=== PATIENT | female | born 1980 | race Caucasian/White ===

== ENCOUNTER 2016-09-01 15:49 | Emergency (ER) | payer OTHER ==
[~2016-09-01 15:49] MED LIST: MOTR200T44 PO; PERCOCET PO
[2016-09-01] MEDS ORDERED: diphenhydrAMINE INJ 50MG/ML VIAL (J1200) As Ordered ONE (16:50)
[2016-09-01] MEDS ORDERED: KETOROLAC 30 MG/ML VIAL (J1885) As Ordered ONE (16:50)
[2016-09-01] MEDS ORDERED: METOCLOPRAMIDE INJ 10MG/2ML VIAL (J2765) As Ordered ONE (16:50)
--- NOTE | 2016-09-01 18:58 | EDDOCDS ---
Nurse's Notes [facility] Name: Lexi Metcalf Age: 36 yrs Sex: Female : 1980 Arrival Date: 09/01/2016 Time: 15:49 Bed I1 / M1 Private MD: Luc Walker Diagnosis: Migraine Presentation: 09/01 15:55 Presenting complaint: Patient states: migraine since last night. Nausea. Photophobia. ttb Decreased appetite. Right sided head pain. Brought in via ambulance. This patient has no additional risk factors. Adult Sepsis Screening: The patient does not have new or worsening altered mentation. Patient's respiratory rate is less than 22. Systolic blood pressure is greater than 100. Patient has a qSOFA score of 0- Negative Sepsis Screen. Suicide/Homicide risk assessment- the patient denies having any suicidal and/or homicidal ideations and does not present with any other emotional, behavioral or mental health complaints. Status: Patient is not a biomedical service engineer or dependent. Transition of care: patient was not received from another setting of care. 15:55 Acuity: ALFRED Level 3 ttb 15:55 Method Of Arrival: Ambulance ttb Triage Assessment: 15:57 Headache History: This headache is like all previous headaches. General: Appears ttb uncomfortable, well nourished, Behavior is cooperative, pleasant. Pain: Pain currently is 10 out of 10 on a pain scale. Pain began gradually 1 day ago Also complains of nausea, photophobia. HIV screening NA for this visit Offered previously. Neurological: Level of Consciousness is awake, alert, Oriented to person, place, time, Gait is steady, Speech is normal, Denies weakness numbness Reports dizziness, headache photophobia. Cardiovascular: Chest pain is denied. Respiratory: No deficits noted. Airway is patent Denies cough, shortness of breath. GI: Reports nausea. Derm: Skin is normal. Injury Description: No known injury. ORTHOPEDIC ASSISTANT: 15:57 LMP 08/25/2016 ttb Historical: - Allergies: no known allergies; - Home Meds: 1. Fioricet Oral 1 cap as needed (Last dose: 09/01/2016 14:00) 2. hydroxyzine HCl 50 mg Oral tab 1 tab 4 times per day (Last dose: 09/01/2016 09:00) 3. trazodone 50 mg Oral tab 1 tab as needed for sleep (Last dose: Unknown) 4. Zoloft 75 mg Oral 1 tab once daily (Last dose: 09/01/2016 08:00) - PMHx: Migraine Headaches; Depression; Anxiety Disorder; - PSHx: ; abscess from right arm removed; - Social history: Smoking status: Patient states was never smoker of tobacco. Patient/guardian denies using alcohol, street drugs, No barriers to communication noted, The patient speaks fluent Faroese, Speaks appropriately for age. - Family history: Not pertinent. - : The pt / caregiver states he / she is not on anticoagulants. Home medication list is obtained from the patient. - Exposure Risk Screening:: None identified. Screenin:59 Screening information is obtained from the patient. Fall risk: No risks identified. kc3 Assistance ADL's: requires no assistance with activities of daily living. Abuse/DV Screen: The patient / caregiver reports he/she is: not in a situation that causes fear, pain or injury. Nutritional screening: No deficits noted. Advance Directives: Currently, there is no health care proxy. home support is adequate. Assessment: 16:58 General: Appears uncomfortable, Behavior is appropriate for age, cooperative. Pain: kc3 Location: headache Pain currently is 10 out of 10 on a pain scale. Pain: Pain began 1 day ago. Pain: Also complains of nausea, photophobia. Neurological: Level of Consciousness is awake, alert, obeys commands, Oriented to person, place, time. Respiratory: Respiratory effort is even, unlabored. Derm: Skin is pink, warm & dry. 18:00 General: Appears in no apparent distress, comfortable, to be sleeping. Neurological: No kc3 deficits noted. Respiratory: Respiratory effort is even, unlabored. Derm: Skin is pink, warm & dry. 18:51 General: Appears in no apparent distress, comfortable, Behavior is appropriate for age, kc3 cooperative. Pain: Denies pain. Neurological: Level of Consciousness is awake, alert, obeys commands, Oriented to person, place, time. Respiratory: Respiratory effort is even, unlabored. Derm: Skin is pink, warm & dry. Vital Signs: 15:51 BP 107 / 62; Pulse 96; Resp 18; Temp 98.3(O); Pulse Ox 96% ; Weight 122.47 kg; Height 5 cmb ft. 4 in. (162.56 cm); Pain 10/10; 18:50 BP 100 / 65; Pulse 77; Resp 18; Temp 97.1; Pulse Ox 100% on R/A; Pain 0/10; kc3 18:50 Pain 0/10; kc3 18:50 Pain 0/10; kc3 18:50 Pain 0/10; kc3 15:51 Body Mass Index 46.34 (122.47 kg, 162.56 cm) cmb Vitals: 15:51 Log In Time N/A - ambulance arrival. cmb ED Course: 15:49 Patient visited by Zeina Cortez. cmb 15:49 Patient moved to Waiting cmb 15:50 Luc Walker is Private Physician. cmb 15:52 Patient moved to Pre RCE cmb 15:56 Triage Initiated ttb 15:59 Patient visited by Shelly Savage, RN. ttb 16:29 Patient moved to Triage 3 jf3 16:43 [facility] ke 16:44 Patient visited by Pj Schmidt FNP. ke 16:44 Patient visited by Pj Schmidt FNP. ke 16:49 Patient moved to I1 / M1 jf3 16:57 Inserted saline lock: 20 gauge in right antecubital area The patient tolerated the kc3 procedure well. 16:59 Patient visited by Gladys Julio,KOMAL. ck1 16:59 Patient visited by Joanna Parrish,KOMAL. kc3 16:59 The patient / caregiver is instructed regarding the plan of care and ED course. kc3 17:18 [facility] [place] Agreement was scanned into [employer] and attached to record. gjb 17:21 Patient visited by Pj Schmidt FNP. ke 17:44 Patient visited by Pj Schmidt FNP. ke 18:11 Patient visited by Pj Schmidt FNP. ke 18:40 Patient visited by Pj Schmidt FNP. ke 18:40 Luc Walker is Referral Physician. ke 18:52 Discontinued IV lock intact, bleeding controlled, pressure dressing applied, No kc3 redness/swelling at site. No procedures done that require assistance. Administered Medications: 16:59 Drug: diphenhydrAMINE 50 mg [diphenhydramine 50 mg/mL injection solution (1 mL)] Route: ck1 IVP; Site: right antecubital; 18:50 Follow up: Pain 0/10 Adult kc3 16:59 Drug: ketorolac 30 mg [ketorolac 30 mg/mL (1 mL) injection solution (1 mL)] Route: IVP; ck1 Site: right antecubital; 18:50 Follow up: Pain 0/10 Adult kc3 17:00 Drug: NS 0.9% 1000 ml [sodium chloride 0.9 % intravenous solution] Route: IV; Rate: ck1 bolus; Site: right antecubital; 17:00 Drug: Metoclopramide 10 mg [metoclopramide 5 mg/mL injection solution] Route: IV; Rate: ck1 40 mg/hr; Infused Over: 15 mins; Site: right antecubital; 18:50 Follow up: Pain 0/10 Adult kc3 Order Results: There are currently no results for this order. Outcome: 18:41 Discharge ordered by Provider. ke 18:54 Discharge Assessment: Patient awake, alert and oriented x 3. No cognitive and/or kc3 functional deficits noted. Patient verbalized understanding of disposition instructions. patient administered narcotics - yes. Pt provided with safe discharge. The following High Risk Discharge criteria are identified: None. Condition: stable. Discharge instructions given to patient, Instructed on discharge instructions, follow up and referral plans. medication usage, Demonstrated understanding of instructions, medications, Pt was receptive of discharge instructions/ teaching. Prescriptions given X 1. No special radiology studies were completed. Property :Personal belongings accompany Pt. 18:57 Patient left the ED. kc3 Signatures: Pj Schmidt, AIRPORT OPERATIONS MANAGER AIRPORT OPERATIONS MANAGER Gladys GlasgowRN RN ck1 Zeina Cortez Teresa, RN RN nolbertob Joanna Parrish RN RN kc3 Cong Amanda RN RN Alicia Mancilla MTDD
--- NOTE | 2016-09-01 18:58 | EDDOCDS ---
Physician Documentation [facility] Name: Lexi Metcalf Age: 36 yrs Sex: Female : 1980 Arrival Date: 09/01/2016 Time: 15:49 Bed I1 / M1 Private MD: Luc Walker Disposition: 09/01/16 18:41 Discharged to Home/Self Care. Impression: Migraine. - Condition is Stable. - Discharge Instructions: Migraine Headache. - Prescriptions for Reglan 10 mg Oral Tablet - take 1 tablet by ORAL route every 6 hours take 30 minutes before meals and at bedtime; 20 tablet. - Medication Reconciliation, Local Pharmacy Hours form. - Follow up: Luc Walker; When: As needed; Reason: Continuance of care. - Problem is an acute exacerbation. - Symptoms are resolved. Historical: - Allergies: no known allergies; - Home Meds: 1. Fioricet Oral 1 cap as needed (Last dose: 09/01/2016 14:00) 2. hydroxyzine HCl 50 mg Oral tab 1 tab 4 times per day (Last dose: 09/01/2016 09:00) 3. trazodone 50 mg Oral tab 1 tab as needed for sleep (Last dose: Unknown) 4. Zoloft 75 mg Oral 1 tab once daily (Last dose: 09/01/2016 08:00) - PMHx: Migraine Headaches; Depression; Anxiety Disorder; - PSHx: ; abscess from right arm removed; - Social history: Smoking status: Patient states was never smoker of tobacco. Patient/guardian denies using alcohol, street drugs, No barriers to communication noted, The patient speaks fluent Greek, Speaks appropriately for age. - Family history: Not pertinent. - : The pt / caregiver states he / she is not on anticoagulants. Home medication list is obtained from the patient. - Exposure Risk Screening:: None identified. SHIP OFFICER: 09/01 15:57 LMP 08/25/2016 ttb Vital Signs: 15:51 BP 107 / 62; Pulse 96; Resp 18; Temp 98.3(O); Pulse Ox 96% ; Weight 122.47 kg / 270 cmb lbs; Height 5 ft. 4 in. (162.56 cm); Pain 10/10; 18:50 BP 100 / 65; Pulse 77; Resp 18; Temp 97.1; Pulse Ox 100% on R/A; Pain 0/10; kc3 18:50 Pain 0/10; kc3 18:50 Pain 0/10; kc3 18:50 Pain 0/10; kc3 15:51 Body Mass Index 46.34 (122.47 kg, 162.56 cm) cmb MDM: 16:49 IV Saline Lock ordered. ke 16:49 NS 0.9% 1000 ml IV at bolus once ordered. ke 16:49 Metoclopramide 10 mg IV at 40 mg/hr once over 15 mins ordered. ke 16:49 diphenhydrAMINE 50 mg IVP once ordered. ke 16:49 ketorolac 30 mg IVP once ordered. ke 17:11 Financial registration complete. gjb 17:18 [facility] Payment Agreement was scanned into [employer] and attached to record. gjb Administered Medications: 16:59 Drug: diphenhydrAMINE 50 mg [diphenhydramine 50 mg/mL injection solution (1 mL)] Route: ck1 IVP; Site: right antecubital; 18:50 Follow up: Pain 0/10 Adult kc3 16:59 Drug: ketorolac 30 mg [ketorolac 30 mg/mL (1 mL) injection solution (1 mL)] Route: IVP; ck1 Site: right antecubital; 18:50 Follow up: Pain 0/10 Adult kc3 17:00 Drug: NS 0.9% 1000 ml [sodium chloride 0.9 % intravenous solution] Route: IV; Rate: ck1 bolus; Site: right antecubital; 17:00 Drug: Metoclopramide 10 mg [metoclopramide 5 mg/mL injection solution] Route: IV; Rate: ck1 40 mg/hr; Infused Over: 15 mins; Site: right antecubital; 18:50 Follow up: Pain 0/10 Adult kc3 Signatures: Pj Schmidt, Shelly Martínez RN RN Joanna Stiles RN RN kc3 Alicia Ching Connie RN ck1 The chart was reviewed and I authenticate all verbal orders and agree with the evaluation and treatment provided.Attachments: 17:18 [facility] Payment Agreement gjb MTDD
--- NOTE | 2016-09-03 19:58 | EDDOCDS ---
Physician Documentation [facility] Name: Lexi Metcalf Age: 36 yrs Sex: Female : 1980 Arrival Date: 09/01/2016 Time: 15:49 Bed I1 / M1 Private MD: Luc Walker Disposition: 09/01/16 18:41 Discharged to Home/Self Care. Impression: Migraine. - Condition is Stable. - Discharge Instructions: Migraine Headache. - Prescriptions for Reglan 10 mg Oral Tablet - take 1 tablet by ORAL route every 6 hours take 30 minutes before meals and at bedtime; 20 tablet. - Medication Reconciliation, Local Pharmacy Hours form. - Follow up: Luc Walker; When: As needed; Reason: Continuance of care. - Problem is an acute exacerbation. - Symptoms are resolved. Historical: - Allergies: no known allergies; - Home Meds: 1. Fioricet Oral 1 cap as needed (Last dose: 09/01/2016 14:00) 2. hydroxyzine HCl 50 mg Oral tab 1 tab 4 times per day (Last dose: 09/01/2016 09:00) 3. trazodone 50 mg Oral tab 1 tab as needed for sleep (Last dose: Unknown) 4. Zoloft 75 mg Oral 1 tab once daily (Last dose: 09/01/2016 08:00) - PMHx: Migraine Headaches; Depression; Anxiety Disorder; - PSHx: ; abscess from right arm removed; - Social history: Smoking status: Patient states was never smoker of tobacco. Patient/guardian denies using alcohol, street drugs, No barriers to communication noted, The patient speaks fluent Persian, Speaks appropriately for age. - Family history: Not pertinent. - : The pt / caregiver states he / she is not on anticoagulants. Home medication list is obtained from the patient. - Exposure Risk Screening:: None identified. POULTRY FARM MANAGER: 09/01 15:57 LMP 08/25/2016 ttb Vital Signs: 15:51 BP 107 / 62; Pulse 96; Resp 18; Temp 98.3(O); Pulse Ox 96% ; Weight 122.47 kg / 270 cmb lbs; Height 5 ft. 4 in. (162.56 cm); Pain 10/10; 18:50 BP 100 / 65; Pulse 77; Resp 18; Temp 97.1; Pulse Ox 100% on R/A; Pain 0/10; kc3 18:50 Pain 0/10; kc3 18:50 Pain 0/10; kc3 18:50 Pain 0/10; kc3 15:51 Body Mass Index 46.34 (122.47 kg, 162.56 cm) cmb MDM: 16:49 IV Saline Lock ordered. ke 16:49 NS 0.9% 1000 ml IV at bolus once ordered. ke 16:49 Metoclopramide 10 mg IV at 40 mg/hr once over 15 mins ordered. ke 16:49 diphenhydrAMINE 50 mg IVP once ordered. ke 16:49 ketorolac 30 mg IVP once ordered. ke 17:11 Financial registration complete. [facility] 17:18 [facility] Payment Agreement was scanned into [employer] and attached to record. [facility] 09/02 09:57 T-Sheet-- Draft Copy was scanned into [employer] and attached to record. gb Administered Medications: 09/01 16:59 Drug: diphenhydrAMINE 50 mg [diphenhydramine 50 mg/mL injection solution (1 mL)] Route: ck1 IVP; Site: right antecubital; 18:50 Follow up: Pain 0/10 Adult kc3 16:59 Drug: ketorolac 30 mg [ketorolac 30 mg/mL (1 mL) injection solution (1 mL)] Route: IVP; ck1 Site: right antecubital; 18:50 Follow up: Pain 0/10 Adult kc3 17:00 Drug: NS 0.9% 1000 ml [sodium chloride 0.9 % intravenous solution] Route: IV; Rate: ck1 bolus; Site: right antecubital; 17:00 Drug: Metoclopramide 10 mg [metoclopramide 5 mg/mL injection solution] Route: IV; Rate: ck1 40 mg/hr; Infused Over: 15 mins; Site: right antecubital; 18:50 Follow up: Pain 0/10 Adult kc3 Signatures: Khushbu Fernandez, Manpreet Reg Pj Landeros, DRUM CLEANER DRUM CLEANER Shelly Marrero RN RN ttb Joanna Parrish RN RN kc3 Alicia Ching gjGladys Anne RN ck1 The chart was reviewed and I authenticate all verbal orders and agree with the evaluation and treatment provided.Attachments: 17:18 [facility] Payment Agreement gjb 09/02 09:57 T-Sheet-- Draft Copy gb Chart Complete MTDD
--- NOTE | 2016-09-03 19:58 | EDDOCDS ---
Physician Documentation [facility] Name: Lexi Metcalf Age: 36 yrs Sex: Female : 1980 Arrival Date: 09/01/2016 Time: 15:49 Bed I1 / M1 Private MD: Luc Walker Disposition: 09/01/16 18:41 Discharged to Home/Self Care. Impression: Migraine. - Condition is Stable. - Discharge Instructions: Migraine Headache. - Prescriptions for Reglan 10 mg Oral Tablet - take 1 tablet by ORAL route every 6 hours take 30 minutes before meals and at bedtime; 20 tablet. - Medication Reconciliation, Local Pharmacy Hours form. - Follow up: Luc Walker; When: As needed; Reason: Continuance of care. - Problem is an acute exacerbation. - Symptoms are resolved. Historical: - Allergies: no known allergies; - Home Meds: 1. Fioricet Oral 1 cap as needed (Last dose: 09/01/2016 14:00) 2. hydroxyzine HCl 50 mg Oral tab 1 tab 4 times per day (Last dose: 09/01/2016 09:00) 3. trazodone 50 mg Oral tab 1 tab as needed for sleep (Last dose: Unknown) 4. Zoloft 75 mg Oral 1 tab once daily (Last dose: 09/01/2016 08:00) - PMHx: Migraine Headaches; Depression; Anxiety Disorder; - PSHx: ; abscess from right arm removed; - Social history: Smoking status: Patient states was never smoker of tobacco. Patient/guardian denies using alcohol, street drugs, No barriers to communication noted, The patient speaks fluent Pashto, Speaks appropriately for age. - Family history: Not pertinent. - : The pt / caregiver states he / she is not on anticoagulants. Home medication list is obtained from the patient. - Exposure Risk Screening:: None identified. CLINICAL REVIEW SPECIALIST: 09/01 15:57 LMP 08/25/2016 ttb Vital Signs: 15:51 BP 107 / 62; Pulse 96; Resp 18; Temp 98.3(O); Pulse Ox 96% ; Weight 122.47 kg / 270 cmb lbs; Height 5 ft. 4 in. (162.56 cm); Pain 10/10; 18:50 BP 100 / 65; Pulse 77; Resp 18; Temp 97.1; Pulse Ox 100% on R/A; Pain 0/10; kc3 18:50 Pain 0/10; kc3 18:50 Pain 0/10; kc3 18:50 Pain 0/10; kc3 15:51 Body Mass Index 46.34 (122.47 kg, 162.56 cm) cmb MDM: 16:49 IV Saline Lock ordered. ke 16:49 NS 0.9% 1000 ml IV at bolus once ordered. ke 16:49 Metoclopramide 10 mg IV at 40 mg/hr once over 15 mins ordered. ke 16:49 diphenhydrAMINE 50 mg IVP once ordered. ke 16:49 ketorolac 30 mg IVP once ordered. ke 17:11 Financial registration complete. [facility] 17:18 [facility] Payment Agreement was scanned into [employer] and attached to record. [facility] 09/02 09:57 T-Sheet-- Draft Copy was scanned into [employer] and attached to record. gb Administered Medications: 09/01 16:59 Drug: diphenhydrAMINE 50 mg [diphenhydramine 50 mg/mL injection solution (1 mL)] Route: ck1 IVP; Site: right antecubital; 18:50 Follow up: Pain 0/10 Adult kc3 16:59 Drug: ketorolac 30 mg [ketorolac 30 mg/mL (1 mL) injection solution (1 mL)] Route: IVP; ck1 Site: right antecubital; 18:50 Follow up: Pain 0/10 Adult kc3 17:00 Drug: NS 0.9% 1000 ml [sodium chloride 0.9 % intravenous solution] Route: IV; Rate: ck1 bolus; Site: right antecubital; 17:00 Drug: Metoclopramide 10 mg [metoclopramide 5 mg/mL injection solution] Route: IV; Rate: ck1 40 mg/hr; Infused Over: 15 mins; Site: right antecubital; 18:50 Follow up: Pain 0/10 Adult kc3 Signatures: Khushbu Fernandez, Manpreet Reg Pj Landeros, THREAD REELER THREAD REELER Shelly Marrero RN RN ttb Joanna Parrish RN RN kc3 Alicia Ching gjGladys Anne RN ck1 The chart was reviewed and I authenticate all verbal orders and agree with the evaluation and treatment provided.Attachments: 17:18 [facility] Payment Agreement gjb 09/02 09:57 T-Sheet-- Draft Copy gb Chart Complete MTDD
--- NOTE | 2016-09-03 19:58 | EDDOCDS ---
Nurse's Notes [facility] Name: Lexi Metcalf Age: 36 yrs Sex: Female : 1980 Arrival Date: 09/01/2016 Time: 15:49 Bed I1 / M1 Private MD: Luc Walker Diagnosis: Migraine Presentation: 09/01 15:55 Presenting complaint: Patient states: migraine since last night. Nausea. Photophobia. ttb Decreased appetite. Right sided head pain. Brought in via ambulance. This patient has no additional risk factors. Adult Sepsis Screening: The patient does not have new or worsening altered mentation. Patient's respiratory rate is less than 22. Systolic blood pressure is greater than 100. Patient has a qSOFA score of 0- Negative Sepsis Screen. Suicide/Homicide risk assessment- the patient denies having any suicidal and/or homicidal ideations and does not present with any other emotional, behavioral or mental health complaints. 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 Transition of care: patient was not received from another setting of care. 15:55 Acuity: ALFRED Level 3 ttb 15:55 Method Of Arrival: Ambulance ttb Triage Assessment: 15:57 Headache History: This headache is like all previous headaches. General: Appears ttb uncomfortable, well nourished, Behavior is cooperative, pleasant. Pain: Pain currently is 10 out of 10 on a pain scale. Pain began gradually 1 day ago Also complains of nausea, photophobia. HIV screening NA for this visit Offered previously. Neurological: Level of Consciousness is awake, alert, Oriented to person, place, time, Gait is steady, Speech is normal, Denies weakness numbness Reports dizziness, headache photophobia. Cardiovascular: Chest pain is denied. Respiratory: No deficits noted. Airway is patent Denies cough, shortness of breath. GI: Reports nausea. Derm: Skin is normal. Injury Description: No known injury. 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 Fioricet Oral 1 cap as needed (Last dose: 09/01/2016 14:00) 2. hydroxyzine HCl 50 mg Oral tab 1 tab 4 times per day (Last dose: 09/01/2016 09:00) 3. trazodone 50 mg Oral tab 1 tab as needed for sleep (Last dose: Unknown) 4. Zoloft 75 mg Oral 1 tab once daily (Last dose: 09/01/2016 08:00) - PMHx: Migraine Headaches; Depression; Anxiety Disorder; - PSHx: ; abscess from right arm removed; - Social history: Smoking status: Patient states was never smoker of tobacco. Patient/guardian denies using alcohol, street drugs, No barriers to communication noted, The patient speaks fluent Divehi, Speaks appropriately for age. - Family history: Not pertinent. - : The pt / caregiver states he / she is not on anticoagulants. Home medication list is obtained from the patient. - Exposure Risk Screening:: None identified. Screenin:59 Screening information is obtained from the patient. Fall risk: No risks identified. kc3 Assistance ADL's: requires no assistance with activities of daily living. Abuse/DV Screen: The patient / caregiver reports he/she is: not in a situation that causes fear, pain or injury. Nutritional screening: No deficits noted. Advance Directives: Currently, there is no health care proxy. home support is adequate. Assessment: 16:58 General: Appears uncomfortable, Behavior is appropriate for age, cooperative. Pain: kc3 Location: headache Pain currently is 10 out of 10 on a pain scale. Pain: Pain began 1 day ago. Pain: Also complains of nausea, photophobia. Neurological: Level of Consciousness is awake, alert, obeys commands, Oriented to person, place, time. Respiratory: Respiratory effort is even, unlabored. Derm: Skin is pink, warm & dry. 18:00 General: Appears in no apparent distress, comfortable, to be sleeping. Neurological: No kc3 deficits noted. Respiratory: Respiratory effort is even, unlabored. Derm: Skin is pink, warm & dry. 18:51 General: Appears in no apparent distress, comfortable, Behavior is appropriate for age, kc3 cooperative. Pain: Denies pain. Neurological: Level of Consciousness is awake, alert, obeys commands, Oriented to person, place, time. Respiratory: Respiratory effort is even, unlabored. Derm: Skin is pink, warm & dry. Vital Signs: 15:51 BP 107 / 62; Pulse 96; Resp 18; Temp 98.3(O); Pulse Ox 96% ; Weight 122.47 kg; Height 5 cmb ft. 4 in. (162.56 cm); Pain 10/10; 18:50 BP 100 / 65; Pulse 77; Resp 18; Temp 97.1; Pulse Ox 100% on R/A; Pain 0/10; kc3 18:50 Pain 0/10; kc3 18:50 Pain 0/10; kc3 18:50 Pain 0/10; kc3 15:51 Body Mass Index 46.34 (122.47 kg, 162.56 cm) cmb Vitals: 15:51 Log In Time N/A - ambulance arrival. cmb ED Course: 15:49 Patient visited by Zeina Cortez. cmb 15:49 Patient moved to Waiting cmb 15:50 Luc Walker is Private Physician. cmb 15:52 Patient moved to Pre RCE cmb 15:56 Triage Initiated ttb 15:59 Patient visited by Shelly Savage, RN. ttb 16:29 Patient moved to Triage 3 jf3 16:43 [facility] ke 16:44 Patient visited by Pj Schmidt FNP. ke 16:44 Patient visited by Pj Schmidt FNP. ke 16:49 Patient moved to I1 / M1 jf3 16:57 Inserted saline lock: 20 gauge in right antecubital area The patient tolerated the kc3 procedure well. 16:59 Patient visited by Gladys Julio,RN. ck1 16:59 Patient visited by Joanna Parrish,KOMAL. kc3 16:59 The patient / caregiver is instructed regarding the plan of care and ED course. kc3 17:18 [facility] Payment Agreement was scanned into [employer] and attached to record. gjb 17:21 Patient visited by Pj Schmidt FNP. ke 17:44 Patient visited by Pj Schmidt FNP. ke 18:11 Patient visited by Pj Schmidt FNP. ke 18:40 Patient visited by Pj Schmidt FNP. ke 18:40 Luc Walker is Referral Physician. ke 18:52 Discontinued IV lock intact, bleeding controlled, pressure dressing applied, No kc3 redness/swelling at site. No procedures done that require assistance. 09/02 09:57 T-Sheet-- Draft Copy was scanned into [employer] and attached to record. gb Administered Medications: 09/01 16:59 Drug: diphenhydrAMINE 50 mg [diphenhydramine 50 mg/mL injection solution (1 mL)] Route: ck1 IVP; Site: right antecubital; 18:50 Follow up: Pain 0/10 Adult kc3 16:59 Drug: ketorolac 30 mg [ketorolac 30 mg/mL (1 mL) injection solution (1 mL)] Route: IVP; ck1 Site: right antecubital; 18:50 Follow up: Pain 0/10 Adult kc3 17:00 Drug: NS 0.9% 1000 ml [sodium chloride 0.9 % intravenous solution] Route: IV; Rate: ck1 bolus; Site: right antecubital; 17:00 Drug: Metoclopramide 10 mg [metoclopramide 5 mg/mL injection solution] Route: IV; Rate: ck1 40 mg/hr; Infused Over: 15 mins; Site: right antecubital; 18:50 Follow up: Pain 0/10 Adult kc3 Order Results: There are currently no results for this order. Outcome: 18:41 Discharge ordered by Provider. ke 18:54 Discharge Assessment: Patient awake, alert and oriented x 3. No cognitive and/or kc3 functional deficits noted. Patient verbalized understanding of disposition instructions. patient administered narcotics - yes. Pt provided with safe discharge. The following High Risk Discharge criteria are identified: None. Condition: stable. Discharge instructions given to patient, Instructed on discharge instructions, follow up and referral plans. medication usage, Demonstrated understanding of instructions, medications, Pt was receptive of discharge instructions/ teaching. Prescriptions given X 1. No special radiology studies were completed. Property :Personal belongings accompany Pt. 18:57 Patient left the ED. kc3 Signatures: Khushbu Fernandez, Reg Reg gb Pj Schmidt, [employer]ER [employer] TE[employer] ke Gladys JulioRN RN ck1 Zeina Cortez Teresa, RN RN Joanna Stiles RN RN kc3 Cong Amanda RN RN jf3 Alicia Ching Chart Complete MTDD
== END 2016-09-01 18:57 | disposition home or self-care (01) ==
LOC: M ED 15:49
DX: G43.909 Migraine, unspecified, not intractable, without status migrainosus (principal); G44.019 Episodic cluster headache, not intractable; F32.9 Major depressive disorder, single episode, unspecified; F41.9 Anxiety disorder, unspecified; Z79.899 Other long term (current) drug therapy
CPT/HCPCS: 96374; 96375; 99283; J1200; J1885; J2765

== ENCOUNTER 2017-01-30 05:01 | Emergency (ER) | payer OTHER ==
[~2017-01-30] VITALS: Ht 162.6 cm; Wt 117.9 kg
[2017-01-30] MEDS ORDERED: DIVA500T3 (05:20)
[2017-01-30] MEDS ORDERED: SERT-138 (05:20)
[2017-01-30] MEDS ORDERED: SUMA100T2 (05:20)
[2017-01-30] MEDS ORDERED: HYDR-4274 (05:20)
[2017-01-30] MEDS ORDERED: MELO7.5T6 (05:20)
[2017-01-30 05:51] LABS: YEAST LIKE CELL URINE AUTO SMALL
[2017-01-30 07:10] LABS: CONTROL LINE UCG INT CTR LINE PRESENT
[2017-01-30] MEDS ORDERED: PYRI200T5 PO (07:13)
[2017-01-30] MEDS ORDERED: BACT800T5 PO (07:13)
[2017-01-30] MEDS ORDERED: DIFL200T PO (07:13)
[2017-01-30] MEDS ORDERED: PHENAZOPYRIDINE 100 MG TAB PO ONE (07:15)
[2017-01-30] MEDS ORDERED: BACTRIM 160MG/800MG DS TAB PO ONE (07:15)
[2017-01-30] MEDS ORDERED: FLUCONAZOLE 100 MG TAB PO ONE (07:15)
[2017-01-30 07:22] VITALS: BP 122/5
== END 2017-01-30 07:28 | disposition home or self-care (01) ==
LOC: M ED 05:36
DX: N30.01 Acute cystitis with hematuria (principal); B37.3 Candidiasis of vulva and vagina; R10.2 Pelvic and perineal pain; R51 Headache; F32.9 Major depressive disorder, single episode, unspecified; Z87.440 Personal history of urinary (tract) infections; Z79.899 Other long term (current) drug therapy

== ENCOUNTER 2017-03-05 14:20 | Emergency (ER) | payer OTHER ==
[~2017-03-05] VITALS: Ht 162.6 cm; Wt 121.5 kg
[~2017-03-05 14:20] MED LIST changes: +BACT800T5 PO; +DIFL200T PO; +DIVA500T3; +HYDR50TA70; +MELO7.5T7; +PYRI1TAB5 PO; +SERT-138; +SUMA100T2
[2017-03-05 14:21] VITALS: BP 129/69
[2017-03-05] MEDS ORDERED: BACTRIM 160MG/800MG DS TAB PO ONE (15:00)
[2017-03-05] MEDS ORDERED: ACETAMINOPHEN 325 MG TAB PO ONE (15:00)
[2017-03-05] MEDS ORDERED: PHENAZOPYRIDINE 100 MG TAB PO ONE (15:00)
[2017-03-05] MEDS ORDERED: BACT800T5 PO (15:03)
== END 2017-03-05 15:09 | disposition home or self-care (01) ==
LOC: M ED 14:20
DX: N30.01 Acute cystitis with hematuria (principal); F32.9 Major depressive disorder, single episode, unspecified; R51 Headache; Z87.440 Personal history of urinary (tract) infections; Z87.891 Personal history of nicotine dependence; Z79.899 Other long term (current) drug therapy

== ENCOUNTER 2017-07-16 16:56 | Emergency (ER) | payer OTHER ==
[~2017-07-16] VITALS: Ht 162.6 cm; Wt 122.2 kg
[2017-07-16] MEDS ORDERED: NORCOTAB PO (19:05)
[2017-07-16] MEDS ORDERED: CLEO300C2 PO (19:05)
[2017-07-16 19:13] VITALS: BP 124/75
[2017-07-16] MEDS ORDERED: CLINDAMYCIN 150 MG CAP PO ONE (19:15)
[2017-07-16] MEDS ORDERED: NORCO 5/325MG TABLET (BULK FOR ED) PO ONE (19:15)
== END 2017-07-16 19:20 | disposition home or self-care (01) ==
LOC: M ED 16:56
DX: L02.412 Cutaneous abscess of left axilla (principal); F41.9 Anxiety disorder, unspecified; F33.9 Major depressive disorder, recurrent, unspecified; E66.9 Obesity, unspecified; Z79.899 Other long term (current) drug therapy; Z98.890 Other specified postprocedural states; Z87.2 Personal history of diseases of the skin and subcutaneous tissue

== ENCOUNTER 2017-08-15 15:44 | Emergency (ER) | payer OTHER ==
[2017-08-15] MEDS: NS 1,000 ML IV (17:37)
[2017-08-15] MEDS: KETOROLAC 30 MG/ML VIAL (J1885) IV (17:37)
[2017-08-15] MEDS: diphenhydrAMINE INJ 50MG/ML VIAL (J1200) IV (17:38)
[2017-08-15] MEDS: METOCLOPRAMIDE INJ 10MG/2ML VIAL (J2765) IV (17:41)
== END 2017-08-15 19:22 | disposition home or self-care (01) ==
LOC: M ED 15:44
DX: G43.009 Migraine without aura, not intractable, without status migrainosus (principal); G89.29 Other chronic pain; Z79.899 Other long term (current) drug therapy; Z87.891 Personal history of nicotine dependence
CPT/HCPCS: J1200

== ENCOUNTER 2017-09-10 18:13 | Emergency (ER) | payer OTHER ==
[2017-09-10] MEDS: METOCLOPRAMIDE INJ 10MG/2ML VIAL (J2765) IV (18:30)
[2017-09-10] MEDS: KETOROLAC 30 MG/ML VIAL (J1885) IV (18:54)
[2017-09-10] MEDS: diphenhydrAMINE INJ 50MG/ML VIAL (J1200) IV (18:54)
[2017-09-10] MEDS: NS 1,000 ML IV (18:55)
== END 2017-09-10 20:22 | disposition home or self-care (01) ==
LOC: M ED 18:13
DX: G43.009 Migraine without aura, not intractable, without status migrainosus (principal); G89.29 Other chronic pain; Z79.899 Other long term (current) drug therapy; Z87.891 Personal history of nicotine dependence
CPT/HCPCS: J1200

== ENCOUNTER 2017-09-15 16:41 | Emergency (ER) | payer OTHER ==
[2017-09-15] MEDS: NS 1,000 ML IV (20:40)
[2017-09-15] MEDS: METOCLOPRAMIDE INJ 10MG/2ML VIAL (J2765) IV (20:40)
[2017-09-15] MEDS: KETOROLAC 30 MG/ML VIAL (J1885) IV (20:40)
[2017-09-15] MEDS: ACETAMINOPHEN 325 MG TAB PO (20:40)
[2017-09-15 20:46] LABS: BASO % 0.3 % (0.0-1.0); HEMATOCRIT 37.8 % (36.0-47.0); HEMOGLOBIN 12.1 g/dl (12.0-16.0); LYMPH # 0.5 10^3/uL (1.5-4.5); MEAN CORPUSCULAR HEMOGLOBIN 25.6 pg (27.0-33.0); MEAN CORPUSCULAR VOLUME 79.9 fl (80.0-96.0); MONO # 0.5 10^3/uL (0.0-0.8); MONO % 15.7 % (0.0-5.0); PLATELET COUNT, AUTOMATED 172 10^3/uL (150-450); RED BLOOD COUNT 4.73 10^6/uL (4.00-5.40); RED CELL DISTRIBUTION WIDTH 13.9 % (11.5-14.5)
[2017-09-15 21:06] LABS: ANION GAP 5 MEQ/L (8-16); BLOOD UREA NITROGEN 10 MG/DL (7-18); CALCIUM LEVEL 8.2 MG/DL (8.5-10.1); CARBON DIOXIDE LEVEL 28 MEQ/L (21-32); CHLORIDE LEVEL 104 MEQ/L (98-107); CREATININE FOR GFR 0.67 MG/DL (0.55-1.02); GLOMERULAR FILTRATION RATE > 60.0 (>60); GLUCOSE, FASTING 97 MG/DL (70-100); SODIUM LEVEL 137 MEQ/L (136-145)
[2017-09-15 21:10] LABS: ERYTHROCYTE SEDIMENTATION RATE 21 mm/hr (0-20)
== END 2017-09-15 22:27 | disposition home or self-care (01) ==
LOC: M ED 16:41
DX: G43.909 Migraine, unspecified, not intractable, without status migrainosus (principal); B34.9 Viral infection, unspecified; Z87.891 Personal history of nicotine dependence
CPT/HCPCS: J1885

== ENCOUNTER → 2017-09-27 | Outpatient (CLI) | payer OTHER | LOC: M RAD 14:22 | DX: L73.2 Hidradenitis suppurativa (principal) | CPT/HCPCS: 76882 ==

== ENCOUNTER 2017-12-06 05:01 | Emergency (ER) | payer OTHER ==
[2017-12-06 06:10] LABS: BASO % 0.3 % (0.0-1.0); EOS # 0.1 10^3/uL (0.0-0.50); EOS % 2.2 % (0.0-3.0); HEMATOCRIT 39.2 % (36.0-47.0); HEMOGLOBIN 12.5 g/dl (12.0-15.5); IMMATURE GRANULOCYTE % 0.2 % (0-3.0); LYMPH # 1.6 10^3/uL (1.5-4.5); LYMPH % 25.2 % (24.0-44.0); MEAN CORPUSCULAR HEMOGLOBIN 25.1 pg (27.0-33.0); MEAN CORPUSCULAR HGB CONC 31.9 g/dl (32.0-36.5); MEAN CORPUSCULAR VOLUME 78.6 fl (80.0-96.0); MONO # 0.6 10^3/uL (0.0-0.8); MONO % 9.1 % (0.0-5.0); PLATELET COUNT, AUTOMATED 246 10^3/uL (150-450); RED BLOOD COUNT 4.99 10^6/uL (4.00-5.40); WHITE BLOOD COUNT 6.4 10^3/uL (4.0-10.0)
[2017-12-06 06:16] LABS: APPEARANCE, URINE HAZY (CLEAR); BACTERIA, URINE AUTO NEGATIVE (NEGATIVE); BILIRUBIN, URINE AUTO NEGATIVE (NEGATIVE); BLOOD, URINE BLOOD 3+ (NEGATIVE); COLOR, URINE YELLOW (YELLOW); GLUCOSE, URINE (UA) AUTO NEGATIVE (NEGATIVE); KETONE, URINE AUTO NEGATIVE (NEGATIVE); LEUKOCYTE ESTERASE, URINE AUTO NEGATIVE (NEGATIVE); NITRITE, URINE AUTO NEGATIVE (NEGATIVE); PROTEIN, URINE AUTO NEGATIVE (NEGATIVE); RBC, URINE AUTO TNTC /HPF (0-3); SQUAMOUS EPITHELIAL CELL UR AU 1 /HPF (0-6); UROBILINOGEN, URINE AUTO 0.2 mg/dL (0.0-2.0); WBC, URINE AUTO 8 /HPF (0-3); YEAST LIKE CELL URINE AUTO SMALL
[2017-12-06 06:24] LABS: CONTROL LINE HCG INT CTR LINE PRESENT; HCG, SERUM QUALITATIVE NEGATIVE (NEGATIVE)
[2017-12-06] MEDS: MORPHINE 4 MG/ML 1ML VIAL/SYRINGE (J2270) IV (06:30)
[2017-12-06] MEDS: METOCLOPRAMIDE INJ 10MG/2ML VIAL (J2765) IV (06:31)
[2017-12-06] MEDS: NS 1,000 ML IV (06:31)
[2017-12-06 06:34] LABS: ALBUMIN 3.5 GM/DL (3.2-5.2); ALBUMIN/GLOBULIN RATIO 0.85 (1.00-1.93); ALKALINE PHOSPHATASE 88 U/L (45-117); ALT/SGPT 25 U/L (12-78); ANION GAP 3 MEQ/L (8-16); AST/SGOT 18 U/L (7-37); BILIRUBIN,DIRECT < 0.1 MG/DL (0.0-0.2); BILIRUBIN,TOTAL 0.2 MG/DL (0.2-1.0); BLOOD UREA NITROGEN 16 MG/DL (7-18); CALCIUM LEVEL 8.6 MG/DL (8.5-10.1); CARBON DIOXIDE LEVEL 30 MEQ/L (21-32); CHLORIDE LEVEL 106 MEQ/L (98-107); CREATININE FOR GFR 0.65 MG/DL (0.55-1.30); GLOMERULAR FILTRATION RATE > 60.0 (>60); GLUCOSE, FASTING 115 MG/DL (70-100); LIPASE 162 U/L (73-393); POTASSIUM SERUM 4.4 MEQ/L (3.5-5.1); SODIUM LEVEL 139 MEQ/L (136-145); TOTAL PROTEIN 7.6 GM/DL (6.4-8.2)
== END 2017-12-06 08:55 | disposition home or self-care (01) ==
LOC: M ED 05:01
DX: K83.8 Other specified diseases of biliary tract (principal); R11.2 Nausea with vomiting, unspecified; F33.9 Major depressive disorder, recurrent, unspecified; G43.909 Migraine, unspecified, not intractable, without status migrainosus; Z87.891 Personal history of nicotine dependence
CPT/HCPCS: J2270

== ENCOUNTER 2017-12-16 10:28 | Day surgery (SDC) | payer OTHER ==
[2017-12-16] MEDS: LR 1,000 ML IV ×2 (11:54)
[2017-12-16] MEDS ORDERED: ROCURONIUM BROMIDE 50 MG/5 ML VIAL As Ordered ×2 (12:22)
[2017-12-16] MEDS ORDERED: PROPOFOL 200 MG/20 ML VIAL As Ordered ×2 (12:22)
[2017-12-16] MEDS ORDERED: fentaNYL 100 MCG/2 ML INJECTION (J3010) As Ordered ×4 (12:23→14:20)
[2017-12-16] MEDS ORDERED: MIDAZOLAM INJ 2 MG/2 ML VIAL (J2250) As Ordered ×2 (12:24)
[2017-12-16] MEDS ORDERED: LIDOCAINE 2% INJ 100 MG/5 ML SDV (FOR ANES.) As Ordered ×2 (12:33)
[2017-12-16] MEDS ORDERED: LIDOCAINE W/EPINEPHRINE 1% 20ML VIAL As Ordered ×2 (12:43)
[2017-12-16] MEDS ORDERED: fentaNYL 100 MCG/2 ML INJECTION (J3010) IV ×2 (14:45)
[2017-12-16] MEDS ORDERED: LR 1,000 ML IV ×2 (14:45)
[2017-12-16] MEDS ORDERED: NORCO, ANEXSIA 5/325MG TABLET (HYDROcodone/ACETAMINOPHEN) PO ×2 (14:45)
[2017-12-16] MEDS ORDERED: METOCLOPRAMIDE INJ 10MG/2ML VIAL (J2765) IV ×2 (14:45)
[2017-12-16] MEDS: ONDANSETRON 4MG/2ML VIAL (J2405) IV ×2 (15:15)
[2017-12-16] MEDS: PERCOCET 5MG/325MG TAB PO ×4 (15:15→15:41)
== END 2017-12-16 18:20 | disposition home or self-care (01) ==
LOC: M SDC 10:28
DX: K80.20 Calculus of gallbladder without cholecystitis without obstruction (principal); K21.9 Gastro-esophageal reflux disease without esophagitis; F41.9 Anxiety disorder, unspecified; F32.9 Major depressive disorder, single episode, unspecified; Z87.891 Personal history of nicotine dependence; Z79.899 Other long term (current) drug therapy
CPT/HCPCS: 47562

== ENCOUNTER → 2018-01-06 | Outpatient (REF) | payer OTHER ==
[2018-01-06 18:23] LABS: ESTIMATED AVERAGE GLUCOSE 120 MG/DL (60-110); HEMOGLOBIN A1c 5.8 %
[2018-01-06 18:39] LABS: TOTAL 25(OH) VITAMIN D 20.7 NG/ML (30.0-100.0)
[2018-01-06 18:41] LABS: CHOLESTEROL LEVEL 156 MG/DL (<200); CHOLESTEROL RISK RATIO 4.216 (<5); HDL CHOLESTEROL 37 MG/DL (>40); LDL CHOLESTEROL 84.6 MG/DL (<100); NON-HDL-C 119 MG/DL; TRIGLYCERIDES LEVEL 172 MG/DL (<150)
[2018-01-06 19:19] LABS: HIV 1&2 SCREEN CENTAUR NEGATIVE (NEGATIVE)
[2018-01-06 20:09] LABS: CHLAMYDIA DNA AMPLIFICATION NEGATIVE (NEGATIVE); GC DNA AMPLIFICATION NEGATIVE (NEGATIVE)
[2018-01-09 09:20] LABS: HEPATITIS B SURFACE ANTIBODY POSITIVE (POSITIVE)
== END ==
LOC: M LAB REF 16:42
DX: Z00.00 Encounter for general adult medical examination without abnormal findings (principal)
CPT/HCPCS: 84443

== ENCOUNTER 2018-03-02 12:30 | Emergency (ER) | payer OTHER, MEDICAID | END 2018-03-02 15:16 | disposition home or self-care (01) | LOC: M ED 12:30 | DX: J02.0 Streptococcal pharyngitis (principal); R51 Headache; Z87.440 Personal history of urinary (tract) infections; F41.9 Anxiety disorder, unspecified; F32.9 Major depressive disorder, single episode, unspecified; Z79.899 Other long term (current) drug therapy | CPT/HCPCS: 87880 ==

== ENCOUNTER 2018-03-28 10:26 | Outpatient (RCR) | payer OTHER | END 2018-04-21 | LOC: M PT 10:26 | DX: Z51.89 Encounter for other specified aftercare (principal); M54.2 Cervicalgia; M54.5 Low back pain | CPT/HCPCS: 97010 ==

== ENCOUNTER → 2018-04-11 | Outpatient (REF) | LOC: M SMT 12:23 | DX: Z02.9 Encounter for administrative examinations, unspecified (principal) ==

== ENCOUNTER 2018-05-29 10:04 | Emergency (ER) | payer OTHER, MEDICAID | END 2018-05-29 11:31 | disposition home or self-care (01) | LOC: M ED 10:04 | DX: M54.5 Low back pain (principal); G89.29 Other chronic pain; M51.9 Unspecified thoracic, thoracolumbar and lumbosacral intervertebral disc disorder; R51 Headache; Z87.891 Personal history of nicotine dependence; Z79.899 Other long term (current) drug therapy | CPT/HCPCS: 99283 ==

== ENCOUNTER 2018-09-20 12:30 | Outpatient (RCR) | payer OTHER ==
[~2018-09-20 12:30] MED LIST changes: +CETI10TA PO; +CLEO300C2 PO; -DIVA500T3; +DIVA500T94 PO; +HYDR-643; -HYDR50TA70; +HYDR50TA70 PO; +IBUP80TA PO; +IMIT100T PO; +KEFL500C17 PO; +NAPR-885; +NORCOTAB PO; +PERC5TAB12 PO; +SERT-155 PO; +SUMA100T2 PO; +Tizanidine
== END 2018-09-21 ==
LOC: M PT 12:30
PROVIDERS: ATTEND Family Medicine Addiction Medicine
DX: M54.5 Low back pain (principal)

== ENCOUNTER 2018-10-18 09:45 | Outpatient (RCR) | payer OTHER | END 2018-10-19 | LOC: M PT 09:45 | PROVIDERS: ATTEND Family Medicine Addiction Medicine | DX: M54.5 Low back pain (principal) ==

== ENCOUNTER 2018-11-07 09:18 | Outpatient (RCR) | payer OTHER, MEDICAID | END 2018-11-19 | LOC: M PT 09:18 | PROVIDERS: ATTEND Family Medicine Addiction Medicine | DX: M54.5 Low back pain (principal) ==

== ENCOUNTER 2019-02-15 09:26 | Outpatient (RCR) | payer OTHER ==
[~2019-02-15 09:26] MED LIST changes: +HYDR-3715 PO; -NORCOTAB PO
== END 2019-02-18 ==
LOC: M PT 09:26
PROVIDERS: ATTEND Family Medicine Addiction Medicine
DX: M54.5 Low back pain (principal)

== ENCOUNTER 2019-03-07 11:15 | Outpatient (RCR) | payer OTHER | END 2019-03-21 | LOC: M PT 11:15 | PROVIDERS: ATTEND Family Medicine Addiction Medicine | DX: Z51.89 Encounter for other specified aftercare (principal); M54.5 Low back pain ==

== ENCOUNTER 2019-07-05 16:38 | Emergency (ER) | payer MEDICAID, OTHER ==
[~2019-07-05 16:38] MED LIST changes: -SERT-155 PO; +SERT50TA29 PO
[2019-07-05] MEDS ORDERED: TIZA4TAB4 PO (16:49)
[2019-07-05] MEDS ORDERED: KETOROLAC 30 MG/ML VIAL (J1885) IV ONE (17:15)
[2019-07-05] MEDS ORDERED: ONDANSETRON 4MG/2ML VIAL (J2405) IV ONE (17:15)
[2019-07-05] MEDS ORDERED: diphenhydrAMINE INJ 50MG/ML VIAL (J1200) IV ONE (17:15)
[2019-07-05 20:10] VITALS: BP 121/68
== END 2019-07-05 20:13 | disposition home or self-care (01) ==
LOC: EDBD 16:38 → M ED 16:38
DX: G43.019 Migraine without aura, intractable, without status migrainosus (principal); F90.9 Attention-deficit hyperactivity disorder, unspecified type; M54.9 Dorsalgia, unspecified; F32.9 Major depressive disorder, single episode, unspecified; Z87.891 Personal history of nicotine dependence; Z79.899 Other long term (current) drug therapy
CPT/HCPCS: 96374; 96375; 99284; J1200; J1885; J2405

== ENCOUNTER 2019-07-29 01:16 | Emergency (ER) | payer MEDICAID, OTHER ==
[~2019-07-29] VITALS: Ht 162.6 cm; Wt 136.4 kg
[~2019-07-29 01:16] MED LIST changes: +TIZA4TAB4 PO
[2019-07-29] MEDS ORDERED: IPRA6SP (01:45)
[2019-07-29] MEDS ORDERED: NS 1,000 ML IV ONE (01:45)
[2019-07-29] MEDS ORDERED: GI COCKTAIL 50ML BTL(HYOSCYAMINE/MAALOX/LIDOCAINE VISCOUS)(1:3:1) PO ONE (01:45)
[2019-07-29] MEDS ORDERED: BENZ-18 (01:45)
[2019-07-29] MEDS ORDERED: ALBUTEROL SULFATE 2.5 MG/0.5 ML INH NEB SOLN NEB ONE (01:45)
[2019-07-29 03:25] LABS: INFLUENZA A AMPLIFICATION NEGATIVE (NEGATIVE); INFLUENZA B AMPLIFICATION NEGATIVE (NEGATIVE)
[2019-07-29 03:47] LABS: BASO % 0.2 % (0.0-1.0); EOS # 0.1 10^3/uL (0.0-0.5); EOS % 0.7 % (0.0-3.0); HEMATOCRIT 42.3 % (36.0-47.0); HEMOGLOBIN 13.3 g/dl (12.0-15.5); LYMPH # 2.3 10^3/uL (1.5-5.0); LYMPH % 22.1 % (24.0-44.0); MEAN CORPUSCULAR HEMOGLOBIN 25.8 pg (27.0-33.0); MEAN CORPUSCULAR HGB CONC 31.4 g/dl (32.0-36.5); MEAN CORPUSCULAR VOLUME 82.1 fl (80.0-96.0); MONO # 1.2 10^3/uL (0.0-0.8); MONO % 11.5 % (0.0-5.0); NEUTROPHILS # 6.9 10^3/uL (1.5-8.5); NEUTROPHILS % 64.7 % (36.0-66.0); PLATELET COUNT, AUTOMATED 215 10^3/uL (150-450); RED BLOOD COUNT 5.15 10^6/uL (4.00-5.40); WHITE BLOOD COUNT 10.6 10^3/uL (4.0-10.0)
[2019-07-29 04:35] VITALS: BP 95/57
--- NOTE | 2019-07-29 12:10 | REP ---
CHEST PA AND LATERAL: 07/29/2019. COMPARISON: 07/13/2016. CLINICAL HISTORY: Cough for weeks, worsening symptoms. FINDINGS: Two views show the lungs adequately inflated. There are patchy infiltrates or atelectasis in both bases without dense consolidation or pleural effusion. The heart, mediastinal and hilar contours are normal. The aorta and airway are intact. Bony thorax shows no focal lesion. There are surgical clips in the right upper quadrant from prior cholecystectomy. IMPRESSION: 1. Bibasilar patchy atelectasis or early infiltrates without effusion. No other significant finding. Electronically Signed by Hunter Naqvi MD 07/29/2019 05:08 P
--- NOTE | 2019-07-30 17:01 | ED PDOC ---
Post-Departure Follow-Up chargemaster analyst given order to contact pt to review cxr results and rx doxycyline Imani Chavis MD Jul 30, 2019 17:01
== END 2019-07-29 04:37 | disposition home or self-care (01) ==
LOC: M ED 01:16
DX: J06.9 Acute upper respiratory infection, unspecified (principal); B34.9 Viral infection, unspecified; R91.8 Other nonspecific abnormal finding of lung field; Z79.1 Long term (current) use of non-steroidal anti-inflammatories (NSAID); Z79.811 Long term (current) use of aromatase inhibitors; Z79.891 Long term (current) use of opiate analgesic; Z79.899 Other long term (current) drug therapy

== ENCOUNTER → 2019-10-04 | Outpatient (REF) | payer OTHER, MEDICAID ==
[~2019-10-04] MED LIST changes: +BENZ-18; +IPRA6SP
== END ==
LOC: M LAB REF 12:07
PROVIDERS: ATTEND Physician Assistant
DX: E55.9 Vitamin D deficiency, unspecified (principal)

== ENCOUNTER → 2019-10-10 | Outpatient (REF) | payer OTHER, MEDICAID | LOC: M LAB REF 13:07 | PROVIDERS: ATTEND Physician Assistant | DX: J02.9 Acute pharyngitis, unspecified (principal) ==

== ENCOUNTER 2020-01-15 00:18 | Emergency (ER) | payer MEDICAID, OTHER ==
[~2020-01-15] VITALS: Ht 162.6 cm; Wt 140.8 kg
[2020-01-15] MEDS ORDERED: hydrOXYzine 50 MG TAB PO ONE (00:45)
[2020-01-15 00:47] LABS: HEMATOCRIT 41.7 % (36.0-47.0); HEMOGLOBIN 13.4 g/dl (12.0-15.5); MEAN CORPUSCULAR HEMOGLOBIN 26.4 pg (27.0-33.0); MEAN CORPUSCULAR HGB CONC 32.1 g/dl (32.0-36.5); MEAN CORPUSCULAR VOLUME 82.1 fl (80.0-96.0); PLATELET COUNT, AUTOMATED 260 10^3/uL (150-450); RED BLOOD COUNT 5.08 10^6/uL (4.00-5.40)
[2020-01-15 01:18] LABS: AMPHETAMINES LEVEL URINE NEGATIVE (NEGATIVE); BARBITURATES URINE NEGATIVE (NEGATIVE); BENZODIAZEPINES URINE NEGATIVE (NEGATIVE); CANNABINOIDS URINE NEGATIVE (NEGATIVE); COCAINE METABOLITE URINE NEGATIVE (NEGATIVE); METHADONE URINE NEGATIVE (NEGATIVE); OPIATES URINE NEGATIVE (NEGATIVE); PHENCYCLIDINE URINE NEGATIVE (NEGATIVE)
[2020-01-15 01:52] LABS: ACETAMINOPHEN LEVEL < 2.0 UG/ML (10.0-30.0); ALBUMIN 3.7 GM/DL (3.2-5.2); ALT/SGPT 29 U/L (12-78); BILIRUBIN,DIRECT 0.1 MG/DL (0.0-0.2); BILIRUBIN,TOTAL 0.3 MG/DL (0.2-1.0); BLOOD UREA NITROGEN 19 MG/DL (7-18); CALCIUM LEVEL 8.7 MG/DL (8.5-10.1); CARBON DIOXIDE LEVEL 27 MEQ/L (21-32); CHLORIDE LEVEL 105 MEQ/L (98-107); ETHYL ALCOHOL (ETHANOL) < 0.003 % (0.000-0.010); GLOMERULAR FILTRATION RATE > 60.0 (>60); GLUCOSE, FASTING 142 MG/DL (70-100); POTASSIUM SERUM 4.5 MEQ/L (3.5-5.1); SALICYLATE LEVEL < 1.7 MG/DL (5.0-30.0); SODIUM LEVEL 137 MEQ/L (136-145); TOTAL PROTEIN 8.1 GM/DL (6.4-8.2); VALPROIC ACID (DEPAKOTE) < 3.0 UG/ML (50.0-100.0)
[2020-01-15 05:01] VITALS: BP 148/70
== END 2020-01-15 05:20 | disposition home or self-care (01) ==
LOC: M ED 00:18
DX: F33.9 Major depressive disorder, recurrent, unspecified (principal); F41.9 Anxiety disorder, unspecified; Z79.899 Other long term (current) drug therapy
CPT/HCPCS: 36415; 80048; 80076; 80164; 80307; 84443; 85027; 99284; G0480

== ENCOUNTER → 2020-01-17 | Outpatient (REF) | payer OTHER, MEDICAID ==
[2020-01-17 20:01] LABS: BASO # 0.1 10^3/uL (0.0-0.2); BASO % 0.5 % (0.0-1.0); EOS # 0.1 10^3/uL (0.0-0.5); EOS % 1.3 % (0.0-3.0); HEMATOCRIT 42.9 % (36.0-47.0); HEMOGLOBIN 13.9 g/dl (12.0-15.5); LYMPH # 2.1 10^3/uL (1.5-5.0); LYMPH % 22.8 % (24.0-44.0); MEAN CORPUSCULAR HEMOGLOBIN 27.4 pg (27.0-33.0); MEAN CORPUSCULAR HGB CONC 32.4 g/dl (32.0-36.5); MEAN CORPUSCULAR VOLUME 84.4 fl (80.0-96.0); MONO # 0.7 10^3/uL (0.0-0.8); MONO % 7.8 % (0.0-5.0); NEUTROPHILS # 6.2 10^3/uL (1.5-8.5); NEUTROPHILS % 67.2 % (36.0-66.0); PLATELET COUNT, AUTOMATED 257 10^3/uL (150-450); RED BLOOD COUNT 5.08 10^6/uL (4.00-5.40); WHITE BLOOD COUNT 9.2 10^3/uL (4.0-10.0)
[2020-01-17 20:13] LABS: ALBUMIN 3.4 GM/DL (3.2-5.2); ALT/SGPT 43 U/L (12-78); BILIRUBIN,TOTAL 0.5 MG/DL (0.2-1.0); BLOOD UREA NITROGEN 15 MG/DL (7-18); CALCIUM LEVEL 8.7 MG/DL (8.5-10.1); CARBON DIOXIDE LEVEL 28 MEQ/L (21-32); CHLORIDE LEVEL 103 MEQ/L (98-107); CHOLESTEROL LEVEL 185 MG/DL (<200); CHOLESTEROL RISK RATIO 4.204 (<5); CREATININE FOR GFR 0.59 MG/DL (0.55-1.30); FREE T4 0.98 NG/DL (0.76-1.46); GLOMERULAR FILTRATION RATE > 60.0 (>60); GLUCOSE, FASTING 122 MG/DL (70-100); HDL CHOLESTEROL 44 MG/DL (>40); LDL CHOLESTEROL 111 MG/DL (<100); NON-HDL-C 141 MG/DL; POTASSIUM SERUM 4.3 MEQ/L (3.5-5.1); SODIUM LEVEL 139 MEQ/L (136-145); TOTAL 25(OH) VITAMIN D 31.8 NG/ML (30.0-100.0); TOTAL PROTEIN 7.7 GM/DL (6.4-8.2); TRIGLYCERIDES LEVEL 149 MG/DL (<150)
[2020-01-17 21:27] LABS: HEMOGLOBIN A1c 6.2 %
== END ==
LOC: M LAB REF 17:24
PROVIDERS: ATTEND Nurse Practitioner Family
DX: Z00.01 Encounter for general adult medical examination with abnormal findings (principal); M62.838 Other muscle spasm; Z13.9 Encounter for screening, unspecified; M54.5 Low back pain; R73.01 Impaired fasting glucose; G43.709 Chronic migraine without aura, not intractable, without status migrainosus; M54.2 Cervicalgia; G43.909 Migraine, unspecified, not intractable, without status migrainosus; E55.9 Vitamin D deficiency, unspecified; E66.9 Obesity, unspecified

== ENCOUNTER → 2020-02-07 | Outpatient (CLI) | payer OTHER ==
[~2020-02-07] MED LIST changes: +METHACHOLINE KIT (J7674) INH ONE
--- NOTE | 2020-02-07 14:06 | PFTRPT ---
Height: 64.00 Inches Weight: 312.00 Lbs BSA: 2.36 Diagnosis: R05 DATE OF STUDY: 02/07/2020 ORDERED BY: Zeina Beltran INTERPRETATION: Study of excellent technical quality. Under protocol, methacholine was administered. At a dose of 2.5 mg (13.875 CDUs), a 20% decline in the FEV1 was noted. PC of 2.08 is significant. Flow rates did return to baseline post bronchodilator administration. IMPRESSION: Positive methacholine challenge study. MTDD
--- NOTE | 2020-02-07 15:40 | REP ---
REASON: Dyspnea. FINDINGS: The superior mediastinal structures are midline. The cardiac silhouette is unremarkable in size, shape, and position. The diaphragmatic surfaces of the lungs are regular, and the costophrenic angles are clear. The pulmonary ardon are clear. The imaged osseous structures are intact. IMPRESSION: There is no acute cardiopulmonary disease. Electronically Signed by See Mes[place] DO 02/07/2020 05:05 P
== END ==
LOC: M CARPUL 12:36
PROVIDERS: ATTEND Nurse Practitioner Family
DX: R05 Cough (principal); R06.00 Dyspnea, unspecified
CPT/HCPCS: 71046; 94070; 95070; J7674

== ENCOUNTER → 2020-05-06 | Outpatient (REF) | payer OTHER, MEDICAID ==
[~2020-05-06] MED LIST changes: +ALBU8.5H INH; +ARNU1INH INH; +GUAN1TAB17 PO; -METHACHOLINE KIT (J7674) INH ONE; +MONT10TA4 PO; +ONDA4TAB6 PO
[2020-05-06 12:52] LABS: BASO % 0.3 % (0.0-1.0); EOS # 0.2 10^3/uL (0.0-0.5); EOS % 2.2 % (0.0-3.0); HEMATOCRIT 42.9 % (36.0-47.0); HEMOGLOBIN 13.6 g/dl (12.0-15.5); LYMPH # 1.7 10^3/uL (1.5-5.0); LYMPH % 23.8 % (24.0-44.0); MEAN CORPUSCULAR HEMOGLOBIN 26.1 pg (27.0-33.0); MEAN CORPUSCULAR HGB CONC 31.7 g/dl (32.0-36.5); MEAN CORPUSCULAR VOLUME 82.2 fl (80.0-96.0); MONO # 0.5 10^3/uL (0.0-0.8); MONO % 6.8 % (0.0-5.0); NEUTROPHILS # 4.8 10^3/uL (1.5-8.5); NEUTROPHILS % 66.5 % (36.0-66.0); PLATELET COUNT, AUTOMATED 270 10^3/uL (150-450); RED BLOOD COUNT 5.22 10^6/uL (4.00-5.40); WHITE BLOOD COUNT 7.2 10^3/uL (4.0-10.0)
[2020-05-06 13:01] LABS: ALBUMIN 3.4 GM/DL (3.2-5.2); ALT/SGPT 33 U/L (12-78); BILIRUBIN,TOTAL 0.3 MG/DL (0.2-1.0); BLOOD UREA NITROGEN 11 MG/DL (7-18); CARBON DIOXIDE LEVEL 29 MEQ/L (21-32); CHLORIDE LEVEL 102 MEQ/L (98-107); CHOLESTEROL LEVEL 166 MG/DL (<200); CHOLESTEROL RISK RATIO 4.611 (<5); CREATININE FOR GFR 0.67 MG/DL (0.55-1.30); GLOMERULAR FILTRATION RATE > 60.0 (>60); GLUCOSE, FASTING 154 MG/DL (70-100); HDL CHOLESTEROL 36 MG/DL (>40); LDL CHOLESTEROL 87 MG/DL (<100); NON-HDL-C 130 MG/DL; POTASSIUM SERUM 4.5 MEQ/L (3.5-5.1); SODIUM LEVEL 137 MEQ/L (136-145); TOTAL PROTEIN 7.3 GM/DL (6.4-8.2); TRIGLYCERIDES LEVEL 214 MG/DL (<150)
[2020-05-06 13:07] LABS: HEMOGLOBIN A1c 6.8 %
== END ==
LOC: M LAB REF 12:26
PROVIDERS: ATTEND Nurse Practitioner Family
DX: E78.5 Hyperlipidemia, unspecified (principal); R73.03 Prediabetes; Z13.9 Encounter for screening, unspecified; M54.5 Low back pain; E66.9 Obesity, unspecified

== ENCOUNTER 2020-06-29 12:40 | Emergency (ER) | payer MEDICAID, OTHER ==
[~2020-06-29] VITALS: Ht 162.6 cm; Wt 146.5 kg
[~2020-06-29 12:40] MED LIST changes: -ALBU8.5H INH; -ARNU1INH INH; -GUAN1TAB17 PO; -MONT10TA4 PO; -ONDA4TAB6 PO
[2020-06-29] MEDS ORDERED: METOCLOPRAMIDE INJ 10MG/2ML VIAL (J2765 PER 1) IV ONE (13:15)
[2020-06-29] MEDS ORDERED: NS 1,000 ML IV ONE (13:15)
[2020-06-29] MEDS ORDERED: KETOROLAC 30 MG/ML 1ML VIAL IV ONE (13:15)
[2020-06-29] MEDS ORDERED: ARNU1INH INH (13:20)
[2020-06-29] MEDS ORDERED: ALBU8.5H INH (13:20)
[2020-06-29] MEDS ORDERED: GUAN1TAB17 PO (13:20)
[2020-06-29] MEDS ORDERED: TIZA4TAB4 PO (13:20)
[2020-06-29] MEDS ORDERED: MONT10TA4 PO (13:20)
[2020-06-29] MEDS ORDERED: ONDA4TAB6 PO (13:20)
[2020-06-29 14:15] VITALS: BP 160/82
== END 2020-06-29 14:25 | disposition home or self-care (01) ==
LOC: M ED 12:40
DX: G43.009 Migraine without aura, not intractable, without status migrainosus (principal); E11.9 Type 2 diabetes mellitus without complications; M54.9 Dorsalgia, unspecified; F90.9 Attention-deficit hyperactivity disorder, unspecified type; F41.9 Anxiety disorder, unspecified; F32.9 Major depressive disorder, single episode, unspecified; Z79.899 Other long term (current) drug therapy; Z79.51 Long term (current) use of inhaled steroids
CPT/HCPCS: 96374; 96375; 99284; J1885; J2765

== ENCOUNTER → 2020-08-12 | Outpatient (REF) | payer OTHER, MEDICAID ==
[~2020-08-12] MED LIST changes: +ALBU8.5H INH; +ARNU1INH INH; +GUAN1TAB17 PO; +MONT5TAB2 PO; +ONDA4TAB6 PO
== END ==
LOC: M LAB REF 16:20
PROVIDERS: ATTEND Nurse Practitioner Family
DX: E78.5 Hyperlipidemia, unspecified (principal); F41.8 Other specified anxiety disorders; R73.03 Prediabetes; Z13.9 Encounter for screening, unspecified; G43.909 Migraine, unspecified, not intractable, without status migrainosus; E66.9 Obesity, unspecified

== ENCOUNTER → 2020-09-25 | Outpatient (REF) | payer OTHER, MEDICAID ==
[2020-09-25 13:24] LABS: APPEARANCE, URINE HAZY (CLEAR); BACTERIA, URINE AUTO NEGATIVE (NEGATIVE); BILIRUBIN, URINE AUTO NEGATIVE (NEGATIVE); BLOOD, URINE BLOOD NEGATIVE (NEGATIVE); COLOR, URINE YELLOW (YELLOW); GLUCOSE, URINE (UA) AUTO NEGATIVE (NEGATIVE); KETONE, URINE AUTO 1+ mg/dL (NEGATIVE); LEUKOCYTE ESTERASE, URINE AUTO NEGATIVE (NEGATIVE); MUCUS, URINE SMALL (NEGATIVE); NITRITE, URINE AUTO NEGATIVE (NEGATIVE); PROTEIN, URINE AUTO NEGATIVE (NEGATIVE); RBC, URINE AUTO 2 /HPF (0-3); SPECIFIC GRAVITY URINE AUTO 1.021 (1.002-1.035); SQUAMOUS EPITHELIAL CELL UR AU 10 /HPF (0-6); UROBILINOGEN, URINE AUTO 0.2 mg/dL (0.0-2.0); WBC, URINE AUTO 6 /HPF (0-3)
[2020-09-25 13:27] LABS: BASO % 0.4 % (0.0-1.0); EOS # 0.3 10^3/uL (0.0-0.5); EOS % 3.6 % (0.0-3.0); HEMATOCRIT 41.6 % (36.0-47.0); HEMOGLOBIN 12.7 g/dl (12.0-15.5); LYMPH # 2.7 10^3/uL (1.5-5.0); LYMPH % 39.3 % (24.0-44.0); MEAN CORPUSCULAR HEMOGLOBIN 25.2 pg (27.0-33.0); MEAN CORPUSCULAR HGB CONC 30.5 g/dl (32.0-36.5); MEAN CORPUSCULAR VOLUME 82.5 fl (80.0-96.0); MONO # 0.6 10^3/uL (0.0-0.8); MONO % 8.5 % (0.0-5.0); NEUTROPHILS # 3.3 10^3/uL (1.5-8.5); NEUTROPHILS % 47.5 % (36.0-66.0); PLATELET COUNT, AUTOMATED 234 10^3/uL (150-450); RED BLOOD COUNT 5.04 10^6/uL (4.00-5.40)
[2020-09-25 14:04] LABS: ALBUMIN 3.6 GM/DL (3.2-5.2); ALT/SGPT 30 U/L (12-78); BILIRUBIN,TOTAL 0.3 MG/DL (0.2-1.0); BLOOD UREA NITROGEN 15 MG/DL (7-18); CALCIUM LEVEL 9.3 MG/DL (8.5-10.1); CARBON DIOXIDE LEVEL 28 MEQ/L (21-32); CHLORIDE LEVEL 100 MEQ/L (98-107); CHOLESTEROL LEVEL 206 MG/DL (<200); CHOLESTEROL RISK RATIO 5.885 (<5); CREATININE FOR GFR 0.68 MG/DL (0.55-1.30); FREE T4 0.99 NG/DL (0.76-1.46); GLOMERULAR FILTRATION RATE > 60.0 (>60); GLUCOSE, FASTING 175 MG/DL (70-100); HDL CHOLESTEROL 35 MG/DL (>40); LDL CHOLESTEROL 106 MG/DL (<100); NON-HDL-C 171 MG/DL; POTASSIUM SERUM 4.6 MEQ/L (3.5-5.1); SODIUM LEVEL 136 MEQ/L (136-145); TOTAL 25(OH) VITAMIN D 23.2 NG/ML (30.0-100.0); TOTAL PROTEIN 7.2 GM/DL (6.4-8.2); TRIGLYCERIDES LEVEL 325 MG/DL (<150)
[2020-09-25 14:26] LABS: HEMOGLOBIN A1c 7.7 %
== END ==
LOC: M LAB REF 12:20
PROVIDERS: ATTEND Nurse Practitioner Family
DX: E78.5 Hyperlipidemia, unspecified (principal); F41.8 Other specified anxiety disorders; R73.03 Prediabetes; Z13.9 Encounter for screening, unspecified; G43.909 Migraine, unspecified, not intractable, without status migrainosus; E66.9 Obesity, unspecified

== ENCOUNTER → 2021-01-01 | Outpatient (REF) ==
[~2021-01-01] MED LIST changes: +MONT10TA10 PO; -MONT5TAB2 PO
--- NOTE | 2021-01-01 14:20 | REPPI ---
INDICATION: DISABILITY DIAGNOSIS DETERMINATION COMPARISON: None. TECHNIQUE: AP, lateral, coned-down views of the lumbar spine. FINDINGS: Three views of the lumbosacral spine demonstrate satisfactory alignment and lordosis without acute fracture / compression injury or subluxation. No significant degenerative changes are appreciated. IMPRESSION: 1. No acute fracture / compression injury or subluxation. 2. Age-appropriate examination. <Electronically signed by Odin Flaherty > 01/01/21 2132
== END ==
LOC: M PLAIMG 09:43
PROVIDERS: ATTEND Internal Medicine
DX: Z00.00 Encounter for general adult medical examination without abnormal findings (principal)

== ENCOUNTER 2021-06-07 06:09 | Emergency (ER) | payer MEDICAID, OTHER ==
[~2021-06-07] VITALS: Ht 162.6 cm; Wt 145.4 kg
--- OUTSIDE RECORDS SUMMARY | 2021-06-07 06:14 | CCD ---
Author Organization Unknown Address [address] [place] [address] Phone [phone] Care Team Providers Care It Security Specialist Name Role Phone [facility] 2 [phone] [facility] 2 [phone] Allergies Code Code System Name Reaction Severity Status Onset NKDA Notes: SEASONAL Medications Name Status Start Date Stop Date albuterol sulfate 2.5 mg/3 mL (0.083 %) solution for nebulization INHALE contents of ONE vial via NEBULIZER EVERY 4 TO 6 HOURS NEEDED Active Not available albuterol sulfate HFA 90 mcg/actuation a erosol inhaler INHALE TWO PUFFS BY MOUTH EVERY FOUR HOURS NEEDED FOR WHEEZING OR SHORTNESS OF BREATH Active Not available Arnuity Ellipta 100 mcg/actuation powder for inhalation Active Not available atorvastatin 20 mg tablet Active Not av ailable azithromycin 250 mg tablet Active Not a vailable benzonatate 100 mg capsule Active Not a vailable Daily Multiple For Women Active Not osbaldo ilable divalproex 500 mg tablet,delayed release Active Not available doxycycline monohydrate 100 mg capsule TAKE ONE CAPSULE BY MOUTH TWICE DAILY FOR 10 DAYS Completed 10/08/2020 ergocalciferol (vitamin D2) 1,250 mcg (50,000 unit) capsule Acti ve Not available fluticasone 113 mcg-salmeterol 14 mcg/actuation breath activated powdr Active Not available fluticasone propionate 50 mcg/actuation nasal spray,suspension A ctive Not available guanfacine ER 2 mg tablet,extended release 24 hr Active Not available hydroxyzine HCl 10 mg tablet Active Not available ipratropium bromide 42 mcg (0.06 %) nasa l spray USE TWO SPRAYS IN EACH NOSTRIL ONCE DAILY Active 01/13/2021 Not available metformin ER 1,000 mg tablet,extended re lease 24hr Take 1 tablet every day by oral route. Active Not available metformin ER 500 mg tablet,extended release 24 hr Active Not available montelukast 10 mg tablet Active Not osbaldo ilable naproxen 500 mg tablet Active Not avail able ondansetron 4 mg disintegrating tablet DISSOLVE ONE TABLET UNDER THE TONGUE TWICE DAILY FOR NAUSEA AND vomiting, MAX DAILY DOSE TWO TABLETS Active Not available prednisone 10 mg tablet TAKE THREE TABLETS BY MOUTH ONCE DAILY WITH FOOD Completed 10/08/2020 sertraline 100 mg tablet Active Not osbaldo ilable sumatriptan 100 mg tablet TAKE ONE-HALF TO ONE TABLET BY MOUTH AT ONSET of HEADACHE, MAY REPEAT ONCE AFTER TWO HOURS DIRECTED Active Not availabl e tizanidine 4 mg tablet TAKE ONE-HALF OR ONE TABLET BY MOUTH THREE TIMES DAILY NEEDED FOR neck AND back pain, MAX DAILY DOSE THREE TABLETS Active Not available Vitamin D3 50 mcg (2,000 unit) capsule TAKE ONE CAPSULE BY MOUTH ONCE DAILY Active No t available Problems Name Status Onset Date Source General Finding of Observation of Patient Active 2012 History Vitamin D Deficiency Active 03/21/2013 History Mental Disorder Active 05/16/2013 History Migraine Active 11/23/2013 History Generalized Anxiety Disorder Active 01/14/2016 His tory Depressive Disorder Active 01/14/[address] Concept Active 01/14/2016 History Finding of Neck Region Active 06/04/2016 History Furuncle of Left Upper Limb Active 10/19/2016 Hist ory Hidradenitis Suppurativa Active 09/15/2017 History Plantar Fascial Fibromatosis Active 09/21/2017 His tory Tingling of Skin Active 10/11/2017 History Body Mass Index 30+ - Obesity Active 10/26/2017 Hi story Finding of Mantoux Test Active 10/26/2017 History Chronic Migraine without Aura Active 01/31/2018 Hi story Low Back Pain Active 07/12/2018 History Exercise Induced Bronchospasm Active 08/03/2019 Hi story Clinical Finding Active 10/04/2019 History Disability Evaluation Procedure Active 10/10/2019 History Spasm Active 12/14/2019 History Muscle Finding Active 01/03/2020 History Procedure by Method Active 01/03/2020 History Hyperlipidemia Active 01/23/2020 History Prediabetes Active 01/23/2020 History Patient Asked to Attend Active 01/23/2020 History Emotional State Finding Active 01/23/2020 History Asthma Active 02/29/2020 History Procedures Date Name Performed by 12/11/2014 Bilateral Tubal Ligation Information not available 12/11/2014 Section Information not avai lable 07/31/2011 Section Information not avai lable Dilation and Curettage Notes: X 2 Information not available Cholecystectomy Information not avai lable Notes: Abscess removed from right arm Results Lab Results Date Name Specimen Result Interpretation Description Value Range Status Address 02/10/2021 SARS CoV 2 RdRp Gene, QL Probe, Respiratory Spec imen Nasopharyngeal Normal Sars-cov-2 negative negative Final [facility]: [address] [facility] 01/06/2021 Lipid Panel, Blood Blood venous Cholesterol , Total 169 mg/dL <200 mg/dL Final [facility]: [address] [facility] Blood venous Low HDL Cholesterol 39 mg/dL > or = 50 mg/dL Final [facility]: [address] [facility] Blood venous High Triglycerides 193 mg/dL <150 mg/dL Final [facility]: [address] [facility] Blood venous LDL-cholesterol 99 mg/dL (santos c) <100 mg/dL (calc) Final [facility]: [address] [facility] Blood venous Chol/hdlc Ratio 4.3 calc <5.0 calc Final [facility]: [address] [facility] Blood venous High Non HDL Cholesterol 130 mg/dL (calc) <130 mg/dL (calc) Final [facility]: [address] [facility] 01/06/2021 TSH + Free T4, Serum Blood venous Normal Tsh 2.59 m IU/L Final [facility]: [address] [facility] Blood venous Normal T4, Free 1.3 NG/dL 0.8-1.8 NG /dL Final [facility]: [address] [facility] 01/06/2021 CMP, Serum or Plasma Blood venous High Glucose 174 mg/dL 65-99 mg/dL Final [facility]: [address] [facility] Blood venous Normal Urea Nitrogen (BUN) 14 mg/dL 7-25 mg/dL Final [facility]: [address] [facility] Blood venous Normal Creatinine 0.70 mg/dL 0.50-1. 10 mg/dL Final [facility]: [address] [facility] Blood venous Normal eGFR Non-afr. Urugu[place] 1 09 mL/min/1.73m2 > or = 60 mL/min/1.73m2 Final [facility]: [address] [facility] Blood venous Normal eGFR 12 6 mL/min/1.73m2 > or = 60 mL/min/1.73m2 [facility]: [address] [facility] Blood venous BUN/creatinine Ratio not applicable (calc) 6-22 (calc) [facility]: [address] [facility] Blood venous Low Sodium 134 mmol/L 135-146 mmo l/L [facility]: [address] [facility] Blood venous Normal Potassium 4.4 mmol/L 3.5-5.3 mmol/L [facility]: [address] [facility] Blood venous Normal Chloride 99 mmol/L 98-110 mmo l/L [facility]: [address] [facility] Blood venous Normal Carbon Dioxide 23 mmol/L 20-3 2 mmol/L [facility]: [address] [facility] Blood venous Normal Calcium 8.6 mg/dL 8.6-10.2 mg /dL [facility]: [address] [facility] Blood venous Normal Protein, Total 7.2 g/dL 6.1-8 .1 g/dL [facility]: [address] [facility] Blood venous Normal Albumin 4.1 g/dL 3.6-5.1 g/dL [facility]: [address] [facility] Blood venous Normal Globulin 3.1 g/dL (calc) 1.9- 3.7 g/dL (calc) [facility]: [address] [facility] Blood venous Normal Albumin/globulin Ratio 1 .3 (calc) 1.0-2.5 (calc) [facility]: [address] [facility] Blood venous Normal Bilirubin, Total 0.5 mg/dL 0. 2-1.2 mg/dL [facility]: [address] [facility] Blood venous Normal Alkaline Phosphatase 93 U/L 3 1-125 U/L [facility]: [address] [facility] Blood venous Normal Ast 29 U/L 10-30 U/L [facility] [address] [facility] Blood venous High Alt 35 U/L 6-29 U/L Final [facility] [address] [facility] 01/06/2021 Microalbumin, Urine Urine Normal Albumin, Urine 2.2 mg/dL see note: mg/dL Final [facility] [address] [facility] Urine Lito Final [facility]: [address] [facility] 01/06/2021 Urinalysis Complete, Reflex Culture Urine Normal Color yellow yellow Final [facility]: [address] [facility] Urine ABNORMAL Appearance cloudy clear Final Qu est [facility] [address] [facility] Urine Normal Specific [place] 1.025 1.001-1.[address] [facility] [address] [facility] Urine Normal Ph 6.0 5.0-8.[address] [facility] [address]: [address] [facility] Urine ABNORMAL Glucose trace negative Final [facility]: [address] [facility] Urine Normal Bilirubin negative negative Final [facility] [address] [place] [facility] Urine ABNORMAL Ketones 1+ negative Final [facility]: [address] [facility] Urine Normal Occult Blood negative negative Final [facility]: [address] [facility] Urine Normal Protein negative negative Final [facility]: [address] [facility] Urine Normal Nitrite negative negative Final [facility]: [address] [facility] Urine Normal Leukocyte Esterase negative negative Final [facility]: [address] [facility] Urine Normal Wbc 0-5 /hpf < or = 5 /hpf Final [facility]: [address] [place] [facility] Urine Normal Rbc 0-2 /hpf < or = 2 /hpf Final [facility]: [address] [facility] Urine ABNORMAL Squamous Epithelial Cells 6-10 /hp f < or = 5 /hpf Final [facility]: [address] [facility] Urine Normal Bacteria none seen /hpf none seen /h pf Final [facility]: [address] [facility] Urine ABNORMAL Calcium Oxalate Crystals many /hpf none or few /hpf Final [facility]: [address] [facility] Urine ABNORMAL Hyaline Cast 0-1 /lpf none seen /l pf Final [facility]: [address] [facility] Urine ABNORMAL Granular Cast 0-1 /lpf none seen / lpf Final [facility]: [address] [facility] 01/06/2021 Culture, Urine Reflexive Urine Culture [facility]: [address] [facility] 01/06/2021 CBC W/ Auto Diff Blood venous Normal White B lood Cell Count 5.7 thousand/uL 3.8-10.8 thousand/uL Final [facility]: [address] [facility] Blood venous High Red Blood Cell Count 5.2 0 million/uL 3.80-5.10 million/uL [facility]: [address] [facility] Blood venous Normal Hemoglobin 13.4 g/dL 11.7-15. 5 g/dL [facility]: [address] [facility] Blood venous Normal Hematocrit 42.5 % 35.0-45.0 % Final [facility]: [address] [facility] Blood venous Normal Mcv 81.7 fL 80.0-100.0 fL Fi nal [facility]: [address] [facility] Blood venous Low Mch 25.8 pg 27.0-33.0 pg Fin al [facility]: [address] [facility] Blood venous Low Mchc 31.5 g/dL 32.0-36.0 g/dL [facility]: [address] [facility] Blood venous Normal Rdw 14.0 % 11.0-15.0 % [facility]: [address] [facility] Blood venous Normal Platelet Count 261 thous and/uL 140-400 thousand/uL Final [facility]: [address] [facility] Blood venous Normal Mpv 10.7 fL 7.5-12.5 fL Jigna l [facility]: [address] [facility] Blood venous Normal Absolute Neutrophils 302 1 cells/uL 1758-6936 cells/uL [facility] gh: [address] [facility] Blood venous Normal Absolute Lymphocytes 201 2 cells/uL 850-3900 cells/uL Final [facility] gh: [address] [facility] Blood venous Normal Absolute Monocytes 479 c ells/uL 200-950 cells/uL [facility] [address] [facility] Blood venous Normal Absolute Eosinophils 160 cells/uL 15-500 cells/uL [facility]: [address] [facility] Blood venous Normal Absolute Basophils 29 ce lls/uL 0-200 cells/uL [facility]: [address] [facility] Blood venous Normal Neutrophils 53 % 38-80 % Fi [facility]: [address] [place] [facility] Blood venous Normal Lymphocytes 35.3 % 15-49 % Fi [facility]: [address] [facility] Blood venous Normal Monocytes 8.4 % 0-13 % [facility]: [address] [facility] Blood venous Normal Eosinophils 2.8 % 0-8 % Fin [facility]: [address] [facility] Blood venous Normal Basophils 0.5 % 0-2 % [facility]: [address] [facility] 01/06/2021 Vitamin D, 25-Hydroxy, Total, Serum Blood venous Low Vitamin D,25-Oh,total,ia 20 NG/mL 30-100 NG/mL [facility]: [address] [facility] 01/06/2021 HbA1C (Hemoglobin a1C), Blood Blood venous High Hemoglobin a1C 7.7 % of total HGB <5.7 % of total HGB [facility]: [address] [facility] 09/25/2020 Urinalysis, Dipstick Normal Appearance, Urine hazy clear [facility]: [address] [facility] Normal Color, Urine yellow yellow [facility]: [address] [facility] Normal pH,urine 5.0 units 5.0-9.0 units [facility]: [address] [facility] Normal Specific [place] Urine Auto 1.021 1 .002-1.035 [facility]: [address] [facility] Normal Protein, Urine Auto negative mg/dL n egative mg/dL [facility]: [address] [facility] Normal Glucose, Urine (UA) Auto negative mg /dL negative mg/dL [facility]: [address] [facility] High Ketone, Urine Auto 1+ mg/dL negative mg/dL [facility]: [address] [facility] Normal Urobilinogen, Urine Auto 0.2 mg/dL 0 .0-2.0 mg/dL [facility]: [address] [facility] Normal Bilirubin, Urine Auto negative negat alex [facility]: [address] [facility] Normal Nitrite, Urine Auto negative negativ e [facility]: [address] [facility] Normal Leukocyte Esterase, Urine Auto negat alex negative [facility]: [address] [facility] Normal Blood, Urine Blood negative negative [facility]: [address] [facility] High WBC, Urine Auto 6 /hpf 0-3 /hpf [facility]: [address] [facility] Normal RBC, Urine Auto 2 /hpf 0-3 /hpf [facility]: [address] [facility] Normal Bacteria, Urine Auto negative negati ve [facility]: [address] [facility] Normal Squamous Epithelial Cell Ur AU 10 /h pf 0-6 /hpf [facility]: [address] [facility] Normal Mucus, Urine small negative [facility]: [address] [facility] Normal Hyaline Cast, Urine Auto 0 /lpf 0-1 /lpf [facility]: [address] [facility] 09/25/2020 CBC W/ Auto Diff Blood venous Normal White Blood C ount 7.0 10 4.0-10.0 10 [facility]: 83 0 [facility] Blood venous Normal Red Blood Count 5.04 10 4.00- 5.40 10 [facility]: [address] [facility] Blood venous Normal Hemoglobin 12.7 g/dL 12.0-15. 5 g/dL [facility]: [address] [facility] Blood venous Normal Hematocrit 41.6 % 36.0-47.0 % [facility]: [address] [facility] Blood venous Normal Mean Corpuscular Volume 82.5 fL 80.0-96.0 fL [facility]: [address] [place] [address] Blood venous Low Mean Corpuscular Hemoglob in 25.2 pg 27.0-33.0 pg [facility]: [address] [place] [address] Blood venous Low Mean Corpuscular HGB Conc 30.5 g/dL 32.0-36.5 g/dL [facility]: [address] [place] [address] Blood venous High Red Cell Distribution Width 1 4.7 % 11.5-14.5 % [facility]: [address] [place] [address] Blood venous Normal Platelet Count, Automated 234 10 150-450 10 [facility]: [address] [place] [address] Blood venous Normal Neutrophils % 47.5 % 36.0-66. 0 % [facility]: [address] [place] [address] Blood venous Normal Lymph % 39.3 % 24.0-44.0 % [facility]: [address] [place] [address] Blood venous High [place] % 8.5 % 0.0-5.0 % [facility]: [address] [place] [address] Blood venous High Eos % 3.6 % 0.0-3.0 % [facility]: [address] [place] [address] Blood venous Normal Baso % 0.4 % 0.0-1.0 % [facility]: [address] [place] [address] Blood venous Normal Immature Granulocyte % 0.7 % 0-3.0 % [facility]: [address] [place] [address] Blood venous Normal Nucleated Red Blood Cell % 0. 0 % 0-0 % [facility]: [address] [place] [address] Blood venous Normal Neutrophils # 3.3 10 1.5-8.5 10 [facility]: [address] [place] [address] Blood venous Normal Lymph # 2.7 10 1.5-5.0 10 [facility]: [address] [place] [address] Blood venous Normal [place] # 0.6 10 0.0-0.8 10 [facility]: [address] [place] [address] Blood venous Normal Eos # 0.3 10 0.0-0.5 10 [facility]: [address] [place] [address] Blood venous Normal Baso # 0.0 10 0.0-0.2 10 [facility]: [address] [place] [address] 09/25/2020 CMP, Serum or Plasma Blood venous High Glu cose, Fasting 175 mg/dL 70-100 mg/dL [facility] nter: [address] [place] [address] Blood venous Normal Blood Urea Nitrogen 15 mg/dL 7-18 mg/dL [facility]: [address] [place] [address] Blood venous Normal Creatinine for GFR 0.68 mg/dL 0.55-1.30 mg/dL [facility]: [address] [place] [address] Blood venous Normal Glomerular Filtration Rate > 60.0 >60 [facility]: [address] [place] [address] Blood venous Normal Sodium Level 136 mEq/L 136-14 5 mEq/L [facility]: [address] [place] [address] Blood venous Normal Potassium Serum 4.6 mEq/L 3.5 -5.1 mEq/L [facility]: [address] [place] [address] Blood venous Normal Chloride Level 100 mEq/L 98-1 07 mEq/L [facility]: [address] [place] [address] Blood venous Normal Carbon Dioxide Level 28 mEq/L 21-32 mEq/L [facility]: [address] [place] [address] Blood venous Normal Anion Gap 8 mEq/L 8-16 mEq/L [facility]: [address] [place] [address] Blood venous Normal Calcium Level 9.3 mg/dL 8.5-1 0.1 mg/dL [facility]: 0 [facility] Blood venous Normal AST/SGOT 26 U/L 7-37 U/L [facility]: [address] [place] [address] Blood venous Normal ALT/SGPT 30 U/L 12-78 U/L [facility]: [address] [place] [address] Blood venous Normal Alkaline Phosphatase 100 U/L 45-117 U/L [facility]: [address] [place] [address] Blood venous Normal Bilirubin,total 0.3 mg/dL 0.2 -1.0 mg/dL [facility]: [address] [place] [address] Blood venous Normal Total Protein 7.2 gm/dL 6.4-8 .2 gm/dL [facility]: [address] [place] [address] Blood venous Normal Albumin 3.6 gm/dL 3.2-5.2 gm/ dL [facility]: [address] [place] [address] Blood venous Low Albumin/globulin Ratio 1.0 1.2-2.2 [facility]: [address] [place] [address] 09/25/2020 Lipid Panel, Blood Blood venous High Trigl ycerides Level 325 mg/dL <150 mg/dL [facility] nter: [address] [place] [address] Blood venous High Cholesterol Level 206 mg/dL < 200 mg/dL [facility]: [address] [place] [address] Blood venous Low HDL Cholesterol 35 mg/dL >40 mg/dL [facility]: [address] [place] [address] Blood venous High LDL Cholesterol 106 mg/dL <10 0 mg/dL [facility]: [address] [place] [address] Blood venous Normal Non-hdl-c 171 mg/dL [facility]: [address] [place] [address] Blood venous High Cholesterol Risk Ratio 5.885 <5 [facility]: [address] [place] [address] 09/25/2020 TSH + Free T4, Serum Blood venous High Thyroid Stimulating Hormone 5.730 uIU/mL 0.358-3.740 uIU/mL [facility]: [address] [place] [address] Blood venous Normal Free T4 0.99 NG/dL 0.76-1.46 NG/dL [facility]: [address] [place] [address] 09/25/2020 Vitamin D, 25-Hydroxy, Total, Serum Blood venous Low Total 25(Oh) Vitamin D 23.2 NG/mL 30.0-100.0 NG/mL Final [facility]: [address] [place] [address] 09/25/2020 HbA1C (Hemoglobin a1C), Blood Blood venous Normal Hemoglobin a1C 7.7 % Final [facility]: 0 [facility] Blood venous High Estimated Average Glucose 174 mg/dL 60-110 mg/dL Final [facility]: [address] [place] [address] 09/25/2020 Culture, Urine URINE,CLEAN CATCH No observation recorded. [facility]: 0 [facility] Past Encounters 03/24/2021 Generalized Anxiety Disorder; Posttraumatic Stress Disorder Christen Whitten, [facility]: [address] [facility] [address] [address], Ph. 03/02/2021 Generalized Anxiety Disorder; Posttraumatic Stress Disorder Christen Whitten [facility]-R: [address] [facility] [address], [place] [address], Ph. 02/10/2021 Fatigue; [facility] Res[facility] Infection [facility] [address] [place] [address], Ph. 02/09/2021 Generalized Anxiety Disorder; Posttraumatic Stress Disorder Christen Whitten [facility]-R: [address] [facility], [facility] [address], [place] [address], Ph. 02/02/2021 Generalized Anxiety Disorder; Posttraumatic Stress Disorder Christen Whitten [facility]-R: [address] [facility] [address], [place] [address], Ph. 01/20/2021 SARS-CoV-2 Vaccination Luc Walker MD: [address] [place] [address], Ph. 01/13/2021 Patient Asked to Attend; Type II Diabetes Mellitus Uncontrolled; Chronic Low Back Pain; Mixed Hyperlipidemia; Vitamin D Deficiency; Body Mass Index 40+ - Severely Obese [facility]: [address] [place] [address], Ph. 01/06/2021 Generalized Anxiety Disorder; Posttraumatic Stress Disorder COLIN IrvingW-R: [address], [address], [place] [address], Ph. 01/06/2021 Type II Diabetes Mellitus Uncontrolled; Subclinical Hypothyroidism [facility]: [address] [place] [address], Ph. 12/22/2020 Generalized Anxiety Disorder; Posttraumatic Stress Disorder COLIN IrvingW[facility]: [address] , [facility] [address], [place] [address], Ph. 12/11/2020 Generalized Anxiety Disorder; Posttraumatic Stress Disorder COLIN [facility]: [address] [place] [address], Ph. 12/03/2020 Generalized Anxiety Disorder; Posttraumatic Stress Disorder Christen Whitten, [facility]: [address] [place] [address], Ph. 11/12/2020 Generalized Anxiety Disorder; Posttraumatic Stress Disorder Christen Whitten, [facility]: [address] [place] [address], Ph. 11/04/2020 Generalized Anxiety Disorder; Posttraumatic Stress Disorder; Severe Recurrent Major Depression Christen Whitten, [facility]: [address], [address], [place] [address], Ph. 10/20/2020 Generalized Anxiety Disorder; Posttraumatic Stress Disorder; Severe Recurrent Major Depression Christen Whitten, [facility]: [address], [address], [place] [address], Ph. 10/08/2020 Type II Diabetes Mellitus Uncontrolled; Patient Asked to Attend; Subclinical Hypothyroidism [facility]: [address] [place] [address], Ph. 10/08/2020 Generalized Anxiety Disorder; Posttraumatic Stress Disorder; Severe Recurrent Major Depression COLIN [facility]: [address] [place] [address], Ph. 09/25/2020 Prediabetes Luc Walker MD: [address] [place] [address], Ph. 09/23/2020 Generalized Anxiety Disorder; Posttraumatic Stress Disorder; Severe Recurrent Major Depression Christen Whitten [facility]: [address], [facility] [address] [address], Ph. 09/15/2020 Generalized Anxiety Disorder; Posttraumatic Stress Disorder; Moderate Recurrent Major Depression Christen Whitten [facility]: [address], [facility] [address] [address], Ph. 09/09/2020 Posttraumatic Stress Disorder; Moderate Recurrent Major Depression; Generalized Anxiety Disorder Christen Whitten [facility]: [address], [facility] [address], [place] [address], Ph. 09/02/2020 Generalized Anxiety Disorder; Severe Recurrent Major Depression; Posttraumatic Stress Disorder Christen Whitten [facility]: [address], [facility] [address], [place] [address], Ph. 08/12/2020 Generalized Anxiety Disorder; Posttraumatic Stress Disorder; Severe Recurrent Major Depression Christen Whitten [facility]: [address], [facility] [address], [place] [address], Ph. 08/12/2020 [facility]: [address] [place] [address], Ph. 08/04/2020 Generalized Anxiety Disorder; Posttraumatic Stress Disorder; Severe Recurrent Major Depression Christen Whitten, [facility]: [address] [facility], [facility] [address], [place] [address], Ph. 07/30/2020 Generalized Anxiety Disorder; Posttraumatic Stress Disorder; Severe Recurrent Major Depression Christen Whitten, [facility]: [address] , [place] [address], Ph. 07/07/2020 Generalized Anxiety Disorder; Posttraumatic Stress Disorder; Severe Recurrent Major Depression Christen Whitten, [facility]: [address], [place] [address], Ph. Social History Tobacco Smoking Status Former Smoker Vaccine List Vaccine Type COVID-19 vaccine, vector-nr, [id number], PF , 0.5 mL .5 mL Plan of Care Patient Instructions We have sent a prescription to your phar juan today. Please take medications as prescribed. Please report any major side effects. Please return to clinic or ER for worsening symptoms. Lab results reviewed and discussed with you today. Please continue medications as prescribed. Please try to maintain good nutrition, adequate rest, adequate physical activities and adequate intake of water daily. LDL trending up. will start Atorvastatin 20 mg daily at nights. Please continue healthy diet and physical activities. Please try to avoid processed foods. Reminders Provider Appointments None recorded. Lab None recorded. Referral None recorded. Procedures None recorded. Surgeries None recorded. Imaging None recorded. Vitals 02/10/2021 10:20AM SAME DAY 20 Height Weight BMI Blood Pressure 64 in 317 lbs 8 oz 54.5 kg/m2 112/78 mm[Hg] 01/13/2021 11:00AM ESTABLISHED [id number] Height Weight BMI Blood Pressure 64 in 322 lbs 4 oz 55.3 kg/m2 (1) 129/93 mm[ Hg] (2) 107/78 mm[Hg] 01/06/2021 09:40AM NURSE LAB COLLECTION Height 64 in 10/08/2020 01:00PM TELEHEALTH 20 Height 64 in 05/12/2020 Height Weight BMI Blood Pressure 64 in 321 lbs 12.8 oz 55.44 kg/m2 128/89 mm[H g] 02/29/2020 Height Weight BMI Blood Pressure 64 in 319 lbs 6.08 oz 55.02 kg/m2 110/78 mm[H g] 01/31/2020 Height Weight BMI Blood Pressure 64 in 312 lbs 2.08 oz 53.77 kg/m2 105/78 mm[H g] 01/23/2020 Height Weight BMI Blood Pressure 64 in 317 lbs 54.61 kg/m2 93/65 mm[Hg] 01/03/2020 Height Weight BMI Blood Pressure 64 in 310 lbs 4 oz 53.45 kg/m2 126/79 mm[Hg] 12/14/2019 Height Weight BMI Blood Pressure 64 in 302 lbs 2.08 oz 52.05 kg/m2 102/66 mm[H g] 10/10/2019 Height Weight BMI Blood Pressure 64 in 295 lbs 50.82 kg/m2 124/82 mm[Hg] 09/12/2019 Height Weight BMI Blood Pressure 64 in 292 lbs 50.30 kg/m2 104/73 mm[Hg] 08/03/2019 Height Weight BMI Blood Pressure 64 in 299 lbs 8 oz 51.59 kg/m2 128/88 mm[Hg] 07/23/2019 Height Weight BMI Blood Pressure 64 in 300 lbs 51.68 kg/m2 131/82 mm[Hg] 01/09/2019 Height Weight BMI Blood Pressure 64 in 306 lbs 2.08 oz 52.74 kg/m2 122/81 mm[H g]
--- OUTSIDE RECORDS SUMMARY | 2021-06-07 06:14 | CCD ---
Author Organization Unknown Address [address] [place] [address] Phone [phone] Care Team Providers Care Business Ethics Professor Name Role Phone [facility] 2 [phone] [facility] 2 [phone] Allergies Code Code System Name Reaction Severity [...] imen Nasopharyngeal Normal Sars-cov-2 negative negative Final [facility] Medical: 238 [facility] 01/06/2021 Lipid Panel, Blood Blood venous Cholesterol , Total 169 mg/dL <200 mg/dL Final [facility]: [address] [facility] Blood venous Low HDL Cholesterol 39 mg/dL > or = 50 mg/dL Final [facility]: [address] [facility] Blood venous High Triglycerides 193 mg/dL <150 mg/dL Final [facility]: [address] [facility] Blood venous LDL-cholesterol 99 mg/dL (santos c) <100 mg/dL (calc) Final [facility]: [address] [facility] Blood venous Chol/hdlc Ratio 4.3 calc <5.0 calc Final [facility]: [address] [facility] Blood venous High Non HDL Cholesterol 130 mg/dL (calc) <130 mg/dL (calc) Final [facility]: [address] [facility] 01/06/2021 TSH + Free T4, Serum Blood venous Normal Tsh 2.59 m IU/L Final [facility]: [address] [facility] Blood venous Normal T4, Free 1.3 NG/dL 0.8-1.8 NG /dL Final [facility]: [address] [facility] 01/06/2021 CMP, Serum or Plasma Blood venous High Glucose 174 mg/dL 65-99 mg/dL Final [facility]: [address] [facility] Blood venous Normal Urea Nitrogen (BUN) 14 mg/dL 7-25 mg/dL Final [facility]: [address] [facility] Blood venous Normal Creatinine 0.70 mg/dL 0.50-1. 10 mg/dL Final [facility]: [address] [facility] Blood venous Normal eGFR Non-afr. Bahamian 1 09 mL/min/1.73m2 > or = 60 mL/min/1.73m2 Final [facility]: [address] [facility] Blood venous Normal eGFR 12 6 mL/min/1.73m2 > or = 60 mL/min/1.73m2 [facility]: [address] [facility] Blood venous BUN/creatinine Ratio not applicable (calc) 6-22 (calc) [facility]: [address] [facility] Blood venous Low Sodium 134 mmol/L 135-146 mmo l/L [facility]: [address] [facility] Blood venous Normal Potassium 4.4 mmol/L 3.5-5.3 mmol/L [facility]: [address] [facility] Blood venous Normal Chloride 99 mmol/L 98-110 mmo l/L [facility]: [address] [facility] Blood venous Normal Carbon Dioxide 23 mmol/L 20-3 2 mmol/L [facility]: [address] [facility] Blood venous Normal Calcium 8.6 mg/dL 8.6-10.2 mg /dL [facility]: [address] [facility] Blood venous Normal Protein, Total 7.2 g/dL 6.1-8 .1 g/dL [facility]: [address] [facility] Blood venous Normal Albumin 4.1 g/dL 3.6-5.1 g/dL [facility]: [address] [facility] Blood venous Normal Globulin 3.1 g/dL (calc) 1.9- 3.7 g/dL (calc) [facility]: [address] [facility] Blood venous Normal Albumin/globulin Ratio 1 .3 (calc) 1.0-2.5 (calc) [facility]: [address] [facility] Blood venous Normal Bilirubin, Total 0.5 mg/dL 0. 2-1.2 mg/dL [facility]: [address] [facility] Blood venous Normal Alkaline Phosphatase 93 U/L 3 1-125 U/L [facility]: [address] [facility] Blood venous Normal Ast 29 U/L 10-30 U/L [facility]: [address] [facility] Blood venous High Alt 35 U/L 6-29 U/L Final [facility] [place]: [facility] 01/06/2021 Microalbumin, Urine Urine Normal Albumin, Urine 2.2 mg/dL see note: mg/dL Final [facility]: [facility] U[facility] Lito Final [facility] [place]: [address] [facility] 01/06/2021 Urinalysis Complete, Reflex Culture Urine Normal Color yellow yellow Final [facility]: [address] [facility] Urine ABNORMAL Appearance cloudy clear Final [facility] [place]: [facility] Urine Normal Specific [place] 1.025 1.001-1.035 Final [facility] [place]: [facility] Urine Normal Ph 6.0 5.0-8.0 Final [facility] [place]: [address] [facility] Urine ABNORMAL Glucose trace negative Final [facility]: [address] [facility] Urine Normal Bilirubin negative negative Final [facility] [place]: [address] [place] [facility] Urine ABNORMAL Ketones 1+ negative Final [facility]: [address] [facility] Urine Normal Occult Blood negative negative Final [facility] [place]: [address] [place] [facility] Urine Normal Protein negative negative Final [facility]: 8[address] [facility] Urine Normal Nitrite negative negative Final [facility]: [address] [facility] Urine Normal Leukocyte Esterase negative negative Final [facility] [place]: [address] [facility] Urine Normal Wbc 0-5 /hpf < or = 5 /hpf Final [facility] [place]: [address] [place] [facility] Urine Normal Rbc 0-2 /hpf < or = 2 /hpf Final [facility] [place]: [address] [facility] Urine ABNORMAL Squamous Epithelial Cells 6-10 /hp f < or = 5 /hpf Final [facility] [place]: [address] [facility] Urine Normal Bacteria none seen /hpf none seen /h pf Final [facility] [place]: [address] [facility] Urine ABNORMAL Calcium Oxalate Crystals many /hpf none or few /hpf Final [facility] [place]: [address] [facility] Urine ABNORMAL Hyaline Cast 0-1 /lpf none seen /l pf Final [facility]: [address] [facility] Urine ABNORMAL Granular Cast 0-1 /lpf none seen / lpf Final [facility]: [address] [facility] 01/06/2021 Culture, Urine Reflexive Urine Culture [facility]: [address] [facility] 01/06/2021 CBC W/ Auto Diff Blood venous Normal White B lood Cell Count 5.7 thousand/uL 3.8-10.8 thousand/uL Final [facility]: [address] [facility] Blood venous High Red Blood Cell Count 5.2 0 million/uL 3.80-5.10 million/uL [facility]: [address] [facility] Blood venous Normal Hemoglobin 13.4 g/dL 11.7-15. 5 g/dL [facility]: [address] [facility] Blood venous Normal Hematocrit 42.5 % 35.0-45.0 % Final [facility]: [address] [facility] Blood venous Normal Mcv 81.7 fL 80.0-100.0 fL Fi nal [facility]: 8[address] [facility] Blood venous Low Mch 25.8 pg 27.0-33.0 pg Fin al [facility]: [address] [facility] Blood venous Low Mchc 31.5 g/dL 32.0-36.0 g/dL [facility]: [address] [facility] Blood venous Normal Rdw 14.0 % 11.0-15.0 % [facility]: [address] [facility] Blood venous Normal Platelet Count 261 thous and/uL 140-400 thousand/uL Final [facility]: [address] [facility] Blood venous Normal Mpv 10.7 fL 7.5-12.5 fL Jigna l [facility]: [address] [facility] Blood venous Normal Absolute Neutrophils 302 1 cells/uL 0036-5855 cells/uL [facility] gh: 8[address] [facility] Blood venous Normal Absolute Lymphocytes 201 2 cells/uL 850-3900 cells/uL Final [facility] gh: 8[address] [facility] Blood venous Normal Absolute Monocytes 479 c ells/uL 200-950 cells/uL [facility]: [facility] Blood venous Normal Absolute Eosinophils 160 cells/uL 15-500 cells/uL [facility]: [address] [facility] Blood venous Normal Absolute Basophils 29 ce lls/uL 0-200 cells/uL [facility]: 875 [facility] Blood venous Normal Neutrophils 53 % 38-80 % [facility]: [address] [place] [facility] Blood venous Normal Lymphocytes 35.3 % 15-49 % [facility]: [address] [facility] Blood venous Normal Monocytes 8.4 % 0-13 % [facility]: [address] [facility] Blood venous Normal Eosinophils 2.8 % 0-8 % Fin [facility]: 8[address] [facility] Blood venous Normal Basophils 0.5 % 0-2 % [facility]: [address] [facility] 01/06/2021 Vitamin D, 25-Hydroxy, Total, Serum Blood venous Low Vitamin D,25-Oh,total,ia 20 NG/mL 30-100 NG/mL [facility]: 8[address] [facility] 01/06/2021 HbA1C (Hemoglobin a1C), Blood Blood venous High Hemoglobin a1C 7.7 % of total HGB <5.7 % of total HGB [facility]: [facility] 09/25/2020 Urinalysis, Dipstick Normal Appearance, Urine hazy clear [facility]: 8[address] [facility] Normal Color, Urine yellow yellow [facility]: [address] [facility] Normal pH,urine 5.0 units 5.0-9.0 units [facility]: 8[address] [facility] Normal Specific [place] Urine Auto 1.021 1 .002-1.035 [facility]: 8[address] [facility] Normal Protein, Urine Auto negative mg/dL n egative mg/dL [facility]: 8[address] [facility] Normal Glucose, Urine (UA) Auto negative mg /dL negative mg/dL [facility]: [address] [facility] High Ketone, Urine Auto 1+ mg/dL negative mg/dL [facility]: [address] [facility] Normal Urobilinogen, Urine Auto 0.2 mg/dL 0 .0-2.0 mg/dL [facility]: [address] [facility] Normal Bilirubin, Urine Auto negative negat alex [facility]: [address] [facility] Normal Nitrite, Urine Auto negative negativ e [facility]: [address] [facility] Normal Leukocyte Esterase, Urine Auto negat alex negative [facility]: [address] [facility] Normal Blood, Urine Blood negative negative [facility]: [address] [facility] High WBC, Urine Auto 6 /hpf 0-3 /hpf [facility]: [address] [facility] Normal RBC, Urine Auto 2 /hpf 0-3 /hpf [facility]: [address] [facility] Normal Bacteria, Urine Auto negative negati ve [facility]: [address] [facility] Normal Squamous Epithelial Cell Ur AU 10 /h pf 0-6 /hpf [facility]: [address] [facility] Normal Mucus, Urine small negative [facility]: [address] [facility] Normal Hyaline Cast, Urine Auto 0 /lpf 0-1 /lpf [facility]: [address] [facility] 09/25/2020 CBC W/ Auto Diff Blood venous Normal White Blood C ount 7.0 10 4.0-10.0 10 [facility]: 83 0 [facility] Blood venous Normal Red Blood Count 5.04 10 4.00- 5.40 10 [facility]: [address] [facility] Blood venous Normal Hemoglobin 12.7 g/dL 12.0-15. 5 g/dL [facility]: [address] [facility] Blood venous Normal Hematocrit 41.6 % 36.0-47.0 % [facility]: [address] [facility] Blood venous Normal Mean Corpuscular Volume 82.5 fL 80.0-96.0 fL [facility]: [address] [place] [address] Blood venous Low Mean Corpuscular Hemoglob in 25.2 pg 27.0-33.0 pg [facility]: [address] [place] [address] Blood venous Low Mean Corpuscular HGB Conc 30.5 g/dL 32.0-36.5 g/dL [facility]: [address] [place] [address] Blood venous High Red Cell Distribution Width 1 4.7 % 11.5-14.5 % [facility]: [address] [place] [address] Blood venous Normal Platelet Count, Automated 234 10 150-450 10 [facility]: [address] [place] [address] Blood venous Normal Neutrophils % 47.5 % 36.0-66. 0 % [facility]: [address] [place] [address] Blood venous Normal Lymph % 39.3 % 24.0-44.0 % [facility]: [address] [place] [address] Blood venous High Butler % 8.5 % 0.0-5.0 % [facility]: [address] [place] [address] Blood venous High Eos % 3.6 % 0.0-3.0 % [facility]: [address] [place] [address] Blood venous Normal Baso % 0.4 % 0.0-1.0 % [facility]: [address] [place] [address] Blood venous Normal Immature Granulocyte % 0.7 % 0-3.0 % [facility]: [address] [place] [address] Blood venous Normal Nucleated Red Blood Cell % 0. 0 % 0-0 % [facility]: [address] [place] [address] Blood venous Normal Neutrophils # 3.3 10 1.5-8.5 10 [facility]: [address] [place] [address] Blood venous Normal Lymph # 2.7 10 1.5-5.0 10 [facility]: [address] [place] [address] Blood venous Normal Butler # 0.6 10 0.0-0.8 10 [facility]: [address] [place] [address] Blood venous Normal Eos # 0.3 10 0.0-0.5 10 [facility]: [address] [place] [address] Blood venous Normal Baso # 0.0 10 0.0-0.2 10 [facility]: [address] [place] [address] 09/25/2020 CMP, Serum or Plasma Blood venous High Glu cose, Fasting 175 mg/dL 70-100 mg/dL [facility]: [address] [place] [address] Blood venous Normal Blood Urea Nitrogen 15 mg/dL 7-18 mg/dL [facility]: [address] [place] [address] Blood venous Normal Creatinine for GFR 0.68 mg/dL 0.55-1.30 mg/dL [facility]: [address] [place] [address] Blood venous Normal Glomerular Filtration Rate > 60.0 >60 [facility]: [address] [place] [address] Blood venous Normal Sodium Level 136 mEq/L 136-14 5 mEq/L [facility]: [address] [place] [address] Blood venous Normal Potassium Serum 4.6 mEq/L 3.5 -5.1 mEq/L [facility]: [address] [place] [address] Blood venous Normal Chloride Level 100 mEq/L 98-1 07 mEq/L [facility]: [address] [place] [address] Blood venous Normal Carbon Dioxide Level 28 mEq/L 21-32 mEq/L [facility]: [address] [place] [address] Blood venous Normal Anion Gap 8 mEq/L 8-16 mEq/L [facility]: [address] [place] [address] Blood venous Normal Calcium Level 9.3 mg/dL 8.5-1 0.1 mg/dL [facility]: 0 [facility] Blood venous Normal AST/SGOT 26 U/L 7-37 U/L [facility]: [address] [place] [address] Blood venous Normal ALT/SGPT 30 U/L 12-78 U/L [facility]: [address] [place] [address] Blood venous Normal Alkaline Phosphatase 100 U/L 45-117 U/L [facility]: [address] [place] [address] Blood venous Normal Bilirubin,total 0.3 mg/dL 0.2 -1.0 mg/dL [facility]: [address] [place] [address] Blood venous Normal Total Protein 7.2 gm/dL 6.4-8 .2 gm/dL [facility]: [address] [place] [address] Blood venous Normal Albumin 3.6 gm/dL 3.2-5.2 gm/ dL [facility]: [address] [place] [address] Blood venous Low Albumin/globulin Ratio 1.0 1.2-2.2 [facility]: [address] [place] [address] 09/25/2020 Lipid Panel, Blood Blood venous High Trigl ycerides Level 325 mg/dL <150 mg/dL [facility]: [address] [place] [address] Blood venous High Cholesterol Level 206 mg/dL < 200 mg/dL [facility]: [address] [place] [address] Blood venous Low HDL Cholesterol 35 mg/dL >40 mg/dL [facility]: [address] [place] [address] Blood venous High LDL Cholesterol 106 mg/dL <10 0 mg/dL [facility]: [address] [place] [address] Blood venous Normal Non-hdl-c 171 mg/dL [facility]: [address] [place] [address] Blood venous High Cholesterol Risk Ratio 5.885 <5 [facility]: [address] [place] [address] 09/25/2020 TSH + Free T4, Serum Blood venous High Thyroid Stimulating Hormone 5.730 uIU/mL 0.358-3.740 uIU/mL [facility]: [address] [place] [address] Blood venous Normal Free T4 0.99 NG/dL 0.76-1.46 NG/dL [facility]: [address] [place] [address] 09/25/2020 Vitamin D, 25-Hydroxy, Total, Serum Blood venous Low Total 25(Oh) Vitamin D 23.2 NG/mL 30.0-100.0 NG/mL Final [facility]: [address] [place] [address] 09/25/2020 HbA1C (Hemoglobin a1C), Blood Blood venous Normal Hemoglobin a1C 7.7 % Final [facility]: 0 [facility] Blood venous High Estimated Average Glucose 174 mg/dL 60-110 mg/dL Final [facility]: [address] [place] [address] 09/25/2020 Culture, Urine URINE,CLEAN CATCH No observation recorded. [facility]: 0 [facility] Past Encounters 05/22/2021 Generalized Anxiety Disorder Simin Chamberlain [facility]: [address] [place] [address], Ph. 03/24/2021 Generalized Anxiety Disorder; Posttraumatic Stress Disorder Christen Whitten, [employer]: [address] [facility] [address], [place] [address], Ph. 03/02/2021 Generalized Anxiety Disorder; Posttraumatic Stress Disorder Christen Whitten [employer]: [address] [facility], [facility] [address], [place] [address], Ph. 02/10/2021 Fatigue; Acute Upper Respiratory Infection Robyn Medina [facility]: [address] [place] [address], Ph. 02/09/2021 Generalized Anxiety Disorder; Posttraumatic Stress Disorder Christen Whitten [employer]: [address] [facility], [facility] [address], [place] [address], Ph. 02/02/2021 Generalized Anxiety Disorder; Posttraumatic Stress Disorder Christen Whitten [employer]: [address] [facility], [facility] [address], [place] [address], Ph. 01/20/2021 Administration of SARS-CoV-2 Antigen Vaccine Luc Walker MD: [address] [place] [address], Ph. 01/13/2021 Patient Asked to Attend; Type II Diabetes Mellitus Uncontrolled; Chronic Low Back Pain; Mixed Hyperlipidemia; Vitamin D Deficiency; Body Mass Index 40+ - Severely Obese [facility] [address] [place] [address], Ph. 01/06/2021 Generalized Anxiety Disorder; Posttraumatic Stress Disorder Christen Whitten, [employer]: [address], [place] [address], Ph. 01/06/2021 Type II Diabetes Mellitus Uncontrolled; Subclinical Hypothyroidism [facility] [address] [place] [address], Ph. 12/22/2020 Generalized Anxiety Disorder; Posttraumatic Stress Disorder Christen Whitten, [employer]: [address], [place] [address], Ph. 12/11/2020 Generalized Anxiety Disorder; Posttraumatic Stress Disorder Christen Whitten, [employer]: [address] [place] [address], Ph. 12/03/2020 Generalized Anxiety Disorder; Posttraumatic Stress Disorder Christen Whitten, [employer]: [address] [place] [address], Ph. 11/12/2020 Generalized Anxiety Disorder; Posttraumatic Stress Disorder Christen Whitten, [employer]: [address] [place] [address], Ph. 11/04/2020 Generalized Anxiety Disorder; Posttraumatic Stress Disorder; Severe Recurrent Major Depression Christen Whitten, [employer]: [address], [place] [address], Ph. 10/20/2020 Generalized Anxiety Disorder; Posttraumatic Stress Disorder; Severe Recurrent Major Depression Christen Whitten, [employer]: [address], [place] [address], Ph. 10/08/2020 Type II Diabetes Mellitus Uncontrolled; Patient Asked to Attend; Subclinical Hypothyroidism [facility]: [address] [place] [address], Ph. 10/08/2020 Generalized Anxiety Disorder; Posttraumatic Stress Disorder; Severe Recurrent Major Depression Christen Whitten [employer]: [address] [place] [address], Ph. 09/25/2020 Prediabetes Luc Walker MD: [address] [place] [address], Ph. 09/23/2020 Generalized Anxiety Disorder; Posttraumatic Stress Disorder; Severe Recurrent Major Depression Christen Whitten [employer]: [address] [facility], [facility] [address], [place] [address], Ph. 09/15/2020 Generalized Anxiety Disorder; Posttraumatic Stress Disorder; Moderate Recurrent Major Depression Christen Whitten [employer]: [address], [facility] [address], [place] [address], Ph. 09/09/2020 Posttraumatic Stress Disorder; Moderate Recurrent Major Depression; Generalized Anxiety Disorder Christen Whitten [employer]: [address], [facility] [address], [place] [address], Ph. 09/02/2020 Generalized Anxiety Disorder; Severe Recurrent Major Depression; Posttraumatic Stress Disorder Chritsen Whitten [employer]: [address], [facility] [address], [place] [address], Ph. 08/12/2020 Generalized Anxiety Disorder; Posttraumatic Stress Disorder; Severe Recurrent Major Depression Christen Whitten, [employer]: [address] [facility], [facility] [address], [place] [address], Ph. 08/12/2020 Robyn Medina, [facility]: [address] [place] [address], Ph. 08/04/2020 Generalized Anxiety Disorder; Posttraumatic Stress Disorder; Severe Recurrent Major Depression Christen Whitten [employer]: [address] [facility] [address], [place] [address], Ph. 07/30/2020 Generalized Anxiety Disorder; Posttraumatic Stress Disorder; Severe Recurrent Major Depression Christen Whitten, [employer]: [address] [place] [address], Ph. 07/07/2020 Generalized Anxiety Disorder; Posttraumatic Stress Disorder; Severe Recurrent Major Depression Christen Whitten [employer]: [address] [facility] [address] [address], Ph. Social History Tobacco Smoking Status Former Smoker Vaccine List Vaccine Type COVID-19 vaccine, vector-nr, [id number], PF , 0.5 mL 10.5 mL Plan of Care Patient Instructions We [...] 54.5 kg/m2 112/78 mm[Hg] 01/13/2021 11:00AM ESTABLISHED [id number] Height Weight BMI Blood Pressure 64 in 322 lbs 4 oz 55.3 kg/m2 (1) 129/93 mm[ Hg] (2) 107/78 mm[Hg] 01/06/2021 09:40AM NURSE LAB COLLECTION Height 64 in 10/08/2020 01:00PM [facility] 20 Height 64 in 05/12/2020 Height Weight [...]
--- OUTSIDE RECORDS SUMMARY | 2021-06-07 06:19 | CCD ---
Author Author [facility] Organization [facility] Address Unknown Phone Unavailable Care Team Providers Care It Technical Support Specialist Name Role Phone Fariha Walker MD Unavailable Unavailable Fariha Walker MD Unavailable Unavailable Fariha Walker MD Unavailable Unavailable Fariha Walker MD Unavailable Unavailable Fariha Walker MD Unavailable Unavailable Fariha Walker MD Unavailable Unavailable Fariha Walker MD Unavailable Unavailable Fariha Walker MD Unavailable Unavailable Fariha Walker MD Unavailable Unavailable Fariha Walker MD Unavailable Unavailable Fariha Walker MD Unavailable Unavailable Fraiha Walker MD Unavailable Unavailable Fariha Walker MD Unavailable Unavailable Fariha Walker MD Unavailable Unavailable Fariha Walker MD Unavailable Unavailable Fariha Walker MD Unavailable Unavailable Fariha Walker MD Unavailable Unavailable Fariha Walker MD Unavailable Unavailable Fariha Walker MD Unavailable Unavailable Fariha Walker MD Unavailable Unavailable Fariha Walker MD Unavailable Unavailable Fariha Walker MD Unavailable Unavailable Fariha Walker MD Unavailable Unavailable Fariha Walker MD Unavailable Unavailable Fariha Walker MD Unavailable Unavailable Fariha Walker MD Unavailable Unavailable Fariha Walker MD Unavailable Unavailable Fariha Walker MD Unavailable Unavailable Fariha Walker MD Unavailable Unavailable Fariha Walker MD Unavailable Unavailable Fariha Walker MD Unavailable Unavailable Fariha Walker MD Unavailable Unavailable Fariha Walker MD Unavailable Unavailable Fariha Walker MD Unavailable Unavailable Fariha Walker MD Unavailable Unavailable Fariha Walker MD Unavailable Unavailable Fariha Walker MD Unavailable Unavailable Fariha Walker MD Unavailable Unavailable Fariha Walker MD Unavailable Unavailable Fariha Walker MD Unavailable Unavailable Fariha Walker MD Unavailable Unavailable Fariha Walker MD Unavailable Unavailable Fariha Walker MD Unavailable Unavailable Fariha Walker MD Unavailable Unavailable Fariha Walker MD Unavailable Unavailable Fariha Walker MD Unavailable Unavailable Fariha Walker MD Unavailable Unavailable Fariha Walker MD Unavailable Unavailable Fariha Walker MD Unavailable Unavailable Fariha Walker MD Unavailable Unavailable Fariha Walker MD Unavailable Unavailable Fariha Walker MD Unavailable Unavailable Fariha Walker MD Unavailable Unavailable Fariha Walker MD Unavailable Unavailable Fariha Walker MD Unavailable Unavailable Fariha Walker MD Unavailable Unavailable Fariha Walker MD Unavailable Unavailable Walker, Fariha Calle MD Unavailable Unavailable Walker, Fariha Calle MD Unavailable Unavailable Walker, Fariha Calle MD Unavailable Unavailable Walker, Fariha Calle MD Unavailable Unavailable Walker, Fariha Calle MD Unavailable Unavailable Walker, Fariha Calle MD Unavailable Unavailable Walker, Fariha Calle MD Unavailable Unavailable Denise, Fariha Calle MD Unavailable Unavailable Denise, Fariha Calle MD Unavailable Unavailable Walker, Fariha Calle MD Unavailable Unavailable Walker, Fariha Calle MD Unavailable Unavailable Walker, Fariha Calle MD Unavailable Unavailable Walker, Fariha Calle MD Unavailable Unavailable Walker, Fariha Calle MD Unavailable Unavailable Walker, Fariha Calle MD Unavailable Unavailable Walker, Fariha Calle MD Unavailable Unavailable Walker, Fariha Calle MD Unavailable Unavailable Walker, Fariha Calle MD Unavailable Unavailable Walker, Fariha Calle MD Unavailable Unavailable Walker, Fariha Calle MD Unavailable Unavailable Walker, Fariha Calle MD Unavailable Unavailable Walker, Fariha Calle MD Unavailable Unavailable Denise, Fariha Calle MD Unavailable Unavailable Walker, Fariha Calle MD Unavailable Unavailable Denise, Fariha Calle MD Unavailable Unavailable Denise, Fariha Calle MD Unavailable Unavailable Walker, Fariha Calle MD Unavailable Unavailable Walker, Fariha Calle MD Unavailable Unavailable Denise, Fariha Calle MD Unavailable Unavailable Walker, Fariha Calle MD Unavailable Unavailable Walker, Fariha Calle MD Unavailable Unavailable Walker, Fariha Calle MD Unavailable Unavailable Walker, Fariha Calle MD Unavailable Unavailable Fariha Walker MD Unavailable Unavailable Fariha Walker MD Unavailable Unavailable Fariha Walker MD Unavailable Unavailable Juannikkoalmazhiginio Christen Unavailable [phone] Adam, Robyn CANT HOOKER CANT HOOKER Unavailable Unavailable Adam, A Robyn CANT HOOKER Unavailable Unavailable Adam, A Robyn CANT HOOKER Unavailable Unavailable Adam, A Robyn CANT HOOKER Unavailable Unavailable Adam, A Robyn CANT HOOKER Unavailable Unavailable Adam, A Robyn CANT HOOKER Unavailable Unavailable Adam, A Robyn CANT HOOKER Unavailable Unavailable Adam, A Robyn CANT HOOKER Unavailable Unavailable Adam, A Robyn CANT HOOKER Unavailable Unavailable Adam, A Robyn CANT HOOKER Unavailable Unavailable Adam, A Robyn CANT HOOKER Unavailable Unavailable Adam, A Robyn CANT HOOKER Unavailable Unavailable Adam, A Robyn CANT HOOKER Unavailable Unavailable Adam, A Robyn CANT HOOKER Unavailable Unavailable Adam, A Robyn CANT HOOKER Unavailable Unavailable Adam, A Robyn CANT HOOKER Unavailable Unavailable Adam, A Robyn CANT HOOKER Unavailable Unavailable Adam, A Robyn CANT HOOKER Unavailable Unavailable Adam, A Robyn CANT HOOKER Unavailable Unavailable Adam, A Robyn CANT HOOKER Unavailable Unavailable Adam, A Robyn CANT HOOKER Unavailable Unavailable Adam, A Robyn CANT HOOKER Unavailable Unavailable Adam, A Robyn CANT HOOKER Unavailable Unavailable Adam, A Robyn CANT HOOKER Unavailable Unavailable Adam, A Robyn CANT HOOKER Unavailable Unavailable Adam, A Robyn CANT HOOKER Unavailable Unavailable Adam, A Robyn CANT HOOKER Unavailable Unavailable Adam, A Robyn CANT HOOKER Unavailable Unavailable Adam, A Robyn CANT HOOKER Unavailable Unavailable Adam, A Robyn CANT HOOKER Unavailable Unavailable Adam, A Robyn CANT HOOKER Unavailable Unavailable Adam, A Robyn CANT HOOKER Unavailable Unavailable Billy Valenzuela MD Unavailable Unavailable AliBilly MD Unavailable Unavailable AliBilly MD Unavailable Unavailable Ali, Billy BECERRA Unavailable Unavailable AliBilly MD Unavailable Unavailable AliBilly MD Unavailable Unavailable AliBilly MD Unavailable Unavailable AliBilly MD Unavailable Unavailable AliBilly MD Unavailable Unavailable AliBilly MD Unavailable Unavailable Ali, Billy BECERRA Unavailable Unavailable Ali, Billy BECERRA Unavailable Unavailable Ali, Billy BECERRA Unavailable Unavailable AliBilly MD Unavailable Unavailable Ali, Billy BECERRA Unavailable Unavailable AliBilly MD Unavailable Unavailable AliBilly MD Unavailable Unavailable AliBilly MD Unavailable Unavailable AliBilly MD Unavailable Unavailable AliBilly MD Unavailable Unavailable Ali, Billy BECERRA Unavailable Unavailable AliBilly MD Unavailable Unavailable Ali, Billy BECERRA Unavailable Unavailable AliBilly MD Unavailable Unavailable AliBilly MD Unavailable Unavailable AliBilly MD Unavailable Unavailable AliBilly MD Unavailable Unavailable AliBilly MD Unavailable Unavailable Ali, Billy BECERRA Unavailable Unavailable Ali, Billy BECERRA Unavailable Unavailable AliBilly MD Unavailable Unavailable AliBilly MD Unavailable Unavailable AliBilly MD Unavailable Unavailable AliBilly MD Unavailable Unavailable AliBilly MD Unavailable Unavailable AliBilly MD Unavailable Unavailable AliBilly MD Unavailable Unavailable AliBilly MD Unavailable Unavailable AliBilly MD Unavailable Unavailable AliBilly MD Unavailable Unavailable AliBilly MD Unavailable Unavailable AliBilly MD Unavailable Unavailable AliBilly MD Unavailable Unavailable AliBilly MD Unavailable Unavailable AliBilly MD Unavailable Unavailable AliBilly MD Unavailable Unavailable AliBilly MD Unavailable Unavailable AliBilly MD Unavailable Unavailable Ali, Billy Unavailable Unavailable Ali, Billy MD Unavailable Unavailable Bulmaro, Simin Unavailable Bulmaro, Simin Unavailable Adam, A Robyn CANT HOOKER Unavailable Unavailable Adam, A Robyn CANT HOOKER Unavailable Unavailable Adam, A Robyn CANT HOOKER Unavailable Unavailable Adam, A Robyn CANT HOOKER Unavailable Unavailable Adam, A Robyn CANT HOOKER Unavailable Unavailable Adam, A Robyn CANT HOOKER Unavailable Unavailable Adam, A Robyn CANT HOOKER Unavailable Unavailable Adam, A Robyn CANT HOOKER Unavailable Unavailable Adam, A Robyn CANT HOOKER Unavailable Unavailable Adam, A Robyn CANT HOOKER Unavailable Unavailable Adam, A Robyn CANT HOOKER Unavailable Unavailable Adam, A Robyn CANT HOOKER Unavailable Unavailable Adam, A Robyn CANT HOOKER Unavailable Unavailable Adam, A Robyn CANT HOOKER Unavailable Unavailable Adam, A Robyn CANT HOOKER Unavailable Unavailable Adam, A Robyn CANT HOOKER Unavailable Unavailable Adam, A Robyn CANT HOOKER Unavailable Unavailable Adam, A Robyn CANT HOOKER Unavailable Unavailable Adam, A Robyn CANT HOOKER Unavailable Unavailable Adam, A Robyn CANT HOOKER Unavailable Unavailable Adam, A Robyn CANT HOOKER Unavailable Unavailable Adam, A Robyn CANT HOOKER Unavailable Unavailable Adam, A Robyn CANT HOOKER Unavailable Unavailable Adam, A Robyn CANT HOOKER Unavailable Unavailable Adam, A Robyn CANT HOOKER Unavailable Unavailable Adam, A Robyn CANT HOOKER Unavailable Unavailable Adam, A Robyn CANT HOOKER Unavailable Unavailable Adam, A Robyn CANT HOOKER Unavailable Unavailable Adam, A Robyn CANT HOOKER Unavailable Unavailable Adam, A Robyn CANT HOOKER Unavailable Unavailable Adam, A Robyn CANT HOOKER Unavailable Unavailable Re-disclosure Warning The records that you are about to access may contain information from federally-assisted alcohol or drug abuse programs. If such information is present, then the following federally mandated warning applies: This information has been disclosed to you from records protected by federal confidentiality rules (42 CFR part 2). The federal rules prohibit you from making any further disclosure of this information unless further disclosure is expressly permitted by the written consent of the person to whom it pertains or as otherwise permitted by 42 CFR part 2. A general authorization for the release of medical or other information is NOT sufficient for this purpose. The Federal rules restrict any use of the information to criminally investigate or prosecute any alcohol or drug abuse patient.The records that you are about to access may contain highly sensitive health information, the redisclosure of which is protected by Article 27-F of the [place] State Public Health law. If you continue you may have access to information: Regarding HIV / AIDS; Provided by facilities licensed or operated by the [facility] Office of Mental Health; or Provided by the [facility] Office for People With Developmental Disabilities. If such information is present, then the following [facility] mandated warning applies: This information has been disclosed to you from confidential records which are protected by state law. State law prohibits you from making any further disclosure of this information without the specific written consent of the person to whom it pertains, or as otherwise permitted by law. Any unauthorized further disclosure in violation of state law may result in a fine or [place] [facility] sentence or both. A general authorization for the release of medical or other information is NOT sufficient authorization for further disc losure. Allergies and Adverse Reactions Type Description Substance Reaction Status Data Source(s ) Allergy to substance Allergy to substance Allergy to substance [facility] ([facility]) Allergy to substance Allergy to substance Allergy to substance [facility] ([facility]) Allergy to substance Allergy to substance Allergy to substance [facility] ([facility]) Allergy to substance Allergy to substance Allergy to substance [facility] ([facility]) Allergy to substance Allergy to substance Allergy to substance [facility] ([facility]) Allergy to substance Allergy to substance Allergy to substance [facility] ([facility]) Allergy to substance Allergy to substance Allergy to substance [facility] ([facility]) Allergy to substance Allergy to substance Allergy to substance [facility] ([facility]) Allergy to substance Allergy to substance Allergy to substance [facility] ([facility]) Allergy to substance Allergy to substance Allergy to substance [facility] ([facility]) Family History Family Member Name Family Member Gender Family Member Status Date o f Status Description Data Source(s) Unknown Male Problem MEDENT ([facility]) () - CIRRHOSIS Encounters Encounter Providers Location Date Indications Data Source(s ) Simin Chamberlain [facility]: [address] [place] [phone], Ph. Attender: Simin RIVERA - [facility] Medical 05/22/2021 12:00:00 AM EDT [place] ([facility]) Christen Whitten, [employer] [employer] [facility]: [address], [place] [address], Ph. Attender: Christen Whitten [facility] Medical 03/24/2021 12:00:00 AM EDT [place] ([facility]) Christen Whitten, [facility] [employer] [facility]: [address], [place] [address], Ph. Attender: Christen Whitten [facility] Medical 03/24/2021 12:00:00 AM EDT [place] ([facility]) Christen Whitten, [employer] [employer] [facility]: [address], [place] [address], Ph. Attender: Christen Whitten [facility] Medical 03/02/2021 12:00:00 AM EDT [place] ([facility]) Christen Whitten, [employer] [facility]: [address], [place] [address], Ph. Attender: Christen Whitten [facility] Medical 03/02/2021 12:00:00 AM EDT [place] ([facility]) Christen Whitten, [employer] [facility]: [address], [place] [address], Ph. Attender: Christen Whitten [facility] Medical 03/02/2021 12:00:00 AM EDT [place] ([facility]) IAM [facility]: [address], [place] [address], Ph. Attender: Robyn [facility] Medical 02/10/2021 12:00:00 AM EDT [place] ([facility]) Robyn Medina [facility]: [address], [place] [address], Ph. Attender: Robyn Medina [facility] Medical 02/10/2021 12:00:00 AM EDT [place] ([facility]) Robyn Medina [facility]: [address], [place] [address], Ph. Attender: Robyn Medina [facility] Medical 02/10/2021 12:00:00 AM EDT [place] ([facility]) Robyn Medina [facility]: [address], [place] [address], Ph. Attender: Robyn Medina [facility] Medical 02/10/2021 12:00:00 AM EDT [place] ([facility]) Christen Whitten, [employer] [facility]: [address], [place] [address], Ph. Attender: Christen Whitten [facility] Medical 02/09/2021 12:00:00 AM EDT [place] ([facility]) Christen Whitten, [employer] [facility]: [address], [place] [address], Ph. Attender: Christen Whitten [facility] Medical 02/09/2021 12:00:00 AM EDT [place] ([facility]) Christen Whitten, [employer]: [address], [place] [address], Ph. Attender: Christen Whitten [facility] Medical 02/09/2021 12:00:00 AM EDT [place] ([facility]) Christen Whitten, [employer]: [address], [place] [address], Ph. Attender: Christen Whitten [facility] Medical 02/09/2021 12:00:00 AM EDT [place] ([facility]) Christen Whitten, [employer] [facility]: [address], [place] [address], Ph. Attender: Christen Whitten [facility] Medical 02/02/2021 12:00:00 AM EDT [place] ([facility]) Christen Whitten, [employer]: [address], [place] [address], Ph. Attender: Christen Whitten [facility] Medical 02/02/2021 12:00:00 AM EDT [place] ([facility]) Christen Whitten, [employer]: [address], [place] [address], Ph. Attender: Christen Whitten [facility] Medical 02/02/2021 12:00:00 AM EDT [place] ([facility]) Christen Whitten, [employer]: [address], [place] [address], Ph. Attender: Christen Whitten [facility] Medical 02/02/2021 12:00:00 AM EDT [place] ([facility]) Christen Whitten, [employer]: [address], [place] [address], Ph. Attender: Christen Whitten [facility] Medical 02/02/2021 12:00:00 AM EDT [place] ([facility]) Luc Walker MD: [address] [place] [address], Ph. Attender: Luc Walker MD [facility] Medical 01/20/2021 12:00:00 AM EDT [place] ([facility]) Luc Walker MD: [address] [place] [address], Ph. Attender: Luc Walker MD [facility] Medical 01/20/2021 12:00:00 AM EDT [place] ([facility]) Luc Walker MD: [address] [place] [address], Ph. Attender: Luc Walker MD [facility] Medical 01/20/2021 12:00:00 AM EDT [place] ([facility]) Luc Walker MD: [address] [place] [address], Ph. Attender: Luc Walker MD [facility] Medical 01/20/2021 12:00:00 AM EDT [place] ([facility]) Luc Walker MD: [address] [place] [address], Ph. Attender: Luc Walker MD [facility] Medical 01/20/2021 12:00:00 AM EDT [place] ([facility]) Luc Walker MD: [address], [place] [address], Ph. Attender: Luc Walker MD [facility] Medical 01/20/2021 12:00:00 AM EDT [place] ([facility]) Robyn Medina [facility]: [address], [place] [address], Ph. Attender: Robyn Medina [facility] Medical 01/13/2021 12:00:00 AM EDT [place] ([facility]) Robyn Medina [facility]: [address], [place] [address], Ph. Attender: Robyn Medina [facility] Medical 01/13/2021 12:00:00 AM EDT [facility]) Robyn Medina [facility]: [address], [place] [address], Ph. Attender: Robyn Medina [facility] Medical 01/13/2021 12:00:00 AM EDT [place] ([facility]) Robyn Medina [facility]: [address], [place] [address], Ph. Attender: Robyn Medina [facility] Medical 01/13/2021 12:00:00 AM EDT [place] ([facility]) Robyn Medina [facility]: [address], [place] [address], Ph. Attender: Robyn Medina [facility] Medical 01/13/2021 12:00:00 AM EDT [place] ([facility]) Robyn Medina [facility]: [address], [place] [address], Ph. Attender: Robyn Medina [facility] Medical 01/13/2021 12:00:00 AM EDT [place] ([facility]) Robyn Medina [facility]: [address], [place] [address], Ph. Attender: Robyn Medina [facility] Medical 01/13/2021 12:00:00 AM EDT [place] ([facility]) Robyn Medina [facility]: [address], [place] [address], Ph. Attender: Robyn Medina [facility] Medical 01/06/2021 12:00:00 AM EDT [place] ([facility]) COLIN [facility]: [address], [place] [address], Ph. Attender: Christen Whitten [facility] Medical 01/06/2021 12:00:00 AM EDT [place] ([facility]) Robyn Medina [facility]: [address], [place] [address], Ph. Attender: Robyn Medina [facility] Medical 01/06/2021 12:00:00 AM EDT [place] ([facility]) COLIN [facility]: [address], [place] [address], Ph. Attender: Christen Whitten [facility] Medical 01/06/2021 12:00:00 AM EDT [place] ([facility]) Robyn Medina [facility]: [address], [place] [address], Ph. Attender: Robyn Medina [facility] Medical 01/06/2021 12:00:00 AM EDT [place] ([facility]) Christen Maria Dolores, [employer]: [address], [place] [address], Ph. Attender: Christen Maria Dolores [facility] Medical 01/06/2021 12:00:00 AM EDT [place] ([facility]) Robyn Medina [facility]: [address], [place] [address], Ph. Attender: Robyn Meidna [facility] Medical 01/06/2021 12:00:00 AM EDT [place] ([facility]) Christen Maria Dolores, [employer]: [address], [address], [place] [address], Ph. Attender: Christen Maria Dolores [facility] Medical 01/06/2021 12:00:00 AM EDT [place] ([facility]) Robyn Medina [facility]: [address], [place] [address], Ph. Attender: Robyn Medina [facility] Medical 01/06/2021 12:00:00 AM EDT [place] ([facility]) Christen Maria Dolores, [employer]: [address], [place] [address], Ph. Attender: Christen Whitten [facility] Medical 01/06/2021 12:00:00 AM EDT [place] ([facility]) Robyn Medina [facility]: [address], [place] [address], Ph. Attender: Robyn Medina [facility] Medical 01/06/2021 12:00:00 AM EDT [place] ([facility]) Christen Whitten, [employer]: [address], [place] [address], Ph. Attender: Christen Whitten [facility] Medical 01/06/2021 12:00:00 AM EDT [place] ([facility]) [facility]: [address], [place] [address], Ph. Attender: Robyn Medina [facility] Medical 01/06/2021 12:00:00 AM EDT [place] ([facility]) Christen Whitten, [employer]: [address], [place] [address], Ph. Attender: Christen Whitten [facility] Medical 01/06/2021 12:00:00 AM EDT [place] ([facility]) oRbyn Medina [facility]: [address], [place] [address], Ph. Attender: Robyn Medina [facility] Medical 01/06/2021 12:00:00 AM EDT [place] ([facility]) Christen Maria Dolores, [facility]: [address], [address], [place] [address], Ph. Attender: Christen Whitten [facility] Medical 01/06/2021 12:00:00 AM EDT [place] ([facility]) Robyn Adam, [facility]: [address], [place] [address], Ph. Attender: Robyn Medina [facility] Medical 01/06/2021 12:00:00 AM EDT [place] ([facility]) Christen Whitten, [facility]: [address], [address], [place] [address], Ph. Attender: Christen Whitten [facility] Medical 01/06/2021 12:00:00 AM EDT [place] ([facility]) Christen Whitten, [facility]: [address], [address], [place] [address], Ph. Attender: Christen Whitten [facility] Medical 12/22/2020 12:00:00 AM EDT [place] ([facility]) Christen Whitten, [facility]: [address], [address], [place] [address], Ph. Attender: Christen Whitten [facility] Medical 12/22/2020 12:00:00 AM EDT [place] ([facility]) Christen Whitten, [facility]: [address], [address], [place] [address], Ph. Attender: Christen Whitten [facility] Medical 12/22/2020 12:00:00 AM EDT [place] ([facility]) Christen Whitten, [facility]: [address], [address], [place] [address], Ph. Attender: Christen Whitten [facility] Medical 12/22/2020 12:00:00 AM EDT [place] ([facility]) Christen Whitten, [facility]: [address], [address], [place] [address], Ph. Attender: Christen Whitten [facility] Medical 12/22/2020 12:00:00 AM EDT [place] ([facility]) Christen Whitten, [facility]: [address], [address], [place] [address], Ph. Attender: Christen Whitten [facility] Medical 12/22/2020 12:00:00 AM EDT [place] ([facility]) Christen Whitten, [facility]: [address], [address], [place] [address], Ph. Attender: Christen Whitten [facility] Medical 12/22/2020 12:00:00 AM EDT [place] ([facility]) Christen Whitten, [facility]: [address], [address], [place] [address], Ph. Attender: Christen Whitten [facility] Medical 12/22/2020 12:00:00 AM EDT [place] ([facility]) Christen Whitten, [facility]: [address], [address], [place] [address], Ph. Attender: Christen Whitten [facility] Medical 12/22/2020 12:00:00 AM EDT [place] ([facility]) Christen Whitten, [facility]: [address], [address], [place] [address], Ph. Attender: Christen Whitten [facility] Medical 12/22/2020 12:00:00 AM EDT [place] ([facility]) Christen Whitten, [facility]: [address] [place] [address], Ph. Attender: Christen Whitten [facility] Medical 12/11/2020 12:00:00 AM EDT [place] ([facility]) Christen Whitten, [facility]: [address] [place] [address], Ph. Attender: Christen Whitten [facility] Medical 12/11/2020 12:00:00 AM EDT [place] ([facility]) Christen Whitten, [facility]: [address] [place] [address], Ph. Attender: Christen Whitten [facility] Medical 12/11/2020 12:00:00 AM EDT [place] ([facility]) Christen Whitten, [facility]: [address] [place] [address], Ph. Attender: Christen Whitten [facility] Medical 12/11/2020 12:00:00 AM EDT [place] ([facility]) Christen Whitten, [facility]: [address] , [place] [address], Ph. Attender: Christen Whitten [facility] Medical 12/11/2020 12:00:00 AM EDT [place] ([facility]) Christen Whitten, [facility]: [address] , [place] [address], Ph. Attender: Christen Whitten [facility] Medical 12/11/2020 12:00:00 AM EDT [place] ([facility]) Christen Martineznikkocarmel, [facility]: [address] , [place] [address], Ph. Attender: Christen Whitten [facility] Medical 12/11/2020 12:00:00 AM EDT [place] ([facility]) Christen Whitten, [facility]: [address] [place] [address], Ph. Attender: Christen Whitten [facility] Medical 12/11/2020 12:00:00 AM EDT [place] ([facility]) Christen Ronnyalmazhiginio, [facility]: [address] , [place] [address], Ph. Attender: Christen Whitten [facility] Medical 12/11/2020 12:00:00 AM EDT [place] ([facility]) Christen Maria Dolores, [facility]: [address] [place] [address], Ph. Attender: Christen Whitten [facility] Medical 12/11/2020 12:00:00 AM EDT [place] ([facility]) Christen Whitten, [facility]: [address] , [place] [address], Ph. Attender: Christen Whitten [facility] Medical 12/11/2020 12:00:00 AM EDT [place] ([facility]) Christen Whitten, [facility]: [address] [place] [address], Ph. Attender: Christen Whitten [facility] Medical 12/03/2020 12:00:00 AM EDT [place] ([facility]) Christen Whitten, [facility]: [address] [place] [address], Ph. Attender: Christen Whitten [facility] Medical 12/03/2020 12:00:00 AM EDT [place] ([facility]) Christen Whitten, [facility]: [address] [place] [address], Ph. Attender: Christen Whitten [facility] Medical 12/03/2020 12:00:00 AM EDT [place] ([facility]) Christen Whitten, [facility]: [address] [place] [address], Ph. Attender: Christen Whitten [facility] Medical 12/03/2020 12:00:00 AM EDT [place] ([facility]) Christen Whitten, [facility]: [address] , [place] [address], Ph. Attender: Christen Whitten [facility] Medical 12/03/2020 12:00:00 AM EDT [place] ([facility]) Christen Whitten, [facility]: [address] , [place] [address], Ph. Attender: Christen Whitten [facility] Medical 12/03/2020 12:00:00 AM EDT [place] ([facility]) Christen Whitten, [facility]: [address] , [place] [address], Ph. Attender: Christen Whitten [facility] Medical 12/03/2020 12:00:00 AM EDT [facility]) Christen Whitten, [facility]: [address] [place] [address], Ph. Attender: Christen Whitten [facility] Medical 12/03/2020 12:00:00 AM EDT [facility]) Christen Whitten, [facility]: [address] , [place] [address], Ph. Attender: Christen Whitten [facility] Medical 12/03/2020 12:00:00 AM EDT [place] ([facility]) Christen Whitten, [facility]: [address] , [place] [address], Ph. Attender: Christen Ronnyalmazhiginio [facility] Medical 12/03/2020 12:00:00 AM EDT [place] ([facility]) Christen Whitten, [facility]: [address] , [place] [address], Ph. Attender: Christen Whitten [facility] Medical 12/03/2020 12:00:00 AM EDT [place] ([facility]) Christen Whitten, [facility]: [address] , [place] [address], Ph. Attender: Christen Whitten [facility] Medical 12/03/2020 12:00:00 AM EDT [place] ([facility]) Christen Ronnyalmazhiginio, [facility]: [address] [place] [address], Ph. Attender: Crhisten Martineznikkoalmazhiginio [facility] Medical 11/12/2020 12:00:00 AM EDT [place] ([facility]) Christen Martineznikkocarmle, [facility]: [address] [place] [address], Ph. Attender: Christen Ronnyalmazhiginio [facility] Medical 11/12/2020 12:00:00 AM EDT [place] ([facility]) Christen Martineznikkoalmazhiginio, [facility]: [address] , [place] [address], Ph. Attender: Christen Ronnyalmazhiginio [facility] Medical 11/12/2020 12:00:00 AM EDT [place] ([facility]) Christen Maria Dolores, [facility]: [address] , [place] [address], Ph. Attender: Christen Whitten [facility] Medical 11/12/2020 12:00:00 AM EDT [place] ([facility]) Christen Whitten, [facility]: [address] , [place] [address], Ph. Attender: Christen Whitten [facility] Medical 11/12/2020 12:00:00 AM EDT [place] ([facility]) Christen Whitten, [facility]: [address] , [place] [address], Ph. Attender: Christen Whitten [facility] Medical 11/12/2020 12:00:00 AM EDT [facility]) Christen Martineznikkocarmel, [facility]: [address] [place] [address], Ph. Attender: Christen Whitten [facility] Medical 11/12/2020 12:00:00 AM EDT [place] ([facility]) Christen Whitten, [facility]: [address] [place] [address], Ph. Attender: Christen Whitten [facility] Medical 11/12/2020 12:00:00 AM EDT [place] ([facility]) Christen Ronnycarmel, [facility]: [address] [place] [address], Ph. Attender: Christen Whitten [facility] Medical 11/12/2020 12:00:00 AM EDT [place] ([facility]) Christen Maria Dolores, [employer] [employer] [facility]: [address] , [place] [address], Ph. Attender: Christen Whitten [facility] Medical 11/12/2020 12:00:00 AM EDT [place] ([facility]) Christen Whitten, [facility]: [address] [place] [address], Ph. Attender: Christen Whitten [facility] Medical 11/12/2020 12:00:00 AM EDT [place] ([facility]) Christen Whitten, [facility]: [address] [place] [address], Ph. Attender: Christen Whitten [facility] Medical 11/12/2020 12:00:00 AM EDT [place] ([facility]) Christen Whitten, [facility]: [address] [place] [address], Ph. Attender: Christen Whitten [facility] Medical 11/12/2020 12:00:00 AM EDT [place] ([facility]) Christen Whitten, [facility]: [address], [address], [place] [address], Ph. Attender: Christen Whitten [facility] Medical 11/04/2020 12:00:00 AM EDT [place] ([facility]) Christen Whitten, [facility]: [address], [address], [place] [address], Ph. Attender: Christen Whitten [facility] Medical 11/04/2020 12:00:00 AM EDT [place] ([facility]) Christen Whitten, [facility]: [address], [address], [place] [address], Ph. Attender: Christen Whitten [facility] Medical 11/04/2020 12:00:00 AM EDT [place] ([facility]) Christen Whitten, [facility]: [address], [address], [place] [address], Ph. Attender: Christen Whitten [facility] Medical 11/04/2020 12:00:00 AM EDT [place] ([facility]) Christen Whitten, [facility]: [address], [address], [place] [address], Ph. Attender: Christen Whitten [facility] Medical 11/04/2020 12:00:00 AM EDT [place] ([facility]) Christen Whitten, [employer] [employer]: [address], [address], [place] [address], Ph. Attender: Christen Whitten [facility] Medical 11/04/2020 12:00:00 AM EDT [place] ([facility]) Christen Whitten, [employer]: [address], [address], [place] [address], Ph. Attender: Christen Whitten [facility] Medical 11/04/2020 12:00:00 AM EDT [place] ([facility]) Christen Whitten, [facility]: [address], [address], [place] [address], Ph. Attender: Christen Whitten [facility] Medical 11/04/2020 12:00:00 AM EDT [place] ([facility]) Christen Whtiten, [facility]: [address], [address], [place] [address], Ph. Attender: Christen Whitten [facility] Medical 11/04/2020 12:00:00 AM EDT [place] ([facility]) Christen Whitten, [employer] [employer]: [address], [address], [place] [address], Ph. Attender: Christen Whitten [facility] Medical 11/04/2020 12:00:00 AM EDT [place] ([facility]) Christen Whitten, [employer] [employer] [facility]: [address], [address], [place] [address], Ph. Attender: Christen Whitten [facility] Medical 11/04/2020 12:00:00 AM EDT [place] ([facility]) Christen Whitten, [employer] [employer]: [address], [address], [place] [address], Ph. Attender: Christen Whitten [facility] Medical 11/04/2020 12:00:00 AM EDT [place] ([facility]) Christen Whitten, [employer] [employer]: [address], [address], [place] [address], Ph. Attender: Christen Whitten [facility] Medical 11/04/2020 12:00:00 AM EDT [place] ([facility]) Christen Whitten, [employer] [facility]: [address], [address], [place] [address], Ph. Attender: Christen Whitten [facility] Medical 11/04/2020 12:00:00 AM EDT [place] ([facility]) Christen Whitten, [employer] [facility]: [address], [address], [place] [address], Ph. Attender: Christen Whitten [facility] Medical 10/20/2020 12:00:00 AM EST [place] ([facility]) Christen Whitten, [employer] [facility]: [address], [address], [place] [address], Ph. Attender: Christen Whitten [facility] Medical 10/20/2020 12:00:00 AM EST [place] ([facility]) Christen Whitten, [employer] [facility]: [address], [address], [place] [address], Ph. Attender: Christen Whitten [facility] Medical 10/20/2020 12:00:00 AM EST [place] ([facility]) Christen Whitten, [employer] [facility]: [address], [address], [place] [address], Ph. Attender: Christen Whitten [facility] Medical 10/20/2020 12:00:00 AM EST [place] ([facility]) Christen Whitten, [employer] [facility]: [address], [address], [place] [address], Ph. Attender: Christen Whitten [facility] Medical 10/20/2020 12:00:00 AM EST [place] ([facility]) Christen Whitten, [employer] [facility]: [address], [address], [place] [address], Ph. Attender: Christen Whitten [facility] Medical 10/20/2020 12:00:00 AM EST [place] ([facility]) Christen Whitten, [employer] [employer] [facility]: [address], [address], [place] [address], Ph. Attender: Christen Whitten [facility] Medical 10/20/2020 12:00:00 AM EST [place] ([facility]) Christen Whitten, [employer]: [address], [address], [place] [address], Ph. Attender: Christen Whitten [facility] Medical 10/20/2020 12:00:00 AM EST [place] ([facility]) Christen Whitten, [employer] [facility]: [address], [address], [place] [address], Ph. Attender: Christen Whitten [facility] Medical 10/20/2020 12:00:00 AM EST [place] ([facility]) Christen Whitten, [employer] [facility]: [address], [address], [place] [address], Ph. Attender: Christen Whitten [facility] Medical 10/20/2020 12:00:00 AM EST [place] ([facility]) Christen Whitten, [employer] [facility]: [address], [address], [place] [address], Ph. Attender: Christen Whitten [facility] Medical 10/20/2020 12:00:00 AM EST [place] ([facility]) Christen Whitten, [employer] [facility]: [address], [address], [place] [address], Ph. Attender: Christen Whitten [facility] Medical 10/20/2020 12:00:00 AM EST [place] ([facility]) Christen Whitten, [employer] [employer] [facility]: [address], [address], [place] [address], Ph. Attender: Christen Whitten [facility] Medical 10/20/2020 12:00:00 AM EST [place] ([facility]) Christen Whitten, [employer] [facility]: [address], [address], [place] [address], Ph. Attender: Christen Whitten [facility] Medical 10/20/2020 12:00:00 AM EST [place] ([facility]) Christen Whitten, [employer] [facility]: [address], [address], [place] [address], Ph. Attender: Christen Whitten [facility] Medical 10/20/2020 12:00:00 AM EST [place] ([facility]) Christen Whitten, [employer] [facility]: [address], [address], [place] [address], Ph. Attender: Christen Whitten [facility] Medical 10/20/2020 12:00:00 AM EST [place] ([facility]) Christen Whitten, [facility]: [address], [address], [place] [address], Ph. Attender: Christen Whitten [facility] Medical 10/20/2020 12:00:00 AM EST [place] ([facility]) Christen Whitten, [employer] [employer] [facility]: [address] [place] [address], Ph. Attender: Christen Whitten [facility] Medical 10/08/2020 12:00:00 AM EST [place] ([facility]) [facility]: [address] [place] [address], Ph. Attender: Robyn VITALE [facility] Medical 10/08/2020 12:00:00 AM EST [place] ([facility]) Christen Whitten, [employer] [employer]: [address] [place] [address], Ph. Attender: Christen Whitten [facility] Medical 10/08/2020 12:00:00 AM EST [place] ([facility]) Robyn Medina [facility]: [address], [place] [address], Ph. Attender: Robyn Medina [facility] Medical 10/08/2020 12:00:00 AM EST [place] ([facility]) Christen Maria Dolores, [employer] [facility]: [address] , [place] [address], Ph. Attender: Christen Whitten [facility] 10/08/2020 12:00:00 AM EST [place] ([facility]) [facility]: [address], [place] [address], Ph. Attender: Robyn Medina [facility] Medical 10/08/2020 12:00:00 AM EST [place] ([facility]) Christen Maria Dolores, [employer] [facility]: [address] [place] [address], Ph. Attender: Christen Whitten [facility] Medical 10/08/2020 12:00:00 AM EST [place] ([facility]) Robyn Medina [facility]: [address], [place] [address], Ph. Attender: Robyn Medina [facility] Medical 10/08/2020 12:00:00 AM EST [place] ([facility]) Christen Maria Dolores, [employer] [facility]: [address] [place] [address], Ph. Attender: Christen Whitten [facility] Medical 10/08/2020 12:00:00 AM EST [place] ([facility]) Robyn Medina [facility]: [address] [place] [address], Ph. Attender: Robyn Medina [facility] Medical 10/08/2020 12:00:00 AM EST [place] ([facility]) Christen Whitten, [employer] [facility]: [address] , [place] [address], Ph. Attender: Christen Whitten [facility] 10/08/2020 12:00:00 AM EST [place] ([facility]) Robyn Medina [facility]: [address], [place] [address], Ph. Attender: Robyn Medina [facility] Medical 10/08/2020 12:00:00 AM EST [place] ([facility]) Christen Whitten, [employer] [facility]: [address] [place] [address], Ph. Attender: Christen Whitten [facility] Medical 10/08/2020 12:00:00 AM EST [place] ([facility]) [facility] [address] [place] [address], Ph. Attender: Robyn Medina [facility] Medical 10/08/2020 12:00:00 AM EST [place] ([facility]) Christen Whitten, [employer] [facility]: [address] [place] [address], Ph. Attender: Christen Whitten [facility] Medical 10/08/2020 12:00:00 AM EST [place] ([facility]) Robyn Medina [facility]: [address], [place] [address], Ph. Attender: Robyn Medina [facility] Medical 10/08/2020 12:00:00 AM EST [place] ([facility]) Christen Whitten, [employer] [facility]: [address] [place] [address], Ph. Attender: Christen Whitten [facility] Medical 10/08/2020 12:00:00 AM EST [place] ([facility]) Robyn Medina [facility]: [address] [place] [address], Ph. Attender: Robyn Medina [facility] Medical 10/08/2020 12:00:00 AM EST [place] ([facility]) Christen Whitten, [employer] [facility]: [address] [place] [address], Ph. Attender: Christen Whitten [facility] Medical 10/08/2020 12:00:00 AM EST [place] ([facility]) Robyn Medina [facility]: [address] [place] [address], Ph. Attender: Robyn Medina [facility] Medical 10/08/2020 12:00:00 AM EST [place] ([facility]) Christen Whitten, [employer] [facility]: [address] [place] [address], Ph. Attender: Christen Whitten [facility] Medical 10/08/2020 12:00:00 AM EST [place] ([facility]) Robyn Medina [facility]: [address], [place] [address], Ph. Attender: Robyn Medina [facility] Medical 10/08/2020 12:00:00 AM EST JONATAN ([facility]) Christen Whitten, [employer]: [address] [place] [address], Ph. Attender: Christen Whitten [facility] Medical 10/08/2020 12:00:00 AM EST JONATAN ([facility]) Robyn Medina [facility]: [address], [place] [address], Ph. Attender: Robyn Medina [facility] Medical 10/08/2020 12:00:00 AM EST JONATAN ([facility]) Christen Whtiten, [employer]: [address] [place] [address], Ph. Attender: Christen Whitten [facility] Medical 10/08/2020 12:00:00 AM EST JONATAN ([facility]) Robyn Medina [facility]: [address], [place] [address], Ph. Attender: Robyn Medina [facility] Medical 10/08/2020 12:00:00 AM EST JONATAN ([facility]) Christen Whitten, [employer]: [address] , [place] [address], Ph. Attender: Christen Whitten [facility] Medical 10/08/2020 12:00:00 AM EST JONATAN ([facility]) Christen Whitten, [employer]: [address] , [place] [address], Ph. Attender: Christen Whitten [facility] Medical 10/08/2020 12:00:00 AM EST JONATAN ([facility]) Robyn Medina [facility]: [address], [place] [address], Ph. Attender: Robyn Medina [facility] Medical 10/08/2020 12:00:00 AM EST JONATAN ([facility]) Christen Whitten, [employer]: [address] [place] [address], Ph. Attender: Christen Whitten [facility] Medical 10/08/2020 12:00:00 AM EST JONATAN ([facility]) DARRYN Woo: [address], [place] [address], Ph. Attender: Robyn Medina [facility] Medical 10/08/2020 12:00:00 AM EST JONATAN ([facility]) Christen Whitten, [employer]: [address] , [place] [address], Ph. Attender: Christen Whitten [facility] Medical 10/08/2020 12:00:00 AM EST JONATAN ([facility]) DARRYN Woo: [address], [place] [address], Ph. Attender: Robyn Medina [facility] Medical 10/08/2020 12:00:00 AM EST JONATAN ([facility]) Christen Whitten, [employer]: [address] [place] [address], Ph. Attender: Christen Whitten [facility] Medical 10/08/2020 12:00:00 AM EST JONATAN ([facility]) [facility]: [address] [place] [address], Ph. Attender: Robyn Medina [facility] Medical 10/08/2020 12:00:00 AM EST JONATAN ([facility]) Christen Burchhiginio [employer]: [address] [place] [address], Ph. Attender: Christen Burchhiginio [facility] Medical 10/08/2020 12:00:00 AM EST JONATAN ([facility]) Robyn Medina [facility]: [address] [place] [address], Ph. Attender: Robyn Medina [facility] Medical 10/08/2020 12:00:00 AM EST JONATAN ([facility]) Luc Walker MD: [address] [place] [address], Ph. Attender: Luc Walker MD [facility] Medical 09/25/2020 12:00:00 AM EST JONATAN ([facility]) Luc Walker MD: [address] [place] [address], Ph. Attender: Luc Walker MD [facility] Medical 09/25/2020 12:00:00 AM EST JONATAN ([facility]) Luc Walker MD: [address] [place] [address], Ph. Attender: Luc Walker MD [facility] Medical 09/25/2020 12:00:00 AM EST JONATAN ([facility]) Luc Walker MD: [address] [place] [address], Ph. Attender: Luc Walker MD [facility] Medical 09/25/2020 12:00:00 AM EST JONATAN ([facility]) Luc Walker MD: [address] [place] [address], Ph. Attender: Luc Walker MD [facility] Medical 09/25/2020 12:00:00 AM EST JONATAN ([facility]) Luc Walker MD: [address] [place] [address], Ph. Attender: Luc Walker MD [facility] Medical 09/25/2020 12:00:00 AM EST JONATAN ([facility]) Luc Walker MD: [address] [place] [address], Ph. Attender: Luc Walker MD [facility] Medical 09/25/2020 12:00:00 AM EST JONATAN ([facility]) Luc Walker MD: [address] [place] [address], Ph. Attender: Luc Walker MD [facility] Medical 09/25/2020 12:00:00 AM EST JONATAN ([facility]) Luc Walker MD: [address] [place] [address], Ph. Attender: Luc Walker MD [facility] Medical 09/25/2020 12:00:00 AM EST JONATAN ([facility]) Luc Walker MD: [address] [place] [address], Ph. Attender: Luc Walker MD [facility] Medical 09/25/2020 12:00:00 AM EST JONATAN ([facility]) Luc Walker MD: [address] [place] [address], Ph. Attender: Luc Walker MD [facility] Medical 09/25/2020 12:00:00 AM EST JONATAN ([facility]) Luc Walker MD: [address] [place] [address], Ph. Attender: Luc Walker MD [facility] Medical 09/25/2020 12:00:00 AM EST JONATAN ([facility]) Luc Walker MD: [address] [place] [address], Ph. Attender: Luc Walker MD [facility] Medical 09/25/2020 12:00:00 AM EST JONATAN ([facility]) Luc Walker MD: [address] [place] [address], Ph. Attender: Luc Walker MD [facility] Medical 09/25/2020 12:00:00 AM EST JONATAN ([facility]) Luc Walker MD: [address] [place] [address], Ph. Attender: Luc Walker MD [facility] Medical 09/25/2020 12:00:00 AM EST JONATAN ([facility]) Luc Walker MD: [address] [place] [address], Ph. Attender: Luc Walker MD [facility] Medical 09/25/2020 12:00:00 AM EST JONATAN ([facility]) Luc Walker MD: [address] [place] [address], Ph. Attender: Luc Walker MD [facility] Medical 09/25/2020 12:00:00 AM EST JONATAN ([facility]) Luc Walker MD: [address] [place] [address], Ph. Attender: Luc Walker MD [facility] Medical 09/25/2020 12:00:00 AM EST JONATAN ([facility]) Luc Walker MD: [address] [place] [address], Ph. Attender: Luc Walker MD [facility] Medical 09/25/2020 12:00:00 AM EST JONATAN ([facility]) Christen Whitten, [employer]: [address], [place] [address], Ph. Attender: Christen Whitten [facility] Medical 09/23/2020 12:00:00 AM EST JONATAN ([facility]) Christen Whitten, [employer]: [address], [address], [place] [address], Ph. Attender: Christen Whitten [facility] Medical 09/23/2020 12:00:00 AM EST JONATAN ([facility]) Christen Whitten, [employer]: [address], [address], [place] [address], Ph. Attender: Christen Whitten [facility] Medical 09/23/2020 12:00:00 AM EST JONATAN ([facility]) Christen Whitten, [employer]: [address], [address], [place] [address], Ph. Attender: Christen Whitten [facility] Medical 09/23/2020 12:00:00 AM EST JONATAN ([facility]) Christen Whitten, [employer]: [address], [address], [place] [address], Ph. Attender: Christen Whitten [facility] Medical 09/23/2020 12:00:00 AM EST JONATAN ([facility]) Christen Whittne, [employer]: [address], [address], [place] [address], Ph. Attender: Christen Whitten [facility] Medical 09/23/2020 12:00:00 AM EST JONATAN ([facility]) Christen Whitten, [employer]: [address], [address], [place] [address], Ph. Attender: Christen Whitten [facility] Medical 09/23/2020 12:00:00 AM EST JONATAN ([facility]) Christen Whitten, [employer]: [address], [address], [place] [address], Ph. Attender: Christen Whitten [facility] Medical 09/23/2020 12:00:00 AM EST JONATAN ([facility]) Christen Whitten, [employer]: [address], [address], [place] [address], Ph. Attender: Christen Whitten [facility] Medical 09/23/2020 12:00:00 AM EST JONATAN ([facility]) Christen Whitten, [employer]: [address], [address], [place] [address], Ph. Attender: Christen Whitten [facility] Medical 09/23/2020 12:00:00 AM EST JONATAN ([facility]) Christen Whitten, [employer]: [address], [address], [place] [address], Ph. Attender: Christen Whitten [facility] Medical 09/23/2020 12:00:00 AM EST JONATAN ([facility]) Christen Whitten, [employer]: [address], [address], [place] [address], Ph. Attender: Christen Whitten [facility] Medical 09/23/2020 12:00:00 AM EST JONATAN ([facility]) Christen Whitten, [employer]: [address], [address], [place] [address], Ph. Attender: Christen Whitten [facility] Medical 09/23/2020 12:00:00 AM EST JONATAN ([facility]) Christen Whitten, [employer]: [address], [address], [place] [address], Ph. Attender: Christen Whitten [facility] Medical 09/23/2020 12:00:00 AM EST JONATAN ([facility]) Christen Whitten, [employer]: [address], [address], [place] [address], Ph. Attender: Christen Whitten [facility] Medical 09/23/2020 12:00:00 AM EST JONATAN ([facility]) Christen Whitten, [employer]: [address], [address], [place] [address], Ph. Attender: Christen Whitten [facility] Medical 09/23/2020 12:00:00 AM EST JONATAN ([facility]) Christen Whitten, [employer]: [address], [address], [place] [address], Ph. Attender: Christen Whitten [facility] Medical 09/23/2020 12:00:00 AM EST JONATAN ([facility]) Christen Whitten, [employer]: [address], [address], [place] [address], Ph. Attender: Christen Whitten [facility] Medical 09/23/2020 12:00:00 AM EST JONATAN ([facility]) Christen Whitten, [employer]: [address], [address], [place] [address], Ph. Attender: Christen Whitten [facility] Medical 09/23/2020 12:00:00 AM EST JONATAN ([facility]) Christen Whitten, [employer]: [address], [address], [place] [address], Ph. Attender: Christen Whitten [facility] Medical 09/23/2020 12:00:00 AM EST JONATAN ([facility]) Christen Whitten, [employer]: [address], [address], [place] [address], Ph. Attender: Christen Whitten [facility] Medical 09/15/2020 12:00:00 AM EST JONATAN ([facility]) Christen Whitten, [employer]: [address], [address], [place] [address], Ph. Attender: Christen Whitten [facility] Medical 09/15/2020 12:00:00 AM EST JONATAN ([facility]) Christen Whitten, [employer]: [address], [address], [place] [address], Ph. Attender: Christen Whitten [facility] Medical 09/15/2020 12:00:00 AM EST JONATAN ([facility]) Christen Whitten, [employer]: [address], [address], [place] [address], Ph. Attender: Christen Whitten [facility] Medical 09/15/2020 12:00:00 AM EST JONATAN ([facility]) Christen Whitten, [employer]: [address], [address], [place] [address], Ph. Attender: Christen Whitten [facility] Medical 09/15/2020 12:00:00 AM EST JONATAN ([facility]) Christen Whitten, [employer]: [address], [address], [place] [address], Ph. Attender: Christen Whitten [facility] Medical 09/15/2020 12:00:00 AM EST JONATAN ([facility]) Christen Whitten, [employer]: [address], [address], [place] [address], Ph. Attender: Christen Whitten [facility] Medical 09/15/2020 12:00:00 AM EST JONATAN ([facility]) Christen Whitten, [employer]: [address], [address], [place] [address], Ph. Attender: Christen Whitten [facility] Medical 09/15/2020 12:00:00 AM EST JONATAN ([facility]) Christen Whitten, [employer]: [address], [address], [place] [address], Ph. Attender: Christen Whitten [facility] Medical 09/15/2020 12:00:00 AM EST JONATAN ([facility]) Christen Whitten, [employer]: [address], [address], [place] [address], Ph. Attender: Christen Whitten [facility] Medical 09/15/2020 12:00:00 AM EST JONATAN ([facility]) Christen Whitten, [employer]: [address], [address], [place] [address], Ph. Attender: Christen Whitten [facility] Medical 09/15/2020 12:00:00 AM EST JONATAN ([facility]) Christen Whitten, [employer]: [address], [address], [place] [address], Ph. Attender: Christen Whitten [facility] Medical 09/15/2020 12:00:00 AM EST JONATAN ([facility]) Christen Whitten, [employer]: [address], [address], [place] [address], Ph. Attender: Christen Whitten [facility] Medical 09/15/2020 12:00:00 AM EST JONATAN ([facility]) Christen Whitten, [employer]: [address], [address], [place] [address], Ph. Attender: Christen Whitten [facility] Medical 09/15/2020 12:00:00 AM EST JONATAN ([facility]) Christen Whitten, [employer]: [address], [address], [place] [address], Ph. Attender: Christen Whitten [facility] Medical 09/15/2020 12:00:00 AM EST JONATAN ([facility]) Christen Whitten, [employer]: [address], [address], [place] [address], Ph. Attender: Christen Whitten [facility] Medical 09/15/2020 12:00:00 AM EST JONATAN ([facility]) Christen Whitten, [employer]: [address], [address], [place] [address], Ph. Attender: Christen Whitten [facility] Medical 09/15/2020 12:00:00 AM EST JONATAN ([facility]) Christen Whitten, [employer]: [address], [address], [place] [address], Ph. Attender: Christen Whitten [facility] Medical 09/15/2020 12:00:00 AM EST JONATAN ([facility]) Christen Whitten, [employer]: [address], [address], [place] [address], Ph. Attender: Christen Whitten [facility] Medical 09/15/2020 12:00:00 AM EST JONATAN ([facility]) Christen Whitten, [employer]: [address], [address], [place] [address], Ph. Attender: Christen Whitten [facility] Medical 09/15/2020 12:00:00 AM EST JONATAN ([facility]) Christen Whitten, [employer]: [address], [address], [place] [address], Ph. Attender: Christen Whitten [facility] Medical 09/15/2020 12:00:00 AM EST JONATAN ([facility]) Christen Whitten, [employer]: [address], [address], [place] [address], Ph. Attender: Christen Whitten [facility] Medical 09/09/2020 12:00:00 AM EST JONATAN ([facility]) Christen Whitten, [employer]: [address], [address], [place] [address], Ph. Attender: Christen Whitten [facility] Medical 09/09/2020 12:00:00 AM EST JONATAN ([facility]) Christen Whitten, [employer]: [address], [address], [place] [address], Ph. Attender: Christen Whitten [facility] Medical 09/09/2020 12:00:00 AM EST JONATAN ([facility]) Christen Whitten, [employer]: [address], [address], [place] [address], Ph. Attender: Christen Whitten [facility] Medical 09/09/2020 12:00:00 AM EST JONATAN ([facility]) Christen Whitten, [employer]: [address], [address], [place] [address], Ph. Attender: Christen Whitten [facility] Medical 09/09/2020 12:00:00 AM EST JONATAN ([facility]) Christen Whitten, [employer]: [address], [address], [place] [address], Ph. Attender: Christen Whitten [facility] Medical 09/09/2020 12:00:00 AM EST JONATAN ([facility]) Christen Whitten, [employer]: [address], [address], [place] [address], Ph. Attender: Christen Whitten [facility] Medical 09/09/2020 12:00:00 AM EST JONATAN ([facility]) Christen Whitten, [employer]: [address], [address], [place] [address], Ph. Attender: Christen Whitten [facility] Medical 09/09/2020 12:00:00 AM EST JONATAN ([facility]) Christen Whitten, [employer]: [address], [address], [place] [address], Ph. Attender: Christen Whitten [facility] Medical 09/09/2020 12:00:00 AM EST JONATAN ([facility]) Christen Whitten, [employer]: [address], [place] [address], Ph. Attender: Christen Whitten [facility] Medical 09/09/2020 12:00:00 AM EST JONATAN ([facility]) Christen Whitten, [employer]: [address], [address], [place] [address], Ph. Attender: Christen Whitten [facility] Medical 09/09/2020 12:00:00 AM EST JONATAN ([facility]) Christen Whitten, [employer]: [address], [address], [place] [address], Ph. Attender: Christen Whitten [facility] Medical 09/09/2020 12:00:00 AM EST JONATAN ([facility]) Christen Whitten, [employer]: [address], [address], [place] [address], Ph. Attender: Christen Whitten [facility] Medical 09/09/2020 12:00:00 AM EST JONATAN ([facility]) Christen Whitten, [employer]: [address], [place] [address], Ph. Attender: Christen Whtiten [facility] Medical 09/09/2020 12:00:00 AM EST JONATAN ([facility]) Christen Whitten, [employer]: [address], [address], [place] [address], Ph. Attender: Christen Whitten [facility] Medical 09/09/2020 12:00:00 AM EST JONATAN ([facility]) Christen Whitten, [employer]: [address], [place] [address], Ph. Attender: Christen Whitten [facility] Medical 09/09/2020 12:00:00 AM EST JONATAN ([facility]) Christen Whitten, [employer]: [address], [place] [address], Ph. Attender: Christen Whitten [facility] Medical 09/09/2020 12:00:00 AM EST JONATAN ([facility]) Christen Whitten, [employer]: [address], [place] [address], Ph. Attender: Christen Whitten [facility] Medical 09/09/2020 12:00:00 AM EST JONATAN ([facility]) Christen Whitten, [employer]: [address], [place] [address], Ph. Attender: Christen Whitten [facility] Medical 09/09/2020 12:00:00 AM EST JONATAN ([facility]) Christen Whitten, [employer]: [address], [place] [address], Ph. Attender: Christen Whitten [facility] Medical 09/09/2020 12:00:00 AM EST JONATAN ([facility]) Christen Whitten, [employer]: [address], [place] [address], Ph. Attender: Christen Whitten [facility] Medical 09/09/2020 12:00:00 AM EST JONATAN ([facility]) Christen Whitten, [employer]: [address], [place] [address], Ph. Attender: Christen Whitten [facility] Medical 09/09/2020 12:00:00 AM EST JONATAN ([facility]) Christen Whitten, [employer]: [address], [place] [address], Ph. Attender: Christen Whitten [facility] Medical 09/02/2020 12:00:00 AM EST JONATAN ([facility]) Christen Whitten, [employer]: [address], [place] [address], Ph. Attender: Christen Whitten [facility] Medical 09/02/2020 12:00:00 AM EST JONATAN ([facility]) Christen Whitten, [employer]: [address], [place] [address], Ph. Attender: Christen Whitten [facility] Medical 09/02/2020 12:00:00 AM EST JONATAN ([facility]) Christen Whitten, [employer]: [address], [place] [address], Ph. Attender: Christen Whitten [facility] Medical 09/02/2020 12:00:00 AM EST JONATAN ([facility]) Christen Whitten, [employer]: [address], [place] [address], Ph. Attender: Christen Whitten [facility] Medical 09/02/2020 12:00:00 AM EST JONATAN ([facility]) Christen Whitten, [employer]: [address], [place] [address], Ph. Attender: Christen Whitten [facility] Medical 09/02/2020 12:00:00 AM EST JONATAN ([facility]) Christen Whitten, [employer]: [address], [place] [address], Ph. Attender: Christen Whitten [facility] Medical 09/02/2020 12:00:00 AM EST JONATAN ([facility]) Christen Whitten, [facility]: [address], [place] [address], Ph. Attender: Christen Whitten [facility] Medical 09/02/2020 12:00:00 AM EST JONATAN ([facility]) Christen Whitten, [facility]: [address], [place] [address], Ph. Attender: Christen Whitten [facility] Medical 09/02/2020 12:00:00 AM EST JONATAN ([facility]) Christen Whitten, [facility]: [address], [place] [address], Ph. Attender: Christen Whitten [facility] Medical 09/02/2020 12:00:00 AM EST JONATAN ([facility]) Christen Whitten, [facility]: [address], [place] [address], Ph. Attender: Christen Whitten [facility] Medical 09/02/2020 12:00:00 AM EST JONATAN ([facility]) Christen Whitten, [facility]: [address], [address], [place] [address], Ph. Attender: Christen Whitten [facility] Medical 09/02/2020 12:00:00 AM EST JONATAN ([facility]) Christen Whitten, [facility]: [address], [address], [place] [address], Ph. Attender: Christen Whitten [facility] Medical 09/02/2020 12:00:00 AM EST JONATAN ([facility]) Christen Whitten, [facility]: [address], [address], [place] [address], Ph. Attender: Christen Whitten [facility] Medical 09/02/2020 12:00:00 AM EST JONATAN ([facility]) Christen Whitten, [facility]: [address], [address], [place] [address], Ph. Attender: Christen Whitten [facility] Medical 09/02/2020 12:00:00 AM EST JONATAN ([facility]) Christen Whitten, [facility]: [address], [address], [place] [address], Ph. Attender: Christen Whitten [facility] Medical 09/02/2020 12:00:00 AM EST JONATAN ([facility]) Christen Whitten, [facility]: [address], [address], [place] [address], Ph. Attender: Christen Whitten [facility] Medical 09/02/2020 12:00:00 AM EST JONATAN ([facility]) Christen Whitten, [facility]: [address], [address], [place] [address], Ph. Attender: Christen Whitten [facility] Medical 09/02/2020 12:00:00 AM EST JONATAN ([facility]) Christen Whitten, [facility]: [address], [address], [place] [address], Ph. Attender: Christen Whitten [facility] Medical 09/02/2020 12:00:00 AM EST JONATAN ([facility]) Christen Whitten, [facility]: [address], [address], [place] [address], Ph. Attender: Christen Whitten [facility] Medical 09/02/2020 12:00:00 AM EST JONATAN ([facility]) Christen Whitten, [facility]: [address], [address], [place] [address], Ph. Attender: Christen Whitten [facility] Medical 09/02/2020 12:00:00 AM EST JONATAN ([facility]) Christen Whitten, [facility]: [address], [address], [place] [address], Ph. Attender: Christen Whitten [facility] Medical 09/02/2020 12:00:00 AM EST JONATAN ([facility]) Christen Whitten, [facility]: [address], [address], [place] [address], Ph. Attender: Christen Whitten [facility] Medical 09/02/2020 12:00:00 AM EST JONATAN ([facility]) Christen Whitten, [facility]: [address], [address], [place] [address], Ph. Attender: Christen Whitten [facility] Medical 09/02/2020 12:00:00 AM EST JONATAN ([facility]) IAM [facility]: [address], [place] [address], Ph. Attender: Robyn VITALE [facility] Medical 08/12/2020 12:00:00 AM EST JONATAN ([facility]) Christen Whitten, [facility] [facility]: [address], [address], [place] [address], Ph. Attender: Christen Whitten [facility] Medical 08/12/2020 12:00:00 AM EST JONATAN ([facility]) [facility] [address], [place] [address], Ph. Attender: Robyn Medina [facility] Medical 08/12/2020 12:00:00 AM EST JONATAN ([facility]) Christen Whitten, [facility]: [address], [address], [place] [address], Ph. Attender: Christen Whitten [facility] Medical 08/12/2020 12:00:00 AM EST JONATAN ([facility]) DARRYN Woo: [address], [place] [address], Ph. Attender: Robyn Medina [facility] Medical 08/12/2020 12:00:00 AM EST JONATAN ([facility]) Christen Whitten, [facility] [employer]: [address], [address], [place] [address], Ph. Attender: Christen Whitten [facility] Medical 08/12/2020 12:00:00 AM EST JONATAN ([facility]) DARRYN Woo: [address], [place] [address], Ph. Attender: Robyn Medina [facility] Medical 08/12/2020 12:00:00 AM EST JONATAN ([facility]) Christen Whitten, [facility] [employer] [facility]: [address], [address], [place] [address], Ph. Attender: Christen Whitten [facility] Medical 08/12/2020 12:00:00 AM EST JONATAN ([facility]) [facility]: [address], [place] [address], Ph. Attender: Robyn Medina [facility] Medical 08/12/2020 12:00:00 AM EST JONATAN ([facility]) Christen Whitten, [facility] [facility]: [address], [address], [place] [address], Ph. Attender: Christen Whitten [facility] Medical 08/12/2020 12:00:00 AM EST JONATAN ([facility]) DARRYN Woo: [address], [place] [address], Ph. Attender: Robyn Medina [facility] Medical 08/12/2020 12:00:00 AM EST JONATAN ([facility]) Christen Whitten, [facility] [employer] [facility]: [address], [address], [place] [address], Ph. Attender: Christen Whitten [facility] Medical 08/12/2020 12:00:00 AM EST JONATAN ([facility]) DARRYN Woo: [address], [place] [address], Ph. Attender: Robyn Medina [facility] Medical 08/12/2020 12:00:00 AM EST JONATAN ([facility]) Christen Whitten, [facility] [employer]: [address], [address], [place] [address], Ph. Attender: Christen Whitten [facility] Medical 08/12/2020 12:00:00 AM EST JONATAN ([facility]) Robyn Medina [facility]: [address], [place] [address], Ph. Attender: Robyn Medina [facility] Medical 08/12/2020 12:00:00 AM EST JONATAN ([facility]) Christen Whitten, [facility] [employer] [facility]: [address], [address], [place] [address], Ph. Attender: Christen Whitten [facility] Medical 08/12/2020 12:00:00 AM EST JONATAN ([facility]) DARRYN Woo: [address], [place] [address], Ph. Attender: Robyn Medina [facility] Medical 08/12/2020 12:00:00 AM EST JONATAN ([facility]) Christen Whitten, [employer] [facility]: [address], [address], [place] [address], Ph. Attender: Christen Whitten [facility] Medical 08/12/2020 12:00:00 AM EST JONATAN ([facility]) DARRYN WooBC: [address], [place] [address], Ph. Attender: Robyn Medina [facility] Medical 08/12/2020 12:00:00 AM EST JONATAN ([facility]) Christen Whitten, [employer] [facility]: [address], [address], [place] [address], Ph. Attender: Christen Whitten [facility] Medical 08/12/2020 12:00:00 AM EST JONATAN ([facility]) Robyn Medina [facility]: [address], [place] [address], Ph. Attender: Robyn Medina [facility] Medical 08/12/2020 12:00:00 AM EST JONATAN ([facility]) Christen Whitten, [employer] [facility]: [address], [address], [place] [address], Ph. Attender: Christen Whitten [facility] Medical 08/12/2020 12:00:00 AM EST JONATAN ([facility]) [facility]: [address], [place] [address], Ph. Attender: Robyn Medina [facility] Medical 08/12/2020 12:00:00 AM EST JONATAN ([facility]) Christen Whitten, [employer] [facility]: [address], [address], [place] [address], Ph. Attender: Christen Whitten [facility] Medical 08/12/2020 12:00:00 AM EST JONATAN ([facility]) Robyn Medina [facility]: [address], [place] [address], Ph. Attender: Robyn Medina [facility] Medical 08/12/2020 12:00:00 AM EST JONATAN ([facility]) Christen Whitten, [employer] [facility]: [address], [address], [place] [address], Ph. Attender: Christen Ronnyalmazhiginio [facility] Medical 08/12/2020 12:00:00 AM EST JONATAN ([facility]) Robyn Medina [facility]: [address], [place] [address], Ph. Attender: Robyn Medina [facility] Medical 08/12/2020 12:00:00 AM EST JONATAN ([facility]) Chirsten Whitten, [employer] [facility]: [address], [address], [place] [address], Ph. Attender: Christen Ronnyalmazhiginio [facility] Medical 08/12/2020 12:00:00 AM EST JONATAN ([facility]) Robyn Medina [facility]: [address], [place] [address], Ph. Attender: Robyn Medina [facility] Medical 08/12/2020 12:00:00 AM EST JONATAN ([facility]) Christen Whitten, [employer] [facility]: [address], [address], [place] [address], Ph. Attender: Christen Ronnyalmazhiginio [place] [facility] Medical 08/12/2020 12:00:00 AM EST JONATAN ([facility]) Robyn Medina [facility]: [address], [place] [address], Ph. Attender: Robyn Medina [facility] Medical 08/12/2020 12:00:00 AM EST JONATAN ([facility]) Christen Martinezantonio, [employer] [facility]: [address], [address], [place] [address], Ph. Attender: Christen Maria Dolores [facility] Medical 08/12/2020 12:00:00 AM EST JONATAN ([facility]) Robyn Medina [facility]: [address], [place] [address], Ph. Attender: Robyn Medina [facility] Medical 08/12/2020 12:00:00 AM EST JONATAN ([facility]) Christen Ronnyalmazhiginio, [employer]: [address], [address], [place] [address], Ph. Attender: Christen Whitten [facility] Medical 08/12/2020 12:00:00 AM EST JONATAN ([facility]) Robyn Medina [facility]: [address], [place] [address], Ph. Attender: Robyn Medina [facility] Medical 08/12/2020 12:00:00 AM EST JONATAN ([facility]) Christen Maria Dolores, [employer] [facility]: [address], [address], [place] [address], Ph. Attender: Christen Whitten [facility] Medical 08/12/2020 12:00:00 AM EST JONATAN ([facility]) [facility]: [address], [place] [address], Ph. Attender: Robyn Medina [facility] Medical 08/12/2020 12:00:00 AM EST JONATAN ([facility]) Christen Whitten, [employer]: [address], [address], [place] [address], Ph. Attender: Christen Whitten [facility] Medical 08/12/2020 12:00:00 AM EST JONATAN ([facility]) [facility]: [address], [place] [address], Ph. Attender: Robyn Medina [facility] Medical 08/12/2020 12:00:00 AM EST JONATAN ([facility]) Christen Whitten, [employer] [facility]: [address], [address], [place] [address], Ph. Attender: Christen Whitten [facility] Medical 08/12/2020 12:00:00 AM EST JONATAN ([facility]) [facility]: [address], [place] [address], Ph. Attender: Robyn Medina [facility] Medical 08/12/2020 12:00:00 AM EST JONATAN ([facility]) Christen Burchhiginio, [employer] [facility]: [address], [address], [place] [address], Ph. Attender: Christen Whitten [facility] Medical 08/12/2020 12:00:00 AM EST JONATAN ([facility]) Robyn Medina [facility]: [address], [place] [address], Ph. Attender: Robyn Medina [facility] Medical 08/12/2020 12:00:00 AM EST JONATAN ([facility]) Christen COLIN Wh[facility]: [address], [address], [place] [address], Ph. Attender: Christen Ronnyalmazhiginio [facility] Medical 08/12/2020 12:00:00 AM EST JONATAN ([facility]) [facility]: [address], [place] [address], Ph. Attender: Robyn Medina [facility] Medical 08/12/2020 12:00:00 AM EST JONATAN ([facility]) Christen COLIN WhittenW[facility]: [address], [address], [place] [address], Ph. Attender: Christen Maria Dolores [facility] Medical 08/12/2020 12:00:00 AM EST JONATAN ([facility]) Robyn Medina [facility]: [address], [place] [address], Ph. Attender: Robyn Medina [facility] Medical 08/12/2020 12:00:00 AM EST JONATAN ([facility]) Christen Whitten, [employer] [facility]: [address], [place] [address], Ph. Attender: Christen Whitten [facility] Medical 08/12/2020 12:00:00 AM EST JONATAN ([facility]) Robyn Medina, [facility]: [address], [place] [address], Ph. Attender: Robyn Medina [facility] Medical 08/12/2020 12:00:00 AM EST JONATAN ([facility]) Christen Whitten, [employer] [facility]: [address], [place] [address], Ph. Attender: Christen Whitten [facility] Medical 08/12/2020 12:00:00 AM EST JONATAN ([facility]) Christen Whitten, [employer] [facility]: [address], [address], [place] [address], Ph. Attender: Christen Whitten [facility] Medical 08/04/2020 12:00:00 AM EST JONATAN ([facility]) Christen Whitten, [employer] [facility]: [address], [place] [address], Ph. Attender: Christen Whitten [facility] Medical 08/04/2020 12:00:00 AM EST JONATAN ([facility]) Christen Whitten, [employer] [facility]: [address], [place] [address], Ph. Attender: Christen Whitten [facility] Medical 08/04/2020 12:00:00 AM EST JONATAN ([facility]) Christen Whitten, [employer] [facility]: [address], [address], [place] [address], Ph. Attender: Christen Whitten [facility] Medical 08/04/2020 12:00:00 AM EST JONATAN ([facility]) Christen Whitten, [employer] [facility]: [address], [place] [address], Ph. Attender: Christen Whitten [facility] Medical 08/04/2020 12:00:00 AM EST JONATAN ([facility]) Christen Whitten, [employer] [facility]: [address], [address], [place] [address], Ph. Attender: Christen Whitten [facility] Medical 08/04/2020 12:00:00 AM EST JONATAN ([facility]) Christen Whitten, [employer] [facility]: [address], [place] [address], Ph. Attender: Christen Whitten [facility] Medical 08/04/2020 12:00:00 AM EST JONATAN ([facility]) Christen Whitten, [facility]: [address], [address], [place] [address], Ph. Attender: Christen Whitten [facility] Medical 08/04/2020 12:00:00 AM EST JONATAN ([facility]) Christen Whitten, [facility] [employer]: [address], [place] [address], Ph. Attender: Christen Whitten [facility] Medical 08/04/2020 12:00:00 AM EST JONATAN ([facility]) Christen Whitten, [facility]: [address], [place] [address], Ph. Attender: Christen Whitten [facility] Medical 08/04/2020 12:00:00 AM EST JONATAN ([facility]) Christen Whitten, [facility] [employer] [facility]: [address], [place] [address], Ph. Attender: Christen Whitten [facility] Medical 08/04/2020 12:00:00 AM EST JONATAN ([facility]) Christen Whitten, [facility] [employer] [facility]: [address], [place] [address], Ph. Attender: Christen Whitten [facility] Medical 08/04/2020 12:00:00 AM EST JONATAN ([facility]) Christen Whitten, [facility]: [address], [address], [place] [address], Ph. Attender: Christen Whitten [facility] Medical 08/04/2020 12:00:00 AM EST JONATAN ([facility]) Christen Whitten, [facility]: [address], [address], [place] [address], Ph. Attender: Christen Whitten [facility] Medical 08/04/2020 12:00:00 AM EST JONATAN ([facility]) Christen Whitten, [facility]: [address], [address], [place] [address], Ph. Attender: Christen Whitten [facility] Medical 08/04/2020 12:00:00 AM EST JONATAN ([facility]) Christen Whitten, [facility]: [address], [address], [place] [address], Ph. Attender: Christen Whitten [facility] Medical 08/04/2020 12:00:00 AM EST JONATAN ([facility]) Christen Whitten, [facility]: [address], [address], [place] [address], Ph. Attender: Christen Whitten [facility] Medical 08/04/2020 12:00:00 AM EST JONATAN ([facility]) Christen Whitten, [facility]: [address], [address], [place] [address], Ph. Attender: Christen Whitten [facility] Medical 08/04/2020 12:00:00 AM EST JONATAN ([facility]) Christen Whitten, [facility]: [address], [address], [place] [address], Ph. Attender: Christen Whitten [facility] Medical 08/04/2020 12:00:00 AM EST JONATAN ([facility]) Christen Whitten, [facility]: [address], [address], [place] [address], Ph. Attender: Christen Whitten [facility] Medical 08/04/2020 12:00:00 AM EST JONATAN ([facility]) Christen Whitten, [facility]: [address], [address], [place] [address], Ph. Attender: Christen Whitten [facility] Medical 08/04/2020 12:00:00 AM EST JONATAN ([facility]) Christen Whitten, [facility]: [address], [address], [place] [address], Ph. Attender: Christen Whitten [facility] Medical 08/04/2020 12:00:00 AM EST JONATAN ([facility]) Christen Whitten, [facility]: [address], [address], [place] [address], Ph. Attender: Christen Whitten [facility] Medical 08/04/2020 12:00:00 AM EST JONATAN ([facility]) Christen Whitten, [facility]: [address], [address], [place] [address], Ph. Attender: Christen Whitten [facility] Medical 08/04/2020 12:00:00 AM EST JONATAN ([facility]) Christen Whitten, [facility]: [address], [place] [address], Ph. Attender: Christen Whitten [facility] Medical 08/04/2020 12:00:00 AM EST JONATAN ([facility]) Christen Whitten, [facility]: [address], [place] [address], Ph. Attender: Christen Whitten [facility] Medical 08/04/2020 12:00:00 AM EST JONATAN ([facility]) Christen Whitten, [facility]: [address] [place] [address], Ph. Attender: Christen Whitten [facility] Medical 07/30/2020 12:00:00 AM EST JONATAN ([facility]) Christen Whitten, [facility]: [address] [place] [address], Ph. Attender: Christen Whitten [facility] Medical 07/30/2020 12:00:00 AM EST JONATAN ([facility]) Christen hWitten, [employer] [employer]: [address] [place] [address], Ph. Attender: Christen Whitten [facility] Medical 07/30/2020 12:00:00 AM EST JONATAN ([facility]) Christen Whitten, [facility]: [address] [place] [address], Ph. Attender: Christen Whitten [place] [facility] Medical 07/30/2020 12:00:00 AM EST JONATAN ([facility]) Christen Ronnyalmazhiginio, [facility] [employer]: [address] [place] [address], Ph. Attender: Christen Maria Dolores [facility] Medical 07/30/2020 12:00:00 AM EST JONATAN ([facility]) Christen Maria Dolores, [facility]: [address] [place] [address], Ph. Attender: Christen Maria Dolores [facility] Medical 07/30/2020 12:00:00 AM EST JONATAN ([facility]) Christen Maria Dolores, [employer] [facility]: [address] [place] [address], Ph. Attender: Christen Maria Dolores [facility] Medical 07/30/2020 12:00:00 AM EST JONATAN ([facility]) Christen Ronnyalmazhiginio, [employer] [employer] [facility]: [address] [place] [address], Ph. Attender: Christen Whitten [facility] [facility] 07/30/2020 12:00:00 AM EST JONATAN ([facility]) Christen Maria Dolores, [employer]: [address] [place] [address], Ph. Attender: Christen Whitten [facility] Medical 07/30/2020 12:00:00 AM EST JONATAN ([facility]) Christen Maria Dolores, [employer]: [address] , [place] [address], Ph. Attender: Christen Whitten [facility] Medical 07/30/2020 12:00:00 AM EST JONATAN ([facility]) Christen Whitten, [employer]: [address] [place] [address], Ph. Attender: Christen Whitten [facility] Medical 07/30/2020 12:00:00 AM EST JONATAN ([facility]) Christen Whitten, [employer]: [address] [place] [address], Ph. Attender: Christen Whitten [facility] Medical 07/30/2020 12:00:00 AM EST JONATAN ([facility]) Christen Burchhiginio, [employer]: [address] [place] [address], Ph. Attender: Christen Burchhiginio [facility] Medical 07/30/2020 12:00:00 AM EST JONATAN ([facility]) Christen Whitten, [employer]: [address] [place] [address], Ph. Attender: Christen Ronnyalmazhiginio [facility] Medical 07/30/2020 12:00:00 AM EST JONATAN ([facility]) Christen Burchhiginio, [employer]: [address] [place] [address], Ph. Attender: Christen Juanelisabethhiginio [facility] Medical 07/30/2020 12:00:00 AM EST JONATAN ([facility]) Christen Maria Dolores, [employer]: [address] [place] [address], Ph. Attender: Christen Whitten [facility] Medical 07/30/2020 12:00:00 AM EST JONATAN ([facility]) Christen Whitten, [employer]: [address] , [place] [address], Ph. Attender: Christen Whitten [facility] Medical 07/30/2020 12:00:00 AM EST JONATAN ([facility]) Christen Whitten, [employer]: [address] , [place] [address], Ph. Attender: Christen Whitten [facility] Medical 07/30/2020 12:00:00 AM EST JONATAN ([facility]) Christen Ronnyalmazhiginio, [employer]: [address] , [place] [address], Ph. Attender: Christen Martineznikkoalmazhiginio [facility] Medical 07/30/2020 12:00:00 AM EST JONATAN ([facility]) Christen Whitten, [employer]: [address] [place] [address], Ph. Attender: Christen Ronnyalmazhiginio [facility] Medical 07/30/2020 12:00:00 AM EST JONATAN ([facility]) Christen Burchhiginio, [employer]: [address] , [place] [address], Ph. Attender: Christen Ronnyalmazo [facility] Medical 07/30/2020 12:00:00 AM EST JONATAN ([facility]) Christen Maria Dolores, [employer]: [address] , [place] [address], Ph. Attender: Christen Whitten [facility] Medical 07/30/2020 12:00:00 AM EST JONATAN ([facility]) Christen Whitten, [employer]: [address] [place] [address], Ph. Attender: Christen Whitten [facility] Medical 07/30/2020 12:00:00 AM EST JONATAN ([facility]) Christen Whitten, [employer]: [address] [place] [address], Ph. Attender: Christen Whitten [facility] Medical 07/30/2020 12:00:00 AM EST JONATAN ([facility]) Christen Whitten, [employer]: [address] [place] [address], Ph. Attender: Christen Whitten [facility] Medical 07/30/2020 12:00:00 AM EST JONATAN ([facility]) Christen Whitten, [employer]: [address] [place] [address], Ph. Attender: Christen Burcho [facility] Medical 07/30/2020 12:00:00 AM EST JONATAN ([facility]) Christen Whitten, [employer]: [address] [place] [address], Ph. Attender: Christen Whitten [facility] Medical 07/30/2020 12:00:00 AM EST JONATAN ([facility]) Christen Ronnyalmazhiginio, [employer]: [address], [place] [address], Ph. Attender: Christen Whitten [facility] Medical 07/07/2020 12:00:00 AM EST JONATAN ([facility]) Christen Whitten, [employer]: [address], [place] [address], Ph. Attender: Christen Whitten [facility] Medical 07/07/2020 12:00:00 AM EST JONATAN ([facility]) Christen Whitten, [employer]: [address], [place] [address], Ph. Attender: Christen Whitten [facility] Medical 07/07/2020 12:00:00 AM EST JONATAN ([facility]) Christen Whitten, [employer]: [address], [place] [address], Ph. Attender: Christen Whitten [facility] Medical 07/07/2020 12:00:00 AM EST JONATNA ([facility]) Christen Whitten, [employer]: [address], [place] [address], Ph. Attender: Christen Whitten [facility] Medical 07/07/2020 12:00:00 AM EST JONATAN ([facility]) Christen Whitten, [employer]: [address], [place] [address], Ph. Attender: Christen Whitten [facility] Medical 07/07/2020 12:00:00 AM EST JONATAN ([facility]) Christen Whitten, [employer]: [address], [place] [address], Ph. Attender: Christen Whitten [facility] Medical 07/07/2020 12:00:00 AM EST JONATAN ([facility]) Christen Whitten, [employer]: [address], [place] [address], Ph. Attender: Christen Whitten [facility] Medical 07/07/2020 12:00:00 AM EST JONATAN ([facility]) Christen Whitten, [employer]: [address], [place] [address], Ph. Attender: Christen Whitten [facility] Medical 07/07/2020 12:00:00 AM EST JONATAN ([facility]) Christen Whitten, [employer]: [address], [place] [address], Ph. Attender: Christen Whitten [facility] Medical 07/07/2020 12:00:00 AM EST JONATAN ([facility]) Christen Whitten, [employer]: [address], [place] [address], Ph. Attender: Christen Whitten [facility] Medical 07/07/2020 12:00:00 AM EST JONATAN ([facility]) Christen Whitten, [employer]: [address], [place] [address], Ph. Attender: Christen Whitten [facility] Medical 07/07/2020 12:00:00 AM EST JONATAN ([facility]) Christen Whitten, [employer]: [address], [place] [address], Ph. Attender: Christen Whitten [facility] Medical 07/07/2020 12:00:00 AM EST JONATAN ([facility]) Christen Whitten, [employer]: [address], [place] [address], Ph. Attender: Christen Whitten [facility] Medical 07/07/2020 12:00:00 AM EST JONATAN ([facility]) Christen Whitten, [employer]: [address], [place] [address], Ph. Attender: Christen Whitten [facility] Medical 07/07/2020 12:00:00 AM EST JONATAN ([facility]) Christen Whitten, [employer]: [address], [place] [address], Ph. Attender: Christen Whitten [facility] Medical 07/07/2020 12:00:00 AM EST JONATAN ([facility]) Christen Whitten, [employer]: [address], [place] [address], Ph. Attender: Christen Whitten [facility] Medical 07/07/2020 12:00:00 AM EST JONATAN ([facility]) Christen Whitten, [employer]: [address], [place] [address], Ph. Attender: Christen Whitten [facility] Medical 07/07/2020 12:00:00 AM EST JONATAN ([facility]) Christen Whitten, [employer]: [address], [place] [address], Ph. Attender: Christen Whitten [facility] Medical 07/07/2020 12:00:00 AM EST JONATAN ([facility]) Christen Whitten, [employer]: [address], [place] [address], Ph. Attender: Christen Whitten [facility] Medical 07/07/2020 12:00:00 AM EST JONATAN ([facility]) Christen Whitten, [employer]: [address], [place] [address], Ph. Attender: Christen Whitten [facility] Medical 07/07/2020 12:00:00 AM EST JONATAN ([facility]) Christen Whitten, [employer]: [address], [place] [address], Ph. Attender: Christen Whitten [facility] Medical 07/07/2020 12:00:00 AM EST JONATAN ([facility]) Christen Whitten, [employer]: [address], [place] [address], Ph. Attender: Christen Whitten [facility] Medical 07/07/2020 12:00:00 AM EST JONATAN ([facility]) Christen Whitten, [employer]: [address], [place] [address], Ph. Attender: Christen Whitten [facility] Medical 07/07/2020 12:00:00 AM EST JONATAN ([facility]) Christen Whitten, [employer]: [address], [place] [address], Ph. Attender: Christen Whitten [facility] Medical 07/07/2020 12:00:00 AM EST JONATAN ([facility]) Christen Whitten, [employer]: [address], [place] [address], Ph. Attender: Christen Whitten [facility] Medical 07/07/2020 12:00:00 AM EST JONATAN ([facility]) Christen Whitten, [employer]: [address], [place] [address], Ph. Attender: Christen Ronnycarmel [facility] Medical 07/07/2020 12:00:00 AM EST JONATAN ([facility]) Christen Whitten, [employer]: [address], [place] [address], Ph. Attender: Christen Whitten [place] [facility] Medical 07/07/2020 12:00:00 AM EST JONATAN ([facility]) Outpatient Attender: IAM VITALE FP 06/18/2020 12:04:00 P M EDT [facility] Outpatient Attender: Rboyn VITALE 06/05/2020 11:0 1:01 AM EDT [facility] Outpatient Attender: IAM VITALE FP 06/02/2020 11:18:00 A M EDT [facility] Outpatient Attender: Robyn VITALE FP 05/23/2020 11:3 9:00 AM EDT [facility] Attender: Robyn VITALE FP 05/20/2020 10:1 8:01 AM EDT [facility] Attender: Robyn VITALE FP 05/16/2020 07:2 0:01 AM EDT [facility] Attender: Robyn VITALE FP 05/11/2020 04:3 7:00 PM EDT [facility] Outpatient Attender: IAM VITALE FP 05/11/2020 04:36:59 P M EDT [facility] Outpatient Attender: IAM VITALE FP 05/11/2020 04:36:01 P M EDT [facility] Outpatient Attender: Robyn VITALE FP 05/11/2020 04:3 6:01 PM EDT [facility] Outpatient Attender: IAM VITALE FP 05/09/2020 07:37:01 A M EDT [facility] Outpatient Attender: IAM VITALE FP 05/06/2020 09:47:00 A M EDT [facility] Outpatient Attender: Billy Valenzuela MD Main office - [place] 05/01/2020 11:00:00 AM EDT [facility] ([facility] [place]) Outpatient Attender: Robyn VITALE FP 04/14/2020 11:1 4:02 AM EDT [facility] Outpatient Attender: IAM JIMENES 04/08/2020 02:09:01 P M EDT [facility] Immunizations Vaccine Date Status Description Data Source(s) COVID-19 vaccine, vector-nr, rS-Ad26, PF, 0.5 mL 01/20/2021 02:36:13 PM EDT completed .5 mL [place] ([facility]) COVID-19 vaccine, vector-nr, rS-Ad26, PF, 0.5 mL 01/20/2021 02:36:13 PM EDT completed .5 mL [facility] ([facility]) COVID-19 vaccine, vector-nr, rS-Ad26, PF, 0.5 mL 01/20/2021 02:36:13 PM EDT completed .5 mL [place] ([facility]) COVID-19 vaccine, vector-nr, rS-Ad26, PF, 0.5 mL 01/20/2021 02:36:13 PM EDT completed .5 mL [place] ([facility]) COVID-19 vaccine, vector-nr, rS-Ad26, PF, 0.5 mL 01/20/2021 02:36:13 PM EDT completed .5 mL [place] ([facility]) COVID-19 vaccine, vector-nr, rS-Ad26, PF, 0.5 mL 01/20/2021 02:36:13 PM EDT completed .5 mL [place] ([facility]) COVID-19 VACCINE [place] 01/20/2021 12:00:00 AM EDT completed [facility] Vaccine Series Complete: YESThis Data wa s Submitted to [facility] Via [employer]. Medications Medication Brand Name Start Date Product Form Dose Route Admi nistrative Instructions Pharmacy Instructions Status Indications Reaction Description Data Source(s) ipratropium bromide 42 mcg (0.06 %) nasa l spray USE TWO SPRAYS IN EACH NOSTRIL ONCE DAILY 867993 01/13/2021 12:00:00 AM EDT compl eted ipratropium bromide 0.042 MG/ACTUAT Metered Dose Nasal [place] ([facility]) ipratropium bromide 42 mcg (0.06 %) nasa l spray USE TWO SPRAYS IN EACH NOSTRIL ONCE DAILY 2800022601/13/2021 12:00:00 AM EDT compl eted ipratropium bromide 0.042 MG/ACTUAT Metered Dose Nasal [place] [facility] ([facility]) ipratropium bromide 42 mcg (0.06 %) nasa l spray USE TWO SPRAYS IN EACH NOSTRIL ONCE DAILY 2800022601/13/2021 12:00:00 AM EDT compl eted ipratropium bromide 0.042 MG/ACTUAT Metered Dose Nasal [place] J[facility]ATAN ([facility]) ipratropium bromide 42 mcg (0.06 %) nasa l spray USE TWO SPRAYS IN EACH NOSTRIL ONCE DAILY 2800022601/13/2021 12:00:00 AM EDT compl eted ipratropium bromide 0.042 MG/ACTUAT Metered Dose Nasal [place] [facility]AN ([facility]) ipratropium bromide 42 mcg (0.06 %) nasa l spray USE TWO SPRAYS IN EACH NOSTRIL ONCE DAILY 2800022601/13/2021 12:00:00 AM EDT compl eted ipratropium bromide 0.042 MG/ACTUAT Metered Dose Nas[place] [facility]ATAN ([facility]) ipratropium bromide 42 mcg (0.06 %) nasa l spray USE TWO SPRAYS IN EACH NOSTRIL ONCE DAILY 2800022601/13/2021 12:00:00 AM EDT compl eted ipratropium bromide 0.042 MG/ACTUAT Metered Dose Nas[place] J[facility]ATAN ([facility]) ipratropium bromide 42 mcg (0.06 %) nasa l spray USE TWO SPRAYS IN EACH NOSTRIL ONCE DAILY 2800022601/13/2021 12:00:00 AM EDT compl eted ipratropium bromide 0.042 MG/ACTUAT Metered Dose [place] ([facility]) Ondansetron 4 MG Disintegrating Oral Tablet Ondansetron 05/01/2020 12:00:00 AM EDT ORAL active MED[facility] ([facility]) benzonatate 100 MG Oral Capsule benzonat ate 100 mg capsule TAKE ONE CAPSULE BY MOUTH THREE TIMES DAILY NEEDED FOR COUGH benzonatate 100 mg capsule TAKE ONE CAPSULE BY MOUTH THREE TIMES DAILY NEEDED FOR COUGH completed benzonatate 100 MG Oral Capsule JONATAN ([facility]) Doxycycline Monohydrate 100 MG Oral Caps ule doxycycline monohydrate 100 mg capsule TAKE ONE CAPSULE BY MOUTH TWICE DAILY FOR 10 DAYS doxycycline monohydrate 100 mg capsule TAKE ONE CAPSULE BY MOUTH TWICE DAILY FOR 10 DAYS completed doxycycline mo nohydrate 100 MG Oral Capsule JONATAN ([facility]) Doxycycline Monohydrate 100 MG Oral Caps ule doxycycline monohydrate 100 mg capsule TAKE ONE CAPSULE BY MOUTH TWICE DAILY FOR 10 DAYS doxycycline monohydrate 100 mg capsule TAKE ONE CAPSULE BY MOUTH TWICE DAILY FOR 10 DAYS completed doxycycline mo nohydrate 100 MG Oral Capsule J[facility]AN ([facility]) Doxycycline Monohydrate 100 MG Oral Caps ule doxycycline monohydrate 100 mg capsule TAKE ONE CAPSULE BY MOUTH TWICE DAILY FOR 10 DAYS doxycycline monohydrate 100 mg capsule TAKE ONE CAPSULE BY MOUTH TWICE DAILY FOR 10 DAYS completed doxycycline mo nohydrate 100 MG Oral Capsule [facility]) Doxycycline Monohydrate 100 MG Oral Caps ule doxycycline monohydrate 100 mg capsule TAKE ONE CAPSULE BY MOUTH TWICE DAILY FOR 10 DAYS doxycycline monohydrate 100 mg capsule TAKE ONE CAPSULE BY MOUTH TWICE DAILY FOR 10 DAYS completed doxycycline mo nohydrate 100 MG Oral Capsule [place] ([facility]) Prednisone 10 MG Oral Tablet prednisone 10 mg tablet TAKE THREE TABLETS BY MOUTH ONCE DAILY WITH FOOD prednisone 10 mg tablet TAKE THREE TABLE TS BY MOUTH ONCE DAILY WITH FOOD completed predni sone 10 MG Oral Tablet [facility]) Doxycycline Monohydrate 100 MG Oral Caps ule doxycycline monohydrate 100 mg capsule TAKE ONE CAPSULE BY MOUTH TWICE DAILY FOR 10 DAYS doxycycline monohydrate 100 mg capsule TAKE ONE CAPSULE BY MOUTH TWICE DAILY FOR 10 DAYS completed doxycycline mo nohydrate 100 [facility] ben[facility] MG Oral Capsule benzonat ate 100 mg capsule TAKE ONE CAPSULE BY MOUTH THREE TIMES DAILY NEEDED FOR COUGH benzonatate 100 mg capsule TAKE ONE CAPSULE BY MOUTH THREE TIMES DAILY NEEDED FOR COUGH completed benzonatate 100 MG Oral Capsule [facility]) Prednisone 10 MG Oral Tablet prednisone 10 mg tablet TAKE THREE TABLETS BY MOUTH ONCE DAILY WITH FOOD prednisone 10 mg tablet TAKE THREE TABLE TS BY MOUTH ONCE DAILY WITH FOOD completed predni sone 10 MG Oral Tablet [facility] ([facility]) Prednisone 10 MG Oral Tablet prednisone 10 mg tablet TAKE THREE TABLETS BY MOUTH ONCE DAILY WITH FOOD prednisone 10 mg tablet TAKE THREE TABLE TS BY MOUTH ONCE DAILY WITH FOOD completed predni sone 10 MG Oral Tablet [facility] ([facility]) Prednisone 10 MG Oral Tablet prednisone 10 mg tablet TAKE THREE TABLETS BY MOUTH ONCE DAILY WITH FOOD prednisone 10 mg tablet TAKE THREE TABLE TS BY MOUTH ONCE DAILY WITH FOOD completed predni sone 10 MG Oral Tablet [facility] ([facility]) Doxycycline Monohydrate 100 MG Oral Caps ule doxycycline monohydrate 100 mg capsule TAKE ONE CAPSULE BY MOUTH TWICE DAILY FOR 10 DAYS doxycycline monohydrate 100 mg capsule TAKE ONE CAPSULE BY MOUTH TWICE DAILY FOR 10 DAYS completed doxycycline mo nohydrate 100 MG Oral Capsule JONATAN ([facility]) Doxycycline Monohydrate 100 MG Oral Caps ule doxycycline monohydrate 100 mg capsule TAKE ONE CAPSULE BY MOUTH TWICE DAILY FOR 10 DAYS doxycycline monohydrate 100 mg capsule TAKE ONE CAPSULE BY MOUTH TWICE DAILY FOR 10 DAYS completed doxycycline mo nohydrate 100 MG Oral Capsule [facility] ([facility]) Prednisone 10 MG Oral Tablet prednisone 10 mg tablet TAKE THREE TABLETS BY MOUTH ONCE DAILY WITH FOOD prednisone 10 mg tablet TAKE THREE TABLE TS BY MOUTH ONCE DAILY WITH FOOD completed predni sone 10 MG Oral Tablet [facility] ([facility]) Prednisone 10 MG Oral Tablet prednisone 10 mg tablet TAKE THREE TABLETS BY MOUTH ONCE DAILY WITH FOOD prednisone 10 mg tablet TAKE THREE TABLE TS BY MOUTH ONCE DAILY WITH FOOD completed predni sone 10 MG Oral Tablet [facility] ([facility]) benzonatate 100 MG Oral Capsule benzonat ate 100 mg capsule TAKE ONE CAPSULE BY MOUTH THREE TIMES DAILY NEEDED FOR COUGH benzonatate 100 mg capsule TAKE ONE CAPSULE BY MOUTH THREE TIMES DAILY NEEDED FOR COUGH completed benzonatate 100 MG Oral Capsule [facility] ([facility]) Prednisone 10 MG Oral Tablet prednisone 10 mg tablet TAKE THREE TABLETS BY MOUTH ONCE DAILY WITH FOOD prednisone 10 mg tablet TAKE THREE TABLE TS BY MOUTH ONCE DAILY WITH FOOD completed predni sone 10 MG Oral Tablet [facility] ([facility]) Prednisone 10 MG Oral Tablet prednisone 10 mg tablet TAKE THREE TABLETS BY MOUTH ONCE DAILY WITH FOOD prednisone 10 mg tablet TAKE THREE TABLE TS BY MOUTH ONCE DAILY WITH FOOD completed predni sone 10 MG Oral Tablet [facility] ([facility]) benzonatate 100 MG Oral Capsule benzonat ate 100 mg capsule TAKE ONE CAPSULE BY MOUTH THREE TIMES DAILY NEEDED FOR COUGH benzonatate 100 mg capsule TAKE ONE CAPSULE BY MOUTH THREE TIMES DAILY NEEDED FOR COUGH completed benzonatate 100 MG Oral Capsule [facility] ([facility]) benzonatate 100 MG Oral Capsule benzonat ate 100 mg capsule TAKE ONE CAPSULE BY MOUTH THREE TIMES DAILY NEEDED FOR COUGH benzonatate 100 mg capsule TAKE ONE CAPSULE BY MOUTH THREE TIMES DAILY NEEDED FOR COUGH completed benzonatate 100 MG Oral Capsule [facility] ([facility]) benzonatate 100 MG Oral Capsule benzonat ate 100 mg capsule TAKE ONE CAPSULE BY MOUTH THREE TIMES DAILY NEEDED FOR COUGH benzonatate 100 mg capsule TAKE ONE CAPSULE BY MOUTH THREE TIMES DAILY NEEDED FOR COUGH completed benzonatate 100 MG Oral Capsule [place] ([facility]) Doxycycline Monohydrate 100 MG Oral Caps ule doxycycline monohydrate 100 mg capsule TAKE ONE CAPSULE BY MOUTH TWICE DAILY FOR 10 DAYS doxycycline monohydrate 100 mg capsule TAKE ONE CAPSULE BY MOUTH TWICE DAILY FOR 10 DAYS completed doxycycline mo nohydrate 100 MG Oral Capsule [place] ([facility]) Ergocalciferol 70034 UNT Oral Capsule er gocalciferol (vitamin D2) 1,250 mcg (50,000 unit) capsule ergocalciferol (vitamin D2) 1,250 mcg (5 0,000 unit) capsule completed ergocalciferol 1.25 MG Oral Capsule [place] ([facility]) benzonatate 100 MG Oral Capsule benzonat ate 100 mg capsule TAKE ONE CAPSULE BY MOUTH THREE TIMES DAILY NEEDED FOR COUGH benzonatate 100 mg capsule TAKE ONE CAPSULE BY MOUTH THREE TIMES DAILY NEEDED FOR COUGH completed benzonatate 100 MG Oral Capsule [place] ([facility]) Prednisone 10 MG Oral Tablet prednisone 10 mg tablet TAKE THREE TABLETS BY MOUTH ONCE DAILY WITH FOOD prednisone 10 mg tablet TAKE THREE TABLE TS BY MOUTH ONCE DAILY WITH FOOD completed [facility]ni sone 10 [facility] Prednis[facility] 10 MG Oral Tablet prednisone 10 mg tablet TAKE THREE TABLETS BY MOUTH ONCE DAILY WITH FOOD prednisone 10 mg tablet TAKE THREE TABLE TS BY MOUTH ONCE DAILY WITH FOOD completed predni sone 10 MG Oral Tablet [facility]) Doxycycline Monohydrate 100 MG Oral Caps ule doxycycline monohydrate 100 mg capsule TAKE ONE CAPSULE BY MOUTH TWICE DAILY FOR 10 DAYS doxycycline monohydrate 100 mg capsule TAKE ONE CAPSULE BY MOUTH TWICE DAILY FOR 10 DAYS completed doxycycline mo nohydrate 100 MG Oral Capsule [facility] ([facility]) Doxycycline Monohydrate 100 MG Oral Caps ule doxycycline monohydrate 100 mg capsule TAKE ONE CAPSULE BY MOUTH TWICE DAILY FOR 10 DAYS doxycycline monohydrate 100 mg capsule TAKE ONE CAPSULE BY MOUTH TWICE DAILY FOR 10 DAYS completed doxycycline mo nohydrate 100 MG Oral Capsule [facility] ([facility]) benzonatate 100 MG Oral Capsule benzonat ate 100 mg capsule TAKE ONE CAPSULE BY MOUTH THREE TIMES DAILY NEEDED FOR COUGH benzonatate 100 mg capsule TAKE ONE CAPSULE BY MOUTH THREE TIMES DAILY NEEDED FOR COUGH completed benzonatate 100 MG Oral Capsule JONATAN ([facility]) Doxycycline Monohydrate 100 MG Oral Caps ule doxycycline monohydrate 100 mg capsule TAKE ONE CAPSULE BY MOUTH TWICE DAILY FOR 10 DAYS doxycycline monohydrate 100 mg capsule TAKE ONE CAPSULE BY MOUTH TWICE DAILY FOR 10 DAYS completed doxycycline mo nohydrate 100 MG Oral Capsule JONATAN ([facility]) Prednisone 10 MG Oral Tablet prednisone 10 mg tablet TAKE THREE TABLETS BY MOUTH ONCE DAILY WITH FOOD prednisone 10 mg tablet TAKE THREE TABLE TS BY MOUTH ONCE DAILY WITH FOOD completed [facility] MG Oral Capsule benzonat ate 100 mg capsule TAKE ONE CAPSULE BY MOUTH THREE TIMES DAILY NEEDED FOR COUGH benzonatate 100 mg capsule TAKE ONE CAPSULE BY MOUTH THREE TIMES DAILY NEEDED FOR COUGH completed benzonatate 100 MG Oral Capsule JONATAN ([facility]) Prednisone 10 MG Oral Tablet prednisone 10 mg tablet TAKE THREE TABLETS BY MOUTH ONCE DAILY WITH FOOD prednisone 10 mg tablet TAKE THREE TABLE TS BY MOUTH ONCE DAILY WITH FOOD completed predni sone 10 MG Oral Tablet JONATAN ([facility]) benzonatate 100 MG Oral Capsule benzonat ate 100 mg capsule TAKE ONE CAPSULE BY MOUTH THREE TIMES DAILY NEEDED FOR COUGH benzonatate 100 mg capsule TAKE ONE CAPSULE BY MOUTH THREE TIMES DAILY NEEDED FOR COUGH completed benzonatate 100 MG Oral Capsule JONATAN ([facility]) Doxycycline Monohydrate 100 MG Oral Caps ule doxycycline monohydrate 100 mg capsule TAKE ONE CAPSULE BY MOUTH TWICE DAILY FOR 10 DAYS doxycycline monohydrate 100 mg capsule TAKE ONE CAPSULE BY MOUTH TWICE DAILY FOR 10 DAYS completed doxycycline mo nohydrate 100 MG Oral Capsule JONATAN ([facility]) Doxycycline Monohydrate 100 MG Oral Caps ule doxycycline monohydrate 100 mg capsule TAKE ONE CAPSULE BY MOUTH TWICE DAILY FOR 10 DAYS doxycycline monohydrate 100 mg capsule TAKE ONE CAPSULE BY MOUTH TWICE DAILY FOR 10 DAYS completed doxycycline mo nohydrate 100 MG Oral Capsule JONATAN ([facility]) Doxycycline Monohydrate 100 MG Oral Caps ule doxycycline monohydrate 100 mg capsule TAKE ONE CAPSULE BY MOUTH TWICE DAILY FOR 10 DAYS doxycycline monohydrate 100 mg capsule TAKE ONE CAPSULE BY MOUTH TWICE DAILY FOR 10 DAYS completed doxycycline mo nohydrate 100 MG Oral Capsule [facility] ([facility]) benzonatate 100 MG Oral Capsule benzonat ate 100 mg capsule TAKE ONE CAPSULE BY MOUTH THREE TIMES DAILY NEEDED FOR COUGH benzonatate 100 mg capsule TAKE ONE CAPSULE BY MOUTH THREE TIMES DAILY NEEDED FOR COUGH completed benzonatate 100 MG Oral Capsule JONATAN ([facility]) Prednisone 10 MG Oral Tablet prednisone 10 mg tablet TAKE THREE TABLETS BY MOUTH ONCE DAILY WITH FOOD prednisone 10 mg tablet TAKE THREE TABLE TS BY MOUTH ONCE DAILY WITH FOOD completed predni sone 10 MG Oral Tablet J[facility]AN ([facility]) Prednisone 10 MG Oral Tablet prednisone 10 mg tablet TAKE THREE TABLETS BY MOUTH ONCE DAILY WITH FOOD prednisone 10 mg tablet TAKE THREE TABLE TS BY MOUTH ONCE DAILY WITH FOOD completed predni sone 10 MG Oral Tablet JONATAN ([facility]) Prednisone 10 MG Oral Tablet prednisone 10 mg tablet TAKE THREE TABLETS BY MOUTH ONCE DAILY WITH FOOD prednisone 10 mg tablet TAKE THREE TABLE TS BY MOUTH ONCE DAILY WITH FOOD completed predni sone 10 MG Oral Tablet JON[facility]AN ([facility]) Doxycycline Monohydrate 100 MG Oral Caps ule doxycycline monohydrate 100 mg capsule TAKE ONE CAPSULE BY MOUTH TWICE DAILY FOR 10 DAYS doxycycline monohydrate 100 mg capsule TAKE ONE CAPSULE BY MOUTH TWICE DAILY FOR 10 DAYS completed doxycycline mo nohydrate 100 MG Oral Capsule JONATAN ([facility]) Prednisone 10 MG Oral Tablet prednisone 10 mg tablet TAKE THREE TABLETS BY MOUTH ONCE DAILY WITH FOOD prednisone 10 mg tablet TAKE THREE TABLE TS BY MOUTH ONCE DAILY WITH FOOD completed predni sone 10 MG Oral Tablet JON[facility]AN ([facility]) benzonatate 100 MG Oral Capsule benzonat ate 100 mg capsule TAKE ONE CAPSULE BY MOUTH THREE TIMES DAILY NEEDED FOR COUGH benzonatate 100 mg capsule TAKE ONE CAPSULE BY MOUTH THREE TIMES DAILY NEEDED FOR COUGH completed benzonatate 100 MG Oral Capsule JONATAN ([facility]) benzonatate 100 MG Oral Capsule benzonat ate 100 mg capsule TAKE ONE CAPSULE BY MOUTH THREE TIMES DAILY NEEDED FOR COUGH benzonatate 100 mg capsule TAKE ONE CAPSULE BY MOUTH THREE TIMES DAILY NEEDED FOR COUGH completed benzonatate 100 MG Oral Capsule JONATAN ([facility]) Doxycycline Monohydrate 100 MG Oral Caps ule doxycycline monohydrate 100 mg capsule TAKE ONE CAPSULE BY MOUTH TWICE DAILY FOR 10 DAYS doxycycline monohydrate 100 mg capsule TAKE ONE CAPSULE BY MOUTH TWICE DAILY FOR 10 DAYS completed doxycycline mo nohydrate 100 MG Oral Capsule JONATAN ([facility]) Prednisone 10 MG Oral Tablet prednisone 10 mg tablet TAKE THREE TABLETS BY MOUTH ONCE DAILY WITH FOOD prednisone 10 mg tablet TAKE THREE TABLE TS BY MOUTH ONCE DAILY WITH FOOD completed predni sone 10 MG Oral Tablet J[facility] ([facility]) Doxycycline Monohydrate 100 MG Oral Caps ule doxycycline monohydrate 100 mg capsule TAKE ONE CAPSULE BY MOUTH TWICE DAILY FOR 10 DAYS doxycycline monohydrate 100 mg capsule TAKE ONE CAPSULE BY MOUTH TWICE DAILY FOR 10 DAYS completed doxycycline mo nohydrate 100 MG Oral Capsule JONATAN ([facility]) benzonatate 100 MG Oral Capsule benzonat ate 100 mg capsule TAKE ONE CAPSULE BY MOUTH THREE TIMES DAILY NEEDED FOR COUGH benzonatate 100 mg capsule TAKE ONE CAPSULE BY MOUTH THREE TIMES DAILY NEEDED FOR COUGH completed benzonatate 100 MG Oral Capsule JONATAN ([facility]) Prednisone 10 MG Oral Tablet prednisone 10 mg tablet TAKE THREE TABLETS BY MOUTH ONCE DAILY WITH FOOD prednisone 10 mg tablet TAKE THREE TABLE TS BY MOUTH ONCE DAILY WITH FOOD completed predni sone 10 MG Oral Tablet JONATAN ([facility]) Doxycycline Monohydrate 100 MG Oral Caps ule doxycycline monohydrate 100 mg capsule TAKE ONE CAPSULE BY MOUTH TWICE DAILY FOR 10 DAYS doxycycline monohydrate 100 mg capsule TAKE ONE CAPSULE BY MOUTH TWICE DAILY FOR 10 DAYS completed doxycycline mo nohydrate 100 MG Oral Capsule JONATAN ([facility]) Insurance Providers Payer name Policy type / Coverage type Policy ID Covered democrat ID Covered democrat's relationship to garcia Policy Garcia Plan Information EXCELL C [id number] Self [id number] Medicaid S [id number] S [id number] D [facility] Care Healthplex O [id number] S [id number] Managed Care - Community Plan [facility] P [id number] S [id number] Managed Care BCBS O [id number] S [id number] Medicaid S [id number] S [id number] [employer] COMMUNITY PLAN MCDHMO [id number] SP [id number] [facility] Commercial [id number] Self [id number] Medicaid S [id number] S [id number] Managed Care - Community Plan [facility] P [id number] S [id number] Medicaid S [id number] S [id number] Managed Care - Community Plan [facility] P [id number] S [id number] [employer]HC COMMUNITY PLAN MCDHMO [id number] SP [id number] Medicaid S [id number] S [id number] Managed Care - [facility] Community Plan P [id number] S [id number] Managed Care - Community Plan [facility] P [id number] S [id number] UNHC COMMUNITY PLAN MCDHMO [id number] SP [id number] Medicaid S [id number] S [id number] Managed Care - UHC Community Plan P [id number] S [id number] Medicaid S [id number] S [id number] [facility] JARON [id number] SP [id number] [facility]) O [id number] S [id number] MEDICAID [id number] SP [id number] UNHC CP DUAL COMP - RECURRING [id number] 18 [id number] MEDICAID -RECURRING [id number] [facility] JARON [id number] SP [id number] [facility] Jaron/MCR Health Maintenance Organization (HMO) [id number] Self [id number] [facility] [id number] SP [id number] [facility] [id number] SP [id number] SELF PAY [employer] Medicare Commercial [id number] Self [id number] [facility] [employer] HLTH PLUS [id number] SP [id number] [facility] Health Maintenance Organization (HMO) [id number] Self [id number] Medicaid Dental O [id number] Managed Care [facility] O [id number] S [id number] BLUE CROSS MEAD PLAN [id number] SP [id number] [facility] [place]UE [id number] SP [id number] Problems, Conditions, and Diagnoses No Information Surgeries/Procedures No Information Results ID Date Data Source [id number] 02/10/2021 11:10:00 AM EDT [place] ([facility]) Name Value Range Interpretation Code Description Data Angela rce(s) Supporting Document(s) sars-cov-2 negative negative Sars-cov-2 [place] ([facility]) ID Date Data Source [id number] 02/10/2021 11:10:00 AM EDT [place] ([facility]) Name Value Range Interpretation Code Description Data Angela rce(s) Supporting Document(s) sars-cov-2 negative negative Sars-cov-2 [place] ([facility]) ID Date Data Source [id number] 02/10/2021 11:10:00 AM EDT [place] ([facility]) Name Value Range Interpretation Code Description Data Angela rce(s) Supporting Document(s) sars-cov-2 negative negative Sars-cov-2 [facility]) ID Date Data Source [id number] 02/10/2021 11:06:00 AM EDT [facility] Name Value Range Interpretation Code Description Data Angela rce(s) Supporting Document(s) SARS coronavirus 2 RdRp gene [Presence] in Respiratory specimen by TARI with probe detection Not detected [facility] This lab was ordered by [facility] and reported by [facility]. ID Date Data Source [id number] 01/06/2021 10:42:00 AM EDT [place] ([facility]) Name Value Range Interpretation Code Description Data Angela rce(s) Supporting Document(s) Hemoglobin A1c/Hemoglobin.total in Blood 7.7 %_of_total_HGB <5.7 Above high normal Hemoglobin a1C [place] ([facility]) ID Date Data Source [id number] 01/06/2021 10:42:00 AM EDT [place] ([facility]) Name Value Range Interpretation Code Description Data Angela rce(s) Supporting Document(s) Calcidiol [Mass/volume] in Serum or Plasma 20 NG/mL 30-100 Below low normal Vitamin D,25-Oh,total,ia [facility]) ID Date Data Source [id number] 01/06/2021 10:42:00 AM EDT [place] ([facility]) Name Value Range Interpretation Code Description Data Angela rce(s) Supporting Document(s) Leukocytes [#/volume] in Blood by Automated count 5.7 thousand/uL 3 .8-10.8 White Blood Cell Count [facility]AN ([facility]) Erythrocytes [#/volume] in Blood by Automated count 5.20 million /uL 3.80-5.10 Above high normal Red Blood Cell Count J[place]AN ([facility]) Erythrocyte mean corpuscular volume [Entitic volume] by Auto mated count 81.7 fL 80.0-100.0 Mcv [facility] ([facility]) Hematocrit [Volume Fraction] of Blood by Automated count 42.5 % 35.0-45.0 Hematocrit [place] ([facility]) Hemoglobin [Mass/volume] in Blood 13.4 g/dL 11.7-15.5 He moglobin [facility]AN ([facility]) Erythrocyte mean corpuscular hemoglobin concentration [Mass/volume] by Automated count 31.5 g/dL 32.0-36.0 Below low normal Mchc J[facility]AN ([facility]) Erythrocyte mean corpuscular hemoglobin [Entitic mass] by Automated count 25.8 pg 27.0-33.0 Below low normal Mch [facility] ([facility]) Erythrocyte distribution width [Ratio] by Automated count 14.0 % 11.0-15.0 Rdw J[facility]AN ([facility]) Platelets [#/volume] in Blood by Automated count 261 thousand/uL 14 0-400 Platelet Count [place] ([facility]) Neutrophils [#/volume] in Blood by Automated count 3021 cells/uL 15 00-7800 Absolute Neutrophils JON[facility]AN ([facility]) Platelet mean volume [Entitic volume] in Blood by Cj-Cecilio 10.7 f L 7.5-12.5 Mpv [place] ([facility]) Lymphocytes [#/volume] in Blood by Automated count 2012 cells/uL 85 0-3900 Absolute Lymphocytes [facility]AN ([facility]) Eosinophils [#/volume] in Blood by Automated count 160 cells/uL 15- 500 Absolute Eosinophils JON[facility]AN ([facility]) Monocytes [#/volume] in Blood by Automated count 479 cells/uL 200-9 50 Absolute Monocytes J[facility]AN ([facility]) Basophils [#/volume] in Blood by Automated count 29 cells/uL 0-200 Absolute Basophils [place] ([facility]) Neutrophils/100 leukocytes in Blood by Automated count 53 % 38- 80 Neutrophils J[place]AN ([facility]) Lymphocytes/100 leukocytes in Blood by Automated count 35.3 % 15-49 Lymphocytes JON[facility]AN ([facility]) Monocytes/100 leukocytes in Blood by Automated count 8.4 % 0-13 Monocytes J[facility]AN ([facility]) Eosinophils/100 leukocytes in Blood by Automated count 2.8 % 0-8 Eosinophils [place] ([facility]) Basophils/100 leukocytes in Blood by Automated count 0.5 % 0-2 Basophils [facility]) ID Date Data Source [id number] 01/06/2021 10:42:00 AM EDT [facility]) Name Value Range Interpretation Code Description Data Angela rce(s) Supporting Document(s) Bacteria identified in Urine by Culture Reflexive Urine Culture J[facility] ([facility]) ID Date Data Source [id number] 01/06/2021 10:42:00 AM EDT [place] ([facility]) Name Value Range Interpretation Code Description Data Angela rce(s) Supporting Document(s) Color of Urine yellow yellow Color J[facility] ([facility]) Appearance of Urine cloudy clear Abnormal (applies to non-numeric results) Appearance [facility] ([facility]) Specific gravity of Urine by Test strip 1.001-1.035 Specific Beccaria [facility]AN ([facility]) pH of Urine by Test strip 5.0-8.0 Ph [facility] ([facility]) Glucose [Presence] in Urine by Test strip trace negati ve Abnormal (applies to non-numeric results) Glucose J[facility] ([facility]) Ketones [Presence] in Urine by Test strip 1+ negati ve Abnormal (applies to non- numeric results) Ketones [facility] ([facility]) Hemoglobin [Presence] in Urine by Test strip negative negative Occult Blood J[facility] ([facility]) Bilirubin.total [Presence] in Urine by Test strip negative negative Bilirubin [facility] ([facility]) Protein [Presence] in Urine by Test strip negative negative Protein [facility] ([facility]) Nitrite [Presence] in Urine by Test strip negative negative Nitrite J[facility] ([facility]) Leukocyte esterase [Presence] in Urine by Test strip negative n egative Leukocyte Esterase [facility] ([facility]) Leukocytes [#/area] in Urine sediment by Microscopy high pow er field 0-5 < or = 5 Wbc [facility] ([facility]) Erythrocytes [#/area] in Urine sediment by Microscopy high p ower field 0-2 < or = 2 Rbc J[facility] ([facility]) Epithelial cells.squamous [#/area] in Ur ine sediment by Microscopy high power field 6-10 < or = 5 Abnormal (applies to non-numeric results) Squamous Epithelial Cells JONATAN ([facility]) Calcium oxalate crystals [#/area] in Uri ne sediment by Microscopy high power field many none or few Abnormal (applies to non-numeric results) Calcium Oxalate Crystals JONATAN ([facility]) Bacteria [#/area] in Urine sediment by Microscopy high power field none seen none seen Bacteria [place] ([facility]) Hyaline casts [#/area] in Urine sediment by Microscopy low p ower field 0-1 none seen Abnormal (applies to non-numeric results) Hyaline Cast JONATAN ([facility]) Granular casts [#/area] in Urine sediment by Microscopy low power field 0-1 none seen Abnormal (applies to non-numeric results) Granular Cast [place] ([facility]) ID Date Data Source [id number] 01/06/2021 10:42:00 AM EDT [facility]) Name Value Range Interpretation Code Description Data Angela rce(s) Supporting Document(s) Microalbumin [Mass/volume] in Urine 2.2 mg/dL see note: Albumin, Urine [place] ([facility]) Service comment Lito [place] ([facility]) ID Date Data Source [id number] 01/06/2021 10:42:00 AM EDT [place] ([facility]) Name Value Range Interpretation Code Description Data Angela rce(s) Supporting Document(s) Glucose [Mass/volume] in Serum or Plasma 174 mg/dL 65-99 Above high normal Glucose [place] ([facility]) Urea nitrogen [Mass/volume] in Serum or Plasma 14 mg/dL 7-25 Urea Nitrogen (BUN) [facility]) Creatinine [Mass/volume] in Serum or Plasma 0.70 mg/dL 0.50-1.10 Creatinine [place] ([facility]) Glomerular filtration rate/1.73 sq M.pre dicted among non-blacks [Volume Rate/Area] in Serum, Plasma or Blood by Creatinine-based formula (CKD-EPI) 109 mL/min/1.73m2 > or = 60 eGFR Non-afr. Serbian JONATAN ([facility]) Glomerular filtration rate/1.73 sq M.pre dicted among blacks [Volume Rate/Area] in Serum, Plasma or Blood by Creatinine-based formula (CKD-EPI) 126 mL/min/1.73m2 > or = 60 eGFR JONATAN ([facility]) Urea nitrogen/Creatinine [Mass Ratio] in Serum or Plasma not applic able 6-22 BUN/creatinine Ratio [facility] ([facility]) Potassium [Moles/volume] in Serum or Plasma 4.4 mmol/L 3.5-5.3 Potassium [place] ([facility]) Sodium [Moles/volume] in Serum or Plasma 134 mmol/L 135-146 Below low normal Sodium [place] ([facility]) Carbon dioxide, total [Moles/volume] in Serum or Plasma 23 mmol/L 20-32 Carbon Dioxide J[place] ([facility]) Chloride [Moles/volume] in Serum or Plasma 99 mmol/L 98-110 Chloride [place] ([facility]) Protein [Mass/volume] in Serum or Plasma 7.2 g/dL 6.1-8.1 [facility], [facility] Calcium [Mass/volume] in Serum or Plasma 8.6 mg/dL 8.6-10.2 Calcium [place] ([facility]) Albumin [Mass/volume] in Serum or Plasma 4.1 g/dL 3.6-5.1 Albumin [place] ([facility]) Globulin [Mass/volume] in Serum by calculation 3.1 g/dL_(calc) 1.9- 3.7 Globulin [place] ([facility]) Bilirubin.total [Mass/volume] in Serum or Plasma 0.5 mg/dL 0.2-1 .2 Bilirubin, Total [place] ([facility]) Albumin/Globulin [Mass Ratio] in Serum or Plasma 1.3 (calc) 1.0-2 .5 Albumin/globulin Ratio [facility] ([facility]) Alkaline phosphatase [Enzymatic activity/volume] in Serum or Plasma 93 U/L 31-125 Alkaline Phosphatase J[facility] ([facility]) Aspartate aminotransferase [Enzymatic activity/volume] in Serum or Plasma 29 U/L 10-30 Ast [place] ([facility]) Alanine aminotransferase [Enzymatic activity/volume] in Seru m or Plasma 35 U/L 6-29 Above high normal Alt J[facility]AN ([facility]) ID Date Data Source [id number] 01/06/2021 10:42:00 AM EDT [place] ([facility]) Name Value Range Interpretation Code Description Data Angela rce(s) Supporting Document(s) Thyrotropin [Units/volume] in Serum or Plasma 2.59 mIU/L Tsh [place] ([facility]) Thyroxine (T4) free [Mass/volume] in Serum or Plasma 1.3 NG/dL 0 .8-1.8 T4, Free [place] ([facility]) ID Date Data Source [id number] 01/06/2021 10:42:00 AM EDT [place] ([facility]) Name Value Range Interpretation Code Description Data Angela rce(s) Supporting Document(s) Cholesterol [Mass/volume] in Serum or Plasma 169 mg/dL <200 Cholesterol, Total [place] ([facility]) Triglyceride [Mass/volume] in Serum or Plasma 193 mg/dL <150 Above high normal Triglycerides [place] ([facility]) Cholesterol in HDL [Mass/volume] in Serum or Plasma 39 mg/dL > or = 50 Below low normal HDL Cholesterol [place] ([facility]) Cholesterol.total/Cholesterol in HDL [Mass Ratio] in Serum o r Plasma 4.3 calc <5.0 Chol/hdlc Ratio [place] ([facility]) Cholesterol in LDL [Mass/volume] in Serum or Plasma by calculation 99 mg/dL_(calc) <100 LDL-cholesterol [facility] ([facility]) Cholesterol non HDL [Mass/volume] in Serum or Plasma 130 mg/dL_( calc) <130 Above high normal Non HDL Cholesterol [place] ([facility]) ID Date Data Source [id number] 01/06/2021 10:42:00 AM EDT [place] ([facility]) Name Value Range Interpretation Code Description Data Angela rce(s) Supporting Document(s) Cholesterol [Mass/volume] in Serum or Plasma 169 mg/dL <200 Cholesterol, Total [place] ([facility]) Triglyceride [Mass/volume] in Serum or Plasma 193 mg/dL <150 Above high normal Triglycerides [place] ([facility]) Cholesterol in HDL [Mass/volume] in Serum or Plasma 39 mg/dL > or = 50 Below low normal HDL Cholesterol [place] ([facility]) Cholesterol in LDL [Mass/volume] in Serum or Plasma by calculation 99 mg/dL_(calc) <100 LDL-cholesterol [place] ([facility]) Cholesterol.total/Cholesterol in HDL [Mass Ratio] in Serum o r Plasma 4.3 calc <5.0 Chol/hdlc Ratio [place] ([facility]) Cholesterol non HDL [Mass/volume] in Serum or Plasma 130 mg/dL_( calc) <130 Above high normal Non HDL Cholesterol [place] ([facility]) ID Date Data Source [id number] 01/06/2021 10:42:00 AM EDT [place] ([facility]) Name Value Range Interpretation Code Description Data Angela rce(s) Supporting Document(s) Hemoglobin A1c/Hemoglobin.total in Blood 7.7 %_of_total_HGB <5.7 Above high normal Hemoglobin a1C [place] ([facility]) ID Date Data Source [id number] 01/06/2021 10:42:00 AM EDT [place] ([facility]) Name Value Range Interpretation Code Description Data Angela rce(s) Supporting Document(s) Calcidiol [Mass/volume] in Serum or Plasma 20 NG/mL 30-100 Below low normal Vitamin D,25-Oh,total,ia [place] ([facility]) ID Date Data Source [id number] 01/06/2021 10:42:00 AM EDT [place] ([facility]) Name Value Range Interpretation Code Description Data Angela rce(s) Supporting Document(s) Leukocytes [#/volume] in Blood by Automated count 5.7 thousand/uL 3 .8-10.8 White Blood Cell Count JONATAN ([facility]) Hemoglobin [Mass/volume] in Blood 13.4 g/dL 11.7-15.5 He moglobin JONATAN ([facility]) Erythrocytes [#/volume] in Blood by Automated count 5.20 million /uL 3.80-5.10 Above high normal Red Blood Cell Count JONATAN ([facility]) Hematocrit [Volume Fraction] of Blood by Automated count 42.5 % 35.0-45.0 Hematocrit JONATAN ([facility]) Erythrocyte mean corpuscular hemoglobin [Entitic mass] by Automated count 25.8 pg 27.0-33.0 Below low normal Mch JONATAN ([facility]) Erythrocyte mean corpuscular volume [Entitic volume] by Auto mated count 81.7 fL 80.0-100.0 Mcv JONATAN ([facility]) Platelets [#/volume] in Blood by Automated count 261 thousand/uL 14 0-400 Platelet Count [place] ([facility]) Erythrocyte distribution width [Ratio] by Automated count 14.0 % 11.0-15.0 Rdw JONATAN ([facility]) Erythrocyte mean corpuscular hemoglobin concentration [Mass/volume] by Automated count 31.5 g/dL 32.0-36.0 Below low normal Mchc JONATAN ([facility]) Lymphocytes [#/volume] in Blood by Automated count 2012 cells/uL 85 0-3900 Absolute Lymphocytes JONATAN ([facility]) Neutrophils [#/volume] in Blood by Automated count 3021 cells/uL 15 00-7800 Absolute Neutrophils JONATAN ([facility]) Platelet mean volume [Entitic volume] in Blood by Josi 10.7 f L 7.5-12.5 Mpv JONATAN ([facility]) Eosinophils [#/volume] in Blood by Automated count 160 cells/uL 15- 500 Absolute Eosinophils JONATAN ([facility]) Monocytes [#/volume] in Blood by Automated count 479 cells/uL 200-9 50 Absolute Monocytes JONATAN ([facility]) Neutrophils/100 leukocytes in Blood by Automated count 53 % 38- 80 Neutrophils JONATAN ([facility]) Basophils [#/volume] in Blood by Automated count 29 cells/uL 0-200 Absolute Basophils JONATAN ([facility]) Monocytes/100 leukocytes in Blood by Automated count 8.4 % 0-13 Monocytes JONATAN ([facility]) Eosinophils/100 leukocytes in Blood by Automated count 2.8 % 0-8 Eosinophils JON[place]AN ([facility]) Lymphocytes/100 leukocytes in Blood by Automated count 35.3 % 15-49 Lymphocytes JONATAN ([facility]) Basophils/100 leukocytes in Blood by Automated count 0.5 % 0-2 Basophils JONATAN ([facility]) ID Date Data Source [id number] 01/06/2021 10:42:00 AM EDT [place] ([facility]) Name Value Range Interpretation Code Description Data Angela rce(s) Supporting Document(s) Bacteria identified in Urine by Culture Reflexive Urine Culture [facility]) ID Date Data Source [id number] 01/06/2021 10:42:00 AM EDT [place] ([facility]) Name Value Range Interpretation Code Description Data Angela rce(s) Supporting Document(s) Color of Urine yellow yellow Color JONATAN ([facility]) Appearance of Urine cloudy clear Abnormal (applies to non-numeric results) Appearance JONATAN ([facility]) Specific gravity of Urine by Test strip 1.001-1.035 Specific Beccaria [place] ([facility]) pH of Urine by Test strip 5.0-8.0 Ph [place] ([facility]) Bilirubin.total [Presence] in Urine by Test strip negative negative Bilirubin JONATAN ([facility]) Glucose [Presence] in Urine by Test strip trace negati ve Abnormal (applies to non-numeric results) Glucose J[place]AN ([facility]) Ketones [Presence] in Urine by Test strip 1+ negati ve Abnormal (applies to non- numeric results) Ketones [facility]AN ([facility]) Protein [Presence] in Urine by Test strip negative negative Protein JONATAN ([facility]) Hemoglobin [Presence] in Urine by Test strip negative negative Occult Blood JONATAN ([facility]) Leukocyte esterase [Presence] in Urine by Test strip negative n egative Leukocyte Esterase J[place]AN ([facility]) Nitrite [Presence] in Urine by Test strip negative negative Nitrite [place] ([facility]) Leukocytes [#/area] in Urine sediment by Microscopy high pow er field 0-5 < or = 5 Wbc J[facility]AN ([facility]) Erythrocytes [#/area] in Urine sediment by Microscopy high p ower field 0-2 < or = 2 Rbc J[facility]AN ([facility]) Epithelial cells.squamous [#/area] in Ur ine sediment by Microscopy high power field 6-10 < or = 5 Abnormal (applies to non-numeric results) Squamous Epithelial Cells JONATAN ([facility]) Bacteria [#/area] in Urine sediment by Microscopy high power field none seen none seen Bacteria JONATAN ([facility]) Calcium oxalate crystals [#/area] in Uri ne sediment by Microscopy high power field many none or few Abnormal (applies to non-numeric results) Calcium Oxalate Crystals JONATAN ([facility]) Hyaline casts [#/area] in Urine sediment by Microscopy low p ower field 0-1 none seen Abnormal (applies to non-numeric results) Hyaline Cast [place] ([facility]) Granular casts [#/area] in Urine sediment by Microscopy low power field 0-1 none seen Abnormal (applies to non-numeric results) Granular Cast J[place]AN ([facility]) ID Date Data Source [id number] 01/06/2021 10:42:00 AM EDT [place] ([facility]) Name Value Range Interpretation Code Description Data Angela rce(s) Supporting Document(s) Microalbumin [Mass/volume] in Urine 2.2 mg/dL see note: Albumin, Urine J[place]AN ([facility]) Service comment Lito JONATAN ([facility]) ID Date Data Source [id number] 01/06/2021 10:42:00 AM EDT [facility]) Name Value Range Interpretation Code Description Data Angela rce(s) Supporting Document(s) Glucose [Mass/volume] in Serum or Plasma 174 mg/dL 65-99 Above high normal Glucose [place]AN ([facility]) Urea nitrogen [Mass/volume] in Serum or Plasma 14 mg/dL 7-25 Urea Nitrogen (BUN) [place]AN ([facility]) Glomerular filtration rate/1.73 sq M.pre dicted among non-blacks [Volume Rate/Area] in Serum, Plasma or Blood by Creatinine-based formula (CKD-EPI) 109 mL/min/1.73m2 > or = 60 eGFR Non-afr. Serbian JONATAN ([facility]) Creatinine [Mass/volume] in Serum or Plasma 0.70 mg/dL 0.50-1.10 Creatinine J[place]AN ([facility]) Urea nitrogen/Creatinine [Mass Ratio] in Serum or Plasma not applic able 6-22 BUN/creatinine Ratio [place] ([facility]) Glomerular filtration rate/1.73 sq M.pre dicted among blacks [Volume Rate/Area] in Serum, Plasma or Blood by Creatinine-based formula (CKD-EPI) 126 mL/min/1.73m2 > or = 60 eGFR JONATAN ([facility]) Sodium [Moles/volume] in Serum or Plasma 134 mmol/L 135-146 Below low normal Sodium J[place]AN ([facility]) Potassium [Moles/volume] in Serum or Plasma 4.4 mmol/L 3.5-5.3 Potassium [place] ([facility]) Carbon dioxide, total [Moles/volume] in Serum or Plasma 23 mmol/L 20-32 Carbon Dioxide J[place] ([facility]) Chloride [Moles/volume] in Serum or Plasma 99 mmol/L 98-110 Chloride [place] ([facility]) Calcium [Mass/volume] in Serum or Plasma 8.6 mg/dL 8.6-10.2 Calcium [place] ([facility]) Protein [Mass/volume] in Serum or Plasma 7.2 g/dL 6.1-8.1 Protein, Total [place] ([facility]) Albumin [Mass/volume] in Serum or Plasma 4.1 g/dL 3.6-5.1 Albumin [facility]) Globulin [Mass/volume] in Serum by calculation 3.1 g/dL_(calc) 1.9- 3.7 Globulin [place] ([facility]) Bilirubin.total [Mass/volume] in Serum or Plasma 0.5 mg/dL 0.2-1 .2 Bilirubin, Total [place] ([facility]) Albumin/Globulin [Mass Ratio] in Serum or Plasma 1.3 (calc) 1.0-2 .5 Albumin/globulin Ratio [place] ([facility]) Aspartate aminotransferase [Enzymatic activity/volume] in Serum or Plasma 29 U/L 10-30 Ast [place] ([facility]) Alkaline phosphatase [Enzymatic activity/volume] in Serum or Plasma 93 U/L 31-125 Alkaline Phosphatase [facility] ([facility]) Alanine aminotransferase [Enzymatic activity/volume] in Seru m or Plasma 35 U/L 6-29 Above high normal Alt JON[facility]AN ([facility]) ID Date Data Source [id number] 01/06/2021 10:42:00 AM EDT [place] ([facility]) Name Value Range Interpretation Code Description Data Angela rce(s) Supporting Document(s) Thyrotropin [Units/volume] in Serum or Plasma 2.59 mIU/L Tsh JON[place]AN ([facility]) Thyroxine (T4) free [Mass/volume] in Serum or Plasma 1.3 NG/dL 0 .8-1.8 T4, [facility] ID Date Data Source [id number] 01/06/2021 10:42:00 AM EDT [place] ([facility]) Name Value Range Interpretation Code Description Data Angela rce(s) Supporting Document(s) Cholesterol [Mass/volume] in Serum or Plasma 169 mg/dL <200 Cholesterol, Total [place] ([facility]) Cholesterol in HDL [Mass/volume] in Serum or Plasma 39 mg/dL > or = 50 Below low normal HDL Cholesterol J[facility]ATAN ([facility]) Cholesterol in LDL [Mass/volume] in Serum or Plasma by calculation 99 mg/dL_(calc) <100 LDL-cholesterol J[facility]AN ([facility]) Triglyceride [Mass/volume] in Serum or Plasma 193 mg/dL <150 Above high normal Triglycerides JON[place]AN ([facility]) Cholesterol.total/Cholesterol in HDL [Mass Ratio] in Serum o r Plasma 4.3 calc <5.0 Chol/hdlc Ratio [facility] ([facility]) Cholesterol non HDL [Mass/volume] in Serum or Plasma 130 mg/dL_( calc) <130 Above high normal Non HDL Cholesterol J[facility] ([facility]) ID Date Data Source [id number] 01/06/2021 10:42:00 AM EDT [facility]) Name Value Range Interpretation Code Description Data Angela rce(s) Supporting Document(s) Hemoglobin A1c/Hemoglobin.total in Blood 7.7 %_of_total_HGB <5.7 Above high normal Hemoglobin a1C [place] ([facility]) ID Date Data Source [id number] 01/06/2021 10:42:00 AM EDT [place] ([facility]) Name Value Range Interpretation Code Description Data Angela rce(s) Supporting Document(s) Calcidiol [Mass/volume] in Serum or Plasma 20 NG/mL 30-100 Below low normal Vitamin D,25-Oh,total,ia [facility]) ID Date Data Source [id number] 01/06/2021 10:42:00 AM EDT [facility]) Name Value Range Interpretation Code Description Data Angela rce(s) Supporting Document(s) Leukocytes [#/volume] in Blood by Automated count 5.7 thousand/uL 3 .8-10.8 White Blood Cell Count [place] ([facility]) Hematocrit [Volume Fraction] of Blood by Automated count 42.5 % 35.0-45.0 Hematocrit [place]AN ([facility]) Erythrocytes [#/volume] in Blood by Automated count 5.20 million /uL 3.80-5.10 Above high normal Red Blood Cell Count [place] ([facility]) Hemoglobin [Mass/volume] in Blood 13.4 g/dL 11.7-15.5 He moglobin [place]AN ([facility]) Erythrocyte mean corpuscular volume [Entitic volume] by Auto mated count 81.7 fL 80.0-100.0 Mcv [facility]AN ([facility]) Erythrocyte mean corpuscular hemoglobin concentration [Mass/volume] by Automated count 31.5 g/dL 32.0-36.0 Below low normal Mchc JONATAN ([facility]) Erythrocyte mean corpuscular hemoglobin [Entitic mass] by Automated count 25.8 pg 27.0-33.0 Below low normal Mch J[facility]AN ([facility]) Platelets [#/volume] in Blood by Automated count 261 thousand/uL 14 0-400 Platelet Count [place] ([facility]) Platelet mean volume [Entitic volume] in Blood by Josi 10.7 f L 7.5-12.5 Mpv [place]AN ([facility]) Erythrocyte distribution width [Ratio] by Automated count 14.0 % 11.0-15.0 Rdw [place] ([facility]) Neutrophils [#/volume] in Blood by Automated count 3021 cells/uL 15 00-7800 Absolute Neutrophils [place] ([facility]) Monocytes [#/volume] in Blood by Automated count 479 cells/uL 200-9 50 Absolute Monocytes [place] ([facility]) Lymphocytes [#/volume] in Blood by Automated count 2012 cells/uL 85 0-3900 Absolute Lymphocytes [place] ([facility]) Lymphocytes/100 leukocytes in Blood by Automated count 35.3 % 15-49 Lymphocytes [place] ([facility]) Eosinophils [#/volume] in Blood by Automated count 160 cells/uL 15- 500 Absolute Eosinophils [place] ([facility]) Basophils [#/volume] in Blood by Automated count 29 cells/uL 0-200 Absolute Basophils [place] ([facility]) Neutrophils/100 leukocytes in Blood by Automated count 53 % 38- 80 Neutrophils [place] ([facility]) Basophils/100 leukocytes in Blood by Automated count 0.5 % 0-2 Basophils [place] ([facility]) Monocytes/100 leukocytes in Blood by Automated count 8.4 % 0-13 Monocytes [place] ([facility]) Eosinophils/100 leukocytes in Blood by Automated count 2.8 % 0-8 Eosinophils [place] ([facility]) ID Date Data Source [id number] 01/06/2021 10:42:00 AM EDT [place] ([facility]) Name Value Range Interpretation Code Description Data Angela rce(s) Supporting Document(s) Bacteria identified in Urine by Culture Reflexive Urine Culture [place] ([facility]) ID Date Data Source [id number] 01/06/2021 10:42:00 AM EDT [place] ([facility]) Name Value Range Interpretation Code Description Data Angela rce(s) Supporting Document(s) Color of Urine yellow yellow Color [facility]AN ([facility]) Appearance of Urine cloudy clear Abnormal (applies to non-numeric results) Appearance [place] ([facility]) pH of Urine by Test strip 5.0-8.0 Ph [place] ([facility]) Specific gravity of Urine by Test strip 1.001-1.035 Specific Beccaria [place] ([facility]) Bilirubin.total [Presence] in Urine by Test strip negative negative Bilirubin [place] ([facility]) Glucose [Presence] in Urine by Test strip trace negati ve Abnormal (applies to non-numeric results) Glucose JONATNA ([facility]) Ketones [Presence] in Urine by Test strip 1+ negati ve Abnormal (applies to non- numeric results) Ketones [facility] ([facility]) Protein [Presence] in Urine by Test strip negative negative Protein J[place]AN ([facility]) Hemoglobin [Presence] in Urine by Test strip negative negative Occult Blood J[place]AN ([facility]) Nitrite [Presence] in Urine by Test strip negative negative Nitrite [place] ([facility]) Leukocytes [#/area] in Urine sediment by Microscopy high pow er field 0-5 < or = 5 Wbc [facility] ([facility]) Leukocyte esterase [Presence] in Urine by Test strip negative n egative Leukocyte Esterase J[place]AN ([facility]) Epithelial cells.squamous [#/area] in Ur ine sediment by Microscopy high power field 6-10 < or = 5 Abnormal (applies to non-numeric results) Squamous Epithelial Cells [place]AN ([facility]) Bacteria [#/area] in Urine sediment by Microscopy high power field none seen none seen Bacteria [facility] ([facility]) Erythrocytes [#/area] in Urine sediment by Microscopy high p ower field 0-2 < or = 2 Rbc [place] ([facility]) Granular casts [#/area] in Urine sediment by Microscopy low power field 0-1 none seen Abnormal (applies to non-numeric results) Granular Cast J[place] ([facility]) Hyaline casts [#/area] in Urine sediment by Microscopy low p ower field 0-1 none seen Abnormal (applies to non-numeric results) Hyaline Cast J[place]AN ([facility]) Calcium oxalate crystals [#/area] in Uri ne sediment by Microscopy high power field many none or few Abnormal (applies to non-numeric results) Calcium Oxalate Crystals [place] ([facility]) ID Date Data Source [id number] 01/06/2021 10:42:00 AM EDT [place] ([facility]) Name Value Range Interpretation Code Description Data Angela rce(s) Supporting Document(s) Service comment Lito [place] ([facility]) Microalbumin [Mass/volume] in Urine 2.2 mg/dL see note: Albumin, Urine [place] ([facility]) ID Date Data Source [id number] 01/06/2021 10:42:00 AM EDT [place] ([facility]) Name Value Range Interpretation Code Description Data Angela rce(s) Supporting Document(s) Urea nitrogen [Mass/volume] in Serum or Plasma 14 mg/dL 7-25 Urea Nitrogen (BUN) [place] ([facility]) Glucose [Mass/volume] in Serum or Plasma 174 mg/dL 65-99 Above high normal Glucose J[place]AN ([facility]) Creatinine [Mass/volume] in Serum or Plasma 0.70 mg/dL 0.50-1.10 Creatinine J[place]AN ([facility]) Glomerular filtration rate/1.73 sq M.pre dicted among blacks [Volume Rate/Area] in Serum, Plasma or Blood by Creatinine-based formula (CKD-EPI) 126 mL/min/1.73m2 > or = 60 eGFR JONATAN ([facility]) Glomerular filtration rate/1.73 sq M.pre dicted among non-blacks [Volume Rate/Area] in Serum, Plasma or Blood by Creatinine-based formula (CKD-EPI) 109 mL/min/1.73m2 > or = 60 eGFR Non-afr. Serbian JONATAN ([facility]) Sodium [Moles/volume] in Serum or Plasma 134 mmol/L 135-146 Below low normal Sodium JON[place]AN ([facility]) Urea nitrogen/Creatinine [Mass Ratio] in Serum or Plasma not applic able 6-22 BUN/creatinine Ratio [place] ([facility]) Potassium [Moles/volume] in Serum or Plasma 4.4 mmol/L 3.5-5.3 Potassium [place] ([facility]) Chloride [Moles/volume] in Serum or Plasma 99 mmol/L 98-110 Chloride JON[place]AN ([facility]) Carbon dioxide, total [Moles/volume] in Serum or Plasma 23 mmol/L 20-32 Carbon Dioxide [place] ([facility]) Albumin [Mass/volume] in Serum or Plasma 4.1 g/dL 3.6-5.1 Albumin [place] ([facility]) Calcium [Mass/volume] in Serum or Plasma 8.6 mg/dL 8.6-10.2 Calcium [facility]) Protein [Mass/volume] in Serum or Plasma 7.2 g/dL 6.1-8.1 Protein, Total [place] ([facility]) Albumin/Globulin [Mass Ratio] in Serum or Plasma 1.3 (calc) 1.0-2 .5 Albumin/globulin Ratio [place] ([facility]) Bilirubin.total [Mass/volume] in Serum or Plasma 0.5 mg/dL 0.2-1 .2 Bilirubin, Total [facility]) Globulin [Mass/volume] in Serum by calculation 3.1 g/dL_(calc) 1.9- 3.7 Globulin [place] ([facility]) Aspartate aminotransferase [Enzymatic activity/volume] in Serum or Plasma 29 U/L 10-30 Ast [place] ([facility]) Alkaline phosphatase [Enzymatic activity/volume] in Serum or Plasma 93 U/L 31-125 Alkaline Phosphatase [facility] ([facility]) Alanine aminotransferase [Enzymatic activity/volume] in Seru m or Plasma 35 U/L 6-29 Above high normal Alt [facility] ([facility]) ID Date Data Source [id number] 01/06/2021 10:42:00 AM EDT [place] ([facility]) Name Value Range Interpretation Code Description Data Angela rce(s) Supporting Document(s) Thyrotropin [Units/volume] in Serum or Plasma 2.59 mIU/L Tsh [place] ([facility]) Thyroxine (T4) free [Mass/volume] in Serum or Plasma 1.3 NG/dL 0 .8-1.8 T4, Free [place] ([facility]) ID Date Data Source [id number] 01/06/2021 10:42:00 AM EDT [place] ([facility]) Name Value Range Interpretation Code Description Data Angela rce(s) Supporting Document(s) Cholesterol [Mass/volume] in Serum or Plasma 169 mg/dL <200 Cholesterol, Total [place] ([facility]) Triglyceride [Mass/volume] in Serum or Plasma 193 mg/dL <150 Above high normal Triglycerides [place]AN ([facility]) Cholesterol in LDL [Mass/volume] in Serum or Plasma by calculation 99 mg/dL_(calc) <100 LDL-cholesterol [facility] ([facility]) Cholesterol in HDL [Mass/volume] in Serum or Plasma 39 mg/dL > or = 50 Below low normal HDL Cholesterol [facility] ([facility]) Cholesterol non HDL [Mass/volume] in Serum or Plasma 130 mg/dL_( calc) <130 Above high normal Non HDL Cholesterol [place] ([facility]) Cholesterol.total/Cholesterol in HDL [Mass Ratio] in Serum o r Plasma 4.3 calc <5.0 Chol/hdlc Ratio [facility] ([facility]) ID Date Data Source [id number] 01/06/2021 10:42:00 AM EDT [facility]) Name Value Range Interpretation Code Description Data Angela rce(s) Supporting Document(s) Hemoglobin A1c/Hemoglobin.total in Blood 7.7 %_of_total_HGB <5.7 Above high normal Hemoglobin a1C [place] ([facility]) ID Date Data Source [id number] 01/06/2021 10:42:00 AM EDT [facility]) Name Value Range Interpretation Code Description Data Angela rce(s) Supporting Document(s) Calcidiol [Mass/volume] in Serum or Plasma 20 NG/mL 30-100 Below low normal Vitamin D,25-Oh,total,ia [facility]) ID Date Data Source [id number] 01/06/2021 10:42:00 AM EDT [facility]) Name Value Range Interpretation Code Description Data Angela rce(s) Supporting Document(s) Leukocytes [#/volume] in Blood by Automated count 5.7 thousand/uL 3 .8-10.8 White Blood Cell Count [place] ([facility]) Erythrocytes [#/volume] in Blood by Automated count 5.20 million /uL 3.80-5.10 Above high normal Red Blood Cell Count [place] ([facility]) Erythrocyte mean corpuscular volume [Entitic volume] by Auto mated count 81.7 fL 80.0-100.0 Mcv [place] ([facility]) Hematocrit [Volume Fraction] of Blood by Automated count 42.5 % 35.0-45.0 Hematocrit [place] ([facility]) Hemoglobin [Mass/volume] in Blood 13.4 g/dL 11.7-15.5 He moglobin [place]AN ([facility]) Erythrocyte mean corpuscular hemoglobin concentration [Mass/volume] by Automated count 31.5 g/dL 32.0-36.0 Below low normal Mchc JONATAN ([facility]) Erythrocyte mean corpuscular hemoglobin [Entitic mass] by Automated count 25.8 pg 27.0-33.0 Below low normal Mch JON[place]AN ([facility]) Erythrocyte distribution width [Ratio] by Automated count 14.0 % 11.0-15.0 Rdw JONATAN ([facility]) Platelets [#/volume] in Blood by Automated count 261 thousand/uL 14 0-400 Platelet Count JONATAN ([facility]) Neutrophils [#/volume] in Blood by Automated count 3021 cells/uL 15 00-7800 Absolute Neutrophils JONATAN ([facility]) Platelet mean volume [Entitic volume] in Blood by Cj-Cecilio 10.7 f L 7.5-12.5 Mpv JONATAN ([facility]) Lymphocytes [#/volume] in Blood by Automated count 2012 cells/uL 85 0-3900 Absolute Lymphocytes JONATAN ([facility]) Monocytes [#/volume] in Blood by Automated count 479 cells/uL 200-9 50 Absolute Monocytes JONATAN ([facility]) Basophils [#/volume] in Blood by Automated count 29 cells/uL 0-200 Absolute Basophils JONATAN ([facility]) Eosinophils [#/volume] in Blood by Automated count 160 cells/uL 15- 500 Absolute Eosinophils JONATAN ([facility]) Neutrophils/100 leukocytes in Blood by Automated count 53 % 38- 80 Neutrophils JON[facility]AN ([facility]) Lymphocytes/100 leukocytes in Blood by Automated count 35.3 % 15-49 Lymphocytes JONATAN ([facility]) Basophils/100 leukocytes in Blood by Automated count 0.5 % 0-2 Basophils JONATAN ([facility]) Eosinophils/100 leukocytes in Blood by Automated count 2.8 % 0-8 Eosinophils JONATAN ([facility]) Monocytes/100 leukocytes in Blood by Automated count 8.4 % 0-13 Monocytes JONATAN ([facility]) ID Date Data Source [id number] 01/06/2021 10:42:00 AM EDT [place] ([facility]) Name Value Range Interpretation Code Description Data Angela rce(s) Supporting Document(s) Bacteria identified in Urine by Culture Reflexive Urine Culture JONATAN ([facility]) ID Date Data Source [id number] 01/06/2021 10:42:00 AM EDT JONATAN ([facility]) Name Value Range Interpretation Code Description Data Angela rce(s) Supporting Document(s) Appearance of Urine cloudy clear Abnormal (applies to non-numeric results) Appearance JONATAN ([facility]) Color of Urine yellow yellow Color JONATAN ([facility]) Specific gravity of Urine by Test strip 1.001-1.035 Specific Beccaria JONATAN ([facility]) pH of Urine by Test strip 5.0-8.0 Ph JON[facility]AN ([facility]) Bilirubin.total [Presence] in Urine by Test strip negative negative Bilirubin JONATAN ([facility]) Glucose [Presence] in Urine by Test strip trace negati ve Abnormal (applies to non-numeric results) Glucose JON[facility]AN ([facility]) Ketones [Presence] in Urine by Test strip 1+ negati ve Abnormal (applies to non- numeric results) Ketones [facility] ([facility]) Hemoglobin [Presence] in Urine by Test strip negative negative Occult Blood JONATAN ([facility]) Nitrite [Presence] in Urine by Test strip negative negative Nitrite [facility] ([facility]) Protein [Presence] in Urine by Test strip negative negative Protein [facility]ON[place] ([facility]) Leukocyte esterase [Presence] in Urine by Test strip negative n egative Leukocyte Esterase JONATAN ([facility]) Leukocytes [#/area] in Urine sediment by Microscopy high pow er field 0-5 < or = 5 Wbc [facility] ([facility]) Erythrocytes [#/area] in Urine sediment by Microscopy high p ower field 0-2 < or = 2 Rbc [facility] ([facility]) Bacteria [#/area] in Urine sediment by Microscopy high power field none seen none seen Bacteria JONATAN ([facility]) Epithelial cells.squamous [#/area] in Ur ine sediment by Microscopy high power field 6-10 < or = 5 Abnormal (applies to non-numeric results) Squamous Epithelial Cells JONATAN ([facility]) Calcium oxalate crystals [#/area] in Uri ne sediment by Microscopy high power field many none or few Abnormal (applies to non-numeric results) Calcium Oxalate Crystals JONATAN ([facility]) Hyaline casts [#/area] in Urine sediment by Microscopy low p ower field 0-1 none seen Abnormal (applies to non-numeric results) Hyaline Cast JONATAN ([facility]) Granular casts [#/area] in Urine sediment by Microscopy low power field 0-1 none seen Abnormal (applies to non-numeric results) Granular Cast [place] ([facility]) ID Date Data Source [id number] 01/06/2021 10:42:00 AM EDT [facility]) Name Value Range Interpretation Code Description Data Angela rce(s) Supporting Document(s) Microalbumin [Mass/volume] in Urine 2.2 mg/dL see note: Albumin, Urine [facility]) Service comment Lito [place] ([facility]) ID Date Data Source [id number] 01/06/2021 10:42:00 AM EDT [facility]) Name Value Range Interpretation Code Description Data Angela rce(s) Supporting Document(s) Glucose [Mass/volume] in Serum or Plasma 174 mg/dL 65-99 Above high normal Glucose JON[place]AN ([facility]) Urea nitrogen [Mass/volume] in Serum or Plasma 14 mg/dL 7-25 Urea Nitrogen (BUN) [facility]) Creatinine [Mass/volume] in Serum or Plasma 0.70 mg/dL 0.50-1.10 Creatinine JON[place]AN ([facility]) Glomerular filtration rate/1.73 sq M.pre dicted among non-blacks [Volume Rate/Area] in Serum, Plasma or Blood by Creatinine-based formula (CKD-EPI) 109 mL/min/1.73m2 > or = 60 eGFR Non-afr. Serbian JONATAN ([facility]) Urea nitrogen/Creatinine [Mass Ratio] in Serum or Plasma not applic able 6-22 BUN/creatinine Ratio [facility]) Glomerular filtration rate/1.73 sq M.pre dicted among blacks [Volume Rate/Area] in Serum, Plasma or Blood by Creatinine-based formula (CKD-EPI) 126 mL/min/1.73m2 > or = 60 eGFR [facility]AN ([facility]) Potassium [Moles/volume] in Serum or Plasma 4.4 mmol/L 3.5-5.3 Potassium [place] ([facility]) Sodium [Moles/volume] in Serum or Plasma 134 mmol/L 135-146 Below low normal Sodium [facility] ([facility]) Chloride [Moles/volume] in Serum or Plasma 99 mmol/L 98-110 Chloride [place] ([facility]) Carbon dioxide, total [Moles/volume] in Serum or Plasma 23 mmol/L 20-32 Carbon Dioxide JON[place]AN ([facility]) Calcium [Mass/volume] in Serum or Plasma 8.6 mg/dL 8.6-10.2 Calcium [facility]) Protein [Mass/volume] in Serum or Plasma 7.2 g/dL 6.1-8.1 Protein, Total [place] ([facility]) Globulin [Mass/volume] in Serum by calculation 3.1 g/dL_(calc) 1.9- 3.7 Globulin [place] ([facility]) Albumin [Mass/volume] in Serum or Plasma 4.1 g/dL 3.6-5.1 Albumin [place] ([facility]) Albumin/Globulin [Mass Ratio] in Serum or Plasma 1.3 (calc) 1.0-2 .5 Albumin/globulin Ratio [place] ([facility]) Bilirubin.total [Mass/volume] in Serum or Plasma 0.5 mg/dL 0.2-1 .2 Bilirubin, Total [place] ([facility]) Aspartate aminotransferase [Enzymatic activity/volume] in Serum or Plasma 29 U/L 10-30 Ast [place] ([facility]) Alkaline phosphatase [Enzymatic activity/volume] in Serum or Plasma 93 U/L 31-125 Alkaline Phosphatase [place] ([facility]) Alanine aminotransferase [Enzymatic activity/volume] in Seru m or Plasma 35 U/L 6-29 Above high normal Alt [place] ([facility]) ID Date Data Source [id number] 01/06/2021 10:42:00 AM EDT [place] ([facility]) Name Value Range Interpretation Code Description Data Angela rce(s) Supporting Document(s) Thyrotropin [Units/volume] in Serum or Plasma 2.59 mIU/L Tsh [place] ([facility]) Thyroxine (T4) free [Mass/volume] in Serum or Plasma 1.3 NG/dL 0 .8-1.8 T4, Free [place] ([facility]) ID Date Data Source [id number] 01/06/2021 10:42:00 AM EDT [place] ([facility]) Name Value Range Interpretation Code Description Data Angela rce(s) Supporting Document(s) Cholesterol [Mass/volume] in Serum or Plasma 169 mg/dL <200 Cholesterol, Total [place] ([facility]) Cholesterol in HDL [Mass/volume] in Serum or Plasma 39 mg/dL > or = 50 Below low normal HDL Cholesterol [facility] ([facility]) Triglyceride [Mass/volume] in Serum or Plasma 193 mg/dL <150 Above high normal Triglycerides J[place]AN ([facility]) Cholesterol.total/Cholesterol in HDL [Mass Ratio] in Serum o r Plasma 4.3 calc <5.0 Chol/hdlc Ratio [facility] ([facility]) Cholesterol in LDL [Mass/volume] in Serum or Plasma by calculation 99 mg/dL_(calc) <100 LDL-cholesterol [facility] ([facility]) Cholesterol non HDL [Mass/volume] in Serum or Plasma 130 mg/dL_( calc) <130 Above high normal Non HDL Cholesterol [facility] ([facility]) ID Date Data Source [id number] 01/06/2021 10:42:00 AM EDT [place] ([facility]) Name Value Range Interpretation Code Description Data Angela rce(s) Supporting Document(s) Hemoglobin A1c/Hemoglobin.total in Blood 7.7 %_of_total_HGB <5.7 Above high normal Hemoglobin a1C [facility] ([facility]) ID Date Data Source [id number] 01/06/2021 10:42:00 AM EDT [place] ([facility]) Name Value Range Interpretation Code Description Data Angela rce(s) Supporting Document(s) Calcidiol [Mass/volume] in Serum or Plasma 20 NG/mL 30-100 Below low normal Vitamin D,25-Oh,total,ia [place] ([facility]) ID Date Data Source [id number] 01/06/2021 10:42:00 AM EDT [place] ([facility]) Name Value Range Interpretation Code Description Data Angela rce(s) Supporting Document(s) Erythrocytes [#/volume] in Blood by Automated count 5.20 million /uL 3.80-5.10 Above high normal Red Blood Cell Count [place] ([facility]) Leukocytes [#/volume] in Blood by Automated count 5.7 thousand/uL 3 .8-10.8 White Blood Cell Count [place] ([facility]) Hemoglobin [Mass/volume] in Blood 13.4 g/dL 11.7-15.5 He moglobin [place] ([facility]) Hematocrit [Volume Fraction] of Blood by Automated count 42.5 % 35.0-45.0 Hematocrit [place] ([facility]) Erythrocyte mean corpuscular volume [Entitic volume] by Auto mated count 81.7 fL 80.0-100.0 Mcv [facility] ([facility]) Erythrocyte mean corpuscular hemoglobin [Entitic mass] by Automated count 25.8 pg 27.0-33.0 Below low normal Mch J[facility]AN ([facility]) Erythrocyte distribution width [Ratio] by Automated count 14.0 % 11.0-15.0 Rdw [place] ([facility]) Erythrocyte mean corpuscular hemoglobin concentration [Mass/volume] by Automated count 31.5 g/dL 32.0-36.0 Below low normal Mchc J[facility]AN ([facility]) Platelet mean volume [Entitic volume] in Blood by Josi 10.7 f L 7.5-12.5 Mpv JON[place]AN ([facility]) Platelets [#/volume] in Blood by Automated count 261 thousand/uL 14 0-400 Platelet Count [place] ([facility]) Neutrophils [#/volume] in Blood by Automated count 3021 cells/uL 15 00-7800 Absolute Neutrophils JON[place]AN ([facility]) Lymphocytes [#/volume] in Blood by Automated count 2012 cells/uL 85 0-3900 Absolute Lymphocytes [facility]AN ([facility]) Monocytes [#/volume] in Blood by Automated count 479 cells/uL 200-9 50 Absolute Monocytes [facility] ([facility]) Basophils [#/volume] in Blood by Automated count 29 cells/uL 0-200 Absolute Basophils [facility] ([facility]) Eosinophils [#/volume] in Blood by Automated count 160 cells/uL 15- 500 Absolute Eosinophils [facility] ([facility]) Lymphocytes/100 leukocytes in Blood by Automated count 35.3 % 15-49 Lymphocytes [place]AN ([facility]) Neutrophils/100 leukocytes in Blood by Automated count 53 % 38- 80 Neutrophils [place] ([facility]) Monocytes/100 leukocytes in Blood by Automated count 8.4 % 0-13 Monocytes [place]AN ([facility]) Eosinophils/100 leukocytes in Blood by Automated count 2.8 % 0-8 Eosinophils [place] ([facility]) Basophils/100 leukocytes in Blood by Automated count 0.5 % 0-2 Basophils [place] ([facility]) ID Date Data Source [id number] 01/06/2021 10:42:00 AM EDT [facility]) Name Value Range Interpretation Code Description Data Angela rce(s) Supporting Document(s) Bacteria identified in Urine by Culture Reflexive Urine Culture [facility]) ID Date Data Source [id number] 01/06/2021 10:42:00 AM EDT [facility]) Name Value Range Interpretation Code Description Data Angela rce(s) Supporting Document(s) Color of Urine yellow yellow Color [place]AN ([facility]) Appearance of Urine cloudy clear Abnormal (applies to non-numeric results) Appearance JONATAN ([facility]) pH of Urine by Test strip 5.0-8.0 Ph [place] ([facility]) Specific gravity of Urine by Test strip 1.001-1.035 Specific Beccaria [place]AN ([facility]) Bilirubin.total [Presence] in Urine by Test strip negative negative Bilirubin [place] ([facility]) Glucose [Presence] in Urine by Test strip trace negati ve Abnormal (applies to non-numeric results) Glucose [facility] ([facility]) Ketones [Presence] in Urine by Test strip 1+ negati ve Abnormal (applies to non- numeric results) Ketones [facility] ([facility]) Protein [Presence] in Urine by Test strip negative negative Protein [place] ([facility]) Hemoglobin [Presence] in Urine by Test strip negative negative Occult Blood [place] ([facility]) Nitrite [Presence] in Urine by Test strip negative negative Nitrite [place] ([facility]) Leukocyte esterase [Presence] in Urine by Test strip negative n egative Leukocyte Esterase [facility] ([facility]) Leukocytes [#/area] in Urine sediment by Microscopy high pow [place] field 0-5 < or = 5 Wbc [facility] ([facility]) Erythrocytes [#/area] in Urine sediment by Microscopy high p ower field 0-2 < or = 2 Rbc [facility] ([facility]) Epithelial cells.squamous [#/area] in Ur ine sediment by Microscopy high power field 6-10 < or = 5 Abnormal (applies to non-numeric results) Squamous Epithelial Cells [place] ([facility]) Calcium oxalate crystals [#/area] in Uri ne sediment by Microscopy high power field many none or few Abnormal (applies to non-numeric results) Calcium Oxalate Crystals [place] ([facility]) Bacteria [#/area] in Urine sediment by Microscopy high power field none seen none seen Bacteria [facility] ([facility]) Granular casts [#/area] in Urine sediment by Microscopy low power field 0-1 none seen Abnormal (applies to non-numeric results) Granular Cast [place] ([facility]) Hyaline casts [#/area] in Urine sediment by Microscopy low p ower field 0-1 none seen Abnormal (applies to non-numeric results) Hyaline Cast [place] ([facility]) ID Date Data Source [id number] 01/06/2021 10:42:00 AM EDT [facility]) Name Value Range Interpretation Code Description Data Angela rce(s) Supporting Document(s) Microalbumin [Mass/volume] in Urine 2.2 mg/dL see note: Albumin, Urine [facility]) Service comment Lito [place] ([facility]) ID Date Data Source [id number] 01/06/2021 10:42:00 AM EDT [facility]) Name Value Range Interpretation Code Description Data Angela rce(s) Supporting Document(s) Glucose [Mass/volume] in Serum or Plasma 174 mg/dL 65-99 Above high normal Glucose [facility]) Creatinine [Mass/volume] in Serum or Plasma 0.70 mg/dL 0.50-1.10 Creatinine [facility]) Urea nitrogen [Mass/volume] in Serum or Plasma 14 mg/dL 7-25 [facility] Glomerular filtration rate/1.73 sq M.pre dicted among blacks [Volume Rate/Area] in Serum, Plasma or Blood by Creatinine-based formula (CKD-EPI) 126 mL/min/1.73m2 > or = 60 eGFR J[place]AN ([facility]) Glomerular filtration rate/1.73 sq M.pre dicted among non-blacks [Volume Rate/Area] in Serum, Plasma or Blood by Creatinine-based formula (CKD-EPI) 109 mL/min/1.73m2 > or = 60 eGFR Non-afr. Serbian JONATAN ([facility]) Urea nitrogen/Creatinine [Mass Ratio] in Serum or Plasma not applic able 6-22 BUN/creatinine Ratio [facility]) Sodium [Moles/volume] in Serum or Plasma 134 mmol/L 135-146 Below low normal Sodium [facility]) Chloride [Moles/volume] in Serum or Plasma 99 mmol/L 98-110 Chloride [place] ([facility]) Potassium [Moles/volume] in Serum or Plasma 4.4 mmol/L 3.5-5.3 Potassium J[place]AN ([facility]) Carbon dioxide, total [Moles/volume] in Serum or Plasma 23 mmol/L 20-32 Carbon Dioxide JON[place]AN ([facility]) Calcium [Mass/volume] in Serum or Plasma 8.6 mg/dL 8.6-10.2 Calcium [place] ([facility]) Protein [Mass/volume] in Serum or Plasma 7.2 g/dL 6.1-8.1 Protein, Total [place] ([facility]) Albumin [Mass/volume] in Serum or Plasma 4.1 g/dL 3.6-5.1 Albumin [place] ([facility]) Globulin [Mass/volume] in Serum by calculation 3.1 g/dL_(calc) 1.9- 3.7 Globulin [place] ([facility]) Albumin/Globulin [Mass Ratio] in Serum or Plasma 1.3 (calc) 1.0-2 .5 Albumin/globulin Ratio [place] ([facility]) Bilirubin.total [Mass/volume] in Serum or Plasma 0.5 mg/dL 0.2-1 .2 Bilirubin, Total [place] ([facility]) Alkaline phosphatase [Enzymatic activity/volume] in Serum or Plasma 93 U/L 31-125 Alkaline Phosphatase [facility] ([facility]) Aspartate aminotransferase [Enzymatic activity/volume] in Serum or Plasma 29 U/L 10-30 Ast [place] ([facility]) Alanine aminotransferase [Enzymatic activity/volume] in Seru m or Plasma 35 U/L 6-29 Above high normal Alt [facility] ([facility]) ID Date Data Source [id number] 01/06/2021 10:42:00 AM EDT [place] ([facility]) Name Value Range Interpretation Code Description Data Angela rce(s) Supporting Document(s) Thyrotropin [Units/volume] in Serum or Plasma 2.59 mIU/L Tsh [facility]) Thyroxine (T4) free [Mass/volume] in Serum or Plasma 1.3 NG/dL 0 .8-1.8 T4, Free [place] ([facility]) ID Date Data Source [id number] 01/06/2021 10:42:00 AM EDT [place] ([facility]) Name Value Range Interpretation Code Description Data Angela rce(s) Supporting Document(s) Cholesterol [Mass/volume] in Serum or Plasma 169 mg/dL <200 Cholesterol, Total [place] ([facility]) Cholesterol in HDL [Mass/volume] in Serum or Plasma 39 mg/dL > or = 50 Below low normal HDL Cholesterol [facility] ([facility]) Triglyceride [Mass/volume] in Serum or Plasma 193 mg/dL <150 Above high normal Triglycerides [place] ([facility]) Cholesterol in LDL [Mass/volume] in Serum or Plasma by calculation 99 mg/dL_(calc) <100 LDL-cholesterol [place] ([facility]) Cholesterol.total/Cholesterol in HDL [Mass Ratio] in Serum o r Plasma 4.3 calc <5.0 Chol/hdlc Ratio [facility] ([facility]) Cholesterol non HDL [Mass/volume] in Serum or Plasma 130 mg/dL_( calc) <130 Above high normal Non HDL Cholesterol [place] ([facility]) ID Date Data Source [id number] 01/06/2021 10:42:00 AM EDT [facility]) Name Value Range Interpretation Code Description Data Angela rce(s) Supporting Document(s) Hemoglobin A1c/Hemoglobin.total in Blood 7.7 %_of_total_HGB <5.7 Above high normal Hemoglobin a1C [facility] ([facility]) ID Date Data Source [id number] 01/06/2021 10:42:00 AM EDT [place] ([facility]) Name Value Range Interpretation Code Description Data Angela rce(s) Supporting Document(s) Calcidiol [Mass/volume] in Serum or Plasma 20 NG/mL 30-100 Below low normal Vitamin D,25-Oh,total,ia [place] ([facility]) ID Date Data Source [id number] 01/06/2021 10:42:00 AM EDT [place] ([facility]) Name Value Range Interpretation Code Description Data Angela rce(s) Supporting Document(s) Leukocytes [#/volume] in Blood by Automated count 5.7 thousand/uL 3 .8-10.8 White Blood Cell Count [place] ([facility]) Erythrocytes [#/volume] in Blood by Automated count 5.20 million /uL 3.80-5.10 Above high normal Red Blood Cell Count [place] ([facility]) Hemoglobin [Mass/volume] in Blood 13.4 g/dL 11.7-15.5 He moglobin [place] ([facility]) Hematocrit [Volume Fraction] of Blood by Automated count 42.5 % 35.0-45.0 Hematocrit [place] ([facility]) Erythrocyte mean corpuscular volume [Entitic volume] by Auto mated count 81.7 fL 80.0-100.0 Mcv [facility] ([facility]) Erythrocyte mean corpuscular hemoglobin concentration [Mass/volume] by Automated count 31.5 g/dL 32.0-36.0 Below low normal Mchc [facility] ([facility]) Erythrocyte mean corpuscular hemoglobin [Entitic mass] by Automated count 25.8 pg 27.0-33.0 Below low normal Mch [facility] ([facility]) Erythrocyte distribution width [Ratio] by Automated count 14.0 % 11.0-15.0 Rdw [place] ([facility]) Platelet mean volume [Entitic volume] in Blood by Josi 10.7 f L 7.5-12.5 Mpv [place] ([facility]) Platelets [#/volume] in Blood by Automated count 261 thousand/uL 14 0-400 Platelet Count [place] ([facility]) Monocytes [#/volume] in Blood by Automated count 479 cells/uL 200-9 50 Absolute Monocytes [facility] ([facility]) Neutrophils [#/volume] in Blood by Automated count 3021 cells/uL 15 00-7800 Absolute Neutrophils [facility] ([facility]) Lymphocytes [#/volume] in Blood by Automated count 2012 cells/uL 85 0-3900 Absolute Lymphocytes [facility] ([facility]) Eosinophils [#/volume] in Blood by Automated count 160 cells/uL 15- 500 Absolute Eosinophils [facility] ([facility]) Basophils [#/volume] in Blood by Automated count 29 cells/uL 0-200 Absolute Basophils [facility] ([facility]) Neutrophils/100 leukocytes in Blood by Automated count 53 % 38- 80 Neutrophils JONATAN ([facility]) Lymphocytes/100 leukocytes in Blood by Automated count 35.3 % 15-49 Lymphocytes JONATAN ([facility]) Eosinophils/100 leukocytes in Blood by Automated count 2.8 % 0-8 Eosinophils JONATAN ([facility]) Monocytes/100 leukocytes in Blood by Automated count 8.4 % 0-13 Monocytes JONATAN ([facility]) Basophils/100 leukocytes in Blood by Automated count 0.5 % 0-2 Basophils JONATAN ([facility]) ID Date Data Source [id number] 01/06/2021 10:42:00 AM EDT [facility]) Name Value Range Interpretation Code Description Data Angela rce(s) Supporting Document(s) Bacteria identified in Urine by Culture Reflexive Urine Culture [facility]) ID Date Data Source [id number] 01/06/2021 10:42:00 AM EDT [facility]) Name Value Range Interpretation Code Description Data Angela rce(s) Supporting Document(s) Appearance of Urine cloudy clear Abnormal (applies to non-numeric results) Appearance JONATAN ([facility]) Color of Urine yellow yellow Color JONATAN ([facility]) pH of Urine by Test strip 5.0-8.0 Ph JONATAN ([facility]) Specific gravity of Urine by Test strip 1.001-1.035 Specific Beccaria JONATAN ([facility]) Ketones [Presence] in Urine by Test strip 1+ negati ve Abnormal (applies to non- numeric results) Ketones [facility] ([facility]) Bilirubin.total [Presence] in Urine by Test strip negative negative Bilirubin JONATAN ([facility]) Glucose [Presence] in Urine by Test strip trace negati ve Abnormal (applies to non-numeric results) Glucose JONATAN ([facility]) Protein [Presence] in Urine by Test strip negative negative Protein JONATAN ([facility]) Hemoglobin [Presence] in Urine by Test strip negative negative Occult Blood JONATAN ([facility]) Nitrite [Presence] in Urine by Test strip negative negative Nitrite JONATAN ([facility]) Leukocytes [#/area] in Urine sediment by Microscopy high pow er field 0-5 < or = 5 Wbc JONATAN ([facility]) Leukocyte esterase [Presence] in Urine by Test strip negative n egative Leukocyte Esterase JONATAN ([facility]) Bacteria [#/area] in Urine sediment by Microscopy high power field none seen none seen Bacteria JONATAN ([facility]) Erythrocytes [#/area] in Urine sediment by Microscopy high p ower field 0-2 < or = 2 Rbc JONATAN ([facility]) Epithelial cells.squamous [#/area] in Ur ine sediment by Microscopy high power field 6-10 < or = 5 Abnormal (applies to non-numeric results) Squamous Epithelial Cells JONATAN ([facility]) Calcium oxalate crystals [#/area] in Uri ne sediment by Microscopy high power field many none or few Abnormal (applies to non-numeric results) Calcium Oxalate Crystals JONATAN ([facility]) Hyaline casts [#/area] in Urine sediment by Microscopy low p ower field 0-1 none seen Abnormal (applies to non-numeric results) Hyaline Cast JONATAN ([facility]) Granular casts [#/area] in Urine sediment by Microscopy low power field 0-1 none seen Abnormal (applies to non-numeric results) Granular Cast JONATAN ([facility]) ID Date Data Source [id number] 01/06/2021 10:42:00 AM EDT [place] ([facility]) Name Value Range Interpretation Code Description Data Angela rce(s) Supporting Document(s) Microalbumin [Mass/volume] in Urine 2.2 mg/dL see note: Albumin, Urine [place] ([facility]) Service comment Lito [place] ([facility]) ID Date Data Source [id number] 01/06/2021 10:42:00 AM EDT [place] ([facility]) Name Value Range Interpretation Code Description Data Angela rce(s) Supporting Document(s) Glucose [Mass/volume] in Serum or Plasma 174 mg/dL 65-99 Above high normal Glucose JONATAN ([facility]) Glomerular filtration rate/1.73 sq M.pre dicted among non-blacks [Volume Rate/Area] in Serum, Plasma or Blood by Creatinine-based formula (CKD-EPI) 109 mL/min/1.73m2 > or = 60 eGFR Non-afr. Serbian JONATAN ([facility]) Urea nitrogen [Mass/volume] in Serum or Plasma 14 mg/dL 7-25 Urea Nitrogen (BUN) [place] ([facility]) Creatinine [Mass/volume] in Serum or Plasma 0.70 mg/dL 0.50-1.10 Creatinine [place] ([facility]) Glomerular filtration rate/1.73 sq M.pre dicted among blacks [Volume Rate/Area] in Serum, Plasma or Blood by Creatinine-based formula (CKD-EPI) 126 mL/min/1.73m2 > or = 60 eGFR JONATAN ([facility]) Urea nitrogen/Creatinine [Mass Ratio] in Serum or Plasma not applic able 6-22 BUN/creatinine Ratio [place] ([facility]) Potassium [Moles/volume] in Serum or Plasma 4.4 mmol/L 3.5-5.3 Potassium JONATAN ([facility]) Sodium [Moles/volume] in Serum or Plasma 134 mmol/L 135-146 Below low normal Sodium JON[place]AN ([facility]) Chloride [Moles/volume] in Serum or Plasma 99 mmol/L 98-110 Chloride JONATAN ([facility]) Calcium [Mass/volume] in Serum or Plasma 8.6 mg/dL 8.6-10.2 Calcium JON[place]AN ([facility]) Carbon dioxide, total [Moles/volume] in Serum or Plasma 23 mmol/L 20-32 Carbon Dioxide JONATAN ([facility]) Globulin [Mass/volume] in Serum by calculation 3.1 g/dL_(calc) 1.9- 3.7 Globulin [place] ([facility]) Protein [Mass/volume] in Serum or Plasma 7.2 g/dL 6.1-8.1 Protein, Total J[place]AN ([facility]) Albumin [Mass/volume] in Serum or Plasma 4.1 g/dL 3.6-5.1 Albumin [place] ([facility]) Bilirubin.total [Mass/volume] in Serum or Plasma 0.5 mg/dL 0.2-1 .2 Bilirubin, Total J[place]AN ([facility]) Albumin/Globulin [Mass Ratio] in Serum or Plasma 1.3 (calc) 1.0-2 .5 Albumin/globulin Ratio [place] ([facility]) Alanine aminotransferase [Enzymatic activity/volume] in Seru m or Plasma 35 U/L 6-29 Above high normal Alt J[facility]AN ([facility]) Alkaline phosphatase [Enzymatic activity/volume] in Serum or Plasma 93 U/L 31-125 Alkaline Phosphatase J[facility]ATAN ([facility]) Aspartate aminotransferase [Enzymatic activity/volume] in Serum or Plasma 29 U/L 10-30 Ast J[place]AN ([facility]) ID Date Data Source [id number] 01/06/2021 10:42:00 AM EDT [facility]) Name Value Range Interpretation Code Description Data Angela rce(s) Supporting Document(s) Thyrotropin [Units/volume] in Serum or Plasma 2.59 mIU/L Tsh [place] ([facility]) Thyroxine (T4) free [Mass/volume] in Serum or Plasma 1.3 NG/dL 0 .8-1.8 T4, Free [facility]) ID Date Data Source [id number] 01/06/2021 10:42:00 AM EDT [facility]) Name Value Range Interpretation Code Description Data Angela rce(s) Supporting Document(s) Cholesterol [Mass/volume] in Serum or Plasma 169 mg/dL <200 Cholesterol, Total [place]AN ([facility]) Cholesterol in HDL [Mass/volume] in Serum or Plasma 39 mg/dL > or = 50 Below low normal HDL Cholesterol JONAT[facility] ([facility]) Triglyceride [Mass/volume] in Serum or Plasma 193 mg/dL <150 Above high normal Triglycerides JONATAN ([facility]) Cholesterol.total/Cholesterol in HDL [Mass Ratio] in Serum o r Plasma 4.3 calc <5.0 Chol/hdlc Ratio [facility] ([facility]) Cholesterol in LDL [Mass/volume] in Serum or Plasma by calculation 99 mg/dL_(calc) <100 LDL-cholesterol J[facility]AN ([facility]) Cholesterol non HDL [Mass/volume] in Serum or Plasma 130 mg/dL_( calc) <130 Above high normal Non HDL Cholesterol J[facility] ([facility]) ID Date Data Source [id number] 01/06/2021 10:42:00 AM EDT [place]AN ([facility]) Name Value Range Interpretation Code Description Data Angela rce(s) Supporting Document(s) Hemoglobin A1c/Hemoglobin.total in Blood 7.7 %_of_total_HGB <5.7 Above high normal Hemoglobin a1C [facility] ([facility]) ID Date Data Source [id number] 01/06/2021 10:42:00 AM EDT [place] ([facility]) Name Value Range Interpretation Code Description Data Angela rce(s) Supporting Document(s) Calcidiol [Mass/volume] in Serum or Plasma 20 NG/mL 30-100 Below low normal Vitamin D,25-Oh,total,ia JONATAN ([facility]) ID Date Data Source [id number] 01/06/2021 10:42:00 AM EDT [place] ([facility]) Name Value Range Interpretation Code Description Data Angela rce(s) Supporting Document(s) Erythrocytes [#/volume] in Blood by Automated count 5.20 million /uL 3.80-5.10 Above high normal Red Blood Cell Count JONATAN ([facility]) Leukocytes [#/volume] in Blood by Automated count 5.7 thousand/uL 3 .8-10.8 White Blood Cell Count J[place]AN ([facility]) Hemoglobin [Mass/volume] in Blood 13.4 g/dL 11.7-15.5 He moglobin JON[place]AN ([facility]) Erythrocyte mean corpuscular hemoglobin [Entitic mass] by Automated count 25.8 pg 27.0-33.0 Below low normal Mch JONATAN ([facility]) Erythrocyte mean corpuscular volume [Entitic volume] by Auto mated count 81.7 fL 80.0-100.0 Mcv JON[facility]AN ([facility]) Hematocrit [Volume Fraction] of Blood by Automated count 42.5 % 35.0-45.0 Hematocrit JON[place]AN ([facility]) Erythrocyte mean corpuscular hemoglobin concentration [Mass/volume] by Automated count 31.5 g/dL 32.0-36.0 Below low normal Mchc JONATAN ([facility]) Erythrocyte distribution width [Ratio] by Automated count 14.0 % 11.0-15.0 Rdw JON[place]AN ([facility]) Platelet mean volume [Entitic volume] in Blood by Josi 10.7 f L 7.5-12.5 Mpv JONATAN ([facility]) Platelets [#/volume] in Blood by Automated count 261 thousand/uL 14 0-400 Platelet Count JON[place]AN ([facility]) Neutrophils [#/volume] in Blood by Automated count 3021 cells/uL 15 00-7800 Absolute Neutrophils JON[place]AN ([facility]) Monocytes [#/volume] in Blood by Automated count 479 cells/uL 200-9 50 Absolute Monocytes JON[place]AN ([facility]) Lymphocytes [#/volume] in Blood by Automated count 2012 cells/uL 85 0-3900 [facility] Eosinophils [#/volume] in Blood by Automated count 160 cells/uL 15- 500 Absolute Eosinophils JONATAN ([facility]) Basophils [#/volume] in Blood by Automated count 29 cells/uL 0-200 Absolute Basophils JON[place]AN ([facility]) Neutrophils/100 leukocytes in Blood by Automated count 53 % 38- 80 Neutrophils [place] ([facility]) Lymphocytes/100 leukocytes in Blood by Automated count 35.3 % 15-49 Lymphocytes J[place]AN ([facility]) Basophils/100 leukocytes in Blood by Automated count 0.5 % 0-2 Basophils J[place] ([facility]) Eosinophils/100 leukocytes in Blood by Automated count 2.8 % 0-8 Eosinophils J[place]AN ([facility]) Monocytes/100 leukocytes in Blood by Automated count 8.4 % 0-13 Monocytes JONATAN ([facility]) ID Date Data Source [id number] 01/06/2021 10:42:00 AM EDT [facility]) Name Value Range Interpretation Code Description Data Angela rce(s) Supporting Document(s) Bacteria identified in Urine by Culture Reflexive Urine Culture [facility]) ID Date Data Source [id number] 01/06/2021 10:42:00 AM EDT [place] ([facility]) Name Value Range Interpretation Code Description Data Angela rce(s) Supporting Document(s) Color of Urine yellow yellow Color JONATAN ([facility]) Specific gravity of Urine by Test strip 1.001-1.035 Specific Beccaria JONATAN ([facility]) Appearance of Urine cloudy clear Abnormal (applies to non-numeric results) Appearance JONATAN ([facility]) Glucose [Presence] in Urine by Test strip trace negati ve Abnormal (applies to non-numeric results) Glucose [facility]ATAN ([facility]) Bilirubin.total [Presence] in Urine by Test strip negative negative Bilirubin JONATAN ([facility]) pH of Urine by Test strip 5.0-8.0 Ph [facility] ([facility]) Protein [Presence] in Urine by Test strip negative negative Protein [facility]AN ([facility]) Hemoglobin [Presence] in Urine by Test strip negative negative Occult Blood JONATAN ([facility]) Ketones [Presence] in Urine by Test strip 1+ negati ve Abnormal (applies to non- numeric results) Ketones [facility] ([facility]) Leukocyte esterase [Presence] in Urine by Test strip negative n egative Leukocyte Esterase JON[facility]AN ([facility]) Nitrite [Presence] in Urine by Test strip negative negative Nitrite JON[place]AN ([facility]) Leukocytes [#/area] in Urine sediment by Microscopy high pow er field 0-5 < or = 5 Wbc JON[facility] ([facility]) Erythrocytes [#/area] in Urine sediment by Microscopy high p ower field 0-2 < or = 2 Rbc J[facility] ([facility]) Epithelial cells.squamous [#/area] in Ur ine sediment by Microscopy high power field 6-10 < or = 5 Abnormal (applies to non-numeric results) Squamous Epithelial Cells JONATAN ([facility]) Hyaline casts [#/area] in Urine sediment by Microscopy low p ower field 0-1 none seen Abnormal (applies to non-numeric results) Hyaline Cast JON[facility]AN ([facility]) Bacteria [#/area] in Urine sediment by Microscopy high power field none seen none seen Bacteria JONATAN ([facility]) Calcium oxalate crystals [#/area] in Uri ne sediment by Microscopy high power field many none or few Abnormal (applies to non-numeric results) Calcium Oxalate Crystals JONATAN ([facility]) Granular casts [#/area] in Urine sediment by Microscopy low power field 0-1 none seen Abnormal (applies to non-numeric results) Granular Cast [place] ([facility]) ID Date Data Source [id number] 01/06/2021 10:42:00 AM EDT [facility]) Name Value Range Interpretation Code Description Data Angela rce(s) Supporting Document(s) Microalbumin [Mass/volume] in Urine 2.2 mg/dL see note: Albumin, Urine [place] ([facility]) Service comment Lito [place] ([facility]) ID Date Data Source [id number] 01/06/2021 10:42:00 AM EDT [facility]) Name Value Range Interpretation Code Description Data Angela rce(s) Supporting Document(s) Glucose [Mass/volume] in Serum or Plasma 174 mg/dL 65-99 Above high normal Glucose [place] ([facility]) Creatinine [Mass/volume] in Serum or Plasma 0.70 mg/dL 0.50-1.10 Creatinine [place] ([facility]) Urea nitrogen [Mass/volume] in Serum or Plasma 14 mg/dL 7-25 Urea Nitrogen (BUN) [place] ([facility]) Urea nitrogen/Creatinine [Mass Ratio] in Serum or Plasma not applic able 6-22 BUN/creatinine Ratio [place] ([facility]) Glomerular filtration rate/1.73 sq M.pre dicted among non-blacks [Volume Rate/Area] in Serum, Plasma or Blood by Creatinine-based formula (CKD-EPI) 109 mL/min/1.73m2 > or = 60 eGFR Non-afr. Serbian JONATAN ([facility]) Glomerular filtration rate/1.73 sq M.pre dicted among blacks [Volume Rate/Area] in Serum, Plasma or Blood by Creatinine-based formula (CKD-EPI) 126 mL/min/1.73m2 > or = 60 eGFR JONATAN ([facility]) Potassium [Moles/volume] in Serum or Plasma 4.4 mmol/L 3.5-5.3 Potassium J[place] ([facility]) Sodium [Moles/volume] in Serum or Plasma 134 mmol/L 135-146 Below low normal Sodium [place] ([facility]) Carbon dioxide, total [Moles/volume] in Serum or Plasma 23 mmol/L 20-32 Carbon Dioxide J[place] ([facility]) Chloride [Moles/volume] in Serum or Plasma 99 mmol/L 98-110 Chloride [place] ([facility]) Protein [Mass/volume] in Serum or Plasma 7.2 g/dL 6.1-8.1 Protein, Total [place] ([facility]) Albumin [Mass/volume] in Serum or Plasma 4.1 g/dL 3.6-5.1 Albumin [place] ([facility]) Calcium [Mass/volume] in Serum or Plasma 8.6 mg/dL 8.6-10.2 Calcium [place] ([facility]) Globulin [Mass/volume] in Serum by calculation 3.1 g/dL_(calc) 1.9- 3.7 Globulin [place] ([facility]) Albumin/Globulin [Mass Ratio] in Serum or Plasma 1.3 (calc) 1.0-2 .5 Albumin/globulin Ratio [place] ([facility]) Alkaline phosphatase [Enzymatic activity/volume] in Serum or Plasma 93 U/L 31-125 Alkaline Phosphatase J[facility] ([facility]) Aspartate aminotransferase [Enzymatic activity/volume] in Serum or Plasma 29 U/L 10-30 Ast [place] ([facility]) Bilirubin.total [Mass/volume] in Serum or Plasma 0.5 mg/dL 0.2-1 .2 Bilirubin, Total [place] ([facility]) Alanine aminotransferase [Enzymatic activity/volume] in Seru m or Plasma 35 U/L 6-29 Above high normal Alt [facility] ([facility]) ID Date Data Source [id number] 01/06/2021 10:42:00 AM EDT [place] ([facility]) Name Value Range Interpretation Code Description Data Angela rce(s) Supporting Document(s) Thyroxine (T4) free [Mass/volume] in Serum or Plasma 1.3 NG/dL 0 .8-1.8 T4, Free [place] ([facility]) Thyrotropin [Units/volume] in Serum or Plasma 2.59 mIU/L Tsh [place] ([facility]) ID Date Data Source [id number] 09/25/2020 08:10:00 AM EST [place] ([facility]) Name Value Range Interpretation Code Description Data Angela rce(s) Supporting Document(s) ID Date Data Source [id number] 09/25/2020 08:10:00 AM EST [place] ([facility]) Name Value Range Interpretation Code Description Data Angela rce(s) Supporting Document(s) appearance, urine hazy clear Appearance, Urine [place] ([facility]) pH,urine 5.0 units 5.0-9.0 pH,urine JON[place]AN ([facility]) color, urine yellow yellow Color, Urine J[place]AN ([facility]) specific gravity urine auto 1.002-1.035 Specifi c Beccaria Urine Auto JONATAN ([facility]) glucose, urine (UA) auto negative negative Glucose, Ur ine (UA) Auto [facility] ([facility]) protein, urine auto negative negative Protein, Urine A uto [facility] ([facility]) ketone, urine auto 1+ negative Above high normal Ketone, Ur ine Auto [facility]ON[place]AN ([facility]) bilirubin, urine auto negative negative Bilirubin, Uri ne Auto [facility] ([facility]) urobilinogen, urine auto 0.2 mg/dL 0.0-2.0 Urobilinoge n, Urine Auto [place] ([facility]) leukocyte esterase, urine auto negative negative Leukocyte Esterase, Urine Auto [place] ([facility]) nitrite, urine auto negative negative Nitrite, Urine A uto [place] ([facility]) blood, urine blood negative negative Blood, Urine Bloo d [facility] ([facility]) WBC, urine auto 6 /hpf 0-3 Above high normal WBC, Urine Au to [place]AN ([facility]) RBC, urine auto 2 /hpf 0-3 RBC, Urine Auto ATHE NA ([facility]) squamous epithelial cell ur AU 10 /hpf 0-6 Squam ous Epithelial Cell Ur AU [place] ([facility]) bacteria, urine auto negative negative Bacteria, Urine Auto [place] ([facility]) mucus, urine small negative Mucus, Urine [place]AN ([facility]) hyaline cast, urine auto 0 /lpf 0-1 Hyaline Victor Hugo t, Urine Auto J[place]AN ([facility]) ID Date Data Source [id number] 09/25/2020 08:10:00 AM EST [place] ([facility]) Name Value Range Interpretation Code Description Data Angela rce(s) Supporting Document(s) ID Date Data Source [id number] 09/25/2020 08:10:00 AM EST [place] ([facility]) Name Value Range Interpretation Code Description Data Angela rce(s) Supporting Document(s) appearance, urine hazy clear Appearance, Urine [place] ([facility]) pH,urine 5.0 units 5.0-9.0 pH,urine J[place]AN ([facility]) color, urine yellow yellow Color, Urine [facility]AN ([facility]) specific gravity urine auto 1.002-1.035 Specifi c Beccaria Urine Auto J[facility]AN ([facility]) protein, urine auto negative negative Protein, Urine A uto [facility] ([facility]) glucose, urine (UA) auto negative negative Glucose, Ur ine (UA) Auto [place] ([facility]) urobilinogen, urine auto 0.2 mg/dL 0.0-2.0 Urobilinoge n, Urine Auto [place] ([facility]) bilirubin, urine auto negative negative Bilirubin, Uri ne Auto [place] ([facility]) ketone, urine auto 1+ negative Above high normal Ketone, Ur ine Auto [place] ([facility]) nitrite, urine auto negative negative Nitrite, Urine A uto JONAATN ([facility]) leukocyte esterase, urine auto negative negative Leukocyte Esterase, Urine Auto [place] ([facility]) blood, urine blood negative negative Blood, Urine Bloo d [place] ([facility]) RBC, urine auto 2 /hpf 0-3 RBC, Urine Auto ATHE NA ([facility]) bacteria, urine auto negative negative Bacteria, Urine Auto [place] ([facility]) WBC, urine auto 6 /hpf 0-3 Above high normal WBC, Urine Au to [facility]AN ([facility]) squamous epithelial cell ur AU 10 /hpf 0-6 Squam ous Epithelial Cell Ur AU [place] ([facility]) mucus, urine small negative Mucus, Urine [facility] ([facility]) hyaline cast, urine auto 0 /lpf 0-1 Hyaline Victor Hugo t, Urine Auto [facility] ([facility]) ID Date Data Source [id number] 09/25/2020 08:10:00 AM EST [place] ([facility]) Name Value Range Interpretation Code Description Data Angela rce(s) Supporting Document(s) ID Date Data Source [id number] 09/25/2020 08:10:00 AM EST [place] ([facility]) Name Value Range Interpretation Code Description Data Angela rce(s) Supporting Document(s) color, urine yellow yellow Color, Urine J[place]AN ([facility]) appearance, urine hazy clear Appearance, Urine JONATAN ([facility]) pH,urine 5.0 units 5.0-9.0 pH,urine JONATAN ([facility]) specific gravity urine auto 1.002-1.035 Specifi c Beccaria Urine Auto JONATAN ([facility]) protein, urine auto negative negative Protein, Urine A uto JONATAN ([facility]) ketone, urine auto 1+ negative Above high normal Ketone, Ur ine Auto [place] ([facility]) urobilinogen, urine auto 0.2 mg/dL 0.0-2.0 Urobilinoge n, Urine Auto JONATAN ([facility]) glucose, urine (UA) auto negative negative Glucose, Ur ine (UA) Auto JONATAN ([facility]) bilirubin, urine auto negative negative Bilirubin, Uri ne Auto JONATAN ([facility]) nitrite, urine auto negative negative Nitrite, Urine A uto JONATAN ([facility]) blood, urine blood negative negative Blood, Urine Bloo d JONATAN ([facility]) leukocyte esterase, urine auto negative negative Leukocyte Esterase, Urine Auto JONATAN ([facility]) squamous epithelial cell ur AU 10 /hpf 0-6 Squam ous Epithelial Cell Ur AU JONATAN ([facility]) RBC, urine auto 2 /hpf 0-3 RBC, Urine Auto [place] ([facility]) bacteria, urine auto negative negative Bacteria, Urine Auto JONATAN ([facility]) WBC, urine auto 6 /hpf 0-3 Above high normal WBC, Urine Au to JONATAN ([facility]) mucus, urine small negative Mucus, Urine JONATAN (No [facility]) hyaline cast, urine auto 0 /lpf 0-1 Hyaline Victor Hugo t, Urine Auto JONATAN ([facility]) ID Date Data Source [id number] 09/25/2020 08:10:00 AM EST JONATAN ([facility]) Name Value Range Interpretation Code Description Data Angela rce(s) Supporting Document(s) ID Date Data Source [id number] 09/25/2020 08:10:00 AM EST JONATAN ([facility]) Name Value Range Interpretation Code Description Data Angela rce(s) Supporting Document(s) appearance, urine hazy clear Appearance, Urine JONATAN ([facility]) color, urine yellow yellow Color, Urine JONATAN (No [facility]) pH,urine 5.0 units 5.0-9.0 pH,urine JONATAN ([facility]) specific gravity urine auto 1.002-1.035 Specifi c Beccaria Urine Auto JONATAN ([facility]) glucose, urine (UA) auto negative negative Glucose, Ur ine (UA) Auto JONATAN ([facility]) protein, urine auto negative negative Protein, Urine A uto JONATAN ([facility]) urobilinogen, urine auto 0.2 mg/dL 0.0-2.0 Urobilinoge n, Urine Auto JONATAN ([facility]) bilirubin, urine auto negative negative Bilirubin, Uri ne Auto JONATAN ([facility]) ketone, urine auto 1+ negative Above high normal Ketone, Ur ine Auto [place]ON[place]AN ([facility]) nitrite, urine auto negative negative Nitrite, Urine A uto JONATAN ([facility]) leukocyte esterase, urine auto negative negative Leukocyte Esterase, Urine Auto JONATAN ([facility]) blood, urine blood negative negative Blood, Urine Bloo d JONATAN ([facility]) WBC, urine auto 6 /hpf 0-3 Above high normal WBC, Urine Au to JONATAN ([facility]) RBC, urine auto 2 /hpf 0-3 RBC, Urine Auto [place] NA ([facility]) bacteria, urine auto negative negative Bacteria, Urine Auto JONATAN ([facility]) squamous epithelial cell ur AU 10 /hpf 0-6 Squam ous Epithelial Cell Ur AU JONATAN ([facility]) mucus, urine small negative Mucus, Urine JONATAN (No [facility]) hyaline cast, urine auto 0 /lpf 0-1 Hyaline Victor Hugo t, Urine Auto JONATAN ([facility]) ID Date Data Source [id number] 09/25/2020 08:10:00 AM EST JONATAN ([facility]) Name Value Range Interpretation Code Description Data Angela rce(s) Supporting Document(s) ID Date Data Source [id number] 09/25/2020 08:10:00 AM EST JONATAN ([facility]) Name Value Range Interpretation Code Description Data Angela rce(s) Supporting Document(s) appearance, urine hazy clear Appearance, Urine JONATAN ([facility]) color, urine yellow yellow Color, Urine JONATAN (No [facility]) pH,urine 5.0 units 5.0-9.0 pH,urine JONATAN ([facility]) specific gravity urine auto 1.002-1.035 Specifi c Beccaria Urine Auto [place] ([facility]) glucose, urine (UA) auto negative negative Glucose, Ur ine (UA) Auto [place] ([facility]) protein, urine auto negative negative Protein, Urine A uto [place] ([facility]) urobilinogen, urine auto 0.2 mg/dL 0.0-2.0 Urobilinoge n, Urine Auto JONATAN ([facility]) bilirubin, urine auto negative negative Bilirubin, Uri ne Auto JONATAN ([facility]) ketone, urine auto 1+ negative Above high normal Ketone, Ur ine Auto [place]ON[place]AN ([facility]) blood, urine blood negative negative Blood, Urine Bloo d JONATAN ([facility]) leukocyte esterase, urine auto negative negative Leukocyte Esterase, Urine Auto JONATAN ([facility]) nitrite, urine auto negative negative Nitrite, Urine A uto JONATAN ([facility]) WBC, urine auto 6 /hpf 0-3 Above high normal WBC, Urine Au to JONATAN ([facility]) bacteria, urine auto negative negative Bacteria, Urine Auto JONATAN ([facility]) RBC, urine auto 2 /hpf 0-3 RBC, Urine Auto [place]HE NA ([facility]) squamous epithelial cell ur AU 10 /hpf 0-6 Squam ous Epithelial Cell Ur AU JONATAN ([facility]) mucus, urine small negative Mucus, Urine JNOATAN (No [facility]) hyaline cast, urine auto 0 /lpf 0-1 Hyaline Victor Hugo t, Urine Auto JONATAN ([facility]) ID Date Data Source [id number] 09/25/2020 08:10:00 AM EST JONATAN ([facility]) Name Value Range Interpretation Code Description Data Angela rce(s) Supporting Document(s) ID Date Data Source [id number] 09/25/2020 08:10:00 AM EST JONATAN ([facility]) Name Value Range Interpretation Code Description Data Angela rce(s) Supporting Document(s) color, urine yellow yellow Color, Urine JONATAN ([facility]) appearance, urine hazy clear Appearance, Urine JONATAN ([facility]) protein, urine auto negative negative Protein, Urine A mno JON[place]AN ([facility]) specific gravity urine auto 1.002-1.035 Specifi c Beccaria Urine Auto JONATAN ([facility]) pH,urine 5.0 units 5.0-9.0 pH,urine JONATAN ([facility]) urobilinogen, urine auto 0.2 mg/dL 0.0-2.0 Urobilinoge n, Urine Auto JONATAN ([facility]) ketone, urine auto 1+ negative Above high normal Ketone, Ur ine Auto [place] ([facility]) glucose, urine (UA) auto negative negative Glucose, Ur ine (UA) Auto [place] ([facility]) nitrite, urine auto negative negative Nitrite, Urine A uto JONATAN ([facility]) bilirubin, urine auto negative negative Bilirubin, Uri ne Auto JONATAN ([facility]) leukocyte esterase, urine auto negative negative Leukocyte Esterase, Urine Auto JONATAN ([facility]) RBC, urine auto 2 /hpf 0-3 RBC, Urine Auto [place] ([facility]) blood, urine blood negative negative Blood, Urine Bloo d JONATAN ([facility]) WBC, urine auto 6 /hpf 0-3 Above high normal WBC, Urine Au to JONATAN ([facility]) bacteria, urine auto negative negative Bacteria, Urine Auto JONATAN ([facility]) squamous epithelial cell ur AU 10 /hpf 0-6 Squam ous Epithelial Cell Ur AU JONATAN ([facility]) mucus, urine small negative Mucus, Urine JONATAN (No [facility]) hyaline cast, urine auto 0 /lpf 0-1 Hyaline Victor Hugo t, Urine Auto JONATAN ([facility]) ID Date Data Source [id number] 09/25/2020 08:10:00 AM EST JONATAN ([facility]) Name Value Range Interpretation Code Description Data Angela rce(s) Supporting Document(s) ID Date Data Source [id number] 09/25/2020 08:10:00 AM EST JONATAN ([facility]) Name Value Range Interpretation Code Description Data Angela rce(s) Supporting Document(s) appearance, urine hazy clear Appearance, Urine JONATAN ([facility]) color, urine yellow yellow Color, Urine JONATAN (No [facility]) specific gravity urine auto 1.002-1.035 Specifi c Beccaria Urine Auto JONATAN ([facility]) pH,urine 5.0 units 5.0-9.0 pH,urine JONATAN ([facility]) protein, urine auto negative negative Protein, Urine A uto JONATAN ([facility]) ketone, urine auto 1+ negative Above high normal Ketone, Ur ine Auto [place] ([facility]) urobilinogen, urine auto 0.2 mg/dL 0.0-2.0 Urobilinoge n, Urine Auto JONATAN ([facility]) glucose, urine (UA) auto negative negative Glucose, Ur ine (UA) Auto J[place]AN ([facility]) leukocyte esterase, urine auto negative negative Leukocyte Esterase, Urine Auto JONATAN ([facility]) nitrite, urine auto negative negative Nitrite, Urine A uto JONATAN ([facility]) bilirubin, urine auto negative negative Bilirubin, Uri ne Auto JONATAN ([facility]) RBC, urine auto 2 /hpf 0-3 RBC, Urine Auto [place] ([facility]) blood, urine blood negative negative Blood, Urine Bloo d JONATAN ([facility]) WBC, urine auto 6 /hpf 0-3 Above high normal WBC, Urine Au to JONATAN ([facility]) bacteria, urine auto negative negative Bacteria, Urine Auto JONATAN ([facility]) mucus, urine small negative Mucus, Urine JONATAN ([facility]) squamous epithelial cell ur AU 10 /hpf 0-6 Squam ous Epithelial Cell Ur AU JONATAN ([facility]) hyaline cast, urine auto 0 /lpf 0-1 Hyaline Victor Hugo t, Urine Auto JONATAN ([facility]) ID Date Data Source [id number] 09/25/2020 08:10:00 AM EST JONATAN ([facility]) Name Value Range Interpretation Code Description Data Angela rce(s) Supporting Document(s) ID Date Data Source [id number] 09/25/2020 08:10:00 AM EST JONATAN ([facility]) Name Value Range Interpretation Code Description Data Angela rce(s) Supporting Document(s) appearance, urine hazy clear Appearance, Urine JONATAN ([facility]) pH,urine 5.0 units 5.0-9.0 pH,urine JONATAN ([facility]) color, urine yellow yellow Color, Urine JONATAN ([facility]) specific gravity urine auto 1.002-1.035 Specifi c Beccaria Urine Auto JONATAN ([facility]) glucose, urine (UA) auto negative negative Glucose, Ur ine (UA) Auto JONATAN ([facility]) protein, urine auto negative negative Protein, Urine A uto JONATAN ([facility]) ketone, urine auto 1+ negative Above high normal Ketone, Ur ine Auto JONATAN ([facility]) urobilinogen, urine auto 0.2 mg/dL 0.0-2.0 Urobilinoge n, Urine Auto JONATAN ([facility]) bilirubin, urine auto negative negative Bilirubin, Uri ne Auto JONATAN ([facility]) nitrite, urine auto negative negative Nitrite, Urine A uto JONATAN ([facility]) leukocyte esterase, urine auto negative negative Leukocyte Esterase, Urine Auto JONATAN ([facility]) blood, urine blood negative negative Blood, Urine Bloo d JONATAN ([facility]) RBC, urine auto 2 /hpf 0-3 RBC, Urine Auto [place] ([facility]) bacteria, urine auto negative negative Bacteria, Urine Auto JONATAN ([facility]) WBC, urine auto 6 /hpf 0-3 Above high normal WBC, Urine Au to JONATAN ([facility]) squamous epithelial cell ur AU 10 /hpf 0-6 Squam ous Epithelial Cell Ur AU JONATAN ([facility]) mucus, urine small negative Mucus, Urine JONATAN (No [facility]) hyaline cast, urine auto 0 /lpf 0-1 Hyaline Victor Hugo t, Urine Auto JONATAN ([facility]) ID Date Data Source [id number] 09/25/2020 08:10:00 AM EST JONATAN ([facility]) Name Value Range Interpretation Code Description Data Angela rce(s) Supporting Document(s) ID Date Data Source [id number] 09/25/2020 08:10:00 AM EST JONATAN ([facility]) Name Value Range Interpretation Code Description Data Angela rce(s) Supporting Document(s) appearance, urine hazy clear Appearance, Urine JONATAN ([facility]) pH,urine 5.0 units 5.0-9.0 pH,urine JONATAN ([facility]) color, urine yellow yellow Color, Urine JONATAN (No [facility]) specific gravity urine auto 1.002-1.035 Specifi c Beccaria Urine Auto JONATAN ([facility]) ketone, urine auto 1+ negative Above high normal Ketone, Ur ine Auto [place]AN ([facility]) protein, urine auto negative negative Protein, Urine A uto JON[place]AN ([facility]) glucose, urine (UA) auto negative negative Glucose, Ur ine (UA) Auto [place]AN ([facility]) urobilinogen, urine auto 0.2 mg/dL 0.0-2.0 Urobilinoge n, Urine Auto JONATAN ([facility]) bilirubin, urine auto negative negative Bilirubin, Uri ne Auto JONATAN ([facility]) nitrite, urine auto negative negative Nitrite, Urine A uto J[place]AN ([facility]) leukocyte esterase, urine auto negative negative Leukocyte Esterase, Urine Auto J[place]AN ([facility]) blood, urine blood negative negative Blood, Urine Bloo d JONATAN ([facility]) bacteria, urine auto negative negative Bacteria, Urine Auto JON[place]AN ([facility]) WBC, urine auto 6 /hpf 0-3 Above high normal WBC, Urine Au to JONATAN ([facility]) RBC, urine auto 2 /hpf 0-3 RBC, Urine Auto [place] ([facility]) mucus, urine small negative Mucus, Urine JONATAN (No [facility]) hyaline cast, urine auto 0 /lpf 0-1 Hyaline Victor Hugo t, Urine Auto JONATAN ([facility]) squamous epithelial cell ur AU 10 /hpf 0-6 Squam ous Epithelial Cell Ur AU JONATAN ([facility]) ID Date Data Source [id number] 09/25/2020 08:10:00 AM EST JONATAN ([facility]) Name Value Range Interpretation Code Description Data Angela rce(s) Supporting Document(s) ID Date Data Source [id number] 09/25/2020 08:10:00 AM EST JONATAN ([facility]) Name Value Range Interpretation Code Description Data Angela rce(s) Supporting Document(s) appearance, urine hazy clear Appearance, Urine JONATAN ([facility]) pH,urine 5.0 units 5.0-9.0 pH,urine JONATAN ([facility]) specific gravity urine auto 1.002-1.035 Specifi c Beccaria Urine Auto JONATAN ([facility]) color, urine yellow yellow Color, Urine JONATAN (No [facility]) protein, urine auto negative negative Protein, Urine A uto JONATAN ([facility]) ketone, urine auto 1+ negative Above high normal Ketone, Ur ine Auto [place]AN ([facility]) glucose, urine (UA) auto negative negative Glucose, Ur ine (UA) Auto [place]AN ([facility]) urobilinogen, urine auto 0.2 mg/dL 0.0-2.0 Urobilinoge n, Urine Auto JONATAN ([facility]) bilirubin, urine auto negative negative Bilirubin, Uri ne Auto JONATAN ([facility]) nitrite, urine auto negative negative Nitrite, Urine A uto JONATAN ([facility]) leukocyte esterase, urine auto negative negative Leukocyte Esterase, Urine Auto JONATAN ([facility]) blood, urine blood negative negative Blood, Urine Bloo d JONATAN ([facility]) squamous epithelial cell ur AU 10 /hpf 0-6 Squam ous Epithelial Cell Ur AU JONATAN ([facility]) RBC, urine auto 2 /hpf 0-3 RBC, Urine Auto [place] ([facility]) WBC, urine auto 6 /hpf 0-3 Above high normal WBC, Urine Au to JONATAN ([facility]) bacteria, urine auto negative negative Bacteria, Urine Auto JON[place]AN ([facility]) mucus, urine small negative Mucus, Urine JONATAN (No [facility]) hyaline cast, urine auto 0 /lpf 0-1 Hyaline Victor Hugo t, Urine Auto JONATAN ([facility]) ID Date Data Source [id number] 09/25/2020 08:10:00 AM EST JONATAN ([facility]) Name Value Range Interpretation Code Description Data Angela rce(s) Supporting Document(s) ID Date Data Source [id number] 09/25/2020 08:10:00 AM EST JONATAN ([facility]) Name Value Range Interpretation Code Description Data Angela rce(s) Supporting Document(s) appearance, urine hazy clear Appearance, Urine JONATAN ([facility]) color, urine yellow yellow Color, Urine JONATAN (No [facility]) pH,urine 5.0 units 5.0-9.0 pH,urine JONATAN ([facility]) protein, urine auto negative negative Protein, Urine A uto J[place]AN ([facility]) specific gravity urine auto 1.002-1.035 Specifi c Beccaria Urine Auto JONATAN ([facility]) ketone, urine auto 1+ negative Above high normal Ketone, Ur ine Auto J[place]AN ([facility]) glucose, urine (UA) auto negative negative Glucose, Ur ine (UA) Auto J[place]AN ([facility]) urobilinogen, urine auto 0.2 mg/dL 0.0-2.0 Urobilinoge n, Urine Auto JON[place]AN ([facility]) bilirubin, urine auto negative negative Bilirubin, Uri ne Auto JON[place]AN ([facility]) leukocyte esterase, urine auto negative negative Leukocyte Esterase, Urine Auto JONATAN ([facility]) nitrite, urine auto negative negative Nitrite, Urine A uto JONATAN ([facility]) bacteria, urine auto negative negative Bacteria, Urine Auto JONATAN ([facility]) RBC, urine auto 2 /hpf 0-3 RBC, Urine Auto AT[place] NA ([facility]) blood, urine blood negative negative Blood, Urine Bloo d JONATAN ([facility]) WBC, urine auto 6 /hpf 0-3 Above high normal WBC, Urine Au to JONATAN ([facility]) mucus, urine small negative Mucus, Urine JONATAN (No [facility]) squamous epithelial cell ur AU 10 /hpf 0-6 Squam ous Epithelial Cell Ur AU JONATAN ([facility]) hyaline cast, urine auto 0 /lpf 0-1 Hyaline Victor Hugo t, Urine Auto JONATAN ([facility]) ID Date Data Source [id number] 09/25/2020 08:10:00 AM EST JONATAN ([facility]) Name Value Range Interpretation Code Description Data Angela rce(s) Supporting Document(s) ID Date Data Source [id number] 09/25/2020 08:10:00 AM EST J[place]ATAN ([facility]) Name Value Range Interpretation Code Description Data Angela rce(s) Supporting Document(s) appearance, urine hazy clear Appearance, Urine JONATAN ([facility]) pH,urine 5.0 units 5.0-9.0 pH,urine JONATAN ([facility]) specific gravity urine auto 1.002-1.035 Specifi c Beccaria Urine Auto JONATAN ([facility]) color, urine yellow yellow Color, Urine JONATAN (No [facility]) protein, urine auto negative negative Protein, Urine A uto JONATAN ([facility]) glucose, urine (UA) auto negative negative Glucose, Ur ine (UA) Auto JON[place]AN ([facility]) ketone, urine auto 1+ negative Above high normal Ketone, Ur ine Auto J[place]AN ([facility]) nitrite, urine auto negative negative Nitrite, Urine A uto JONATAN ([facility]) bilirubin, urine auto negative negative Bilirubin, Uri ne Auto [place] ([facility]) urobilinogen, urine auto 0.2 mg/dL 0.0-2.0 Urobilinoge n, Urine Auto JONATAN ([facility]) blood, urine blood negative negative Blood, Urine Bloo d JONATAN ([facility]) WBC, urine auto 6 /hpf 0-3 Above high normal WBC, Urine Au to JONATAN ([facility]) leukocyte esterase, urine auto negative negative Leukocyte Esterase, Urine Auto JONATAN ([facility]) mucus, urine small negative Mucus, Urine JONATAN ([facility]) RBC, urine auto 2 /hpf 0-3 RBC, Urine Auto ATHE NA ([facility]) squamous epithelial cell ur AU 10 /hpf 0-6 Squam ous Epithelial Cell Ur AU JONATAN ([facility]) bacteria, urine auto negative negative Bacteria, Urine Auto JONATAN ([facility]) hyaline cast, urine auto 0 /lpf 0-1 Hyaline Victor Hugo t, Urine Auto JONATAN ([facility]) ID Date Data Source [id number] 09/25/2020 08:10:00 AM EST JONATAN ([facility]) Name Value Range Interpretation Code Description Data Angela rce(s) Supporting Document(s) ID Date Data Source [id number] 09/25/2020 08:10:00 AM EST JONATAN ([facility]) Name Value Range Interpretation Code Description Data Angela rce(s) Supporting Document(s) appearance, urine hazy clear Appearance, Urine JONATAN ([facility]) color, urine yellow yellow Color, Urine JONATAN (No [facility]) pH,urine 5.0 units 5.0-9.0 pH,urine JONATAN ([facility]) ketone, urine auto 1+ negative Above high normal Ketone, Ur ine Auto JONATAN ([facility]) specific gravity urine auto 1.002-1.035 Specifi c Beccaria Urine Auto JONATAN ([facility]) glucose, urine (UA) auto negative negative Glucose, Ur ine (UA) Auto JON[place]AN ([facility]) protein, urine auto negative negative Protein, Urine A uto JONATAN ([facility]) nitrite, urine auto negative negative Nitrite, Urine A mno JON[place]AN ([facility]) urobilinogen, urine auto 0.2 mg/dL 0.0-2.0 Urobilinoge n, Urine Auto JONATAN ([facility]) bilirubin, urine auto negative negative Bilirubin, Uri ne Auto JONATAN ([facility]) blood, urine blood negative negative Blood, Urine Bloo d JONATAN ([facility]) WBC, urine auto 6 /hpf 0-3 Above high normal WBC, Urine Au to JONATAN ([facility]) leukocyte esterase, urine auto negative negative Leukocyte Esterase, Urine Auto JONATAN ([facility]) squamous epithelial cell ur AU 10 /hpf 0-6 Squam ous Epithelial Cell Ur AU JONATAN ([facility]) bacteria, urine auto negative negative Bacteria, Urine Auto JONATAN ([facility]) RBC, urine auto 2 /hpf 0-3 RBC, Urine Auto ATHE NA ([facility]) hyaline cast, urine auto 0 /lpf 0-1 Hyaline Victor Hugo t, Urine Auto JONATAN ([facility]) mucus, urine small negative Mucus, Urine JONATAN (No [facility]) ID Date Data Source [id number] 09/25/2020 08:10:00 AM EST JONATAN ([facility]) Name Value Range Interpretation Code Description Data Angela rce(s) Supporting Document(s) ID Date Data Source [id number] 09/25/2020 08:10:00 AM EST JONATAN ([facility]) Name Value Range Interpretation Code Description Data Angela rce(s) Supporting Document(s) appearance, urine hazy clear Appearance, Urine JONATAN ([facility]) color, urine yellow yellow Color, Urine JONATAN (No [facility]) pH,urine 5.0 units 5.0-9.0 pH,urine JONATAN ([facility]) specific gravity urine auto 1.002-1.035 Specifi c Beccaria Urine Auto JONATAN ([facility]) protein, urine auto negative negative Protein, Urine A uto JONATAN ([facility]) glucose, urine (UA) auto negative negative Glucose, Ur ine (UA) Auto JONATAN ([facility]) ketone, urine auto 1+ negative Above high normal Ketone, Ur ine Auto JONATAN ([facility]) bilirubin, urine auto negative negative Bilirubin, Uri ne Auto JONATAN ([facility]) urobilinogen, urine auto 0.2 mg/dL 0.0-2.0 Urobilinoge n, Urine Auto JONATAN ([facility]) leukocyte esterase, urine auto negative negative Leukocyte Esterase, Urine Auto JONATAN ([facility]) nitrite, urine auto negative negative Nitrite, Urine A uto JONATAN ([facility]) WBC, urine auto 6 /hpf 0-3 Above high normal WBC, Urine Au to JONATAN ([facility]) blood, urine blood negative negative Blood, Urine Bloo d JONATAN ([facility]) RBC, urine auto 2 /hpf 0-3 RBC, Urine Auto ATHE NA ([facility]) bacteria, urine auto negative negative Bacteria, Urine Auto JONATAN ([facility]) squamous epithelial cell ur AU 10 /hpf 0-6 Squam ous Epithelial Cell Ur AU JONATAN ([facility]) hyaline cast, urine auto 0 /lpf 0-1 Hyaline Victor Hugo t, Urine Auto JONATAN ([facility]) mucus, urine small negative Mucus, Urine JONATAN (No [facility]) ID Date Data Source [id number] 09/25/2020 08:10:00 AM EST JONATAN ([facility]) Name Value Range Interpretation Code Description Data Angela rce(s) Supporting Document(s) ID Date Data Source [id number] 09/25/2020 08:10:00 AM EST JONATAN ([facility]) Name Value Range Interpretation Code Description Data Angela rce(s) Supporting Document(s) appearance, urine hazy clear Appearance, Urine JONATAN ([facility]) color, urine yellow yellow Color, Urine JONATAN (No [facility]) pH,urine 5.0 units 5.0-9.0 pH,urine JONATAN ([facility]) glucose, urine (UA) auto negative negative Glucose, Ur ine (UA) Auto JONATAN ([facility]) specific gravity urine auto 1.002-1.035 Specifi c Beccaria Urine Auto JONATAN ([facility]) protein, urine auto negative negative Protein, Urine A uto JONATAN ([facility]) bilirubin, urine auto negative negative Bilirubin, Uri ne Auto JONATAN ([facility]) ketone, urine auto 1+ negative Above high normal Ketone, Ur ine Auto JONATAN ([facility]) urobilinogen, urine auto 0.2 mg/dL 0.0-2.0 Urobilinoge n, Urine Auto JONATAN ([facility]) blood, urine blood negative negative Blood, Urine Bloo d JONATAN ([facility]) WBC, urine auto 6 /hpf 0-3 Above high normal WBC, Urine Au to JONATAN ([facility]) leukocyte esterase, urine auto negative negative Leukocyte Esterase, Urine Auto JONATAN ([facility]) nitrite, urine auto negative negative Nitrite, Urine A uto JONATAN ([facility]) bacteria, urine auto negative negative Bacteria, Urine Auto JONATAN ([facility]) RBC, urine auto 2 /hpf 0-3 RBC, Urine Auto ATHE NA ([facility]) squamous epithelial cell ur AU 10 /hpf 0-6 Squam ous Epithelial Cell Ur AU JONATAN ([facility]) hyaline cast, urine auto 0 /lpf 0-1 Hyaline Victor Hugo t, Urine Auto JONATAN ([facility]) mucus, urine small negative Mucus, Urine JONATAN (No [facility]) ID Date Data Source [id number] 09/25/2020 08:10:00 AM EST JONATAN ([facility]) Name Value Range Interpretation Code Description Data Angela rce(s) Supporting Document(s) ID Date Data Source [id number] 09/25/2020 08:10:00 AM EST JONATAN ([facility]) Name Value Range Interpretation Code Description Data Angela rce(s) Supporting Document(s) appearance, urine hazy clear Appearance, Urine JONATAN ([facility]) color, urine yellow yellow Color, Urine JONATAN (No [facility]) pH,urine 5.0 units 5.0-9.0 pH,urine JONATAN ([facility]) protein, urine auto negative negative Protein, Urine A uto JONATAN ([facility]) specific gravity urine auto 1.002-1.035 Specifi c Beccaria Urine Auto JONATAN ([facility]) ketone, urine auto 1+ negative Above high normal Ketone, Ur ine Auto JONATAN ([facility]) glucose, urine (UA) auto negative negative Glucose, Ur ine (UA) Auto JONATAN ([facility]) urobilinogen, urine auto 0.2 mg/dL 0.0-2.0 Urobilinoge n, Urine Auto JONATAN ([facility]) bilirubin, urine auto negative negative Bilirubin, Uri ne Auto JONATAN ([facility]) nitrite, urine auto negative negative Nitrite, Urine A uto JONATAN ([facility]) blood, urine blood negative negative Blood, Urine Bloo d JONATAN ([facility]) leukocyte esterase, urine auto negative negative Leukocyte Esterase, Urine Auto JONATAN ([facility]) RBC, urine auto 2 /hpf 0-3 RBC, Urine Auto ATHE NA ([facility]) WBC, urine auto 6 /hpf 0-3 Above high normal WBC, Urine Au to JONATAN ([facility]) bacteria, urine auto negative negative Bacteria, Urine Auto JONATAN ([facility]) squamous epithelial cell ur AU 10 /hpf 0-6 Squam ous Epithelial Cell Ur AU JONATAN ([facility]) hyaline cast, urine auto 0 /lpf 0-1 Hyaline Victor Hugo t, Urine Auto JONATAN ([facility]) mucus, urine small negative Mucus, Urine JONATAN (No [facility]) ID Date Data Source [id number] 09/25/2020 08:10:00 AM EST JONATAN ([facility]) Name Value Range Interpretation Code Description Data Angela rce(s) Supporting Document(s) ID Date Data Source [id number] 09/25/2020 08:10:00 AM EST JONATAN ([facility]) Name Value Range Interpretation Code Description Data Angela rce(s) Supporting Document(s) appearance, urine hazy clear Appearance, Urine JONATAN ([facility]) color, urine yellow yellow Color, Urine JONATAN (No [facility]) pH,urine 5.0 units 5.0-9.0 pH,urine JONATAN ([facility]) specific gravity urine auto 1.002-1.035 Specifi c Beccaria Urine Auto JONATAN ([facility]) protein, urine auto negative negative Protein, Urine A uto JONATAN ([facility]) glucose, urine (UA) auto negative negative Glucose, Ur ine (UA) Auto JONATAN ([facility]) urobilinogen, urine auto 0.2 mg/dL 0.0-2.0 Urobilinoge n, Urine Auto JONATAN ([facility]) ketone, urine auto 1+ negative Above high normal Ketone, Ur ine Auto JONATAN ([facility]) bilirubin, urine auto negative negative Bilirubin, Uri ne Auto JONATAN ([facility]) blood, urine blood negative negative Blood, Urine Bloo d JONATAN ([facility]) nitrite, urine auto negative negative Nitrite, Urine A uto JONATAN ([facility]) leukocyte esterase, urine auto negative negative Leukocyte Esterase, Urine Auto JONATAN ([facility]) bacteria, urine auto negative negative Bacteria, Urine Auto JONATAN ([facility]) WBC, urine auto 6 /hpf 0-3 Above high normal WBC, Urine Au to JONATAN ([facility]) RBC, urine auto 2 /hpf 0-3 RBC, Urine Auto ATHE NA ([facility]) squamous epithelial cell ur AU 10 /hpf 0-6 Squam ous Epithelial Cell Ur AU JONATAN ([facility]) mucus, urine small negative Mucus, Urine JONATAN (No [facility]) hyaline cast, urine auto 0 /lpf 0-1 Hyaline Victor Hugo t, Urine Auto JONATAN ([facility]) ID Date Data Source [id number] 09/25/2020 08:10:00 AM EST JONATAN ([facility]) Name Value Range Interpretation Code Description Data Angela rce(s) Supporting Document(s) ID Date Data Source [id number] 09/25/2020 08:10:00 AM EST JONATAN ([facility]) Name Value Range Interpretation Code Description Data Angela rce(s) Supporting Document(s) appearance, urine hazy clear Appearance, Urine JONATAN ([facility]) specific gravity urine auto 1.002-1.035 Specifi c Beccaria Urine Auto JONATAN ([facility]) pH,urine 5.0 units 5.0-9.0 pH,urine JONATAN ([facility]) color, urine yellow yellow Color, Urine JONATAN (No [facility]) ketone, urine auto 1+ negative Above high normal Ketone, Ur ine Auto JONATAN ([facility]) glucose, urine (UA) auto negative negative Glucose, Ur ine (UA) Auto JONATAN ([facility]) protein, urine auto negative negative Protein, Urine A uto JONATAN ([facility]) urobilinogen, urine auto 0.2 mg/dL 0.0-2.0 Urobilinoge n, Urine Auto JONATAN ([facility]) nitrite, urine auto negative negative Nitrite, Urine A uto JONATAN ([facility]) bilirubin, urine auto negative negative Bilirubin, Uri ne Auto JONATAN ([facility]) leukocyte esterase, urine auto negative negative Leukocyte Esterase, Urine Auto JONATAN ([facility]) WBC, urine auto 6 /hpf 0-3 Above high normal WBC, Urine Au to JONATAN ([facility]) blood, urine blood negative negative Blood, Urine Bloo d JONATAN ([facility]) squamous epithelial cell ur AU 10 /hpf 0-6 Squam ous Epithelial Cell Ur AU JONATAN ([facility]) bacteria, urine auto negative negative Bacteria, Urine Auto JONATAN ([facility]) RBC, urine auto 2 /hpf 0-3 RBC, Urine Auto ATHE NA ([facility]) mucus, urine small negative Mucus, Urine JONATAN (No [facility]) hyaline cast, urine auto 0 /lpf 0-1 Hyaline Victor Hugo t, Urine Auto JONATAN ([facility]) ID Date Data Source [id number] 09/25/2020 08:10:00 AM EST JONATAN ([facility]) Name Value Range Interpretation Code Description Data Angela rce(s) Supporting Document(s) ID Date Data Source [id number] 09/25/2020 08:10:00 AM EST JONATAN ([facility]) Name Value Range Interpretation Code Description Data Angela rce(s) Supporting Document(s) appearance, urine hazy clear Appearance, Urine JONATAN ([facility]) pH,urine 5.0 units 5.0-9.0 pH,urine JONATAN ([facility]) color, urine yellow yellow Color, Urine JONATAN (No [facility]) glucose, urine (UA) auto negative negative Glucose, Ur ine (UA) Auto JONATAN ([facility]) protein, urine auto negative negative Protein, Urine A uto JONATAN ([facility]) specific gravity urine auto 1.002-1.035 Specifi c Beccaria Urine Auto JONATAN ([facility]) ketone, urine auto 1+ negative Above high normal Ketone, Ur ine Auto JONATAN ([facility]) bilirubin, urine auto negative negative Bilirubin, Uri ne Auto JONATAN ([facility]) urobilinogen, urine auto 0.2 mg/dL 0.0-2.0 Urobilinoge n, Urine Auto JONATAN ([facility]) nitrite, urine auto negative negative Nitrite, Urine A uto JONATAN ([facility]) WBC, urine auto 6 /hpf 0-3 Above high normal WBC, Urine Au to JONATAN ([facility]) blood, urine blood negative negative Blood, Urine Bloo d JONATAN ([facility]) leukocyte esterase, urine auto negative negative Leukocyte Esterase, Urine Auto JONATAN ([facility]) bacteria, urine auto negative negative Bacteria, Urine Auto JONATAN ([facility]) squamous epithelial cell ur AU 10 /hpf 0-6 Squam ous Epithelial Cell Ur AU JONATAN ([facility]) RBC, urine auto 2 /hpf 0-3 RBC, Urine Auto ATHE NA ([facility]) mucus, urine small negative Mucus, Urine JONATAN (No [facility]) hyaline cast, urine auto 0 /lpf 0-1 Hyaline Victor Hugo t, Urine Auto JONATAN ([facility]) ID Date Data Source [id number] 09/25/2020 08:05:00 AM EST JONATAN ([facility]) Name Value Range Interpretation Code Description Data Angela rce(s) Supporting Document(s) Hemoglobin A1c/Hemoglobin.total in Blood 7.7 % Hemoglobin a1C JONATAN ([facility]) estimated average glucose 174 mg/dL 60-110 Above high norm al Estimated Average Glucose JONATAN ([facility]) ID Date Data Source [id number] 09/25/2020 08:05:00 AM EST JONATAN ([facility]) Name Value Range Interpretation Code Description Data Angela rce(s) Supporting Document(s) total 25(oh) vitamin D 23.2 NG/mL 30.0-100.0 Below low normal T otal 25(Oh) Vitamin D JONATAN ([facility]) ID Date Data Source [id number] 09/25/2020 08:05:00 AM EST JONATAN ([facility]) Name Value Range Interpretation Code Description Data Angela rce(s) Supporting Document(s) thyroid stimulating hormone 5.730 uIU/mL 0.358-3.740 Above high no rmal Thyroid Stimulating Hormone JONATAN ([facility]) free T4 0.99 NG/dL 0.76-1.46 Free T4 JONATAN ([facility]) ID Date Data Source [id number] 09/25/2020 08:05:00 AM EST JONATAN ([facility]) Name Value Range Interpretation Code Description Data Angela rce(s) Supporting Document(s) triglycerides level 325 mg/dL <150 Above high normal Triglycer ides Level JONATAN ([facility]) HDL cholesterol 35 mg/dL >40 Below low normal HDL Cholestero l JONATAN ([facility]) cholesterol level 206 mg/dL <200 Above high normal Cholesterol Level JONATAN ([facility]) Cholesterol in LDL [Mass/volume] in Serum or Plasma 106 mg/dL <100 Above high normal LDL Cholesterol JONATAN ([facility]) non-HDL-C 171 mg/dL Non-hdl-c JONATAN ([facility]) cholesterol risk ratio <5 Above high normal Choles terol Risk Ratio JONATAN ([facility]) ID Date Data Source [id number] 09/25/2020 08:05:00 AM EST JONATAN ([facility]) Name Value Range Interpretation Code Description Data Angela rce(s) Supporting Document(s) glucose, fasting 175 mg/dL 70-100 Above high normal Glucose, Fas ting JONATAN ([facility]) creatinine for GFR 0.68 mg/dL 0.55-1.30 Creatinine for GF R JONATAN ([facility]) blood urea nitrogen 15 mg/dL 7-18 Blood Urea Nitro gen JONATAN ([facility]) potassium serum 4.6 mEq/L 3.5-5.1 Potassium Serum ATHE NA ([facility]) sodium level 136 mEq/L 136-145 Sodium Level JONATAN (No [facility]) chloride level 100 mEq/L 98-107 Chloride Level JONATAN ([facility]) glomerular filtration rate > 60.0 >60 Glomerula r Filtration Rate JONATAN ([facility]) calcium level 9.3 mg/dL 8.5-10.1 Calcium Level JONATAN ( [facility]) anion gap 8 mEq/L 8-16 Anion Gap JONATAN ([facility]) carbon dioxide level 28 mEq/L 21-32 Carbon Dioxide Level JONATAN ([facility]) ALT/SGPT 30 U/L 12-78 ALT/SGPT JONATAN ([facility]) total protein 7.2 gm/dL 6.4-8.2 Total Protein JONATAN ( [facility]) AST/SGOT 26 U/L 7-37 AST/SGOT JONATAN ([facility]) alkaline phosphatase 100 U/L 45-117 Alkaline Phosph atase JONATAN ([facility]) bilirubin,total 0.3 mg/dL 0.2-1.0 Bilirubin,total ATHE NA ([facility]) albumin 3.6 gm/dL 3.2-5.2 Albumin JONATAN ([facility]) albumin/globulin ratio 1.2-2.2 Below low normal Albumin /globulin Ratio JONATAN ([facility]) ID Date Data Source [id number] 09/25/2020 08:05:00 AM EST JONATAN ([facility]) Name Value Range Interpretation Code Description Data Angela rce(s) Supporting Document(s) white blood count 7.0 10 4.0-10.0 White Blood Count JONATAN ([facility]) red blood count 5.04 10 4.00-5.40 Red Blood Count ATHE NA ([facility]) hemoglobin 12.7 g/dL 12.0-15.5 Hemoglobin JONATAN ([facility]) hematocrit 41.6 % 36.0-47.0 Hematocrit JONATAN ([facility]) mean corpuscular hemoglobin 25.2 pg 27.0-33.0 Below low nor mal Mean Corpuscular Hemoglobin JONATAN ([facility]) mean corpuscular volume 82.5 fL 80.0-96.0 Mean Corpusc ular Volume JONATAN ([facility]) mean corpuscular HGB conc 30.5 g/dL 32.0-36.5 Below low rosalio l Mean Corpuscular HGB Conc JONATAN ([facility]) red cell distribution width 14.7 % 11.5-14.5 Above high no rmal Red Cell Distribution Width JONATAN ([facility]) platelet count, automated 234 10 150-450 Platelet C ount, Automated JONATAN ([facility]) neutrophils % 47.5 % 36.0-66.0 Neutrophils % [place] ( [facility]) mono % 8.5 % 0.0-5.0 Above high normal [place] % JONATAN ([facility]) baso % 0.4 % 0.0-1.0 Baso % JONATAN ([facility]) lymph % 39.3 % 24.0-44.0 Lymph % JONATAN ([facility]) eos % 3.6 % 0.0-3.0 Above high normal Eos % JONATAN ([facility]) neutrophils # 3.3 10 1.5-8.5 Neutrophils # JONATAN ( [facility]) nucleated red blood cell % 0.0 % 0-0 Nucleated Red Blood Cell % JONATAN ([facility]) immature granulocyte % 0.7 % 0-3.0 Immature Gran ulocyte % JONATAN ([facility]) eos # 0.3 10 0.0-0.5 Eos # JONATAN ([facility]) mono # 0.6 10 0.0-0.8 [place] # JONATAN ([facility]) lymph # 2.7 10 1.5-5.0 Lymph # JONATAN ([facility]) baso # 0.0 10 0.0-0.2 Baso # JONATAN ([facility]) ID Date Data Source [id number] 09/25/2020 08:05:00 AM EST JONATAN ([facility]) Name Value Range Interpretation Code Description Data Angela rce(s) Supporting Document(s) estimated average glucose 174 mg/dL 60-110 Above high norm al Estimated Average Glucose [place] ([facility]) Hemoglobin A1c/Hemoglobin.total in Blood 7.7 % Hemoglobin a1C [place] ([facility]) ID Date Data Source [id number] 09/25/2020 08:05:00 AM EST JONATAN ([facility]) Name Value Range Interpretation Code Description Data Angela rce(s) Supporting Document(s) total 25(oh) vitamin D 23.2 NG/mL 30.0-100.0 Below low normal T otal 25(Oh) Vitamin D [facility]) ID Date Data Source [id number] 09/25/2020 08:05:00 AM EST JONATAN ([facility]) Name Value Range Interpretation Code Description Data Angela rce(s) Supporting Document(s) Hemoglobin A1c/Hemoglobin.total in Blood 7.7 % Hemoglobin a1C JONATAN ([facility]) estimated average glucose 174 mg/dL 60-110 Above high norm al Estimated Average Glucose [place] ([facility]) ID Date Data Source [id number] 09/25/2020 08:05:00 [facility] Name Value Range Interpretation Code Description Data Angela rce(s) Supporting Document(s) total 25(oh) vitamin D 23.2 NG/mL 30.0-100.0 Below low normal T otal 25(Oh) Vitamin D JONATAN ([facility]) ID Date Data Source [id number] 09/25/2020 08:05:00 AM EST JONATAN ([facility]) Name Value Range Interpretation Code Description Data Angela rce(s) Supporting Document(s) thyroid stimulating hormone 5.730 uIU/mL 0.358-3.740 Above high no rmal Thyroid Stimulating Hormone JONATAN ([facility]) free T4 0.99 NG/dL 0.76-1.46 Free T4 [place] ([facility]) ID Date Data Source [id number] 09/25/2020 08:05:00 AM EST [place] ([facility]) Name Value Range Interpretation Code Description Data Angela rce(s) Supporting Document(s) triglycerides level 325 mg/dL <150 Above high normal Triglycer ides Level JONATAN ([facility]) HDL cholesterol 35 mg/dL >40 Below low normal HDL Cholestero l JONATAN ([facility]) cholesterol level 206 mg/dL <200 Above high normal Cholesterol Level JONATAN ([facility]) Cholesterol in LDL [Mass/volume] in Serum or Plasma 106 mg/dL <100 Above high normal LDL Cholesterol JONATAN ([facility]) cholesterol risk ratio <5 Above high normal Choles terol Risk Ratio JONATAN ([facility]) non-HDL-C 171 mg/dL Non-hdl-c [place] ([facility]) ID Date Data Source [id number] 09/25/2020 08:05:00 AM EST [place] ([facility]) Name Value Range Interpretation Code Description Data Angela rce(s) Supporting Document(s) blood urea nitrogen 15 mg/dL 7-18 Blood Urea Nitro gen [place] ([facility]) glucose, fasting 175 mg/dL 70-100 Above high normal Glucose, Fas ting [place] ([facility]) creatinine for GFR 0.68 mg/dL 0.55-1.30 Creatinine for GF R [place] ([facility]) potassium serum 4.6 mEq/L 3.5-5.1 Potassium Serum [place] NA ([facility]) chloride level 100 mEq/L 98-107 Chloride Level [place] ([facility]) sodium level 136 mEq/L 136-145 Sodium Level [facility] ([facility]) glomerular filtration rate > 60.0 >60 Glomerula r Filtration Rate [place] ([facility]) carbon dioxide level 28 mEq/L 21-32 Carbon Dioxide Level [place] ([facility]) calcium level 9.3 mg/dL 8.5-10.1 Calcium Level [place] ( [facility]) anion gap 8 mEq/L 8-16 Anion Gap [place] ([facility]) ALT/SGPT 30 U/L 12-78 ALT/SGPT [place] ([facility]) alkaline phosphatase 100 U/L 45-117 Alkaline Phosph atase [place] ([facility]) AST/SGOT 26 U/L 7-37 AST/SGOT [place] ([facility]) total protein 7.2 gm/dL 6.4-8.2 Total Protein [place] ( [facility]) albumin 3.6 gm/dL 3.2-5.2 Albumin [place] ([facility]) albumin/globulin ratio 1.2-2.2 Below low normal Albumin /globulin Ratio [place] ([facility]) bilirubin,total 0.3 mg/dL 0.2-1.0 Bilirubin,total [place] ([facility]) ID Date Data Source [id number] 09/25/2020 08:05:00 AM EST [place] ([facility]) Name Value Range Interpretation Code Description Data Angela rce(s) Supporting Document(s) red blood count 5.04 10 4.00-5.40 Red Blood Count [place] NA ([facility]) white blood count 7.0 10 4.0-10.0 White Blood Count [place] ([facility]) hemoglobin 12.7 g/dL 12.0-15.5 Hemoglobin [place] ([facility]) hematocrit 41.6 % 36.0-47.0 Hematocrit [place] ([facility]) mean corpuscular volume 82.5 fL 80.0-96.0 Mean Corpusc ular Volume [place] ([facility]) mean corpuscular hemoglobin 25.2 pg 27.0-33.0 Below low nor mal Mean Corpuscular Hemoglobin [place] ([facility]) mean corpuscular HGB conc 30.5 g/dL 32.0-36.5 Below low rosalio l Mean Corpuscular HGB Conc [place] ([facility]) red cell distribution width 14.7 % 11.5-14.5 Above high no rmal Red Cell Distribution Width [place] ([facility]) lymph % 39.3 % 24.0-44.0 Lymph % [place] ([facility]) platelet count, automated 234 10 150-450 Platelet C ount, Automated [place] ([facility]) neutrophils % 47.5 % 36.0-66.0 Neutrophils % [place] ( [facility]) mono % 8.5 % 0.0-5.0 Above high normal [place] % [place] ([facility]) baso % 0.4 % 0.0-1.0 Baso % [place] ([facility]) eos % 3.6 % 0.0-3.0 Above high normal Eos % [place] ([facility]) immature granulocyte % 0.7 % 0-3.0 Immature Gran ulocyte % [place] ([facility]) lymph # 2.7 10 1.5-5.0 Lymph # [place] ([facility]) neutrophils # 3.3 10 1.5-8.5 Neutrophils # [place] ( [facility]) nucleated red blood cell % 0.0 % 0-0 Nucleated Red Blood Cell % [place] ([facility]) eos # 0.3 10 0.0-0.5 Eos # [place] ([facility]) mono # 0.6 10 0.0-0.8 [place] # [place] ([facility]) baso # 0.0 10 0.0-0.2 Baso # [place] ([facility]) ID Date Data Source [id number] 09/25/2020 08:05:00 AM EST [place] ([facility]) Name Value Range Interpretation Code Description Data Angela rce(s) Supporting Document(s) Hemoglobin A1c/Hemoglobin.total in Blood 7.7 % Hemoglobin a1C [place] ([facility]) estimated average glucose 174 mg/dL 60-110 Above high norm al Estimated Average Glucose [place] ([facility]) ID Date Data Source [id number] 09/25/2020 08:05:00 AM EST [place] ([facility]) Name Value Range Interpretation Code Description Data Angela rce(s) Supporting Document(s) total 25(oh) vitamin D 23.2 NG/mL 30.0-100.0 Below low normal T otal 25(Oh) Vitamin D [facility]) ID Date Data Source [id number] 09/25/2020 08:05:00 AM EST [place] ([facility]) Name Value Range Interpretation Code Description Data Angela rce(s) Supporting Document(s) free T4 0.99 NG/dL 0.76-1.46 Free T4 [place] ([facility]) thyroid stimulating hormone 5.730 uIU/mL 0.358-3.740 Above high no rmal Thyroid Stimulating Hormone [place] ([facility]) ID Date Data Source [id number] 09/25/2020 08:05:00 AM EST [place] ([facility]) Name Value Range Interpretation Code Description Data Angela rce(s) Supporting Document(s) cholesterol level 206 mg/dL <200 Above high normal Cholesterol Level [place] ([facility]) triglycerides level 325 mg/dL <150 Above high normal Triglycer ides Level [place] ([facility]) cholesterol risk ratio <5 Above high normal Choles terol Risk Ratio [place] ([facility]) non-HDL-C 171 mg/dL Non-hdl-c [place] ([facility]) HDL cholesterol 35 mg/dL >40 Below low normal HDL Cholestero l [place] ([facility]) Cholesterol in LDL [Mass/volume] in Serum or Plasma 106 mg/dL <100 Above high normal LDL Cholesterol [facility] ([facility]) ID Date Data Source [id number] 09/25/2020 08:05:00 AM EST [place] ([facility]) Name Value Range Interpretation Code Description Data Angela rce(s) Supporting Document(s) glucose, fasting 175 mg/dL 70-100 Above high normal Glucose, Fas ting [place] ([facility]) blood urea nitrogen 15 mg/dL 7-18 Blood Urea Nitro gen [place] ([facility]) creatinine for GFR 0.68 mg/dL 0.55-1.30 Creatinine for GF R [place] ([facility]) glomerular filtration rate > 60.0 >60 Glomerula r Filtration Rate [place] ([facility]) sodium level 136 mEq/L 136-145 Sodium Level [place] ([facility]) carbon dioxide level 28 mEq/L 21-32 Carbon Dioxide Level [place] ([facility]) potassium serum 4.6 mEq/L 3.5-5.1 Potassium Serum [place] NA ([facility]) chloride level 100 mEq/L 98-107 Chloride Level [place] ([facility]) anion gap 8 mEq/L 8-16 Anion Gap [place] ([facility]) alkaline phosphatase 100 U/L 45-117 Alkaline Phosph atase [place] ([facility]) bilirubin,total 0.3 mg/dL 0.2-1.0 Bilirubin,total [place] NA ([facility]) calcium level 9.3 mg/dL 8.5-10.1 Calcium Level [place] ( [facility]) ALT/SGPT 30 U/L 12-78 ALT/SGPT [place] ([facility]) AST/SGOT 26 U/L 7-37 AST/SGOT [place] ([facility]) albumin 3.6 gm/dL 3.2-5.2 Albumin [place] ([facility]) total protein 7.2 gm/dL 6.4-8.2 Total Protein [place] ( [facility]) albumin/globulin ratio 1.2-2.2 Below low normal Albumin /globulin Ratio [place] ([facility]) ID Date Data Source [id number] 09/25/2020 08:05:00 AM EST [place] ([facility]) Name Value Range Interpretation Code Description Data Angela rce(s) Supporting Document(s) hemoglobin 12.7 g/dL 12.0-15.5 Hemoglobin [place] ([facility]) white blood count 7.0 10 4.0-10.0 White Blood Count [place] ([facility]) red blood count 5.04 10 4.00-5.40 Red Blood Count [place] NA ([facility]) mean corpuscular hemoglobin 25.2 pg 27.0-33.0 Below low nor mal Mean Corpuscular Hemoglobin [place] ([facility]) hematocrit 41.6 % 36.0-47.0 Hematocrit [place] ([facility]) mean corpuscular volume 82.5 fL 80.0-96.0 Mean Corpusc ular Volume [place] ([facility]) neutrophils % 47.5 % 36.0-66.0 Neutrophils % [place] ( [facility]) mean corpuscular HGB conc 30.5 g/dL 32.0-36.5 Below low rosalio l Mean Corpuscular HGB Conc [place] ([facility]) platelet count, automated 234 10 150-450 Platelet C ount, Automated [place] ([facility]) red cell distribution width 14.7 % 11.5-14.5 Above high no rmal Red Cell Distribution Width [place] ([facility]) lymph % 39.3 % 24.0-44.0 Lymph % [place] ([facility]) eos % 3.6 % 0.0-3.0 Above high normal Eos % [place] ([facility]) baso % 0.4 % 0.0-1.0 Baso % [place] ([facility]) mono % 8.5 % 0.0-5.0 Above high normal [place] % [place] ([facility]) immature granulocyte % 0.7 % 0-3.0 Immature Gran ulocyte % [place] ([facility]) lymph # 2.7 10 1.5-5.0 Lymph # [place] ([facility]) neutrophils # 3.3 10 1.5-8.5 Neutrophils # [place] ( [facility]) nucleated red blood cell % 0.0 % 0-0 Nucleated Red Blood Cell % [place] ([facility]) mono # 0.6 10 0.0-0.8 [place] # [place] ([facility]) eos # 0.3 10 0.0-0.5 Eos # [place] ([facility]) baso # 0.0 10 0.0-0.2 Baso # [place] ([facility]) ID Date Data Source [id number] 09/25/2020 08:05:00 AM EST [place] ([facility]) Name Value Range Interpretation Code Description Data Angela rce(s) Supporting Document(s) Hemoglobin A1c/Hemoglobin.total in Blood 7.7 % Hemoglobin a1C [place] ([facility]) estimated average glucose 174 mg/dL 60-110 Above high norm al Estimated Average Glucose [place] ([facility]) ID Date Data Source [id number] 09/25/2020 08:05:00 AM EST [place] ([facility]) Name Value Range Interpretation Code Description Data Angela rce(s) Supporting Document(s) total 25(oh) vitamin D 23.2 NG/mL 30.0-100.0 Below low normal T otal 25(Oh) Vitamin D [place] ([facility]) ID Date Data Source [id number] 09/25/2020 08:05:00 AM EST [place] ([facility]) Name Value Range Interpretation Code Description Data Angela rce(s) Supporting Document(s) free T4 0.99 NG/dL 0.76-1.46 Free T4 [place] ([facility]) thyroid stimulating hormone 5.730 uIU/mL 0.358-3.740 Above high no rmal Thyroid Stimulating Hormone [place] ([facility]) ID Date Data Source [id number] 09/25/2020 08:05:00 AM EST [place] ([facility]) Name Value Range Interpretation Code Description Data Angela rce(s) Supporting Document(s) triglycerides level 325 mg/dL <150 Above high normal Triglycer ides Level [place] ([facility]) cholesterol level 206 mg/dL <200 Above high normal Cholesterol Level [place] ([facility]) HDL cholesterol 35 mg/dL >40 Below low normal HDL Cholestero l [place] ([facility]) non-HDL-C 171 mg/dL Non-hdl-c [place] ([facility]) Cholesterol in LDL [Mass/volume] in Serum or Plasma 106 mg/dL <100 Above high normal LDL Cholesterol [facility] ([facility]) cholesterol risk ratio <5 Above high normal Choles terol Risk Ratio [place] ([facility]) ID Date Data Source [id number] 09/25/2020 08:05:00 AM EST [place] ([facility]) Name Value Range Interpretation Code Description Data Angela rce(s) Supporting Document(s) glucose, fasting 175 mg/dL 70-100 Above high normal Glucose, Fas ting [place] ([facility]) creatinine for GFR 0.68 mg/dL 0.55-1.30 Creatinine for GF R [place] ([facility]) blood urea nitrogen 15 mg/dL 7-18 Blood Urea Nitro gen [place] ([facility]) sodium level 136 mEq/L 136-145 Sodium Level [place] ([facility]) potassium serum 4.6 mEq/L 3.5-5.1 Potassium Serum [place] ([facility]) chloride level 100 mEq/L 98-107 Chloride Level [place] ([facility]) glomerular filtration rate > 60.0 >60 Glomerula r Filtration Rate [place] ([facility]) carbon dioxide level 28 mEq/L 21-32 Carbon Dioxide Level [place] ([facility]) anion gap 8 mEq/L 8-16 Anion Gap [place] ([facility]) calcium level 9.3 mg/dL 8.5-10.1 Calcium Level [place] ( [facility]) bilirubin,total 0.3 mg/dL 0.2-1.0 Bilirubin,total [place] ([facility]) ALT/SGPT 30 U/L 12-78 ALT/SGPT [place] ([facility]) AST/SGOT 26 U/L 7-37 AST/SGOT [place] ([facility]) alkaline phosphatase 100 U/L 45-117 Alkaline Phosph atase [place] ([facility]) albumin 3.6 gm/dL 3.2-5.2 Albumin [place] ([facility]) albumin/globulin ratio 1.2-2.2 Below low normal Albumin /globulin Ratio [place] ([facility]) total protein 7.2 gm/dL 6.4-8.2 Total Protein [place] ( [facility]) ID Date Data Source [id number] 09/25/2020 08:05:00 AM EST [place] ([facility]) Name Value Range Interpretation Code Description Data Angela rce(s) Supporting Document(s) hemoglobin 12.7 g/dL 12.0-15.5 Hemoglobin [place] ([facility]) white blood count 7.0 10 4.0-10.0 White Blood Count [place] ([facility]) red blood count 5.04 10 4.00-5.40 Red Blood Count [place] ([facility]) hematocrit 41.6 % 36.0-47.0 Hematocrit [place] ([facility]) mean corpuscular hemoglobin 25.2 pg 27.0-33.0 Below low nor mal Mean Corpuscular Hemoglobin [place] ([facility]) mean corpuscular volume 82.5 fL 80.0-96.0 Mean Corpusc ular Volume [place] ([facility]) red cell distribution width 14.7 % 11.5-14.5 Above high no rmal Red Cell Distribution Width [place] ([facility]) platelet count, automated 234 10 150-450 Platelet C ount, Automated [place] ([facility]) mean corpuscular HGB conc 30.5 g/dL 32.0-36.5 Below low rosalio l Mean Corpuscular HGB Conc [place] ([facility]) mono % 8.5 % 0.0-5.0 Above high normal [place] % [place] ([facility]) neutrophils % 47.5 % 36.0-66.0 Neutrophils % [place] ( [facility]) lymph % 39.3 % 24.0-44.0 Lymph % [place] ([facility]) immature granulocyte % 0.7 % 0-3.0 Immature Gran ulocyte % [place] ([facility]) eos % 3.6 % 0.0-3.0 Above high normal Eos % [place] ([facility]) baso % 0.4 % 0.0-1.0 Baso % [place] ([facility]) lymph # 2.7 10 1.5-5.0 Lymph # [place] ([facility]) neutrophils # 3.3 10 1.5-8.5 Neutrophils # [place] ( [facility]) nucleated red blood cell % 0.0 % 0-0 Nucleated Red Blood Cell % [place] ([facility]) baso # 0.0 10 0.0-0.2 Baso # [place] ([facility]) mono # 0.6 10 0.0-0.8 [place] # [place] ([facility]) eos # 0.3 10 0.0-0.5 Eos # [place] ([facility]) ID Date Data Source [id number] 09/25/2020 08:05:00 AM EST [place] ([facility]) Name Value Range Interpretation Code Description Data Angela rce(s) Supporting Document(s) estimated average glucose 174 mg/dL 60-110 Above high norm al Estimated Average Glucose [place] ([facility]) Hemoglobin A1c/Hemoglobin.total in Blood 7.7 % Hemoglobin a1C [place] ([facility]) ID Date Data Source [id number] 09/25/2020 08:05:00 AM EST [place] ([facility]) Name Value Range Interpretation Code Description Data Angela rce(s) Supporting Document(s) total 25(oh) vitamin D 23.2 NG/mL 30.0-100.0 Below low normal T otal 25(Oh) Vitamin D [place] ([facility]) ID Date Data Source [id number] 09/25/2020 08:05:00 AM EST [place] ([facility]) Name Value Range Interpretation Code Description Data Angela rce(s) Supporting Document(s) thyroid stimulating hormone 5.730 uIU/mL 0.358-3.740 Above high no rmal Thyroid Stimulating Hormone [place] ([facility]) free T4 0.99 NG/dL 0.76-1.46 Free T4 [place] ([facility]) ID Date Data Source [id number] 09/25/2020 08:05:00 AM EST [place] ([facility]) Name Value Range Interpretation Code Description Data Angela rce(s) Supporting Document(s) HDL cholesterol 35 mg/dL >40 Below low normal HDL Cholestero l [place] ([facility]) triglycerides level 325 mg/dL <150 Above high normal Triglycer ides Level [place] ([facility]) cholesterol level 206 mg/dL <200 Above high normal Cholesterol Level [place] ([facility]) Cholesterol in LDL [Mass/volume] in Serum or Plasma 106 mg/dL <100 Above high normal LDL Cholesterol [facility] ([facility]) cholesterol risk ratio <5 Above high normal Choles terol Risk Ratio [place] ([facility]) non-HDL-C 171 mg/dL Non-hdl-c [place] ([facility]) ID Date Data Source [id number] 09/25/2020 08:05:00 AM EST [place] ([facility]) Name Value Range Interpretation Code Description Data Angela rce(s) Supporting Document(s) glucose, fasting 175 mg/dL 70-100 Above high normal Glucose, Fas ting [place] ([facility]) blood urea nitrogen 15 mg/dL 7-18 Blood Urea Nitro gen [place] ([facility]) creatinine for GFR 0.68 mg/dL 0.55-1.30 Creatinine for GF R [place] ([facility]) glomerular filtration rate > 60.0 >60 Glomerula r Filtration Rate [place] ([facility]) sodium level 136 mEq/L 136-145 Sodium Level [place] ([facility]) potassium serum 4.6 mEq/L 3.5-5.1 Potassium Serum [place] ([facility]) carbon dioxide level 28 mEq/L 21-32 Carbon Dioxide Level [place] ([facility]) chloride level 100 mEq/L 98-107 Chloride Level [place] ([facility]) calcium level 9.3 mg/dL 8.5-10.1 Calcium Level [place] ( [facility]) anion gap 8 mEq/L 8-16 Anion Gap [place] ([facility]) AST/SGOT 26 U/L 7-37 AST/SGOT [place] ([facility]) ALT/SGPT 30 U/L 12-78 ALT/SGPT [place] ([facility]) alkaline phosphatase 100 U/L 45-117 Alkaline Phosph atase [place] ([facility]) total protein 7.2 gm/dL 6.4-8.2 Total Protein [place] ( [facility]) bilirubin,total 0.3 mg/dL 0.2-1.0 Bilirubin,total [place] ([facility]) albumin 3.6 gm/dL 3.2-5.2 Albumin [place] ([facility]) albumin/globulin ratio 1.2-2.2 Below low normal Albumin /globulin Ratio [place] ([facility]) ID Date Data Source [id number] 09/25/2020 08:05:00 AM EST [place] ([facility]) Name Value Range Interpretation Code Description Data Angela rce(s) Supporting Document(s) white blood count 7.0 10 4.0-10.0 White Blood Count [place] ([facility]) red blood count 5.04 10 4.00-5.40 Red Blood Count [place] ([facility]) hemoglobin 12.7 g/dL 12.0-15.5 Hemoglobin [place] ([facility]) hematocrit 41.6 % 36.0-47.0 Hematocrit [place] ([facility]) mean corpuscular volume 82.5 fL 80.0-96.0 Mean Corpusc ular Volume [place] ([facility]) mean corpuscular HGB conc 30.5 g/dL 32.0-36.5 Below low rosalio l Mean Corpuscular HGB Conc [place] ([facility]) mean corpuscular hemoglobin 25.2 pg 27.0-33.0 Below low nor mal Mean Corpuscular Hemoglobin [place] ([facility]) red cell distribution width 14.7 % 11.5-14.5 Above high no rmal Red Cell Distribution Width [place] ([facility]) platelet count, automated 234 10 150-450 Platelet C ount, Automated [place] ([facility]) neutrophils % 47.5 % 36.0-66.0 Neutrophils % [place] ( [facility]) mono % 8.5 % 0.0-5.0 Above high normal [place] % [place] ([facility]) lymph % 39.3 % 24.0-44.0 Lymph % [place] ([facility]) eos % 3.6 % 0.0-3.0 Above high normal Eos % [place] ([facility]) baso % 0.4 % 0.0-1.0 Baso % [place] ([facility]) nucleated red blood cell % 0.0 % 0-0 Nucleated Red Blood Cell % [place] ([facility]) immature granulocyte % 0.7 % 0-3.0 Immature Gran ulocyte % [place] ([facility]) neutrophils # 3.3 10 1.5-8.5 Neutrophils # [place] ( [facility]) lymph # 2.7 10 1.5-5.0 Lymph # [place] ([facility]) mono # 0.6 10 0.0-0.8 [place] # [place] ([facility]) eos # 0.3 10 0.0-0.5 Eos # [place] ([facility]) baso # 0.0 10 0.0-0.2 Baso # [place] ([facility]) ID Date Data Source [id number] 09/25/2020 08:05:00 AM EST [place] ([facility]) Name Value Range Interpretation Code Description Data Angela rce(s) Supporting Document(s) Hemoglobin A1c/Hemoglobin.total in Blood 7.7 % Hemoglobin a1C [place] ([facility]) estimated average glucose 174 mg/dL 60-110 Above high norm al Estimated Average Glucose [place] ([facility]) ID Date Data Source [id number] 09/25/2020 08:05:00 AM EST [place] ([facility]) Name Value Range Interpretation Code Description Data Angela rce(s) Supporting Document(s) total 25(oh) vitamin D 23.2 NG/mL 30.0-100.0 Below low normal T otal 25(Oh) Vitamin D [place] ([facility]) ID Date Data Source [id number] 09/25/2020 08:05:00 AM EST [place] ([facility]) Name Value Range Interpretation Code Description Data Angela rce(s) Supporting Document(s) thyroid stimulating hormone 5.730 uIU/mL 0.358-3.740 Above high no rmal Thyroid Stimulating Hormone [place] ([facility]) free T4 0.99 NG/dL 0.76-1.46 Free T4 [place] ([facility]) ID Date Data Source [id number] 09/25/2020 08:05:00 AM EST [place] ([facility]) Name Value Range Interpretation Code Description Data Angela rce(s) Supporting Document(s) triglycerides level 325 mg/dL <150 Above high normal Triglycer ides Level [place] ([facility]) HDL cholesterol 35 mg/dL >40 Below low normal HDL Cholestero l [place] ([facility]) Cholesterol in LDL [Mass/volume] in Serum or Plasma 106 mg/dL <100 Above high normal LDL Cholesterol [place] ([facility]) cholesterol level 206 mg/dL <200 Above high normal Cholesterol Level [place] ([facility]) cholesterol risk ratio <5 Above high normal Choles terol Risk Ratio [place] ([facility]) non-HDL-C 171 mg/dL Non-hdl-c [place] ([facility]) ID Date Data Source [id number] 09/25/2020 08:05:00 AM EST [place] ([facility]) Name Value Range Interpretation Code Description Data Angela rce(s) Supporting Document(s) glucose, fasting 175 mg/dL 70-100 Above high normal Glucose, Fas ting [place] ([facility]) creatinine for GFR 0.68 mg/dL 0.55-1.30 Creatinine for GF R [place] ([facility]) blood urea nitrogen 15 mg/dL 7-18 Blood Urea Nitro gen [place] ([facility]) sodium level 136 mEq/L 136-145 Sodium Level [place] ([facility]) potassium serum 4.6 mEq/L 3.5-5.1 Potassium Serum [place] ([facility]) glomerular filtration rate > 60.0 >60 Glomerula r Filtration Rate [place] ([facility]) chloride level 100 mEq/L 98-107 Chloride Level [place] ([facility]) carbon dioxide level 28 mEq/L 21-32 Carbon Dioxide Level [place] ([facility]) anion gap 8 mEq/L 8-16 Anion Gap [place] ([facility]) ALT/SGPT 30 U/L 12-78 ALT/SGPT [place] ([facility]) calcium level 9.3 mg/dL 8.5-10.1 Calcium Level [place] ( [facility]) AST/SGOT 26 U/L 7-37 AST/SGOT [place] ([facility]) alkaline phosphatase 100 U/L 45-117 Alkaline Phosph atase [place] ([facility]) bilirubin,total 0.3 mg/dL 0.2-1.0 Bilirubin,total [place] NA ([facility]) albumin 3.6 gm/dL 3.2-5.2 Albumin [place] ([facility]) total protein 7.2 gm/dL 6.4-8.2 Total Protein [place] ( [facility]) albumin/globulin ratio 1.2-2.2 Below low normal Albumin /globulin Ratio [place] ([facility]) ID Date Data Source [id number] 09/25/2020 08:05:00 AM EST [place] ([facility]) Name Value Range Interpretation Code Description Data Angela rce(s) Supporting Document(s) white blood count 7.0 10 4.0-10.0 White Blood Count [place] ([facility]) hemoglobin 12.7 g/dL 12.0-15.5 Hemoglobin [place] ([facility]) red blood count 5.04 10 4.00-5.40 Red Blood Count [place] ([facility]) hematocrit 41.6 % 36.0-47.0 Hematocrit [place] ([facility]) mean corpuscular volume 82.5 fL 80.0-96.0 Mean Corpusc ular Volume [place] ([facility]) mean corpuscular hemoglobin 25.2 pg 27.0-33.0 Below low nor mal Mean Corpuscular Hemoglobin [place] ([facility]) red cell distribution width 14.7 % 11.5-14.5 Above high no rmal Red Cell Distribution Width [place] ([facility]) mean corpuscular HGB conc 30.5 g/dL 32.0-36.5 Below low rosalio l Mean Corpuscular HGB Conc [place] ([facility]) platelet count, automated 234 10 150-450 Platelet C ount, Automated [place] ([facility]) lymph % 39.3 % 24.0-44.0 Lymph % [place] ([facility]) neutrophils % 47.5 % 36.0-66.0 Neutrophils % [place] ( [facility]) baso % 0.4 % 0.0-1.0 Baso % [place] ([facility]) mono % 8.5 % 0.0-5.0 Above high normal [place] % [place] ([facility]) eos % 3.6 % 0.0-3.0 Above high normal Eos % [place] ([facility]) nucleated red blood cell % 0.0 % 0-0 Nucleated Red Blood Cell % [place] ([facility]) neutrophils # 3.3 10 1.5-8.5 Neutrophils # [place] ( [facility]) immature granulocyte % 0.7 % 0-3.0 Immature Gran ulocyte % [place] ([facility]) eos # 0.3 10 0.0-0.5 Eos # [place] ([facility]) mono # 0.6 10 0.0-0.8 [place] # [place] ([facility]) lymph # 2.7 10 1.5-5.0 Lymph # [place] ([facility]) baso # 0.0 10 0.0-0.2 Baso # [place] ([facility]) ID Date Data Source [id number] 09/25/2020 08:05:00 AM EST [place] ([facility]) Name Value Range Interpretation Code Description Data Angela rce(s) Supporting Document(s) estimated average glucose 174 mg/dL 60-110 Above high norm al Estimated Average Glucose [place] ([facility]) Hemoglobin A1c/Hemoglobin.total in Blood 7.7 % Hemoglobin a1C [place] ([facility]) ID Date Data Source [id number] 09/25/2020 08:05:00 AM EST [place] ([facility]) Name Value Range Interpretation Code Description Data Angela rce(s) Supporting Document(s) total 25(oh) vitamin D 23.2 NG/mL 30.0-100.0 Below low normal T otal 25(Oh) Vitamin D [place] ([facility]) ID Date Data Source [id number] 09/25/2020 08:05:00 AM EST [place] ([facility]) Name Value Range Interpretation Code Description Data Angela rce(s) Supporting Document(s) thyroid stimulating hormone 5.730 uIU/mL 0.358-3.740 Above high no rmal Thyroid Stimulating Hormone [place] ([facility]) free T4 0.99 NG/dL 0.76-1.46 Free T4 [place] ([facility]) ID Date Data Source [id number] 09/25/2020 08:05:00 AM EST [place] ([facility]) Name Value Range Interpretation Code Description Data Angela rce(s) Supporting Document(s) triglycerides level 325 mg/dL <150 Above high normal Triglycer ides Level [place] ([facility]) cholesterol level 206 mg/dL <200 Above high normal Cholesterol Level [place] ([facility]) HDL cholesterol 35 mg/dL >40 Below low normal HDL Cholestero l [place] ([facility]) non-HDL-C 171 mg/dL Non-hdl-c [place] ([facility]) Cholesterol in LDL [Mass/volume] in Serum or Plasma 106 mg/dL <100 Above high normal LDL Cholesterol [facility] ([facility]) cholesterol risk ratio <5 Above high normal Choles terol Risk Ratio [place] ([facility]) ID Date Data Source [id number] 09/25/2020 08:05:00 AM EST [place] ([facility]) Name Value Range Interpretation Code Description Data Angela rce(s) Supporting Document(s) blood urea nitrogen 15 mg/dL 7-18 Blood Urea Nitro gen [place] ([facility]) glucose, fasting 175 mg/dL 70-100 Above high normal Glucose, Fas ting [place] ([facility]) sodium level 136 mEq/L 136-145 Sodium Level [place] ([facility]) creatinine for GFR 0.68 mg/dL 0.55-1.30 Creatinine for GF R [place] ([facility]) glomerular filtration rate > 60.0 >60 Glomerula r Filtration Rate [place] ([facility]) potassium serum 4.6 mEq/L 3.5-5.1 Potassium Serum [place] ([facility]) chloride level 100 mEq/L 98-107 Chloride Level [place] ([facility]) carbon dioxide level 28 mEq/L 21-32 Carbon Dioxide Level [place] ([facility]) anion gap 8 mEq/L 8-16 Anion Gap [place] ([facility]) alkaline phosphatase 100 U/L 45-117 Alkaline Phosph atase [place] ([facility]) AST/SGOT 26 U/L 7-37 AST/SGOT [place] ([facility]) ALT/SGPT 30 U/L 12-78 ALT/SGPT [place] ([facility]) calcium level 9.3 mg/dL 8.5-10.1 Calcium Level [place] ( [facility]) albumin 3.6 gm/dL 3.2-5.2 Albumin [place] ([facility]) bilirubin,total 0.3 mg/dL 0.2-1.0 Bilirubin,total [place] ([facility]) total protein 7.2 gm/dL 6.4-8.2 Total Protein [place] ( [facility]) albumin/globulin ratio 1.2-2.2 Below low normal Albumin /globulin Ratio [place] ([facility]) ID Date Data Source [id number] 09/25/2020 08:05:00 AM EST [place] ([facility]) Name Value Range Interpretation Code Description Data Angela rce(s) Supporting Document(s) red blood count 5.04 10 4.00-5.40 Red Blood Count [place] ([facility]) hemoglobin 12.7 g/dL 12.0-15.5 Hemoglobin [place] ([facility]) white blood count 7.0 10 4.0-10.0 White Blood Count [place] ([facility]) mean corpuscular hemoglobin 25.2 pg 27.0-33.0 Below low nor mal Mean Corpuscular Hemoglobin [place] ([facility]) hematocrit 41.6 % 36.0-47.0 Hematocrit [place] ([facility]) mean corpuscular volume 82.5 fL 80.0-96.0 Mean Corpusc ular Volume [place] ([facility]) red cell distribution width 14.7 % 11.5-14.5 Above high no rmal Red Cell Distribution Width [place] ([facility]) platelet count, automated 234 10 150-450 Platelet C ount, Automated [place] ([facility]) mean corpuscular HGB conc 30.5 g/dL 32.0-36.5 Below low rosalio l Mean Corpuscular HGB Conc [place] ([facility]) eos % 3.6 % 0.0-3.0 Above high normal Eos % [place] ([facility]) neutrophils % 47.5 % 36.0-66.0 Neutrophils % [place] ( [facility]) lymph % 39.3 % 24.0-44.0 Lymph % [place] ([facility]) mono % 8.5 % 0.0-5.0 Above high normal [place] % [place] ([facility]) nucleated red blood cell % 0.0 % 0-0 Nucleated Red Blood Cell % [place] ([facility]) baso % 0.4 % 0.0-1.0 Baso % [place] ([facility]) immature granulocyte % 0.7 % 0-3.0 Immature Gran ulocyte % [place] ([facility]) mono # 0.6 10 0.0-0.8 [place] # [place] ([facility]) neutrophils # 3.3 10 1.5-8.5 Neutrophils # [place] ( [facility]) eos # 0.3 10 0.0-0.5 Eos # [place] ([facility]) lymph # 2.7 10 1.5-5.0 Lymph # [place] ([facility]) baso # 0.0 10 0.0-0.2 Baso # [place] ([facility]) ID Date Data Source [id number] 09/25/2020 08:05:00 AM EST [place] ([facility]) Name Value Range Interpretation Code Description Data Angela rce(s) Supporting Document(s) estimated average glucose 174 mg/dL 60-110 Above high norm al Estimated Average Glucose [place] ([facility]) Hemoglobin A1c/Hemoglobin.total in Blood 7.7 % Hemoglobin a1C [place] ([facility]) ID Date Data Source [id number] 09/25/2020 08:05:00 AM EST [place] ([facility]) Name Value Range Interpretation Code Description Data Angela rce(s) Supporting Document(s) total 25(oh) vitamin D 23.2 NG/mL 30.0-100.0 Below low normal T otal 25(Oh) Vitamin D [place] ([facility]) ID Date Data Source [id number] 09/25/2020 08:05:00 AM EST [place] ([facility]) Name Value Range Interpretation Code Description Data Angela rce(s) Supporting Document(s) free T4 0.99 NG/dL 0.76-1.46 Free T4 [place] ([facility]) thyroid stimulating hormone 5.730 uIU/mL 0.358-3.740 Above high no rmal Thyroid Stimulating Hormone [place] ([facility]) ID Date Data Source [id number] 09/25/2020 08:05:00 AM EST [place] ([facility]) Name Value Range Interpretation Code Description Data Angela rce(s) Supporting Document(s) HDL cholesterol 35 mg/dL >40 Below low normal HDL Cholestero l [place] ([facility]) Cholesterol in LDL [Mass/volume] in Serum or Plasma 106 mg/dL <100 Above high normal LDL Cholesterol [place] ([facility]) cholesterol level 206 mg/dL <200 Above high normal Cholesterol Level [place] ([facility]) triglycerides level 325 mg/dL <150 Above high normal Triglycer ides Level [place] ([facility]) non-HDL-C 171 mg/dL Non-hdl-c [place] ([facility]) cholesterol risk ratio <5 Above high normal Choles terol Risk Ratio [place] ([facility]) ID Date Data Source [id number] 09/25/2020 08:05:00 AM EST [place] ([facility]) Name Value Range Interpretation Code Description Data Angela rce(s) Supporting Document(s) creatinine for GFR 0.68 mg/dL 0.55-1.30 Creatinine for GF R [place] ([facility]) blood urea nitrogen 15 mg/dL 7-18 Blood Urea Nitro gen [place] ([facility]) glucose, fasting 175 mg/dL 70-100 Above high normal Glucose, Fas ting [place] ([facility]) chloride level 100 mEq/L 98-107 Chloride Level [place] ([facility]) potassium serum 4.6 mEq/L 3.5-5.1 Potassium Serum [place] ([facility]) glomerular filtration rate > 60.0 >60 Glomerula r Filtration Rate [place] ([facility]) sodium level 136 mEq/L 136-145 Sodium Level [place] (No [facility]) carbon dioxide level 28 mEq/L 21-32 Carbon Dioxide Level [place] ([facility]) calcium level 9.3 mg/dL 8.5-10.1 Calcium Level [place] ( [facility]) AST/SGOT 26 U/L 7-37 AST/SGOT [place] ([facility]) anion gap 8 mEq/L 8-16 Anion Gap [place] ([facility]) ALT/SGPT 30 U/L 12-78 ALT/SGPT [place] ([facility]) bilirubin,total 0.3 mg/dL 0.2-1.0 Bilirubin,total [place] ([facility]) alkaline phosphatase 100 U/L 45-117 Alkaline Phosph atase [place] ([facility]) total protein 7.2 gm/dL 6.4-8.2 Total Protein [place] ( [facility]) albumin/globulin ratio 1.2-2.2 Below low normal Albumin /globulin Ratio [place] ([facility]) albumin 3.6 gm/dL 3.2-5.2 Albumin [place] ([facility]) ID Date Data Source [id number] 09/25/2020 08:05:00 AM EST [place] ([facility]) Name Value Range Interpretation Code Description Data Angela rce(s) Supporting Document(s) white blood count 7.0 10 4.0-10.0 White Blood Count [place] ([facility]) red blood count 5.04 10 4.00-5.40 Red Blood Count [place] NA ([facility]) hematocrit 41.6 % 36.0-47.0 Hematocrit [place] ([facility]) hemoglobin 12.7 g/dL 12.0-15.5 Hemoglobin [place] ([facility]) mean corpuscular HGB conc 30.5 g/dL 32.0-36.5 Below low rosalio l Mean Corpuscular HGB Conc [place] ([facility]) red cell distribution width 14.7 % 11.5-14.5 Above high no rmal Red Cell Distribution Width [place] ([facility]) mean corpuscular volume 82.5 fL 80.0-96.0 Mean Corpusc ular Volume [place] ([facility]) mean corpuscular hemoglobin 25.2 pg 27.0-33.0 Below low nor mal Mean Corpuscular Hemoglobin [place] ([facility]) lymph % 39.3 % 24.0-44.0 Lymph % [place] ([facility]) platelet count, automated 234 10 150-450 Platelet C ount, Automated [place] ([facility]) neutrophils % 47.5 % 36.0-66.0 Neutrophils % [place] ( [facility]) baso % 0.4 % 0.0-1.0 Baso % [place] ([facility]) mono % 8.5 % 0.0-5.0 Above high normal [place] % [place] ([facility]) eos % 3.6 % 0.0-3.0 Above high normal Eos % [place] ([facility]) neutrophils # 3.3 10 1.5-8.5 Neutrophils # [place] ( [facility]) nucleated red blood cell % 0.0 % 0-0 Nucleated Red Blood Cell % [place] ([facility]) immature granulocyte % 0.7 % 0-3.0 Immature Gran ulocyte % [place] ([facility]) lymph # 2.7 10 1.5-5.0 Lymph # [place] ([facility]) mono # 0.6 10 0.0-0.8 [place] # [place] ([facility]) baso # 0.0 10 0.0-0.2 Baso # [place] ([facility]) eos # 0.3 10 0.0-0.5 Eos # [place] ([facility]) ID Date Data Source [id number] 09/25/2020 08:05:00 AM EST [place] ([facility]) Name Value Range Interpretation Code Description Data Angela rce(s) Supporting Document(s) estimated average glucose 174 mg/dL 60-110 Above high norm al Estimated Average Glucose [place] ([facility]) Hemoglobin A1c/Hemoglobin.total in Blood 7.7 % Hemoglobin a1C [place] ([facility]) ID Date Data Source [id number] 09/25/2020 08:05:00 AM EST [place] ([facility]) Name Value Range Interpretation Code Description Data Angela rce(s) Supporting Document(s) total 25(oh) vitamin D 23.2 NG/mL 30.0-100.0 Below low normal T otal 25(Oh) Vitamin D [place] ([facility]) ID Date Data Source [id number] 09/25/2020 08:05:00 AM EST [place] ([facility]) Name Value Range Interpretation Code Description Data Angela rce(s) Supporting Document(s) free T4 0.99 NG/dL 0.76-1.46 Free T4 [place] ([facility]) thyroid stimulating hormone 5.730 uIU/mL 0.358-3.740 Above high no rmal Thyroid Stimulating Hormone [place] ([facility]) ID Date Data Source [id number] 09/25/2020 08:05:00 AM EST [place] ([facility]) Name Value Range Interpretation Code Description Data Angela rce(s) Supporting Document(s) triglycerides level 325 mg/dL <150 Above high normal Triglycer ides Level [place] ([facility]) cholesterol level 206 mg/dL <200 Above high normal Cholesterol Level [place] ([facility]) Cholesterol in LDL [Mass/volume] in Serum or Plasma 106 mg/dL <100 Above high normal LDL Cholesterol [facility] ([facility]) cholesterol risk ratio <5 Above high normal Choles terol Risk Ratio [place] ([facility]) non-HDL-C 171 mg/dL Non-hdl-c [place] ([facility]) HDL cholesterol 35 mg/dL >40 Below low normal HDL Cholestero l [place] ([facility]) ID Date Data Source [id number] 09/25/2020 08:05:00 AM EST [place] ([facility]) Name Value Range Interpretation Code Description Data Angela rce(s) Supporting Document(s) glucose, fasting 175 mg/dL 70-100 Above high normal Glucose, Fas ting [place] ([facility]) creatinine for GFR 0.68 mg/dL 0.55-1.30 Creatinine for GF R [place] ([facility]) glomerular filtration rate > 60.0 >60 Glomerula r Filtration Rate [place] ([facility]) sodium level 136 mEq/L 136-145 Sodium Level [place] (No [facility]) blood urea nitrogen 15 mg/dL 7-18 Blood Urea Nitro gen [place] ([facility]) potassium serum 4.6 mEq/L 3.5-5.1 Potassium Serum [place] NA ([facility]) chloride level 100 mEq/L 98-107 Chloride Level [place] ([facility]) carbon dioxide level 28 mEq/L 21-32 Carbon Dioxide Level [place] ([facility]) ALT/SGPT 30 U/L 12-78 ALT/SGPT [place] ([facility]) anion gap 8 mEq/L 8-16 Anion Gap [place] ([facility]) calcium level 9.3 mg/dL 8.5-10.1 Calcium Level [place] ( [facility]) AST/SGOT 26 U/L 7-37 AST/SGOT [place] ([facility]) albumin 3.6 gm/dL 3.2-5.2 Albumin [place] ([facility]) albumin/globulin ratio 1.2-2.2 Below low normal Albumin /globulin Ratio [place] ([facility]) alkaline phosphatase 100 U/L 45-117 Alkaline Phosph atase [place] ([facility]) bilirubin,total 0.3 mg/dL 0.2-1.0 Bilirubin,total [place] NA ([facility]) total protein 7.2 gm/dL 6.4-8.2 Total Protein [place] ( [facility]) ID Date Data Source [id number] 09/25/2020 08:05:00 AM EST [place] ([facility]) Name Value Range Interpretation Code Description Data Angela rce(s) Supporting Document(s) white blood count 7.0 10 4.0-10.0 White Blood Count [place] ([facility]) red blood count 5.04 10 4.00-5.40 Red Blood Count [place] ([facility]) hematocrit 41.6 % 36.0-47.0 Hematocrit [facility] ([facility]) hemoglobin 12.7 g/dL 12.0-15.5 Hemoglobin [facility] ([facility]) mean corpuscular HGB conc 30.5 g/dL 32.0-36.5 Below low rosalio l Mean Corpuscular HGB Conc [facility] ([facility]) mean corpuscular volume 82.5 fL 80.0-96.0 Mean Corpusc ular Volume [facility] ([facility]) mean corpuscular hemoglobin 25.2 pg 27.0-33.0 Below low nor mal Mean Corpuscular Hemoglobin [facility] ([facility]) red cell distribution width 14.7 % 11.5-14.5 Above high no rmal Red Cell Distribution Width [facility] ([facility]) lymph % 39.3 % 24.0-44.0 Lymph % [facility] ([facility]) neutrophils % 47.5 % 36.0-66.0 Neutrophils % [place] ( [facility]) platelet count, automated 234 10 150-450 Platelet C ount, Automated [place] ([facility]) mono % 8.5 % 0.0-5.0 Above high normal [place] % [place] ([facility]) immature granulocyte % 0.7 % 0-3.0 Immature Gran ulocyte % [facility] ([facility]) baso % 0.4 % 0.0-1.0 Baso % [place] ([facility]) eos % 3.6 % 0.0-3.0 Above high normal Eos % [facility] ([facility]) mono # 0.6 10 0.0-0.8 [place] # [place] ([facility]) neutrophils # 3.3 10 1.5-8.5 Neutrophils # [place] ( [facility]) lymph # 2.7 10 1.5-5.0 Lymph # [place] ([facility]) nucleated red blood cell % 0.0 % 0-0 Nucleated Red Blood Cell % [facility] ([facility]) baso # 0.0 10 0.0-0.2 Baso # [place] ([facility]) eos # 0.3 10 0.0-0.5 Eos # [place] ([facility]) ID Date Data Source [id number] 09/25/2020 08:05:00 AM EST [place] ([facility]) Name Value Range Interpretation Code Description Data Angela rce(s) Supporting Document(s) Hemoglobin A1c/Hemoglobin.total in Blood 7.7 % Hemoglobin a1C [place] ([facility]) estimated average glucose 174 mg/dL 60-110 Above high norm al Estimated Average Glucose JONATAN ([facility]) ID Date Data Source [id number] 09/25/2020 08:05:00 AM EST [facility]ON[facility]AN ([facility]) Name Value Range Interpretation Code Description Data Angela rce(s) Supporting Document(s) total 25(oh) vitamin D 23.2 NG/mL 30.0-100.0 Below low normal T otal 25(Oh) Vitamin D JONATAN ([facility]) ID Date Data Source [id number] 09/25/2020 08:05:00 AM EST JONATAN ([facility]) Name Value Range Interpretation Code Description Data Angela rce(s) Supporting Document(s) free T4 0.99 NG/dL 0.76-1.46 Free T4 JONATAN ([facility]) thyroid stimulating hormone 5.730 uIU/mL 0.358-3.740 Above high no rmal Thyroid Stimulating Hormone JONATAN ([facility]) ID Date Data Source [id number] 09/25/2020 08:05:00 AM EST JONATAN ([facility]) Name Value Range Interpretation Code Description Data Angela rce(s) Supporting Document(s) cholesterol level 206 mg/dL <200 Above high normal Cholesterol Level JONATAN ([facility]) triglycerides level 325 mg/dL <150 Above high normal Triglycer ides Level JONATAN ([facility]) HDL cholesterol 35 mg/dL >40 Below low normal HDL Cholestero l JONATAN ([facility]) Cholesterol in LDL [Mass/volume] in Serum or Plasma 106 mg/dL <100 Above high normal LDL Cholesterol JONATAN ([facility]) non-HDL-C 171 mg/dL Non-hdl-c JONATAN ([facility]) cholesterol risk ratio <5 Above high normal Choles terol Risk Ratio JONATAN ([facility]) ID Date Data Source [id number] 09/25/2020 08:05:00 AM EST JONATAN ([facility]) Name Value Range Interpretation Code Description Data Angela rce(s) Supporting Document(s) glucose, fasting 175 mg/dL 70-100 Above high normal Glucose, Fas ting JONATAN ([facility]) blood urea nitrogen 15 mg/dL 7-18 Blood Urea Nitro gen JONATAN ([facility]) creatinine for GFR 0.68 mg/dL 0.55-1.30 Creatinine for GF R JONATAN ([facility]) glomerular filtration rate > 60.0 >60 Glomerula r Filtration Rate JONATAN ([facility]) sodium level 136 mEq/L 136-145 Sodium Level JONATAN ([facility]) chloride level 100 mEq/L 98-107 Chloride Level JONATAN ([facility]) potassium serum 4.6 mEq/L 3.5-5.1 Potassium Serum [place] ([facility]) carbon dioxide level 28 mEq/L 21-32 Carbon Dioxide Level [place] ([facility]) calcium level 9.3 mg/dL 8.5-10.1 Calcium Level JONATAN ( [facility]) anion gap 8 mEq/L 8-16 Anion Gap JONATAN ([facility]) AST/SGOT 26 U/L 7-37 AST/SGOT [facility] ([facility]) ALT/SGPT 30 U/L 12-78 ALT/SGPT [facility]AN ([facility]) albumin 3.6 gm/dL 3.2-5.2 Albumin JONATAN ([facility]) bilirubin,total 0.3 mg/dL 0.2-1.0 Bilirubin,total ATHE ([facility]) alkaline phosphatase 100 U/L 45-117 Alkaline Phosph atase JONATAN ([facility]) total protein 7.2 gm/dL 6.4-8.2 Total Protein JONAATN ( [facility]) albumin/globulin ratio 1.2-2.2 Below low normal Albumin /globulin Ratio JONATAN ([facility]) ID Date Data Source [id number] 09/25/2020 08:05:00 AM EST JONATAN ([facility]) Name Value Range Interpretation Code Description Data Angela rce(s) Supporting Document(s) white blood count 7.0 10 4.0-10.0 White Blood Count JONATAN ([facility]) hemoglobin 12.7 g/dL 12.0-15.5 Hemoglobin JONATAN ([facility]) hematocrit 41.6 % 36.0-47.0 Hematocrit JONATAN ([facility]) red blood count 5.04 10 4.00-5.40 Red Blood Count ATHE NA ([facility]) mean corpuscular hemoglobin 25.2 pg 27.0-33.0 Below low nor mal Mean Corpuscular Hemoglobin JONATAN ([facility]) mean corpuscular HGB conc 30.5 g/dL 32.0-36.5 Below low rosalio l Mean Corpuscular HGB Conc JONATAN ([facility]) mean corpuscular volume 82.5 fL 80.0-96.0 Mean Corpusc ular Volume JONATAN ([facility]) neutrophils % 47.5 % 36.0-66.0 Neutrophils % JONATAN ( [facility]) red cell distribution width 14.7 % 11.5-14.5 Above high no rmal Red Cell Distribution Width JONATAN ([facility]) platelet count, automated 234 10 150-450 Platelet C ount, Automated JONATAN ([facility]) lymph % 39.3 % 24.0-44.0 Lymph % [facility]AN ([facility]) baso % 0.4 % 0.0-1.0 Baso % [facility] ([facility]) eos % 3.6 % 0.0-3.0 Above high normal Eos % JON[facility]AN ([facility]) mono % 8.5 % 0.0-5.0 Above high normal [place] % JONATAN ([facility]) neutrophils # 3.3 10 1.5-8.5 Neutrophils # JON[place]AN ( [facility]) nucleated red blood cell % 0.0 % 0-0 Nucleated Red Blood Cell % JONATAN ([facility]) immature granulocyte % 0.7 % 0-3.0 Immature Gran ulocyte % JONATAN ([facility]) mono # 0.6 10 0.0-0.8 [place] # [facility]ON[facility]AN ([facility]) lymph # 2.7 10 1.5-5.0 Lymph # [facility]ON[facility]AN ([facility]) eos # 0.3 10 0.0-0.5 Eos # [facility]AN ([facility]) baso # 0.0 10 0.0-0.2 Baso # [facility]ON[facility]AN ([facility]) ID Date Data Source [id number] 09/25/2020 08:05:00 AM EST JONATAN ([facility]) Name Value Range Interpretation Code Description Data Angela rce(s) Supporting Document(s) estimated average glucose 174 mg/dL 60-110 Above high norm al Estimated Average Glucose JON[facility]AN ([facility]) Hemoglobin A1c/Hemoglobin.total in Blood 7.7 % Hemoglobin a1C [place] ([facility]) ID Date Data Source [id number] 09/25/2020 08:05:00 AM EST JONATAN ([facility]) Name Value Range Interpretation Code Description Data Angela rce(s) Supporting Document(s) total 25(oh) vitamin D 23.2 NG/mL 30.0-100.0 Below low normal T otal 25(Oh) Vitamin D [place] ([facility]) ID Date Data Source [id number] 09/25/2020 08:05:00 AM EST JONATAN ([facility]) Name Value Range Interpretation Code Description Data Angela rce(s) Supporting Document(s) free T4 0.99 NG/dL 0.76-1.46 Free T4 JON[facility]AN ([facility]) thyroid stimulating hormone 5.730 uIU/mL 0.358-3.740 Above high no rmal Thyroid Stimulating Hormone JONATAN ([facility]) ID Date Data Source [id number] 09/25/2020 08:05:00 AM EST JONATAN ([facility]) Name Value Range Interpretation Code Description Data Angela rce(s) Supporting Document(s) triglycerides level 325 mg/dL <150 Above high normal Triglycer ides Level JONATAN ([facility]) cholesterol level 206 mg/dL <200 Above high normal Cholesterol Level JONATAN ([facility]) Cholesterol in LDL [Mass/volume] in Serum or Plasma 106 mg/dL <100 Above high normal LDL Cholesterol J[facility]ATAN ([facility]) cholesterol risk ratio <5 Above high normal Choles terol Risk Ratio JONATAN ([facility]) non-HDL-C 171 mg/dL Non-hdl-c J[facility]AN ([facility]) HDL cholesterol 35 mg/dL >40 Below low normal HDL Cholestero l JONATAN ([facility]) ID Date Data Source [id number] 09/25/2020 08:05:00 AM EST JONATAN ([facility]) Name Value Range Interpretation Code Description Data Angela rce(s) Supporting Document(s) blood urea nitrogen 15 mg/dL 7-18 Blood Urea Nitro gen JONATAN ([facility]) glucose, fasting 175 mg/dL 70-100 Above high normal Glucose, Fas ting JONATAN ([facility]) glomerular filtration rate > 60.0 >60 Glomerula r Filtration Rate JON[facility]AN ([facility]) creatinine for GFR 0.68 mg/dL 0.55-1.30 Creatinine for GF R JON[facility]AN ([facility]) carbon dioxide level 28 mEq/L 21-32 Carbon Dioxide Level J[facility]AN ([facility]) potassium serum 4.6 mEq/L 3.5-5.1 Potassium Serum AT[place] NA ([facility]) sodium level 136 mEq/L 136-145 Sodium Level J[facility]AN ([facility]) chloride level 100 mEq/L 98-107 Chloride Level JON[facility]AN ([facility]) AST/SGOT 26 U/L 7-37 AST/SGOT [facility] ([facility]) calcium level 9.3 mg/dL 8.5-10.1 Calcium Level JONATAN ( [facility]) ALT/SGPT 30 U/L 12-78 ALT/SGPT [facility] ([facility]) anion gap 8 mEq/L 8-16 Anion Gap J[facility]AN ([facility]) bilirubin,total 0.3 mg/dL 0.2-1.0 Bilirubin,total AT[place] NA ([facility]) albumin 3.6 gm/dL 3.2-5.2 Albumin JON[facility]AN ([facility]) alkaline phosphatase 100 U/L 45-117 Alkaline Phosph atase JONATAN ([facility]) total protein 7.2 gm/dL 6.4-8.2 Total Protein JONATAN ( [facility]) albumin/globulin ratio 1.2-2.2 Below low normal Albumin /globulin Ratio JONATAN ([facility]) ID Date Data Source [id number] 09/25/2020 08:05:00 AM EST JONATAN ([facility]) Name Value Range Interpretation Code Description Data Angela rce(s) Supporting Document(s) white blood count 7.0 10 4.0-10.0 White Blood Count JONATAN ([facility]) red blood count 5.04 10 4.00-5.40 Red Blood Count [place] ([facility]) hemoglobin 12.7 g/dL 12.0-15.5 Hemoglobin JONATAN ([facility]) mean corpuscular hemoglobin 25.2 pg 27.0-33.0 Below low nor mal Mean Corpuscular Hemoglobin JONATAN ([facility]) mean corpuscular volume 82.5 fL 80.0-96.0 Mean Corpusc ular Volume JONATAN ([facility]) hematocrit 41.6 % 36.0-47.0 Hematocrit JON[facility]AN ([facility]) red cell distribution width 14.7 % 11.5-14.5 Above high no rmal Red Cell Distribution Width J[facility]AN ([facility]) neutrophils % 47.5 % 36.0-66.0 Neutrophils % J[place]AN ( [facility]) platelet count, automated 234 10 150-450 Platelet C ount, Automated J[place]AN ([facility]) mean corpuscular HGB conc 30.5 g/dL 32.0-36.5 Below low rosalio l Mean Corpuscular HGB Conc JON[facility]AN ([facility]) mono % 8.5 % 0.0-5.0 Above high normal [place] % J[facility]AN ([facility]) lymph % 39.3 % 24.0-44.0 Lymph % [facility] ([facility]) eos % 3.6 % 0.0-3.0 Above high normal Eos % J[facility]AN ([facility]) nucleated red blood cell % 0.0 % 0-0 Nucleated Red Blood Cell % JON[facility]AN ([facility]) neutrophils # 3.3 10 1.5-8.5 Neutrophils # [place]AN ( [facility]) baso % 0.4 % 0.0-1.0 Baso % JON[facility]AN ([facility]) immature granulocyte % 0.7 % 0-3.0 Immature Gran ulocyte % JONATAN ([facility]) baso # 0.0 10 0.0-0.2 Baso # [facility]AN ([facility]) lymph # 2.7 10 1.5-5.0 Lymph # [facility]AN ([facility]) eos # 0.3 10 0.0-0.5 Eos # [facility] ([facility]) mono # 0.6 10 0.0-0.8 [place] # [facility]AN ([facility]) ID Date Data Source [id number] 09/25/2020 08:05:00 AM EST JON[place]AN ([facility]) Name Value Range Interpretation Code Description Data Angela rce(s) Supporting Document(s) estimated average glucose 174 mg/dL 60-110 Above high norm al Estimated Average Glucose [place] ([facility]) Hemoglobin A1c/Hemoglobin.total in Blood 7.7 % Hemoglobin a1C [place] ([facility]) ID Date Data Source [id number] 09/25/2020 08:05:00 AM EST JONATAN ([facility]) Name Value Range Interpretation Code Description Data Angela rce(s) Supporting Document(s) total 25(oh) vitamin D 23.2 NG/mL 30.0-100.0 Below low normal T otal 25(Oh) Vitamin D [place] ([facility]) ID Date Data Source [id number] 09/25/2020 08:05:00 AM EST JONATAN ([facility]) Name Value Range Interpretation Code Description Data Angela rce(s) Supporting Document(s) free T4 0.99 NG/dL 0.76-1.46 Free T4 JON[facility]AN ([facility]) thyroid stimulating hormone 5.730 uIU/mL 0.358-3.740 Above high no rmal Thyroid Stimulating Hormone JONATAN ([facility]) ID Date Data Source [id number] 09/25/2020 08:05:00 AM EST JONATAN ([facility]) Name Value Range Interpretation Code Description Data Angela rce(s) Supporting Document(s) cholesterol level 206 mg/dL <200 Above high normal Cholesterol Level JONATAN ([facility]) HDL cholesterol 35 mg/dL >40 Below low normal HDL Cholestero l JONATAN ([facility]) triglycerides level 325 mg/dL <150 Above high normal Triglycer ides Level JON[facility]AN ([facility]) Cholesterol in LDL [Mass/volume] in Serum or Plasma 106 mg/dL <100 Above high normal LDL Cholesterol JONATAN ([facility]) cholesterol risk ratio <5 Above high normal Choles terol Risk Ratio JONATAN ([facility]) non-HDL-C 171 mg/dL Non-hdl-c [facility] ([facility]) ID Date Data Source [id number] 09/25/2020 08:05:00 AM EST J[place]AN ([facility]) Name Value Range Interpretation Code Description Data Angela rce(s) Supporting Document(s) glucose, fasting 175 mg/dL 70-100 Above high normal Glucose, Fas ting JONATAN ([facility]) glomerular filtration rate > 60.0 >60 Glomerula r Filtration Rate J[facility]AN ([facility]) sodium level 136 mEq/L 136-145 Sodium Level J[facility]AN ([facility]) blood urea nitrogen 15 mg/dL 7-18 Blood Urea Nitro gen JON[facility]AN ([facility]) creatinine for GFR 0.68 mg/dL 0.55-1.30 Creatinine for GF R [facility]AN ([facility]) potassium serum 4.6 mEq/L 3.5-5.1 Potassium Serum [place] NA ([facility]) carbon dioxide level 28 mEq/L 21-32 Carbon Dioxide Level [place] ([facility]) chloride level 100 mEq/L 98-107 Chloride Level [facility] ([facility]) anion gap 8 mEq/L 8-16 Anion Gap [facility] ([facility]) calcium level 9.3 mg/dL 8.5-10.1 Calcium Level [place] ( [facility]) ALT/SGPT 30 U/L 12-78 ALT/SGPT [place] ([facility]) alkaline phosphatase 100 U/L 45-117 Alkaline Phosph atase [facility]AN ([facility]) AST/SGOT 26 U/L 7-37 AST/SGOT [place] ([facility]) bilirubin,total 0.3 mg/dL 0.2-1.0 Bilirubin,total [place] NA ([facility]) albumin 3.6 gm/dL 3.2-5.2 Albumin [place] ([facility]) total protein 7.2 gm/dL 6.4-8.2 Total Protein [facility] ( [facility]) albumin/globulin ratio 1.2-2.2 Below low normal Albumin /globulin Ratio [facility]AN ([facility]) ID Date Data Source [id number] 09/25/2020 08:05:00 AM EST [place] ([facility]) Name Value Range Interpretation Code Description Data Angela rce(s) Supporting Document(s) white blood count 7.0 10 4.0-10.0 White Blood Count [place] ([facility]) hematocrit 41.6 % 36.0-47.0 Hematocrit [facility]AN ([facility]) red blood count 5.04 10 4.00-5.40 Red Blood Count [place] ([facility]) hemoglobin 12.7 g/dL 12.0-15.5 Hemoglobin [facility]AN ([facility]) mean corpuscular volume 82.5 fL 80.0-96.0 Mean Corpusc ular Volume JON[facility]AN ([facility]) mean corpuscular HGB conc 30.5 g/dL 32.0-36.5 Below low rosalio l Mean Corpuscular HGB Conc JONATAN ([facility]) mean corpuscular hemoglobin 25.2 pg 27.0-33.0 Below low nor mal Mean Corpuscular Hemoglobin J[facility]AN ([facility]) platelet count, automated 234 10 150-450 Platelet C ount, Automated [place] ([facility]) neutrophils % 47.5 % 36.0-66.0 Neutrophils % [place]AN ( [facility]) lymph % 39.3 % 24.0-44.0 Lymph % [facility] ([facility]) red cell distribution width 14.7 % 11.5-14.5 Above high no rmal Red Cell Distribution Width [facility]AN ([facility]) mono % 8.5 % 0.0-5.0 Above high normal [place] % [facility]AN ([facility]) baso % 0.4 % 0.0-1.0 Baso % [facility] ([facility]) eos % 3.6 % 0.0-3.0 Above high normal Eos % J[facility]AN ([facility]) immature granulocyte % 0.7 % 0-3.0 Immature Gran ulocyte % J[facility]AN ([facility]) neutrophils # 3.3 10 1.5-8.5 Neutrophils # [place] ( [facility]) lymph # 2.7 10 1.5-5.0 Lymph # [place] ([facility]) nucleated red blood cell % 0.0 % 0-0 Nucleated Red Blood Cell % [facility]AN ([facility]) mono # 0.6 10 0.0-0.8 [place] # [facility]AN ([facility]) baso # 0.0 10 0.0-0.2 Baso # [place] ([facility]) eos # 0.3 10 0.0-0.5 Eos # [facility] ([facility]) ID Date Data Source [id number] 09/25/2020 08:05:00 AM EST [place] ([facility]) Name Value Range Interpretation Code Description Data Angela rce(s) Supporting Document(s) Hemoglobin A1c/Hemoglobin.total in Blood 7.7 % Hemoglobin a1C [place] ([facility]) estimated average glucose 174 mg/dL 60-110 Above high norm al Estimated Average Glucose [place] ([facility]) ID Date Data Source [id number] 09/25/2020 08:05:00 AM EST [place] ([facility]) Name Value Range Interpretation Code Description Data Angela rce(s) Supporting Document(s) total 25(oh) vitamin D 23.2 NG/mL 30.0-100.0 Below low normal T otal 25(Oh) Vitamin D [place] ([facility]) ID Date Data Source [id number] 09/25/2020 08:05:00 AM EST [place] ([facility]) Name Value Range Interpretation Code Description Data Angela rce(s) Supporting Document(s) thyroid stimulating hormone 5.730 uIU/mL 0.358-3.740 Above high no rmal Thyroid Stimulating Hormone JONATAN ([facility]) free T4 0.99 NG/dL 0.76-1.46 Free T4 [place] ([facility]) ID Date Data Source [id number] 09/25/2020 08:05:00 AM EST [place] ([facility]) Name Value Range Interpretation Code Description Data Angela rce(s) Supporting Document(s) triglycerides level 325 mg/dL <150 Above high normal Triglycer ides Level [place] ([facility]) Cholesterol in LDL [Mass/volume] in Serum or Plasma 106 mg/dL <100 Above high normal LDL Cholesterol [facility]AN ([facility]) non-HDL-C 171 mg/dL Non-hdl-c [facility] ([facility]) cholesterol level 206 mg/dL <200 Above high normal Cholesterol Level [place]AN ([facility]) HDL cholesterol 35 mg/dL >40 Below low normal HDL Cholestero l [place] ([facility]) cholesterol risk ratio <5 Above high normal Choles terol Risk Ratio [place] ([facility]) ID Date Data Source [id number] 09/25/2020 08:05:00 AM EST [place] ([facility]) Name Value Range Interpretation Code Description Data Angela rce(s) Supporting Document(s) glucose, fasting 175 mg/dL 70-100 Above high normal Glucose, Fas ting [place] ([facility]) glomerular filtration rate > 60.0 >60 Glomerula r Filtration Rate [place] ([facility]) blood urea nitrogen 15 mg/dL 7-18 Blood Urea Nitro gen [facility] ([facility]) creatinine for GFR 0.68 mg/dL 0.55-1.30 Creatinine for GF R [place] ([facility]) sodium level 136 mEq/L 136-145 Sodium Level J[place]AN ([facility]) chloride level 100 mEq/L 98-107 Chloride Level [place] ([facility]) potassium serum 4.6 mEq/L 3.5-5.1 Potassium Serum [place] ([facility]) carbon dioxide level 28 mEq/L 21-32 Carbon Dioxide Level [place] ([facility]) anion gap 8 mEq/L 8-16 Anion Gap [place] ([facility]) calcium level 9.3 mg/dL 8.5-10.1 Calcium Level [place] ( [facility]) AST/SGOT 26 U/L 7-37 AST/SGOT [place] ([facility]) alkaline phosphatase 100 U/L 45-117 Alkaline Phosph atase [place] ([facility]) bilirubin,total 0.3 mg/dL 0.2-1.0 Bilirubin,total [place] NA ([facility]) ALT/SGPT 30 U/L 12-78 ALT/SGPT [place] ([facility]) total protein 7.2 gm/dL 6.4-8.2 Total Protein [place] ( [facility]) albumin 3.6 gm/dL 3.2-5.2 Albumin [place] ([facility]) albumin/globulin ratio 1.2-2.2 Below low normal Albumin /globulin Ratio [place] ([facility]) ID Date Data Source [id number] 09/25/2020 08:05:00 AM EST [place] ([facility]) Name Value Range Interpretation Code Description Data Angela rce(s) Supporting Document(s) white blood count 7.0 10 4.0-10.0 White Blood Count [place] ([facility]) hemoglobin 12.7 g/dL 12.0-15.5 Hemoglobin [place] ([facility]) red blood count 5.04 10 4.00-5.40 Red Blood Count [place] NA ([facility]) mean corpuscular hemoglobin 25.2 pg 27.0-33.0 Below low nor mal Mean Corpuscular Hemoglobin [facility] ([facility]) hematocrit 41.6 % 36.0-47.0 Hematocrit [place] ([facility]) mean corpuscular volume 82.5 fL 80.0-96.0 Mean Corpusc ular Volume [place] ([facility]) platelet count, automated 234 10 150-450 Platelet C ount, Automated [place] ([facility]) red cell distribution width 14.7 % 11.5-14.5 Above high no rmal Red Cell Distribution Width [place] ([facility]) mean corpuscular HGB conc 30.5 g/dL 32.0-36.5 Below low rosalio l Mean Corpuscular HGB Conc [place] ([facility]) lymph % 39.3 % 24.0-44.0 Lymph % [place] ([facility]) eos % 3.6 % 0.0-3.0 Above high normal Eos % [place] ([facility]) mono % 8.5 % 0.0-5.0 Above high normal [place] % [place] ([facility]) neutrophils % 47.5 % 36.0-66.0 Neutrophils % [place] ( [facility]) baso % 0.4 % 0.0-1.0 Baso % [place] ([facility]) immature granulocyte % 0.7 % 0-3.0 Immature Gran ulocyte % JONATAN ([facility]) nucleated red blood cell % 0.0 % 0-0 Nucleated Red Blood Cell % JON[facility]AN ([facility]) neutrophils # 3.3 10 1.5-8.5 Neutrophils # [place]AN ( [facility]) lymph # 2.7 10 1.5-5.0 Lymph # [place] ([facility]) mono # 0.6 10 0.0-0.8 [place] # [place] ([facility]) eos # 0.3 10 0.0-0.5 Eos # [place] ([facility]) baso # 0.0 10 0.0-0.2 Baso # [facility] ([facility]) ID Date Data Source [id number] 09/25/2020 08:05:00 AM EST [facility] ([facility]) Name Value Range Interpretation Code Description Data Angela rce(s) Supporting Document(s) Hemoglobin A1c/Hemoglobin.total in Blood 7.7 % Hemoglobin a1C [facility] ([facility]) estimated average glucose 174 mg/dL 60-110 Above high norm al Estimated Average Glucose [place] ([facility]) ID Date Data Source [id number] 09/25/2020 08:05:00 AM EST [facility] ([facility]) Name Value Range Interpretation Code Description Data Angela rce(s) Supporting Document(s) total 25(oh) vitamin D 23.2 NG/mL 30.0-100.0 Below low normal T otal 25(Oh) Vitamin D [place] ([facility]) ID Date Data Source [id number] 09/25/2020 08:05:00 AM EST [place] ([facility]) Name Value Range Interpretation Code Description Data Angela rce(s) Supporting Document(s) thyroid stimulating hormone 5.730 uIU/mL 0.358-3.740 Above high no rmal Thyroid Stimulating Hormone JON[facility]AN ([facility]) free T4 0.99 NG/dL 0.76-1.46 Free T4 [place] ([facility]) ID Date Data Source [id number] 09/25/2020 08:05:00 AM EST [place] ([facility]) Name Value Range Interpretation Code Description Data Angela rce(s) Supporting Document(s) cholesterol level 206 mg/dL <200 Above high normal Cholesterol Level JON[facility]AN ([facility]) triglycerides level 325 mg/dL <150 Above high normal Triglycer ides Level [facility]AN ([facility]) HDL cholesterol 35 mg/dL >40 Below low normal HDL Cholestero l [facility] ([facility]) Cholesterol in LDL [Mass/volume] in Serum or Plasma 106 mg/dL <100 Above high normal LDL Cholesterol [facility] ([facility]) cholesterol risk ratio <5 Above high normal Choles terol Risk Ratio J[facility]AN ([facility]) non-HDL-C 171 mg/dL Non-hdl-c [facility] ([facility]) ID Date Data Source [id number] 09/25/2020 08:05:00 AM EST [place] ([facility]) Name Value Range Interpretation Code Description Data Angela rce(s) Supporting Document(s) glucose, fasting 175 mg/dL 70-100 Above high normal Glucose, Fas ting [facility] ([facility]) creatinine for GFR 0.68 mg/dL 0.55-1.30 Creatinine for GF R [place] ([facility]) blood urea nitrogen 15 mg/dL 7-18 Blood Urea Nitro gen [facility] ([facility]) sodium level 136 mEq/L 136-145 Sodium Level JONATAN ([facility]) glomerular filtration rate > 60.0 >60 Glomerula r Filtration Rate [facility] ([facility]) chloride level 100 mEq/L 98-107 Chloride Level [place] ([facility]) carbon dioxide level 28 mEq/L 21-32 Carbon Dioxide Level [place] ([facility]) potassium serum 4.6 mEq/L 3.5-5.1 Potassium Serum [place] ([facility]) anion gap 8 mEq/L 8-16 Anion Gap [place] ([facility]) calcium level 9.3 mg/dL 8.5-10.1 Calcium Level [place] ( [facility]) AST/SGOT 26 U/L 7-37 AST/SGOT [place] ([facility]) ALT/SGPT 30 U/L 12-78 ALT/SGPT [place] ([facility]) alkaline phosphatase 100 U/L 45-117 Alkaline Phosph atase [place] ([facility]) bilirubin,total 0.3 mg/dL 0.2-1.0 Bilirubin,total [place] NA ([facility]) albumin/globulin ratio 1.2-2.2 Below low normal Albumin /globulin Ratio [facility] ([facility]) albumin 3.6 gm/dL 3.2-5.2 Albumin [place] ([facility]) total protein 7.2 gm/dL 6.4-8.2 Total Protein [place] ( [facility]) ID Date Data Source [id number] 09/25/2020 08:05:00 AM EST [place] ([facility]) Name Value Range Interpretation Code Description Data Angela rce(s) Supporting Document(s) red blood count 5.04 10 4.00-5.40 Red Blood Count [place] ([facility]) white blood count 7.0 10 4.0-10.0 White Blood Count [place] ([facility]) hemoglobin 12.7 g/dL 12.0-15.5 Hemoglobin [place] ([facility]) hematocrit 41.6 % 36.0-47.0 Hematocrit [place] ([facility]) mean corpuscular volume 82.5 fL 80.0-96.0 Mean Corpusc ular Volume [place] ([facility]) mean corpuscular hemoglobin 25.2 pg 27.0-33.0 Below low nor mal Mean Corpuscular Hemoglobin [place] ([facility]) mean corpuscular HGB conc 30.5 g/dL 32.0-36.5 Below low rosalio l Mean Corpuscular HGB Conc [facility] ([facility]) red cell distribution width 14.7 % 11.5-14.5 Above high no rmal Red Cell Distribution Width [place] ([facility]) platelet count, automated 234 10 150-450 Platelet C ount, Automated [place] ([facility]) neutrophils % 47.5 % 36.0-66.0 Neutrophils % [place] ( [facility]) lymph % 39.3 % 24.0-44.0 Lymph % [facility] ([facility]) mono % 8.5 % 0.0-5.0 Above high normal [place] % [place] ([facility]) eos % 3.6 % 0.0-3.0 Above high normal Eos % [place] ([facility]) baso % 0.4 % 0.0-1.0 Baso % [place] ([facility]) immature granulocyte % 0.7 % 0-3.0 Immature Gran ulocyte % [place] ([facility]) nucleated red blood cell % 0.0 % 0-0 Nucleated Red Blood Cell % [place] ([facility]) lymph # 2.7 10 1.5-5.0 Lymph # [place] ([facility]) neutrophils # 3.3 10 1.5-8.5 Neutrophils # [place] ( [facility]) mono # 0.6 10 0.0-0.8 [place] # [place] ([facility]) baso # 0.0 10 0.0-0.2 Baso # [place] ([facility]) eos # 0.3 10 0.0-0.5 Eos # [place] ([facility]) ID Date Data Source [id number] 09/25/2020 08:05:00 AM EST [place] ([facility]) Name Value Range Interpretation Code Description Data Angela rce(s) Supporting Document(s) Hemoglobin A1c/Hemoglobin.total in Blood 7.7 % Hemoglobin a1C [place] ([facility]) estimated average glucose 174 mg/dL 60-110 Above high norm al Estimated Average Glucose [place] ([facility]) ID Date Data Source [id number] 09/25/2020 08:05:00 AM EST [place] ([facility]) Name Value Range Interpretation Code Description Data Angela rce(s) Supporting Document(s) total 25(oh) vitamin D 23.2 NG/mL 30.0-100.0 Below low normal T otal 25(Oh) Vitamin D [place] ([facility]) ID Date Data Source [id number] 09/25/2020 08:05:00 AM EST [place] ([facility]) Name Value Range Interpretation Code Description Data Angela rce(s) Supporting Document(s) thyroid stimulating hormone 5.730 uIU/mL 0.358-3.740 Above high no rmal Thyroid Stimulating Hormone [place] ([facility]) free T4 0.99 NG/dL 0.76-1.46 Free T4 [place] ([facility]) ID Date Data Source [id number] 09/25/2020 08:05:00 AM EST [place] ([facility]) Name Value Range Interpretation Code Description Data Angela rce(s) Supporting Document(s) cholesterol level 206 mg/dL <200 Above high normal Cholesterol Level [place] ([facility]) triglycerides level 325 mg/dL <150 Above high normal Triglycer ides Level [place] ([facility]) cholesterol risk ratio <5 Above high normal Choles terol Risk Ratio [place] ([facility]) HDL cholesterol 35 mg/dL >40 Below low normal HDL Cholestero l [place] ([facility]) Cholesterol in LDL [Mass/volume] in Serum or Plasma 106 mg/dL <100 Above high normal LDL Cholesterol [facility] ([facility]) non-HDL-C 171 mg/dL Non-hdl-c [facility] ([facility]) ID Date Data Source [id number] 09/25/2020 08:05:00 AM EST [place] ([facility]) Name Value Range Interpretation Code Description Data Angela rce(s) Supporting Document(s) glucose, fasting 175 mg/dL 70-100 Above high normal Glucose, Fas ting [place] ([facility]) blood urea nitrogen 15 mg/dL 7-18 Blood Urea Nitro gen [place] ([facility]) sodium level 136 mEq/L 136-145 Sodium Level [facility] (No [facility]) potassium serum 4.6 mEq/L 3.5-5.1 Potassium Serum [place] ([facility]) glomerular filtration rate > 60.0 >60 Glomerula r Filtration Rate [place] ([facility]) creatinine for GFR 0.68 mg/dL 0.55-1.30 Creatinine for GF R [place] ([facility]) anion gap 8 mEq/L 8-16 Anion Gap [place] ([facility]) carbon dioxide level 28 mEq/L 21-32 Carbon Dioxide Level [place] ([facility]) chloride level 100 mEq/L 98-107 Chloride Level [place] ([facility]) AST/SGOT 26 U/L 7-37 AST/SGOT [place] ([facility]) alkaline phosphatase 100 U/L 45-117 Alkaline Phosph atase [place] ([facility]) calcium level 9.3 mg/dL 8.5-10.1 Calcium Level [place] ( [facility]) ALT/SGPT 30 U/L 12-78 ALT/SGPT [place] ([facility]) albumin/globulin ratio 1.2-2.2 Below low normal Albumin /globulin Ratio [place] ([facility]) albumin 3.6 gm/dL 3.2-5.2 Albumin [place] ([facility]) total protein 7.2 gm/dL 6.4-8.2 Total Protein [place] ( [facility]) bilirubin,total 0.3 mg/dL 0.2-1.0 Bilirubin,total [place] ([facility]) ID Date Data Source [id number] 09/25/2020 08:05:00 AM EST [place] ([facility]) Name Value Range Interpretation Code Description Data Angela rce(s) Supporting Document(s) red blood count 5.04 10 4.00-5.40 Red Blood Count [place] ([facility]) hemoglobin 12.7 g/dL 12.0-15.5 Hemoglobin [place] ([facility]) hematocrit 41.6 % 36.0-47.0 Hematocrit [place] ([facility]) white blood count 7.0 10 4.0-10.0 White Blood Count [place] ([facility]) mean corpuscular volume 82.5 fL 80.0-96.0 Mean Corpusc ular Volume [facility] ([facility]) mean corpuscular hemoglobin 25.2 pg 27.0-33.0 Below low nor mal Mean Corpuscular Hemoglobin [place] ([facility]) mean corpuscular HGB conc 30.5 g/dL 32.0-36.5 Below low rosalio l Mean Corpuscular HGB Conc [facility] ([facility]) red cell distribution width 14.7 % 11.5-14.5 Above high no rmal Red Cell Distribution Width [facility] ([facility]) neutrophils % 47.5 % 36.0-66.0 Neutrophils % [place] ( [facility]) lymph % 39.3 % 24.0-44.0 Lymph % [place] ([facility]) platelet count, automated 234 10 150-450 Platelet C ount, Automated [place] ([facility]) mono % 8.5 % 0.0-5.0 Above high normal [place] % [place] ([facility]) eos % 3.6 % 0.0-3.0 Above high normal Eos % [place] ([facility]) baso % 0.4 % 0.0-1.0 Baso % [place] ([facility]) immature granulocyte % 0.7 % 0-3.0 Immature Gran ulocyte % [place] ([facility]) lymph # 2.7 10 1.5-5.0 Lymph # [place] ([facility]) neutrophils # 3.3 10 1.5-8.5 Neutrophils # [place] ( [facility]) nucleated red blood cell % 0.0 % 0-0 Nucleated Red Blood Cell % [place] ([facility]) mono # 0.6 10 0.0-0.8 [place] # [place] ([facility]) baso # 0.0 10 0.0-0.2 Baso # [place] ([facility]) eos # 0.3 10 0.0-0.5 Eos # [place] ([facility]) ID Date Data Source [id number] 09/25/2020 08:05:00 AM EST [place] ([facility]) Name Value Range Interpretation Code Description Data Angela rce(s) Supporting Document(s) thyroid stimulating hormone 5.730 uIU/mL 0.358-3.740 Above high no rmal Thyroid Stimulating Hormone [place] ([facility]) free T4 0.99 NG/dL 0.76-1.46 Free T4 [place] ([facility]) ID Date Data Source [id number] 09/25/2020 08:05:00 AM EST [place] ([facility]) Name Value Range Interpretation Code Description Data Angela rce(s) Supporting Document(s) triglycerides level 325 mg/dL <150 Above high normal Triglycer ides Level [place] ([facility]) cholesterol level 206 mg/dL <200 Above high normal Cholesterol Level [place] ([facility]) Cholesterol in LDL [Mass/volume] in Serum or Plasma 106 mg/dL <100 Above high normal LDL Cholesterol [facility] ([facility]) non-HDL-C 171 mg/dL Non-hdl-c [place] ([facility]) HDL cholesterol 35 mg/dL >40 Below low normal HDL Cholestero l [place] ([facility]) cholesterol risk ratio <5 Above high normal Choles terol Risk Ratio [place] ([facility]) ID Date Data Source [id number] 09/25/2020 08:05:00 AM EST [place] ([facility]) Name Value Range Interpretation Code Description Data Angela rce(s) Supporting Document(s) glucose, fasting 175 mg/dL 70-100 Above high normal Glucose, Fas ting [place] ([facility]) blood urea nitrogen 15 mg/dL 7-18 Blood Urea Nitro gen [place] ([facility]) creatinine for GFR 0.68 mg/dL 0.55-1.30 Creatinine for GF R [place] ([facility]) glomerular filtration rate > 60.0 >60 Glomerula r Filtration Rate [place] ([facility]) chloride level 100 mEq/L 98-107 Chloride Level [place] ([facility]) potassium serum 4.6 mEq/L 3.5-5.1 Potassium Serum [place] ([facility]) carbon dioxide level 28 mEq/L 21-32 Carbon Dioxide Level [place] ([facility]) sodium level 136 mEq/L 136-145 Sodium Level [place] (No [facility]) AST/SGOT 26 U/L 7-37 AST/SGOT [place] ([facility]) calcium level 9.3 mg/dL 8.5-10.1 Calcium Level [place] ( [facility]) anion gap 8 mEq/L 8-16 Anion Gap [place] ([facility]) ALT/SGPT 30 U/L 12-78 ALT/SGPT [place] ([facility]) alkaline phosphatase 100 U/L 45-117 Alkaline Phosph atase [place] ([facility]) albumin 3.6 gm/dL 3.2-5.2 Albumin [place] ([facility]) total protein 7.2 gm/dL 6.4-8.2 Total Protein [place] ( [facility]) bilirubin,total 0.3 mg/dL 0.2-1.0 Bilirubin,total [place] ([facility]) albumin/globulin ratio 1.2-2.2 Below low normal Albumin /globulin Ratio [place] ([facility]) ID Date Data Source [id number] 09/25/2020 08:05:00 AM EST [place] ([facility]) Name Value Range Interpretation Code Description Data Angela rce(s) Supporting Document(s) red blood count 5.04 10 4.00-5.40 Red Blood Count [place] ([facility]) white blood count 7.0 10 4.0-10.0 White Blood Count [place] ([facility]) mean corpuscular volume 82.5 fL 80.0-96.0 Mean Corpusc ular Volume [place] ([facility]) hematocrit 41.6 % 36.0-47.0 Hematocrit [facility] ([facility]) hemoglobin 12.7 g/dL 12.0-15.5 Hemoglobin [place] ([facility]) red cell distribution width 14.7 % 11.5-14.5 Above high no rmal Red Cell Distribution Width [place] ([facility]) mean corpuscular hemoglobin 25.2 pg 27.0-33.0 Below low nor mal Mean Corpuscular Hemoglobin [place] ([facility]) mean corpuscular HGB conc 30.5 g/dL 32.0-36.5 Below low rosalio l Mean Corpuscular HGB Conc [place] ([facility]) platelet count, automated 234 10 150-450 Platelet C ount, Automated [place] ([facility]) lymph % 39.3 % 24.0-44.0 Lymph % [place] ([facility]) neutrophils % 47.5 % 36.0-66.0 Neutrophils % [place] ( [facility]) mono % 8.5 % 0.0-5.0 Above high normal [place] % [place] ([facility]) immature granulocyte % 0.7 % 0-3.0 Immature Gran ulocyte % [place] ([facility]) eos % 3.6 % 0.0-3.0 Above high normal Eos % [place] ([facility]) baso % 0.4 % 0.0-1.0 Baso % [place] ([facility]) lymph # 2.7 10 1.5-5.0 Lymph # [place] ([facility]) neutrophils # 3.3 10 1.5-8.5 Neutrophils # [place] ( [facility]) mono # 0.6 10 0.0-0.8 [place] # [place] ([facility]) nucleated red blood cell % 0.0 % 0-0 Nucleated Red Blood Cell % [place] ([facility]) eos # 0.3 10 0.0-0.5 Eos # [place] ([facility]) baso # 0.0 10 0.0-0.2 Baso # [place] ([facility]) ID Date Data Source [id number] 09/25/2020 08:05:00 AM EST [place] ([facility]) Name Value Range Interpretation Code Description Data Angela rce(s) Supporting Document(s) estimated average glucose 174 mg/dL 60-110 Above high norm al Estimated Average Glucose [place] ([facility]) Hemoglobin A1c/Hemoglobin.total in Blood 7.7 % Hemoglobin a1C [place] ([facility]) ID Date Data Source [id number] 09/25/2020 08:05:00 AM EST [place] ([facility]) Name Value Range Interpretation Code Description Data Angela rce(s) Supporting Document(s) total 25(oh) vitamin D 23.2 NG/mL 30.0-100.0 Below low normal T otal 25(Oh) Vitamin D [place] ([facility]) ID Date Data Source [id number] 09/25/2020 08:05:00 AM EST [place] ([facility]) Name Value Range Interpretation Code Description Data Angela rce(s) Supporting Document(s) thyroid stimulating hormone 5.730 uIU/mL 0.358-3.740 Above high no rmal Thyroid Stimulating Hormone [place] ([facility]) free T4 0.99 NG/dL 0.76-1.46 Free T4 [place] ([facility]) ID Date Data Source [id number] 09/25/2020 08:05:00 AM EST [place] ([facility]) Name Value Range Interpretation Code Description Data Angela rce(s) Supporting Document(s) cholesterol level 206 mg/dL <200 Above high normal Cholesterol Level [place] ([facility]) triglycerides level 325 mg/dL <150 Above high normal Triglycer ides Level [place] ([facility]) HDL cholesterol 35 mg/dL >40 Below low normal HDL Cholestero l [place] ([facility]) Cholesterol in LDL [Mass/volume] in Serum or Plasma 106 mg/dL <100 Above high normal LDL Cholesterol [facility] ([facility]) non-HDL-C 171 mg/dL Non-hdl-c [place] ([facility]) cholesterol risk ratio <5 Above high normal Choles terol Risk Ratio [place] ([facility]) ID Date Data Source [id number] 09/25/2020 08:05:00 AM EST [place] ([facility]) Name Value Range Interpretation Code Description Data Angela rce(s) Supporting Document(s) glucose, fasting 175 mg/dL 70-100 Above high normal Glucose, Fas ting [place] ([facility]) blood urea nitrogen 15 mg/dL 7-18 Blood Urea Nitro gen [place] ([facility]) creatinine for GFR 0.68 mg/dL 0.55-1.30 Creatinine for GF R [place] ([facility]) sodium level 136 mEq/L 136-145 Sodium Level [place] (No [facility]) glomerular filtration rate > 60.0 >60 Glomerula r Filtration Rate [place] ([facility]) potassium serum 4.6 mEq/L 3.5-5.1 Potassium Serum [place] NA ([facility]) chloride level 100 mEq/L 98-107 Chloride Level [place] ([facility]) anion gap 8 mEq/L 8-16 Anion Gap [place] ([facility]) carbon dioxide level 28 mEq/L 21-32 Carbon Dioxide Level [place] ([facility]) ALT/SGPT 30 U/L 12-78 ALT/SGPT [place] ([facility]) calcium level 9.3 mg/dL 8.5-10.1 Calcium Level [place] ( [facility]) AST/SGOT 26 U/L 7-37 AST/SGOT [place] ([facility]) total protein 7.2 gm/dL 6.4-8.2 Total Protein [place] ( [facility]) alkaline phosphatase 100 U/L 45-117 Alkaline Phosph atase [facility] ([facility]) bilirubin,total 0.3 mg/dL 0.2-1.0 Bilirubin,total [place] NA ([facility]) albumin/globulin ratio 1.2-2.2 Below low normal Albumin /globulin Ratio [facility] ([facility]) albumin 3.6 gm/dL 3.2-5.2 Albumin [facility] ([facility]) ID Date Data Source [id number] 09/25/2020 08:05:00 AM EST [place] ([facility]) Name Value Range Interpretation Code Description Data Angela rce(s) Supporting Document(s) white blood count 7.0 10 4.0-10.0 White Blood Count [place] ([facility]) red blood count 5.04 10 4.00-5.40 Red Blood Count [facility] ([facility]) mean corpuscular volume 82.5 fL 80.0-96.0 Mean Corpusc ular Volume [facility] ([facility]) hematocrit 41.6 % 36.0-47.0 Hematocrit [facility] ([facility]) hemoglobin 12.7 g/dL 12.0-15.5 Hemoglobin [facility] ([facility]) mean corpuscular hemoglobin 25.2 pg 27.0-33.0 Below low nor mal Mean Corpuscular Hemoglobin [facility] ([facility]) red cell distribution width 14.7 % 11.5-14.5 Above high no rmal Red Cell Distribution Width [facility] ([facility]) mean corpuscular HGB conc 30.5 g/dL 32.0-36.5 Below low rosalio l Mean Corpuscular HGB Conc [facility] ([facility]) lymph % 39.3 % 24.0-44.0 Lymph % [place] ([facility]) platelet count, automated 234 10 150-450 Platelet C ount, Automated [place] ([facility]) neutrophils % 47.5 % 36.0-66.0 Neutrophils % [place] ( [facility]) baso % 0.4 % 0.0-1.0 Baso % [facility] ([facility]) mono % 8.5 % 0.0-5.0 Above high normal [place] % [facility] ([facility]) eos % 3.6 % 0.0-3.0 Above high normal Eos % [facility] ([facility] [facility]) immature granulocyte % 0.7 % 0-3.0 Immature Gran ulocyte % JONATAN ([facility]) nucleated red blood cell % 0.0 % 0-0 Nucleated Red Blood Cell % JONATAN ([facility]) neutrophils # 3.3 10 1.5-8.5 Neutrophils # JONATAN ( [facility]) lymph # 2.7 10 1.5-5.0 Lymph # JONATAN ([facility]) mono # 0.6 10 0.0-0.8 [place] # JONATAN ([facility]) eos # 0.3 10 0.0-0.5 Eos # JONATAN ([facility]) baso # 0.0 10 0.0-0.2 Baso # JONATAN ([facility]) ID Date Data Source [id number] 09/25/2020 08:05:00 AM EST JONAATN ([facility]) Name Value Range Interpretation Code Description Data Angela rce(s) Supporting Document(s) Hemoglobin A1c/Hemoglobin.total in Blood 7.7 % Hemoglobin a1C [place] ([facility]) estimated average glucose 174 mg/dL 60-110 Above high norm al Estimated Average Glucose [place] ([facility]) ID Date Data Source [id number] 09/25/2020 08:05:00 AM EST JONATAN ([facility]) Name Value Range Interpretation Code Description Data Angela rce(s) Supporting Document(s) total 25(oh) vitamin D 23.2 NG/mL 30.0-100.0 Below low normal T otal 25(Oh) Vitamin D [place] ([facility]) ID Date Data Source [id number] 09/25/2020 08:05:00 AM EST JONATAN ([facility]) Name Value Range Interpretation Code Description Data Angela rce(s) Supporting Document(s) thyroid stimulating hormone 5.730 uIU/mL 0.358-3.740 Above high no rmal Thyroid Stimulating Hormone [place] ([facility]) free T4 0.99 NG/dL 0.76-1.46 Free T4 JONATAN ([facility]) ID Date Data Source [id number] 09/25/2020 08:05:00 AM EST JONATAN ([facility]) Name Value Range Interpretation Code Description Data Angela rce(s) Supporting Document(s) triglycerides level 325 mg/dL <150 Above high normal Triglycer ides Level JONATAN ([facility]) cholesterol level 206 mg/dL <200 Above high normal Cholesterol Level JONATAN ([facility]) Cholesterol in LDL [Mass/volume] in Serum or Plasma 106 mg/dL <100 Above high normal LDL Cholesterol JONATAN ([facility]) cholesterol risk ratio <5 Above high normal Choles terol Risk Ratio J[place]AN ([facility]) non-HDL-C 171 mg/dL Non-hdl-c [place]AN ([facility]) HDL cholesterol 35 mg/dL >40 Below low normal HDL Cholestero l JONATAN ([facility]) ID Date Data Source [id number] 09/25/2020 08:05:00 AM EST [place] ([facility]) Name Value Range Interpretation Code Description Data Angela rce(s) Supporting Document(s) glucose, fasting 175 mg/dL 70-100 Above high normal Glucose, Fas ting JONATAN ([facility]) blood urea nitrogen 15 mg/dL 7-18 Blood Urea Nitro gen [place] ([facility]) glomerular filtration rate > 60.0 >60 Glomerula r Filtration Rate [place] ([facility]) potassium serum 4.6 mEq/L 3.5-5.1 Potassium Serum [place] NA ([facility]) sodium level 136 mEq/L 136-145 Sodium Level JONATAN ([facility]) creatinine for GFR 0.68 mg/dL 0.55-1.30 Creatinine for GF R [place] ([facility]) calcium level 9.3 mg/dL 8.5-10.1 Calcium Level [place] ( [facility]) chloride level 100 mEq/L 98-107 Chloride Level [place] ([facility]) anion gap 8 mEq/L 8-16 Anion Gap [place] ([facility]) carbon dioxide level 28 mEq/L 21-32 Carbon Dioxide Level [place] ([facility]) alkaline phosphatase 100 U/L 45-117 Alkaline Phosph atase [place] ([facility]) AST/SGOT 26 U/L 7-37 AST/SGOT [place] ([facility]) bilirubin,total 0.3 mg/dL 0.2-1.0 Bilirubin,total [place] ([facility]) ALT/SGPT 30 U/L 12-78 ALT/SGPT [place] ([facility]) albumin/globulin ratio 1.2-2.2 Below low normal Albumin /globulin Ratio J[place] ([facility]) total protein 7.2 gm/dL 6.4-8.2 Total Protein [place] ( [facility]) albumin 3.6 gm/dL 3.2-5.2 Albumin [place] ([facility]) ID Date Data Source [id number] 09/25/2020 08:05:00 AM EST [place] ([facility]) Name Value Range Interpretation Code Description Data Angela rce(s) Supporting Document(s) red blood count 5.04 10 4.00-5.40 Red Blood Count [place] ([facility]) white blood count 7.0 10 4.0-10.0 White Blood Count [place] ([facility]) hemoglobin 12.7 g/dL 12.0-15.5 Hemoglobin [place] ([facility]) mean corpuscular volume 82.5 fL 80.0-96.0 Mean Corpusc ular Volume [place] ([facility]) hematocrit 41.6 % 36.0-47.0 Hematocrit [place] ([facility]) mean corpuscular hemoglobin 25.2 pg 27.0-33.0 Below low nor mal Mean Corpuscular Hemoglobin [place] ([facility]) red cell distribution width 14.7 % 11.5-14.5 Above high no rmal Red Cell Distribution Width [place] ([facility]) platelet count, automated 234 10 150-450 Platelet C ount, Automated [place] ([facility]) mean corpuscular HGB conc 30.5 g/dL 32.0-36.5 Below low rosalio l Mean Corpuscular HGB Conc [place] ([facility]) eos % 3.6 % 0.0-3.0 Above high normal Eos % [place] ([facility]) neutrophils % 47.5 % 36.0-66.0 Neutrophils % [place] ( [facility]) lymph % 39.3 % 24.0-44.0 Lymph % [place] ([facility]) mono % 8.5 % 0.0-5.0 Above high normal [place] % [place] ([facility]) nucleated red blood cell % 0.0 % 0-0 Nucleated Red Blood Cell % [place] ([facility]) immature granulocyte % 0.7 % 0-3.0 Immature Gran ulocyte % [place] ([facility]) baso % 0.4 % 0.0-1.0 Baso % [place] ([facility]) eos # 0.3 10 0.0-0.5 Eos # [place] ([facility]) neutrophils # 3.3 10 1.5-8.5 Neutrophils # [place] ( [facility]) lymph # 2.7 10 1.5-5.0 Lymph # [place] ([facility]) mono # 0.6 10 0.0-0.8 [place] # [place] ([facility]) baso # 0.0 10 0.0-0.2 Baso # [place] ([facility]) ID Date Data Source [id number] 09/25/2020 08:05:00 AM EST [place] ([facility]) Name Value Range Interpretation Code Description Data Angela rce(s) Supporting Document(s) estimated average glucose 174 mg/dL 60-110 Above high norm al Estimated Average Glucose [place] ([facility]) Hemoglobin A1c/Hemoglobin.total in Blood 7.7 % Hemoglobin a1C [place] ([facility]) ID Date Data Source [id number] 09/25/2020 08:05:00 AM EST [place] ([facility]) Name Value Range Interpretation Code Description Data Angela rce(s) Supporting Document(s) total 25(oh) vitamin D 23.2 NG/mL 30.0-100.0 Below low normal T otal 25(Oh) Vitamin D [place] ([facility]) ID Date Data Source [id number] 09/25/2020 08:05:00 AM EST [place] ([facility]) Name Value Range Interpretation Code Description Data Angela rce(s) Supporting Document(s) free T4 0.99 NG/dL 0.76-1.46 Free T4 [place] ([facility]) thyroid stimulating hormone 5.730 uIU/mL 0.358-3.740 Above high no rmal Thyroid Stimulating Hormone [place] ([facility]) ID Date Data Source [id number] 09/25/2020 08:05:00 AM EST [place] ([facility]) Name Value Range Interpretation Code Description Data Angela rce(s) Supporting Document(s) cholesterol level 206 mg/dL <200 Above high normal Cholesterol Level [place] ([facility]) HDL cholesterol 35 mg/dL >40 Below low normal HDL Cholestero l J[place] ([facility]) triglycerides level 325 mg/dL <150 Above high normal Triglycer ides Level [place] ([facility]) cholesterol risk ratio <5 Above high normal Choles terol Risk Ratio J[place] ([facility]) Cholesterol in LDL [Mass/volume] in Serum or Plasma 106 mg/dL <100 Above high normal LDL Cholesterol J[facility]AN ([facility]) non-HDL-C 171 mg/dL Non-hdl-c [place] ([facility]) ID Date Data Source [id number] 09/25/2020 08:05:00 AM EST [place] ([facility]) Name Value Range Interpretation Code Description Data Angela rce(s) Supporting Document(s) glucose, fasting 175 mg/dL 70-100 Above high normal Glucose, Fas ting [place] ([facility]) blood urea nitrogen 15 mg/dL 7-18 Blood Urea Nitro gen [place] ([facility]) sodium level 136 mEq/L 136-145 Sodium Level J[place]AN ([facility]) potassium serum 4.6 mEq/L 3.5-5.1 Potassium Serum [place] ([facility]) creatinine for GFR 0.68 mg/dL 0.55-1.30 Creatinine for GF R [place] ([facility]) glomerular filtration rate > 60.0 >60 Glomerula r Filtration Rate [place] ([facility]) calcium level 9.3 mg/dL 8.5-10.1 Calcium Level [place] ( [facility]) chloride level 100 mEq/L 98-107 Chloride Level [place] ([facility]) carbon dioxide level 28 mEq/L 21-32 Carbon Dioxide Level [place] ([facility]) anion gap 8 mEq/L 8-16 Anion Gap [place] ([facility]) ALT/SGPT 30 U/L 12-78 ALT/SGPT [place] ([facility]) alkaline phosphatase 100 U/L 45-117 Alkaline Phosph atase [place] ([facility]) bilirubin,total 0.3 mg/dL 0.2-1.0 Bilirubin,total [place] ([facility]) total protein 7.2 gm/dL 6.4-8.2 Total Protein [place] ( [facility]) AST/SGOT 26 U/L 7-37 AST/SGOT [place] ([facility]) albumin 3.6 gm/dL 3.2-5.2 Albumin [place] ([facility]) albumin/globulin ratio 1.2-2.2 Below low normal Albumin /globulin Ratio [place] ([facility]) ID Date Data Source [id number] 09/25/2020 08:05:00 AM EST [place] ([facility]) Name Value Range Interpretation Code Description Data Angela rce(s) Supporting Document(s) white blood count 7.0 10 4.0-10.0 White Blood Count [place] ([facility]) red blood count 5.04 10 4.00-5.40 Red Blood Count [place] ([facility]) mean corpuscular hemoglobin 25.2 pg 27.0-33.0 Below low nor mal Mean Corpuscular Hemoglobin J[place]AN ([facility]) mean corpuscular volume 82.5 fL 80.0-96.0 Mean Corpusc ular Volume J[place]AN ([facility]) hematocrit 41.6 % 36.0-47.0 Hematocrit J[place]AN ([facility]) hemoglobin 12.7 g/dL 12.0-15.5 Hemoglobin J[place]AN ([facility]) platelet count, automated 234 10 150-450 Platelet C ount, Automated [place] ([facility]) mean corpuscular HGB conc 30.5 g/dL 32.0-36.5 Below low rosalio l Mean Corpuscular HGB Conc JON[place]AN ([facility]) red cell distribution width 14.7 % 11.5-14.5 Above high no rmal Red Cell Distribution Width [place] ([facility]) lymph % 39.3 % 24.0-44.0 Lymph % [place] ([facility]) mono % 8.5 % 0.0-5.0 Above high normal [place] % [place]AN ([facility]) neutrophils % 47.5 % 36.0-66.0 Neutrophils % [place] ( [facility]) eos % 3.6 % 0.0-3.0 Above high normal Eos % [place] ([facility]) immature granulocyte % 0.7 % 0-3.0 Immature Gran ulocyte % [place] ([facility]) nucleated red blood cell % 0.0 % 0-0 Nucleated Red Blood Cell % [place] ([facility]) baso % 0.4 % 0.0-1.0 Baso % [place] ([facility]) eos # 0.3 10 0.0-0.5 Eos # [place] ([facility]) mono # 0.6 10 0.0-0.8 [place] # [place] ([facility]) lymph # 2.7 10 1.5-5.0 Lymph # [place] ([facility]) neutrophils # 3.3 10 1.5-8.5 Neutrophils # [place]AN ( [facility]) baso # 0.0 10 0.0-0.2 Baso # [place]AN ([facility]) ID Date Data Source [id number] 05/12/2020 09:24:31 AM EDT [facility] Measurements & CalculationsHeight: 64 inches (5 ft. 4 in.) 162.56 cm Weight: 321.8 pounds 146.27 kg Body Mass Index (BMI): 55.44BMI Interpretation: Morbidly ObeseBody Surface Area (BSA): 2.40Weight Management Education Done (Nutrition/Physical Activity)Vital SignsTemperature: 97.2F 36.22C tympanic Pulse Rate: 92 beats/minuteRespiratory Rate: 16 respirations/minuteBlood Pressure: 128/89 left arm sitting automaticO2 Saturation: 97% room air sittingInitial Intake Information From: patientRoom #: 11Infectious Disease / Travel ScreeningRecent travel for you or any close contacts? NoHave you had any close contact with anyone diagnosed with or under investigation for COVID-19 (coronavirus)? NoFever? NoRespiratory symptoms: cough, cold, congestion, shortness of breath, difficulty breathing? NoLoss of smell? NoLoss of taste? NoSmoking, Tobacco, Vaping or Smoke Exposure StatusSmoke Status: former smokerTobacco Use: NoDo you vape? NoMenstrual HistoryLast Menstrual Period (LMP): 05/06/2020LMP History: DefiniteAny possibility of ? NoComments: tubalHealthcare HistorySince your last office visit...Have you been admitted to the hospital? NoHave you been to an emergency room (ER) or urgent care clinic? No - [facility] Emergency room (ER) or urgent care date reported today: 01/15/2020Have you seen another healthcare provider? Yes - pulmonary, pt, neurologistHave you seen a dentist? Yes - ncfhcIntake performed by: Coco Andrade MA, May 12, 2020 9:29 AMRate Your HealthIn general, would you say your health is? FairPain AssessmentAre you currently having any pain which... You would like your provider to address? No Affects your activity level? NoDepression Screening - PHQ-2Over the last two weeks, have you... Had little interest or pleasure in doing things? More than half the days Been feeling down, depressed, or hopeless? More than half the days PHQ-2 Score: 4Anxiety Screening - MIRELA-2Over the last two weeks, have you been... Feeling nervous, anxious, or on edge? Nearly every day Unable to stop or control worrying? Nearly every day MIRELA-2 Score: 6Food InsecurityWithin the past year...Did you worry whether your food would run out before you got money to buy more? Never trueWas there a time when the food you bought didn't last and you didn't have money to get more? Never trueGeneralized Anxiety Disorder 7-Item Screening (MIRELA-7)Answer Guide:0 = Not at all1 = Several days2 = Over half the days3 = Nearly every dayOver the last 2 weeks, how often have you been bothered by the following problems?Feeling nervous, anxious, or on edge: 3Not being able to stop or control worryinWorrying too much about different things: 3Trouble relaxinBeing so restless that it's hard to sit still: 0Becoming easily annoyed or irritable: 1Feeling afraid as if something awful might happen: 3Answer Guide:0 = Not difficult at all1 = Somewhat difficult 2 = Very difficult3 = Extremely difficultHow difficult have these made it for you to do your work, take care of things at home, or get along with other people? 3GAD-7 Screening Results MIRELA-2 Score: 6GAD-7 Score: 15Functional Impairment: Extremely difficultRecommendation: Severe anxietyPHQ-9 1. Over the last 2 weeks, patient reports the following frequency of symptoms: a. Little interest or pleasure in doing things -More than half the days b. Feeling down, depressed, or hopeless -More than half the days c. Trouble falling asleep, staying asleep, or sleeping too much -More than half the days d. Feeling tired or having little energy -Nearly every day e. Poor appetite or overeating -Not at all f. Feeling bad about yourself, feeling that you are a failure, or feeling that you have let yourself or your family down -Nearly every day g. Trouble concentrating on things such as reading the newspaper or watching television -Not at all h. Moving or speaking so slowly that other people could have noticed. Or being so fidgety or restless that you have been moving around a lot more than usual -Not at all i. Thinking that you would be better off or that you want to hurt yourself in some way -Not at all2. If you checked off any problems, how difficult have these problems made it for you to do your work, take care of things at home, or get along with other people? -Extremely DifficultToday's PHQ-9 Results Score: 12 Severity: Moderate Diagnosis Recommendation: Major Depression Functional Impairment: Extremely DifficultToday's Follow-Up Action Depression follow-up done. Follow-Up Action: Referred to Behavioral Health Manager Of Planning for initial evaluationScreening, Brief Intervention, & Referral to Treatment (SBIRT)Pre- Screening Questions How many times have you have 4 or more drinks in a day? 0How many times have you used an illegal drug or used a prescription medication for a non-medical reason? 0Performed by: Coco Andrade MA, May 12, 2020 9:34 AMPatient History Medical History:AsthmaAnxietyDepressionMigrainesabscess on armsADHDSurgical History:D+CC-section q1Xezjv tiedAbscess removed from right armCholecystectomyFamily History:Family History of AlcoholismFamily History of ArthritisFH DepressionFH MigrainesFH SeizuresFH HeadachesFH Lung CancerFH DiabetesSocial/Personal History: Chief Complaintfollow-up visit labs room 11History of Present Illness (HPI)40 YO female here for lab follow up. Patient refuses flu shot. Patient would also like to be refered to mental health. Pt states going thru some legal situations with family court and CPS involved. Pt states increased Anxiety and Depression. Pt would like a referral to for therapy. Pt would like a copy of her lab results to be faxed to her Neurologist. HPI performed by: Robyn VITALE, May 12, 2020 10:03 AMTransitions of Care InboundProblem ReviewProblem List was reviewed and/or updated during this visit.Medication Reconciliation & ReviewMedication List was reviewed and/or updated during this visit, including review of any [id number] medications, herbal therapies, and/or supplements.Allergy ReviewAllergy List was reviewed and/or updated during this visit.Adult Preventive CareProvider Calculated and Reviewed all Clinical Protocols for patient today. Labs/Meds/Other Counseling-Nutrition and Physical Activity:BMI Interpretation: Morbidly Obese (05/12/2020) Counseling: Done (05/12/2020) Physical Activity: Done (05/12/2020)Review of Systems General: Denies loss of appetite, chills, dizziness, fatigue, fever, continued fever, headache, feeling ill, sweats, night sweats, sleep disturbances, weight loss. Eyes: Denies blurring of vision, double vision, irritation, discharge, vision loss, eye pain, eye swelling, droopy eyelid, sensitivity to light, redness, itching. Ears/Nose /Throat: Denies earache, ear discharge, ringing in ears, decreased hearing, nasal congestion, nosebleeds, runny nose, sore throat, hoarseness, difficulty swallowing, dry mouth, tooth pain, bleeding gums, swollen glands. Cardiovascular: Denies chest pain, palpitations, feeling faint, trouble breathing w/exertion, SOB upon lying down, SOB at night, peripheral edema, elevated blood pressure, decreased heart rate. Respiratory: Denies cough, difficulty breathing, shortness of breath, excessive sputum, coughing up blood, wheezing, chest pain. Breast: Denies discoloration, tenderness, breast changes, breast lump, nipple discharge. Gastrointestinal: Denies nausea, vomiting, bleeding, burning, itching, irritation, cramps, diarrhea, constipation. Genitourinary: Denies urinary incontinence, pain with urination, burning with urination, urinary frequency, urinary hesitancy, urinary urgency, urinary urgency at night, incomplete emptying, blood in urine, absence of menstrual period, heavy menstrual period, prolonged menstrual period, pelvic pain. Musculoskeletal: Denies back pain, joint pain, leg pain, other pain-see comments, joint swelling, body aches, muscle aches, muscle cramps, muscle weakness, stiffness, recent injury. Skin: Denies rash, hives, redness, itching, dryness, nail changes, suspicious lesions, athlete's foot, rash on palms, rash on bottom of feet. Neurologic: Denies muscle impairment, weakness, numbness/tingling, seizures, slurred speech, feeling faint, tremors, vertigo, paralysis on one side, paralysis on both sides. Psychiatric: Complains of depression, anxiety, feeling stressed. Denies memory loss, mental disturbance, suicidal ideation, homicidal ideation, hallucinations, paranoia, hearing voices. Endocrine: Denies cold intolerance, heat intolerance, excessive thirst, exc essive hunger, excessive urination, weight loss, weight gain. Heme/Lymphatic: Denies abnormal bruising, bleeding, enlarged lymph nodes. Physical ExamGeneral Appearance: well nourished, well hydrated, no acute distressEyes, External: conjunctivae and lids normal, EOMIRespiratory, Auscultation: clear to auscultation bilaterally; no rales, rhonchi, or wheezesRespiratory, Effort: no intercostal retractions or use of accessory musclesCardiovascular, Auscultation: S1, S2 audible; no murmur, rub, or gallop; RRRPeripheral Circulation: no clubbing, cyanosis, edema, or varicositiesAbdomen: soft, non-tender, no masses, bowel sounds normalGait & Station: normalSkin, Inspection: no rashes, lesions, or ulcerationsOrientation: oriented to time, place, and personMood & Affect: no depression, anxiety, or agitationJudgment & Insight: intactCare Management Plan Transitions of CareInboundRate Your HealthIn general, would you say your health is? FairAssessment & Plan Problems:Assessed:Prediabetes (YUI59-H00.03) Assessment: Instructions: HGA1c trending up. Please continue lifestyle changes to include healthy diet and physical activities. Please try to limit sugars, carbohydrates and sodium in your diet. Please try to avoid processed foods.Person consulting for explanation of examination or test findings (ICD- V65.8) (HBB30-F02.2) Assessment: Instructions: We have reviewed your lab re sults with you today. Please continue medications as prescribed. Please try to maintain healthy diet and physical activities.Please try to avoid processed foods. Please try to maintain adequate intake of water daily.Anxiety depression (ICD-300.09) (PSZ56-Z86.8) Assessment: Instructions: Please continue medications as prescribed. We have made a referral for you today. We will contact you to set this up.Hyperlipidemia, unspecified (OUL51-F93.5) Assessment: Instructions: LDL within normal limits, HDL decreased at 36 goal is 40. Please continue healthy diet and physical activities. Please try to avoid processed foods. please try to include food good in healthy cholesterol. Please try to maintain adequate intake of water daily. May take a daily over the counter fish oil tablet.Assessment not Saved Person consulting for explanation of examination or test findings (WKS74-K86.2): Patient Instructions/Care Plan: Prediabetes: HGA1c trending up. Please continue lifestyle changes to include healthy diet and physical activities. Please try to limit sugars, carbohydrates and sodium in your diet. Please try to avoid processed foods.Person consulting for explanation of examination or test findin gs: We have reviewed your lab results with you today. Please continue medications as prescribed. Please try to maintain healthy diet and physical activities.Please try to avoid processed foods. Please try to maintain adequate intake of water daily.Anxiety depression: Please continue medications as prescribed. We have made a referral for you today. We will contact you to set this up.Hyperlipidemia- unspecified: LDL within normal limits, HDL decreased at 36 goal is 40. Please continue healthy diet and physical activities. Please try to avoid processed foods. please try to include food good in healthy ch olesterol. Please try to maintain adequate intake of water daily. May take a daily over the counter fish oil tablet. Plan developed in collaboration with patient and/or familyMedications:ZOFRAN 4 MG ORAL TABLETLIDOCAINE 5 % EXTERNAL PATCHARNUITY ELLIPTA 100 MCG/ACT INHALATION AEROSOL POWDER BREATH ACTIVATEDVITAMIN D3 CAPSULEGUAIFENESIN TABLETTIZANIDINE HCL 4 MG ORAL TABLETNAPROXEN 500 MG ORAL TABLETALBUTEROL SULFATE HFA 108 (90 BASE) MCG/ACT INHALATION AEROSOL SOLUTIONALBUTEROL SULFATE (2.5 MG/3ML) 0.083% INHALATION NEBULIZATION SOLUTIONFULL KIT NEBULIZER SETIPRATROPIUM BROMIDE 0.06 % NASAL SOLUTIONZOLOFT 100 MG ORAL TABLETFLONASE 50 MCG/ACT NASAL SUSPENSIONMONTELUKAST SODIUM 10 MG ORAL TABLETIMITREX 100 MG ORAL TABLETDEPAKOTE 500 MG ORAL TABLET DELAYED RELEASEHYDROXYZINE HCL 50 MG ORAL TABLETMedication Changes:Added: ZOFRAN 4 MG ORAL TABLET-as neededAllergies:* SEASONAL (Critical)Orders:Mental Health Consult [CPT-27823] COMP METABOLIC PANEL [CPT-99253] CBC W/DIFF [CPT-24299] HgBA1c [CPT-92513] LIPID PANEL [CPT-02019] TSH [CPT-49482] T-4 free [CPT-66545] Vitamin D 250H Unspecified [CPT-79678] URINALYSIS [CPT-74169] Urine Culture [CPT-73292] Adult - Ofc Vst, EST, Level IV [CPT-56568] Follow-Up Return to clinic: 3 months for follow up Clinical Visit Summary Completed Name Value Range Interpretation Code Description Data Angela rce(s) Supporting Document(s) ID Date Data Source [id number] 05/06/2020 10:30:00 AM EDT [facility] Value Range Interpretation Code Description Data Angela rce(s) Supporting Document(s) BG FASTING 154 mg/dL 70-100 H [facility] ID Date Data Source [id number] 05/06/2020 10:30:00 AM EDT [facility] Name Value Range Interpretation Code Description Data Angela rce(s) Supporting Document(s) HGBA1C 6.8 % N [facility] ID Date Data Source [id number] 05/06/2020 10:30:00 AM EDT [facility] Name Value Range Interpretation Code Description Data Angela rce(s) Supporting Document(s) HCT 42.9 % 36.0-47.0 N [facility] HGB 13.6 g/dL 12.0-15.5 N [facility] MCH 31.7 G/DL pg 32.0-36.5 L [facility] MCHC 26.1 PG % 27.0-33.0 L [facility] PLATELETS 270 10 10*3/mm3 150-450 N [facility] RBC 5.22 10 10*6/mm3 4.00-5.40 N [facility] RDW 13.9 % 11.5-14.5 N [facility] WBC TOTAL 7.2 4.0-10.0 N [facility] ID Date Data Source [id number] 05/06/2020 10:27:16 AM EDT [facility] In-House Blood TestsDate/Time Colle cted: May 06, 2020 10:27 AMTest Result Reference Range Normal ValueComments: blood drawn in right AC. Pt tolerated well. Salvador Corbinga MEDICAL INSTRUCTOR, May 06, 2020 10:28 AMAssessment & Plan Orders:[id number] Vst-Est Level I [CPT-62406] 26897 - Venipuncture [CPT-05809] P M Name Value Range Interpretation Code Description Data Angela rce(s) Supporting Document(s) Procedure Social History Code Duration Value Status Description Data Source(s ) Smoking 06/18/2020 12:00:00 AM EDT Patient is a former smoker completed Patient is a former smoker TIN ([facility], ) Vital Signs ID Date Data Source UNK Name Value Range Interpretation Code Description Data Source(s) Diastolic blood pressure 78 mm[Hg] 78 mm[Hg] JONATAN ([facility]) Body height 64 [in_i] 64 [in_i] JONATAN ([facility]) Body mass index (BMI) [Ratio] 54.5 kg/m2 54.5 k g/m2 JONATAN ([facility]) Systolic blood pressure 112 mm[Hg] 112 mm[Hg] A THENA ([facility]) Body weight 5080 [oz_av] 5080 [oz_av] JONATAN ([facility]) Diastolic blood pressure 78 mm[Hg] 78 mm[Hg] JONATAN ([facility]) Body height 64 [in_i] 64 [in_i] JONATAN ([facility]) Body mass index (BMI) [Ratio] 54.5 kg/m2 54.5 k g/m2 JONATAN ([facility]) Systolic blood pressure 112 mm[Hg] 112 mm[Hg] A [facility] ([facility]) Body weight 5080 [oz_av] 5080 [oz_av] JONATAN ([facility]) Diastolic blood pressure 78 mm[Hg] 78 mm[Hg] JONATAN ([facility]) Body height 64 [in_i] 64 [in_i] JONATAN ([facility]) Body mass index (BMI) [Ratio] 54.5 kg/m2 54.5 k g/m2 JONATAN ([facility]) Systolic blood pressure 112 mm[Hg] 112 mm[Hg] A THENA ([facility]) Body weight 5080 [oz_av] 5080 [oz_av] JONATAN ([facility]) Diastolic blood pressure 78 mm[Hg] 78 mm[Hg] JONATAN ([facility]) Body height 64 [in_i] 64 [in_i] JONATAN ([facility]) Body mass index (BMI) [Ratio] 54.5 kg/m2 54.5 k g/m2 JONATAN ([facility]) Systolic blood pressure 112 mm[Hg] 112 mm[Hg] A [facility] ([facility]) Body weight 5080 [oz_av] 5080 [oz_av] JONATAN ([facility]) Diastolic blood pressure 78 mm[Hg] 78 mm[Hg] JONATAN ([facility]) Diastolic blood pressure 93 mm[Hg] 93 mm[Hg] JONATAN ([facility]) Body height 64 [in_i] 64 [in_i] JONATAN ([facility]) Body mass index (BMI) [Ratio] 55.3 kg/m2 55.3 k g/m2 JONATAN ([facility]) Systolic blood pressure 107 mm[Hg] 107 mm[Hg] A THENA ([facility]) Systolic blood pressure 129 mm[Hg] 129 mm[Hg] A THENA ([facility]) Body weight 5156 [oz_av] 5156 [oz_av] JONATAN ([facility]) Systolic blood pressure 107 mm[Hg] 107 mm[Hg] A THENA ([facility]) Diastolic blood pressure 78 mm[Hg] 78 mm[Hg] JONATAN ([facility]) Diastolic blood pressure 93 mm[Hg] 93 mm[Hg] JONATAN ([facility]) Body height 64 [in_i] 64 [in_i] JONATAN ([facility]) Systolic blood pressure 129 mm[Hg] 129 mm[Hg] A THENA ([facility]) Body mass index (BMI) [Ratio] 55.3 kg/m2 55.3 k g/m2 JONATAN ([facility]) Body weight 5156 [oz_av] 5156 [oz_av] JONATAN ([facility]) Diastolic blood pressure 78 mm[Hg] 78 mm[Hg] JONATAN ([facility]) Diastolic blood pressure 93 mm[Hg] 93 mm[Hg] JONATAN ([facility]) Body height 64 [in_i] 64 [in_i] JONATAN ([facility]) Body mass index (BMI) [Ratio] 55.3 kg/m2 55.3 k g/m2 JONATAN ([facility]) Systolic blood pressure 107 mm[Hg] 107 mm[Hg] A THENA ([facility]) Systolic blood pressure 129 mm[Hg] 129 mm[Hg] A THENA ([facility]) Body weight 5156 [oz_av] 5156 [oz_av] JONATAN ([facility]) Diastolic blood pressure 78 mm[Hg] 78 mm[Hg] JONATAN ([facility]) Diastolic blood pressure 93 mm[Hg] 93 mm[Hg] JONATAN ([facility]) Body height 64 [in_i] 64 [in_i] JONATAN ([facility]) Body mass index (BMI) [Ratio] 55.3 kg/m2 55.3 k g/m2 JONATAN ([facility]) Systolic blood pressure 107 mm[Hg] 107 mm[Hg] A THENA ([facility]) Systolic blood pressure 129 mm[Hg] 129 mm[Hg] A THENA ([facility]) Body weight 5156 [oz_av] 5156 [oz_av] JONATAN ([facility]) Body height 64 [in_i] 64 [in_i] JONATAN ([facility]) Systolic blood pressure 129 mm[Hg] 129 mm[Hg] A THENA ([facility]) Body weight 5156 [oz_av] 5156 [oz_av] JONATAN ([facility]) Body mass index (BMI) [Ratio] 55.3 kg/m2 55.3 k g/m2 JONATAN ([facility]) Diastolic blood pressure 78 mm[Hg] 78 mm[Hg] JONATAN ([facility]) Diastolic blood pressure 93 mm[Hg] 93 mm[Hg] JONATAN ([facility]) Systolic blood pressure 107 mm[Hg] 107 mm[Hg] A THENA ([facility]) Systolic blood pressure 107 mm[Hg] 107 mm[Hg] A [facility] ([facility]) Body mass index (BMI) [Ratio] 55.3 kg/m2 55.3 k g/m2 JONATAN ([facility]) Diastolic blood pressure 78 mm[Hg] 78 mm[Hg] JONATAN ([facility]) Diastolic blood pressure 93 mm[Hg] 93 mm[Hg] JONATAN ([facility]) Body height 64 [in_i] 64 [in_i] JONATAN ([facility]) Systolic blood pressure 129 mm[Hg] 129 mm[Hg] A THENA ([facility]) Body weight 5156 [oz_av] 5156 [oz_av] JONATAN ([facility]) Diastolic blood pressure 78 mm[Hg] 78 mm[Hg] JNOATAN ([facility]) Diastolic blood pressure 93 mm[Hg] 93 mm[Hg] JONATAN ([facility]) Body height 64 [in_i] 64 [in_i] JONATAN ([facility]) Body mass index (BMI) [Ratio] 55.3 kg/m2 55.3 k g/m2 JONATAN ([facility]) Systolic blood pressure 107 mm[Hg] 107 mm[Hg] A THENA ([facility]) Systolic blood pressure 129 mm[Hg] 129 mm[Hg] A THENA ([facility]) Body weight 5156 [oz_av] 5156 [oz_av] JONATAN ([facility]) Body height 64 [in_i] 64 [in_i] JONATAN ([facility]) Body height 64 [in_i] 64 [in_i] JONATAN ([facility]) Body height 64 [in_i] 64 [in_i] JONATAN ([facility]) Body height 64 [in_i] 64 [in_i] JONATAN ([facility]) Body height 64 [in_i] 64 [in_i] JONATAN ([facility]) Body height 64 [in_i] 64 [in_i] JONATAN ([facility]) Body height 64 [in_i] 64 [in_i] JONATAN ([facility]) Body height 64 [in_i] 64 [in_i] JONATAN ([facility]) Body height 64 [in_i] 64 [in_i] JONATAN ([facility]) Body height 64 [in_i] 64 [in_i] JONATAN ([facility]) Body height 64 [in_i] 64 [in_i] JONATAN ([facility]) Body height 64 [in_i] 64 [in_i] JONATAN ([facility]) Body height 64 [in_i] 64 [in_i] JONATAN ([facility]) Body height 64 [in_i] 64 [in_i] JONATAN ([facility]) Body height 64 [in_i] 64 [in_i] JONATAN ([facility]) Body height 64 [in_i] 64 [in_i] JONATAN ([facility]) Body height 64 [in_i] 64 [in_i] JONATAN ([facility]) Body height 64 [in_i] 64 [in_i] JONATAN ([facility]) Body height 64 [in_i] 64 [in_i] JONATAN ([facility]) Body height 64 [in_i] 64 [in_i] JONATAN ([facility]) Body height 64 [in_i] 64 [in_i] JONATAN ([facility]) Body height 64 [in_i] 64 [in_i] JONATAN ([facility]) Body height 64 [in_i] 64 [in_i] JONATAN ([facility]) Body height 64 [in_i] 64 [in_i] JONATAN ([facility]) Body height 64 [in_i] 64 [in_i] JONATAN ([facility]) Body height 64 [in_i] 64 [in_i] JONATAN ([facility]) Body height 64 [in_i] 64 [in_i] JONATAN ([facility]) Systolic blood pressure 110 mm[Hg] 110 mm[Hg] M EDELOINA ([facility], ) Diastolic blood pressure 80 mm[Hg] 80 mm[Hg] TIN ([facility], ) Heart rate 103 /min 103 /min [facility] ([facility], ) Oxygen saturation in Arterial blood by Pulse oximetry 97 % 97 % [facility], ) Body height 64 [in_i] 64 [in_i] TIN ([facility], ) 5'4" Body weight 323.00 [lb_av] 323.00 [lb_av] MEDEN T ([facility], ) Body mass index (BMI) [Ratio] 55.4 kg/m2 55.4 k g/m2 MEDELOINA ([facility], ) [place] body weight 120 [lb_av] 120 [lb_av] MEDEN T ([facility], ) Body weight 146.513 kg 146.513 kg TIN ([facility], ) Diastolic blood pressure 89 mm[Hg] 89 mm[Hg] JONATAN ([facility]) Body mass index (BMI) [Ratio] 55.44 kg/m2 55.44 kg/m2 JONATAN ([facility]) Body height 64 [in_i] 64 [in_i] JONATAN ([facility]) Body weight 5148.8 [oz_av] 5148.8 [oz_av] ATHEN A ([facility]) Systolic blood pressure 128 mm[Hg] 128 mm[Hg] A [facility] ([facility]) Body height 64 [in_i] 64 [in_i] JONATAN ([facility]) Body mass index (BMI) [Ratio] 55.44 kg/m2 55.44 kg/m2 JONATAN ([facility]) Systolic blood pressure 128 mm[Hg] 128 mm[Hg] A [facility] ([facility]) Diastolic blood pressure 89 mm[Hg] 89 mm[Hg] JONATAN ([facility]) Diastolic blood pressure 89 mm[Hg] 89 mm[Hg] JONATAN ([facility]) Body weight 5148.8 [oz_av] 5148.8 [oz_av] ATHEN A ([facility]) Body mass index (BMI) [Ratio] 55.44 kg/m2 55.44 kg/m2 JONATAN ([facility]) Systolic blood pressure 128 mm[Hg] 128 mm[Hg] A THENA ([facility]) Body weight 5148.8 [oz_av] 5148.8 [oz_av] ATHEN A ([facility]) Body height 64 [in_i] 64 [in_i] JONATAN ([facility]) Diastolic blood pressure 89 mm[Hg] 89 mm[Hg] JONATAN ([facility]) Body height 64 [in_i] 64 [in_i] JONATAN ([facility]) Body weight 5148.8 [oz_av] 5148.8 [oz_av] ATHEN A ([facility]) Body mass index (BMI) [Ratio] 55.44 kg/m2 55.44 kg/m2 JONATAN ([facility]) Systolic blood pressure 128 mm[Hg] 128 mm[Hg] A [facility] ([facility]) Diastolic blood pressure 89 mm[Hg] 89 mm[Hg] JONATAN ([facility]) Body height 64 [in_i] 64 [in_i] JONATAN ([facility]) Body mass index (BMI) [Ratio] 55.44 kg/m2 55.44 kg/m2 JONATAN ([facility]) Systolic blood pressure 128 mm[Hg] 128 mm[Hg] A THENA ([facility]) Body weight 5148.8 [oz_av] 5148.8 [oz_av] ATHEN A ([facility]) Diastolic blood pressure 89 mm[Hg] 89 mm[Hg] JONATAN ([facility]) Body height 64 [in_i] 64 [in_i] JONATAN ([facility]) Body mass index (BMI) [Ratio] 55.44 kg/m2 55.44 kg/m2 JONATAN ([facility]) Systolic blood pressure 128 mm[Hg] 128 mm[Hg] A THENA ([facility]) Body weight 5148.8 [oz_av] 5148.8 [oz_av] ATHEN A ([facility]) Diastolic blood pressure 89 mm[Hg] 89 mm[Hg] JONATAN ([facility]) Body height 64 [in_i] 64 [in_i] JONATAN ([facility]) Body mass index (BMI) [Ratio] 55.44 kg/m2 55.44 kg/m2 JONATAN ([facility]) Systolic blood pressure 128 mm[Hg] 128 mm[Hg] A THENA ([facility]) Body weight 5148.8 [oz_av] 5148.8 [oz_av] ATHEN A ([facility]) Diastolic blood pressure 89 mm[Hg] 89 mm[Hg] JONATAN ([facility]) Body height 64 [in_i] 64 [in_i] JONATAN ([facility]) Body mass index (BMI) [Ratio] 55.44 kg/m2 55.44 kg/m2 JONATAN ([facility]) Systolic blood pressure 128 mm[Hg] 128 mm[Hg] A THENA ([facility]) Body weight 5148.8 [oz_av] 5148.8 [oz_av] ATHEN A ([facility]) Diastolic blood pressure 89 mm[Hg] 89 mm[Hg] JONATAN ([facility]) Body height 64 [in_i] 64 [in_i] JONATAN ([facility]) Body mass index (BMI) [Ratio] 55.44 kg/m2 55.44 kg/m2 JONATAN ([facility]) Systolic blood pressure 128 mm[Hg] 128 mm[Hg] A THENA ([facility]) Body weight 5148.8 [oz_av] 5148.8 [oz_av] ATHEN A ([facility]) Diastolic blood pressure 89 mm[Hg] 89 mm[Hg] JONATAN ([facility]) Body height 64 [in_i] 64 [in_i] JONATAN ([facility]) Body mass index (BMI) [Ratio] 55.44 kg/m2 55.44 kg/m2 JONATAN ([facility]) Systolic blood pressure 128 mm[Hg] 128 mm[Hg] A THENA ([facility]) Body weight 5148.8 [oz_av] 5148.8 [oz_av] ATHEN A ([facility]) Body height 64 [in_i] 64 [in_i] JONATAN ([facility]) Diastolic blood pressure 89 mm[Hg] 89 mm[Hg] JONATAN ([facility]) Body mass index (BMI) [Ratio] 55.44 kg/m2 55.44 kg/m2 JONATAN ([facility]) Systolic blood pressure 128 mm[Hg] 128 mm[Hg] A THENA ([facility]) Body weight 5148.8 [oz_av] 5148.8 [oz_av] ATHEN A ([facility]) Diastolic blood pressure 89 mm[Hg] 89 mm[Hg] JONATAN ([facility]) Body height 64 [in_i] 64 [in_i] JONATAN ([facility]) Body mass index (BMI) [Ratio] 55.44 kg/m2 55.44 kg/m2 JONATAN ([facility]) Systolic blood pressure 128 mm[Hg] 128 mm[Hg] A THENA ([facility]) Body weight 5148.8 [oz_av] 5148.8 [oz_av] ATHEN A ([facility]) Diastolic blood pressure 89 mm[Hg] 89 mm[Hg] JONATAN ([facility]) Body height 64 [in_i] 64 [in_i] JONATAN ([facility]) Body mass index (BMI) [Ratio] 55.44 kg/m2 55.44 kg/m2 JONATAN ([facility]) Systolic blood pressure 128 mm[Hg] 128 mm[Hg] A THENA ([facility]) Body weight 5148.8 [oz_av] 5148.8 [oz_av] ATHEN A ([facility]) Diastolic blood pressure 89 mm[Hg] 89 mm[Hg] JONATAN ([facility]) Body height 64 [in_i] 64 [in_i] JONATAN ([facility]) Body mass index (BMI) [Ratio] 55.44 kg/m2 55.44 kg/m2 JONATAN ([facility]) Systolic blood pressure 128 mm[Hg] 128 mm[Hg] A THENA ([facility]) Body weight 5148.8 [oz_av] 5148.8 [oz_av] ATHEN A ([facility]) Diastolic blood pressure 89 mm[Hg] 89 mm[Hg] JONATAN ([facility]) Body height 64 [in_i] 64 [in_i] JONATAN ([facility]) Body mass index (BMI) [Ratio] 55.44 kg/m2 55.44 kg/m2 JONATAN ([facility]) Systolic blood pressure 128 mm[Hg] 128 mm[Hg] A THENA ([facility]) Body weight 5148.8 [oz_av] 5148.8 [oz_av] ATHEN A ([facility]) Diastolic blood pressure 89 mm[Hg] 89 mm[Hg] JONATAN ([facility]) Body height 64 [in_i] 64 [in_i] JONATAN ([facility]) Body mass index (BMI) [Ratio] 55.44 kg/m2 55.44 kg/m2 JONATAN ([facility]) Systolic blood pressure 128 mm[Hg] 128 mm[Hg] A THENA ([facility]) Body weight 5148.8 [oz_av] 5148.8 [oz_av] ATHEN A ([facility]) Diastolic blood pressure 89 mm[Hg] 89 mm[Hg] JONATAN ([facility]) Body height 64 [in_i] 64 [in_i] JONATAN ([facility]) Body mass index (BMI) [Ratio] 55.44 kg/m2 55.44 kg/m2 JONATAN ([facility]) Systolic blood pressure 128 mm[Hg] 128 mm[Hg] A THENA ([facility]) Body weight 5148.8 [oz_av] 5148.8 [oz_av] ATHEN A ([facility]) Systolic blood pressure 128 mm[Hg] 128 mm[Hg] A [facility] ([facility]) Diastolic blood pressure 89 mm[Hg] 89 mm[Hg] JONATAN ([facility]) Body height 64 [in_i] 64 [in_i] JONATAN ([facility]) Body mass index (BMI) [Ratio] 55.44 kg/m2 55.44 kg/m2 JONATAN ([facility]) Body weight 5148.8 [oz_av] 5148.8 [oz_av] ATHEN A ([facility]) Diastolic blood pressure 89 mm[Hg] 89 mm[Hg] JONATAN ([facility]) Body height 64 [in_i] 64 [in_i] JONATAN ([facility]) Body mass index (BMI) [Ratio] 55.44 kg/m2 55.44 kg/m2 JONATAN ([facility]) Systolic blood pressure 128 mm[Hg] 128 mm[Hg] A THENA ([facility]) Body weight 5148.8 [oz_av] 5148.8 [oz_av] ATHEN A ([facility]) Diastolic blood pressure 89 mm[Hg] 89 mm[Hg] JONATAN ([facility]) Body height 64 [in_i] 64 [in_i] JONATAN ([facility]) Body mass index (BMI) [Ratio] 55.44 kg/m2 55.44 kg/m2 JONATAN ([facility]) Systolic blood pressure 128 mm[Hg] 128 mm[Hg] Lizzeth TOLBERT ([facility]) Body weight 5148.8 [oz_av] 5148.8 [oz_av] ATHEN A ([facility]) Patient Treatment Plan of Care Planned Activity Planned Date Details Description Data Source (s) ipratropium bromide 42 mcg (0.06 %) nasa l spray USE TWO SPRAYS IN EACH NOSTRIL ONCE DAILY 01/13/2021 12:00:00 AM EDT ATHEN A ([facility]) ipratropium bromide 42 mcg (0.06 %) nasa l spray USE TWO SPRAYS IN EACH NOSTRIL ONCE DAILY 01/13/2021 12:00:00 AM EDT ATHEN A ([facility]) ipratropium bromide 42 mcg (0.06 %) nasa l spray USE TWO SPRAYS IN EACH NOSTRIL ONCE DAILY 01/13/2021 12:00:00 AM EDT ATHEN A ([facility]) ipratropium bromide 42 mcg (0.06 %) nasa l spray USE TWO SPRAYS IN EACH NOSTRIL ONCE DAILY 01/13/2021 12:00:00 AM EDT ATHEN A ([facility]) ipratropium bromide 42 mcg (0.06 %) nasa l spray USE TWO SPRAYS IN EACH NOSTRIL ONCE DAILY 01/13/2021 12:00:00 AM EDT ATHEN A ([facility]) ipratropium bromide 42 mcg (0.06 %) nasa l spray USE TWO SPRAYS IN EACH NOSTRIL ONCE DAILY 01/13/2021 12:00:00 AM EDT ATHEN A ([facility]) ipratropium bromide 42 mcg (0.06 %) nasa l spray USE TWO SPRAYS IN EACH NOSTRIL ONCE DAILY 01/13/2021 12:00:00 AM EDT ATHEN A ([facility]) Prednisone 10 MG Oral Tablet JONATAN ([facility]) Doxycycline Monohydrate 100 MG Oral Capsule JONATAN ([facility]) Prednisone 10 MG Oral Tablet JONATAN ([facility]) Doxycycline Monohydrate 100 MG Oral Capsule JONATAN ([facility]) Prednisone 10 MG Oral Tablet JONATAN ([facility]) Doxycycline Monohydrate 100 MG Oral Capsule JONATAN ([facility]) benzonatate 100 MG Oral Capsule JONATAN ([facility]) Prednisone 10 MG Oral Tablet JONATAN ([facility]) Ergocalciferol [id number] UNT Oral Capsule JONATAN ([facility]) Doxycycline Monohydrate 100 MG Oral Capsule JONATAN ([facility]) Prednisone 10 MG Oral Tablet JONATAN ([facility]) Doxycycline Monohydrate 100 MG Oral Capsule JONATAN ([facility]) benzonatate 100 MG Oral Capsule JONATAN ([facility]) Prednisone 10 MG Oral Tablet JONATAN ([facility]) Doxycycline Monohydrate 100 MG Oral Capsule JONATAN ([facility]) benzonatate 100 MG Oral Capsule JONATAN ([facility]) Prednisone 10 MG Oral Tablet JONATAN ([facility]) Doxycycline Monohydrate 100 MG Oral Capsule JONATAN ([facility]) benzonatate 100 MG Oral Capsule JONATAN ([facility]) Prednisone 10 MG Oral Tablet JONATAN ([facility]) Doxycycline Monohydrate 100 MG Oral Capsule JONATAN ([facility]) benzonatate 100 MG Oral Capsule JONATAN ([facility]) Doxycycline Monohydrate 100 MG Oral Capsule JONATAN ([facility]) benzonatate 100 MG Oral Capsule JONATAN ([facility]) Prednisone 10 MG Oral Tablet JONATAN ([facility]) Doxycycline Monohydrate 100 MG Oral Capsule JONATAN ([facility]) benzonatate 100 MG Oral Capsule JONATAN ([facility]) Prednisone 10 MG Oral Tablet JONATAN ([facility]) Doxycycline Monohydrate 100 MG Oral Capsule JONATAN ([facility]) Prednisone 10 MG Oral Tablet JONATAN ([facility]) Doxycycline Monohydrate 100 MG Oral Capsule JONATAN ([facility]) benzonatate 100 MG Oral Capsule JONATAN ([facility]) Prednisone 10 MG Oral Tablet JONATAN ([facility]) Doxycycline Monohydrate 100 MG Oral Capsule JONATAN ([facility]) benzonatate 100 MG Oral Capsule JONATAN ([facility]) Prednisone 10 MG Oral Tablet JONATAN ([facility]) Doxycycline Monohydrate 100 MG Oral Capsule JONATAN ([facility]) benzonatate 100 MG Oral Capsule JONATAN ([facility]) Prednisone 10 MG Oral Tablet JONATAN ([facility]) Doxycycline Monohydrate 100 MG Oral Capsule JONATAN ([facility]) benzonatate 100 MG Oral Capsule JONATAN ([facility]) Prednisone 10 MG Oral Tablet JONATAN ([facility]) Doxycycline Monohydrate 100 MG Oral Capsule JONATAN ([facility]) benzonatate 100 MG Oral Capsule JONATAN ([facility]) Prednisone 10 MG Oral Tablet JONATAN ([facility]) Doxycycline Monohydrate 100 MG Oral Capsule JONATAN ([facility]) benzonatate 100 MG Oral Capsule JONATAN ([facility]) Doxycycline Monohydrate 100 MG Oral Capsule JONATAN ([facility]) benzonatate 100 MG Oral Capsule JONATAN ([facility]) Prednisone 10 MG Oral Tablet JONATAN ([facility]) Prednisone 10 MG Oral Tablet JONATAN ([facility])
[2021-06-07 06:22] VITALS: BP 144/79
--- OUTSIDE RECORDS SUMMARY | 2021-06-07 07:16 | CCD ---
Author Author [facility] Organization [facility] Address Unknown Phone Unavailable Care Team Providers Care [employer] Name Role Phone Fariha Walker MD Unavailable [...] Walker, Fariha Calle MD Unavailable Unavailable Walker, Fairha Calle MD Unavailable Unavailable Walker, Fariha Calle [...] Walker MD Unavailable Unavailable Juannikkoalmazhiginio Christen Unavailable [phone] Adam, Robyn CVICU NURSE CVICU NURSE Unavailable Unavailable Adam, A Robyn CVICU NURSE Unavailable Unavailable Adam, A Robyn CVICU NURSE Unavailable Unavailable Adam, A Robyn CVICU NURSE Unavailable Unavailable Adam, A Robyn CVICU NURSE Unavailable Unavailable Adam, A Robyn CVICU NURSE Unavailable Unavailable Adam, A Robyn CVICU NURSE Unavailable Unavailable Adam, A Robyn CVICU NURSE Unavailable Unavailable Adam, A Robyn CVICU NURSE Unavailable Unavailable Adam, A Robyn CVICU NURSE Unavailable Unavailable Adam, A Robyn CVICU NURSE Unavailable Unavailable Adam, A Robyn CVICU NURSE Unavailable Unavailable Adam, A Robyn CVICU NURSE Unavailable Unavailable Adam, A Robyn CVICU NURSE Unavailable Unavailable Adam, A Robyn CVICU NURSE Unavailable Unavailable Adam, A Robyn CVICU NURSE Unavailable Unavailable Adam, A Robyn CVICU NURSE Unavailable Unavailable Adam, A Robyn CVICU NURSE Unavailable Unavailable Adam, A Robyn CVICU NURSE Unavailable Unavailable Adam, A Robyn CVICU NURSE Unavailable Unavailable Adam, A Robyn CVICU NURSE Unavailable Unavailable Adam, A Robyn CVICU NURSE Unavailable Unavailable Adam, A Robyn CVICU NURSE Unavailable Unavailable Adam, A Robyn CVICU NURSE Unavailable Unavailable Adam, A Robyn CVICU NURSE Unavailable Unavailable Adam, A Robyn CVICU NURSE Unavailable Unavailable Adam, A Robyn CVICU NURSE Unavailable Unavailable Adam, A Robyn CVICU NURSE Unavailable Unavailable Adam, A Robyn CVICU NURSE Unavailable Unavailable Adam, A Robyn CVICU NURSE Unavailable Unavailable Adam, A Robyn CVICU NURSE Unavailable Unavailable Adam, A Robyn CVICU NURSE Unavailable Unavailable Billy Valenzuela MD Unavailable Unavailable [...] Unavailable Bulmaro, Simin Unavailable Adam, A Robyn CVICU NURSE Unavailable Unavailable Adam, A Robyn CVICU NURSE Unavailable Unavailable Adam, A Robyn CVICU NURSE Unavailable Unavailable Adam, A Robyn CVICU NURSE Unavailable Unavailable Adam, A Robyn CVICU NURSE Unavailable Unavailable Adam, A Robyn CVICU NURSE Unavailable Unavailable Adam, A Robyn CVICU NURSE Unavailable Unavailable Adam, A Robyn CVICU NURSE Unavailable Unavailable Adam, A Robyn CVICU NURSE Unavailable Unavailable Adam, A Robyn CVICU NURSE Unavailable Unavailable Adam, A Robyn CVICU NURSE Unavailable Unavailable Adam, A Robyn CVICU NURSE Unavailable Unavailable Adam, A Robyn CVICU NURSE Unavailable Unavailable Adam, A Robyn CVICU NURSE Unavailable Unavailable Adam, A Robyn CVICU NURSE Unavailable Unavailable Adam, A Robyn CVICU NURSE Unavailable Unavailable Adam, A Robyn CVICU NURSE Unavailable Unavailable Adam, A Robyn CVICU NURSE Unavailable Unavailable Aadm, A Robyn CVICU NURSE Unavailable Unavailable Adam, A Robyn CVICU NURSE Unavailable Unavailable Adam, A Robyn CVICU NURSE Unavailable Unavailable Adam, A Robyn CVICU NURSE Unavailable Unavailable Adam, A Robyn CVICU NURSE Unavailable Unavailable Adam, A Robyn CVICU NURSE Unavailable Unavailable Adam, A Robyn CVICU NURSE Unavailable Unavailable Adam, A Robyn CVICU NURSE Unavailable Unavailable Adam, A Robyn CVICU NURSE Unavailable Unavailable Adam, A Robyn CVICU NURSE Unavailable Unavailable Adam, A Robyn CVICU NURSE Unavailable Unavailable Adam, A Robyn CVICU NURSE Unavailable Unavailable Adam, A Robyn CVICU NURSE Unavailable Unavailable Re-disclosure Warning The records that [...] is protected by Article 27-F of the [place] Public Health law. If you continue you may have access to information: Regarding HIV / AIDS; Provided by facilities licensed or operated by the [facility] Office of Mental Health; or Provided by the [facility] Office for People With Developmental Disabilities. If such information is present, then the following [facility] mandated warning applies: This information has [...] law may result in a fine or usp sentence or both. A general authorization for the release of medical or other information is NOT sufficient authorization for further disc losure. Allergies and Adverse Reactions Type Description Substance Reaction Status Data Source(s ) Allergy to substance Allergy to substance Allergy to substance [facility] ([facility]) Allergy to substance Allergy to substance Allergy to substance [facility] ([facility]) Allergy to substance Allergy to substance Allergy to substance [facility] ([facility]) Allergy to substance Allergy to substance Allergy to substance [facility] ([facility]) Allergy to substance Allergy to substance Allergy to substance [facility] ([facility]) Allergy to substance Allergy to substance Allergy to substance [facility] ([facility]) Allergy to substance Allergy to substance Allergy to substance [facility] ([facility]) Allergy to substance Allergy to substance Allergy to substance [facility] ([facility]) Allergy to substance Allergy to substance Allergy to substance [facility] ([facility]) Allergy to substance Allergy to substance Allergy to substance [facility] ([facility]) Family History Family Member Name Family Member Gender Family Member Status Date o f Status Description Data Source(s) Unknown Male Problem MEDENT ([facility]) () - CIRRHOSIS Encounters Encounter Providers Location Date Indications Data Source(s ) Simin Chamberlain [facility]: [address] [place] [phone], Ph. Attender: Simin [facility] - [facility] Medical 05/22/2021 12:00:00 AM EDT [facility] ([facility]) Christen Whitten, NET MAKING SUPERVISOR-R: [address], [place] [address], Ph. Attender: Christen Whitten [facility] Medical 03/24/2021 12:00:00 AM EDT [facility] ([facility]) Christen Whitten, NET MAKING SUPERVISOR-R: [address], [place] [address], Ph. Attender: Christen Whitten [facility] Medical 03/24/2021 12:00:00 AM EDT [facility] ([facility]) Christen Whitten, NET MAKING SUPERVISOR-R: [address], [place] [address], Ph. Attender: Christen Whitten [facility] Medical 03/02/2021 12:00:00 AM EDT [facility] ([facility]) Christen Whitten, NET MAKING SUPERVISOR-R: [address], [place] [address], Ph. Attender: Christen Whitten [facility] Medical 03/02/2021 12:00:00 AM EDT [facility] ([facility]) Christen Whitten, NET MAKING SUPERVISOR-R: [address], [place] [address], Ph. Attender: Christen Whitten [facility] Medical 03/02/2021 12:00:00 AM EDT [facility] ([facility]) IAM Woo-BC: [address], [place] [address], Ph. Attender: Robyn VITALE [facility] Medical 02/10/2021 12:00:00 AM EDT [facility] ([facility]) Robyn Medina [facility]: [address], [place] [address], Ph. Attender: Robyn Medina [facility] Medical 02/10/2021 12:00:00 AM EDT [facility] ([facility]) Robyn Medina [facility]: [address], [place] [address], Ph. Attender: Robyn Medina [facility] Medical 02/10/2021 12:00:00 AM EDT [facility] ([facility]) Robyn Medina [facility]: [address], [place] [address], Ph. Attender: Robyn Medina [facility] Medical 02/10/2021 12:00:00 AM EDT [facility] ([facility]) Christen Whitten, NET MAKING SUPERVISOR-R: [address], [place] [address], Ph. Attender: Christen Whitten [facility] Medical 02/09/2021 12:00:00 AM EDT [facility] ([facility]) Christen Whitten, NET MAKING SUPERVISOR-R: [address], [place] [address], Ph. Attender: Christen Whitten [facility] Medical 02/09/2021 12:00:00 AM EDT [facility] ([facility]) Christen Whitten, NET MAKING SUPERVISOR-R: [address], [place] [address], Ph. Attender: Christen Whitten [facility] Medical 02/09/2021 12:00:00 AM EDT [facility] ([facility]) Christen Whitten, NET MAKING SUPERVISOR-R: [address], [place] [address], Ph. Attender: Christen Whitten [facility] Medical 02/09/2021 12:00:00 AM EDT [facility] ([facility]) Christen Whitten, NET MAKING SUPERVISOR-R: [address], [place] [address], Ph. Attender: Christen Whitten [facility] Medical 02/02/2021 12:00:00 AM EDT [facility] ([facility]) Christen Whitten, NET MAKING SUPERVISOR-R: [address], [place] [address], Ph. Attender: Christen Whitten [facility] Medical 02/02/2021 12:00:00 AM EDT [facility] ([facility]) Christen Whitten, NET MAKING SUPERVISOR-R: [address], [place] [address], Ph. Attender: Christen Whitten [facility] Medical 02/02/2021 12:00:00 AM EDT [facility] ([facility]) Christen Whitten, NET MAKING SUPERVISOR-R: [address], [place] [address], Ph. Attender: Christen Whitten [facility] Medical 02/02/2021 12:00:00 AM EDT [facility] ([facility]) Christen Whitten, NET MAKING SUPERVISOR-R: [address], [place] [address], Ph. Attender: Christen Whitten [facility] Medical 02/02/2021 12:00:00 AM EDT [facility] ([facility]) Luc Walker MD: [address] [place] [address], Ph. Attender: Luc Walker MD [facility] Medical 01/20/2021 12:00:00 AM EDT [facility] ([facility]) Luc Walker MD: [address] [place] [address], Ph. Attender: Luc Walker MD [facility] Medical 01/20/2021 12:00:00 AM EDT [facility] ([facility]) Luc Walker MD: [address] [place] [address], Ph. Attender: Luc Walker MD [facility] Medical 01/20/2021 12:00:00 AM EDT [facility] ([facility]) Luc Walker MD: [address] [place] [address], Ph. Attender: Luc Walker MD [facility] Medical 01/20/2021 12:00:00 AM EDT [facility] ([facility]) Luc Walker MD: [address] [place] [address], Ph. Attender: Luc Walker MD [facility] Medical 01/20/2021 12:00:00 AM EDT [facility] ([facility]) Luc Walker MD: [address], [place] [address], Ph. Attender: Luc Walker MD [facility] Medical 01/20/2021 12:00:00 AM EDT [place] ([facility]) Robyn Medina [facility]: [address], [place] [address], Ph. Attender: Robyn Medina [facility] Medical 01/13/2021 12:00:00 AM EDT [facility] ([facility]) Robyn Medina [facility]: [address], [place] [address], Ph. Attender: Robyn Medina [facility] Medical 01/13/2021 12:00:00 AM EDT [facility]) Robyn Medina [facility]: [address], [place] [address], Ph. Attender: Robyn Medina [facility] Medical 01/13/2021 12:00:00 AM EDT [facility] ([facility]) Robyn Medina [facility]: [address], [place] [address], Ph. Attender: Robyn Medina [facility] Medical 01/13/2021 12:00:00 AM EDT [facility] ([facility]) Robyn Medina [facility]: [address], [place] [address], Ph. Attender: Robyn Medina [facility] Medical 01/13/2021 12:00:00 AM EDT [facility] ([facility]) Robyn Medina [facility]: [address], [place] [address], Ph. Attender: Robyn Medina [facility] Medical 01/13/2021 12:00:00 AM EDT [facility] ([facility]) Robyn Medina [facility]: [address], [place] [address], Ph. Attender: Robyn Medina [facility] Medical 01/13/2021 12:00:00 AM EDT [facility] ([facility]) Robyn Medina [facility]: [address], [place] [address], Ph. Attender: Robyn Medina [facility] Medical 01/06/2021 12:00:00 AM EDT [facility] ([facility]) COLIN rIvingW-R: [address], [place] [address], Ph. Attender: Christen Whitten [facility] Medical 01/06/2021 12:00:00 AM EDT [facility] ([facility]) Robyn Medina [facility]: [address], [place] [address], Ph. Attender: Robyn Medina [facility] Medical 01/06/2021 12:00:00 AM EDT [facility] ([facility]) COLIN IrvingW-R: [address], [place] [address], Ph. Attender: Christen Whitten [facility] Medical 01/06/2021 12:00:00 AM EDT [facility] ([facility]) Robyn Medina [facility]: [address], [place] [address], Ph. Attender: Robyn Medina [facility] Medical 01/06/2021 12:00:00 AM EDT [facility] ([facility]) Christen Maria Dolores, NET MAKING SUPERVISOR-R: [address], [place] [address], Ph. Attender: Christen Maria Dolores [facility] Medical 01/06/2021 12:00:00 AM EDT [facility] ([facility]) Robyn Medina [facility]: [address], [place] [address], Ph. Attender: Robyn Medina [facility] Medical 01/06/2021 12:00:00 AM EDT [facility] ([facility]) Christen Maria Dolores, NET MAKING SUPERVISOR-R: [address], [place] [address], Ph. Attender: Christen Maria Dolores [facility] Medical 01/06/2021 12:00:00 AM EDT [facility] ([facility]) Robyn Medina [facility]: [address], [place] [address], Ph. Attender: Robyn Medina [facility] Medical 01/06/2021 12:00:00 AM EDT [facility] ([facility]) Christen Maria Dolores, NET MAKING SUPERVISOR-R: [address], [place] [address], Ph. Attender: Christen Whitten [facility] Medical 01/06/2021 12:00:00 AM EDT [facility] ([facility]) Robyn Medina [facility]: [address], [place] [address], Ph. Attender: Robyn Medina [facility] Medical 01/06/2021 12:00:00 AM EDT [facility] ([facility]) Christen Whitten, NET MAKING SUPERVISOR-R: [address], [place] [address], Ph. Attender: Christen Whitten [facility] Medical 01/06/2021 12:00:00 AM EDT [facility] ([facility]) [facility] [address], [place] [address], Ph. Attender: Robyn Medina [facility] Medical 01/06/2021 12:00:00 AM EDT [facility] ([facility]) Christen Whitten, NET MAKING SUPERVISOR-R: [address], [place] [address], Ph. Attender: Christen Whitten [facility] Medical 01/06/2021 12:00:00 AM EDT [facility] ([facility]) [facility]: [address], [place] [address], Ph. Attender: Robyn Medina [facility] Medical 01/06/2021 12:00:00 AM EDT [facility] ([facility]) Christen Maria Dolores, NET MAKING SUPERVISOR-R: [address], [place] [address], Ph. Attender: Christen Whitten [facility] Medical 01/06/2021 12:00:00 AM EDT [facility] ([facility]) Robyn Adam, [facility]: [address], [place] [address], Ph. Attender: Robyn Medina [facility] Medical 01/06/2021 12:00:00 AM EDT [facility] ([facility]) Christen Whitten, NET MAKING SUPERVISOR-R: [address], [place] [address], Ph. Attender: Christen Whitten [facility] Medical 01/06/2021 12:00:00 AM EDT [facility] ([facility]) Christen Whitten, NET MAKING SUPERVISOR-R: [address], [place] [address], Ph. Attender: Christen Whitten [facility] Medical 12/22/2020 12:00:00 AM EDT [facility] ([facility]) Christen Whitten, NET MAKING SUPERVISOR-R: [address], [place] [address], Ph. Attender: Christen Whitten [facility] Medical 12/22/2020 12:00:00 AM EDT [facility] ([facility]) Christen Whitten, NET MAKING SUPERVISOR-R: [address], [place] [address], Ph. Attender: Christen Whitten [facility] Medical 12/22/2020 12:00:00 AM EDT [facility] ([facility]) Christen Whitten, NET MAKING SUPERVISOR-R: [address], [place] [address], Ph. Attender: Christen Whitten [facility] Medical 12/22/2020 12:00:00 AM EDT [facility] ([facility]) Christen Whitten, NET MAKING SUPERVISOR-R: [address], [place] [address], Ph. Attender: Christen Whitten [facility] Medical 12/22/2020 12:00:00 AM EDT [facility] ([facility]) Christen Whitten, NET MAKING SUPERVISOR-R: [address], [place] [address], Ph. Attender: Christen Whitten [facility] Medical 12/22/2020 12:00:00 AM EDT [facility] ([facility]) Christen Whitten, NET MAKING SUPERVISOR-R: [address], [place] [address], Ph. Attender: Christen Whitten [facility] Medical 12/22/2020 12:00:00 AM EDT [facility] ([facility]) Christen Whitten, NET MAKING SUPERVISOR-R: [address], [place] [address], Ph. Attender: Christen Whitten [facility] Medical 12/22/2020 12:00:00 AM EDT [facility] ([facility]) Christen Whitten, NET MAKING SUPERVISOR-R: [address], [place] [address], Ph. Attender: Christen Whitten [facility] Medical 12/22/2020 12:00:00 AM EDT [facility] ([facility]) Christen Whitten, NET MAKING SUPERVISOR-R: [address], [place] [address], Ph. Attender: Christen Whitten [facility] Medical 12/22/2020 12:00:00 AM EDT [place] ([facility]) Christen Whitten, NET MAKING SUPERVISOR-R: [address] [place] [address], Ph. Attender: Christen Whitten [facility] Medical 12/11/2020 12:00:00 AM EDT [facility] ([facility]) Christen Whitten, NET MAKING SUPERVISOR-R: [address] [place] [address], Ph. Attender: Christen Whitten [facility] Medical 12/11/2020 12:00:00 AM EDT [place] ([facility]) Christen Whitten, NET MAKING SUPERVISOR-R: [address] [place] [address], Ph. Attender: Christen Whitten [facility] Medical 12/11/2020 12:00:00 AM EDT [place] ([facility]) Christen Whitten, NET MAKING SUPERVISOR-R: [address] [place] [address], Ph. Attender: Christen Whitten [facility] Medical 12/11/2020 12:00:00 AM EDT [facility] ([facility]) Christen Whitten, NET MAKING SUPERVISOR-R: [address] , [place] [address], Ph. Attender: Christen Whitten [facility] Medical 12/11/2020 12:00:00 AM EDT [facility] ([facility]) Christen Whitten, NET MAKING SUPERVISOR-R: [address] , [place] [address], Ph. Attender: Christen Whitten [facility] Medical 12/11/2020 12:00:00 AM EDT [facility] ([facility]) Christen Martineznikkocarmel, NET MAKING SUPERVISOR-R: [address] , [place] [address], Ph. Attender: Christen Whitten [facility] Medical 12/11/2020 12:00:00 AM EDT [facility] ([facility]) Christen Whitten, NET MAKING SUPERVISOR-R: [address] [place] [address], Ph. Attender: Christen Whitten [facility] Medical 12/11/2020 12:00:00 AM EDT [facility] ([facility]) Christen Ronnyalmazhiginio, NET MAKING SUPERVISOR-R: [address] , [place] [address], Ph. Attender: Christen Whitten [facility] Medical 12/11/2020 12:00:00 AM EDT [place] ([facility]) Christen Maria Dolores, NET MAKING SUPERVISOR-R: [address] [place] [address], Ph. Attender: Christen Whitten [facility] Medical 12/11/2020 12:00:00 AM EDT [place] ([facility]) Christen Whitten, NET MAKING SUPERVISOR-R: [address] , [place] [address], Ph. Attender: Christen Whitten [facility] Medical 12/11/2020 12:00:00 AM EDT [place] ([facility]) Christen Whitten, NET MAKING SUPERVISOR-R: [address] [place] [address], Ph. Attender: Christen Whitten [facility] Medical 12/03/2020 12:00:00 AM EDT [place] ([facility]) Christen Whitten, NET MAKING SUPERVISOR-R: [address] [place] [address], Ph. Attender: Christen Whitten [facility] Medical 12/03/2020 12:00:00 AM EDT [place] ([facility]) Christen Whitten, NET MAKING SUPERVISOR-R: [address] [place] [address], Ph. Attender: Christen Whitten [facility] Medical 12/03/2020 12:00:00 AM EDT [place] ([facility]) Christen Whitten, NET MAKING SUPERVISOR-R: [address] [place] [address], Ph. Attender: Christen Whitten [facility] Medical 12/03/2020 12:00:00 AM EDT [place] ([facility]) Christen Whitten, NET MAKING SUPERVISOR-R: [address] , [place] [address], Ph. Attender: Christen Whitten [facility] Medical 12/03/2020 12:00:00 AM EDT [place] ([facility]) Christen Whitten, NET MAKING SUPERVISOR-R: [address] , [place] [address], Ph. Attender: Crhisten Whitten [facility] Medical 12/03/2020 12:00:00 AM EDT [place] ([facility]) Christen Whitten, NET MAKING SUPERVISOR-R: [address] , [place] [address], Ph. Attender: Christen Whitten [facility] Medical 12/03/2020 12:00:00 AM EDT [facility]) Christen Whitten, NET MAKING SUPERVISOR-R: [address] [place] [address], Ph. Attender: Christen Whitten [facility] Medical 12/03/2020 12:00:00 AM EDT [facility]) Christen Whitten, NET MAKING SUPERVISOR-R: [address] , [place] [address], Ph. Attender: Christen Whitten [facility] Medical 12/03/2020 12:00:00 AM EDT [place] ([facility]) Christen Whitten, NET MAKING SUPERVISOR-R: [address] , [place] [address], Ph. Attender: Christen Ronnyalmazhiginio [facility] Medical 12/03/2020 12:00:00 AM EDT [place] ([facility]) Christen Whitten, NET MAKING SUPERVISOR-R: [address] , [place] [address], Ph. Attender: Christen Whitten [facility] Medical 12/03/2020 12:00:00 AM EDT [place] ([facility]) Christen Whitten, NET MAKING SUPERVISOR-R: [address] , [place] [address], Ph. Attender: Christen Whitten [facility] Medical 12/03/2020 12:00:00 AM EDT [place] ([facility]) Christen Ronnyalmazhiginio, NET MAKING SUPERVISOR-R: [address] [place] [address], Ph. Attender: Christen Martineznikkoalmazhiginio [facility] Medical 11/12/2020 12:00:00 AM EDT [place] ([facility]) Christen Martineznikkocarmel, NET MAKING SUPERVISOR-R: [address] [place] [address], Ph. Attender: Christen Ronnyalmazhiginio [facility] Medical 11/12/2020 12:00:00 AM EDT [place] ([facility]) Christen Martineznikkoalmazhiginio, NET MAKING SUPERVISOR-R: [address] , [place] [address], Ph. Attender: Christen Ronnyalmazhiginio [facility] Medical 11/12/2020 12:00:00 AM EDT [place] ([facility]) Christen Maria Dolores, NET MAKING SUPERVISOR-R: [address] , [place] [address], Ph. Attender: Christen Whitten [facility] Medical 11/12/2020 12:00:00 AM EDT [place] ([facility]) Christen Whitten, NET MAKING SUPERVISOR-R: [address] , [place] [address], Ph. Attender: Christen Whitten [facility] Medical 11/12/2020 12:00:00 AM EDT [place] ([facility]) Christen Whitten, NET MAKING SUPERVISOR-R: [address] , [place] [address], Ph. Attender: Christen Whitten [facility] Medical 11/12/2020 12:00:00 AM EDT [facility]) Christen Martineznikkocarmel, NET MAKING SUPERVISOR-R: [address] [place] [address], Ph. Attender: Chrsiten Whitten [facility] Medical 11/12/2020 12:00:00 AM EDT [place] ([facility]) Christen Whitten, NET MAKING SUPERVISOR-R: [address] [place] [address], Ph. Attender: Christen Whitten [facility] Medical 11/12/2020 12:00:00 AM EDT [place] ([facility]) Christen Ronnycarmel, NET MAKING SUPERVISOR-R: [address] [place] [address], Ph. Attender: Christen Whitten [facility] Medical 11/12/2020 12:00:00 AM EDT [place] ([facility]) Christen Maria Dolores, NET MAKING SUPERVISOR-R: [address] , [place] [address], Ph. Attender: Christen Whitten [facility] Medical 11/12/2020 12:00:00 AM EDT [place] ([facility]) Christen Whitten, NET MAKING SUPERVISOR-R: [address] [place] [address], Ph. Attender: Christen Whitten [facility] Medical 11/12/2020 12:00:00 AM EDT [place] ([facility]) Christen Whitten, NET MAKING SUPERVISOR-R: [address] [place] [address], Ph. Attender: Christen Whitten [facility] Medical 11/12/2020 12:00:00 AM EDT [place] ([facility]) Christen Whitten, NET MAKING SUPERVISOR-R: [address] [place] [address], Ph. Attender: Christen Whitten [facility] Medical 11/12/2020 12:00:00 AM EDT [place] ([facility]) Christen Whitten, NET MAKING SUPERVISOR-R: [address], [place] [address], Ph. Attender: Christen Whitten [facility] Medical 11/04/2020 12:00:00 AM EDT [place] ([facility]) Christen Whitten, NET MAKING SUPERVISOR-R: [address], [address], [place] [address], Ph. Attender: Christen Whitten [facility] Medical 11/04/2020 12:00:00 AM EDT [place] ([facility]) Christen Whitten, NET MAKING SUPERVISOR-R: [address], [address], [place] [address], Ph. Attender: Christen Whitten [facility] Medical 11/04/2020 12:00:00 AM EDT [place] ([facility]) Christen Whitten, NET MAKING SUPERVISOR-R: [address], [address], [place] [address], Ph. Attender: Christen Whitten [facility] Medical 11/04/2020 12:00:00 AM EDT [place] ([facility]) Christen Whitten, NET MAKING SUPERVISOR-R: [address], [place] [address], Ph. Attender: Christen Whitten [facility] Medical 11/04/2020 12:00:00 AM EDT [place] ([facility]) Christen Whitten, NET MAKING SUPERVISOR-R: [address], [place] [address], Ph. Attender: Christen Whitten [facility] Medical 11/04/2020 12:00:00 AM EDT [place] ([facility]) Christen Whitten, NET MAKING SUPERVISOR-R: [address], [place] [address], Ph. Attender: Christen Whitten [facility] Medical 11/04/2020 12:00:00 AM EDT [place] ([facility]) Christen Whitten, NET MAKING SUPERVISOR-R: [address], [place] [address], Ph. Attender: Christen Whitten [facility] Medical 11/04/2020 12:00:00 AM EDT [place] ([facility]) Christen Whitten, NET MAKING SUPERVISOR-R: [address], [place] [address], Ph. Attender: Christen Whitten [facility] Medical 11/04/2020 12:00:00 AM EDT [place] ([facility]) Christen Whitten, NET MAKING SUPERVISOR-R: [address], [address], [place] [address], Ph. Attender: Christen Whitten [facility] Medical 11/04/2020 12:00:00 AM EDT [place] ([facility]) Christen Whitten, NET MAKING SUPERVISOR-R: [address], [place] [address], Ph. Attender: Christen Whitten [facility] Medical 11/04/2020 12:00:00 AM EDT [place] ([facility]) Christen Whitten, NET MAKING SUPERVISOR-R: [address], [address], [place] [address], Ph. Attender: Christen Whitten [facility] Medical 11/04/2020 12:00:00 AM EDT [place] ([facility]) Christen Whitten, NET MAKING SUPERVISOR-R: [address], [address], [place] [address], Ph. Attender: Christen Whitten [facility] Medical 11/04/2020 12:00:00 AM EDT [place] ([facility]) Christen Whitten, NET MAKING SUPERVISOR-R: [address], [place] [address], Ph. Attender: Christen Whitten [facility] Medical 11/04/2020 12:00:00 AM EDT [place] ([facility]) Christen Whitten, NET MAKING SUPERVISOR-R: [address], [address], [place] [address], Ph. Attender: Christen Whitten [facility] Medical 10/20/2020 12:00:00 AM EST [place] ([facility]) Christen Whitten, NET MAKING SUPERVISOR-R: [address], [address], [place] [address], Ph. Attender: Christen Whitten [facility] Medical 10/20/2020 12:00:00 AM EST [place] ([facility]) Christen Whitten, NET MAKING SUPERVISOR-R: [address], [address], [place] [address], Ph. Attender: Christen Whitten [facility] Medical 10/20/2020 12:00:00 AM EST [place] ([facility]) Christen Whitten, NET MAKING SUPERVISOR-R: [address], [address], [place] [address], Ph. Attender: Christen Whitten [facility] Medical 10/20/2020 12:00:00 AM EST [place] ([facility]) Christen Whitten, NET MAKING SUPERVISOR-R: [address], [address], [place] [address], Ph. Attender: Christen Whitten [facility] Medical 10/20/2020 12:00:00 AM EST [place] ([facility]) Christen Whitten, NET MAKING SUPERVISOR-R: [address], [address], [place] [address], Ph. Attender: Christen Whitten [facility] Medical 10/20/2020 12:00:00 AM EST [place] ([facility]) Christen Whitten, NET MAKING SUPERVISOR-R: [address], [address], [place] [address], Ph. Attender: Christen Whitten [facility] Medical 10/20/2020 12:00:00 AM EST [place] ([facility]) Christen Whitten, NET MAKING SUPERVISOR-R: [address], [address], [place] [address], Ph. Attender: Christen Whitten [facility] Medical 10/20/2020 12:00:00 AM EST [place] ([facility]) Christen Whitten, NET MAKING SUPERVISOR-R: [address], [address], [place] [address], Ph. Attender: Christen Whitten [facility] Medical 10/20/2020 12:00:00 AM EST [place] ([facility]) Christen Whitten, NET MAKING SUPERVISOR-R: [address], [place] [address], Ph. Attender: Christen Whitten [facility] Medical 10/20/2020 12:00:00 AM EST [place] ([facility]) Christen Whitten, NET MAKING SUPERVISOR-R: [address], [place] [address], Ph. Attender: Christen Whitten [facility] Medical 10/20/2020 12:00:00 AM EST [place] ([facility]) Christen Whitten, NET MAKING SUPERVISOR-R: [address], [place] [address], Ph. Attender: Christen Whitten [facility] Medical 10/20/2020 12:00:00 AM EST [place] ([facility]) Christen Whitten, NET MAKING SUPERVISOR-R: [address], [place] [address], Ph. Attender: Christen Whitten [facility] Medical 10/20/2020 12:00:00 AM EST [place] ([facility]) Christen Whitten, NET MAKING SUPERVISOR-R: [address], [place] [address], Ph. Attender: Christen Whitten [facility] Medical 10/20/2020 12:00:00 AM EST [place] ([facility]) Christen Whitten, NET MAKING SUPERVISOR-R: [address], [place] [address], Ph. Attender: Christen Whitten [facility] Medical 10/20/2020 12:00:00 AM EST [place] ([facility]) Christen Whitten, NET MAKING SUPERVISOR-R: [address], [place] [address], Ph. Attender: Christen Whitten [facility] Medical 10/20/2020 12:00:00 AM EST [place] ([facility]) Christen Whitten, NET MAKING SUPERVISOR-R: [address], [place] [address], Ph. Attender: Christen Whitten [facility] Medical 10/20/2020 12:00:00 AM EST [place] ([facility]) Christen Whitten, NET MAKING SUPERVISOR-R: [address] [place] [address], Ph. Attender: Christen Whitten [facility] Medical 10/08/2020 12:00:00 AM EST [place] ([facility]) IAM Woo-BC: [address] [place] [address], Ph. Attender: Robyn [facility] Medical 10/08/2020 12:00:00 AM EST [place] ([facility]) Christen Whitten, NET MAKING SUPERVISOR-R: [address] [place] [address], Ph. Attender: Christen Whitten [facility] Medical 10/08/2020 12:00:00 AM EST [place] ([facility]) Robyn Medina [facility]: [address], [place] [address], Ph. Attender: Robyn Medina [facility] Medical 10/08/2020 12:00:00 AM EST [place] ([facility]) Christen Maria Dolores, NET MAKING SUPERVISOR-R: [address] , [place] [address], Ph. Attender: Christen Whitten [facility] 10/08/2020 12:00:00 AM EST [place] ([facility]) [facility] [address], [place] [address], Ph. Attender: Robyn Medina [facility] Medical 10/08/2020 12:00:00 AM EST [place] ([facility]) Christen Maria Dolores, NET MAKING SUPERVISOR-R: [address] [place] [address], Ph. Attender: Christen Whitten [facility] Medical 10/08/2020 12:00:00 AM EST [place] ([facility]) Robyn Medina [facility]: [address], [place] [address], Ph. Attender: Robyn Medina [facility] Medical 10/08/2020 12:00:00 AM EST [place] ([facility]) Christen Maria Dolores, NET MAKING SUPERVISOR-R: [address] [place] [address], Ph. Attender: Christen Whitten [facility] Medical 10/08/2020 12:00:00 AM EST [place] ([facility]) Robyn Medina [facility]: [address] [place] [address], Ph. Attender: Robyn Medina [facility] Medical 10/08/2020 12:00:00 AM EST [place] ([facility]) Christen Whitten, NET MAKING SUPERVISOR-R: [address] , [place] [address], Ph. Attender: Christen Whitten [facility] 10/08/2020 12:00:00 AM EST [place] ([facility]) Robyn Medina [facility]: [address], [place] [address], Ph. Attender: Robyn Median [facility] Medical 10/08/2020 12:00:00 AM EST [place] ([facility]) Christen Whitten, NET MAKING SUPERVISOR-R: [address] [place] [address], Ph. Attender: Christen Whitten [facility] Medical 10/08/2020 12:00:00 AM EST [place] ([facility]) [facility] [address] [place] [address], Ph. Attender: Robyn Medina [facility] Medical 10/08/2020 12:00:00 AM EST [place] ([facility]) Christen Whitten, NET MAKING SUPERVISOR-R: [address] [place] [address], Ph. Attender: Christen Whitten [facility] Medical 10/08/2020 12:00:00 AM EST [place] ([facility]) Robyn Medina [facility]: [address], [place] [address], Ph. Attender: Robyn Medina [facility] Medical 10/08/2020 12:00:00 AM EST [place] ([facility]) Christen Whitten, NET MAKING SUPERVISOR-R: [address] [place] [address], Ph. Attender: Christen Whitten [facility] Medical 10/08/2020 12:00:00 AM EST [place] ([facility]) Robyn Medina [facility]: [address] [place] [address], Ph. Attender: Robyn Medina [facility] Medical 10/08/2020 12:00:00 AM EST [place] ([facility]) Christen Whitten, NET MAKING SUPERVISOR-R: [address] [place] [address], Ph. Attender: Christen Whitten [facility] Medical 10/08/2020 12:00:00 AM EST [place] ([facility]) Robyn Medina [facility]: [address] [place] [address], Ph. Attender: Robyn Medina [facility] Medical 10/08/2020 12:00:00 AM EST [place] ([facility]) Christen Whitten, NET MAKING SUPERVISOR-R: [address] [place] [address], Ph. Attender: Christen Whitten [facility] Medical 10/08/2020 12:00:00 AM EST [place] ([facility]) Robyn Medina [facility]: [address], [place] [address], Ph. Attender: Robyn Medina [facility] Medical 10/08/2020 12:00:00 AM EST [place] ([facility]) Christen Whitten, NET MAKING SUPERVISOR-R: [address] [place] [address], Ph. Attender: Christen Whitten [facility] Medical 10/08/2020 12:00:00 AM EST [place] ([facility]) Robyn Medina [facility]: [address], [place] [address], Ph. Attender: Robyn Medina [facility] Medical 10/08/2020 12:00:00 AM EST [place] ([facility]) Christen Whitten, NET MAKING SUPERVISOR-R: [address] [place] [address], Ph. Attender: Christen Whitten [facility] Medical 10/08/2020 12:00:00 AM EST [place] ([facility]) Robyn Medina [facility]: [address], [place] [address], Ph. Attender: Robyn Medina [facility] Medical 10/08/2020 12:00:00 AM EST [place] ([facility]) Christen Whitten, NET MAKING SUPERVISOR-R: [address] , [place] [address], Ph. Attender: Christen Whitten [facility] Medical 10/08/2020 12:00:00 AM EST [place] ([facility]) Christen Whitten, NET MAKING SUPERVISOR-R: [address] , [place] [address], Ph. Attender: Christen Whitten [facility] Medical 10/08/2020 12:00:00 AM EST [place] ([facility]) Robyn Medina [facility]: [address], [place] [address], Ph. Attender: Robyn Medina [facility] Medical 10/08/2020 12:00:00 AM EST [place] ([facility]) Christen Whitten, NET MAKING SUPERVISOR-R: [address] [place] [address], Ph. Attender: Christen Whitten [facility] Medical 10/08/2020 12:00:00 AM EST [place] ([facility]) DARRYN Woo: [address], [place] [address], Ph. Attender: Robyn Medina [facility] Medical 10/08/2020 12:00:00 AM EST [place] ([facility]) Christen Whitten, NET MAKING SUPERVISOR-R: [address] , [place] [address], Ph. Attender: Christen Whitten [facility] Medical 10/08/2020 12:00:00 AM EST [place] ([facility]) DARRYN Woo: [address], [place] [address], Ph. Attender: Robyn Medina [facility] Medical 10/08/2020 12:00:00 AM EST [place] ([facility]) Christen Whitten, NET MAKING SUPERVISOR-R: [address] [place] [address], Ph. Attender: Christen Whitten [facility] Medical 10/08/2020 12:00:00 AM EST [place] ([facility]) [facility] [address] [place] [address], Ph. Attender: Robyn Medina [facility] Medical 10/08/2020 12:00:00 AM EST [place] ([facility]) Christen Burchhiginio NET MAKING SUPERVISOR-R: [address] [place] [address], Ph. Attender: Christen Burchhiginio [facility] Medical 10/08/2020 12:00:00 AM EST [place] ([facility]) Robyn Medina [facility]: [address] [place] [address], Ph. Attender: Robyn Medina [facility] Medical 10/08/2020 12:00:00 AM EST [place] ([facility]) Luc Walker MD: [address] [place] [address], Ph. Attender: Luc Walker MD [facility] Medical 09/25/2020 12:00:00 AM EST [place] ([facility]) Luc Walker MD: [address] [place] [address], Ph. Attender: Luc Walker MD [facility] Medical 09/25/2020 12:00:00 AM EST [place] ([facility]) Luc Walker MD: [address] [place] [address], Ph. Attender: Luc Walker MD [facility] Medical 09/25/2020 12:00:00 AM EST [place] ([facility]) Luc Walker MD: [address] [place] [address], Ph. Attender: Luc Walker MD [facility] Medical 09/25/2020 12:00:00 AM EST [place] ([facility]) Luc Walker MD: [address] [place] [address], Ph. Attender: Luc Walker MD [facility] Medical 09/25/2020 12:00:00 AM EST [place] ([facility]) uLc Walker MD: [address] [place] [address], Ph. Attender: Luc Walker MD [facility] Medical 09/25/2020 12:00:00 AM EST [place] ([facility]) Luc Walker MD: [address] [place] [address], Ph. Attender: Luc Walker MD [facility] Medical 09/25/2020 12:00:00 AM EST [place] ([facility]) Luc Walker MD: [address] [place] [address], Ph. Attender: Luc Walker MD [facility] Medical 09/25/2020 12:00:00 AM EST [place] ([facility]) Luc Walker MD: [address] [place] [address], Ph. Attender: Luc Walker MD [facility] Medical 09/25/2020 12:00:00 AM EST [place] ([facility]) Luc Walker MD: [address] [place] [address], Ph. Attender: Luc Walker MD [facility] Medical 09/25/2020 12:00:00 AM EST [place] ([facility]) Luc Walker MD: [address] [place] [address], Ph. Attender: Luc Walker [facility] [facility] 09/25/2020 12:00:00 AM EST JONATAN ([facility]) Luc Walker MD: [address] [place] [address], Ph. Attender: Luc Walker MD [facility] Medical 09/25/2020 12:00:00 AM EST JONATAN ([facility]) Luc Walker MD: [address] [place] [address], Ph. Attender: Luc Walker MD [facility] Medical 09/25/2020 12:00:00 AM EST JONATAN ([facility]) Luc Walkre MD: [address] [place] [address], Ph. Attender: Luc Walker MD [facility] Medical 09/25/2020 12:00:00 AM EST JONATAN ([facility]) Luc Walker MD: [address] [place] [address], Ph. Attender: Luc Walker MD [facility] Medical 09/25/2020 12:00:00 AM EST JONATAN ([facility]) Luc Walker MD: [address] [place] [address], Ph. Attender: Luc Walker MD [facility] Medical 09/25/2020 12:00:00 AM EST JONATAN ([facility]) Luc Walker MD: [address] [place] [address], Ph. Attender: Luc Walker MD [facility] Medical 09/25/2020 12:00:00 AM EST JONATAN ([facility]) Luc Walker MD: [address] [place] [address], Ph. Attender: Luc Walker MD [facility] Medical 09/25/2020 12:00:00 AM EST JONATAN ([facility]) Luc Walker MD: [address] [place] [address], Ph. Attender: Luc Walker MD [facility] Medical 09/25/2020 12:00:00 AM EST JONATAN ([facility]) Christen Whitten, NET MAKING SUPERVISOR-R: [address], [place] [address], Ph. Attender: Christen Whitten [facility] Medical 09/23/2020 12:00:00 AM EST JONATAN ([facility]) Christen Whitten, NET MAKING SUPERVISOR-R: [address], [place] [address], Ph. Attender: Christen Whitten [facility] Medical 09/23/2020 12:00:00 AM EST JONATAN ([facility]) Christen Whitten, NET MAKING SUPERVISOR-R: [address], [place] [address], Ph. Attender: Christen Whitten [facility] Medical 09/23/2020 12:00:00 AM EST JONATAN ([facility]) Christen Whitten, NET MAKING SUPERVISOR-R: [address], [place] [address], Ph. Attender: Chirsten Whitten [facility] Medical 09/23/2020 12:00:00 AM EST JONATAN ([facility]) Christen Whitten, NET MAKING SUPERVISOR-R: [address], [place] [address], Ph. Attender: Christen Whitten [facility] Medical 09/23/2020 12:00:00 AM EST JONATAN ([facility]) Christen Whitten, NET MAKING SUPERVISOR-R: [address], [place] [address], Ph. Attender: Christen Whitten [facility] Medical 09/23/2020 12:00:00 AM EST JONATAN ([facility]) Christen Whitten, NET MAKING SUPERVISOR-R: [address], [place] [address], Ph. Attender: Christen Whitten [facility] Medical 09/23/2020 12:00:00 AM EST JONATAN ([facility]) Christen Whitten, NET MAKING SUPERVISOR-R: [address], [place] [address], Ph. Attender: Christen Whitten [facility] Medical 09/23/2020 12:00:00 AM EST JONATAN ([facility]) Christen Whitten, NET MAKING SUPERVISOR-R: [address], [place] [address], Ph. Attender: Christen Whitten [facility] Medical 09/23/2020 12:00:00 AM EST JONATAN ([facility]) Christen Whitten, NET MAKING SUPERVISOR-R: [address], [place] [address], Ph. Attender: Christen Whitten [facility] Medical 09/23/2020 12:00:00 AM EST JONATAN ([facility]) Christen Whitten, NET MAKING SUPERVISOR-R: [address], [place] [address], Ph. Attender: Christen Whitten [facility] Medical 09/23/2020 12:00:00 AM EST JONATAN ([facility]) Christen Whitten, NET MAKING SUPERVISOR-R: [address], [place] [address], Ph. Attender: Christen Whitten [facility] Medical 09/23/2020 12:00:00 AM EST JONATAN ([facility]) Christen Whitten, NET MAKING SUPERVISOR-R: [address], [place] [address], Ph. Attender: Christen Whitten [facility] Medical 09/23/2020 12:00:00 AM EST JONATAN ([facility]) Christen Whitten, NET MAKING SUPERVISOR-R: [address], [place] [address], Ph. Attender: Christen Whitten [facility] Medical 09/23/2020 12:00:00 AM EST JONATAN ([facility]) Christen Whitten, NET MAKING SUPERVISOR-R: [address], [place] [address], Ph. Attender: Christen Whitten [facility] Medical 09/23/2020 12:00:00 AM EST JONATAN ([facility]) Christen Whitten, NET MAKING SUPERVISOR-R: [address], [place] [address], Ph. Attender: Christen Whitten [facility] Medical 09/23/2020 12:00:00 AM EST JONATAN ([facility]) Christen Whitten, NET MAKING SUPERVISOR-R: [address], [place] [address], Ph. Attender: Christen Whitten [facility] Medical 09/23/2020 12:00:00 AM EST JONATAN ([facility]) Christen Whitten, NET MAKING SUPERVISOR-R: [address], [place] [address], Ph. Attender: Christen Whitten [facility] Medical 09/23/2020 12:00:00 AM EST JONATAN ([facility]) Christen Whitten, NET MAKING SUPERVISOR-R: [address], [place] [address], Ph. Attender: Christen Whitten [facility] Medical 09/23/2020 12:00:00 AM EST JONATAN ([facility]) Christen Whitten, NET MAKING SUPERVISOR-R: [address], [place] [address], Ph. Attender: Christen Whitten [facility] Medical 09/23/2020 12:00:00 AM EST JONATAN ([facility]) Christen Whitten, NET MAKING SUPERVISOR-R: [address], [place] [address], Ph. Attender: Christen Whitten [facility] Medical 09/15/2020 12:00:00 AM EST JONATAN ([facility]) Christen Whitten, NET MAKING SUPERVISOR-R: [address], [place] [address], Ph. Attender: Christen Whitten [facility] Medical 09/15/2020 12:00:00 AM EST JONATAN ([facility]) Christen Whitten, NET MAKING SUPERVISOR-R: [address], [place] [address], Ph. Attender: Christen Whitten [facility] Medical 09/15/2020 12:00:00 AM EST JONATAN ([facility]) Christen Whitten, NET MAKING SUPERVISOR-R: [address], [place] [address], Ph. Attender: Christen Whitten [facility] Medical 09/15/2020 12:00:00 AM EST JONATAN ([facility]) Christen Whitten, NET MAKING SUPERVISOR-R: [address], [place] [address], Ph. Attender: Christen Whitten [facility] Medical 09/15/2020 12:00:00 AM EST JONATAN ([facility]) Christen Whitten, NET MAKING SUPERVISOR-R: [address], [place] [address], Ph. Attender: Christen Whitten [facility] Medical 09/15/2020 12:00:00 AM EST JONATAN ([facility]) Christen Whitten, NET MAKING SUPERVISOR-R: [address], [place] [address], Ph. Attender: Christen Whitten [facility] Medical 09/15/2020 12:00:00 AM EST JONATAN ([facility]) Christen Whitten, NET MAKING SUPERVISOR-R: [address], [place] [address], Ph. Attender: Christen Whitten [facility] Medical 09/15/2020 12:00:00 AM EST JONATAN ([facility]) Christen Whitten, NET MAKING SUPERVISOR-R: [address], [place] [address], Ph. Attender: Christen Whitten [facility] Medical 09/15/2020 12:00:00 AM EST JONATAN ([facility]) Christen Whitten, NET MAKING SUPERVISOR-R: [address], [place] [address], Ph. Attender: Christen Whitten [facility] Medical 09/15/2020 12:00:00 AM EST JONATAN ([facility]) Christen Whitten, NET MAKING SUPERVISOR-R: [address], [place] [address], Ph. Attender: Christen Whitten [facility] Medical 09/15/2020 12:00:00 AM EST JONATAN ([facility]) Christen Whitten, NET MAKING SUPERVISOR-R: [address], [place] [address], Ph. Attender: Christen Whitten [facility] Medical 09/15/2020 12:00:00 AM EST JONATAN ([facility]) Christen Whitten, NET MAKING SUPERVISOR-R: [address], [place] [address], Ph. Attender: Christen Whitten [facility] Medical 09/15/2020 12:00:00 AM EST JONATAN ([facility]) Christen Whitten, NET MAKING SUPERVISOR-R: [address], [place] [address], Ph. Attender: Christen Whitten [facility] Medical 09/15/2020 12:00:00 AM EST JONATAN ([facility]) Christen Whitten, NET MAKING SUPERVISOR-R: [address], [place] [address], Ph. Attender: Christen Whitten [facility] Medical 09/15/2020 12:00:00 AM EST JONATAN ([facility]) Christen Whitten, NET MAKING SUPERVISOR-R: [address], [place] [address], Ph. Attender: Christen Whitten [facility] Medical 09/15/2020 12:00:00 AM EST JONATAN ([facility]) Christen Whitten, NET MAKING SUPERVISOR-R: [address], [place] [address], Ph. Attender: Christen Whitten [facility] Medical 09/15/2020 12:00:00 AM EST JONATAN ([facility]) Christen Whitten, NET MAKING SUPERVISOR-R: [address], [place] [address], Ph. Attender: Christen Whitten [facility] Medical 09/15/2020 12:00:00 AM EST JONATAN ([facility]) Christen Whitten, NET MAKING SUPERVISOR-R: [address], [place] [address], Ph. Attender: Christen Whitten [facility] Medical 09/15/2020 12:00:00 AM EST JONATAN ([facility]) Christen Whitten, NET MAKING SUPERVISOR-R: [address], [place] [address], Ph. Attender: Christen Whitten [facility] Medical 09/15/2020 12:00:00 AM EST JONATAN ([facility]) Christen Whitten, NET MAKING SUPERVISOR-R: [address], [place] [address], Ph. Attender: Chritsen Whitten [facility] Medical 09/15/2020 12:00:00 AM EST JONATAN ([facility]) Christen Whitten, NET MAKING SUPERVISOR-R: [address], [place] [address], Ph. Attender: Christen Whitten [facility] Medical 09/09/2020 12:00:00 AM EST JONATAN ([facility]) Christen Whitten, NET MAKING SUPERVISOR-R: [address], [place] [address], Ph. Attender: Christen Whitten [facility] Medical 09/09/2020 12:00:00 AM EST JONATAN ([facility]) Christen Whitten, NET MAKING SUPERVISOR-R: [address], [place] [address], Ph. Attender: Christen Whitten [facility] Medical 09/09/2020 12:00:00 AM EST JONATAN ([facility]) Christen Whitten, NET MAKING SUPERVISOR-R: [address], [place] [address], Ph. Attender: Christen Whitten [facility] Medical 09/09/2020 12:00:00 AM EST JONATAN ([facility]) Christen Whitten, NET MAKING SUPERVISOR-R: [address], [place] [address], Ph. Attender: Christen Whitten [facility] Medical 09/09/2020 12:00:00 AM EST JONATAN ([facility]) Christen Whitten, NET MAKING SUPERVISOR-R: [address], [place] [address], Ph. Attender: Christen Whitten [facility] Medical 09/09/2020 12:00:00 AM EST JONATAN ([facility]) Christen Whitten, NET MAKING SUPERVISOR-R: [address], [place] [address], Ph. Attender: Christen Whitten [facility] Medical 09/09/2020 12:00:00 AM EST JONATAN ([facility]) Christen Whitten, NET MAKING SUPERVISOR-R: [address], [place] [address], Ph. Attender: Christen Whitten [facility] Medical 09/09/2020 12:00:00 AM EST JONATAN ([facility]) Christen Whitten, NET MAKING SUPERVISOR-R: [address], [place] [address], Ph. Attender: Christen Whitten [facility] Medical 09/09/2020 12:00:00 AM EST JONATAN ([facility]) Christen Whitten, NET MAKING SUPERVISOR-R: [address], [place] [address], Ph. Attender: Christen Whitten [facility] Medical 09/09/2020 12:00:00 AM EST JONATAN ([facility]) Christen Whitten, NET MAKING SUPERVISOR-R: [address], [place] [address], Ph. Attender: Christen Whitten [facility] Medical 09/09/2020 12:00:00 AM EST JONATAN ([facility]) Christen Whitten, NET MAKING SUPERVISOR-R: [address], [place] [address], Ph. Attender: Christen Whitten [facility] Medical 09/09/2020 12:00:00 AM EST JONATAN ([facility]) Christen Whitten, NET MAKING SUPERVISOR-R: [address], [place] [address], Ph. Attender: Christen Whitten [facility] Medical 09/09/2020 12:00:00 AM EST JONATAN ([facility]) Christen Whitten, NET MAKING SUPERVISOR-R: [address], [place] [address], Ph. Attender: Christen Whitten [facility] Medical 09/09/2020 12:00:00 AM EST JONATAN ([facility]) Christen Whitten, NET MAKING SUPERVISOR-R: [address], [place] [address], Ph. Attender: Christen Whitten [facility] Medical 09/09/2020 12:00:00 AM EST JONATAN ([facility]) Christen Whitten, NET MAKING SUPERVISOR-R: [address], [place] [address], Ph. Attender: Christen Whitten [facility] Medical 09/09/2020 12:00:00 AM EST JONATAN ([facility]) Christen Whitten, NET MAKING SUPERVISOR-R: [address], [place] [address], Ph. Attender: Christen Whitten [facility] Medical 09/09/2020 12:00:00 AM EST JONATAN ([facility]) Christen Whitten, NET MAKING SUPERVISOR-R: [address], [place] [address], Ph. Attender: Christen Whitten [facility] Medical 09/09/2020 12:00:00 AM EST JONATAN ([facility]) Christen Whitten, NET MAKING SUPERVISOR-R: [address], [place] [address], Ph. Attender: Christen Whitten [facility] Medical 09/09/2020 12:00:00 AM EST JONATAN ([facility]) Christen Whitten, NET MAKING SUPERVISOR-R: [address], [place] [address], Ph. Attender: Christen Whitetn [facility] Medical 09/09/2020 12:00:00 AM EST JONATAN ([facility]) Christen Whitten, NET MAKING SUPERVISOR-R: [address], [place] [address], Ph. Attender: Christen Whitten [facility] Medical 09/09/2020 12:00:00 AM EST JONATAN ([facility]) Christen Whitten, NET MAKING SUPERVISOR-R: [address], [place] [address], Ph. Attender: Christen Whitten [facility] Medical 09/09/2020 12:00:00 AM EST JONATAN ([facility]) Christen Whitten, NET MAKING SUPERVISOR-R: [address], [place] [address], Ph. Attender: Christen Whitten [facility] Medical 09/02/2020 12:00:00 AM EST JONATAN ([facility]) Christen Whitten, NET MAKING SUPERVISOR-R: [address], [place] [address], Ph. Attender: Christen Whitten [facility] Medical 09/02/2020 12:00:00 AM EST JONATAN ([facility]) Christen Whitten, NET MAKING SUPERVISOR-R: [address], [place] [address], Ph. Attender: Christen Whitten [facility] Medical 09/02/2020 12:00:00 AM EST JONATAN ([facility]) Christen Whitten, NET MAKING SUPERVISOR-R: [address], [place] [address], Ph. Attender: Christen Whitten [facility] Medical 09/02/2020 12:00:00 AM EST JONATAN ([facility]) Christen Whitten, NET MAKING SUPERVISOR-R: [address], [place] [address], Ph. Attender: Christen Whitten [facility] Medical 09/02/2020 12:00:00 AM EST JONATAN ([facility]) Christen Whitten, NET MAKING SUPERVISOR-R: [address], [place] [address], Ph. Attender: Christen Whitten [facility] Medical 09/02/2020 12:00:00 AM EST JONATAN ([facility]) Christen Whitten, NET MAKING SUPERVISOR-R: [address], [place] [address], Ph. Attender: Christen Whitten [facility] Medical 09/02/2020 12:00:00 AM EST JONATAN ([facility]) Christen Whitten, NET MAKING SUPERVISOR-R: [address], [place] [address], Ph. Attender: Christen Whitten [facility] Medical 09/02/2020 12:00:00 AM EST JONATAN ([facility]) Christen Whitten, NET MAKING SUPERVISOR-R: [address], [place] [address], Ph. Attender: Christen Whitten [facility] Medical 09/02/2020 12:00:00 AM EST JONATAN ([facility]) Christen Whitten, NET MAKING SUPERVISOR-R: [address], [place] [address], Ph. Attender: Christen Whitten [facility] Medical 09/02/2020 12:00:00 AM EST JONATAN ([facility]) Christen Whitten, NET MAKING SUPERVISOR-R: [address], [place] [address], Ph. Attender: Christen Whitten [facility] Medical 09/02/2020 12:00:00 AM EST JONATAN ([facility]) Christen Whitten, NET MAKING SUPERVISOR-R: [address], [place] [address], Ph. Attender: Christen Whitten [facility] Medical 09/02/2020 12:00:00 AM EST JONATAN ([facility]) Christen Whitten, NET MAKING SUPERVISOR-R: [address], [place] [address], Ph. Attender: Christen Whitten [facility] Medical 09/02/2020 12:00:00 AM EST JONATAN ([facility]) Christen Whitten, NET MAKING SUPERVISOR-R: [address], [place] [address], Ph. Attender: Christen Whitten [facility] Medical 09/02/2020 12:00:00 AM EST JONATAN ([facility]) Christen Whitten, NET MAKING SUPERVISOR-R: [address], [place] [address], Ph. Attender: Christen Whitten [facility] Medical 09/02/2020 12:00:00 AM EST JONATAN ([facility]) Christen Whitten, NET MAKING SUPERVISOR-R: [address], [place] [address], Ph. Attender: Christen Whitten [facility] Medical 09/02/2020 12:00:00 AM EST JONATAN ([facility]) Christen Whitten, NET MAKING SUPERVISOR-R: [address], [place] [address], Ph. Attender: Christen Whitten [facility] Medical 09/02/2020 12:00:00 AM EST JONATAN ([facility]) Christen Whitten, NET MAKING SUPERVISOR-R: [address], [place] [address], Ph. Attender: Christen Whitten [facility] Medical 09/02/2020 12:00:00 AM EST JONATAN ([facility]) Christen Whitten, NET MAKING SUPERVISOR-R: [address], [place] [address], Ph. Attender: Christen Whitten [facility] Medical 09/02/2020 12:00:00 AM EST JONATAN ([facility]) Christen Whitten, NET MAKING SUPERVISOR-R: [address], [place] [address], Ph. Attender: Christen Whitten [facility] Medical 09/02/2020 12:00:00 AM EST JONATAN ([facility]) Christen Whitten, NET MAKING SUPERVISOR-R: [address], [place] [address], Ph. Attender: Christen Whitten [facility] Medical 09/02/2020 12:00:00 AM EST JONATAN ([facility]) Christen Whitten, NET MAKING SUPERVISOR-R: [address], [place] [address], Ph. Attender: Christen Whitten [facility] Medical 09/02/2020 12:00:00 AM EST JONATAN ([facility]) Christen Whitten, NET MAKING SUPERVISOR-R: [address], [place] [address], Ph. Attender: Christen Whitten [facility] Medical 09/02/2020 12:00:00 AM EST JONATAN ([facility]) Christen Whitten, NET MAKING SUPERVISOR-R: [address], [place] [address], Ph. Attender: Christen Whitten [facility] Medical 09/02/2020 12:00:00 AM EST JONATAN ([facility]) IAM Woo-BC: [address], [place] [address], Ph. Attender: Robyn [facility] Medical 08/12/2020 12:00:00 AM EST JONATAN ([facility]) Christen Whitten, NET MAKING SUPERVISOR-R: [address], [place] [address], Ph. Attender: Christen Whitten [facility] Medical 08/12/2020 12:00:00 AM EST JONATAN ([facility]) [facility]: [address], [place] [address], Ph. Attender: Robyn Medina [facility] Medical 08/12/2020 12:00:00 AM EST JONATAN ([facility]) Christen Whitten, NET MAKING SUPERVISOR-R: [address], [place] [address], Ph. Attender: Christen Whitten [facility] Medical 08/12/2020 12:00:00 AM EST JONATAN ([facility]) DARRYN Woo: [address], [place] [address], Ph. Attender: Robyn Medina [facility] Medical 08/12/2020 12:00:00 AM EST JONATAN ([facility]) Christen Whitten, NET MAKING SUPERVISOR-R: [address], [address], [place] [address], Ph. Attender: Christen Whitten [facility] Medical 08/12/2020 12:00:00 AM EST JONATAN ([facility]) DARRYN Woo: [address], [place] [address], Ph. Attender: Robyn Medina [facility] Medical 08/12/2020 12:00:00 AM EST JONATAN ([facility]) Christen Whitten, NET MAKING SUPERVISOR-R: [address], [address], [place] [address], Ph. Attender: Christen Whitten [facility] Medical 08/12/2020 12:00:00 AM EST JONATAN ([facility]) [facility] [address], [place] [address], Ph. Attender: Robyn Medina [facility] Medical 08/12/2020 12:00:00 AM EST JONATAN ([facility]) Christen Whitten, NET MAKING SUPERVISOR-R: [address], [address], [place] [address], Ph. Attender: Christen Whitten [facility] Medical 08/12/2020 12:00:00 AM EST JONATAN ([facility]) DARRYN Woo: [address], [place] [address], Ph. Attender: Robyn Medina [facility] Medical 08/12/2020 12:00:00 AM EST JONATAN ([facility]) Christen Whitten, NET MAKING SUPERVISOR-R: [address], [place] [address], Ph. Attender: Christen Whitten [facility] Medical 08/12/2020 12:00:00 AM EST JONATAN ([facility]) DARRYN Woo: [address], [place] [address], Ph. Attender: Robyn Medina [facility] Medical 08/12/2020 12:00:00 AM EST JONATAN ([facility]) Christen Whitten, NET MAKING SUPERVISOR-R: [address], [address], [place] [address], Ph. Attender: Christen Whitten [facility] Medical 08/12/2020 12:00:00 AM EST JONATAN ([facility]) Robyn Medina [facility]: [address], [place] [address], Ph. Attender: Robyn Medina [facility] Medical 08/12/2020 12:00:00 AM EST JONATAN ([facility]) Christen Whitten, NET MAKING SUPERVISOR-R: [address], [address], [place] [address], Ph. Attender: Christen Whitten [facility] Medical 08/12/2020 12:00:00 AM EST JONATAN ([facility]) DARRYN Woo: [address], [place] [address], Ph. Attender: Robyn Medina [facility] Medical 08/12/2020 12:00:00 AM EST JONATAN ([facility]) Christen Whitten, NET MAKING SUPERVISOR-R: [address], [address], [place] [address], Ph. Attender: Christen Whitten [facility] Medical 08/12/2020 12:00:00 AM EST JONATAN ([facility]) DARRYN WooBC: [address], [place] [address], Ph. Attender: Robyn Medina [facility] Medical 08/12/2020 12:00:00 AM EST JONATAN ([facility]) Christen Whitten, NET MAKING SUPERVISOR-R: [address], [address], [place] [address], Ph. Attender: Christen Whitten [facility] Medical 08/12/2020 12:00:00 AM EST JONATAN ([facility]) Robyn Medina [facility]: [address], [place] [address], Ph. Attender: Robyn Medina [facility] Medical 08/12/2020 12:00:00 AM EST JONATAN ([facility]) Christen Whitten, NET MAKING SUPERVISOR-R: [address], [address], [place] [address], Ph. Attender: Christen hWitten [facility] Medical 08/12/2020 12:00:00 AM EST JONATAN ([facility]) [facility]: [address], [place] [address], Ph. Attender: Robyn Medina [facility] Medical 08/12/2020 12:00:00 AM EST JONATAN ([facility]) Christen Whitten, NET MAKING SUPERVISOR-R: [address], [address], [place] [address], Ph. Attender: Christen Whitten [facility] Medical 08/12/2020 12:00:00 AM EST JONATAN ([facility]) Robyn Medina [facility]: [address], [place] [address], Ph. Attender: Robyn Medina [facility] Medical 08/12/2020 12:00:00 AM EST JONATAN ([facility]) Christen Whitten, NET MAKING SUPERVISOR-R: [address], [address], [place] [address], Ph. Attender: Christen Ronnyalmazhiginio [facility] Medical 08/12/2020 12:00:00 AM EST JONATAN ([facility]) Robyn Medina [facility]: [address], [place] [address], Ph. Attender: Robyn Medina [facility] Medical 08/12/2020 12:00:00 AM EST JONATAN ([facility]) Christen Whitten, NET MAKING SUPERVISOR-R: [address], [address], [place] [address], Ph. Attender: Christen Ronnyalmazhiginio [facility] Medical 08/12/2020 12:00:00 AM EST JONATAN ([facility]) Robyn Medina [facility]: [address], [place] [address], Ph. Attender: Robyn Medina [facility] Medical 08/12/2020 12:00:00 AM EST JONATAN ([facility]) Christen Whitten, NET MAKING SUPERVISOR-R: [address], [address], [place] [address], Ph. Attender: Christen Ronnyalmazhiginio [facility] Medical 08/12/2020 12:00:00 AM EST JONATAN ([facility]) Robyn Medina [facility]: [address], [place] [address], Ph. Attender: Robyn Medina [facility] Medical 08/12/2020 12:00:00 AM EST JONATAN ([facility]) Christen Martinezantonio, NET MAKING SUPERVISOR-R: [address], [address], [place] [address], Ph. Attender: Christen Maria Dolores [facility] Medical 08/12/2020 12:00:00 AM EST JONATAN ([facility]) Robyn Medina [facility]: [address], [place] [address], Ph. Attender: Robyn Medina [facility] Medical 08/12/2020 12:00:00 AM EST JONATAN ([facility]) Christen Ronnyalmazhiginio, NET MAKING SUPERVISOR-R: [address], [address], [place] [address], Ph. Attender: Christen Whitten [facility] Medical 08/12/2020 12:00:00 AM EST JONATAN ([facility]) Robyn Medina [facility]: [address], [place] [address], Ph. Attender: Robyn Medina [facility] Medical 08/12/2020 12:00:00 AM EST JONATAN ([facility]) Christen Maria Dolores, NET MAKING SUPERVISOR-R: [address], [address], [place] [address], Ph. Attender: Christen Whitten [facility] Medical 08/12/2020 12:00:00 AM EST JONATAN ([facility]) [facility]: [address], [place] [address], Ph. Attender: Robyn Medina [facility] Medical 08/12/2020 12:00:00 AM EST JONATAN ([facility]) Christen Whitten, NET MAKING SUPERVISOR-R: [address], [address], [place] [address], Ph. Attender: Christen Whitten [facility] Medical 08/12/2020 12:00:00 AM EST JONATAN ([facility]) [facility]: [address], [place] [address], Ph. Attender: Robyn Medina [facility] Medical 08/12/2020 12:00:00 AM EST JONATAN ([facility]) Christen Whitten, NET MAKING SUPERVISOR-R: [address], [address], [place] [address], Ph. Attender: Christen Whitten [facility] Medical 08/12/2020 12:00:00 AM EST JONATAN ([facility]) [facility]: [address], [place] [address], Ph. Attender: Robyn Medina [facility] Medical 08/12/2020 12:00:00 AM EST JONATAN ([facility]) Christen Burchhiginio, NET MAKING SUPERVISOR-R: [address], [address], [place] [address], Ph. Attender: Christen Whitten [facility] Medical 08/12/2020 12:00:00 AM EST JONATAN ([facility]) Robyn Medina [facility]: [address], [place] [address], Ph. Attender: Robyn Medina [facility] Medical 08/12/2020 12:00:00 AM EST JONATAN ([facility]) Christen COLIN WhittenW-R: [address], [address], [place] [address], Ph. Attender: Christen Ronnyalmazhiginio [facility] Medical 08/12/2020 12:00:00 AM EST JONATAN ([facility]) [facility]: [address], [place] [address], Ph. Attender: Robyn Medina [facility] Medical 08/12/2020 12:00:00 AM EST JONATAN ([facility]) Christen COLIN WhittenW-R: [address], [address], [place] [address], Ph. Attender: Christen Maria Dolores [facility] Medical 08/12/2020 12:00:00 AM EST JONATAN ([facility]) [facility]: [address], [place] [address], Ph. Attender: Robyn Medina [facility] Medical 08/12/2020 12:00:00 AM EST JONATAN ([facility]) Christen Whitten, NET MAKING SUPERVISOR-R: [address], [address], [place] [address], Ph. Attender: Christen Whitten [facility] Medical 08/12/2020 12:00:00 AM EST JONATAN ([facility]) Robyn Medina, [facility]: [address], [place] [address], Ph. Attender: Robyn Medina [facility] Medical 08/12/2020 12:00:00 AM EST JONATAN ([facility]) Christen Whitten, NET MAKING SUPERVISOR-R: [address], [address], [place] [address], Ph. Attender: Christen Whitten [facility] Medical 08/12/2020 12:00:00 AM EST JONATAN ([facility]) Chrsiten Whitten, NET MAKING SUPERVISOR-R: [address], [address], [place] [address], Ph. Attender: Christen Whitten [facility] Medical 08/04/2020 12:00:00 AM EST JONATAN ([facility]) Christen Whitten, NET MAKING SUPERVISOR-R: [address], [address], [place] [address], Ph. Attender: Christen Whitten [facility] Medical 08/04/2020 12:00:00 AM EST JONATAN ([facility]) Christen Whitten, NET MAKING SUPERVISOR-R: [address], [address], [place] [address], Ph. Attender: Christen Whitten [facility] Medical 08/04/2020 12:00:00 AM EST JONATAN ([facility]) Christen Whitten, NET MAKING SUPERVISOR-R: [address], [address], [place] [address], Ph. Attender: Christen Whitten [facility] Medical 08/04/2020 12:00:00 AM EST JONATAN ([facility]) Christen Whitten, NET MAKING SUPERVISOR-R: [address], [address], [place] [address], Ph. Attender: Christen Whitten [facility] Medical 08/04/2020 12:00:00 AM EST JONATAN ([facility]) Christen Whitten, NET MAKING SUPERVISOR-R: [address], [address], [place] [address], Ph. Attender: Christen Whitten [facility] Medical 08/04/2020 12:00:00 AM EST JONATAN ([facility]) Christen Whitten, NET MAKING SUPERVISOR-R: [address], [address], [place] [address], Ph. Attender: Christen Whitten [facility] Medical 08/04/2020 12:00:00 AM EST JONATAN ([facility]) Christen Whitten, NET MAKING SUPERVISOR-R: [address], [address], [place] [address], Ph. Attender: Christen Whitten [facility] Medical 08/04/2020 12:00:00 AM EST JONATAN ([facility]) Christen Whitten, NET MAKING SUPERVISOR-R: [address], [place] [address], Ph. Attender: Christen Whitten [facility] Medical 08/04/2020 12:00:00 AM EST JONATAN ([facility]) Christen Whitten, NET MAKING SUPERVISOR-R: [address], [place] [address], Ph. Attender: Christen Whitten [facility] Medical 08/04/2020 12:00:00 AM EST JONATAN ([facility]) Christen Whitten, NET MAKING SUPERVISOR-R: [address], [place] [address], Ph. Attender: Christen Whitten [facility] Medical 08/04/2020 12:00:00 AM EST JONATAN ([facility]) Christen Whitten, NET MAKING SUPERVISOR-R: [address], [place] [address], Ph. Attender: Christen Whitten [facility] Medical 08/04/2020 12:00:00 AM EST JONATAN ([facility]) Christen Whitten, NET MAKING SUPERVISOR-R: [address], [place] [address], Ph. Attender: Christen Whitten [facility] Medical 08/04/2020 12:00:00 AM EST JONATAN ([facility]) Christen Whitten, NET MAKING SUPERVISOR-R: [address], [place] [address], Ph. Attender: Christen Whitten [facility] Medical 08/04/2020 12:00:00 AM EST JONATAN ([facility]) Christen Whitten, NET MAKING SUPERVISOR-R: [address], [place] [address], Ph. Attender: Christen Whitten [facility] Medical 08/04/2020 12:00:00 AM EST JONATAN ([facility]) Christen Whitten, NET MAKING SUPERVISOR-R: [address], [place] [address], Ph. Attender: Christen Whitten [facility] Medical 08/04/2020 12:00:00 AM EST JONATAN ([facility]) Christen Whitten, NET MAKING SUPERVISOR-R: [address], [place] [address], Ph. Attender: Christen Whitten [facility] Medical 08/04/2020 12:00:00 AM EST JONATAN ([facility]) Christen Whitten, NET MAKING SUPERVISOR-R: [address], [place] [address], Ph. Attender: Christen Whitten [facility] Medical 08/04/2020 12:00:00 AM EST JONATAN ([facility]) Christen Whitten, NET MAKING SUPERVISOR-R: [address], [place] [address], Ph. Attender: Christen Whitten [facility] Medical 08/04/2020 12:00:00 AM EST JONATAN ([facility]) Christen Whitten, NET MAKING SUPERVISOR-R: [address], [place] [address], Ph. Attender: Christen Whitten [facility] Medical 08/04/2020 12:00:00 AM EST JONATAN ([facility]) Christen Whitten, NET MAKING SUPERVISOR-R: [address], [place] [address], Ph. Attender: Christen Whitten [facility] Medical 08/04/2020 12:00:00 AM EST JONATAN ([facility]) Christen Whitten, NET MAKING SUPERVISOR-R: [address], [place] [address], Ph. Attender: Christen Whitten [facility] Medical 08/04/2020 12:00:00 AM EST JONATAN ([facility]) Christen Whitten, NET MAKING SUPERVISOR-R: [address], [place] [address], Ph. Attender: Christen Whitten [facility] Medical 08/04/2020 12:00:00 AM EST JONATAN ([facility]) Christen Whitten, NET MAKING SUPERVISOR-R: [address], [place] [address], Ph. Attender: Christen Whitten [facility] Medical 08/04/2020 12:00:00 AM EST JONATAN ([facility]) Christen Whitten, NET MAKING SUPERVISOR-R: [address], [place] [address], Ph. Attender: Christen Whitten [facility] Medical 08/04/2020 12:00:00 AM EST JONATAN ([facility]) Christen Whitten, NET MAKING SUPERVISOR-R: [address], [place] [address], Ph. Attender: Christen Whitten [facility] Medical 08/04/2020 12:00:00 AM EST JONATAN ([facility]) Christen Whitten, NET MAKING SUPERVISOR-R: [address] [place] [address], Ph. Attender: Christen Whitten [facility] Medical 07/30/2020 12:00:00 AM EST JONATAN ([facility]) Christen Whitten, NET MAKING SUPERVISOR-R: [address] [place] [address], Ph. Attender: Christen Whitten [facility] Medical 07/30/2020 12:00:00 AM EST JONATAN ([facility]) Christen Whitten, NET MAKING SUPERVISOR-R: [address] [place] [address], Ph. Attender: Christen Whitten [facility] Medical 07/30/2020 12:00:00 AM EST JONATAN ([facility]) Christen Whitten, NET MAKING SUPERVISOR-R: [address] [place] [address], Ph. Attender: Christen Whitten [facility] Medical 07/30/2020 12:00:00 AM EST JONATAN ([facility]) Christen Ronnyalmazhiginio, NET MAKING SUPERVISOR-R: [address] [place] [address], Ph. Attender: Christen Maria Dolores [facility] Medical 07/30/2020 12:00:00 AM EST JONATAN ([facility]) Christen Maria Dolores, NET MAKING SUPERVISOR-R: [address] [place] [address], Ph. Attender: Christen Maria Dolores [facility] Medical 07/30/2020 12:00:00 AM EST JONATAN ([facility]) Christen Maria Dolores, NET MAKING SUPERVISOR-R: [address] [place] [address], Ph. Attender: Christen Mraia Dolores [facility] Medical 07/30/2020 12:00:00 AM EST JONATAN ([facility]) Christen Ronnyalmazhiginio, NET MAKING SUPERVISOR-R: [address] [place] [address], Ph. Attender: Christen Whitten [facility] Medical 07/30/2020 12:00:00 AM EST JONATAN ([facility]) Christen Maria Dolores, NET MAKING SUPERVISOR-R: [address] [place] [address], Ph. Attender: Christen Whitten [facility] Medical 07/30/2020 12:00:00 AM EST JONATAN ([facility]) Christen Maria Dolores, NET MAKING SUPERVISOR-R: [address] , [place] [address], Ph. Attender: Christen Whitten [facility] Medical 07/30/2020 12:00:00 AM EST JONATAN ([facility]) Christen Whitten, NET MAKING SUPERVISOR-R: [address] [place] [address], Ph. Attender: Christen Whitten [facility] Medical 07/30/2020 12:00:00 AM EST JONATAN ([facility]) Christen Whitten, NET MAKING SUPERVISOR-R: [address] [place] [address], Ph. Attender: Christen Whitten [facility] Medical 07/30/2020 12:00:00 AM EST JONATAN ([facility]) Christen Burchhiginio, NET MAKING SUPERVISOR-R: [address] [place] [address], Ph. Attender: Christen Burchhiginio [facility] Medical 07/30/2020 12:00:00 AM EST JONATAN ([facility]) Christen Whitten, NET MAKING SUPERVISOR-R: [address] [place] [address], Ph. Attender: Christen Ronnyalmazhiginio [facility] Medical 07/30/2020 12:00:00 AM EST JONATAN ([facility]) Christen Burchhiginio, NET MAKING SUPERVISOR-R: [address] [place] [address], Ph. Attender: Christen Juanelisabethhiginio [facility] Medical 07/30/2020 12:00:00 AM EST JONATAN ([facility]) Christen Maria Dolores, NET MAKING SUPERVISOR-R: [address] [place] [address], Ph. Attender: Christen Whitten [facility] Medical 07/30/2020 12:00:00 AM EST JONATAN ([facility]) Christen Whitten, NET MAKING SUPERVISOR-R: [address] , [place] [address], Ph. Attender: Christen Whitten [facility] Medical 07/30/2020 12:00:00 AM EST JONATAN ([facility]) Christen Whitten, NET MAKING SUPERVISOR-R: [address] , [place] [address], Ph. Attender: Christen Whitten [facility] Medical 07/30/2020 12:00:00 AM EST JONATAN ([facility]) Christen Ronnyalmazhiginio, NET MAKING SUPERVISOR-R: [address] , [place] [address], Ph. Attender: Christen Martineznikkoalmazhiginio [facility] Medical 07/30/2020 12:00:00 AM EST JONATAN ([facility]) Christen Whitten, NET MAKING SUPERVISOR-R: [address] [place] [address], Ph. Attender: Christen Ronnyalmazhiginio [facility] Medical 07/30/2020 12:00:00 AM EST JONATAN ([facility]) Christen Burchhiginio, NET MAKING SUPERVISOR-R: [address] , [place] [address], Ph. Attender: Christen Ronnyalmazo [facility] Medical 07/30/2020 12:00:00 AM EST JONATAN ([facility]) Christen Maria Dolores, NET MAKING SUPERVISOR-R: [address] , [place] [address], Ph. Attender: Christen Whitten [facility] Medical 07/30/2020 12:00:00 AM EST JONATAN ([facility]) Christen Whitten, NET MAKING SUPERVISOR-R: [address] [place] [address], Ph. Attender: Christen Whitten [facility] Medical 07/30/2020 12:00:00 AM EST JONATAN ([facility]) Christen Whitten, NET MAKING SUPERVISOR-R: [address] [place] [address], Ph. Attender: Christen Whitten [facility] Medical 07/30/2020 12:00:00 AM EST JONATAN ([facility]) Christen Whitten, NET MAKING SUPERVISOR-R: [address] [place] [address], Ph. Attender: Christen Whitten [facility] Medical 07/30/2020 12:00:00 AM EST JONATAN ([facility]) Christen Whitten, NET MAKING SUPERVISOR-R: [address] [place] [address], Ph. Attender: Christen Burcho [facility] Medical 07/30/2020 12:00:00 AM EST JONATAN ([facility]) Christen Whitten, NET MAKING SUPERVISOR-R: [address] [place] [address], Ph. Attender: Christen Whitten [facility] Medical 07/30/2020 12:00:00 AM EST JONATAN ([facility]) Christen Ronnyalmazhiginio, NET MAKING SUPERVISOR-R: [address], [place] [address], Ph. Attender: Christen Whitten [facility] Medical 07/07/2020 12:00:00 AM EST JONATAN ([facility]) Christen Whitten, NET MAKING SUPERVISOR-R: [address], [place] [address], Ph. Attender: Christen Whitten [facility] Medical 07/07/2020 12:00:00 AM EST JONATAN ([facility]) Christen Whitten, NET MAKING SUPERVISOR-R: [address], [place] [address], Ph. Attender: Christen Whitten [facility] Medical 07/07/2020 12:00:00 AM EST JONATAN ([facility]) Christen Whitten, NET MAKING SUPERVISOR-R: [address], [place] [address], Ph. Attender: Christen Whitten [facility] Medical 07/07/2020 12:00:00 AM EST JONATAN ([facility]) Christen Whitten, NET MAKING SUPERVISOR-R: [address], [place] [address], Ph. Attender: Christen Whitten [facility] Medical 07/07/2020 12:00:00 AM EST JONATAN ([facility]) Christen Whitten, NET MAKING SUPERVISOR-R: [address], [place] [address], Ph. Attender: Christen Whitten [facility] Medical 07/07/2020 12:00:00 AM EST JONATAN ([facility]) Christen Whitten, NET MAKING SUPERVISOR-R: [address], [place] [address], Ph. Attender: Christen Whitten [facility] Medical 07/07/2020 12:00:00 AM EST JONATAN ([facility]) Christen Whitten, NET MAKING SUPERVISOR-R: [address], [place] [address], Ph. Attender: Christen Whitten [facility] Medical 07/07/2020 12:00:00 AM EST JONATAN ([facility]) Christen Whitten, NET MAKING SUPERVISOR-R: [address], [place] [address], Ph. Attender: Christen Whitten [facility] Medical 07/07/2020 12:00:00 AM EST JONATAN ([facility]) Christen Whitten, NET MAKING SUPERVISOR-R: [address], [place] [address], Ph. Attender: Christen Whitten [facility] Medical 07/07/2020 12:00:00 AM EST JONATAN ([facility]) Christen Whitten, NET MAKING SUPERVISOR-R: [address], [place] [address], Ph. Attender: Christen Whitten [facility] Medical 07/07/2020 12:00:00 AM EST JONATAN ([facility]) Christen Whitten, NET MAKING SUPERVISOR-R: [address], [place] [address], Ph. Attender: Christen Whitten [facility] Medical 07/07/2020 12:00:00 AM EST JONATAN ([facility]) Christen Whitten, NET MAKING SUPERVISOR-R: [address], [place] [address], Ph. Attender: Christen Whitten [facility] Medical 07/07/2020 12:00:00 AM EST JONATAN ([facility]) Christen Whitten, NET MAKING SUPERVISOR-R: [address], [place] [address], Ph. Attender: Christen Whitten [facility] Medical 07/07/2020 12:00:00 AM EST JONATAN ([facility]) Christen Whitten, NET MAKING SUPERVISOR-R: [address], [place] [address], Ph. Attender: Christen Whitten [facility] Medical 07/07/2020 12:00:00 AM EST JONATAN ([facility]) Christen Whitten, NET MAKING SUPERVISOR-R: [address], [place] [address], Ph. Attender: Christen Whitten [facility] Medical 07/07/2020 12:00:00 AM EST JONATAN ([facility]) Christen Whitten, NET MAKING SUPERVISOR-R: [address], [place] [address], Ph. Attender: Christen Whitten [facility] Medical 07/07/2020 12:00:00 AM EST JONATAN ([facility]) Christen Whitten, NET MAKING SUPERVISOR-R: [address], [place] [address], Ph. Attender: Christen Whitten [facility] Medical 07/07/2020 12:00:00 AM EST JONATAN ([facility]) Christen Whitten, NET MAKING SUPERVISOR-R: [address], [place] [address], Ph. Attender: Christen Whitten [facility] Medical 07/07/2020 12:00:00 AM EST JONATAN ([facility]) Christen Whitten, NET MAKING SUPERVISOR-R: [address], [place] [address], Ph. Attender: Christen Whitten [facility] Medical 07/07/2020 12:00:00 AM EST JONATAN ([facility]) Christen Whitten, NET MAKING SUPERVISOR-R: [address], [place] [address], Ph. Attender: Christen Whitten [facility] Medical 07/07/2020 12:00:00 AM EST JONATAN ([facility]) Christen Whitten, NET MAKING SUPERVISOR-R: [address], [place] [address], Ph. Attender: Christen Whitten [facility] Medical 07/07/2020 12:00:00 AM EST JONATAN ([facility]) Christen Whitten, NET MAKING SUPERVISOR-R: [address], [place] [address], Ph. Attender: Christen Whitten [facility] Medical 07/07/2020 12:00:00 AM EST JONATAN ([facility]) Christen Whitten, NET MAKING SUPERVISOR-R: [address], [place] [address], Ph. Attender: Christen Whitten [facility] Medical 07/07/2020 12:00:00 AM EST JONATAN ([facility]) Christen Whitten, NET MAKING SUPERVISOR-R: [address], [place] [address], Ph. Attender: Christen Whitten [facility] Medical 07/07/2020 12:00:00 AM EST JONATAN ([facility]) Christen Whitten, NET MAKING SUPERVISOR-R: [address], [place] [address], Ph. Attender: Christen Whitten [facility] Medical 07/07/2020 12:00:00 AM EST JONATAN ([facility]) Christen Whitten, NET MAKING SUPERVISOR-R: [address], [place] [address], Ph. Attender: Christen Ronnycarmel [facility] Medical 07/07/2020 12:00:00 AM EST JONATAN ([facility]) Christen Whitten, NET MAKING SUPERVISOR-R: [address], [place] [address], Ph. Attender: Christen Whitten [place] - [facility] Medical 07/07/2020 12:00:00 AM EST JONATAN ([facility]) Outpatient Attender: IAM VITALE FP 06/18/2020 12:04:00 P M EDT [facility] Outpatient Attender: Robyn VITALE 06/05/2020 11:0 1:01 AM EDT [facility] Outpatient Attender: IAM VITALE FP 06/02/2020 11:18:00 A M EDT [facility] Outpatient Attender: Robyn VITALE FP 05/23/2020 11:3 9:00 AM EDT [facility] Outpatient Attender: Robyn VITALE FP 05/20/2020 10:1 8:01 AM EDT [facility] Outpatient Attender: Robyn VITALE FP 05/16/2020 07:2 0:01 AM EDT [facility] Outpatient Attender: Robyn VITALE FP 05/11/2020 04:3 7:00 PM EDT [facility] Outpatient Attender: IAM VITALE FP 05/11/2020 04:36:59 P M EDT [facility] Outpatient Attender: IAM VITALE FP 05/11/2020 04:36:01 P M EDT [facility] Outpatient Attender: Robyn VITALE FP 05/11/2020 04:3 6:01 PM EDT [facility] Outpatient Attender: IAM VITALE FP 05/09/2020 07:37:01 A M EDT [facility] Outpatient Attender: IAM VITALE FP 05/06/2020 09:47:00 A M EDT [facility] Outpatient Attender: Billy Valenzuela MD Main office - [place] 05/01/2020 11:00:00 AM EDT MEDENT ([facility] [place]) Outpatient Attender: Robyn VITALE FP 04/14/2020 11:1 4:02 AM EDT [facility] Outpatient Attender: IAM JIMENES 04/08/2020 02:09:01 P M EDT [facility] Immunizations Vaccine Date Status Description Data Source(s) COVID-19 vaccine, vector-nr, rS-Ad26, PF, 0.5 mL 01/20/2021 02:36:13 PM EDT completed .5 mL FARWELL ([facility]) COVID-19 vaccine, vector-nr, rS-Ad26, PF, 0.5 mL 01/20/2021 02:36:13 PM EDT completed .5 mL JONATAN ([facility]) COVID-19 vaccine, vector-nr, rS-Ad26, PF, 0.5 mL 01/20/2021 02:36:13 PM EDT completed .5 mL F[facility]WELL ([facility]) COVID-19 vaccine, vector-nr, rS-Ad26, PF, 0.5 mL 01/20/2021 02:36:13 PM EDT completed .5 mL [facility]LL ([facility]) COVID-19 vaccine, vector-nr, rS-Ad26, PF, 0.5 mL 01/20/2021 02:36:13 PM EDT completed .5 mL [facility]LL ([facility]) COVID-19 vaccine, vector-nr, rS-Ad26, PF, 0.5 mL 01/20/2021 02:36:13 PM EDT completed .5 mL [facility]LL ([facility]) COVID-19 VACCINE Susana 01/20/2021 12:00:00 AM EDT completed [facility] Vaccine Series Complete: YESThis Data wa s Submitted to [facility] Via [employer]. Medications Medication Brand Name Start Date Product Form Dose Route Admi nistrative Instructions Pharmacy Instructions Status Indications Reaction Description Data Source(s) ipratropium bromide 42 mcg (0.06 %) nasa l spray USE TWO SPRAYS IN EACH NOSTRIL ONCE DAILY [id number] 01/13/2021 12:00:00 AM EDT compl eted ipratropium bromide 0.042 MG/ACTUAT Metered Dose Nasal [place] FARWELL ([facility]) ipratropium bromide 42 mcg (0.06 %) nasa l spray USE TWO SPRAYS IN EACH NOSTRIL ONCE DAILY 2800022601/13/2021 12:00:00 AM EDT compl eted ipratropium bromide 0.042 MG/ACTUAT Metered Dose Nasal [place] JONATAN ([facility]) ipratropium bromide 42 mcg (0.06 %) nasa l spray USE TWO SPRAYS IN EACH NOSTRIL ONCE DAILY 2800022601/13/2021 12:00:00 AM EDT compl eted ipratropium bromide 0.042 MG/ACTUAT Metered Dose Nasal [place] JONATAN ([facility]) ipratropium bromide 42 mcg (0.06 %) nasa l spray USE TWO SPRAYS IN EACH NOSTRIL ONCE DAILY 2800022601/13/2021 12:00:00 AM EDT compl eted ipratropium bromide 0.042 MG/ACTUAT Metered Dose Nasal [place] JONATAN ([facility]) ipratropium bromide 42 mcg (0.06 %) nasa l spray USE TWO SPRAYS IN EACH NOSTRIL ONCE DAILY 2800022601/13/2021 12:00:00 AM EDT compl eted ipratropium bromide 0.042 MG/ACTUAT Metered Dose Nasal [place] JONATAN ([facility]) ipratropium bromide 42 mcg (0.06 %) nasa l spray USE TWO SPRAYS IN EACH NOSTRIL ONCE DAILY 2800022601/13/2021 12:00:00 AM EDT compl eted ipratropium bromide 0.042 MG/ACTUAT Metered Dose Nasal [place] JONATAN ([facility]) ipratropium bromide 42 mcg (0.06 %) nasa l spray USE TWO SPRAYS IN EACH NOSTRIL ONCE DAILY 2800022601/13/2021 12:00:00 AM EDT compl eted ipratropium bromide 0.042 MG/ACTUAT Metered Dose Nasal [place] FARWELL ([facility]) Ondansetron 4 MG Disintegrating Oral Tablet Ondansetron 05/01/2020 12:00:00 AM EDT ORAL active MEDENT ([facility]) benzonatate 100 MG Oral Capsule benzonat ate 100 mg capsule TAKE ONE CAPSULE BY MOUTH THREE TIMES DAILY NEEDED FOR COUGH benzonatate 100 mg capsule TAKE ONE CAPSULE BY MOUTH THREE TIMES DAILY NEEDED FOR COUGH completed benzonatate 100 MG Oral Capsule JONATAN ([facility]) Doxycycline Monohydrate 100 MG Oral Caps ule doxycycline monohydrate 100 mg capsule TAKE ONE CAPSULE BY MOUTH TWICE DAILY FOR 10 DAYS doxycycline monohydrate 100 mg capsule TAKE ONE CAPSULE BY MOUTH TWICE DAILY FOR 10 DAYS completed doxycycline mo nohydrate 100 MG Oral Capsule JONATAN ([facility]) Doxycycline Monohydrate 100 MG Oral Caps ule doxycycline monohydrate 100 mg capsule TAKE ONE CAPSULE BY MOUTH TWICE DAILY FOR 10 DAYS doxycycline monohydrate 100 mg capsule TAKE ONE CAPSULE BY MOUTH TWICE DAILY FOR 10 DAYS completed doxycycline mo nohydrate 100 MG Oral Capsule JONATAN ([facility]) Doxycycline Monohydrate 100 MG Oral Caps ule doxycycline monohydrate 100 mg capsule TAKE ONE CAPSULE BY MOUTH TWICE DAILY FOR 10 DAYS doxycycline monohydrate 100 mg capsule TAKE ONE CAPSULE BY MOUTH TWICE DAILY FOR 10 DAYS completed doxycycline mo nohydrate 100 MG Oral Capsule [facility]) Doxycycline Monohydrate 100 MG Oral Caps ule doxycycline monohydrate 100 mg capsule TAKE ONE CAPSULE BY MOUTH TWICE DAILY FOR 10 DAYS doxycycline monohydrate 100 mg capsule TAKE ONE CAPSULE BY MOUTH TWICE DAILY FOR 10 DAYS completed doxycycline mo nohydrate 100 MG Oral Capsule FARWELL ([facility]) Prednisone 10 MG Oral Tablet prednisone 10 mg tablet TAKE THREE TABLETS BY MOUTH ONCE DAILY WITH FOOD prednisone 10 mg tablet TAKE THREE TABLE TS BY MOUTH ONCE DAILY WITH FOOD completed predni sone 10 MG Oral Tablet [facility]) Doxycycline Monohydrate 100 MG Oral Caps ule doxycycline monohydrate 100 mg capsule TAKE ONE CAPSULE BY MOUTH TWICE DAILY FOR 10 DAYS doxycycline monohydrate 100 mg capsule TAKE ONE CAPSULE BY MOUTH TWICE DAILY FOR 10 DAYS completed doxycycline mo nohydrate 100 [facility] ben[facility] MG Oral Capsule benzonat ate 100 mg capsule TAKE ONE CAPSULE BY MOUTH THREE TIMES DAILY NEEDED FOR COUGH benzonatate 100 mg capsule TAKE ONE CAPSULE BY MOUTH THREE TIMES DAILY NEEDED FOR COUGH completed benzonatate 100 MG Oral Capsule [facility]) Prednisone 10 MG Oral Tablet prednisone 10 mg tablet TAKE THREE TABLETS BY MOUTH ONCE DAILY WITH FOOD prednisone 10 mg tablet TAKE THREE TABLE TS BY MOUTH ONCE DAILY WITH FOOD completed predni sone 10 MG Oral Tablet JONATAN ([facility]) Prednisone 10 MG Oral Tablet prednisone 10 mg tablet TAKE THREE TABLETS BY MOUTH ONCE DAILY WITH FOOD prednisone 10 mg tablet TAKE THREE TABLE TS BY MOUTH ONCE DAILY WITH FOOD completed predni sone 10 MG Oral Tablet JONATAN ([facility]) Prednisone 10 MG Oral Tablet prednisone 10 mg tablet TAKE THREE TABLETS BY MOUTH ONCE DAILY WITH FOOD prednisone 10 mg tablet TAKE THREE TABLE TS BY MOUTH ONCE DAILY WITH FOOD completed predni sone 10 MG Oral Tablet JONATAN ([facility]) Doxycycline Monohydrate 100 MG Oral Caps ule doxycycline monohydrate 100 mg capsule TAKE ONE CAPSULE BY MOUTH TWICE DAILY FOR 10 DAYS doxycycline monohydrate 100 mg capsule TAKE ONE CAPSULE BY MOUTH TWICE DAILY FOR 10 DAYS completed doxycycline mo nohydrate 100 MG Oral Capsule JONATAN ([facility]) Doxycycline Monohydrate 100 MG Oral Caps ule doxycycline monohydrate 100 mg capsule TAKE ONE CAPSULE BY MOUTH TWICE DAILY FOR 10 DAYS doxycycline monohydrate 100 mg capsule TAKE ONE CAPSULE BY MOUTH TWICE DAILY FOR 10 DAYS completed doxycycline mo nohydrate 100 MG Oral Capsule JONATAN ([facility]) Prednisone 10 MG Oral Tablet prednisone 10 mg tablet TAKE THREE TABLETS BY MOUTH ONCE DAILY WITH FOOD prednisone 10 mg tablet TAKE THREE TABLE TS BY MOUTH ONCE DAILY WITH FOOD completed predni sone 10 MG Oral Tablet JONATAN ([facility]) Prednisone 10 MG Oral Tablet prednisone 10 mg tablet TAKE THREE TABLETS BY MOUTH ONCE DAILY WITH FOOD prednisone 10 mg tablet TAKE THREE TABLE TS BY MOUTH ONCE DAILY WITH FOOD completed predni sone 10 MG Oral Tablet JONATAN ([facility]) benzonatate 100 MG Oral Capsule benzonat ate 100 mg capsule TAKE ONE CAPSULE BY MOUTH THREE TIMES DAILY NEEDED FOR COUGH benzonatate 100 mg capsule TAKE ONE CAPSULE BY MOUTH THREE TIMES DAILY NEEDED FOR COUGH completed benzonatate 100 MG Oral Capsule JONATAN ([facility]) Prednisone 10 MG Oral Tablet prednisone 10 mg tablet TAKE THREE TABLETS BY MOUTH ONCE DAILY WITH FOOD prednisone 10 mg tablet TAKE THREE TABLE TS BY MOUTH ONCE DAILY WITH FOOD completed predni sone 10 MG Oral Tablet JONATAN ([facility]) Prednisone 10 MG Oral Tablet prednisone 10 mg tablet TAKE THREE TABLETS BY MOUTH ONCE DAILY WITH FOOD prednisone 10 mg tablet TAKE THREE TABLE TS BY MOUTH ONCE DAILY WITH FOOD completed predni sone 10 MG Oral Tablet JONATAN ([facility]) benzonatate 100 MG Oral Capsule benzonat ate 100 mg capsule TAKE ONE CAPSULE BY MOUTH THREE TIMES DAILY NEEDED FOR COUGH benzonatate 100 mg capsule TAKE ONE CAPSULE BY MOUTH THREE TIMES DAILY NEEDED FOR COUGH completed benzonatate 100 MG Oral Capsule JONATAN ([facility]) benzonatate 100 MG Oral Capsule benzonat ate 100 mg capsule TAKE ONE CAPSULE BY MOUTH THREE TIMES DAILY NEEDED FOR COUGH benzonatate 100 mg capsule TAKE ONE CAPSULE BY MOUTH THREE TIMES DAILY NEEDED FOR COUGH completed benzonatate 100 MG Oral Capsule JONATAN ([facility]) benzonatate 100 MG Oral Capsule benzonat ate 100 mg capsule TAKE ONE CAPSULE BY MOUTH THREE TIMES DAILY NEEDED FOR COUGH benzonatate 100 mg capsule TAKE ONE CAPSULE BY MOUTH THREE TIMES DAILY NEEDED FOR COUGH completed benzonatate 100 MG Oral Capsule [facility]LL ([facility]) Doxycycline Monohydrate 100 MG Oral Caps ule doxycycline monohydrate 100 mg capsule TAKE ONE CAPSULE BY MOUTH TWICE DAILY FOR 10 DAYS doxycycline monohydrate 100 mg capsule TAKE ONE CAPSULE BY MOUTH TWICE DAILY FOR 10 DAYS completed doxycycline mo nohydrate 100 MG Oral Capsule [facility]LL ([facility]) Ergocalciferol 02082 UNT Oral Capsule er gocalciferol (vitamin D2) 1,250 mcg (50,000 unit) capsule ergocalciferol (vitamin D2) 1,250 mcg (5 0,000 unit) capsule completed ergocalciferol 1.25 MG Oral Capsule [facility]WELL ([facility]) benzonatate 100 MG Oral Capsule benzonat ate 100 mg capsule TAKE ONE CAPSULE BY MOUTH THREE TIMES DAILY NEEDED FOR COUGH benzonatate 100 mg capsule TAKE ONE CAPSULE BY MOUTH THREE TIMES DAILY NEEDED FOR COUGH completed benzonatate 100 MG Oral Capsule JONATAN ([facility]) Prednisone 10 MG Oral Tablet prednisone 10 mg tablet TAKE THREE TABLETS BY MOUTH ONCE DAILY WITH FOOD prednisone 10 mg tablet TAKE THREE TABLE TS BY MOUTH ONCE DAILY WITH FOOD completed [facility]one 10 [facility] Prednisone 10 MG Oral Tablet prednisone 10 mg tablet TAKE THREE TABLETS BY MOUTH ONCE DAILY WITH FOOD prednisone 10 mg tablet TAKE THREE TABLE TS BY MOUTH ONCE DAILY WITH FOOD completed predni sone 10 MG Oral Tablet [facility]) Doxycycline Monohydrate 100 MG Oral Caps ule doxycycline monohydrate 100 mg capsule TAKE ONE CAPSULE BY MOUTH TWICE DAILY FOR 10 DAYS doxycycline monohydrate 100 mg capsule TAKE ONE CAPSULE BY MOUTH TWICE DAILY FOR 10 DAYS completed doxycycline mo nohydrate 100 MG Oral Capsule JONATAN ([facility]) Doxycycline Monohydrate 100 MG Oral Caps ule doxycycline monohydrate 100 mg capsule TAKE ONE CAPSULE BY MOUTH TWICE DAILY FOR 10 DAYS doxycycline monohydrate 100 mg capsule TAKE ONE CAPSULE BY MOUTH TWICE DAILY FOR 10 DAYS completed doxycycline mo nohydrate 100 MG Oral Capsule JONATAN ([facility]) benzonatate 100 MG Oral Capsule benzonat ate 100 mg capsule TAKE ONE CAPSULE BY MOUTH THREE TIMES DAILY NEEDED FOR COUGH benzonatate 100 mg capsule TAKE ONE CAPSULE BY MOUTH THREE TIMES DAILY NEEDED FOR COUGH completed benzonatate 100 MG Oral Capsule JONATAN ([facility]) Doxycycline Monohydrate 100 MG Oral Caps ule doxycycline monohydrate 100 mg capsule TAKE ONE CAPSULE BY MOUTH TWICE DAILY FOR 10 DAYS doxycycline monohydrate 100 mg capsule TAKE ONE CAPSULE BY MOUTH TWICE DAILY FOR 10 DAYS completed doxycycline mo nohydrate 100 MG Oral Capsule JONATAN ([facility]) Prednisone 10 MG Oral Tablet prednisone 10 mg tablet TAKE THREE TABLETS BY MOUTH ONCE DAILY WITH FOOD prednisone 10 mg tablet TAKE THREE TABLE TS BY MOUTH ONCE DAILY WITH FOOD completed predni sone 10 [facility] benzonatate 100 MG Oral Capsule benzonat ate 100 mg capsule TAKE ONE CAPSULE BY MOUTH THREE TIMES DAILY NEEDED FOR COUGH benzonatate 100 mg capsule TAKE ONE CAPSULE BY MOUTH THREE TIMES DAILY NEEDED FOR COUGH completed benzonatate 100 MG Oral Capsule JONATAN ([facility]) Prednisone 10 MG Oral Tablet prednisone 10 mg tablet TAKE THREE TABLETS BY MOUTH ONCE DAILY WITH FOOD prednisone 10 mg tablet TAKE THREE TABLE TS BY MOUTH ONCE DAILY WITH FOOD completed predni sone 10 MG Oral Tablet JONATAN ([facility]) benzonatate 100 MG Oral Capsule benzonat ate 100 mg capsule TAKE ONE CAPSULE BY MOUTH THREE TIMES DAILY NEEDED FOR COUGH benzonatate 100 mg capsule TAKE ONE CAPSULE BY MOUTH THREE TIMES DAILY NEEDED FOR COUGH completed benzonatate 100 MG Oral Capsule JONATAN ([facility]) Doxycycline Monohydrate 100 MG Oral Caps ule doxycycline monohydrate 100 mg capsule TAKE ONE CAPSULE BY MOUTH TWICE DAILY FOR 10 DAYS doxycycline monohydrate 100 mg capsule TAKE ONE CAPSULE BY MOUTH TWICE DAILY FOR 10 DAYS completed doxycycline mo nohydrate 100 MG Oral Capsule JONATAN ([facility]) Doxycycline Monohydrate 100 MG Oral Caps ule doxycycline monohydrate 100 mg capsule TAKE ONE CAPSULE BY MOUTH TWICE DAILY FOR 10 DAYS doxycycline monohydrate 100 mg capsule TAKE ONE CAPSULE BY MOUTH TWICE DAILY FOR 10 DAYS completed doxycycline mo nohydrate 100 MG Oral Capsule JONATAN ([facility]) Doxycycline Monohydrate 100 MG Oral Caps ule doxycycline monohydrate 100 mg capsule TAKE ONE CAPSULE BY MOUTH TWICE DAILY FOR 10 DAYS doxycycline monohydrate 100 mg capsule TAKE ONE CAPSULE BY MOUTH TWICE DAILY FOR 10 DAYS completed doxycycline mo nohydrate 100 MG Oral Capsule JONATAN ([facility]) benzonatate 100 MG Oral Capsule benzonat ate 100 mg capsule TAKE ONE CAPSULE BY MOUTH THREE TIMES DAILY NEEDED FOR COUGH benzonatate 100 mg capsule TAKE ONE CAPSULE BY MOUTH THREE TIMES DAILY NEEDED FOR COUGH completed benzonatate 100 MG Oral Capsule JONATAN ([facility]) Prednisone 10 MG Oral Tablet prednisone 10 mg tablet TAKE THREE TABLETS BY MOUTH ONCE DAILY WITH FOOD prednisone 10 mg tablet TAKE THREE TABLE TS BY MOUTH ONCE DAILY WITH FOOD completed predni sone 10 MG Oral Tablet [facility]ON[facility]AN ([facility]) Prednisone 10 MG Oral Tablet prednisone 10 mg tablet TAKE THREE TABLETS BY MOUTH ONCE DAILY WITH FOOD prednisone 10 mg tablet TAKE THREE TABLE TS BY MOUTH ONCE DAILY WITH FOOD completed predni sone 10 MG Oral Tablet JONATAN ([facility]) Prednisone 10 MG Oral Tablet prednisone 10 mg tablet TAKE THREE TABLETS BY MOUTH ONCE DAILY WITH FOOD prednisone 10 mg tablet TAKE THREE TABLE TS BY MOUTH ONCE DAILY WITH FOOD completed predni sone 10 MG Oral Tablet JONATAN ([facility]) Doxycycline Monohydrate 100 MG Oral Caps ule doxycycline monohydrate 100 mg capsule TAKE ONE CAPSULE BY MOUTH TWICE DAILY FOR 10 DAYS doxycycline monohydrate 100 mg capsule TAKE ONE CAPSULE BY MOUTH TWICE DAILY FOR 10 DAYS completed doxycycline mo nohydrate 100 MG Oral Capsule JONATAN ([facility]) Prednisone 10 MG Oral Tablet prednisone 10 mg tablet TAKE THREE TABLETS BY MOUTH ONCE DAILY WITH FOOD prednisone 10 mg tablet TAKE THREE TABLE TS BY MOUTH ONCE DAILY WITH FOOD completed predni sone 10 MG Oral Tablet JONATAN ([facility]) benzonatate 100 MG Oral Capsule benzonat ate 100 mg capsule TAKE ONE CAPSULE BY MOUTH THREE TIMES DAILY NEEDED FOR COUGH benzonatate 100 mg capsule TAKE ONE CAPSULE BY MOUTH THREE TIMES DAILY NEEDED FOR COUGH completed benzonatate 100 MG Oral Capsule JONATAN ([facility]) benzonatate 100 MG Oral Capsule benzonat ate 100 mg capsule TAKE ONE CAPSULE BY MOUTH THREE TIMES DAILY NEEDED FOR COUGH benzonatate 100 mg capsule TAKE ONE CAPSULE BY MOUTH THREE TIMES DAILY NEEDED FOR COUGH completed benzonatate 100 MG Oral Capsule JONATAN ([facility]) Doxycycline Monohydrate 100 MG Oral Caps ule doxycycline monohydrate 100 mg capsule TAKE ONE CAPSULE BY MOUTH TWICE DAILY FOR 10 DAYS doxycycline monohydrate 100 mg capsule TAKE ONE CAPSULE BY MOUTH TWICE DAILY FOR 10 DAYS completed doxycycline mo nohydrate 100 MG Oral Capsule JONATAN ([facility]) Prednisone 10 MG Oral Tablet prednisone 10 mg tablet TAKE THREE TABLETS BY MOUTH ONCE DAILY WITH FOOD prednisone 10 mg tablet TAKE THREE TABLE TS BY MOUTH ONCE DAILY WITH FOOD completed predni sone 10 MG Oral Tablet JONATAN ([facility]) Doxycycline Monohydrate 100 MG Oral Caps ule doxycycline monohydrate 100 mg capsule TAKE ONE CAPSULE BY MOUTH TWICE DAILY FOR 10 DAYS doxycycline monohydrate 100 mg capsule TAKE ONE CAPSULE BY MOUTH TWICE DAILY FOR 10 DAYS completed doxycycline mo nohydrate 100 MG Oral Capsule JONATAN ([facility]) benzonatate 100 MG Oral Capsule benzonat ate 100 mg capsule TAKE ONE CAPSULE BY MOUTH THREE TIMES DAILY NEEDED FOR COUGH benzonatate 100 mg capsule TAKE ONE CAPSULE BY MOUTH THREE TIMES DAILY NEEDED FOR COUGH completed benzonatate 100 MG Oral Capsule JONATAN ([facility]) Prednisone 10 MG Oral Tablet prednisone 10 mg tablet TAKE THREE TABLETS BY MOUTH ONCE DAILY WITH FOOD prednisone 10 mg tablet TAKE THREE TABLE TS BY MOUTH ONCE DAILY WITH FOOD completed predni sone 10 MG Oral Tablet JONATAN ([facility]) Doxycycline Monohydrate 100 MG Oral Caps ule doxycycline monohydrate 100 mg capsule TAKE ONE CAPSULE BY MOUTH TWICE DAILY FOR 10 DAYS doxycycline monohydrate 100 mg capsule TAKE ONE CAPSULE BY MOUTH TWICE DAILY FOR 10 DAYS completed doxycycline mo nohydrate 100 MG Oral Capsule JONATAN ([facility]) Insurance Providers Payer name Policy type / Coverage type Policy ID Covered democrat ID Covered democrat's relationship to garcia Policy Garcia Plan Information EXCELL C [id number] Self [id number] Medicaid S [id number] S [id number] D [employer] [facility] O [id number] S [id number] Managed Care - Community Plan [facility] P [id number] S [id number] Managed Care BCBS O [id number] S [id number] Medicaid S [id number] S [id number] [employer] COMMUNITY PLAN MCDHMO [id number] SP [id number] [facility] [id number] Self [id number] Medicaid S [id number] S [id number] Managed Care - Community Plan [facility] P [id number] S [id number] Medicaid S [id number] S [id number] Managed Care - Community Plan [facility] P [id number] S [id number] [employer] COMMUNITY PLAN MCDHMO [id number] SP [id number] Medicaid S [id number] S [id number] Managed Care - [facility] Community Plan P [id number] S [id number] Managed Care - Community Plan [facility] P [id number] S [id number] [employer] COMMUNITY PLAN MCDHMO [id number] SP [id number] Medicaid S [id number] S [id number] Managed Care - UHC Community Plan P [id number] S [id number] Medicaid S [id number] S [id number] [facility] JARON [id number] SP [id number] [facility]) O [id number] S [id number] MEDICAID [id number] SP [id number] UNHC CP DUAL COMP - RECURRING [id number] 18 [id number] MEDICAID -RECURRING [id number] [facility] JARON [id number] SP [id number] [facility] Jaron/MCR Health Maintenance Organization (HMO) [id number] Self [id number] [facility] [id number] SP [id number] [facility] [id number] SP [id number] SELF PAY [employer] Medicare Commercial [id number] Self [id number] [facility] PLUS [id number] SP [id number] [facility] Health Maintenance Organization (HMO) [id number] Self [id number] Medicaid Dental O [id number] S [id number] Managed Care [facility] O [id number] S [id number] BLUE CROSS MEAD PLAN [id number] SP [id number] [facility] BLUE [id number] SP [id number] Problems, Conditions, and Diagnoses No Information Surgeries/Procedures No Information Results ID Date Data Source [id number] 02/10/2021 11:10:00 AM EDT [facility] ([facility]) Name Value Range Interpretation Code Description Data Angela rce(s) Supporting Document(s) sars-cov-2 negative negative Sars-cov-2 [facility] ([facility]) ID Date Data Source [id number] 02/10/2021 11:10:00 AM EDT [facility] ([facility]) Name Value Range Interpretation Code Description Data Angela rce(s) Supporting Document(s) sars-cov-2 negative negative Sars-cov-2 [facility] ([facility]) ID Date Data Source [id number] 02/10/2021 11:10:00 AM EDT [facility] ([facility]) Name Value Range Interpretation Code Description Data Angela rce(s) Supporting Document(s) sars-cov-2 negative negative Sars-cov-2 [facility]) ID Date Data Source [id number] 02/10/2021 11:06:00 AM EDT [facility] Name Value Range Interpretation Code Description Data Angela rce(s) Supporting Document(s) SARS coronavirus 2 RdRp gene [Presence] in Respiratory specimen by TARI with probe detection Not detected [facility] This lab was ordered by [facility] and reported by [facility]. ID Date Data Source [id number] 01/06/2021 10:42:00 AM EDT [facility] ([facility]) Name Value Range Interpretation Code Description Data Angela rce(s) Supporting Document(s) Hemoglobin A1c/Hemoglobin.total in Blood 7.7 %_of_total_HGB <5.7 Above high normal Hemoglobin a1C [facility] ([facility]) ID Date Data Source [id number] 01/06/2021 10:42:00 AM EDT [facility] ([facility]) Name Value Range Interpretation Code Description Data Angela rce(s) Supporting Document(s) Calcidiol [Mass/volume] in Serum or Plasma 20 NG/mL 30-100 Below low normal Vitamin D,25-Oh,total,ia [facility]) ID Date Data Source [id number] 01/06/2021 10:42:00 AM EDT [facility] ([facility]) Name Value Range Interpretation Code Description Data Angela rce(s) Supporting Document(s) Leukocytes [#/volume] in Blood by Automated count 5.7 thousand/uL 3 .8-10.8 White Blood Cell Count JONATAN ([facility]) Erythrocytes [#/volume] in Blood by Automated count 5.20 million /uL 3.80-5.10 Above high normal Red Blood Cell Count JONATAN ([facility]) Erythrocyte mean corpuscular volume [Entitic volume] by Auto mated count 81.7 fL 80.0-100.0 Mcv JONATAN ([facility]) Hematocrit [Volume Fraction] of Blood by Automated count 42.5 % 35.0-45.0 Hematocrit [facility] ([facility]) Hemoglobin [Mass/volume] in Blood 13.4 g/dL 11.7-15.5 He moglobin JONATAN ([facility]) Erythrocyte mean corpuscular hemoglobin concentration [Mass/volume] by Automated count 31.5 g/dL 32.0-36.0 Below low normal Mchc JONATAN ([facility]) Erythrocyte mean corpuscular hemoglobin [Entitic mass] by Automated count 25.8 pg 27.0-33.0 Below low normal Mch JONATAN ([facility]) Erythrocyte distribution width [Ratio] by Automated count 14.0 % 11.0-15.0 Rdw JONATAN ([facility]) Platelets [#/volume] in Blood by Automated count 261 thousand/uL 14 0-400 Platelet Count JONATAN ([facility]) Neutrophils [#/volume] in Blood by Automated count 3021 cells/uL 15 00-7800 Absolute Neutrophils JONATAN ([facility]) Platelet mean volume [Entitic volume] in Blood by Cj-Cecilio 10.7 f L 7.5-12.5 Mpv [facility] ([facility]) Lymphocytes [#/volume] in Blood by Automated count 2012 cells/uL 85 0-3900 Absolute Lymphocytes JONATAN ([facility]) Eosinophils [#/volume] in Blood by Automated count 160 cells/uL 15- 500 Absolute Eosinophils JONATAN ([facility]) Monocytes [#/volume] in Blood by Automated count 479 cells/uL 200-9 50 Absolute Monocytes JONATAN ([facility]) Basophils [#/volume] in Blood by Automated count 29 cells/uL 0-200 Absolute Basophils [facility] ([facility]) Neutrophils/100 leukocytes in Blood by Automated count 53 % 38- 80 Neutrophils JONATAN ([facility]) Lymphocytes/100 leukocytes in Blood by Automated count 35.3 % 15-49 Lymphocytes JONATAN ([facility]) Monocytes/100 leukocytes in Blood by Automated count 8.4 % 0-13 Monocytes JOANTAN ([facility]) Eosinophils/100 leukocytes in Blood by Automated count 2.8 % 0-8 Eosinophils [facility] ([facility]) Basophils/100 leukocytes in Blood by Automated count 0.5 % 0-2 Basophils [facility]) ID Date Data Source [id number] 01/06/2021 10:42:00 AM EDT [facility]) Name Value Range Interpretation Code Description Data Angela rce(s) Supporting Document(s) Bacteria identified in Urine by Culture Reflexive Urine Culture JONATAN ([facility]) ID Date Data Source [id number] 01/06/2021 10:42:00 AM EDT JONATAN ([facility]) Name Value Range Interpretation Code Description Data Angela rce(s) Supporting Document(s) Color of Urine yellow yellow Color JONATAN ([facility]) Appearance of Urine cloudy clear Abnormal (applies to non-numeric results) Appearance JONATAN ([facility]) Specific gravity of Urine by Test strip 1.001-1.035 Specific Barry JONATAN ([facility]) pH of Urine by Test strip 5.0-8.0 Ph JONATAN ([facility]) Glucose [Presence] in Urine by Test strip trace negati ve Abnormal (applies to non-numeric results) Glucose J[facility]AN ([facility]) Ketones [Presence] in Urine by Test strip 1+ negati ve Abnormal (applies to non- numeric results) Ketones JONATAN ([facility]) Hemoglobin [Presence] in Urine by Test strip negative negative Occult Blood JONATAN ([facility]) Bilirubin.total [Presence] in Urine by Test strip negative negative Bilirubin JONATAN ([facility]) Protein [Presence] in Urine by Test strip negative negative Protein JONATAN ([facility]) Nitrite [Presence] in Urine by Test strip negative negative Nitrite JONATAN ([facility]) Leukocyte esterase [Presence] in Urine by Test strip negative n egative Leukocyte Esterase JONATAN ([facility]) Leukocytes [#/area] in Urine sediment by Microscopy high pow [place] field 0-5 < or = 5 Wbc JONATAN ([facility]) Erythrocytes [#/area] in Urine sediment by Microscopy high p ower field 0-2 < or = 2 Rbc JONATAN ([facility]) Epithelial cells.squamous [#/area] in Ur ine sediment by Microscopy high power field 6-10 < or = 5 Abnormal (applies to non-numeric results) Squamous Epithelial Cells JONATAN ([facility]) Calcium oxalate crystals [#/area] in Uri ne sediment by Microscopy high power field many none or few Abnormal (applies to non-numeric results) Calcium Oxalate Crystals JONATAN ([facility]) Bacteria [#/area] in Urine sediment by Microscopy high power field none seen none seen Bacteria [facility] ([facility]) Hyaline casts [#/area] in Urine sediment by Microscopy low p ower field 0-1 none seen Abnormal (applies to non-numeric results) Hyaline Cast JONATAN ([facility]) Granular casts [#/area] in Urine sediment by Microscopy low power field 0-1 none seen Abnormal (applies to non-numeric results) Granular Cast [facility] ([facility]) ID Date Data Source [id number] 01/06/2021 10:42:00 AM EDT [facility]) Name Value Range Interpretation Code Description Data Angela rce(s) Supporting Document(s) Microalbumin [Mass/volume] in Urine 2.2 mg/dL see note: Albumin, Urine [facility] ([facility]) Service comment Lito [facility] ([facility]) ID Date Data Source [id number] 01/06/2021 10:42:00 AM EDT [facility] ([facility]) Name Value Range Interpretation Code Description Data Angela rce(s) Supporting Document(s) Glucose [Mass/volume] in Serum or Plasma 174 mg/dL 65-99 Above high normal Glucose [facility] ([facility]) Urea nitrogen [Mass/volume] in Serum or Plasma 14 mg/dL 7-25 Urea Nitrogen (BUN) [facility]) Creatinine [Mass/volume] in Serum or Plasma 0.70 mg/dL 0.50-1.10 Creatinine [facility] ([facility]) Glomerular filtration rate/1.73 sq M.pre dicted among non-blacks [Volume Rate/Area] in Serum, Plasma or Blood by Creatinine-based formula (CKD-EPI) 109 mL/min/1.73m2 > or = 60 eGFR Non-afr. Cypriot JONATAN ([facility]) Glomerular filtration rate/1.73 sq M.pre dicted among blacks [Volume Rate/Area] in Serum, Plasma or Blood by Creatinine-based formula (CKD-EPI) 126 mL/min/1.73m2 > or = 60 eGFR JONATAN ([facility]) Urea nitrogen/Creatinine [Mass Ratio] in Serum or Plasma not applic able 6-22 BUN/creatinine Ratio JONATAN ([facility]) Potassium [Moles/volume] in Serum or Plasma 4.4 mmol/L 3.5-5.3 Potassium JON[facility]AN ([facility]) Sodium [Moles/volume] in Serum or Plasma 134 mmol/L 135-146 Below low normal Sodium JON[facility]AN ([facility]) Carbon dioxide, total [Moles/volume] in Serum or Plasma 23 mmol/L 20-32 Carbon Dioxide JON[facility]AN ([facility]) Chloride [Moles/volume] in Serum or Plasma 99 mmol/L 98-110 Chloride JON[facility] ([facility]) Protein [Mass/volume] in Serum or Plasma 7.2 g/dL 6.1-8.1 [facility], [facility] Calcium [Mass/volume] in Serum or Plasma 8.6 mg/dL 8.6-10.2 Calcium [facility] ([facility]) Albumin [Mass/volume] in Serum or Plasma 4.1 g/dL 3.6-5.1 Albumin [facility] ([facility]) Globulin [Mass/volume] in Serum by calculation 3.1 g/dL_(calc) 1.9- 3.7 Globulin [facility] ([facility]) Bilirubin.total [Mass/volume] in Serum or Plasma 0.5 mg/dL 0.2-1 .2 Bilirubin, Total JON[facility]AN ([facility]) Albumin/Globulin [Mass Ratio] in Serum or Plasma 1.3 (calc) 1.0-2 .5 Albumin/globulin Ratio JON[facility]AN ([facility]) Alkaline phosphatase [Enzymatic activity/volume] in Serum or Plasma 93 U/L 31-125 Alkaline Phosphatase J[facility]AN ([facility]) Aspartate aminotransferase [Enzymatic activity/volume] in Serum or Plasma 29 U/L 10-30 Ast JONATAN ([facility]) Alanine aminotransferase [Enzymatic activity/volume] in Seru m or Plasma 35 U/L 6-29 Above high normal Alt [facility]ONATAN ([facility]) ID Date Data Source [id number] 01/06/2021 10:42:00 AM EDT [facility] ([facility]) Name Value Range Interpretation Code Description Data Angela rce(s) Supporting Document(s) Thyrotropin [Units/volume] in Serum or Plasma 2.59 mIU/L Tsh JON[facility]AN ([facility]) Thyroxine (T4) free [Mass/volume] in Serum or Plasma 1.3 NG/dL 0 .8-1.8 T4, Free JONATAN ([facility]) ID Date Data Source [id number] 01/06/2021 10:42:00 AM EDT [facility]AN ([facility]) Name Value Range Interpretation Code Description Data Angela rce(s) Supporting Document(s) Cholesterol [Mass/volume] in Serum or Plasma 169 mg/dL <200 Cholesterol, Total J[facility]AN ([facility]) Triglyceride [Mass/volume] in Serum or Plasma 193 mg/dL <150 Above high normal Triglycerides JONATAN ([facility]) Cholesterol in HDL [Mass/volume] in Serum or Plasma 39 mg/dL > or = 50 Below low normal HDL Cholesterol JONATAN ([facility]) Cholesterol.total/Cholesterol in HDL [Mass Ratio] in Serum o r Plasma 4.3 calc <5.0 Chol/hdlc Ratio J[facility] ([facility]) Cholesterol in LDL [Mass/volume] in Serum or Plasma by calculation 99 mg/dL_(calc) <100 LDL-cholesterol JON[facility]AN ([facility]) Cholesterol non HDL [Mass/volume] in Serum or Plasma 130 mg/dL_( calc) <130 Above high normal Non HDL Cholesterol J[facility]AN ([facility]) ID Date Data Source [id number] 01/06/2021 10:42:00 AM EDT [facility] ([facility]) Name Value Range Interpretation Code Description Data Angela rce(s) Supporting Document(s) Cholesterol [Mass/volume] in Serum or Plasma 169 mg/dL <200 Cholesterol, Total [facility]AN ([facility]) Triglyceride [Mass/volume] in Serum or Plasma 193 mg/dL <150 Above high normal Triglycerides JON[facility]AN ([facility]) Cholesterol in HDL [Mass/volume] in Serum or Plasma 39 mg/dL > or = 50 Below low normal HDL Cholesterol [facility]AN ([facility]) Cholesterol in LDL [Mass/volume] in Serum or Plasma by calculation 99 mg/dL_(calc) <100 LDL-cholesterol J[facility]AN ([facility]) Cholesterol.total/Cholesterol in HDL [Mass Ratio] in Serum o r Plasma 4.3 calc <5.0 Chol/hdlc Ratio J[facility] ([facility]) Cholesterol non HDL [Mass/volume] in Serum or Plasma 130 mg/dL_( calc) <130 Above high normal Non HDL Cholesterol [facility]AN ([facility]) ID Date Data Source [id number] 01/06/2021 10:42:00 AM EDT [facility] ([facility]) Name Value Range Interpretation Code Description Data Angela rce(s) Supporting Document(s) Hemoglobin A1c/Hemoglobin.total in Blood 7.7 %_of_total_HGB <5.7 Above high normal Hemoglobin a1C [facility] ([facility]) ID Date Data Source [id number] 01/06/2021 10:42:00 AM EDT [facility] ([facility]) Name Value Range Interpretation Code Description Data Angela rce(s) Supporting Document(s) Calcidiol [Mass/volume] in Serum or Plasma 20 NG/mL 30-100 Below low normal Vitamin D,25-Oh,total,ia J[facility]AN ([facility]) ID Date Data Source [id number] 01/06/2021 10:42:00 AM EDT [facility] ([facility]) Name Value Range Interpretation Code Description Data Angela rce(s) Supporting Document(s) Leukocytes [#/volume] in Blood by Automated count 5.7 thousand/uL 3 .8-10.8 White Blood Cell Count J[facility]AN ([facility]) Hemoglobin [Mass/volume] in Blood 13.4 g/dL 11.7-15.5 He moglobin JON[facility]AN ([facility]) Erythrocytes [#/volume] in Blood by Automated count 5.20 million /uL 3.80-5.10 Above high normal Red Blood Cell Count JON[facility]AN ([facility]) Hematocrit [Volume Fraction] of Blood by Automated count 42.5 % 35.0-45.0 Hematocrit J[facility]AN ([facility]) Erythrocyte mean corpuscular hemoglobin [Entitic mass] by Automated count 25.8 pg 27.0-33.0 Below low normal Mch J[facility]ATAN ([facility]) Erythrocyte mean corpuscular volume [Entitic volume] by Auto mated count 81.7 fL 80.0-100.0 Mcv JONATAN ([facility]) Platelets [#/volume] in Blood by Automated count 261 thousand/uL 14 0-400 Platelet Count [facility] ([facility]) Erythrocyte distribution width [Ratio] by Automated count 14.0 % 11.0-15.0 Rdw JON[facility]AN ([facility]) Erythrocyte mean corpuscular hemoglobin concentration [Mass/volume] by Automated count 31.5 g/dL 32.0-36.0 Below low normal Mchc JONATAN ([facility]) Lymphocytes [#/volume] in Blood by Automated count 2012 cells/uL 85 0-3900 Absolute Lymphocytes JONATAN ([facility]) Neutrophils [#/volume] in Blood by Automated count 3021 cells/uL 15 00-7800 Absolute Neutrophils JONATAN ([facility]) Platelet mean volume [Entitic volume] in Blood by Josi 10.7 f L 7.5-12.5 Mpv JON[facility]AN ([facility]) Eosinophils [#/volume] in Blood by Automated count 160 cells/uL 15- 500 Absolute Eosinophils JONATAN ([facility]) Monocytes [#/volume] in Blood by Automated count 479 cells/uL 200-9 50 Absolute Monocytes JON[facility]AN ([facility]) Neutrophils/100 leukocytes in Blood by Automated count 53 % 38- 80 Neutrophils JON[facility]AN ([facility]) Basophils [#/volume] in Blood by Automated count 29 cells/uL 0-200 Absolute Basophils [facility]AN ([facility]) Monocytes/100 leukocytes in Blood by Automated count 8.4 % 0-13 Monocytes J[facility]AN ([facility]) Eosinophils/100 leukocytes in Blood by Automated count 2.8 % 0-8 Eosinophils J[facility] ([facility]) Lymphocytes/100 leukocytes in Blood by Automated count 35.3 % 15-49 Lymphocytes [facility]AN ([facility]) Basophils/100 leukocytes in Blood by Automated count 0.5 % 0-2 Basophils [facility] ([facility]) ID Date Data Source [id number] 01/06/2021 10:42:00 AM EDT [facility] ([facility]) Name Value Range Interpretation Code Description Data Angela rce(s) Supporting Document(s) Bacteria identified in Urine by Culture Reflexive Urine Culture [facility]) ID Date Data Source [id number] 01/06/2021 10:42:00 AM EDT [facility] ([facility]) Name Value Range Interpretation Code Description Data Angela rce(s) Supporting Document(s) Color of Urine yellow yellow Color JONATAN ([facility]) Appearance of Urine cloudy clear Abnormal (applies to non-numeric results) Appearance [facility]ON[facility]AN ([facility]) Specific gravity of Urine by Test strip 1.001-1.035 Specific Barry [facility] [facility] pH of Urine by Test strip 5.0-8.0 Ph FARWELL ([facility]) Bilirubin.total [Presence] in Urine by Test strip negative negative Bilirubin JONATAN ([facility]) Glucose [Presence] in Urine by Test strip trace negati ve Abnormal (applies to non-numeric results) Glucose JONATAN ([facility]) Ketones [Presence] in Urine by Test strip 1+ negati ve Abnormal (applies to non- numeric results) Ketones JONATAN ([facility]) Protein [Presence] in Urine by Test strip negative negative Protein JONATAN ([facility]) Hemoglobin [Presence] in Urine by Test strip negative negative Occult Blood JONATAN ([facility]) Leukocyte esterase [Presence] in Urine by Test strip negative n egative Leukocyte Esterase JONATAN ([facility]) Nitrite [Presence] in Urine by Test strip negative negative Nitrite JONATAN ([facility]) Leukocytes [#/area] in Urine sediment by Microscopy high pow er field 0-5 < or = 5 Wbc JONATAN ([facility]) Erythrocytes [#/area] in Urine sediment by Microscopy high p ower field 0-2 < or = 2 Rbc JONATAN ([facility]) Epithelial cells.squamous [#/area] in Ur ine sediment by Microscopy high power field 6-10 < or = 5 Abnormal (applies to non-numeric results) Squamous Epithelial Cells JONATAN ([facility]) Bacteria [#/area] in Urine sediment by Microscopy high power field none seen none seen Bacteria JONATAN ([facility]) Calcium oxalate crystals [#/area] in Uri ne sediment by Microscopy high power field many none or few Abnormal (applies to non-numeric results) Calcium Oxalate Crystals JONATAN ([facility]) Hyaline casts [#/area] in Urine sediment by Microscopy low p ower field 0-1 none seen Abnormal (applies to non-numeric results) Hyaline Cast JONATAN ([facility]) Granular casts [#/area] in Urine sediment by Microscopy low power field 0-1 none seen Abnormal (applies to non-numeric results) Granular Cast JONATAN ([facility]) ID Date Data Source [id number] 01/06/2021 10:42:00 AM EDT FARWELL ([facility]) Name Value Range Interpretation Code Description Data Angela rce(s) Supporting Document(s) Microalbumin [Mass/volume] in Urine 2.2 mg/dL see note: Albumin, Urine JONATAN ([facility]) Service comment Lito JONATAN ([facility]) ID Date Data Source [id number] 01/06/2021 10:42:00 AM EDT [facility]) Name Value Range Interpretation Code Description Data Angela rce(s) Supporting Document(s) Glucose [Mass/volume] in Serum or Plasma 174 mg/dL 65-99 Above high normal Glucose JONATAN ([facility]) Urea nitrogen [Mass/volume] in Serum or Plasma 14 mg/dL 7-25 Urea Nitrogen (BUN) JONATAN ([facility]) Glomerular filtration rate/1.73 sq M.pre dicted among non-blacks [Volume Rate/Area] in Serum, Plasma or Blood by Creatinine-based formula (CKD-EPI) 109 mL/min/1.73m2 > or = 60 eGFR Non-afr. Cypriot JONATAN ([facility]) Creatinine [Mass/volume] in Serum or Plasma 0.70 mg/dL 0.50-1.10 Creatinine JONATAN ([facility]) Urea nitrogen/Creatinine [Mass Ratio] in Serum or Plasma not applic able 6-22 BUN/creatinine Ratio JONATAN ([facility]) Glomerular filtration rate/1.73 sq M.pre dicted among blacks [Volume Rate/Area] in Serum, Plasma or Blood by Creatinine-based formula (CKD-EPI) 126 mL/min/1.73m2 > or = 60 eGFR JONATAN ([facility]) Sodium [Moles/volume] in Serum or Plasma 134 mmol/L 135-146 Below low normal Sodium JONATAN ([facility]) Potassium [Moles/volume] in Serum or Plasma 4.4 mmol/L 3.5-5.3 Potassium JONATAN ([facility]) Carbon dioxide, total [Moles/volume] in Serum or Plasma 23 mmol/L 20-32 Carbon Dioxide JONATAN ([facility]) Chloride [Moles/volume] in Serum or Plasma 99 mmol/L 98-110 Chloride JONATAN ([facility]) Calcium [Mass/volume] in Serum or Plasma 8.6 mg/dL 8.6-10.2 Calcium JONATAN ([facility]) Protein [Mass/volume] in Serum or Plasma 7.2 g/dL 6.1-8.1 Protein, Total JONATAN ([facility]) Albumin [Mass/volume] in Serum or Plasma 4.1 g/dL 3.6-5.1 Albumin [facility]) Globulin [Mass/volume] in Serum by calculation 3.1 g/dL_(calc) 1.9- 3.7 Globulin JONATAN ([facility]) Bilirubin.total [Mass/volume] in Serum or Plasma 0.5 mg/dL 0.2-1 .2 Bilirubin, Total JONATAN ([facility]) Albumin/Globulin [Mass Ratio] in Serum or Plasma 1.3 (calc) 1.0-2 .5 Albumin/globulin Ratio JONATAN ([facility]) Aspartate aminotransferase [Enzymatic activity/volume] in Serum or Plasma 29 U/L 10-30 Ast JONATAN ([facility]) Alkaline phosphatase [Enzymatic activity/volume] in Serum or Plasma 93 U/L 31-125 Alkaline Phosphatase JONATAN ([facility]) Alanine aminotransferase [Enzymatic activity/volume] in Seru m or Plasma 35 U/L 6-29 Above high normal Alt JONATAN ([facility]) ID Date Data Source [id number] 01/06/2021 10:42:00 AM EDT FARWELL ([facility]) Name Value Range Interpretation Code Description Data Angela rce(s) Supporting Document(s) Thyrotropin [Units/volume] in Serum or Plasma 2.59 mIU/L Tsh JONATAN ([facility]) Thyroxine (T4) free [Mass/volume] in Serum or Plasma 1.3 NG/dL 0 .8-1.8 [facility] ID Date Data Source [id number] 01/06/2021 10:42:00 AM EDT FARWELL ([facility]) Name Value Range Interpretation Code Description Data Angela rce(s) Supporting Document(s) Cholesterol [Mass/volume] in Serum or Plasma 169 mg/dL <200 Cholesterol, Total JONATAN ([facility]) Cholesterol in HDL [Mass/volume] in Serum or Plasma 39 mg/dL > or = 50 Below low normal HDL Cholesterol JONATAN ([facility]) Cholesterol in LDL [Mass/volume] in Serum or Plasma by calculation 99 mg/dL_(calc) <100 LDL-cholesterol JONATAN ([facility]) Triglyceride [Mass/volume] in Serum or Plasma 193 mg/dL <150 Above high normal Triglycerides JONATAN ([facility]) Cholesterol.total/Cholesterol in HDL [Mass Ratio] in Serum o r Plasma 4.3 calc <5.0 Chol/hdlc Ratio JONATAN ([facility]) Cholesterol non HDL [Mass/volume] in Serum or Plasma 130 mg/dL_( calc) <130 Above high normal Non HDL Cholesterol JONATAN ([facility]) ID Date Data Source [id number] 01/06/2021 10:42:00 AM EDT [facility]) Name Value Range Interpretation Code Description Data Angela rce(s) Supporting Document(s) Hemoglobin A1c/Hemoglobin.total in Blood 7.7 %_of_total_HGB <5.7 Above high normal Hemoglobin a1C FARWELL ([facility]) ID Date Data Source [id number] 01/06/2021 10:42:00 AM EDT JONATAN ([facility]) Name Value Range Interpretation Code Description Data Angela rce(s) Supporting Document(s) Calcidiol [Mass/volume] in Serum or Plasma 20 NG/mL 30-100 Below low normal Vitamin D,25-Oh,total,ia [facility]) ID Date Data Source [id number] 01/06/2021 10:42:00 AM EDT [facility]) Name Value Range Interpretation Code Description Data Angela rce(s) Supporting Document(s) Leukocytes [#/volume] in Blood by Automated count 5.7 thousand/uL 3 .8-10.8 White Blood Cell Count JONATAN ([facility]) Hematocrit [Volume Fraction] of Blood by Automated count 42.5 % 35.0-45.0 Hematocrit JONATAN ([facility]) Erythrocytes [#/volume] in Blood by Automated count 5.20 million /uL 3.80-5.10 Above high normal Red Blood Cell Count FARWELL ([facility]) Hemoglobin [Mass/volume] in Blood 13.4 g/dL 11.7-15.5 He moglobin JONATAN ([facility]) Erythrocyte mean corpuscular volume [Entitic volume] by Auto mated count 81.7 fL 80.0-100.0 Mcv JONATAN ([facility]) Erythrocyte mean corpuscular hemoglobin concentration [Mass/volume] by Automated count 31.5 g/dL 32.0-36.0 Below low normal Mchc JONATAN ([facility]) Erythrocyte mean corpuscular hemoglobin [Entitic mass] by Automated count 25.8 pg 27.0-33.0 Below low normal Mch JONATAN ([facility]) Platelets [#/volume] in Blood by Automated count 261 thousand/uL 14 0-400 Platelet Count JONATAN ([facility]) Platelet mean volume [Entitic volume] in Blood by Josi 10.7 f L 7.5-12.5 Mpv JONATAN ([facility]) Erythrocyte distribution width [Ratio] by Automated count 14.0 % 11.0-15.0 Rdw JONATAN ([facility]) Neutrophils [#/volume] in Blood by Automated count 3021 cells/uL 15 00-7800 Absolute Neutrophils JONATAN ([facility]) Monocytes [#/volume] in Blood by Automated count 479 cells/uL 200-9 50 Absolute Monocytes JONATAN ([facility]) Lymphocytes [#/volume] in Blood by Automated count 2012 cells/uL 85 0-3900 Absolute Lymphocytes JONATAN ([facility]) Lymphocytes/100 leukocytes in Blood by Automated count 35.3 % 15-49 Lymphocytes JONATAN ([facility]) Eosinophils [#/volume] in Blood by Automated count 160 cells/uL 15- 500 Absolute Eosinophils JONATAN ([facility]) Basophils [#/volume] in Blood by Automated count 29 cells/uL 0-200 Absolute Basophils JONATAN ([facility]) Neutrophils/100 leukocytes in Blood by Automated count 53 % 38- 80 Neutrophils JONATAN ([facility]) Basophils/100 leukocytes in Blood by Automated count 0.5 % 0-2 Basophils JONATAN ([facility]) Monocytes/100 leukocytes in Blood by Automated count 8.4 % 0-13 Monocytes JONATAN ([facility]) Eosinophils/100 leukocytes in Blood by Automated count 2.8 % 0-8 Eosinophils JONATAN ([facility]) ID Date Data Source [id number] 01/06/2021 10:42:00 AM EDT FARWELL ([facility]) Name Value Range Interpretation Code Description Data Anglea rce(s) Supporting Document(s) Bacteria identified in Urine by Culture Reflexive Urine Culture F[facility]WELL ([facility]) ID Date Data Source [id number] 01/06/2021 10:42:00 AM EDT F[place]WELL ([facility]) Name Value Range Interpretation Code Description Data Angela rce(s) Supporting Document(s) Color of Urine yellow yellow Color JONATAN ([facility]) Appearance of Urine cloudy clear Abnormal (applies to non-numeric results) Appearance FARWELL ([facility]) pH of Urine by Test strip 5.0-8.0 Ph FARWELL ([facility]) Specific gravity of Urine by Test strip 1.001-1.035 Specific Barry JONATAN ([facility]) Bilirubin.total [Presence] in Urine by Test strip negative negative Bilirubin JONATAN ([facility]) Glucose [Presence] in Urine by Test strip trace negati ve Abnormal (applies to non-numeric results) Glucose JONATAN ([facility]) Ketones [Presence] in Urine by Test strip 1+ negati ve Abnormal (applies to non- numeric results) Ketones JONATAN ([facility]) Protein [Presence] in Urine by Test strip negative negative Protein JONATAN ([facility]) Hemoglobin [Presence] in Urine by Test strip negative negative Occult Blood JONATAN ([facility]) Nitrite [Presence] in Urine by Test strip negative negative Nitrite JONATAN ([facility]) Leukocytes [#/area] in Urine sediment by Microscopy high pow er field 0-5 < or = 5 Wbc JONATAN ([facility]) Leukocyte esterase [Presence] in Urine by Test strip negative n egative Leukocyte Esterase JONATAN ([facility]) Epithelial cells.squamous [#/area] in Ur ine sediment by Microscopy high power field 6-10 < or = 5 Abnormal (applies to non-numeric results) Squamous Epithelial Cells JONATAN ([facility]) Bacteria [#/area] in Urine sediment by Microscopy high power field none seen none seen Bacteria JONATAN ([facility]) Erythrocytes [#/area] in Urine sediment by Microscopy high p ower field 0-2 < or = 2 Rbc JONATAN ([facility]) Granular casts [#/area] in Urine sediment by Microscopy low power field 0-1 none seen Abnormal (applies to non-numeric results) Granular Cast JONATAN ([facility]) Hyaline casts [#/area] in Urine sediment by Microscopy low p ower field 0-1 none seen Abnormal (applies to non-numeric results) Hyaline Cast JONATAN ([facility]) Calcium oxalate crystals [#/area] in Uri ne sediment by Microscopy high power field many none or few Abnormal (applies to non-numeric results) Calcium Oxalate Crystals FARWELL ([facility]) ID Date Data Source [id number] 01/06/2021 10:42:00 AM EDT FARWELL ([facility]) Name Value Range Interpretation Code Description Data Angela rce(s) Supporting Document(s) Service comment Lito FARWELL ([facility]) Microalbumin [Mass/volume] in Urine 2.2 mg/dL see note: Albumin, Urine F[place]WELL ([facility]) ID Date Data Source [id number] 01/06/2021 10:42:00 AM EDT F[place]WELL ([facility]) Name Value Range Interpretation Code Description Data Angela rce(s) Supporting Document(s) Urea nitrogen [Mass/volume] in Serum or Plasma 14 mg/dL 7-25 Urea Nitrogen (BUN) JONATAN ([facility]) Glucose [Mass/volume] in Serum or Plasma 174 mg/dL 65-99 Above high normal Glucose JONATAN ([facility]) Creatinine [Mass/volume] in Serum or Plasma 0.70 mg/dL 0.50-1.10 Creatinine JONATAN ([facility]) Glomerular filtration rate/1.73 sq M.pre dicted among blacks [Volume Rate/Area] in Serum, Plasma or Blood by Creatinine-based formula (CKD-EPI) 126 mL/min/1.73m2 > or = 60 eGFR JONATAN ([facility]) Glomerular filtration rate/1.73 sq M.pre dicted among non-blacks [Volume Rate/Area] in Serum, Plasma or Blood by Creatinine-based formula (CKD-EPI) 109 mL/min/1.73m2 > or = 60 eGFR Non-afr. Cypriot JONATAN ([facility]) Sodium [Moles/volume] in Serum or Plasma 134 mmol/L 135-146 Below low normal Sodium JONATAN ([facility]) Urea nitrogen/Creatinine [Mass Ratio] in Serum or Plasma not applic able 6-22 BUN/creatinine Ratio JONATAN ([facility]) Potassium [Moles/volume] in Serum or Plasma 4.4 mmol/L 3.5-5.3 Potassium FARWELL ([facility]) Chloride [Moles/volume] in Serum or Plasma 99 mmol/L 98-110 Chloride JONATAN ([facility]) Carbon dioxide, total [Moles/volume] in Serum or Plasma 23 mmol/L 20-32 Carbon Dioxide FARWELL ([facility]) Albumin [Mass/volume] in Serum or Plasma 4.1 g/dL 3.6-5.1 Albumin [facility]WELL ([facility]) Calcium [Mass/volume] in Serum or Plasma 8.6 mg/dL 8.6-10.2 Calcium [facility]) Protein [Mass/volume] in Serum or Plasma 7.2 g/dL 6.1-8.1 Protein, Total F[place]WELL ([facility]) Albumin/Globulin [Mass Ratio] in Serum or Plasma 1.3 (calc) 1.0-2 .5 Albumin/globulin Ratio FARWELL ([facility]) Bilirubin.total [Mass/volume] in Serum or Plasma 0.5 mg/dL 0.2-1 .2 Bilirubin, Total [facility]) Globulin [Mass/volume] in Serum by calculation 3.1 g/dL_(calc) 1.9- 3.7 Globulin JONATAN ([facility]) Aspartate aminotransferase [Enzymatic activity/volume] in Serum or Plasma 29 U/L 10-30 Ast JONATAN ([facility]) Alkaline phosphatase [Enzymatic activity/volume] in Serum or Plasma 93 U/L 31-125 Alkaline Phosphatase JONATAN ([facility]) Alanine aminotransferase [Enzymatic activity/volume] in Seru m or Plasma 35 U/L 6-29 Above high normal Alt JONATAN ([facility]) ID Date Data Source [id number] 01/06/2021 10:42:00 AM EDT JONATAN ([facility]) Name Value Range Interpretation Code Description Data Angela rce(s) Supporting Document(s) Thyrotropin [Units/volume] in Serum or Plasma 2.59 mIU/L Tsh JONATAN ([facility]) Thyroxine (T4) free [Mass/volume] in Serum or Plasma 1.3 NG/dL 0 .8-1.8 T4, Free JONATAN ([facility]) ID Date Data Source [id number] 01/06/2021 10:42:00 AM EDT JONATAN ([facility]) Name Value Range Interpretation Code Description Data Angela rce(s) Supporting Document(s) Cholesterol [Mass/volume] in Serum or Plasma 169 mg/dL <200 Cholesterol, Total JONATAN ([facility]) Triglyceride [Mass/volume] in Serum or Plasma 193 mg/dL <150 Above high normal Triglycerides JONATAN ([facility]) Cholesterol in LDL [Mass/volume] in Serum or Plasma by calculation 99 mg/dL_(calc) <100 LDL-cholesterol JONATAN ([facility]) Cholesterol in HDL [Mass/volume] in Serum or Plasma 39 mg/dL > or = 50 Below low normal HDL Cholesterol JONATAN ([facility]) Cholesterol non HDL [Mass/volume] in Serum or Plasma 130 mg/dL_( calc) <130 Above high normal Non HDL Cholesterol JONATAN ([facility]) Cholesterol.total/Cholesterol in HDL [Mass Ratio] in Serum o r Plasma 4.3 calc <5.0 Chol/hdlc Ratio JONATAN ([facility]) ID Date Data Source [id number] 01/06/2021 10:42:00 AM EDT [facility]) Name Value Range Interpretation Code Description Data Angela rce(s) Supporting Document(s) Hemoglobin A1c/Hemoglobin.total in Blood 7.7 %_of_total_HGB <5.7 Above high normal Hemoglobin a1C [facility]LL ([facility]) ID Date Data Source [id number] 01/06/2021 10:42:00 AM EDT [facility]) Name Value Range Interpretation Code Description Data Angela rce(s) Supporting Document(s) Calcidiol [Mass/volume] in Serum or Plasma 20 NG/mL 30-100 Below low normal Vitamin D,25-Oh,total,ia [facility]) ID Date Data Source [id number] 01/06/2021 10:42:00 AM EDT [facility]) Name Value Range Interpretation Code Description Data Angela rce(s) Supporting Document(s) Leukocytes [#/volume] in Blood by Automated count 5.7 thousand/uL 3 .8-10.8 White Blood Cell Count FARWELL ([facility]) Erythrocytes [#/volume] in Blood by Automated count 5.20 million /uL 3.80-5.10 Above high normal Red Blood Cell Count JONATAN ([facility]) Erythrocyte mean corpuscular volume [Entitic volume] by Auto mated count 81.7 fL 80.0-100.0 Mcv JONATAN ([facility]) Hematocrit [Volume Fraction] of Blood by Automated count 42.5 % 35.0-45.0 Hematocrit JONATAN ([facility]) Hemoglobin [Mass/volume] in Blood 13.4 g/dL 11.7-15.5 He moglobin JONATAN ([facility]) Erythrocyte mean corpuscular hemoglobin concentration [Mass/volume] by Automated count 31.5 g/dL 32.0-36.0 Below low normal Mchc JONATAN ([facility]) Erythrocyte mean corpuscular hemoglobin [Entitic mass] by Automated count 25.8 pg 27.0-33.0 Below low normal Mch JONATAN ([facility]) Erythrocyte distribution width [Ratio] by Automated count 14.0 % 11.0-15.0 Rdw JONATAN ([facility]) Platelets [#/volume] in Blood by Automated count 261 thousand/uL 14 0-400 Platelet Count JONATAN ([facility]) Neutrophils [#/volume] in Blood by Automated count 3021 cells/uL 15 00-7800 Absolute Neutrophils JONATAN ([facility]) Platelet mean volume [Entitic volume] in Blood by Cj-Cecilio 10.7 f L 7.5-12.5 Mpv JONATAN ([facility]) Lymphocytes [#/volume] in Blood by Automated count 2012 cells/uL 85 0-3900 Absolute Lymphocytes JONATAN ([facility]) Monocytes [#/volume] in Blood by Automated count 479 cells/uL 200-9 50 Absolute Monocytes JONATAN ([facility]) Basophils [#/volume] in Blood by Automated count 29 cells/uL 0-200 Absolute Basophils JONATAN ([facility]) Eosinophils [#/volume] in Blood by Automated count 160 cells/uL 15- 500 Absolute Eosinophils JONATAN ([facility]) Neutrophils/100 leukocytes in Blood by Automated count 53 % 38- 80 Neutrophils JONATAN ([facility]) Lymphocytes/100 leukocytes in Blood by Automated count 35.3 % 15-49 Lymphocytes JONATAN ([facility]) Basophils/100 leukocytes in Blood by Automated count 0.5 % 0-2 Basophils JONATAN ([facility]) Eosinophils/100 leukocytes in Blood by Automated count 2.8 % 0-8 Eosinophils JONATAN ([facility]) Monocytes/100 leukocytes in Blood by Automated count 8.4 % 0-13 Monocytes JONATAN ([facility]) ID Date Data Source [id number] 01/06/2021 10:42:00 AM EDT F[place]WELL ([facility]) Name Value Range Interpretation Code Description Data Angela rce(s) Supporting Document(s) Bacteria identified in Urine by Culture Reflexive Urine Culture JONATAN ([facility]) ID Date Data Source [id number] 01/06/2021 10:42:00 AM EDT JONATAN ([facility]) Name Value Range Interpretation Code Description Data Angela rce(s) Supporting Document(s) Appearance of Urine cloudy clear Abnormal (applies to non-numeric results) Appearance JONATAN ([facility]) Color of Urine yellow yellow Color JONATAN ([facility]) Specific gravity of Urine by Test strip 1.001-1.035 Specific Barry JONATAN ([facility]) pH of Urine by Test strip 5.0-8.0 Ph JONATAN ([facility]) Bilirubin.total [Presence] in Urine by Test strip negative negative Bilirubin JONATAN ([facility]) Glucose [Presence] in Urine by Test strip trace negati ve Abnormal (applies to non-numeric results) Glucose JONATAN ([facility]) Ketones [Presence] in Urine by Test strip 1+ negati ve Abnormal (applies to non- numeric results) Ketones JONATAN ([facility]) Hemoglobin [Presence] in Urine by Test strip negative negative Occult Blood JONATAN ([facility]) Nitrite [Presence] in Urine by Test strip negative negative Nitrite JONATAN ([facility]) Protein [Presence] in Urine by Test strip negative negative Protein JONATAN ([facility]) Leukocyte esterase [Presence] in Urine by Test strip negative n egative Leukocyte Esterase JONATAN ([facility]) Leukocytes [#/area] in Urine sediment by Microscopy high [place] field 0-5 < or = 5 Wbc JONATAN ([facility]) Erythrocytes [#/area] in Urine sediment by Microscopy high p [place]wer field 0-2 < or = 2 Rbc JONATAN ([facility]) Bacteria [#/area] in Urine sediment by Microscopy high power field none seen none seen Bacteria JONATAN ([facility]) Epithelial cells.squamous [#/area] in Ur ine sediment by Microscopy high power field 6-10 < or = 5 Abnormal (applies to non-numeric results) Squamous Epithelial Cells JONATAN ([facility]) Calcium oxalate crystals [#/area] in Uri ne sediment by Microscopy high power field many none or few Abnormal (applies to non-numeric results) Calcium Oxalate Crystals JONATAN ([facility]) Hyaline casts [#/area] in Urine sediment by Microscopy low p ower field 0-1 none seen Abnormal (applies to non-numeric results) Hyaline Cast JONATAN ([facility]) Granular casts [#/area] in Urine sediment by Microscopy low power field 0-1 none seen Abnormal (applies to non-numeric results) Granular Cast FARWELL ([facility]) ID Date Data Source [id number] 01/06/2021 10:42:00 AM EDT [facility]) Name Value Range Interpretation Code Description Data Angela rce(s) Supporting Document(s) Microalbumin [Mass/volume] in Urine 2.2 mg/dL see note: Albumin, Urine [facility]) Service comment Lito FARWELL ([facility]) ID Date Data Source [id number] 01/06/2021 10:42:00 AM EDT [facility]) Name Value Range Interpretation Code Description Data Angela rce(s) Supporting Document(s) Glucose [Mass/volume] in Serum or Plasma 174 mg/dL 65-99 Above high normal Glucose JONATAN ([facility]) Urea nitrogen [Mass/volume] in Serum or Plasma 14 mg/dL 7-25 Urea Nitrogen (BUN) [facility]) Creatinine [Mass/volume] in Serum or Plasma 0.70 mg/dL 0.50-1.10 Creatinine JONATAN ([facility]) Glomerular filtration rate/1.73 sq M.pre dicted among non-blacks [Volume Rate/Area] in Serum, Plasma or Blood by Creatinine-based formula (CKD-EPI) 109 mL/min/1.73m2 > or = 60 eGFR Non-afr. Cypriot JONATAN ([facility]) Urea nitrogen/Creatinine [Mass Ratio] in Serum or Plasma not applic able 6-22 BUN/creatinine Ratio [facility]) Glomerular filtration rate/1.73 sq M.pre dicted among blacks [Volume Rate/Area] in Serum, Plasma or Blood by Creatinine-based formula (CKD-EPI) 126 mL/min/1.73m2 > or = 60 eGFR JONATAN ([facility]) Potassium [Moles/volume] in Serum or Plasma 4.4 mmol/L 3.5-5.3 Potassium JONATAN ([facility]) Sodium [Moles/volume] in Serum or Plasma 134 mmol/L 135-146 Below low normal Sodium JONATAN ([facility]) Chloride [Moles/volume] in Serum or Plasma 99 mmol/L 98-110 Chloride FARWELL ([facility]) Carbon dioxide, total [Moles/volume] in Serum or Plasma 23 mmol/L 20-32 Carbon Dioxide JONATAN ([facility]) Calcium [Mass/volume] in Serum or Plasma 8.6 mg/dL 8.6-10.2 Calcium [facility]) Protein [Mass/volume] in Serum or Plasma 7.2 g/dL 6.1-8.1 Protein, Total FARWELL ([facility]) Globulin [Mass/volume] in Serum by calculation 3.1 g/dL_(calc) 1.9- 3.7 Globulin FARWELL ([facility]) Albumin [Mass/volume] in Serum or Plasma 4.1 g/dL 3.6-5.1 Albumin FARWELL ([facility]) Albumin/Globulin [Mass Ratio] in Serum or Plasma 1.3 (calc) 1.0-2 .5 Albumin/globulin Ratio FARWELL ([facility]) Bilirubin.total [Mass/volume] in Serum or Plasma 0.5 mg/dL 0.2-1 .2 Bilirubin, Total JONATAN ([facility]) Aspartate aminotransferase [Enzymatic activity/volume] in Serum or Plasma 29 U/L 10-30 Ast JONATAN ([facility]) Alkaline phosphatase [Enzymatic activity/volume] in Serum or Plasma 93 U/L 31-125 Alkaline Phosphatase FARWELL ([facility]) Alanine aminotransferase [Enzymatic activity/volume] in Seru m or Plasma 35 U/L 6-29 Above high normal Alt FARWELL ([facility]) ID Date Data Source [id number] 01/06/2021 10:42:00 AM EDT JONATAN ([facility]) Name Value Range Interpretation Code Description Data Angela rce(s) Supporting Document(s) Thyrotropin [Units/volume] in Serum or Plasma 2.59 mIU/L Tsh JONATAN ([facility]) Thyroxine (T4) free [Mass/volume] in Serum or Plasma 1.3 NG/dL 0 .8-1.8 T4, Free JONATAN ([facility]) ID Date Data Source [id number] 01/06/2021 10:42:00 AM EDT FARWELL ([facility]) Name Value Range Interpretation Code Description Data Angela rce(s) Supporting Document(s) Cholesterol [Mass/volume] in Serum or Plasma 169 mg/dL <200 Cholesterol, Total JONATAN ([facility]) Cholesterol in HDL [Mass/volume] in Serum or Plasma 39 mg/dL > or = 50 Below low normal HDL Cholesterol JONATAN ([facility]) Triglyceride [Mass/volume] in Serum or Plasma 193 mg/dL <150 Above high normal Triglycerides JONATAN ([facility]) Cholesterol.total/Cholesterol in HDL [Mass Ratio] in Serum o r Plasma 4.3 calc <5.0 Chol/hdlc Ratio JONATAN ([facility]) Cholesterol in LDL [Mass/volume] in Serum or Plasma by calculation 99 mg/dL_(calc) <100 LDL-cholesterol JONATAN ([facility]) Cholesterol non HDL [Mass/volume] in Serum or Plasma 130 mg/dL_( calc) <130 Above high normal Non HDL Cholesterol JONATAN ([facility]) ID Date Data Source [id number] 01/06/2021 10:42:00 AM EDT JONATAN ([facility]) Name Value Range Interpretation Code Description Data Angela rce(s) Supporting Document(s) Hemoglobin A1c/Hemoglobin.total in Blood 7.7 %_of_total_HGB <5.7 Above high normal Hemoglobin a1C JONATAN ([facility]) ID Date Data Source [id number] 01/06/2021 10:42:00 AM EDT FARWELL ([facility]) Name Value Range Interpretation Code Description Data Angela rce(s) Supporting Document(s) Calcidiol [Mass/volume] in Serum or Plasma 20 NG/mL 30-100 Below low normal Vitamin D,25-Oh,total,ia FARWELL ([facility]) ID Date Data Source [id number] 01/06/2021 10:42:00 AM EDT FARWELL ([facility]) Name Value Range Interpretation Code Description Data Angela rce(s) Supporting Document(s) Erythrocytes [#/volume] in Blood by Automated count 5.20 million /uL 3.80-5.10 Above high normal Red Blood Cell Count JONATAN ([facility]) Leukocytes [#/volume] in Blood by Automated count 5.7 thousand/uL 3 .8-10.8 White Blood Cell Count FARWELL ([facility]) Hemoglobin [Mass/volume] in Blood 13.4 g/dL 11.7-15.5 He moglobin JONATAN ([facility]) Hematocrit [Volume Fraction] of Blood by Automated count 42.5 % 35.0-45.0 Hematocrit FARWELL ([facility]) Erythrocyte mean corpuscular volume [Entitic volume] by Auto mated count 81.7 fL 80.0-100.0 Mcv JONATAN ([facility]) Erythrocyte mean corpuscular hemoglobin [Entitic mass] by Automated count 25.8 pg 27.0-33.0 Below low normal Mch JONATAN ([facility]) Erythrocyte distribution width [Ratio] by Automated count 14.0 % 11.0-15.0 Rdw JONATAN ([facility]) Erythrocyte mean corpuscular hemoglobin concentration [Mass/volume] by Automated count 31.5 g/dL 32.0-36.0 Below low normal Mchc JONATAN ([facility]) Platelet mean volume [Entitic volume] in Blood by Josi 10.7 f L 7.5-12.5 Mpv JONATAN ([facility]) Platelets [#/volume] in Blood by Automated count 261 thousand/uL 14 0-400 Platelet Count JONATAN ([facility]) Neutrophils [#/volume] in Blood by Automated count 3021 cells/uL 15 00-7800 Absolute Neutrophils JONATAN ([facility]) Lymphocytes [#/volume] in Blood by Automated count 2012 cells/uL 85 0-3900 Absolute Lymphocytes JONATAN ([facility]) Monocytes [#/volume] in Blood by Automated count 479 cells/uL 200-9 50 Absolute Monocytes JONATAN ([facility]) Basophils [#/volume] in Blood by Automated count 29 cells/uL 0-200 Absolute Basophils JONATAN ([facility]) Eosinophils [#/volume] in Blood by Automated count 160 cells/uL 15- 500 Absolute Eosinophils JONATAN ([facility]) Lymphocytes/100 leukocytes in Blood by Automated count 35.3 % 15-49 Lymphocytes JONATAN ([facility]) Neutrophils/100 leukocytes in Blood by Automated count 53 % 38- 80 Neutrophils JONATAN ([facility]) Monocytes/100 leukocytes in Blood by Automated count 8.4 % 0-13 Monocytes JONATAN ([facility]) Eosinophils/100 leukocytes in Blood by Automated count 2.8 % 0-8 Eosinophils JONATAN ([facility]) Basophils/100 leukocytes in Blood by Automated count 0.5 % 0-2 Basophils JONATAN ([facility]) ID Date Data Source [id number] 01/06/2021 10:42:00 AM EDT [facility]) Name Value Range Interpretation Code Description Data Angela rce(s) Supporting Document(s) Bacteria identified in Urine by Culture Reflexive Urine Culture [facility]) ID Date Data Source [id number] 01/06/2021 10:42:00 AM EDT [facility]) Name Value Range Interpretation Code Description Data Angela rce(s) Supporting Document(s) Color of Urine yellow yellow Color JONATAN ([facility]) Appearance of Urine cloudy clear Abnormal (applies to non-numeric results) Appearance JONATAN ([facility]) pH of Urine by Test strip 5.0-8.0 Ph JONATAN ([facility]) Specific gravity of Urine by Test strip 1.001-1.035 Specific Barry JONATAN ([facility]) Bilirubin.total [Presence] in Urine by Test strip negative negative Bilirubin JONATAN ([facility]) Glucose [Presence] in Urine by Test strip trace negati ve Abnormal (applies to non-numeric results) Glucose JONATAN ([facility]) Ketones [Presence] in Urine by Test strip 1+ negati ve Abnormal (applies to non- numeric results) Ketones JONATAN ([facility]) Protein [Presence] in Urine by Test strip negative negative Protein JONATAN ([facility]) Hemoglobin [Presence] in Urine by Test strip negative negative Occult Blood JONATAN ([facility]) Nitrite [Presence] in Urine by Test strip negative negative Nitrite JONATAN ([facility]) Leukocyte esterase [Presence] in Urine by Test strip negative n egative Leukocyte Esterase JONATAN ([facility]) Leukocytes [#/area] in Urine sediment by Microscopy high [place] field 0-5 < or = 5 Wbc JONATAN ([facility]) Erythrocytes [#/area] in Urine sediment by Microscopy high p ower field 0-2 < or = 2 Rbc JONATAN ([facility]) Epithelial cells.squamous [#/area] in Ur ine sediment by Microscopy high power field 6-10 < or = 5 Abnormal (applies to non-numeric results) Squamous Epithelial Cells JONATAN ([facility]) Calcium oxalate crystals [#/area] in Uri ne sediment by Microscopy high power field many none or few Abnormal (applies to non-numeric results) Calcium Oxalate Crystals JONATAN ([facility]) Bacteria [#/area] in Urine sediment by Microscopy high power field none seen none seen Bacteria JONATAN ([facility]) Granular casts [#/area] in Urine sediment by Microscopy low power field 0-1 none seen Abnormal (applies to non-numeric results) Granular Cast JONATAN ([facility]) Hyaline casts [#/area] in Urine sediment by Microscopy low p ower field 0-1 none seen Abnormal (applies to non-numeric results) Hyaline Cast FARWELL ([facility]) ID Date Data Source [id number] 01/06/2021 10:42:00 AM EDT [facility]) Name Value Range Interpretation Code Description Data Angela rce(s) Supporting Document(s) Microalbumin [Mass/volume] in Urine 2.2 mg/dL see note: Albumin, Urine [facility]) Service comment Lito FARWELL ([facility]) ID Date Data Source [id number] 01/06/2021 10:42:00 AM EDT [facility]) Name Value Range Interpretation Code Description Data Angela rce(s) Supporting Document(s) Glucose [Mass/volume] in Serum or Plasma 174 mg/dL 65-99 Above high normal Glucose [facility]) Creatinine [Mass/volume] in Serum or Plasma 0.70 mg/dL 0.50-1.10 Creatinine [facility]) Urea nitrogen [Mass/volume] in Serum or Plasma 14 mg/dL 7-25 [facility] Glomerular filtration rate/1.73 sq M.pre dicted among blacks [Volume Rate/Area] in Serum, Plasma or Blood by Creatinine-based formula (CKD-EPI) 126 mL/min/1.73m2 > or = 60 eGFR JONATAN ([facility]) Glomerular filtration rate/1.73 sq M.pre dicted among non-blacks [Volume Rate/Area] in Serum, Plasma or Blood by Creatinine-based formula (CKD-EPI) 109 mL/min/1.73m2 > or = 60 eGFR Non-afr. Cypriot JONATAN ([facility]) Urea nitrogen/Creatinine [Mass Ratio] in Serum or Plasma not applic able 6-22 BUN/creatinine Ratio [facility]) Sodium [Moles/volume] in Serum or Plasma 134 mmol/L 135-146 Below low normal Sodium [facility]) Chloride [Moles/volume] in Serum or Plasma 99 mmol/L 98-110 Chloride FARWELL ([facility]) Potassium [Moles/volume] in Serum or Plasma 4.4 mmol/L 3.5-5.3 Potassium JONATAN ([facility]) Carbon dioxide, total [Moles/volume] in Serum or Plasma 23 mmol/L 20-32 Carbon Dioxide JONATAN ([facility]) Calcium [Mass/volume] in Serum or Plasma 8.6 mg/dL 8.6-10.2 Calcium FARWELL ([facility]) Protein [Mass/volume] in Serum or Plasma 7.2 g/dL 6.1-8.1 Protein, Total JONATAN ([facility]) Albumin [Mass/volume] in Serum or Plasma 4.1 g/dL 3.6-5.1 Albumin FARWELL ([facility]) Globulin [Mass/volume] in Serum by calculation 3.1 g/dL_(calc) 1.9- 3.7 Globulin FARWELL ([facility]) Albumin/Globulin [Mass Ratio] in Serum or Plasma 1.3 (calc) 1.0-2 .5 Albumin/globulin Ratio FARWELL ([facility]) Bilirubin.total [Mass/volume] in Serum or Plasma 0.5 mg/dL 0.2-1 .2 Bilirubin, Total JONATAN ([facility]) Alkaline phosphatase [Enzymatic activity/volume] in Serum or Plasma 93 U/L 31-125 Alkaline Phosphatase OJNATAN ([facility]) Aspartate aminotransferase [Enzymatic activity/volume] in Serum or Plasma 29 U/L 10-30 Ast JONATAN ([facility]) Alanine aminotransferase [Enzymatic activity/volume] in Seru m or Plasma 35 U/L 6-29 Above high normal Alt JONATAN ([facility]) ID Date Data Source [id number] 01/06/2021 10:42:00 AM EDT FARWELL ([facility]) Name Value Range Interpretation Code Description Data Angela rce(s) Supporting Document(s) Thyrotropin [Units/volume] in Serum or Plasma 2.59 mIU/L Tsh [facility]) Thyroxine (T4) free [Mass/volume] in Serum or Plasma 1.3 NG/dL 0 .8-1.8 T4, Free JONATAN ([facility]) ID Date Data Source [id number] 01/06/2021 10:42:00 AM EDT FARWELL ([facility]) Name Value Range Interpretation Code Description Data Angela rce(s) Supporting Document(s) Cholesterol [Mass/volume] in Serum or Plasma 169 mg/dL <200 Cholesterol, Total JONATAN ([facility]) Cholesterol in HDL [Mass/volume] in Serum or Plasma 39 mg/dL > or = 50 Below low normal HDL Cholesterol JONATAN ([facility]) Triglyceride [Mass/volume] in Serum or Plasma 193 mg/dL <150 Above high normal Triglycerides JONATAN ([facility]) Cholesterol in LDL [Mass/volume] in Serum or Plasma by calculation 99 mg/dL_(calc) <100 LDL-cholesterol JONATAN ([facility]) Cholesterol.total/Cholesterol in HDL [Mass Ratio] in Serum o r Plasma 4.3 calc <5.0 Chol/hdlc Ratio JONATAN ([facility]) Cholesterol non HDL [Mass/volume] in Serum or Plasma 130 mg/dL_( calc) <130 Above high normal Non HDL Cholesterol FARWELL ([facility]) ID Date Data Source [id number] 01/06/2021 10:42:00 AM EDT [facility]) Name Value Range Interpretation Code Description Data Angela rce(s) Supporting Document(s) Hemoglobin A1c/Hemoglobin.total in Blood 7.7 %_of_total_HGB <5.7 Above high normal Hemoglobin a1C JONATAN ([facility]) ID Date Data Source [id number] 01/06/2021 10:42:00 AM EDT FARWELL ([facility]) Name Value Range Interpretation Code Description Data Angela rce(s) Supporting Document(s) Calcidiol [Mass/volume] in Serum or Plasma 20 NG/mL 30-100 Below low normal Vitamin D,25-Oh,total,ia FARWELL ([facility]) ID Date Data Source [id number] 01/06/2021 10:42:00 AM EDT JONATAN ([facility]) Name Value Range Interpretation Code Description Data Angela rce(s) Supporting Document(s) Leukocytes [#/volume] in Blood by Automated count 5.7 thousand/uL 3 .8-10.8 White Blood Cell Count JONATAN ([facility]) Erythrocytes [#/volume] in Blood by Automated count 5.20 million /uL 3.80-5.10 Above high normal Red Blood Cell Count JONATAN ([facility]) Hemoglobin [Mass/volume] in Blood 13.4 g/dL 11.7-15.5 He moglobin JONATAN ([facility]) Hematocrit [Volume Fraction] of Blood by Automated count 42.5 % 35.0-45.0 Hematocrit JONATAN ([facility]) Erythrocyte mean corpuscular volume [Entitic volume] by Auto mated count 81.7 fL 80.0-100.0 Mcv JONATAN ([facility]) Erythrocyte mean corpuscular hemoglobin concentration [Mass/volume] by Automated count 31.5 g/dL 32.0-36.0 Below low normal Mchc JONATAN ([facility]) Erythrocyte mean corpuscular hemoglobin [Entitic mass] by Automated count 25.8 pg 27.0-33.0 Below low normal Mch JONATAN ([facility]) Erythrocyte distribution width [Ratio] by Automated count 14.0 % 11.0-15.0 Rdw JONATAN ([facility]) Platelet mean volume [Entitic volume] in Blood by Josi 10.7 f L 7.5-12.5 Mpv JONATAN ([facility]) Platelets [#/volume] in Blood by Automated count 261 thousand/uL 14 0-400 Platelet Count JONATAN ([facility]) Monocytes [#/volume] in Blood by Automated count 479 cells/uL 200-9 50 Absolute Monocytes JONATAN ([facility]) Neutrophils [#/volume] in Blood by Automated count 3021 cells/uL 15 00-7800 Absolute Neutrophils JONATAN ([facility]) Lymphocytes [#/volume] in Blood by Automated count 2012 cells/uL 85 0-3900 Absolute Lymphocytes JONATAN ([facility]) Eosinophils [#/volume] in Blood by Automated count 160 cells/uL 15- 500 Absolute Eosinophils JONATAN ([facility]) Basophils [#/volume] in Blood by Automated count 29 cells/uL 0-200 Absolute Basophils JONATAN ([facility]) Neutrophils/100 leukocytes in Blood by Automated count 53 % 38- 80 Neutrophils JONATAN ([facility]) Lymphocytes/100 leukocytes in Blood by Automated count 35.3 % 15-49 Lymphocytes JONATAN ([facility]) Eosinophils/100 leukocytes in Blood by Automated count 2.8 % 0-8 Eosinophils JONATAN ([facility]) Monocytes/100 leukocytes in Blood by Automated count 8.4 % 0-13 Monocytes JONATAN ([facility]) Basophils/100 leukocytes in Blood by Automated count 0.5 % 0-2 Basophils JONATAN ([facility]) ID Date Data Source [id number] 01/06/2021 10:42:00 AM EDT [facility]) Name Value Range Interpretation Code Description Data Angela rce(s) Supporting Document(s) Bacteria identified in Urine by Culture Reflexive Urine Culture [facility]) ID Date Data Source [id number] 01/06/2021 10:42:00 AM EDT [facility]) Name Value Range Interpretation Code Description Data Angela rce(s) Supporting Document(s) Appearance of Urine cloudy clear Abnormal (applies to non-numeric results) Appearance JONATAN ([facility]) Color of Urine yellow yellow Color JONATAN ([facility]) pH of Urine by Test strip 5.0-8.0 Ph JONATAN ([facility]) Specific gravity of Urine by Test strip 1.001-1.035 Specific Barry JONATAN ([facility]) Ketones [Presence] in Urine by Test strip 1+ negati ve Abnormal (applies to non- numeric results) Ketones JONATAN ([facility]) Bilirubin.total [Presence] in Urine by Test strip negative negative Bilirubin JONATAN ([facility]) Glucose [Presence] in Urine by Test strip trace negati ve Abnormal (applies to non-numeric results) Glucose JONATAN ([facility]) Protein [Presence] in Urine by Test strip negative negative Protein JONATAN ([facility]) Hemoglobin [Presence] in Urine by Test strip negative negative Occult Blood JONATAN ([facility]) Nitrite [Presence] in Urine by Test strip negative negative Nitrite JONATAN ([facility]) Leukocytes [#/area] in Urine sediment by Microscopy high pow er field 0-5 < or = 5 Wbc JONATAN ([facility]) Leukocyte esterase [Presence] in Urine by Test strip negative n egative Leukocyte Esterase JONATAN ([facility]) Bacteria [#/area] in Urine sediment by Microscopy high power field none seen none seen Bacteria JONATAN ([facility]) Erythrocytes [#/area] in Urine sediment by Microscopy high p ower field 0-2 < or = 2 Rbc JONATAN ([facility]) Epithelial cells.squamous [#/area] in Ur ine sediment by Microscopy high power field 6-10 < or = 5 Abnormal (applies to non-numeric results) Squamous Epithelial Cells JONATAN ([facility]) Calcium oxalate crystals [#/area] in Uri ne sediment by Microscopy high power field many none or few Abnormal (applies to non-numeric results) Calcium Oxalate Crystals JONATAN ([facility]) Hyaline casts [#/area] in Urine sediment by Microscopy low p ower field 0-1 none seen Abnormal (applies to non-numeric results) Hyaline Cast JONATAN ([facility]) Granular casts [#/area] in Urine sediment by Microscopy low power field 0-1 none seen Abnormal (applies to non-numeric results) Granular Cast JONATAN ([facility]) ID Date Data Source [id number] 01/06/2021 10:42:00 AM EDT FARWELL ([facility]) Name Value Range Interpretation Code Description Data Angela rce(s) Supporting Document(s) Microalbumin [Mass/volume] in Urine 2.2 mg/dL see note: Albumin, Urine F[facility]LL ([facility]) Service comment Lito F[facility]WELL ([facility]) ID Date Data Source [id number] 01/06/2021 10:42:00 AM EDT F[place]WELL ([facility]) Name Value Range Interpretation Code Description Data Angela rce(s) Supporting Document(s) Glucose [Mass/volume] in Serum or Plasma 174 mg/dL 65-99 Above high normal Glucose JONATAN ([facility]) Glomerular filtration rate/1.73 sq M.pre dicted among non-blacks [Volume Rate/Area] in Serum, Plasma or Blood by Creatinine-based formula (CKD-EPI) 109 mL/min/1.73m2 > or = 60 eGFR Non-afr. Cypriot JONATAN ([facility]) Urea nitrogen [Mass/volume] in Serum or Plasma 14 mg/dL 7-25 Urea Nitrogen (BUN) FARWELL ([facility]) Creatinine [Mass/volume] in Serum or Plasma 0.70 mg/dL 0.50-1.10 Creatinine FARWELL ([facility]) Glomerular filtration rate/1.73 sq M.pre dicted among blacks [Volume Rate/Area] in Serum, Plasma or Blood by Creatinine-based formula (CKD-EPI) 126 mL/min/1.73m2 > or = 60 eGFR JONATAN ([facility]) Urea nitrogen/Creatinine [Mass Ratio] in Serum or Plasma not applic able 6-22 BUN/creatinine Ratio FARWELL ([facility]) Potassium [Moles/volume] in Serum or Plasma 4.4 mmol/L 3.5-5.3 Potassium JONATAN ([facility]) Sodium [Moles/volume] in Serum or Plasma 134 mmol/L 135-146 Below low normal Sodium JONATAN ([facility]) Chloride [Moles/volume] in Serum or Plasma 99 mmol/L 98-110 Chloride JONATAN ([facility]) Calcium [Mass/volume] in Serum or Plasma 8.6 mg/dL 8.6-10.2 Calcium JONATAN ([facility]) Carbon dioxide, total [Moles/volume] in Serum or Plasma 23 mmol/L 20-32 Carbon Dioxide JONATAN ([facility]) Globulin [Mass/volume] in Serum by calculation 3.1 g/dL_(calc) 1.9- 3.7 Globulin FARWELL ([facility]) Protein [Mass/volume] in Serum or Plasma 7.2 g/dL 6.1-8.1 Protein, Total JONATAN ([facility]) Albumin [Mass/volume] in Serum or Plasma 4.1 g/dL 3.6-5.1 Albumin F[facility]LL ([facility]) Bilirubin.total [Mass/volume] in Serum or Plasma 0.5 mg/dL 0.2-1 .2 Bilirubin, Total JONATAN ([facility]) Albumin/Globulin [Mass Ratio] in Serum or Plasma 1.3 (calc) 1.0-2 .5 Albumin/globulin Ratio FARWELL ([facility]) Alanine aminotransferase [Enzymatic activity/volume] in Seru m or Plasma 35 U/L 6-29 Above high normal Alt JONATAN ([facility]) Alkaline phosphatase [Enzymatic activity/volume] in Serum or Plasma 93 U/L 31-125 Alkaline Phosphatase JONATAN ([facility]) Aspartate aminotransferase [Enzymatic activity/volume] in Serum or Plasma 29 U/L 10-30 Ast JONATAN ([facility]) ID Date Data Source [id number] 01/06/2021 10:42:00 AM EDT [facility]) Name Value Range Interpretation Code Description Data Angela rce(s) Supporting Document(s) Thyrotropin [Units/volume] in Serum or Plasma 2.59 mIU/L Tsh F[place]WELL ([facility]) Thyroxine (T4) free [Mass/volume] in Serum or Plasma 1.3 NG/dL 0 .8-1.8 T4, Free [facility]) ID Date Data Source [id number] 01/06/2021 10:42:00 AM EDT [facility]) Name Value Range Interpretation Code Description Data Angela rce(s) Supporting Document(s) Cholesterol [Mass/volume] in Serum or Plasma 169 mg/dL <200 Cholesterol, Total JONATAN ([facility]) Cholesterol in HDL [Mass/volume] in Serum or Plasma 39 mg/dL > or = 50 Below low normal HDL Cholesterol JONATAN ([facility]) Triglyceride [Mass/volume] in Serum or Plasma 193 mg/dL <150 Above high normal Triglycerides JONATAN ([facility]) Cholesterol.total/Cholesterol in HDL [Mass Ratio] in Serum o r Plasma 4.3 calc <5.0 Chol/hdlc Ratio JONATAN ([facility]) Cholesterol in LDL [Mass/volume] in Serum or Plasma by calculation 99 mg/dL_(calc) <100 LDL-cholesterol JONATAN ([facility]) Cholesterol non HDL [Mass/volume] in Serum or Plasma 130 mg/dL_( calc) <130 Above high normal Non HDL Cholesterol JONATAN ([facility]) ID Date Data Source [id number] 01/06/2021 10:42:00 AM EDT JONATAN ([facility]) Name Value Range Interpretation Code Description Data Angela rce(s) Supporting Document(s) Hemoglobin A1c/Hemoglobin.total in Blood 7.7 %_of_total_HGB <5.7 Above high normal Hemoglobin a1C JONATAN ([facility]) ID Date Data Source [id number] 01/06/2021 10:42:00 AM EDT [place] ([facility]) Name Value Range Interpretation Code Description Data Angela rce(s) Supporting Document(s) Calcidiol [Mass/volume] in Serum or Plasma 20 NG/mL 30-100 Below low normal Vitamin D,25-Oh,total,ia JONATAN ([facility]) ID Date Data Source [id number] 01/06/2021 10:42:00 AM EDT [place] ([facility]) Name Value Range Interpretation Code Description Data Angela rce(s) Supporting Document(s) Erythrocytes [#/volume] in Blood by Automated count 5.20 million /uL 3.80-5.10 Above high normal Red Blood Cell Count JONATAN ([facility]) Leukocytes [#/volume] in Blood by Automated count 5.7 thousand/uL 3 .8-10.8 White Blood Cell Count JONATAN ([facility]) Hemoglobin [Mass/volume] in Blood 13.4 g/dL 11.7-15.5 He moglobin JONATAN ([facility]) Erythrocyte mean corpuscular hemoglobin [Entitic mass] by Automated count 25.8 pg 27.0-33.0 Below low normal Mch JONATAN ([facility]) Erythrocyte mean corpuscular volume [Entitic volume] by Auto mated count 81.7 fL 80.0-100.0 Mcv JONATAN ([facility]) Hematocrit [Volume Fraction] of Blood by Automated count 42.5 % 35.0-45.0 Hematocrit JONATAN ([facility]) Erythrocyte mean corpuscular hemoglobin concentration [Mass/volume] by Automated count 31.5 g/dL 32.0-36.0 Below low normal Mchc JONATAN ([facility]) Erythrocyte distribution width [Ratio] by Automated count 14.0 % 11.0-15.0 Rdw JONATAN ([facility]) Platelet mean volume [Entitic volume] in Blood by Josi 10.7 f L 7.5-12.5 Mpv JONATAN ([facility]) Platelets [#/volume] in Blood by Automated count 261 thousand/uL 14 0-400 Platelet Count JONATAN ([facility]) Neutrophils [#/volume] in Blood by Automated count 3021 cells/uL 15 00-7800 Absolute Neutrophils JONATAN ([facility]) Monocytes [#/volume] in Blood by Automated count 479 cells/uL 200-9 50 Absolute Monocytes JONATAN ([facility]) Lymphocytes [#/volume] in Blood by Automated count 2012 cells/uL 85 0-3900 [facility] Eosinophils [#/volume] in Blood by Automated count 160 cells/uL 15- 500 Absolute Eosinophils JONATAN ([facility]) Basophils [#/volume] in Blood by Automated count 29 cells/uL 0-200 Absolute Basophils JONATAN ([facility]) Neutrophils/100 leukocytes in Blood by Automated count 53 % 38- 80 Neutrophils JONATAN ([facility]) Lymphocytes/100 leukocytes in Blood by Automated count 35.3 % 15-49 Lymphocytes JONATAN ([facility]) Basophils/100 leukocytes in Blood by Automated count 0.5 % 0-2 Basophils JONATAN ([facility]) Eosinophils/100 leukocytes in Blood by Automated count 2.8 % 0-8 Eosinophils JONATAN ([facility]) Monocytes/100 leukocytes in Blood by Automated count 8.4 % 0-13 Monocytes JONATAN ([facility]) ID Date Data Source [id number] 01/06/2021 10:42:00 AM EDT [facility]) Name Value Range Interpretation Code Description Data Angela rce(s) Supporting Document(s) Bacteria identified in Urine by Culture Reflexive Urine Culture [facility]) ID Date Data Source [id number] 01/06/2021 10:42:00 AM EDT [place] ([facility]) Name Value Range Interpretation Code Description Data Angela rce(s) Supporting Document(s) Color of Urine yellow yellow Color JONATAN ([facility]) Specific gravity of Urine by Test strip 1.001-1.035 Specific Barry JONATAN ([facility]) Appearance of Urine cloudy clear Abnormal (applies to non-numeric results) Appearance JONATAN ([facility]) Glucose [Presence] in Urine by Test strip trace negati ve Abnormal (applies to non-numeric results) Glucose JONATAN ([facility]) Bilirubin.total [Presence] in Urine by Test strip negative negative Bilirubin JONATAN ([facility]) pH of Urine by Test strip 5.0-8.0 Ph JONATAN ([facility]) Protein [Presence] in Urine by Test strip negative negative Protein JONATAN ([facility]) Hemoglobin [Presence] in Urine by Test strip negative negative Occult Blood JONATAN ([facility]) Ketones [Presence] in Urine by Test strip 1+ negati ve Abnormal (applies to non- numeric results) Ketones JONATAN ([facility]) Leukocyte esterase [Presence] in Urine by Test strip negative n egative Leukocyte Esterase JONATAN ([facility]) Nitrite [Presence] in Urine by Test strip negative negative Nitrite JONATAN ([facility]) Leukocytes [#/area] in Urine sediment by Microscopy high pow er field 0-5 < or = 5 Wbc JONATAN ([facility]) Erythrocytes [#/area] in Urine sediment by Microscopy high p ower field 0-2 < or = 2 Rbc JONATAN ([facility]) Epithelial cells.squamous [#/area] in Ur ine sediment by Microscopy high power field 6-10 < or = 5 Abnormal (applies to non-numeric results) Squamous Epithelial Cells JONATAN ([facility]) Hyaline casts [#/area] in Urine sediment by Microscopy low p ower field 0-1 none seen Abnormal (applies to non-numeric results) Hyaline Cast JOANTAN ([facility]) Bacteria [#/area] in Urine sediment by Microscopy high power field none seen none seen Bacteria JONATAN ([facility]) Calcium oxalate crystals [#/area] in Uri ne sediment by Microscopy high power field many none or few Abnormal (applies to non-numeric results) Calcium Oxalate Crystals JONATAN ([facility]) Granular casts [#/area] in Urine sediment by Microscopy low power field 0-1 none seen Abnormal (applies to non-numeric results) Granular Cast F[facility]WELL ([facility]) ID Date Data Source [id number] 01/06/2021 10:42:00 AM EDT [facility]) Name Value Range Interpretation Code Description Data Angela rce(s) Supporting Document(s) Microalbumin [Mass/volume] in Urine 2.2 mg/dL see note: Albumin, Urine JONATAN ([facility]) Service comment Lito [facility]WELL ([facility]) ID Date Data Source [id number] 01/06/2021 10:42:00 AM EDT [facility]) Name Value Range Interpretation Code Description Data Angela rce(s) Supporting Document(s) Glucose [Mass/volume] in Serum or Plasma 174 mg/dL 65-99 Above high normal Glucose JONATAN ([facility]) Creatinine [Mass/volume] in Serum or Plasma 0.70 mg/dL 0.50-1.10 Creatinine JONATAN ([facility]) Urea nitrogen [Mass/volume] in Serum or Plasma 14 mg/dL 7-25 Urea Nitrogen (BUN) JONATAN ([facility]) Urea nitrogen/Creatinine [Mass Ratio] in Serum or Plasma not applic able 6-22 BUN/creatinine Ratio JONATAN ([facility]) Glomerular filtration rate/1.73 sq M.pre dicted among non-blacks [Volume Rate/Area] in Serum, Plasma or Blood by Creatinine-based formula (CKD-EPI) 109 mL/min/1.73m2 > or = 60 eGFR Non-afr. Cypriot JONATAN ([facility]) Glomerular filtration rate/1.73 sq M.pre dicted among blacks [Volume Rate/Area] in Serum, Plasma or Blood by Creatinine-based formula (CKD-EPI) 126 mL/min/1.73m2 > or = 60 eGFR JONATAN ([facility]) Potassium [Moles/volume] in Serum or Plasma 4.4 mmol/L 3.5-5.3 Potassium JONATAN ([facility]) Sodium [Moles/volume] in Serum or Plasma 134 mmol/L 135-146 Below low normal Sodium JONATAN ([facility]) Carbon dioxide, total [Moles/volume] in Serum or Plasma 23 mmol/L 20-32 Carbon Dioxide JONATAN ([facility]) Chloride [Moles/volume] in Serum or Plasma 99 mmol/L 98-110 Chloride JONATAN ([facility]) Protein [Mass/volume] in Serum or Plasma 7.2 g/dL 6.1-8.1 Protein, Total JONATAN ([facility]) Albumin [Mass/volume] in Serum or Plasma 4.1 g/dL 3.6-5.1 Albumin JONATAN ([facility]) Calcium [Mass/volume] in Serum or Plasma 8.6 mg/dL 8.6-10.2 Calcium JONATAN ([facility]) Globulin [Mass/volume] in Serum by calculation 3.1 g/dL_(calc) 1.9- 3.7 Globulin JONATAN ([facility]) Albumin/Globulin [Mass Ratio] in Serum or Plasma 1.3 (calc) 1.0-2 .5 Albumin/globulin Ratio JONATAN ([facility]) Alkaline phosphatase [Enzymatic activity/volume] in Serum or Plasma 93 U/L 31-125 Alkaline Phosphatase JONATAN ([facility]) Aspartate aminotransferase [Enzymatic activity/volume] in Serum or Plasma 29 U/L 10-30 Ast JONATAN ([facility]) Bilirubin.total [Mass/volume] in Serum or Plasma 0.5 mg/dL 0.2-1 .2 Bilirubin, Total JONATAN ([facility]) Alanine aminotransferase [Enzymatic activity/volume] in Seru m or Plasma 35 U/L 6-29 Above high normal Alt JONATAN ([facility]) ID Date Data Source [id number] 01/06/2021 10:42:00 AM EDT [place] ([facility]) Name Value Range Interpretation Code Description Data Angela rce(s) Supporting Document(s) Thyroxine (T4) free [Mass/volume] in Serum or Plasma 1.3 NG/dL 0 .8-1.8 T4, Free [place]LL ([facility]) Thyrotropin [Units/volume] in Serum or Plasma 2.59 mIU/L Tsh [facility] ([facility]) ID Date Data Source [id number] 09/25/2020 08:10:00 AM EST [facility] ([facility]) Name Value Range Interpretation Code Description Data Angela rce(s) Supporting Document(s) ID Date Data Source [id number] 09/25/2020 08:10:00 AM EST [place] ([facility]) Name Value Range Interpretation Code Description Data Angela rce(s) Supporting Document(s) appearance, urine hazy clear Appearance, Urine [facility] ([facility]) pH,urine 5.0 units 5.0-9.0 pH,urine JONATAN ([facility]) color, urine yellow yellow Color, Urine JONATAN ([facility]) specific gravity urine auto 1.002-1.035 Specifi c Barry Urine Auto JONATAN ([facility]) glucose, urine (UA) auto negative negative Glucose, Ur ine (UA) Auto JONATAN ([facility]) protein, urine auto negative negative Protein, Urine A uto JONATAN ([facility]) ketone, urine auto 1+ negative Above high normal Ketone, Ur ine Auto JONATAN ([facility]) bilirubin, urine auto negative negative Bilirubin, Uri ne Auto JONATAN ([facility]) urobilinogen, urine auto 0.2 mg/dL 0.0-2.0 Urobilinoge n, Urine Auto JONATAN ([facility]) leukocyte esterase, urine auto negative negative Leukocyte Esterase, Urine Auto JONATAN ([facility]) nitrite, urine auto negative negative Nitrite, Urine A uto JONATAN ([facility]) blood, urine blood negative negative Blood, Urine Bloo d JONATAN ([facility]) WBC, urine auto 6 /hpf 0-3 Above high normal WBC, Urine Au to JONATAN ([facility]) RBC, urine auto 2 /hpf 0-3 RBC, Urine Auto ATHE NA ([facility]) squamous epithelial cell ur AU 10 /hpf 0-6 Squam ous Epithelial Cell Ur AU JONATAN ([facility]) bacteria, urine auto negative negative Bacteria, Urine Auto JONATAN ([facility]) mucus, urine small negative Mucus, Urine JONATAN ([facility]) hyaline cast, urine auto 0 /lpf 0-1 Hyaline Victor Hugo t, Urine Auto JONATAN ([facility]) ID Date Data Source [id number] 09/25/2020 08:10:00 AM EST JONATAN ([facility]) Name Value Range Interpretation Code Description Data Angela rce(s) Supporting Document(s) ID Date Data Source [id number] 09/25/2020 08:10:00 AM EST JONATAN ([facility]) Name Value Range Interpretation Code Description Data Angela rce(s) Supporting Document(s) appearance, urine hazy clear Appearance, Urine JONATAN ([facility]) pH,urine 5.0 units 5.0-9.0 pH,urine JONATAN ([facility]) color, urine yellow yellow Color, Urine JONATAN ([facility]) specific gravity urine auto 1.002-1.035 Specifi c Barry Urine Auto JONATAN ([facility]) protein, urine auto negative negative Protein, Urine A uto JONATAN ([facility]) glucose, urine (UA) auto negative negative Glucose, Ur ine (UA) Auto JONATAN ([facility]) urobilinogen, urine auto 0.2 mg/dL 0.0-2.0 Urobilinoge n, Urine Auto JONATAN ([facility]) bilirubin, urine auto negative negative Bilirubin, Uri ne Auto JONATAN ([facility]) ketone, urine auto 1+ negative Above high normal Ketone, Ur ine Auto JONATAN ([facility]) nitrite, urine auto negative negative Nitrite, Urine A uto JONATAN ([facility]) leukocyte esterase, urine auto negative negative Leukocyte Esterase, Urine Auto JONATAN ([facility]) blood, urine blood negative negative Blood, Urine Bloo d JONATAN ([facility]) RBC, urine auto 2 /hpf 0-3 RBC, Urine Auto ATHE NA ([facility]) bacteria, urine auto negative negative Bacteria, Urine Auto JONATAN ([facility]) WBC, urine auto 6 /hpf 0-3 Above high normal WBC, Urine Au to JONATAN ([facility]) squamous epithelial cell ur AU 10 /hpf 0-6 Squam ous Epithelial Cell Ur AU JONATAN ([facility]) mucus, urine small negative Mucus, Urine JONATAN ([facility]) hyaline cast, urine auto 0 /lpf 0-1 Hyaline Victor Hugo t, Urine Auto JONATAN ([facility]) ID Date Data Source [id number] 09/25/2020 08:10:00 AM EST JONATAN ([facility]) Name Value Range Interpretation Code Description Data Angela rce(s) Supporting Document(s) ID Date Data Source [id number] 09/25/2020 08:10:00 AM EST JONATAN ([facility]) Name Value Range Interpretation Code Description Data Angela rce(s) Supporting Document(s) color, urine yellow yellow Color, Urine JONATAN ([facility]) appearance, urine hazy clear Appearance, Urine JONATAN ([facility]) pH,urine 5.0 units 5.0-9.0 pH,urine JONATAN ([facility]) specific gravity urine auto 1.002-1.035 Specifi c Barry Urine Auto JONATAN ([facility]) protein, urine auto negative negative Protein, Urine A uto JONATAN ([facility]) ketone, urine auto 1+ negative Above high normal Ketone, Ur ine Auto FARWELL ([facility]) urobilinogen, urine auto 0.2 mg/dL 0.0-2.0 Urobilinoge n, Urine Auto JONATAN ([facility]) glucose, urine (UA) auto negative negative Glucose, Ur ine (UA) Auto JONATAN ([facility]) bilirubin, urine auto negative negative Bilirubin, Uri ne Auto JONATAN ([facility]) nitrite, urine auto negative negative Nitrite, Urine A uto JONATAN ([facility]) blood, urine blood negative negative Blood, Urine Bloo d JONATAN ([facility]) leukocyte esterase, urine auto negative negative Leukocyte Esterase, Urine Auto JONATAN ([facility]) squamous epithelial cell ur AU 10 /hpf 0-6 Squam ous Epithelial Cell Ur AU JONATAN ([facility]) RBC, urine auto 2 /hpf 0-3 RBC, Urine Auto ATHE NA ([facility]) bacteria, urine auto negative negative Bacteria, Urine Auto JONATAN ([facility]) WBC, urine auto 6 /hpf 0-3 Above high normal WBC, Urine Au to JONATAN ([facility]) mucus, urine small negative Mucus, Urine JONATAN ([facility]) hyaline cast, urine auto 0 /lpf 0-1 Hyaline Victor Hugo t, Urine Auto JONATAN ([facility]) ID Date Data Source [id number] 09/25/2020 08:10:00 AM EST JONATAN ([facility]) Name Value Range Interpretation Code Description Data Angela rce(s) Supporting Document(s) ID Date Data Source [id number] 09/25/2020 08:10:00 AM EST JONATAN ([facility]) Name Value Range Interpretation Code Description Data Angela rce(s) Supporting Document(s) appearance, urine hazy clear Appearance, Urine JONATAN ([facility]) color, urine yellow yellow Color, Urine JONATAN ([facility]) pH,urine 5.0 units 5.0-9.0 pH,urine JONATAN ([facility]) specific gravity urine auto 1.002-1.035 Specifi c Barry Urine Auto JONATAN ([facility]) glucose, urine (UA) auto negative negative Glucose, Ur ine (UA) Auto JONATAN ([facility]) protein, urine auto negative negative Protein, Urine A uto JONATAN ([facility]) urobilinogen, urine auto 0.2 mg/dL 0.0-2.0 Urobilinoge n, Urine Auto JONATAN ([facility]) bilirubin, urine auto negative negative Bilirubin, Uri ne Auto JONATAN ([facility]) ketone, urine auto 1+ negative Above high normal Ketone, Ur ine Auto JONATAN ([facility]) nitrite, urine auto negative negative Nitrite, Urine A uto JONATAN ([facility]) leukocyte esterase, urine auto negative negative Leukocyte Esterase, Urine Auto JONATAN ([facility]) blood, urine blood negative negative Blood, Urine Bloo d JONATAN ([facility]) WBC, urine auto 6 /hpf 0-3 Above high normal WBC, Urine Au to JONATAN ([facility]) RBC, urine auto 2 /hpf 0-3 RBC, Urine Auto ATHE NA ([facility]) bacteria, urine auto negative negative Bacteria, Urine Auto JONATAN ([facility]) squamous epithelial cell ur AU 10 /hpf 0-6 Squam ous Epithelial Cell Ur AU JONATAN ([facility]) mucus, urine small negative Mucus, Urine JONATAN ([facility]) hyaline cast, urine auto 0 /lpf 0-1 Hyaline Victor Hugo t, Urine Auto JONATAN ([facility]) ID Date Data Source [id number] 09/25/2020 08:10:00 AM EST JONATAN ([facility]) Name Value Range Interpretation Code Description Data Angela rce(s) Supporting Document(s) ID Date Data Source [id number] 09/25/2020 08:10:00 AM EST JONATAN ([facility]) Name Value Range Interpretation Code Description Data Angela rce(s) Supporting Document(s) appearance, urine hazy clear Appearance, Urine JONATAN ([facility]) color, urine yellow yellow Color, Urine JONATAN (No [facility]) pH,urine 5.0 units 5.0-9.0 pH,urine JONATAN ([facility]) specific gravity urine auto 1.002-1.035 Specifi c Barry Urine Auto FARWELL ([facility]) glucose, urine (UA) auto negative negative Glucose, Ur ine (UA) Auto [place] ([facility]) protein, urine auto negative negative Protein, Urine A uto [place] ([facility]) urobilinogen, urine auto 0.2 mg/dL 0.0-2.0 Urobilinoge n, Urine Auto JONATAN ([facility]) bilirubin, urine auto negative negative Bilirubin, Uri ne Auto JONATAN ([facility]) ketone, urine auto 1+ negative Above high normal Ketone, Ur ine Auto JONATAN ([facility]) blood, urine blood negative negative Blood, Urine Bloo d JONATAN ([facility]) leukocyte esterase, urine auto negative negative Leukocyte Esterase, Urine Auto JONATAN ([facility]) nitrite, urine auto negative negative Nitrite, Urine A uto JONATAN ([facility]) WBC, urine auto 6 /hpf 0-3 Above high normal WBC, Urine Au to JONATAN ([facility]) bacteria, urine auto negative negative Bacteria, Urine Auto JONATAN ([facility]) RBC, urine auto 2 /hpf 0-3 RBC, Urine Auto ATHE NA ([facility]) squamous epithelial cell ur AU 10 /hpf 0-6 Squam ous Epithelial Cell Ur AU JONATAN ([facility]) mucus, urine small negative Mucus, Urine JONATAN ([facility]) hyaline cast, urine auto 0 /lpf 0-1 Hyaline Victor Hugo t, Urine Auto JONATAN ([facility]) ID Date Data Source [id number] 09/25/2020 08:10:00 AM EST JONATAN ([facility]) Name Value Range Interpretation Code Description Data Angela rce(s) Supporting Document(s) ID Date Data Source [id number] 09/25/2020 08:10:00 AM EST JONATAN ([facility]) Name Value Range Interpretation Code Description Data Angela rce(s) Supporting Document(s) color, urine yellow yellow Color, Urine JONATAN ([facility]) appearance, urine hazy clear Appearance, Urine JONATAN ([facility]) protein, urine auto negative negative Protein, Urine A iao JONATAN ([facility]) specific gravity urine auto 1.002-1.035 Specifi c Barry Urine Auto JONATAN ([facility]) pH,urine 5.0 units 5.0-9.0 pH,urine JONATAN ([facility]) urobilinogen, urine auto 0.2 mg/dL 0.0-2.0 Urobilinoge n, Urine Auto JONATAN ([facility]) ketone, urine auto 1+ negative Above high normal Ketone, Ur ine Auto JONATAN ([facility]) glucose, urine (UA) auto negative negative Glucose, Ur ine (UA) Auto JON[facility]AN ([facility]) nitrite, urine auto negative negative Nitrite, Urine A uto JONATAN ([facility]) bilirubin, urine auto negative negative Bilirubin, Uri ne Auto JONATAN ([facility]) leukocyte esterase, urine auto negative negative Leukocyte Esterase, Urine Auto JONATAN ([facility]) RBC, urine auto 2 /hpf 0-3 RBC, Urine Auto ATHE NA ([facility]) blood, urine blood negative negative Blood, Urine Bloo d JONATAN ([facility]) WBC, urine auto 6 /hpf 0-3 Above high normal WBC, Urine Au to JONATAN ([facility]) bacteria, urine auto negative negative Bacteria, Urine Auto JONATAN ([facility]) squamous epithelial cell ur AU 10 /hpf 0-6 Squam ous Epithelial Cell Ur AU JONATAN ([facility]) mucus, urine small negative Mucus, Urine JONATAN (No [facility]) hyaline cast, urine auto 0 /lpf 0-1 Hyaline Victor Hugo t, Urine Auto JONATAN ([facility]) ID Date Data Source [id number] 09/25/2020 08:10:00 AM EST JONATAN ([facility]) Name Value Range Interpretation Code Description Data Angela rce(s) Supporting Document(s) ID Date Data Source [id number] 09/25/2020 08:10:00 AM EST JONATAN ([facility]) Name Value Range Interpretation Code Description Data Angela rce(s) Supporting Document(s) appearance, urine hazy clear Appearance, Urine JONATAN ([facility]) color, urine yellow yellow Color, Urine JONATAN ([facility]) specific gravity urine auto 1.002-1.035 Specifi c Barry Urine Auto JONATAN ([facility]) pH,urine 5.0 units 5.0-9.0 pH,urine JON[facility]AN ([facility]) protein, urine auto negative negative Protein, Urine A uto JONATAN ([facility]) ketone, urine auto 1+ negative Above high normal Ketone, Ur ine Auto JONATAN ([facility]) urobilinogen, urine auto 0.2 mg/dL 0.0-2.0 Urobilinoge n, Urine Auto JONATAN ([facility]) glucose, urine (UA) auto negative negative Glucose, Ur ine (UA) Auto JONATAN ([facility]) leukocyte esterase, urine auto negative negative Leukocyte Esterase, Urine Auto JONATAN ([facility]) nitrite, urine auto negative negative Nitrite, Urine A uto JONATAN ([facility]) bilirubin, urine auto negative negative Bilirubin, Uri ne Auto JONATAN ([facility]) RBC, urine auto 2 /hpf 0-3 RBC, Urine Auto ATHE NA ([facility]) blood, urine blood negative negative Blood, Urine Bloo d JONATAN ([facility]) WBC, urine auto 6 /hpf 0-3 Above high normal WBC, Urine Au to JONATAN ([facility]) bacteria, urine auto negative negative Bacteria, Urine Auto JONATAN ([facility]) mucus, urine small negative Mucus, Urine JONATAN ([facility]) squamous epithelial cell ur AU 10 /hpf 0-6 Squam ous Epithelial Cell Ur AU JONATAN ([facility]) hyaline cast, urine auto 0 /lpf 0-1 Hyaline Victor Hugo t, Urine Auto JONATAN ([facility]) ID Date Data Source [id number] 09/25/2020 08:10:00 AM EST JONATAN ([facility]) Name Value Range Interpretation Code Description Data Angela rce(s) Supporting Document(s) ID Date Data Source [id number] 09/25/2020 08:10:00 AM EST JONATAN ([facility]) Name Value Range Interpretation Code Description Data Angela rce(s) Supporting Document(s) appearance, urine hazy clear Appearance, Urine JONATAN ([facility]) pH,urine 5.0 units 5.0-9.0 pH,urine JONATAN ([facility]) color, urine yellow yellow Color, Urine JONATAN ([facility]) specific gravity urine auto 1.002-1.035 Specifi c Barry Urine Auto JONATAN ([facility]) glucose, urine (UA) auto negative negative Glucose, Ur ine (UA) Auto JON[facility]AN ([facility]) protein, urine auto negative negative Protein, Urine A uto JONATAN ([facility]) ketone, urine auto 1+ negative Above high normal Ketone, Ur ine Auto JONATAN ([facility]) urobilinogen, urine auto 0.2 mg/dL 0.0-2.0 Urobilinoge n, Urine Auto JONATAN ([facility]) bilirubin, urine auto negative negative Bilirubin, Uri ne Auto JONATAN ([facility]) nitrite, urine auto negative negative Nitrite, Urine A uto JONATAN ([facility]) leukocyte esterase, urine auto negative negative Leukocyte Esterase, Urine Auto JONATAN ([facility]) blood, urine blood negative negative Blood, Urine Bloo d JONATAN ([facility]) RBC, urine auto 2 /hpf 0-3 RBC, Urine Auto ATHE NA ([facility]) bacteria, urine auto negative negative Bacteria, Urine Auto JONATAN ([facility]) WBC, urine auto 6 /hpf 0-3 Above high normal WBC, Urine Au to JONATAN ([facility]) squamous epithelial cell ur AU 10 /hpf 0-6 Squam ous Epithelial Cell Ur AU JONATAN ([facility]) mucus, urine small negative Mucus, Urine JONATAN (No [facility]) hyaline cast, urine auto 0 /lpf 0-1 Hyaline Victor Hugo t, Urine Auto JONATAN ([facility]) ID Date Data Source [id number] 09/25/2020 08:10:00 AM EST JONATAN ([facility]) Name Value Range Interpretation Code Description Data Angela rce(s) Supporting Document(s) ID Date Data Source [id number] 09/25/2020 08:10:00 AM EST JONATAN ([facility]) Name Value Range Interpretation Code Description Data Angela rce(s) Supporting Document(s) appearance, urine hazy clear Appearance, Urine JONATAN ([facility]) pH,urine 5.0 units 5.0-9.0 pH,urine JONATAN ([facility]) color, urine yellow yellow Color, Urine JONATAN (No [facility]) specific gravity urine auto 1.002-1.035 Specifi c Barry Urine Auto JONATAN ([facility]) ketone, urine auto 1+ negative Above high normal Ketone, Ur ine Auto JONATAN ([facility]) protein, urine auto negative negative Protein, Urine A uto JONATAN ([facility]) glucose, urine (UA) auto negative negative Glucose, Ur ine (UA) Auto JONATAN ([facility]) urobilinogen, urine auto 0.2 mg/dL 0.0-2.0 Urobilinoge n, Urine Auto JONATAN ([facility]) bilirubin, urine auto negative negative Bilirubin, Uri ne Auto JONATAN ([facility]) nitrite, urine auto negative negative Nitrite, Urine A uto JONATAN ([facility]) leukocyte esterase, urine auto negative negative Leukocyte Esterase, Urine Auto JONATAN ([facility]) blood, urine blood negative negative Blood, Urine Bloo d JONATAN ([facility]) bacteria, urine auto negative negative Bacteria, Urine Auto JONATAN ([facility]) WBC, urine auto 6 /hpf 0-3 Above high normal WBC, Urine Au to JONATAN ([facility]) RBC, urine auto 2 /hpf 0-3 RBC, Urine Auto ATHE NA ([facility]) mucus, urine small negative Mucus, Urine JONATAN ([facility]) hyaline cast, urine auto 0 /lpf 0-1 Hyaline Victor Hugo t, Urine Auto JONATAN ([facility]) squamous epithelial cell ur AU 10 /hpf 0-6 Squam ous Epithelial Cell Ur AU JON[facility]AN ([facility]) ID Date Data Source [id number] 09/25/2020 08:10:00 AM EST JONATAN ([facility]) Name Value Range Interpretation Code Description Data Angela rce(s) Supporting Document(s) ID Date Data Source [id number] 09/25/2020 08:10:00 AM EST JONATAN ([facility]) Name Value Range Interpretation Code Description Data Angela rce(s) Supporting Document(s) appearance, urine hazy clear Appearance, Urine JONATAN ([facility]) pH,urine 5.0 units 5.0-9.0 pH,urine JONATAN ([facility]) specific gravity urine auto 1.002-1.035 Specifi c Barry Urine Auto JONATAN ([facility]) color, urine yellow yellow Color, Urine JONATAN ([facility]) protein, urine auto negative negative Protein, Urine A uto JONATAN ([facility]) ketone, urine auto 1+ negative Above high normal Ketone, Ur ine Auto JONATAN ([facility]) glucose, urine (UA) auto negative negative Glucose, Ur ine (UA) Auto JONATAN ([facility]) urobilinogen, urine auto 0.2 mg/dL 0.0-2.0 Urobilinoge n, Urine Auto JONATAN ([facility]) bilirubin, urine auto negative negative Bilirubin, Uri ne Auto JONATAN ([facility]) nitrite, urine auto negative negative Nitrite, Urine A uto JONATAN ([facility]) leukocyte esterase, urine auto negative negative Leukocyte Esterase, Urine Auto JONATAN ([facility]) blood, urine blood negative negative Blood, Urine Bloo d JONATAN ([facility]) squamous epithelial cell ur AU 10 /hpf 0-6 Squam ous Epithelial Cell Ur AU JONATAN ([facility]) RBC, urine auto 2 /hpf 0-3 RBC, Urine Auto ATHE NA ([facility]) WBC, urine auto 6 /hpf 0-3 Above high normal WBC, Urine Au to JONATAN ([facility]) bacteria, urine auto negative negative Bacteria, Urine Auto JONATAN ([facility]) mucus, urine small negative Mucus, Urine JONATAN (No [facility]) hyaline cast, urine auto 0 /lpf 0-1 Hyaline Victor Hugo t, Urine Auto JONATAN ([facility]) ID Date Data Source [id number] 09/25/2020 08:10:00 AM EST JONATAN ([facility]) Name Value Range Interpretation Code Description Data Angela rce(s) Supporting Document(s) ID Date Data Source [id number] 09/25/2020 08:10:00 AM EST JONATAN ([facility]) Name Value Range Interpretation Code Description Data Angela rce(s) Supporting Document(s) appearance, urine hazy clear Appearance, Urine JONATAN ([facility]) color, urine yellow yellow Color, Urine JONATAN ([facility]) pH,urine 5.0 units 5.0-9.0 pH,urine JON[facility]AN ([facility]) protein, urine auto negative negative Protein, Urine A uto JONATAN ([facility]) specific gravity urine auto 1.002-1.035 Specifi c Barry Urine Auto JONATAN ([facility]) ketone, urine auto 1+ negative Above high normal Ketone, Ur ine Auto JONATAN ([facility]) glucose, urine (UA) auto negative negative Glucose, Ur ine (UA) Auto JONATAN ([facility]) urobilinogen, urine auto 0.2 mg/dL 0.0-2.0 Urobilinoge n, Urine Auto JONATAN ([facility]) bilirubin, urine auto negative negative Bilirubin, Uri ne Auto JONATAN ([facility]) leukocyte esterase, urine auto negative negative Leukocyte Esterase, Urine Auto JONATAN ([facility]) nitrite, urine auto negative negative Nitrite, Urine A uto JONATAN ([facility]) bacteria, urine auto negative negative Bacteria, Urine Auto JONATAN ([facility]) RBC, urine auto 2 /hpf 0-3 RBC, Urine Auto ATHE NA ([facility]) blood, urine blood negative negative Blood, Urine Bloo d JONATAN ([facility]) WBC, urine auto 6 /hpf 0-3 Above high normal WBC, Urine Au to JONATAN ([facility]) mucus, urine small negative Mucus, Urine JONATAN ([facility]) squamous epithelial cell ur AU 10 /hpf 0-6 Squam ous Epithelial Cell Ur AU JONATAN ([facility]) hyaline cast, urine auto 0 /lpf 0-1 Hyaline Victor Hugo t, Urine Auto JON[facility]AN ([facility]) ID Date Data Source [id number] 09/25/2020 08:10:00 AM EST JONATAN ([facility]) Name Value Range Interpretation Code Description Data Angela rce(s) Supporting Document(s) ID Date Data Source [id number] 09/25/2020 08:10:00 AM EST JONATAN ([facility]) Name Value Range Interpretation Code Description Data Angela rce(s) Supporting Document(s) appearance, urine hazy clear Appearance, Urine JONATAN ([facility]) pH,urine 5.0 units 5.0-9.0 pH,urine JONATAN ([facility]) specific gravity urine auto 1.002-1.035 Specifi c Barry Urine Auto JONATAN ([facility]) color, urine yellow yellow Color, Urine JONATAN ([facility]) protein, urine auto negative negative Protein, Urine A uto JONATAN ([facility]) glucose, urine (UA) auto negative negative Glucose, Ur ine (UA) Auto JON[facility]AN ([facility]) ketone, urine auto 1+ negative Above high normal Ketone, Ur ine Auto JONATAN ([facility]) nitrite, urine auto negative negative Nitrite, Urine A uto JONATAN ([facility]) bilirubin, urine auto negative negative Bilirubin, Uri ne Auto [place] ([facility]) urobilinogen, urine auto 0.2 mg/dL 0.0-2.0 Urobilinoge n, Urine Auto JONATAN ([facility]) blood, urine blood negative negative Blood, Urine Bloo d JONATAN ([facility]) WBC, urine auto 6 /hpf 0-3 Above high normal WBC, Urine Au to JONATAN ([facility]) leukocyte esterase, urine auto negative negative Leukocyte Esterase, Urine Auto JONATAN ([facility]) mucus, urine small negative Mucus, Urine JONATAN ([facility]) RBC, urine auto 2 /hpf 0-3 RBC, Urine Auto ATHE NA ([facility]) squamous epithelial cell ur AU 10 /hpf 0-6 Squam ous Epithelial Cell Ur AU JONATAN ([facility]) bacteria, urine auto negative negative Bacteria, Urine Auto JONATAN ([facility]) hyaline cast, urine auto 0 /lpf 0-1 Hyaline Victor Hugo t, Urine Auto JONATAN ([facility]) ID Date Data Source [id number] 09/25/2020 08:10:00 AM EST JONATAN ([facility]) Name Value Range Interpretation Code Description Data Angela rce(s) Supporting Document(s) ID Date Data Source [id number] 09/25/2020 08:10:00 AM EST JONATAN ([facility]) Name Value Range Interpretation Code Description Data Angela rce(s) Supporting Document(s) appearance, urine hazy clear Appearance, Urine JONATAN ([facility]) color, urine yellow yellow Color, Urine JONATAN (No [facility]) pH,urine 5.0 units 5.0-9.0 pH,urine JONATAN ([facility]) ketone, urine auto 1+ negative Above high normal Ketone, Ur ine Auto JONATAN ([facility]) specific gravity urine auto 1.002-1.035 Specifi c Barry Urine Auto JONATAN ([facility]) glucose, urine (UA) auto negative negative Glucose, Ur ine (UA) Auto JON[facility]AN ([facility]) protein, urine auto negative negative Protein, Urine A uto JONATAN ([facility]) nitrite, urine auto negative negative Nitrite, Urine A iao JONATAN ([facility]) urobilinogen, urine auto 0.2 mg/dL 0.0-2.0 Urobilinoge n, Urine Auto JONATAN ([facility]) bilirubin, urine auto negative negative Bilirubin, Uri ne Auto JONATAN ([facility]) blood, urine blood negative negative Blood, Urine Bloo d JONATAN ([facility]) WBC, urine auto 6 /hpf 0-3 Above high normal WBC, Urine Au to JONATAN ([facility]) leukocyte esterase, urine auto negative negative Leukocyte Esterase, Urine Auto JONATAN ([facility]) squamous epithelial cell ur AU 10 /hpf 0-6 Squam ous Epithelial Cell Ur AU JONATAN ([facility]) bacteria, urine auto negative negative Bacteria, Urine Auto JONATAN ([facility]) RBC, urine auto 2 /hpf 0-3 RBC, Urine Auto ATHE NA ([facility]) hyaline cast, urine auto 0 /lpf 0-1 Hyaline Victor Hugo t, Urine Auto JONATAN ([facility]) mucus, urine small negative Mucus, Urine JONATAN (No [facility]) ID Date Data Source [id number] 09/25/2020 08:10:00 AM EST JONATAN ([facility]) Name Value Range Interpretation Code Description Data Angela rce(s) Supporting Document(s) ID Date Data Source [id number] 09/25/2020 08:10:00 AM EST JONATAN ([facility]) Name Value Range Interpretation Code Description Data Angela rce(s) Supporting Document(s) appearance, urine hazy clear Appearance, Urine JONATAN ([facility]) color, urine yellow yellow Color, Urine JONATAN (No [facility]) pH,urine 5.0 units 5.0-9.0 pH,urine JONATAN ([facility]) specific gravity urine auto 1.002-1.035 Specifi c Barry Urine Auto JONATAN ([facility]) protein, urine auto negative negative Protein, Urine A uto JONATAN ([facility]) glucose, urine (UA) auto negative negative Glucose, Ur ine (UA) Auto JONATAN ([facility]) ketone, urine auto 1+ negative Above high normal Ketone, Ur ine Auto JONATAN ([facility]) bilirubin, urine auto negative negative Bilirubin, Uri ne Auto JONATAN ([facility]) urobilinogen, urine auto 0.2 mg/dL 0.0-2.0 Urobilinoge n, Urine Auto JONATAN ([facility]) leukocyte esterase, urine auto negative negative Leukocyte Esterase, Urine Auto JON[facility]AN ([facility]) nitrite, urine auto negative negative Nitrite, Urine A uto JONATAN ([facility]) WBC, urine auto 6 /hpf 0-3 Above high normal WBC, Urine Au to JONATAN ([facility]) blood, urine blood negative negative Blood, Urine Bloo d JONATAN ([facility]) RBC, urine auto 2 /hpf 0-3 RBC, Urine Auto ATHE NA ([facility]) bacteria, urine auto negative negative Bacteria, Urine Auto JONATAN ([facility]) squamous epithelial cell ur AU 10 /hpf 0-6 Squam ous Epithelial Cell Ur AU JONATAN ([facility]) hyaline cast, urine auto 0 /lpf 0-1 Hyaline Victor Hugo t, Urine Auto JONATAN ([facility]) mucus, urine small negative Mucus, Urine JONATAN (No [facility]) ID Date Data Source [id number] 09/25/2020 08:10:00 AM EST JONATAN ([facility]) Name Value Range Interpretation Code Description Data Angela rce(s) Supporting Document(s) ID Date Data Source [id number] 09/25/2020 08:10:00 AM EST JONATAN ([facility]) Name Value Range Interpretation Code Description Data Angela rce(s) Supporting Document(s) appearance, urine hazy clear Appearance, Urine JONATAN ([facility]) color, urine yellow yellow Color, Urine JONATAN (No [facility]) pH,urine 5.0 units 5.0-9.0 pH,urine JONATAN ([facility]) glucose, urine (UA) auto negative negative Glucose, Ur ine (UA) Auto JONATAN ([facility]) specific gravity urine auto 1.002-1.035 Specifi c Barry Urine Auto JONATAN ([facility]) protein, urine auto negative negative Protein, Urine A uto JONATAN ([facility]) bilirubin, urine auto negative negative Bilirubin, Uri ne Auto JONATAN ([facility]) ketone, urine auto 1+ negative Above high normal Ketone, Ur ine Auto JONATAN ([facility]) urobilinogen, urine auto 0.2 mg/dL 0.0-2.0 Urobilinoge n, Urine Auto JONATAN ([facility]) blood, urine blood negative negative Blood, Urine Bloo d JONATAN ([facility]) WBC, urine auto 6 /hpf 0-3 Above high normal WBC, Urine Au to JONATAN ([facility]) leukocyte esterase, urine auto negative negative Leukocyte Esterase, Urine Auto JONATAN ([facility]) nitrite, urine auto negative negative Nitrite, Urine A uto JONATAN ([facility]) bacteria, urine auto negative negative Bacteria, Urine Auto JONATAN ([facility]) RBC, urine auto 2 /hpf 0-3 RBC, Urine Auto ATHE NA ([facility]) squamous epithelial cell ur AU 10 /hpf 0-6 Squam ous Epithelial Cell Ur AU JONATAN ([facility]) hyaline cast, urine auto 0 /lpf 0-1 Hyaline Victor Hugo t, Urine Auto JONATAN ([facility]) mucus, urine small negative Mucus, Urine JONATAN (No [facility]) ID Date Data Source [id number] 09/25/2020 08:10:00 AM EST JONATAN ([facility]) Name Value Range Interpretation Code Description Data Angela rce(s) Supporting Document(s) ID Date Data Source [id number] 09/25/2020 08:10:00 AM EST JONATAN ([facility]) Name Value Range Interpretation Code Description Data Angela rce(s) Supporting Document(s) appearance, urine hazy clear Appearance, Urine JONATAN ([facility]) color, urine yellow yellow Color, Urine JONATAN (No [facility]) pH,urine 5.0 units 5.0-9.0 pH,urine JONATAN ([facility]) protein, urine auto negative negative Protein, Urine A uto JONATAN ([facility]) specific gravity urine auto 1.002-1.035 Specifi c Barry Urine Auto JONATAN ([facility]) ketone, urine auto 1+ negative Above high normal Ketone, Ur ine Auto JONATAN ([facility]) glucose, urine (UA) auto negative negative Glucose, Ur ine (UA) Auto JONATAN ([facility]) urobilinogen, urine auto 0.2 mg/dL 0.0-2.0 Urobilinoge n, Urine Auto JONATAN ([facility]) bilirubin, urine auto negative negative Bilirubin, Uri ne Auto JONATAN ([facility]) nitrite, urine auto negative negative Nitrite, Urine A uto JONATAN ([facility]) blood, urine blood negative negative Blood, Urine Bloo d JONATAN ([facility]) leukocyte esterase, urine auto negative negative Leukocyte Esterase, Urine Auto JONATAN ([facility]) RBC, urine auto 2 /hpf 0-3 RBC, Urine Auto ATHE NA ([facility]) WBC, urine auto 6 /hpf 0-3 Above high normal WBC, Urine Au to JONATAN ([facility]) bacteria, urine auto negative negative Bacteria, Urine Auto JONATAN ([facility]) squamous epithelial cell ur AU 10 /hpf 0-6 Squam ous Epithelial Cell Ur AU JONATAN ([facility]) hyaline cast, urine auto 0 /lpf 0-1 Hyaline Victor Hugo t, Urine Auto JONATAN ([facility]) mucus, urine small negative Mucus, Urine JONATAN (No [facility]) ID Date Data Source [id number] 09/25/2020 08:10:00 AM EST JONATAN ([facility]) Name Value Range Interpretation Code Description Data Angela rce(s) Supporting Document(s) ID Date Data Source [id number] 09/25/2020 08:10:00 AM EST JONATAN ([facility]) Name Value Range Interpretation Code Description Data Angela rce(s) Supporting Document(s) appearance, urine hazy clear Appearance, Urine JONATAN ([facility]) color, urine yellow yellow Color, Urine JONATAN (No [facility]) pH,urine 5.0 units 5.0-9.0 pH,urine JONATAN ([facility]) specific gravity urine auto 1.002-1.035 Specifi c Barry Urine Auto JONATAN ([facility]) protein, urine auto negative negative Protein, Urine A uto JONATAN ([facility]) glucose, urine (UA) auto negative negative Glucose, Ur ine (UA) Auto JONATAN ([facility]) urobilinogen, urine auto 0.2 mg/dL 0.0-2.0 Urobilinoge n, Urine Auto JONATAN ([facility]) ketone, urine auto 1+ negative Above high normal Ketone, Ur ine Auto JONATAN ([facility]) bilirubin, urine auto negative negative Bilirubin, Uri ne Auto JONATAN ([facility]) blood, urine blood negative negative Blood, Urine Bloo d JONATAN ([facility]) nitrite, urine auto negative negative Nitrite, Urine A uto JONATAN ([facility]) leukocyte esterase, urine auto negative negative Leukocyte Esterase, Urine Auto JONATAN ([facility]) bacteria, urine auto negative negative Bacteria, Urine Auto JONATAN ([facility]) WBC, urine auto 6 /hpf 0-3 Above high normal WBC, Urine Au to JONATAN ([facility]) RBC, urine auto 2 /hpf 0-3 RBC, Urine Auto ATHE NA ([facility]) squamous epithelial cell ur AU 10 /hpf 0-6 Squam ous Epithelial Cell Ur AU JONATAN ([facility]) mucus, urine small negative Mucus, Urine JONATAN (No [facility]) hyaline cast, urine auto 0 /lpf 0-1 Hyaline Victor Hugo t, Urine Auto OJNATAN ([facility]) ID Date Data Source [id number] 09/25/2020 08:10:00 AM EST JONATAN ([facility]) Name Value Range Interpretation Code Description Data Angela rce(s) Supporting Document(s) ID Date Data Source [id number] 09/25/2020 08:10:00 AM EST JONATAN ([facility]) Name Value Range Interpretation Code Description Data Angela rce(s) Supporting Document(s) appearance, urine hazy clear Appearance, Urine JONATAN ([facility]) specific gravity urine auto 1.002-1.035 Specifi c Barry Urine Auto JONATAN ([facility]) pH,urine 5.0 units 5.0-9.0 pH,urine JONATAN ([facility]) color, urine yellow yellow Color, Urine JONATAN (No [facility]) ketone, urine auto 1+ negative Above high normal Ketone, Ur ine Auto JONATAN ([facility]) glucose, urine (UA) auto negative negative Glucose, Ur ine (UA) Auto JONATAN ([facility]) protein, urine auto negative negative Protein, Urine A uto JONATAN ([facility]) urobilinogen, urine auto 0.2 mg/dL 0.0-2.0 Urobilinoge n, Urine Auto JONATAN ([facility]) nitrite, urine auto negative negative Nitrite, Urine A uto JONATAN ([facility]) bilirubin, urine auto negative negative Bilirubin, Uri ne Auto JONATAN ([facility]) leukocyte esterase, urine auto negative negative Leukocyte Esterase, Urine Auto JONATAN ([facility]) WBC, urine auto 6 /hpf 0-3 Above high normal WBC, Urine Au to JONATAN ([facility]) blood, urine blood negative negative Blood, Urine Bloo d JONATAN ([facility]) squamous epithelial cell ur AU 10 /hpf 0-6 Squam ous Epithelial Cell Ur AU JONATAN ([facility]) bacteria, urine auto negative negative Bacteria, Urine Auto JONATAN ([facility]) RBC, urine auto 2 /hpf 0-3 RBC, Urine Auto ATHE NA ([facility]) mucus, urine small negative Mucus, Urine JONATAN (No [facility]) hyaline cast, urine auto 0 /lpf 0-1 Hyaline Victor Hugo t, Urine Auto JONATAN ([facility]) ID Date Data Source [id number] 09/25/2020 08:10:00 AM EST JONATAN ([facility]) Name Value Range Interpretation Code Description Data Angela rce(s) Supporting Document(s) ID Date Data Source [id number] 09/25/2020 08:10:00 AM EST JONATAN ([facility]) Name Value Range Interpretation Code Description Data Angela rce(s) Supporting Document(s) appearance, urine hazy clear Appearance, Urine JONATAN ([facility]) pH,urine 5.0 units 5.0-9.0 pH,urine JONATAN ([facility]) color, urine yellow yellow Color, Urine JONATAN (No [facility]) glucose, urine (UA) auto negative negative Glucose, Ur ine (UA) Auto JONATAN ([facility]) protein, urine auto negative negative Protein, Urine A uto JONATAN ([facility]) specific gravity urine auto 1.002-1.035 Specifi c Barry Urine Auto JONATAN ([facility]) ketone, urine auto 1+ negative Above high normal Ketone, Ur ine Auto JONATAN ([facility]) bilirubin, urine auto negative negative Bilirubin, Uri ne Auto JONATAN ([facility]) urobilinogen, urine auto 0.2 mg/dL 0.0-2.0 Urobilinoge n, Urine Auto JONATAN ([facility]) nitrite, urine auto negative negative Nitrite, Urine A uto JONATAN ([facility]) WBC, urine auto 6 /hpf 0-3 Above high normal WBC, Urine Au to JONATAN ([facility]) blood, urine blood negative negative Blood, Urine Bloo d JONATAN ([facility]) leukocyte esterase, urine auto negative negative Leukocyte Esterase, Urine Auto JONATAN ([facility]) bacteria, urine auto negative negative Bacteria, Urine Auto JONATAN ([facility]) squamous epithelial cell ur AU 10 /hpf 0-6 Squam ous Epithelial Cell Ur AU JONATAN ([facility]) RBC, urine auto 2 /hpf 0-3 RBC, Urine Auto ATHE NA ([facility]) mucus, urine small negative Mucus, Urine JONATAN (No [facility]) hyaline cast, urine auto 0 /lpf 0-1 Hyaline Victor Hugo t, Urine Auto JONATAN ([facility]) ID Date Data Source [id number] 09/25/2020 08:05:00 AM EST JONATAN ([facility]) Name Value Range Interpretation Code Description Data Angela rce(s) Supporting Document(s) Hemoglobin A1c/Hemoglobin.total in Blood 7.7 % Hemoglobin a1C JONATAN ([facility]) estimated average glucose 174 mg/dL 60-110 Above high norm al Estimated Average Glucose JONATAN ([facility]) ID Date Data Source [id number] 09/25/2020 08:05:00 AM EST JONATAN ([facility]) Name Value Range Interpretation Code Description Data Angela rce(s) Supporting Document(s) total 25(oh) vitamin D 23.2 NG/mL 30.0-100.0 Below low normal T otal 25(Oh) Vitamin D JONATAN ([facility]) ID Date Data Source [id number] 09/25/2020 08:05:00 AM EST JONATAN ([facility]) Name Value Range Interpretation Code Description Data Angela rce(s) Supporting Document(s) thyroid stimulating hormone 5.730 uIU/mL 0.358-3.740 Above high no rmal Thyroid Stimulating Hormone JONATAN ([facility]) free T4 0.99 NG/dL 0.76-1.46 Free T4 JONATAN ([facility]) ID Date Data Source [id number] 09/25/2020 08:05:00 AM EST JONATAN ([facility]) Name Value Range Interpretation Code Description Data Angela rce(s) Supporting Document(s) triglycerides level 325 mg/dL <150 Above high normal Triglycer ides Level JONATAN ([facility]) HDL cholesterol 35 mg/dL >40 Below low normal HDL Cholestero l JONATAN ([facility]) cholesterol level 206 mg/dL <200 Above high normal Cholesterol Level JONATAN ([facility]) Cholesterol in LDL [Mass/volume] in Serum or Plasma 106 mg/dL <100 Above high normal LDL Cholesterol JONATAN ([facility]) non-HDL-C 171 mg/dL Non-hdl-c JONATAN ([facility]) cholesterol risk ratio <5 Above high normal Choles terol Risk Ratio JONATAN ([facility]) ID Date Data Source [id number] 09/25/2020 08:05:00 AM EST JONATAN ([facility]) Name Value Range Interpretation Code Description Data Angela rce(s) Supporting Document(s) glucose, fasting 175 mg/dL 70-100 Above high normal Glucose, Fas ting JONATAN ([facility]) creatinine for GFR 0.68 mg/dL 0.55-1.30 Creatinine for GF R JONATAN ([facility]) blood urea nitrogen 15 mg/dL 7-18 Blood Urea Nitro gen JONATAN ([facility]) potassium serum 4.6 mEq/L 3.5-5.1 Potassium Serum ATHE NA ([facility]) sodium level 136 mEq/L 136-145 Sodium Level JONATAN (No [facility]) chloride level 100 mEq/L 98-107 Chloride Level JONATAN ([facility]) glomerular filtration rate > 60.0 >60 Glomerula r Filtration Rate JONATAN ([facility]) calcium level 9.3 mg/dL 8.5-10.1 Calcium Level JONATAN ( [facility]) anion gap 8 mEq/L 8-16 Anion Gap JONATAN ([facility]) carbon dioxide level 28 mEq/L 21-32 Carbon Dioxide Level JONATAN ([facility]) ALT/SGPT 30 U/L 12-78 ALT/SGPT JONATAN ([facility]) total protein 7.2 gm/dL 6.4-8.2 Total Protein JONATAN ( [facility]) AST/SGOT 26 U/L 7-37 AST/SGOT JONATAN ([facility]) alkaline phosphatase 100 U/L 45-117 Alkaline Phosph atase JONATAN ([facility]) bilirubin,total 0.3 mg/dL 0.2-1.0 Bilirubin,total ATHE NA ([facility]) albumin 3.6 gm/dL 3.2-5.2 Albumin JONATAN ([facility]) albumin/globulin ratio 1.2-2.2 Below low normal Albumin /globulin Ratio JONATAN ([facility]) ID Date Data Source [id number] 09/25/2020 08:05:00 AM EST JONATAN ([facility]) Name Value Range Interpretation Code Description Data Angela rce(s) Supporting Document(s) white blood count 7.0 10 4.0-10.0 White Blood Count JONATAN ([facility]) red blood count 5.04 10 4.00-5.40 Red Blood Count ATHE NA ([facility]) hemoglobin 12.7 g/dL 12.0-15.5 Hemoglobin JONATAN ([facility]) hematocrit 41.6 % 36.0-47.0 Hematocrit JONATAN ([facility]) mean corpuscular hemoglobin 25.2 pg 27.0-33.0 Below low nor mal Mean Corpuscular Hemoglobin JONATAN ([facility]) mean corpuscular volume 82.5 fL 80.0-96.0 Mean Corpusc ular Volume JONATAN ([facility]) mean corpuscular HGB conc 30.5 g/dL 32.0-36.5 Below low rosalio l Mean Corpuscular HGB Conc JONATAN ([facility]) red cell distribution width 14.7 % 11.5-14.5 Above high no rmal Red Cell Distribution Width JONATAN ([facility]) platelet count, automated 234 10 150-450 Platelet C ount, Automated JONATAN ([facility]) neutrophils % 47.5 % 36.0-66.0 Neutrophils % FARWELL ( [facility]) mono % 8.5 % 0.0-5.0 Above high normal [place] % JONATAN ([facility]) baso % 0.4 % 0.0-1.0 Baso % JONATAN ([facility]) lymph % 39.3 % 24.0-44.0 Lymph % JONATAN ([facility]) eos % 3.6 % 0.0-3.0 Above high normal Eos % JONATAN ([facility]) neutrophils # 3.3 10 1.5-8.5 Neutrophils # JONATAN ( [facility]) nucleated red blood cell % 0.0 % 0-0 Nucleated Red Blood Cell % JONATAN ([facility]) immature granulocyte % 0.7 % 0-3.0 Immature Gran ulocyte % JONATAN ([facility]) eos # 0.3 10 0.0-0.5 Eos # JONATAN ([facility]) mono # 0.6 10 0.0-0.8 [place] # JONATAN ([facility]) lymph # 2.7 10 1.5-5.0 Lymph # JONATAN ([facility]) baso # 0.0 10 0.0-0.2 Baso # JONATAN ([facility]) ID Date Data Source [id number] 09/25/2020 08:05:00 AM EST JONATAN ([facility]) Name Value Range Interpretation Code Description Data Angela rce(s) Supporting Document(s) estimated average glucose 174 mg/dL 60-110 Above high norm al Estimated Average Glucose FARWELL ([facility]) Hemoglobin A1c/Hemoglobin.total in Blood 7.7 % Hemoglobin a1C [facility] ([facility]) ID Date Data Source [id number] 09/25/2020 08:05:00 AM EST JONATAN ([facility]) Name Value Range Interpretation Code Description Data Angela rce(s) Supporting Document(s) total 25(oh) vitamin D 23.2 NG/mL 30.0-100.0 Below low normal T otal 25(Oh) Vitamin D [facility]) ID Date Data Source [id number] 09/25/2020 08:05:00 AM EST JONATAN ([facility]) Name Value Range Interpretation Code Description Data Angela rce(s) Supporting Document(s) Hemoglobin A1c/Hemoglobin.total in Blood 7.7 % Hemoglobin a1C JONATAN ([facility]) estimated average glucose 174 mg/dL 60-110 Above high norm al Estimated Average Glucose FARWELL ([facility]) ID Date Data Source [id number] 09/25/2020 08:05[facility] Name Value Range Interpretation Code Description Data Angela rce(s) Supporting Document(s) total 25(oh) vitamin D 23.2 NG/mL 30.0-100.0 Below low normal T otal 25(Oh) Vitamin D JONATAN ([facility]) ID Date Data Source [id number] 09/25/2020 08:05:00 AM EST JONATAN ([facility]) Name Value Range Interpretation Code Description Data Angela rce(s) Supporting Document(s) thyroid stimulating hormone 5.730 uIU/mL 0.358-3.740 Above high no rmal Thyroid Stimulating Hormone JONATAN ([facility]) free T4 0.99 NG/dL 0.76-1.46 Free T4 [facility]WELL ([facility]) ID Date Data Source [id number] 09/25/2020 08:05:00 AM EST F[place]WELL ([facility]) Name Value Range Interpretation Code Description Data Angela rce(s) Supporting Document(s) triglycerides level 325 mg/dL <150 Above high normal Triglycer ides Level JONATAN ([facility]) HDL cholesterol 35 mg/dL >40 Below low normal HDL Cholestero l JONATAN ([facility]) cholesterol level 206 mg/dL <200 Above high normal Cholesterol Level JONATAN ([facility]) Cholesterol in LDL [Mass/volume] in Serum or Plasma 106 mg/dL <100 Above high normal LDL Cholesterol JONATAN ([facility]) cholesterol risk ratio <5 Above high normal Choles terol Risk Ratio JONATAN ([facility]) non-HDL-C 171 mg/dL Non-hdl-c JONATAN ([facility]) ID Date Data Source [id number] 09/25/2020 08:05:00 AM EST FARWELL ([facility]) Name Value Range Interpretation Code Description Data Angela rce(s) Supporting Document(s) blood urea nitrogen 15 mg/dL 7-18 Blood Urea Nitro gen JONATAN ([facility]) glucose, fasting 175 mg/dL 70-100 Above high normal Glucose, Fas ting FARWELL ([facility]) creatinine for GFR 0.68 mg/dL 0.55-1.30 Creatinine for GF R JONATAN ([facility]) potassium serum 4.6 mEq/L 3.5-5.1 Potassium Serum ATHE NA ([facility]) chloride level 100 mEq/L 98-107 Chloride Level JONATAN ([facility]) sodium level 136 mEq/L 136-145 Sodium Level JONATAN ([facility]) glomerular filtration rate > 60.0 >60 Glomerula r Filtration Rate JONATAN ([facility]) carbon dioxide level 28 mEq/L 21-32 Carbon Dioxide Level JONATAN ([facility]) calcium level 9.3 mg/dL 8.5-10.1 Calcium Level JONATAN ( [facility]) anion gap 8 mEq/L 8-16 Anion Gap JONATAN ([facility]) ALT/SGPT 30 U/L 12-78 ALT/SGPT JONATAN ([facility]) alkaline phosphatase 100 U/L 45-117 Alkaline Phosph atase JONATAN ([facility]) AST/SGOT 26 U/L 7-37 AST/SGOT JONATAN ([facility]) total protein 7.2 gm/dL 6.4-8.2 Total Protein JONATAN ( [facility]) albumin 3.6 gm/dL 3.2-5.2 Albumin JONATAN ([facility]) albumin/globulin ratio 1.2-2.2 Below low normal Albumin /globulin Ratio JONATAN ([facility]) bilirubin,total 0.3 mg/dL 0.2-1.0 Bilirubin,total ATHE ([facility]) ID Date Data Source [id number] 09/25/2020 08:05:00 AM EST JONATAN ([facility]) Name Value Range Interpretation Code Description Data Angela rce(s) Supporting Document(s) red blood count 5.04 10 4.00-5.40 Red Blood Count ATHE NA ([facility]) white blood count 7.0 10 4.0-10.0 White Blood Count JONATAN ([facility]) hemoglobin 12.7 g/dL 12.0-15.5 Hemoglobin JONATAN ([facility]) hematocrit 41.6 % 36.0-47.0 Hematocrit JONATAN ([facility]) mean corpuscular volume 82.5 fL 80.0-96.0 Mean Corpusc ular Volume JONATAN ([facility]) mean corpuscular hemoglobin 25.2 pg 27.0-33.0 Below low nor mal Mean Corpuscular Hemoglobin JONATAN ([facility]) mean corpuscular HGB conc 30.5 g/dL 32.0-36.5 Below low rosalio l Mean Corpuscular HGB Conc JONATAN ([facility]) red cell distribution width 14.7 % 11.5-14.5 Above high no rmal Red Cell Distribution Width JONATAN ([facility]) lymph % 39.3 % 24.0-44.0 Lymph % JONATAN ([facility]) platelet count, automated 234 10 150-450 Platelet C ount, Automated JONATAN ([facility]) neutrophils % 47.5 % 36.0-66.0 Neutrophils % JONATAN ( [facility]) mono % 8.5 % 0.0-5.0 Above high normal [place] % JONATAN ([facility]) baso % 0.4 % 0.0-1.0 Baso % JONATAN ([facility]) eos % 3.6 % 0.0-3.0 Above high normal Eos % JONATAN ([facility]) immature granulocyte % 0.7 % 0-3.0 Immature Gran ulocyte % JONATAN ([facility]) lymph # 2.7 10 1.5-5.0 Lymph # JONATAN ([facility]) neutrophils # 3.3 10 1.5-8.5 Neutrophils # JONATAN ( [facility]) nucleated red blood cell % 0.0 % 0-0 Nucleated Red Blood Cell % JONATAN ([facility]) eos # 0.3 10 0.0-0.5 Eos # JONATAN ([facility]) mono # 0.6 10 0.0-0.8 [place] # JONATAN ([facility]) baso # 0.0 10 0.0-0.2 Baso # JONATAN ([facility]) ID Date Data Source [id number] 09/25/2020 08:05:00 AM EST JONATAN ([facility]) Name Value Range Interpretation Code Description Data Angela rce(s) Supporting Document(s) Hemoglobin A1c/Hemoglobin.total in Blood 7.7 % Hemoglobin a1C JONATAN ([facility]) estimated average glucose 174 mg/dL 60-110 Above high norm al Estimated Average Glucose JONATAN ([facility]) ID Date Data Source [id number] 09/25/2020 08:05:00 AM EST JONATAN ([facility]) Name Value Range Interpretation Code Description Data Angela rce(s) Supporting Document(s) total 25(oh) vitamin D 23.2 NG/mL 30.0-100.0 Below low normal T otal 25(Oh) Vitamin D [facility]) ID Date Data Source [id number] 09/25/2020 08:05:00 AM EST JONATAN ([facility]) Name Value Range Interpretation Code Description Data Angela rce(s) Supporting Document(s) free T4 0.99 NG/dL 0.76-1.46 Free T4 JONATAN ([facility]) thyroid stimulating hormone 5.730 uIU/mL 0.358-3.740 Above high no rmal Thyroid Stimulating Hormone JONATAN ([facility]) ID Date Data Source [id number] 09/25/2020 08:05:00 AM EST JONATAN ([facility]) Name Value Range Interpretation Code Description Data Angela rce(s) Supporting Document(s) cholesterol level 206 mg/dL <200 Above high normal Cholesterol Level JONATAN ([facility]) triglycerides level 325 mg/dL <150 Above high normal Triglycer ides Level JONATAN ([facility]) cholesterol risk ratio <5 Above high normal Choles terol Risk Ratio JONATAN ([facility]) non-HDL-C 171 mg/dL Non-hdl-c JONATAN ([facility]) HDL cholesterol 35 mg/dL >40 Below low normal HDL Cholestero l JONATAN ([facility]) Cholesterol in LDL [Mass/volume] in Serum or Plasma 106 mg/dL <100 Above high normal LDL Cholesterol JONATAN ([facility]) ID Date Data Source [id number] 09/25/2020 08:05:00 AM EST JONATAN ([facility]) Name Value Range Interpretation Code Description Data Angela rce(s) Supporting Document(s) glucose, fasting 175 mg/dL 70-100 Above high normal Glucose, Fas ting JONATAN ([facility]) blood urea nitrogen 15 mg/dL 7-18 Blood Urea Nitro gen JONATAN ([facility]) creatinine for GFR 0.68 mg/dL 0.55-1.30 Creatinine for GF R JONATAN ([facility]) glomerular filtration rate > 60.0 >60 Glomerula r Filtration Rate JONATAN ([facility]) sodium level 136 mEq/L 136-145 Sodium Level JONATAN ([facility]) carbon dioxide level 28 mEq/L 21-32 Carbon Dioxide Level JONATAN ([facility]) potassium serum 4.6 mEq/L 3.5-5.1 Potassium Serum ATHE NA ([facility]) chloride level 100 mEq/L 98-107 Chloride Level JONATAN ([facility]) anion gap 8 mEq/L 8-16 Anion Gap JONATAN ([facility]) alkaline phosphatase 100 U/L 45-117 Alkaline Phosph atase JONATAN ([facility]) bilirubin,total 0.3 mg/dL 0.2-1.0 Bilirubin,total ATHE NA ([facility]) calcium level 9.3 mg/dL 8.5-10.1 Calcium Level JONATAN ( [facility]) ALT/SGPT 30 U/L 12-78 ALT/SGPT JONATAN ([facility]) AST/SGOT 26 U/L 7-37 AST/SGOT JONATAN ([facility]) albumin 3.6 gm/dL 3.2-5.2 Albumin JONATAN ([facility]) total protein 7.2 gm/dL 6.4-8.2 Total Protein JONATAN ( [facility]) albumin/globulin ratio 1.2-2.2 Below low normal Albumin /globulin Ratio JONATAN ([facility]) ID Date Data Source [id number] 09/25/2020 08:05:00 AM EST JONATAN ([facility]) Name Value Range Interpretation Code Description Data Angela rce(s) Supporting Document(s) hemoglobin 12.7 g/dL 12.0-15.5 Hemoglobin JONATAN ([facility]) white blood count 7.0 10 4.0-10.0 White Blood Count JONATAN ([facility]) red blood count 5.04 10 4.00-5.40 Red Blood Count ATHE NA ([facility]) mean corpuscular hemoglobin 25.2 pg 27.0-33.0 Below low nor mal Mean Corpuscular Hemoglobin JONATAN ([facility]) hematocrit 41.6 % 36.0-47.0 Hematocrit JONATAN ([facility]) mean corpuscular volume 82.5 fL 80.0-96.0 Mean Corpusc ular Volume JONATAN ([facility]) neutrophils % 47.5 % 36.0-66.0 Neutrophils % JONATAN ( [facility]) mean corpuscular HGB conc 30.5 g/dL 32.0-36.5 Below low rosalio l Mean Corpuscular HGB Conc JONATAN ([facility]) platelet count, automated 234 10 150-450 Platelet C ount, Automated JONATAN ([facility]) red cell distribution width 14.7 % 11.5-14.5 Above high no rmal Red Cell Distribution Width JONATAN ([facility]) lymph % 39.3 % 24.0-44.0 Lymph % JONATAN ([facility]) eos % 3.6 % 0.0-3.0 Above high normal Eos % JONATAN ([facility]) baso % 0.4 % 0.0-1.0 Baso % JONATAN ([facility]) mono % 8.5 % 0.0-5.0 Above high normal [place] % JONATAN ([facility]) immature granulocyte % 0.7 % 0-3.0 Immature Gran ulocyte % JONATAN ([facility]) lymph # 2.7 10 1.5-5.0 Lymph # JONATAN ([facility]) neutrophils # 3.3 10 1.5-8.5 Neutrophils # FARWELL ( [facility]) nucleated red blood cell % 0.0 % 0-0 Nucleated Red Blood Cell % JONATAN ([facility]) mono # 0.6 10 0.0-0.8 [place] # JONATAN ([facility]) eos # 0.3 10 0.0-0.5 Eos # JONATAN ([facility]) baso # 0.0 10 0.0-0.2 Baso # JONATAN ([facility]) ID Date Data Source [id number] 09/25/2020 08:05:00 AM EST JONATAN ([facility]) Name Value Range Interpretation Code Description Data Angela rce(s) Supporting Document(s) Hemoglobin A1c/Hemoglobin.total in Blood 7.7 % Hemoglobin a1C F[place]LL ([facility]) estimated average glucose 174 mg/dL 60-110 Above high norm al Estimated Average Glucose F[place]WELL ([facility]) ID Date Data Source [id number] 09/25/2020 08:05:00 AM EST F[place]WELL ([facility]) Name Value Range Interpretation Code Description Data Angela rce(s) Supporting Document(s) total 25(oh) vitamin D 23.2 NG/mL 30.0-100.0 Below low normal T otal 25(Oh) Vitamin D F[place]WELL ([facility]) ID Date Data Source [id number] 09/25/2020 08:05:00 AM EST JONATAN ([facility]) Name Value Range Interpretation Code Description Data Angela rce(s) Supporting Document(s) free T4 0.99 NG/dL 0.76-1.46 Free T4 JONATAN ([facility]) thyroid stimulating hormone 5.730 uIU/mL 0.358-3.740 Above high no rmal Thyroid Stimulating Hormone JONATAN ([facility]) ID Date Data Source [id number] 09/25/2020 08:05:00 AM EST JONATAN ([facility]) Name Value Range Interpretation Code Description Data Angela rce(s) Supporting Document(s) triglycerides level 325 mg/dL <150 Above high normal Triglycer ides Level JONATAN ([facility]) cholesterol level 206 mg/dL <200 Above high normal Cholesterol Level JONATAN ([facility]) HDL cholesterol 35 mg/dL >40 Below low normal HDL Cholestero l JONATAN ([facility]) non-HDL-C 171 mg/dL Non-hdl-c JONATAN ([facility]) Cholesterol in LDL [Mass/volume] in Serum or Plasma 106 mg/dL <100 Above high normal LDL Cholesterol JONATAN ([facility]) cholesterol risk ratio <5 Above high normal Choles terol Risk Ratio FARWELL ([facility]) ID Date Data Source [id number] 09/25/2020 08:05:00 AM EST JONATAN ([facility]) Name Value Range Interpretation Code Description Data Angela rce(s) Supporting Document(s) glucose, fasting 175 mg/dL 70-100 Above high normal Glucose, Fas ting JONATAN ([facility]) creatinine for GFR 0.68 mg/dL 0.55-1.30 Creatinine for GF R JONATAN ([facility]) blood urea nitrogen 15 mg/dL 7-18 Blood Urea Nitro gen JONATAN ([facility]) sodium level 136 mEq/L 136-145 Sodium Level JONATAN ([facility]) potassium serum 4.6 mEq/L 3.5-5.1 Potassium Serum ATH NA ([facility]) chloride level 100 mEq/L 98-107 Chloride Level FARWELL ([facility]) glomerular filtration rate > 60.0 >60 Glomerula r Filtration Rate JONATAN ([facility]) carbon dioxide level 28 mEq/L 21-32 Carbon Dioxide Level JONATAN ([facility]) anion gap 8 mEq/L 8-16 Anion Gap JONATAN ([facility]) calcium level 9.3 mg/dL 8.5-10.1 Calcium Level JONATAN ( [facility]) bilirubin,total 0.3 mg/dL 0.2-1.0 Bilirubin,total ATHE NA ([facility]) ALT/SGPT 30 U/L 12-78 ALT/SGPT JONATAN ([facility]) AST/SGOT 26 U/L 7-37 AST/SGOT JONATAN ([facility]) alkaline phosphatase 100 U/L 45-117 Alkaline Phosph atase JONATAN ([facility]) albumin 3.6 gm/dL 3.2-5.2 Albumin JONATAN ([facility]) albumin/globulin ratio 1.2-2.2 Below low normal Albumin /globulin Ratio JONATAN ([facility]) total protein 7.2 gm/dL 6.4-8.2 Total Protein JONATAN ( [facility]) ID Date Data Source [id number] 09/25/2020 08:05:00 AM EST JONATAN ([facility]) Name Value Range Interpretation Code Description Data Angela rce(s) Supporting Document(s) hemoglobin 12.7 g/dL 12.0-15.5 Hemoglobin JONATAN ([facility]) white blood count 7.0 10 4.0-10.0 White Blood Count JONATAN ([facility]) red blood count 5.04 10 4.00-5.40 Red Blood Count ATHE ([facility]) hematocrit 41.6 % 36.0-47.0 Hematocrit JONATAN ([facility]) mean corpuscular hemoglobin 25.2 pg 27.0-33.0 Below low nor mal Mean Corpuscular Hemoglobin JONATAN ([facility]) mean corpuscular volume 82.5 fL 80.0-96.0 Mean Corpusc ular Volume JONATAN ([facility]) red cell distribution width 14.7 % 11.5-14.5 Above high no rmal Red Cell Distribution Width JONATAN ([facility]) platelet count, automated 234 10 150-450 Platelet C ount, Automated JONATAN ([facility]) mean corpuscular HGB conc 30.5 g/dL 32.0-36.5 Below low rosalio l Mean Corpuscular HGB Conc JONATAN ([facility]) mono % 8.5 % 0.0-5.0 Above high normal [place] % JONATAN ([facility]) neutrophils % 47.5 % 36.0-66.0 Neutrophils % JONATAN ( [facility]) lymph % 39.3 % 24.0-44.0 Lymph % JONATAN ([facility]) immature granulocyte % 0.7 % 0-3.0 Immature Gran ulocyte % F[place]WELL ([facility]) eos % 3.6 % 0.0-3.0 Above high normal Eos % JONATAN ([facility]) baso % 0.4 % 0.0-1.0 Baso % JONATAN ([facility]) lymph # 2.7 10 1.5-5.0 Lymph # JONATAN ([facility]) neutrophils # 3.3 10 1.5-8.5 Neutrophils # FARWELL ( [facility]) nucleated red blood cell % 0.0 % 0-0 Nucleated Red Blood Cell % JONATAN ([facility]) baso # 0.0 10 0.0-0.2 Baso # JONATAN ([facility]) mono # 0.6 10 0.0-0.8 [place] # JONATAN ([facility]) eos # 0.3 10 0.0-0.5 Eos # JONATAN ([facility]) ID Date Data Source [id number] 09/25/2020 08:05:00 AM EST JONATAN ([facility]) Name Value Range Interpretation Code Description Data Angela rce(s) Supporting Document(s) estimated average glucose 174 mg/dL 60-110 Above high norm al Estimated Average Glucose F[place]WELL ([facility]) Hemoglobin A1c/Hemoglobin.total in Blood 7.7 % Hemoglobin a1C JONATAN ([facility]) ID Date Data Source [id number] 09/25/2020 08:05:00 AM EST JONATAN ([facility]) Name Value Range Interpretation Code Description Data Angela rce(s) Supporting Document(s) total 25(oh) vitamin D 23.2 NG/mL 30.0-100.0 Below low normal T otal 25(Oh) Vitamin D JONATAN ([facility]) ID Date Data Source [id number] 09/25/2020 08:05:00 AM EST JONATAN ([facility]) Name Value Range Interpretation Code Description Data Angela rce(s) Supporting Document(s) thyroid stimulating hormone 5.730 uIU/mL 0.358-3.740 Above high no rmal Thyroid Stimulating Hormone JONATAN ([facility]) free T4 0.99 NG/dL 0.76-1.46 Free T4 [facility] ([facility]) ID Date Data Source [id number] 09/25/2020 08:05:00 AM EST JONATAN ([facility]) Name Value Range Interpretation Code Description Data Angela rce(s) Supporting Document(s) HDL cholesterol 35 mg/dL >40 Below low normal HDL Cholestero l JONATAN ([facility]) triglycerides level 325 mg/dL <150 Above high normal Triglycer ides Level JONATAN ([facility]) cholesterol level 206 mg/dL <200 Above high normal Cholesterol Level JONATAN ([facility]) Cholesterol in LDL [Mass/volume] in Serum or Plasma 106 mg/dL <100 Above high normal LDL Cholesterol JONATAN ([facility]) cholesterol risk ratio <5 Above high normal Choles terol Risk Ratio JONATAN ([facility]) non-HDL-C 171 mg/dL Non-hdl-c JONATAN ([facility]) ID Date Data Source [id number] 09/25/2020 08:05:00 AM EST JONATAN ([facility]) Name Value Range Interpretation Code Description Data Angela rce(s) Supporting Document(s) glucose, fasting 175 mg/dL 70-100 Above high normal Glucose, Fas ting JONATAN ([facility]) blood urea nitrogen 15 mg/dL 7-18 Blood Urea Nitro gen JONATAN ([facility]) creatinine for GFR 0.68 mg/dL 0.55-1.30 Creatinine for GF R JONATAN ([facility]) glomerular filtration rate > 60.0 >60 Glomerula r Filtration Rate JONATAN ([facility]) sodium level 136 mEq/L 136-145 Sodium Level JONATAN (No [facility]) potassium serum 4.6 mEq/L 3.5-5.1 Potassium Serum ATHE NA ([facility]) carbon dioxide level 28 mEq/L 21-32 Carbon Dioxide Level JONATAN ([facility]) chloride level 100 mEq/L 98-107 Chloride Level JONATAN ([facility]) calcium level 9.3 mg/dL 8.5-10.1 Calcium Level JONATAN ( [facility]) anion gap 8 mEq/L 8-16 Anion Gap JONATAN ([facility]) AST/SGOT 26 U/L 7-37 AST/SGOT JONATAN ([facility]) ALT/SGPT 30 U/L 12-78 ALT/SGPT JONATAN ([facility]) alkaline phosphatase 100 U/L 45-117 Alkaline Phosph atase JONATAN ([facility]) total protein 7.2 gm/dL 6.4-8.2 Total Protein JONATAN ( [facility]) bilirubin,total 0.3 mg/dL 0.2-1.0 Bilirubin,total ATHE NA ([facility]) albumin 3.6 gm/dL 3.2-5.2 Albumin JONATAN ([facility]) albumin/globulin ratio 1.2-2.2 Below low normal Albumin /globulin Ratio JONATAN ([facility]) ID Date Data Source [id number] 09/25/2020 08:05:00 AM EST JONATAN ([facility]) Name Value Range Interpretation Code Description Data Angela rce(s) Supporting Document(s) white blood count 7.0 10 4.0-10.0 White Blood Count JONATAN ([facility]) red blood count 5.04 10 4.00-5.40 Red Blood Count ATHE NA ([facility]) hemoglobin 12.7 g/dL 12.0-15.5 Hemoglobin JONATAN ([facility]) hematocrit 41.6 % 36.0-47.0 Hematocrit JONATAN ([facility]) mean corpuscular volume 82.5 fL 80.0-96.0 Mean Corpusc ular Volume JONATAN ([facility]) mean corpuscular HGB conc 30.5 g/dL 32.0-36.5 Below low rosalio l Mean Corpuscular HGB Conc JONATAN ([facility]) mean corpuscular hemoglobin 25.2 pg 27.0-33.0 Below low nor mal Mean Corpuscular Hemoglobin JONATAN ([facility]) red cell distribution width 14.7 % 11.5-14.5 Above high no rmal Red Cell Distribution Width JONATAN ([facility]) platelet count, automated 234 10 150-450 Platelet C ount, Automated JONATAN ([facility]) neutrophils % 47.5 % 36.0-66.0 Neutrophils % JONATAN ( [facility]) mono % 8.5 % 0.0-5.0 Above high normal [place] % JONATAN ([facility]) lymph % 39.3 % 24.0-44.0 Lymph % JONATAN ([facility]) eos % 3.6 % 0.0-3.0 Above high normal Eos % JONATAN ([facility]) baso % 0.4 % 0.0-1.0 Baso % JONATAN ([facility]) nucleated red blood cell % 0.0 % 0-0 Nucleated Red Blood Cell % JONATAN ([facility]) immature granulocyte % 0.7 % 0-3.0 Immature Gran ulocyte % JONATAN ([facility]) neutrophils # 3.3 10 1.5-8.5 Neutrophils # JONATAN ( [facility]) lymph # 2.7 10 1.5-5.0 Lymph # JONATAN ([facility]) mono # 0.6 10 0.0-0.8 [place] # JONATAN ([facility]) eos # 0.3 10 0.0-0.5 Eos # JONATAN ([facility]) baso # 0.0 10 0.0-0.2 Baso # JONATAN ([facility]) ID Date Data Source [id number] 09/25/2020 08:05:00 AM EST JONATAN ([facility]) Name Value Range Interpretation Code Description Data Angela rce(s) Supporting Document(s) Hemoglobin A1c/Hemoglobin.total in Blood 7.7 % Hemoglobin a1C [place] ([facility]) estimated average glucose 174 mg/dL 60-110 Above high norm al Estimated Average Glucose [facility] ([facility]) ID Date Data Source [id number] 09/25/2020 08:05:00 AM EST JONATAN ([facility]) Name Value Range Interpretation Code Description Data Angela rce(s) Supporting Document(s) total 25(oh) vitamin D 23.2 NG/mL 30.0-100.0 Below low normal T otal 25(Oh) Vitamin D F[place] ([facility]) ID Date Data Source [id number] 09/25/2020 08:05:00 AM EST JONATAN ([facility]) Name Value Range Interpretation Code Description Data Angela rce(s) Supporting Document(s) thyroid stimulating hormone 5.730 uIU/mL 0.358-3.740 Above high no rmal Thyroid Stimulating Hormone JONATAN ([facility]) free T4 0.99 NG/dL 0.76-1.46 Free T4 [place] ([facility]) ID Date Data Source [id number] 09/25/2020 08:05:00 AM EST JONATAN ([facility]) Name Value Range Interpretation Code Description Data Angela rce(s) Supporting Document(s) triglycerides level 325 mg/dL <150 Above high normal Triglycer ides Level JONATAN ([facility]) HDL cholesterol 35 mg/dL >40 Below low normal HDL Cholestero l JONATAN ([facility]) Cholesterol in LDL [Mass/volume] in Serum or Plasma 106 mg/dL <100 Above high normal LDL Cholesterol JONATAN ([facility]) cholesterol level 206 mg/dL <200 Above high normal Cholesterol Level JONATAN ([facility]) cholesterol risk ratio <5 Above high normal Choles terol Risk Ratio JONATAN ([facility]) non-HDL-C 171 mg/dL Non-hdl-c JONATAN ([facility]) ID Date Data Source [id number] 09/25/2020 08:05:00 AM EST JONATAN ([facility]) Name Value Range Interpretation Code Description Data Angela rce(s) Supporting Document(s) glucose, fasting 175 mg/dL 70-100 Above high normal Glucose, Fas ting JONATAN ([facility]) creatinine for GFR 0.68 mg/dL 0.55-1.30 Creatinine for GF R JONATAN ([facility]) blood urea nitrogen 15 mg/dL 7-18 Blood Urea Nitro gen JONATAN ([facility]) sodium level 136 mEq/L 136-145 Sodium Level JONATAN ([facility]) potassium serum 4.6 mEq/L 3.5-5.1 Potassium Serum ATHE NA ([facility]) glomerular filtration rate > 60.0 >60 Glomerula r Filtration Rate JONATAN ([facility]) chloride level 100 mEq/L 98-107 Chloride Level JONATAN ([facility]) carbon dioxide level 28 mEq/L 21-32 Carbon Dioxide Level JONATAN ([facility]) anion gap 8 mEq/L 8-16 Anion Gap JONATAN ([facility]) ALT/SGPT 30 U/L 12-78 ALT/SGPT JONATAN ([facility]) calcium level 9.3 mg/dL 8.5-10.1 Calcium Level JONATAN ( [facility]) AST/SGOT 26 U/L 7-37 AST/SGOT JONATAN ([facility]) alkaline phosphatase 100 U/L 45-117 Alkaline Phosph atase JONATAN ([facility]) bilirubin,total 0.3 mg/dL 0.2-1.0 Bilirubin,total ATHE NA ([facility]) albumin 3.6 gm/dL 3.2-5.2 Albumin JONATAN ([facility]) total protein 7.2 gm/dL 6.4-8.2 Total Protein JONATAN ( [facility]) albumin/globulin ratio 1.2-2.2 Below low normal Albumin /globulin Ratio JONATAN ([facility]) ID Date Data Source [id number] 09/25/2020 08:05:00 AM EST JONATAN ([facility]) Name Value Range Interpretation Code Description Data Angela rce(s) Supporting Document(s) white blood count 7.0 10 4.0-10.0 White Blood Count JONATAN ([facility]) hemoglobin 12.7 g/dL 12.0-15.5 Hemoglobin JONATAN ([facility]) red blood count 5.04 10 4.00-5.40 Red Blood Count ATHE ([facility]) hematocrit 41.6 % 36.0-47.0 Hematocrit JONATAN ([facility]) mean corpuscular volume 82.5 fL 80.0-96.0 Mean Corpusc ular Volume JONATAN ([facility]) mean corpuscular hemoglobin 25.2 pg 27.0-33.0 Below low nor mal Mean Corpuscular Hemoglobin JONATAN ([facility]) red cell distribution width 14.7 % 11.5-14.5 Above high no rmal Red Cell Distribution Width JONATAN ([facility]) mean corpuscular HGB conc 30.5 g/dL 32.0-36.5 Below low rosalio l Mean Corpuscular HGB Conc JONATAN ([facility]) platelet count, automated 234 10 150-450 Platelet C ount, Automated JONATAN ([facility]) lymph % 39.3 % 24.0-44.0 Lymph % JONATAN ([facility]) neutrophils % 47.5 % 36.0-66.0 Neutrophils % JONATAN ( [facility]) baso % 0.4 % 0.0-1.0 Baso % JONATAN ([facility]) mono % 8.5 % 0.0-5.0 Above high normal [place] % JONATAN ([facility]) eos % 3.6 % 0.0-3.0 Above high normal Eos % JONATAN ([facility]) nucleated red blood cell % 0.0 % 0-0 Nucleated Red Blood Cell % JONATAN ([facility]) neutrophils # 3.3 10 1.5-8.5 Neutrophils # JONATAN ( [facility]) immature granulocyte % 0.7 % 0-3.0 Immature Gran ulocyte % JONATAN ([facility]) eos # 0.3 10 0.0-0.5 Eos # JONATAN ([facility]) mono # 0.6 10 0.0-0.8 [place] # JONATAN ([facility]) lymph # 2.7 10 1.5-5.0 Lymph # JONATAN ([facility]) baso # 0.0 10 0.0-0.2 Baso # JONATAN ([facility]) ID Date Data Source [id number] 09/25/2020 08:05:00 AM EST JONATAN ([facility]) Name Value Range Interpretation Code Description Data Angela rce(s) Supporting Document(s) estimated average glucose 174 mg/dL 60-110 Above high norm al Estimated Average Glucose FARWELL ([facility]) Hemoglobin A1c/Hemoglobin.total in Blood 7.7 % Hemoglobin a1C [facility] ([facility]) ID Date Data Source [id number] 09/25/2020 08:05:00 AM EST JONATAN ([facility]) Name Value Range Interpretation Code Description Data Angela rce(s) Supporting Document(s) total 25(oh) vitamin D 23.2 NG/mL 30.0-100.0 Below low normal T otal 25(Oh) Vitamin D JONATAN ([facility]) ID Date Data Source [id number] 09/25/2020 08:05:00 AM EST JONATAN ([facility]) Name Value Range Interpretation Code Description Data Angela rce(s) Supporting Document(s) thyroid stimulating hormone 5.730 uIU/mL 0.358-3.740 Above high no rmal Thyroid Stimulating Hormone JONATAN ([facility]) free T4 0.99 NG/dL 0.76-1.46 Free T4 [facility] ([facility]) ID Date Data Source [id number] 09/25/2020 08:05:00 AM EST JONATAN ([facility]) Name Value Range Interpretation Code Description Data Angela rce(s) Supporting Document(s) triglycerides level 325 mg/dL <150 Above high normal Triglycer ides Level JONATAN ([facility]) cholesterol level 206 mg/dL <200 Above high normal Cholesterol Level JONATAN ([facility]) HDL cholesterol 35 mg/dL >40 Below low normal HDL Cholestero l JONATAN ([facility]) non-HDL-C 171 mg/dL Non-hdl-c JONATAN ([facility]) Cholesterol in LDL [Mass/volume] in Serum or Plasma 106 mg/dL <100 Above high normal LDL Cholesterol JONATAN ([facility]) cholesterol risk ratio <5 Above high normal Choles terol Risk Ratio FARWELL ([facility]) ID Date Data Source [id number] 09/25/2020 08:05:00 AM EST JONATAN ([facility]) Name Value Range Interpretation Code Description Data Angela rce(s) Supporting Document(s) blood urea nitrogen 15 mg/dL 7-18 Blood Urea Nitro gen JONATAN ([facility]) glucose, fasting 175 mg/dL 70-100 Above high normal Glucose, Fas ting JONATAN ([facility]) sodium level 136 mEq/L 136-145 Sodium Level JONATAN ([facility]) creatinine for GFR 0.68 mg/dL 0.55-1.30 Creatinine for GF R JONATAN ([facility]) glomerular filtration rate > 60.0 >60 Glomerula r Filtration Rate JONATAN ([facility]) potassium serum 4.6 mEq/L 3.5-5.1 Potassium Serum ATHE NA ([facility]) chloride level 100 mEq/L 98-107 Chloride Level JONATAN ([facility]) carbon dioxide level 28 mEq/L 21-32 Carbon Dioxide Level JONATAN ([facility]) anion gap 8 mEq/L 8-16 Anion Gap JONATAN ([facility]) alkaline phosphatase 100 U/L 45-117 Alkaline Phosph atase JONATAN ([facility]) AST/SGOT 26 U/L 7-37 AST/SGOT [facility]AN ([facility]) ALT/SGPT 30 U/L 12-78 ALT/SGPT [facility]AN ([facility]) calcium level 9.3 mg/dL 8.5-10.1 Calcium Level JONATAN ( [facility]) albumin 3.6 gm/dL 3.2-5.2 Albumin JONATAN ([facility]) bilirubin,total 0.3 mg/dL 0.2-1.0 Bilirubin,total ATHE ([facility]) total protein 7.2 gm/dL 6.4-8.2 Total Protein JONATAN ( [facility]) albumin/globulin ratio 1.2-2.2 Below low normal Albumin /globulin Ratio JONATAN ([facility]) ID Date Data Source [id number] 09/25/2020 08:05:00 AM EST JONATAN ([facility]) Name Value Range Interpretation Code Description Data Angela rce(s) Supporting Document(s) red blood count 5.04 10 4.00-5.40 Red Blood Count ATHE ([facility]) hemoglobin 12.7 g/dL 12.0-15.5 Hemoglobin JONATAN ([facility]) white blood count 7.0 10 4.0-10.0 White Blood Count JONATAN ([facility]) mean corpuscular hemoglobin 25.2 pg 27.0-33.0 Below low nor mal Mean Corpuscular Hemoglobin JONATAN ([facility]) hematocrit 41.6 % 36.0-47.0 Hematocrit JONATAN ([facility]) mean corpuscular volume 82.5 fL 80.0-96.0 Mean Corpusc ular Volume JONATAN ([facility]) red cell distribution width 14.7 % 11.5-14.5 Above high no rmal Red Cell Distribution Width JONATAN ([facility]) platelet count, automated 234 10 150-450 Platelet C ount, Automated JONATAN ([facility]) mean corpuscular HGB conc 30.5 g/dL 32.0-36.5 Below low rosalio l Mean Corpuscular HGB Conc JONATAN ([facility]) eos % 3.6 % 0.0-3.0 Above high normal Eos % JON[facility]AN ([facility]) neutrophils % 47.5 % 36.0-66.0 Neutrophils % JONATAN ( [facility]) lymph % 39.3 % 24.0-44.0 Lymph % JONATAN ([facility]) mono % 8.5 % 0.0-5.0 Above high normal [place] % JONATAN ([facility]) nucleated red blood cell % 0.0 % 0-0 Nucleated Red Blood Cell % JONATAN ([facility]) baso % 0.4 % 0.0-1.0 Baso % JONATAN ([facility]) immature granulocyte % 0.7 % 0-3.0 Immature Gran ulocyte % JONATAN ([facility]) mono # 0.6 10 0.0-0.8 [place] # JONATAN ([facility]) neutrophils # 3.3 10 1.5-8.5 Neutrophils # JONATAN ( [facility]) eos # 0.3 10 0.0-0.5 Eos # JON[facility]AN ([facility]) lymph # 2.7 10 1.5-5.0 Lymph # [facility]ONATAN ([facility]) baso # 0.0 10 0.0-0.2 Baso # [facility]AN ([facility]) ID Date Data Source [id number] 09/25/2020 08:05:00 AM EST JONATAN ([facility]) Name Value Range Interpretation Code Description Data Angela rce(s) Supporting Document(s) estimated average glucose 174 mg/dL 60-110 Above high norm al Estimated Average Glucose JONATAN ([facility]) Hemoglobin A1c/Hemoglobin.total in Blood 7.7 % Hemoglobin a1C [facility] ([facility]) ID Date Data Source [id number] 09/25/2020 08:05:00 AM EST JONATAN ([facility]) Name Value Range Interpretation Code Description Data Angela rce(s) Supporting Document(s) total 25(oh) vitamin D 23.2 NG/mL 30.0-100.0 Below low normal T otal 25(Oh) Vitamin D [facility] ([facility]) ID Date Data Source [id number] 09/25/2020 08:05:00 AM EST JONATAN ([facility]) Name Value Range Interpretation Code Description Data Angela rce(s) Supporting Document(s) free T4 0.99 NG/dL 0.76-1.46 Free T4 JONATAN ([facility]) thyroid stimulating hormone 5.730 uIU/mL 0.358-3.740 Above high no rmal Thyroid Stimulating Hormone JONATNA ([facility]) ID Date Data Source [id number] 09/25/2020 08:05:00 AM EST JONATAN ([facility]) Name Value Range Interpretation Code Description Data Angela rce(s) Supporting Document(s) HDL cholesterol 35 mg/dL >40 Below low normal HDL Cholestero l JONATAN ([facility]) Cholesterol in LDL [Mass/volume] in Serum or Plasma 106 mg/dL <100 Above high normal LDL Cholesterol JONATAN ([facility]) cholesterol level 206 mg/dL <200 Above high normal Cholesterol Level JONATAN ([facility]) triglycerides level 325 mg/dL <150 Above high normal Triglycer ides Level JONATAN ([facility]) non-HDL-C 171 mg/dL Non-hdl-c JONATAN ([facility]) cholesterol risk ratio <5 Above high normal Choles terol Risk Ratio JONATAN ([facility]) ID Date Data Source [id number] 09/25/2020 08:05:00 AM EST JONATAN ([facility]) Name Value Range Interpretation Code Description Data Angela rce(s) Supporting Document(s) creatinine for GFR 0.68 mg/dL 0.55-1.30 Creatinine for GF R JONATAN ([facility]) blood urea nitrogen 15 mg/dL 7-18 Blood Urea Nitro gen JONATAN ([facility]) glucose, fasting 175 mg/dL 70-100 Above high normal Glucose, Fas ting JONATAN ([facility]) chloride level 100 mEq/L 98-107 Chloride Level [facility] ([facility]) potassium serum 4.6 mEq/L 3.5-5.1 Potassium Serum ATHE ([facility]) glomerular filtration rate > 60.0 >60 Glomerula r Filtration Rate JONATAN ([facility]) sodium level 136 mEq/L 136-145 Sodium Level JONATAN ([facility]) carbon dioxide level 28 mEq/L 21-32 Carbon Dioxide Level JONATAN ([facility]) calcium level 9.3 mg/dL 8.5-10.1 Calcium Level JONATAN ( [facility]) AST/SGOT 26 U/L 7-37 AST/SGOT [facility] ([facility]) anion gap 8 mEq/L 8-16 Anion Gap JON[facility]AN ([facility]) ALT/SGPT 30 U/L 12-78 ALT/SGPT [facility]AN ([facility]) bilirubin,total 0.3 mg/dL 0.2-1.0 Bilirubin,total ATHE ([facility]) alkaline phosphatase 100 U/L 45-117 Alkaline Phosph atase JONATAN ([facility]) total protein 7.2 gm/dL 6.4-8.2 Total Protein JONATAN ( [facility]) albumin/globulin ratio 1.2-2.2 Below low normal Albumin /globulin Ratio JONATAN ([facility]) albumin 3.6 gm/dL 3.2-5.2 Albumin [facility]AN ([facility]) ID Date Data Source [id number] 09/25/2020 08:05:00 AM EST JONATAN ([facility]) Name Value Range Interpretation Code Description Data Angela rce(s) Supporting Document(s) white blood count 7.0 10 4.0-10.0 White Blood Count JONATAN ([facility]) red blood count 5.04 10 4.00-5.40 Red Blood Count ATHE NA ([facility]) hematocrit 41.6 % 36.0-47.0 Hematocrit JONATAN ([facility]) hemoglobin 12.7 g/dL 12.0-15.5 Hemoglobin JONATAN ([facility]) mean corpuscular HGB conc 30.5 g/dL 32.0-36.5 Below low rosalio l Mean Corpuscular HGB Conc JONATAN ([facility]) red cell distribution width 14.7 % 11.5-14.5 Above high no rmal Red Cell Distribution Width JONATAN ([facility]) mean corpuscular volume 82.5 fL 80.0-96.0 Mean Corpusc ular Volume JONATAN ([facility]) mean corpuscular hemoglobin 25.2 pg 27.0-33.0 Below low nor mal Mean Corpuscular Hemoglobin JONTAAN ([facility]) lymph % 39.3 % 24.0-44.0 Lymph % JON[facility]AN ([facility]) platelet count, automated 234 10 150-450 Platelet C ount, Automated JONATAN ([facility]) neutrophils % 47.5 % 36.0-66.0 Neutrophils % JONATAN ( [facility]) baso % 0.4 % 0.0-1.0 Baso % JON[facility]AN ([facility]) mono % 8.5 % 0.0-5.0 Above high normal [place] % JONATAN ([facility]) eos % 3.6 % 0.0-3.0 Above high normal Eos % JONATAN ([facility]) neutrophils # 3.3 10 1.5-8.5 Neutrophils # JONATAN ( [facility]) nucleated red blood cell % 0.0 % 0-0 Nucleated Red Blood Cell % JONATAN ([facility]) immature granulocyte % 0.7 % 0-3.0 Immature Gran ulocyte % JONATAN ([facility]) lymph # 2.7 10 1.5-5.0 Lymph # JONATAN ([facility]) mono # 0.6 10 0.0-0.8 [place] # JONATAN ([facility]) baso # 0.0 10 0.0-0.2 Baso # [facility]ON[facility]AN ([facility]) eos # 0.3 10 0.0-0.5 Eos # [facility]AN ([facility]) ID Date Data Source [id number] 09/25/2020 08:05:00 AM EST JONATAN ([facility]) Name Value Range Interpretation Code Description Data Angela rce(s) Supporting Document(s) estimated average glucose 174 mg/dL 60-110 Above high norm al Estimated Average Glucose JONATAN ([facility]) Hemoglobin A1c/Hemoglobin.total in Blood 7.7 % Hemoglobin a1C [place] ([facility]) ID Date Data Source [id number] 09/25/2020 08:05:00 AM EST JONATAN ([facility]) Name Value Range Interpretation Code Description Data Angela rce(s) Supporting Document(s) total 25(oh) vitamin D 23.2 NG/mL 30.0-100.0 Below low normal T otal 25(Oh) Vitamin D JONATAN ([facility]) ID Date Data Source [id number] 09/25/2020 08:05:00 AM EST JONATAN ([facility]) Name Value Range Interpretation Code Description Data Angela rce(s) Supporting Document(s) free T4 0.99 NG/dL 0.76-1.46 Free T4 JON[facility]AN ([facility]) thyroid stimulating hormone 5.730 uIU/mL 0.358-3.740 Above high no rmal Thyroid Stimulating Hormone JONATAN ([facility]) ID Date Data Source [id number] 09/25/2020 08:05:00 AM EST JON[place]AN ([facility]) Name Value Range Interpretation Code Description Data Angela rce(s) Supporting Document(s) triglycerides level 325 mg/dL <150 Above high normal Triglycer ides Level JONATAN ([facility]) cholesterol level 206 mg/dL <200 Above high normal Cholesterol Level JONATAN ([facility]) Cholesterol in LDL [Mass/volume] in Serum or Plasma 106 mg/dL <100 Above high normal LDL Cholesterol J[facility]ATAN ([facility]) cholesterol risk ratio <5 Above high normal Choles terol Risk Ratio JONATAN ([facility]) non-HDL-C 171 mg/dL Non-hdl-c JONATAN ([facility]) HDL cholesterol 35 mg/dL >40 Below low normal HDL Cholestero l JONATAN ([facility]) ID Date Data Source [id number] 09/25/2020 08:05:00 AM EST [place] ([facility]) Name Value Range Interpretation Code Description Data Angela rce(s) Supporting Document(s) glucose, fasting 175 mg/dL 70-100 Above high normal Glucose, Fas ting JONATAN ([facility]) creatinine for GFR 0.68 mg/dL 0.55-1.30 Creatinine for GF R JONATAN ([facility]) glomerular filtration rate > 60.0 >60 Glomerula r Filtration Rate JONATAN ([facility]) sodium level 136 mEq/L 136-145 Sodium Level JONATAN ([facility]) blood urea nitrogen 15 mg/dL 7-18 Blood Urea Nitro gen JONATAN ([facility]) potassium serum 4.6 mEq/L 3.5-5.1 Potassium Serum ATHE NA ([facility]) chloride level 100 mEq/L 98-107 Chloride Level JONATAN ([facility]) carbon dioxide level 28 mEq/L 21-32 Carbon Dioxide Level JONATAN ([facility]) ALT/SGPT 30 U/L 12-78 ALT/SGPT [facility]AN ([facility]) anion gap 8 mEq/L 8-16 Anion Gap JONATAN ([facility]) calcium level 9.3 mg/dL 8.5-10.1 Calcium Level JONATAN ( [facility]) AST/SGOT 26 U/L 7-37 AST/SGOT [facility]AN ([facility]) albumin 3.6 gm/dL 3.2-5.2 Albumin JON[facility]AN ([facility]) albumin/globulin ratio 1.2-2.2 Below low normal Albumin /globulin Ratio JONATAN ([facility]) alkaline phosphatase 100 U/L 45-117 Alkaline Phosph atase JONATAN ([facility]) bilirubin,total 0.3 mg/dL 0.2-1.0 Bilirubin,total ATHE NA ([facility]) total protein 7.2 gm/dL 6.4-8.2 Total Protein JONATAN ( [facility]) ID Date Data Source [id number] 09/25/2020 08:05:00 AM EST JONATAN ([facility]) Name Value Range Interpretation Code Description Data Angela rce(s) Supporting Document(s) white blood count 7.0 10 4.0-10.0 White Blood Count JONATAN ([facility]) red blood count 5.04 10 4.00-5.40 Red Blood Count ATHE ([facility]) hematocrit 41.6 % 36.0-47.0 Hematocrit JONATAN ([facility]) hemoglobin 12.7 g/dL 12.0-15.5 Hemoglobin JONATAN ([facility]) mean corpuscular HGB conc 30.5 g/dL 32.0-36.5 Below low rosalio l Mean Corpuscular HGB Conc JONATAN ([facility]) mean corpuscular volume 82.5 fL 80.0-96.0 Mean Corpusc ular Volume JONATAN ([facility]) mean corpuscular hemoglobin 25.2 pg 27.0-33.0 Below low nor mal Mean Corpuscular Hemoglobin JONATAN ([facility]) red cell distribution width 14.7 % 11.5-14.5 Above high no rmal Red Cell Distribution Width JONATAN ([facility]) lymph % 39.3 % 24.0-44.0 Lymph % JON[facility]AN ([facility]) neutrophils % 47.5 % 36.0-66.0 Neutrophils % JONATAN ( [facility]) platelet count, automated 234 10 150-450 Platelet C ount, Automated JONATAN ([facility]) mono % 8.5 % 0.0-5.0 Above high normal [place] % JONAATN ([facility]) immature granulocyte % 0.7 % 0-3.0 Immature Gran ulocyte % JONATAN ([facility]) baso % 0.4 % 0.0-1.0 Baso % JON[facility]AN ([facility]) eos % 3.6 % 0.0-3.0 Above high normal Eos % JONATAN ([facility]) mono # 0.6 10 0.0-0.8 [place] # JONATAN ([facility]) neutrophils # 3.3 10 1.5-8.5 Neutrophils # JONATAN ( [facility]) lymph # 2.7 10 1.5-5.0 Lymph # JON[facility]AN ([facility]) nucleated red blood cell % 0.0 % 0-0 Nucleated Red Blood Cell % JONATAN ([facility]) baso # 0.0 10 0.0-0.2 Baso # [facility]ON[facility]AN ([facility]) eos # 0.3 10 0.0-0.5 Eos # [facility]AN ([facility]) ID Date Data Source [id number] 09/25/2020 08:05:00 AM EST [place] ([facility]) Name Value Range Interpretation Code Description Data Angela rce(s) Supporting Document(s) Hemoglobin A1c/Hemoglobin.total in Blood 7.7 % Hemoglobin a1C JONATAN ([facility]) estimated average glucose 174 mg/dL 60-110 Above high norm al Estimated Average Glucose JONATAN ([facility]) ID Date Data Source [id number] 09/25/2020 08:05:00 AM EST JONATAN ([facility]) Name Value Range Interpretation Code Description Data Angela rce(s) Supporting Document(s) total 25(oh) vitamin D 23.2 NG/mL 30.0-100.0 Below low normal T otal 25(Oh) Vitamin D JONATAN ([facility]) ID Date Data Source [id number] 09/25/2020 08:05:00 AM EST JONATAN ([facility]) Name Value Range Interpretation Code Description Data Angela rce(s) Supporting Document(s) free T4 0.99 NG/dL 0.76-1.46 Free T4 J[facility]AN ([facility]) thyroid stimulating hormone 5.730 uIU/mL 0.358-3.740 Above high no rmal Thyroid Stimulating Hormone JONATAN ([facility]) ID Date Data Source [id number] 09/25/2020 08:05:00 AM EST JONATAN ([facility]) Name Value Range Interpretation Code Description Data Angela rce(s) Supporting Document(s) cholesterol level 206 mg/dL <200 Above high normal Cholesterol Level JONATAN ([facility]) triglycerides level 325 mg/dL <150 Above high normal Triglycer ides Level JONATAN ([facility]) HDL cholesterol 35 mg/dL >40 Below low normal HDL Cholestero l JONATAN ([facility]) Cholesterol in LDL [Mass/volume] in Serum or Plasma 106 mg/dL <100 Above high normal LDL Cholesterol J[facility]AN ([facility]) non-HDL-C 171 mg/dL Non-hdl-c JONATAN ([facility]) cholesterol risk ratio <5 Above high normal Choles terol Risk Ratio JONATAN ([facility]) ID Date Data Source [id number] 09/25/2020 08:05:00 AM EST JONATAN ([facility]) Name Value Range Interpretation Code Description Data Angela rce(s) Supporting Document(s) glucose, fasting 175 mg/dL 70-100 Above high normal Glucose, Fas ting JONATAN ([facility]) blood urea nitrogen 15 mg/dL 7-18 Blood Urea Nitro gen JONATAN ([facility]) creatinine for GFR 0.68 mg/dL 0.55-1.30 Creatinine for GF R JONATAN ([facility]) glomerular filtration rate > 60.0 >60 Glomerula r Filtration Rate JONATAN ([facility]) sodium level 136 mEq/L 136-145 Sodium Level JONATAN ([facility]) chloride level 100 mEq/L 98-107 Chloride Level JONATAN ([facility]) potassium serum 4.6 mEq/L 3.5-5.1 Potassium Serum ATHE ([facility]) carbon dioxide level 28 mEq/L 21-32 Carbon Dioxide Level [facility] ([facility]) calcium level 9.3 mg/dL 8.5-10.1 Calcium Level JONATAN ( [facility]) anion gap 8 mEq/L 8-16 Anion Gap JONATAN ([facility]) AST/SGOT 26 U/L 7-37 AST/SGOT [facility]AN ([facility]) ALT/SGPT 30 U/L 12-78 ALT/SGPT JON[facility]AN ([facility]) albumin 3.6 gm/dL 3.2-5.2 Albumin JONATAN ([facility]) bilirubin,total 0.3 mg/dL 0.2-1.0 Bilirubin,total [facility] [facility] alkaline phosphatase 100 U/L 45-117 Alkaline Phosph atase JONATAN ([facility]) total protein 7.2 gm/dL 6.4-8.2 Total Protein JONATAN ( [facility]) albumin/globulin ratio 1.2-2.2 Below low normal Albumin /globulin Ratio JONATAN ([facility]) ID Date Data Source [id number] 09/25/2020 08:05:00 AM EST JONATAN ([facility]) Name Value Range Interpretation Code Description Data Angela rce(s) Supporting Document(s) white blood count 7.0 10 4.0-10.0 White Blood Count JONATAN ([facility]) hemoglobin 12.7 g/dL 12.0-15.5 Hemoglobin JONATAN ([facility]) hematocrit 41.6 % 36.0-47.0 Hematocrit JONATAN ([facility]) red blood count 5.04 10 4.00-5.40 Red Blood Count ATHE NA ([facility]) mean corpuscular hemoglobin 25.2 pg 27.0-33.0 Below low nor mal Mean Corpuscular Hemoglobin JONATAN ([facility]) mean corpuscular HGB conc 30.5 g/dL 32.0-36.5 Below low rosalio l Mean Corpuscular HGB Conc JONATAN ([facility]) mean corpuscular volume 82.5 fL 80.0-96.0 Mean Corpusc ular Volume JONATAN ([facility]) neutrophils % 47.5 % 36.0-66.0 Neutrophils % JONATAN ( [facility]) red cell distribution width 14.7 % 11.5-14.5 Above high no rmal Red Cell Distribution Width JONATAN ([facility]) platelet count, automated 234 10 150-450 Platelet C ount, Automated JONATAN ([facility]) lymph % 39.3 % 24.0-44.0 Lymph % JONATAN ([facility]) baso % 0.4 % 0.0-1.0 Baso % JONATAN ([facility]) eos % 3.6 % 0.0-3.0 Above high normal Eos % JONATAN ([facility]) mono % 8.5 % 0.0-5.0 Above high normal [place] % JONATAN ([facility]) neutrophils # 3.3 10 1.5-8.5 Neutrophils # JONATAN ( [facility]) nucleated red blood cell % 0.0 % 0-0 Nucleated Red Blood Cell % JONATAN ([facility]) immature granulocyte % 0.7 % 0-3.0 Immature Gran ulocyte % JONATAN ([facility]) mono # 0.6 10 0.0-0.8 [place] # JONATAN ([facility]) lymph # 2.7 10 1.5-5.0 Lymph # JONATAN ([facility]) eos # 0.3 10 0.0-0.5 Eos # JONATAN ([facility]) baso # 0.0 10 0.0-0.2 Baso # JONATAN ([facility]) ID Date Data Source [id number] 09/25/2020 08:05:00 AM EST JONATAN ([facility]) Name Value Range Interpretation Code Description Data Angela rce(s) Supporting Document(s) estimated average glucose 174 mg/dL 60-110 Above high norm al Estimated Average Glucose JONATAN ([facility]) Hemoglobin A1c/Hemoglobin.total in Blood 7.7 % Hemoglobin a1C [place] ([facility]) ID Date Data Source [id number] 09/25/2020 08:05:00 AM EST JONATAN ([facility]) Name Value Range Interpretation Code Description Data Angela rce(s) Supporting Document(s) total 25(oh) vitamin D 23.2 NG/mL 30.0-100.0 Below low normal T otal 25(Oh) Vitamin D FARWELL ([facility]) ID Date Data Source [id number] 09/25/2020 08:05:00 AM EST JONATAN ([facility]) Name Value Range Interpretation Code Description Data Angela rce(s) Supporting Document(s) free T4 0.99 NG/dL 0.76-1.46 Free T4 JONATAN ([facility]) thyroid stimulating hormone 5.730 uIU/mL 0.358-3.740 Above high no rmal Thyroid Stimulating Hormone JONATAN ([facility]) ID Date Data Source [id number] 09/25/2020 08:05:00 AM EST JONATAN ([facility]) Name Value Range Interpretation Code Description Data Angela rce(s) Supporting Document(s) triglycerides level 325 mg/dL <150 Above high normal Triglycer ides Level JONATAN ([facility]) cholesterol level 206 mg/dL <200 Above high normal Cholesterol Level JONATAN ([facility]) Cholesterol in LDL [Mass/volume] in Serum or Plasma 106 mg/dL <100 Above high normal LDL Cholesterol JONATAN ([facility]) cholesterol risk ratio <5 Above high normal Choles terol Risk Ratio JONATAN ([facility]) non-HDL-C 171 mg/dL Non-hdl-c JONATAN ([facility]) HDL cholesterol 35 mg/dL >40 Below low normal HDL Cholestero l JONATAN ([facility]) ID Date Data Source [id number] 09/25/2020 08:05:00 AM EST JONATAN ([facility]) Name Value Range Interpretation Code Description Data Angela rce(s) Supporting Document(s) blood urea nitrogen 15 mg/dL 7-18 Blood Urea Nitro gen JONATAN ([facility]) glucose, fasting 175 mg/dL 70-100 Above high normal Glucose, Fas ting JONATAN ([facility]) glomerular filtration rate > 60.0 >60 Glomerula r Filtration Rate JONATAN ([facility]) creatinine for GFR 0.68 mg/dL 0.55-1.30 Creatinine for GF R JONATAN ([facility]) carbon dioxide level 28 mEq/L 21-32 Carbon Dioxide Level JONATAN ([facility]) potassium serum 4.6 mEq/L 3.5-5.1 Potassium Serum ATHE NA ([facility]) sodium level 136 mEq/L 136-145 Sodium Level JONATAN ([facility]) chloride level 100 mEq/L 98-107 Chloride Level JONATAN ([facility]) AST/SGOT 26 U/L 7-37 AST/SGOT JONATAN ([facility]) calcium level 9.3 mg/dL 8.5-10.1 Calcium Level JONATAN ( [facility]) ALT/SGPT 30 U/L 12-78 ALT/SGPT JONATAN ([facility]) anion gap 8 mEq/L 8-16 Anion Gap JONATAN ([facility]) bilirubin,total 0.3 mg/dL 0.2-1.0 Bilirubin,total ATHE NA ([facility]) albumin 3.6 gm/dL 3.2-5.2 Albumin JONATAN ([facility]) alkaline phosphatase 100 U/L 45-117 Alkaline Phosph atase JONATAN ([facility]) total protein 7.2 gm/dL 6.4-8.2 Total Protein JONATAN ( [facility]) albumin/globulin ratio 1.2-2.2 Below low normal Albumin /globulin Ratio JONATAN ([facility]) ID Date Data Source [id number] 09/25/2020 08:05:00 AM EST JONATAN ([facility]) Name Value Range Interpretation Code Description Data Angela rce(s) Supporting Document(s) white blood count 7.0 10 4.0-10.0 White Blood Count JONATAN ([facility]) red blood count 5.04 10 4.00-5.40 Red Blood Count ATHE ([facility]) hemoglobin 12.7 g/dL 12.0-15.5 Hemoglobin JONATAN ([facility]) mean corpuscular hemoglobin 25.2 pg 27.0-33.0 Below low nor mal Mean Corpuscular Hemoglobin JONATAN ([facility]) mean corpuscular volume 82.5 fL 80.0-96.0 Mean Corpusc ular Volume JONATAN ([facility]) hematocrit 41.6 % 36.0-47.0 Hematocrit JONATAN ([facility]) red cell distribution width 14.7 % 11.5-14.5 Above high no rmal Red Cell Distribution Width JONATAN ([facility]) neutrophils % 47.5 % 36.0-66.0 Neutrophils % JONATAN ( [facility]) platelet count, automated 234 10 150-450 Platelet C ount, Automated JONATAN ([facility]) mean corpuscular HGB conc 30.5 g/dL 32.0-36.5 Below low rosalio l Mean Corpuscular HGB Conc JONATAN ([facility]) mono % 8.5 % 0.0-5.0 Above high normal [place] % JONATAN ([facility]) lymph % 39.3 % 24.0-44.0 Lymph % JONATAN ([facility]) eos % 3.6 % 0.0-3.0 Above high normal Eos % JONATAN ([facility]) nucleated red blood cell % 0.0 % 0-0 Nucleated Red Blood Cell % JONATAN ([facility]) neutrophils # 3.3 10 1.5-8.5 Neutrophils # JONATAN ( [facility]) baso % 0.4 % 0.0-1.0 Baso % JONATAN ([facility]) immature granulocyte % 0.7 % 0-3.0 Immature Gran ulocyte % JONATAN ([facility]) baso # 0.0 10 0.0-0.2 Baso # JONATAN ([facility]) lymph # 2.7 10 1.5-5.0 Lymph # JONATAN ([facility]) eos # 0.3 10 0.0-0.5 Eos # JONATAN ([facility]) mono # 0.6 10 0.0-0.8 [place] # JONATAN ([facility]) ID Date Data Source [id number] 09/25/2020 08:05:00 AM EST JONATAN ([facility]) Name Value Range Interpretation Code Description Data Angela rce(s) Supporting Document(s) estimated average glucose 174 mg/dL 60-110 Above high norm al Estimated Average Glucose [facility] ([facility]) Hemoglobin A1c/Hemoglobin.total in Blood 7.7 % Hemoglobin a1C [facility] ([facility]) ID Date Data Source [id number] 09/25/2020 08:05:00 AM EST JONATAN ([facility]) Name Value Range Interpretation Code Description Data Angela rce(s) Supporting Document(s) total 25(oh) vitamin D 23.2 NG/mL 30.0-100.0 Below low normal T otal 25(Oh) Vitamin D F[facility]LL ([facility]) ID Date Data Source [id number] 09/25/2020 08:05:00 AM EST JONATAN ([facility]) Name Value Range Interpretation Code Description Data Angela rce(s) Supporting Document(s) free T4 0.99 NG/dL 0.76-1.46 Free T4 JONATAN ([facility]) thyroid stimulating hormone 5.730 uIU/mL 0.358-3.740 Above high no rmal Thyroid Stimulating Hormone JONATAN ([facility]) ID Date Data Source [id number] 09/25/2020 08:05:00 AM EST JONATAN ([facility]) Name Value Range Interpretation Code Description Data Angela rce(s) Supporting Document(s) cholesterol level 206 mg/dL <200 Above high normal Cholesterol Level JONATAN ([facility]) HDL cholesterol 35 mg/dL >40 Below low normal HDL Cholestero l JONATAN ([facility]) triglycerides level 325 mg/dL <150 Above high normal Triglycer ides Level JONATAN ([facility]) Cholesterol in LDL [Mass/volume] in Serum or Plasma 106 mg/dL <100 Above high normal LDL Cholesterol JONATAN ([facility]) cholesterol risk ratio <5 Above high normal Choles terol Risk Ratio JONATAN ([facility]) non-HDL-C 171 mg/dL Non-hdl-c JONATAN ([facility]) ID Date Data Source [id number] 09/25/2020 08:05:00 AM EST JONATAN ([facility]) Name Value Range Interpretation Code Description Data Angela rce(s) Supporting Document(s) glucose, fasting 175 mg/dL 70-100 Above high normal Glucose, Fas ting JONATAN ([facility]) glomerular filtration rate > 60.0 >60 Glomerula r Filtration Rate JONATAN ([facility]) sodium level 136 mEq/L 136-145 Sodium Level JONATAN ([facility]) blood urea nitrogen 15 mg/dL 7-18 Blood Urea Nitro gen JONATAN ([facility]) creatinine for GFR 0.68 mg/dL 0.55-1.30 Creatinine for GF R JONATAN ([facility]) potassium serum 4.6 mEq/L 3.5-5.1 Potassium Serum ATHE NA ([facility]) carbon dioxide level 28 mEq/L 21-32 Carbon Dioxide Level JONATAN ([facility]) chloride level 100 mEq/L 98-107 Chloride Level JONATAN ([facility]) anion gap 8 mEq/L 8-16 Anion Gap JONATAN ([facility]) calcium level 9.3 mg/dL 8.5-10.1 Calcium Level JONATAN ( [facility]) ALT/SGPT 30 U/L 12-78 ALT/SGPT JONATAN ([facility]) alkaline phosphatase 100 U/L 45-117 Alkaline Phosph atase JONATAN ([facility]) AST/SGOT 26 U/L 7-37 AST/SGOT JONATAN ([facility]) bilirubin,total 0.3 mg/dL 0.2-1.0 Bilirubin,total ATHE NA ([facility]) albumin 3.6 gm/dL 3.2-5.2 Albumin JONATAN ([facility]) total protein 7.2 gm/dL 6.4-8.2 Total Protein JONATAN ( [facility]) albumin/globulin ratio 1.2-2.2 Below low normal Albumin /globulin Ratio JONATAN ([facility]) ID Date Data Source [id number] 09/25/2020 08:05:00 AM EST JONATAN ([facility]) Name Value Range Interpretation Code Description Data Angela rce(s) Supporting Document(s) white blood count 7.0 10 4.0-10.0 White Blood Count JONATAN ([facility]) hematocrit 41.6 % 36.0-47.0 Hematocrit JONATAN ([facility]) red blood count 5.04 10 4.00-5.40 Red Blood Count ATHE ([facility]) hemoglobin 12.7 g/dL 12.0-15.5 Hemoglobin JONATAN ([facility]) mean corpuscular volume 82.5 fL 80.0-96.0 Mean Corpusc ular Volume JONATAN ([facility]) mean corpuscular HGB conc 30.5 g/dL 32.0-36.5 Below low rosalio l Mean Corpuscular HGB Conc JONATAN ([facility]) mean corpuscular hemoglobin 25.2 pg 27.0-33.0 Below low nor mal Mean Corpuscular Hemoglobin JONATAN ([facility]) platelet count, automated 234 10 150-450 Platelet C ount, Automated JONATAN ([facility]) neutrophils % 47.5 % 36.0-66.0 Neutrophils % JONATAN ( [facility]) lymph % 39.3 % 24.0-44.0 Lymph % JONATAN ([facility]) red cell distribution width 14.7 % 11.5-14.5 Above high no rmal Red Cell Distribution Width JONATAN ([facility]) mono % 8.5 % 0.0-5.0 Above high normal [place] % JONATAN ([facility]) baso % 0.4 % 0.0-1.0 Baso % JONATAN ([facility]) eos % 3.6 % 0.0-3.0 Above high normal Eos % JONATAN ([facility]) immature granulocyte % 0.7 % 0-3.0 Immature Gran ulocyte % JONATAN ([facility]) neutrophils # 3.3 10 1.5-8.5 Neutrophils # JONATAN ( [facility]) lymph # 2.7 10 1.5-5.0 Lymph # JOANTAN ([facility]) nucleated red blood cell % 0.0 % 0-0 Nucleated Red Blood Cell % JONATAN ([facility]) mono # 0.6 10 0.0-0.8 [place] # JONATAN ([facility]) baso # 0.0 10 0.0-0.2 Baso # JONATAN ([facility]) eos # 0.3 10 0.0-0.5 Eos # JONATAN ([facility]) ID Date Data Source [id number] 09/25/2020 08:05:00 AM EST JONATAN ([facility]) Name Value Range Interpretation Code Description Data Angela rce(s) Supporting Document(s) Hemoglobin A1c/Hemoglobin.total in Blood 7.7 % Hemoglobin a1C JONATAN ([facility]) estimated average glucose 174 mg/dL 60-110 Above high norm al Estimated Average Glucose JONATAN ([facility]) ID Date Data Source [id number] 09/25/2020 08:05:00 AM EST JONATAN ([facility]) Name Value Range Interpretation Code Description Data Angela rce(s) Supporting Document(s) total 25(oh) vitamin D 23.2 NG/mL 30.0-100.0 Below low normal T otal 25(Oh) Vitamin D [place] ([facility]) ID Date Data Source [id number] 09/25/2020 08:05:00 AM EST [place] ([facility]) Name Value Range Interpretation Code Description Data Angela rce(s) Supporting Document(s) thyroid stimulating hormone 5.730 uIU/mL 0.358-3.740 Above high no rmal Thyroid Stimulating Hormone JONATAN ([facility]) free T4 0.99 NG/dL 0.76-1.46 Free T4 [place] ([facility]) ID Date Data Source [id number] 09/25/2020 08:05:00 AM EST [place] ([facility]) Name Value Range Interpretation Code Description Data Angela rce(s) Supporting Document(s) triglycerides level 325 mg/dL <150 Above high normal Triglycer ides Level JONATAN ([facility]) Cholesterol in LDL [Mass/volume] in Serum or Plasma 106 mg/dL <100 Above high normal LDL Cholesterol JONATAN ([facility]) non-HDL-C 171 mg/dL Non-hdl-c JONATAN ([facility]) cholesterol level 206 mg/dL <200 Above high normal Cholesterol Level JONATAN ([facility]) HDL cholesterol 35 mg/dL >40 Below low normal HDL Cholestero l JONATAN ([facility]) cholesterol risk ratio <5 Above high normal Choles terol Risk Ratio JONATAN ([facility]) ID Date Data Source [id number] 09/25/2020 08:05:00 AM EST JONATAN ([facility]) Name Value Range Interpretation Code Description Data Angela rce(s) Supporting Document(s) glucose, fasting 175 mg/dL 70-100 Above high normal Glucose, Fas ting JONATAN ([facility]) glomerular filtration rate > 60.0 >60 Glomerula r Filtration Rate JONATAN ([facility]) blood urea nitrogen 15 mg/dL 7-18 Blood Urea Nitro gen JONATAN ([facility]) creatinine for GFR 0.68 mg/dL 0.55-1.30 Creatinine for GF R JONATAN ([facility]) sodium level 136 mEq/L 136-145 Sodium Level JONATAN ([facility]) chloride level 100 mEq/L 98-107 Chloride Level JONATAN ([facility]) potassium serum 4.6 mEq/L 3.5-5.1 Potassium Serum ATHE ([facility]) carbon dioxide level 28 mEq/L 21-32 Carbon Dioxide Level JONATAN ([facility]) anion gap 8 mEq/L 8-16 Anion Gap JONATAN ([facility]) calcium level 9.3 mg/dL 8.5-10.1 Calcium Level JONATAN ( [facility]) AST/SGOT 26 U/L 7-37 AST/SGOT JON[facility]AN ([facility]) alkaline phosphatase 100 U/L 45-117 Alkaline Phosph atase JONATAN ([facility]) bilirubin,total 0.3 mg/dL 0.2-1.0 Bilirubin,total ATHE NA ([facility]) ALT/SGPT 30 U/L 12-78 ALT/SGPT JONATAN ([facility]) total protein 7.2 gm/dL 6.4-8.2 Total Protein JONATAN ( [facility]) albumin 3.6 gm/dL 3.2-5.2 Albumin JONATAN ([facility]) albumin/globulin ratio 1.2-2.2 Below low normal Albumin /globulin Ratio JONATAN ([facility]) ID Date Data Source [id number] 09/25/2020 08:05:00 AM EST JONATAN ([facility]) Name Value Range Interpretation Code Description Data Angela rce(s) Supporting Document(s) white blood count 7.0 10 4.0-10.0 White Blood Count JONATAN ([facility]) hemoglobin 12.7 g/dL 12.0-15.5 Hemoglobin JONATAN ([facility]) red blood count 5.04 10 4.00-5.40 Red Blood Count ATHE NA ([facility]) mean corpuscular hemoglobin 25.2 pg 27.0-33.0 Below low nor mal Mean Corpuscular Hemoglobin JONATAN ([facility]) hematocrit 41.6 % 36.0-47.0 Hematocrit JONATAN ([facility]) mean corpuscular volume 82.5 fL 80.0-96.0 Mean Corpusc ular Volume JONATAN ([facility]) platelet count, automated 234 10 150-450 Platelet C ount, Automated JONATAN ([facility]) red cell distribution width 14.7 % 11.5-14.5 Above high no rmal Red Cell Distribution Width JONATAN ([facility]) mean corpuscular HGB conc 30.5 g/dL 32.0-36.5 Below low rosalio l Mean Corpuscular HGB Conc JONATAN ([facility]) lymph % 39.3 % 24.0-44.0 Lymph % JONATAN ([facility]) eos % 3.6 % 0.0-3.0 Above high normal Eos % JONATAN ([facility]) mono % 8.5 % 0.0-5.0 Above high normal [place] % JONATAN ([facility]) neutrophils % 47.5 % 36.0-66.0 Neutrophils % JONATAN ( [facility]) baso % 0.4 % 0.0-1.0 Baso % JONATAN ([facility]) immature granulocyte % 0.7 % 0-3.0 Immature Gran ulocyte % JONATAN ([facility]) nucleated red blood cell % 0.0 % 0-0 Nucleated Red Blood Cell % JONATAN ([facility]) neutrophils # 3.3 10 1.5-8.5 Neutrophils # JONATAN ( [facility]) lymph # 2.7 10 1.5-5.0 Lymph # JONATAN ([facility]) mono # 0.6 10 0.0-0.8 [place] # JONATAN ([facility]) eos # 0.3 10 0.0-0.5 Eos # JONATAN ([facility]) baso # 0.0 10 0.0-0.2 Baso # JONATAN ([facility]) ID Date Data Source [id number] 09/25/2020 08:05:00 AM EST JONATAN ([facility]) Name Value Range Interpretation Code Description Data Angela rce(s) Supporting Document(s) Hemoglobin A1c/Hemoglobin.total in Blood 7.7 % Hemoglobin a1C JONATAN ([facility]) estimated average glucose 174 mg/dL 60-110 Above high norm al Estimated Average Glucose [facility] ([facility]) ID Date Data Source [id number] 09/25/2020 08:05:00 AM EST JONATAN ([facility]) Name Value Range Interpretation Code Description Data Angela rce(s) Supporting Document(s) total 25(oh) vitamin D 23.2 NG/mL 30.0-100.0 Below low normal T otal 25(Oh) Vitamin D [facility] ([facility]) ID Date Data Source [id number] 09/25/2020 08:05:00 AM EST JONATAN ([facility]) Name Value Range Interpretation Code Description Data Angela rce(s) Supporting Document(s) thyroid stimulating hormone 5.730 uIU/mL 0.358-3.740 Above high no rmal Thyroid Stimulating Hormone JONATAN ([facility]) free T4 0.99 NG/dL 0.76-1.46 Free T4 [facility] ([facility]) ID Date Data Source [id number] 09/25/2020 08:05:00 AM EST [place] ([facility]) Name Value Range Interpretation Code Description Data Angela rce(s) Supporting Document(s) cholesterol level 206 mg/dL <200 Above high normal Cholesterol Level JONATAN ([facility]) triglycerides level 325 mg/dL <150 Above high normal Triglycer ides Level JONATAN ([facility]) HDL cholesterol 35 mg/dL >40 Below low normal HDL Cholestero l JONATAN ([facility]) Cholesterol in LDL [Mass/volume] in Serum or Plasma 106 mg/dL <100 Above high normal LDL Cholesterol JONATAN ([facility]) cholesterol risk ratio <5 Above high normal Choles terol Risk Ratio JONATAN ([facility]) non-HDL-C 171 mg/dL Non-hdl-c JONATAN ([facility]) ID Date Data Source [id number] 09/25/2020 08:05:00 AM EST JONATAN ([facility]) Name Value Range Interpretation Code Description Data Angela rce(s) Supporting Document(s) glucose, fasting 175 mg/dL 70-100 Above high normal Glucose, Fas ting JONATAN ([facility]) creatinine for GFR 0.68 mg/dL 0.55-1.30 Creatinine for GF R JONATAN ([facility]) blood urea nitrogen 15 mg/dL 7-18 Blood Urea Nitro gen JONATAN ([facility]) sodium level 136 mEq/L 136-145 Sodium Level JONATAN (No [facility]) glomerular filtration rate > 60.0 >60 Glomerula r Filtration Rate JONATAN ([facility]) chloride level 100 mEq/L 98-107 Chloride Level JONATAN ([facility]) carbon dioxide level 28 mEq/L 21-32 Carbon Dioxide Level JONATAN ([facility]) potassium serum 4.6 mEq/L 3.5-5.1 Potassium Serum ATHE NA ([facility]) anion gap 8 mEq/L 8-16 Anion Gap JONATAN ([facility]) calcium level 9.3 mg/dL 8.5-10.1 Calcium Level JONATAN ( [facility]) AST/SGOT 26 U/L 7-37 AST/SGOT JONATAN ([facility]) ALT/SGPT 30 U/L 12-78 ALT/SGPT JONATAN ([facility]) alkaline phosphatase 100 U/L 45-117 Alkaline Phosph atase JONATAN ([facility]) bilirubin,total 0.3 mg/dL 0.2-1.0 Bilirubin,total ATHE NA ([facility]) albumin/globulin ratio 1.2-2.2 Below low normal Albumin /globulin Ratio JONATAN ([facility]) albumin 3.6 gm/dL 3.2-5.2 Albumin JONATAN ([facility]) total protein 7.2 gm/dL 6.4-8.2 Total Protein JONATAN ( [facility]) ID Date Data Source [id number] 09/25/2020 08:05:00 AM EST JONATAN ([facility]) Name Value Range Interpretation Code Description Data Angela rce(s) Supporting Document(s) red blood count 5.04 10 4.00-5.40 Red Blood Count ATHE ([facility]) white blood count 7.0 10 4.0-10.0 White Blood Count JONATAN ([facility]) hemoglobin 12.7 g/dL 12.0-15.5 Hemoglobin JONATAN ([facility]) hematocrit 41.6 % 36.0-47.0 Hematocrit JONATAN ([facility]) mean corpuscular volume 82.5 fL 80.0-96.0 Mean Corpusc ular Volume JONATAN ([facility]) mean corpuscular hemoglobin 25.2 pg 27.0-33.0 Below low nor mal Mean Corpuscular Hemoglobin JONATAN ([facility]) mean corpuscular HGB conc 30.5 g/dL 32.0-36.5 Below low rosalio l Mean Corpuscular HGB Conc JONATAN ([facility]) red cell distribution width 14.7 % 11.5-14.5 Above high no rmal Red Cell Distribution Width JONATAN ([facility]) platelet count, automated 234 10 150-450 Platelet C ount, Automated JONATAN ([facility]) neutrophils % 47.5 % 36.0-66.0 Neutrophils % JONATAN ( [facility]) lymph % 39.3 % 24.0-44.0 Lymph % JONATAN ([facility]) mono % 8.5 % 0.0-5.0 Above high normal [place] % JONATAN ([facility]) eos % 3.6 % 0.0-3.0 Above high normal Eos % JONATAN ([facility]) baso % 0.4 % 0.0-1.0 Baso % JONATAN ([facility]) immature granulocyte % 0.7 % 0-3.0 Immature Gran ulocyte % JONATAN ([facility]) nucleated red blood cell % 0.0 % 0-0 Nucleated Red Blood Cell % JONATAN ([facility]) lymph # 2.7 10 1.5-5.0 Lymph # JONATAN ([facility]) neutrophils # 3.3 10 1.5-8.5 Neutrophils # JONATAN ( [facility]) mono # 0.6 10 0.0-0.8 [place] # JONATAN ([facility]) baso # 0.0 10 0.0-0.2 Baso # JONATAN ([facility]) eos # 0.3 10 0.0-0.5 Eos # JONATAN ([facility]) ID Date Data Source [id number] 09/25/2020 08:05:00 AM EST JONATAN ([facility]) Name Value Range Interpretation Code Description Data Angela rce(s) Supporting Document(s) Hemoglobin A1c/Hemoglobin.total in Blood 7.7 % Hemoglobin a1C JONATAN ([facility]) estimated average glucose 174 mg/dL 60-110 Above high norm al Estimated Average Glucose JONATAN ([facility]) ID Date Data Source [id number] 09/25/2020 08:05:00 AM EST JONATAN ([facility]) Name Value Range Interpretation Code Description Data Angela rce(s) Supporting Document(s) total 25(oh) vitamin D 23.2 NG/mL 30.0-100.0 Below low normal T otal 25(Oh) Vitamin D JONATAN ([facility]) ID Date Data Source [id number] 09/25/2020 08:05:00 AM EST JONATAN ([facility]) Name Value Range Interpretation Code Description Data Angela rce(s) Supporting Document(s) thyroid stimulating hormone 5.730 uIU/mL 0.358-3.740 Above high no rmal Thyroid Stimulating Hormone JONATAN ([facility]) free T4 0.99 NG/dL 0.76-1.46 Free T4 FARWELL ([facility]) ID Date Data Source [id number] 09/25/2020 08:05:00 AM EST JONATAN ([facility]) Name Value Range Interpretation Code Description Data Angela rce(s) Supporting Document(s) cholesterol level 206 mg/dL <200 Above high normal Cholesterol Level JONATAN ([facility]) triglycerides level 325 mg/dL <150 Above high normal Triglycer ides Level JONATAN ([facility]) cholesterol risk ratio <5 Above high normal Choles terol Risk Ratio JONATAN ([facility]) HDL cholesterol 35 mg/dL >40 Below low normal HDL Cholestero l JONATAN ([facility]) Cholesterol in LDL [Mass/volume] in Serum or Plasma 106 mg/dL <100 Above high normal LDL Cholesterol JONATAN ([facility]) non-HDL-C 171 mg/dL Non-hdl-c JONATAN ([facility]) ID Date Data Source [id number] 09/25/2020 08:05:00 AM EST JONATAN ([facility]) Name Value Range Interpretation Code Description Data Angela rce(s) Supporting Document(s) glucose, fasting 175 mg/dL 70-100 Above high normal Glucose, Fas ting JONATAN ([facility]) blood urea nitrogen 15 mg/dL 7-18 Blood Urea Nitro gen JONATAN ([facility]) sodium level 136 mEq/L 136-145 Sodium Level JONATAN (No [facility]) potassium serum 4.6 mEq/L 3.5-5.1 Potassium Serum ATHE NA ([facility]) glomerular filtration rate > 60.0 >60 Glomerula r Filtration Rate JONATAN ([facility]) creatinine for GFR 0.68 mg/dL 0.55-1.30 Creatinine for GF R JONATAN ([facility]) anion gap 8 mEq/L 8-16 Anion Gap JONATAN ([facility]) carbon dioxide level 28 mEq/L 21-32 Carbon Dioxide Level JONATAN ([facility]) chloride level 100 mEq/L 98-107 Chloride Level JONATAN ([facility]) AST/SGOT 26 U/L 7-37 AST/SGOT JONATAN ([facility]) alkaline phosphatase 100 U/L 45-117 Alkaline Phosph atase JONATAN ([facility]) calcium level 9.3 mg/dL 8.5-10.1 Calcium Level JONATAN ( [facility]) ALT/SGPT 30 U/L 12-78 ALT/SGPT JONATAN ([facility]) albumin/globulin ratio 1.2-2.2 Below low normal Albumin /globulin Ratio JONATAN ([facility]) albumin 3.6 gm/dL 3.2-5.2 Albumin JONATAN ([facility]) total protein 7.2 gm/dL 6.4-8.2 Total Protein JONATAN ( [facility]) bilirubin,total 0.3 mg/dL 0.2-1.0 Bilirubin,total ATHE NA ([facility]) ID Date Data Source [id number] 09/25/2020 08:05:00 AM EST JONATAN ([facility]) Name Value Range Interpretation Code Description Data Angela rce(s) Supporting Document(s) red blood count 5.04 10 4.00-5.40 Red Blood Count ATHE ([facility]) hemoglobin 12.7 g/dL 12.0-15.5 Hemoglobin JONATAN ([facility]) hematocrit 41.6 % 36.0-47.0 Hematocrit JONATAN ([facility]) white blood count 7.0 10 4.0-10.0 White Blood Count JONATAN ([facility]) mean corpuscular volume 82.5 fL 80.0-96.0 Mean Corpusc ular Volume JONATAN ([facility]) mean corpuscular hemoglobin 25.2 pg 27.0-33.0 Below low nor mal Mean Corpuscular Hemoglobin JONATAN ([facility]) mean corpuscular HGB conc 30.5 g/dL 32.0-36.5 Below low rosalio l Mean Corpuscular HGB Conc JONATAN ([facility]) red cell distribution width 14.7 % 11.5-14.5 Above high no rmal Red Cell Distribution Width JONATAN ([facility]) neutrophils % 47.5 % 36.0-66.0 Neutrophils % JONATAN ( [facility]) lymph % 39.3 % 24.0-44.0 Lymph % [place] ([facility]) platelet count, automated 234 10 150-450 Platelet C ount, Automated JONATAN ([facility]) mono % 8.5 % 0.0-5.0 Above high normal [place] % JONATAN ([facility]) eos % 3.6 % 0.0-3.0 Above high normal Eos % JONATAN ([facility]) baso % 0.4 % 0.0-1.0 Baso % JONATAN ([facility]) immature granulocyte % 0.7 % 0-3.0 Immature Gran ulocyte % JONATAN ([facility]) lymph # 2.7 10 1.5-5.0 Lymph # JONATAN ([facility]) neutrophils # 3.3 10 1.5-8.5 Neutrophils # JONATAN ( [facility]) nucleated red blood cell % 0.0 % 0-0 Nucleated Red Blood Cell % JONATAN ([facility]) mono # 0.6 10 0.0-0.8 [place] # JONATAN ([facility]) baso # 0.0 10 0.0-0.2 Baso # JONATAN ([facility]) eos # 0.3 10 0.0-0.5 Eos # JONATAN ([facility]) ID Date Data Source [id number] 09/25/2020 08:05:00 AM EST JONATAN ([facility]) Name Value Range Interpretation Code Description Data Angela rce(s) Supporting Document(s) thyroid stimulating hormone 5.730 uIU/mL 0.358-3.740 Above high no rmal Thyroid Stimulating Hormone FARWELL ([facility]) free T4 0.99 NG/dL 0.76-1.46 Free T4 [facility] ([facility]) ID Date Data Source [id number] 09/25/2020 08:05:00 AM EST JONATAN ([facility]) Name Value Range Interpretation Code Description Data Angela rce(s) Supporting Document(s) triglycerides level 325 mg/dL <150 Above high normal Triglycer ides Level JONATAN ([facility]) cholesterol level 206 mg/dL <200 Above high normal Cholesterol Level FARWELL ([facility]) Cholesterol in LDL [Mass/volume] in Serum or Plasma 106 mg/dL <100 Above high normal LDL Cholesterol JONATAN ([facility]) non-HDL-C 171 mg/dL Non-hdl-c JONATAN ([facility]) HDL cholesterol 35 mg/dL >40 Below low normal HDL Cholestero l FARWELL ([facility]) cholesterol risk ratio <5 Above high normal Choles terol Risk Ratio F[place]WELL ([facility]) ID Date Data Source [id number] 09/25/2020 08:05:00 AM EST F[place]WELL ([facility]) Name Value Range Interpretation Code Description Data Angela rce(s) Supporting Document(s) glucose, fasting 175 mg/dL 70-100 Above high normal Glucose, Fas ting F[facility]WELL ([facility]) blood urea nitrogen 15 mg/dL 7-18 Blood Urea Nitro gen [facility]WELL ([facility]) creatinine for GFR 0.68 mg/dL 0.55-1.30 Creatinine for GF R [facility]WELL ([facility]) glomerular filtration rate > 60.0 >60 Glomerula r Filtration Rate JONATAN ([facility]) chloride level 100 mEq/L 98-107 Chloride Level JONATAN ([facility]) potassium serum 4.6 mEq/L 3.5-5.1 Potassium Serum ATHE NA ([facility]) carbon dioxide level 28 mEq/L 21-32 Carbon Dioxide Level JONTAAN ([facility]) sodium level 136 mEq/L 136-145 Sodium Level JONATAN (No [facility]) AST/SGOT 26 U/L 7-37 AST/SGOT JONATAN ([facility]) calcium level 9.3 mg/dL 8.5-10.1 Calcium Level JONATAN ( [facility]) anion gap 8 mEq/L 8-16 Anion Gap JONATAN ([facility]) ALT/SGPT 30 U/L 12-78 ALT/SGPT JONATAN ([facility]) alkaline phosphatase 100 U/L 45-117 Alkaline Phosph atase JONATAN ([facility]) albumin 3.6 gm/dL 3.2-5.2 Albumin JONATAN ([facility]) total protein 7.2 gm/dL 6.4-8.2 Total Protein JONATAN ( [facility]) bilirubin,total 0.3 mg/dL 0.2-1.0 Bilirubin,total ATHE ([facility]) albumin/globulin ratio 1.2-2.2 Below low normal Albumin /globulin Ratio JONATAN ([facility]) ID Date Data Source [id number] 09/25/2020 08:05:00 AM EST JONATAN ([facility]) Name Value Range Interpretation Code Description Data Angela rce(s) Supporting Document(s) red blood count 5.04 10 4.00-5.40 Red Blood Count ATHE ([facility]) white blood count 7.0 10 4.0-10.0 White Blood Count JONATAN ([facility]) mean corpuscular volume 82.5 fL 80.0-96.0 Mean Corpusc ular Volume JONATAN ([facility]) hematocrit 41.6 % 36.0-47.0 Hematocrit JONATAN ([facility]) hemoglobin 12.7 g/dL 12.0-15.5 Hemoglobin JONATAN ([facility]) red cell distribution width 14.7 % 11.5-14.5 Above high no rmal Red Cell Distribution Width JONATAN ([facility]) mean corpuscular hemoglobin 25.2 pg 27.0-33.0 Below low nor mal Mean Corpuscular Hemoglobin JONATAN ([facility]) mean corpuscular HGB conc 30.5 g/dL 32.0-36.5 Below low rosalio l Mean Corpuscular HGB Conc JONATAN ([facility]) platelet count, automated 234 10 150-450 Platelet C ount, Automated JONATAN ([facility]) lymph % 39.3 % 24.0-44.0 Lymph % JONATAN ([facility]) neutrophils % 47.5 % 36.0-66.0 Neutrophils % JONATAN ( [facility]) mono % 8.5 % 0.0-5.0 Above high normal [place] % JONATAN ([facility]) immature granulocyte % 0.7 % 0-3.0 Immature Gran ulocyte % JONATAN ([facility]) eos % 3.6 % 0.0-3.0 Above high normal Eos % JONATAN ([facility]) baso % 0.4 % 0.0-1.0 Baso % JONATAN ([facility]) lymph # 2.7 10 1.5-5.0 Lymph # JONATAN ([facility]) neutrophils # 3.3 10 1.5-8.5 Neutrophils # JONATAN ( [facility]) mono # 0.6 10 0.0-0.8 [place] # JONATAN ([facility]) nucleated red blood cell % 0.0 % 0-0 Nucleated Red Blood Cell % JONATAN ([facility]) eos # 0.3 10 0.0-0.5 Eos # JONATAN ([facility]) baso # 0.0 10 0.0-0.2 Baso # JONATAN ([facility]) ID Date Data Source [id number] 09/25/2020 08:05:00 AM EST JONATAN ([facility]) Name Value Range Interpretation Code Description Data Angela rce(s) Supporting Document(s) estimated average glucose 174 mg/dL 60-110 Above high norm al Estimated Average Glucose JONATAN ([facility]) Hemoglobin A1c/Hemoglobin.total in Blood 7.7 % Hemoglobin a1C JONATAN ([facility]) ID Date Data Source [id number] 09/25/2020 08:05:00 AM EST JONATAN ([facility]) Name Value Range Interpretation Code Description Data Angela rce(s) Supporting Document(s) total 25(oh) vitamin D 23.2 NG/mL 30.0-100.0 Below low normal T otal 25(Oh) Vitamin D JONATAN ([facility]) ID Date Data Source [id number] 09/25/2020 08:05:00 AM EST JONATAN ([facility]) Name Value Range Interpretation Code Description Data Angela rce(s) Supporting Document(s) thyroid stimulating hormone 5.730 uIU/mL 0.358-3.740 Above high no rmal Thyroid Stimulating Hormone JONATAN ([facility]) free T4 0.99 NG/dL 0.76-1.46 Free T4 JONATAN ([facility]) ID Date Data Source [id number] 09/25/2020 08:05:00 AM EST JONATAN ([facility]) Name Value Range Interpretation Code Description Data Angela rce(s) Supporting Document(s) cholesterol level 206 mg/dL <200 Above high normal Cholesterol Level JONATAN ([facility]) triglycerides level 325 mg/dL <150 Above high normal Triglycer ides Level JONATAN ([facility]) HDL cholesterol 35 mg/dL >40 Below low normal HDL Cholestero l JONATAN ([facility]) Cholesterol in LDL [Mass/volume] in Serum or Plasma 106 mg/dL <100 Above high normal LDL Cholesterol JONATAN ([facility]) non-HDL-C 171 mg/dL Non-hdl-c JONATAN ([facility]) cholesterol risk ratio <5 Above high normal Choles terol Risk Ratio JONATAN ([facility]) ID Date Data Source [id number] 09/25/2020 08:05:00 AM EST JONATAN ([facility]) Name Value Range Interpretation Code Description Data Angela rce(s) Supporting Document(s) glucose, fasting 175 mg/dL 70-100 Above high normal Glucose, Fas ting JONATAN ([facility]) blood urea nitrogen 15 mg/dL 7-18 Blood Urea Nitro gen JONATAN ([facility]) creatinine for GFR 0.68 mg/dL 0.55-1.30 Creatinine for GF R JONATAN ([facility]) sodium level 136 mEq/L 136-145 Sodium Level JONATAN (No [facility]) glomerular filtration rate > 60.0 >60 Glomerula r Filtration Rate JONATAN ([facility]) potassium serum 4.6 mEq/L 3.5-5.1 Potassium Serum ATHE NA ([facility]) chloride level 100 mEq/L 98-107 Chloride Level JONATAN ([facility]) anion gap 8 mEq/L 8-16 Anion Gap JONATAN ([facility]) carbon dioxide level 28 mEq/L 21-32 Carbon Dioxide Level JOANTAN ([facility]) ALT/SGPT 30 U/L 12-78 ALT/SGPT JONATAN ([facility]) calcium level 9.3 mg/dL 8.5-10.1 Calcium Level JONATAN ( [facility]) AST/SGOT 26 U/L 7-37 AST/SGOT JONATAN ([facility]) total protein 7.2 gm/dL 6.4-8.2 Total Protein JONATAN ( [facility]) alkaline phosphatase 100 U/L 45-117 Alkaline Phosph atase JONATAN ([facility]) bilirubin,total 0.3 mg/dL 0.2-1.0 Bilirubin,total ATHE NA ([facility]) albumin/globulin ratio 1.2-2.2 Below low normal Albumin /globulin Ratio JONATAN ([facility]) albumin 3.6 gm/dL 3.2-5.2 Albumin JONATAN ([facility]) ID Date Data Source [id number] 09/25/2020 08:05:00 AM EST JONATAN ([facility]) Name Value Range Interpretation Code Description Data Angela rce(s) Supporting Document(s) white blood count 7.0 10 4.0-10.0 White Blood Count JONATAN ([facility]) red blood count 5.04 10 4.00-5.40 Red Blood Count ATHE ([facility]) mean corpuscular volume 82.5 fL 80.0-96.0 Mean Corpusc ular Volume JONATAN ([facility]) hematocrit 41.6 % 36.0-47.0 Hematocrit JONATAN ([facility]) hemoglobin 12.7 g/dL 12.0-15.5 Hemoglobin JONATAN ([facility]) mean corpuscular hemoglobin 25.2 pg 27.0-33.0 Below low nor mal Mean Corpuscular Hemoglobin JONATAN ([facility]) red cell distribution width 14.7 % 11.5-14.5 Above high no rmal Red Cell Distribution Width JONATAN ([facility]) mean corpuscular HGB conc 30.5 g/dL 32.0-36.5 Below low rosalio l Mean Corpuscular HGB Conc JONATAN ([facility]) lymph % 39.3 % 24.0-44.0 Lymph % JONATAN ([facility]) platelet count, automated 234 10 150-450 Platelet C ount, Automated JONATAN ([facility]) neutrophils % 47.5 % 36.0-66.0 Neutrophils % JONATAN ( [facility]) baso % 0.4 % 0.0-1.0 Baso % JONATAN ([facility]) mono % 8.5 % 0.0-5.0 Above high normal [place] % JONATAN ([facility]) eos % 3.6 % 0.0-3.0 Above high normal Eos % JONATAN ([facility]) immature granulocyte % 0.7 % 0-3.0 Immature Gran ulocyte % JONATAN ([facility]) nucleated red blood cell % 0.0 % 0-0 Nucleated Red Blood Cell % JONATAN ([facility]) neutrophils # 3.3 10 1.5-8.5 Neutrophils # JONATAN ( [facility]) lymph # 2.7 10 1.5-5.0 Lymph # JONATAN ([facility]) mono # 0.6 10 0.0-0.8 [place] # JONATAN ([facility]) eos # 0.3 10 0.0-0.5 Eos # JONATAN ([facility]) baso # 0.0 10 0.0-0.2 Baso # JONATAN ([facility]) ID Date Data Source [id number] 09/25/2020 08:05:00 AM EST JONATAN ([facility]) Name Value Range Interpretation Code Description Data Angela rce(s) Supporting Document(s) Hemoglobin A1c/Hemoglobin.total in Blood 7.7 % Hemoglobin a1C [place] ([facility]) estimated average glucose 174 mg/dL 60-110 Above high norm al Estimated Average Glucose [facility] ([facility]) ID Date Data Source [id number] 09/25/2020 08:05:00 AM EST JONATAN ([facility]) Name Value Range Interpretation Code Description Data Angela rce(s) Supporting Document(s) total 25(oh) vitamin D 23.2 NG/mL 30.0-100.0 Below low normal T otal 25(Oh) Vitamin D [facility] ([facility]) ID Date Data Source [id number] 09/25/2020 08:05:00 AM EST JONATAN ([facility]) Name Value Range Interpretation Code Description Data Angela rce(s) Supporting Document(s) thyroid stimulating hormone 5.730 uIU/mL 0.358-3.740 Above high no rmal Thyroid Stimulating Hormone [facility] ([facility]) free T4 0.99 NG/dL 0.76-1.46 Free T4 JONATAN ([facility]) ID Date Data Source [id number] 09/25/2020 08:05:00 AM EST JONATAN ([facility]) Name Value Range Interpretation Code Description Data Angela rce(s) Supporting Document(s) triglycerides level 325 mg/dL <150 Above high normal Triglycer ides Level JONATAN ([facility]) cholesterol level 206 mg/dL <200 Above high normal Cholesterol Level JONATAN ([facility]) Cholesterol in LDL [Mass/volume] in Serum or Plasma 106 mg/dL <100 Above high normal LDL Cholesterol JONATAN ([facility]) cholesterol risk ratio <5 Above high normal Choles terol Risk Ratio JONATAN ([facility]) non-HDL-C 171 mg/dL Non-hdl-c JONATAN ([facility]) HDL cholesterol 35 mg/dL >40 Below low normal HDL Cholestero l JONATAN ([facility]) ID Date Data Source [id number] 09/25/2020 08:05:00 AM EST [place] ([facility]) Name Value Range Interpretation Code Description Data Angela rce(s) Supporting Document(s) glucose, fasting 175 mg/dL 70-100 Above high normal Glucose, Fas ting JONATAN ([facility]) blood urea nitrogen 15 mg/dL 7-18 Blood Urea Nitro gen JONATAN ([facility]) glomerular filtration rate > 60.0 >60 Glomerula r Filtration Rate JONATAN ([facility]) potassium serum 4.6 mEq/L 3.5-5.1 Potassium Serum ATHE NA ([facility]) sodium level 136 mEq/L 136-145 Sodium Level JONATAN (No [facility]) creatinine for GFR 0.68 mg/dL 0.55-1.30 Creatinine for GF R JONATAN ([facility]) calcium level 9.3 mg/dL 8.5-10.1 Calcium Level JONATAN ( [facility]) chloride level 100 mEq/L 98-107 Chloride Level FARWELL ([facility]) anion gap 8 mEq/L 8-16 Anion Gap JONATAN ([facility]) carbon dioxide level 28 mEq/L 21-32 Carbon Dioxide Level JONATAN ([facility]) alkaline phosphatase 100 U/L 45-117 Alkaline Phosph atase JONATAN ([facility]) AST/SGOT 26 U/L 7-37 AST/SGOT JONATAN ([facility]) bilirubin,total 0.3 mg/dL 0.2-1.0 Bilirubin,total ATHE NA ([facility]) ALT/SGPT 30 U/L 12-78 ALT/SGPT JONATAN ([facility]) albumin/globulin ratio 1.2-2.2 Below low normal Albumin /globulin Ratio JONATAN ([facility]) total protein 7.2 gm/dL 6.4-8.2 Total Protein JONATAN ( [facility]) albumin 3.6 gm/dL 3.2-5.2 Albumin JONATAN ([facility]) ID Date Data Source [id number] 09/25/2020 08:05:00 AM EST JONATAN ([facility]) Name Value Range Interpretation Code Description Data Angela rce(s) Supporting Document(s) red blood count 5.04 10 4.00-5.40 Red Blood Count ATHE ([facility]) white blood count 7.0 10 4.0-10.0 White Blood Count JONATAN ([facility]) hemoglobin 12.7 g/dL 12.0-15.5 Hemoglobin JONATAN ([facility]) mean corpuscular volume 82.5 fL 80.0-96.0 Mean Corpusc ular Volume JONATAN ([facility]) hematocrit 41.6 % 36.0-47.0 Hematocrit JONATAN ([facility]) mean corpuscular hemoglobin 25.2 pg 27.0-33.0 Below low nor mal Mean Corpuscular Hemoglobin JONATAN ([facility]) red cell distribution width 14.7 % 11.5-14.5 Above high no rmal Red Cell Distribution Width JONATAN ([facility]) platelet count, automated 234 10 150-450 Platelet C ount, Automated JONATAN ([facility]) mean corpuscular HGB conc 30.5 g/dL 32.0-36.5 Below low rosalio l Mean Corpuscular HGB Conc JONATAN ([facility]) eos % 3.6 % 0.0-3.0 Above high normal Eos % JONATAN ([facility]) neutrophils % 47.5 % 36.0-66.0 Neutrophils % JONATAN ( [facility]) lymph % 39.3 % 24.0-44.0 Lymph % JONATAN ([facility]) mono % 8.5 % 0.0-5.0 Above high normal Daggett % JONATAN ([facility]) nucleated red blood cell % 0.0 % 0-0 Nucleated Red Blood Cell % FARWELL ([facility]) immature granulocyte % 0.7 % 0-3.0 Immature Gran ulocyte % JONATAN ([facility]) baso % 0.4 % 0.0-1.0 Baso % JONATAN ([facility]) eos # 0.3 10 0.0-0.5 Eos # JONATAN ([facility]) neutrophils # 3.3 10 1.5-8.5 Neutrophils # JONATAN ( [facility]) lymph # 2.7 10 1.5-5.0 Lymph # JONATAN ([facility]) mono # 0.6 10 0.0-0.8 Daggett # JONATAN ([facility]) baso # 0.0 10 0.0-0.2 Baso # JONATAN ([facility]) ID Date Data Source [id number] 09/25/2020 08:05:00 AM EST FARWELL ([facility]) Name Value Range Interpretation Code Description Data Angela rce(s) Supporting Document(s) estimated average glucose 174 mg/dL 60-110 Above high norm al Estimated Average Glucose JONATAN ([facility]) Hemoglobin A1c/Hemoglobin.total in Blood 7.7 % Hemoglobin a1C FARWELL ([facility]) ID Date Data Source [id number] 09/25/2020 08:05:00 AM EST JONATAN ([facility]) Name Value Range Interpretation Code Description Data Angela rce(s) Supporting Document(s) total 25(oh) vitamin D 23.2 NG/mL 30.0-100.0 Below low normal T otal 25(Oh) Vitamin D JONATAN ([facility]) ID Date Data Source [id number] 09/25/2020 08:05:00 AM EST JONATAN ([facility]) Name Value Range Interpretation Code Description Data Angela rce(s) Supporting Document(s) free T4 0.99 NG/dL 0.76-1.46 Free T4 JONATAN ([facility]) thyroid stimulating hormone 5.730 uIU/mL 0.358-3.740 Above high no rmal Thyroid Stimulating Hormone JONATAN ([facility]) ID Date Data Source [id number] 09/25/2020 08:05:00 AM EST JONATAN ([facility]) Name Value Range Interpretation Code Description Data Angela rce(s) Supporting Document(s) cholesterol level 206 mg/dL <200 Above high normal Cholesterol Level JONATAN ([facility]) HDL cholesterol 35 mg/dL >40 Below low normal HDL Cholestero l JONATAN ([facility]) triglycerides level 325 mg/dL <150 Above high normal Triglycer ides Level JONATAN ([facility]) cholesterol risk ratio <5 Above high normal Choles terol Risk Ratio JONATAN ([facility]) Cholesterol in LDL [Mass/volume] in Serum or Plasma 106 mg/dL <100 Above high normal LDL Cholesterol JONATAN ([facility]) non-HDL-C 171 mg/dL Non-hdl-c JONATAN ([facility]) ID Date Data Source [id number] 09/25/2020 08:05:00 AM EST JONATAN ([facility]) Name Value Range Interpretation Code Description Data Angela rce(s) Supporting Document(s) glucose, fasting 175 mg/dL 70-100 Above high normal Glucose, Fas ting JONATAN ([facility]) blood urea nitrogen 15 mg/dL 7-18 Blood Urea Nitro gen JONATAN ([facility]) sodium level 136 mEq/L 136-145 Sodium Level JONATAN (No [facility]) potassium serum 4.6 mEq/L 3.5-5.1 Potassium Serum ATHE NA ([facility]) creatinine for GFR 0.68 mg/dL 0.55-1.30 Creatinine for GF R JONATAN ([facility]) glomerular filtration rate > 60.0 >60 Glomerula r Filtration Rate JONATAN ([facility]) calcium level 9.3 mg/dL 8.5-10.1 Calcium Level JONATAN ( [facility]) chloride level 100 mEq/L 98-107 Chloride Level JONATAN ([facility]) carbon dioxide level 28 mEq/L 21-32 Carbon Dioxide Level JONATAN ([facility]) anion gap 8 mEq/L 8-16 Anion Gap JONATAN ([facility]) ALT/SGPT 30 U/L 12-78 ALT/SGPT JONATAN ([facility]) alkaline phosphatase 100 U/L 45-117 Alkaline Phosph atase JONATAN ([facility]) bilirubin,total 0.3 mg/dL 0.2-1.0 Bilirubin,total ATHE ([facility]) total protein 7.2 gm/dL 6.4-8.2 Total Protein JONATAN ( [facility]) AST/SGOT 26 U/L 7-37 AST/SGOT JONATAN ([facility]) albumin 3.6 gm/dL 3.2-5.2 Albumin JONATAN ([facility]) albumin/globulin ratio 1.2-2.2 Below low normal Albumin /globulin Ratio JONATAN ([facility]) ID Date Data Source [id number] 09/25/2020 08:05:00 AM EST JONATAN ([facility]) Name Value Range Interpretation Code Description Data Angela rce(s) Supporting Document(s) white blood count 7.0 10 4.0-10.0 White Blood Count JONATAN ([facility]) red blood count 5.04 10 4.00-5.40 Red Blood Count ATHE NA ([facility]) mean corpuscular hemoglobin 25.2 pg 27.0-33.0 Below low nor mal Mean Corpuscular Hemoglobin JONATAN ([facility]) mean corpuscular volume 82.5 fL 80.0-96.0 Mean Corpusc ular Volume JONATAN ([facility]) hematocrit 41.6 % 36.0-47.0 Hematocrit JONATAN ([facility]) hemoglobin 12.7 g/dL 12.0-15.5 Hemoglobin JONATAN ([facility]) platelet count, automated 234 10 150-450 Platelet C ount, Automated JONATAN ([facility]) mean corpuscular HGB conc 30.5 g/dL 32.0-36.5 Below low rosalio l Mean Corpuscular HGB Conc JONATAN ([facility]) red cell distribution width 14.7 % 11.5-14.5 Above high no rmal Red Cell Distribution Width JONATAN ([facility]) lymph % 39.3 % 24.0-44.0 Lymph % JONATAN ([facility]) mono % 8.5 % 0.0-5.0 Above high normal Daggett % JONATAN ([facility]) neutrophils % 47.5 % 36.0-66.0 Neutrophils % JONATAN ( [facility]) eos % 3.6 % 0.0-3.0 Above high normal Eos % JONATAN ([facility]) immature granulocyte % 0.7 % 0-3.0 Immature Gran ulocyte % JONATAN ([facility]) nucleated red blood cell % 0.0 % 0-0 Nucleated Red Blood Cell % JONATAN ([facility]) baso % 0.4 % 0.0-1.0 Baso % JONATAN ([facility]) eos # 0.3 10 0.0-0.5 Eos # JONATAN ([facility]) mono # 0.6 10 0.0-0.8 Daggett # JONATAN ([facility]) lymph # 2.7 10 1.5-5.0 Lymph # JONATAN ([facility]) neutrophils # 3.3 10 1.5-8.5 Neutrophils # JONATAN ( [facility]) baso # 0.0 10 0.0-0.2 Baso # JONATAN ([facility]) ID Date Data Source [id number] 05/12/2020 09:24:31 AM EDT [facility] Measurements & CalculationsHeight: 64 inches (5 ft. [...] (ER) or urgent care clinic? No - [facility] Emergency room (ER) or urgent care date [...] done. Follow-Up Action: Referred to Behavioral Health Customer Assistance Associate for initial evaluationScreening, Brief Intervention, & Referral to Treatment (SBIRT)Pre- Screening Questions How many times have you have 4 or more drinks in a day? 0How many times have you used an illegal drug or used a prescription medication for a non-medical reason? 0Performed by: Coco Andrade MA, May 12, 2020 9:34 AMPatient History Medical History:AsthmaAnxietyDepressionMigrainesabscess on armsADHDSurgical History:D+CC-section m7Rarho tiedAbscess removed from right armCholecystectomyFamily History:Family History [...] during this visit, including review of any lwpe-amv-fofykeu medications, herbal therapies, and/or supplements.Allergy ReviewAllergy List [...] your health is? FairAssessment & Plan Problems:Assessed:Prediabetes (RLP99-R66.03) Assessment: Instructions: HGA1c trending up. Please continue lifestyle changes to include healthy diet and physical activities. Please try to limit sugars, carbohydrates and sodium in your diet. Please try to avoid processed foods.Person consulting for explanation of examination or test findings (ICD- V65.8) (BSZ58-T84.2) Assessment: Instructions: We have reviewed your lab re sults with you today. Please continue medications as prescribed. Please try to maintain healthy diet and physical activities.Please try to avoid processed foods. Please try to maintain adequate intake of water daily.Anxiety depression (ICD-300.09) (WQO27-A09.8) Assessment: Instructions: Please continue medications as prescribed. We have made a referral for you today. We will contact you to set this up.Hyperlipidemia, unspecified (CKE41-L55.5) Assessment: Instructions: LDL within normal limits, HDL [...] for explanation of examination or test findings (IQZ33-O05.2): Patient Instructions/Care Plan: Prediabetes: HGA1c trending up. [...] ORAL TABLET-as neededAllergies:* SEASONAL (Critical)Orders:Mental Health Consult [CPT-10725] COMP METABOLIC PANEL [CPT-66710] CBC W/DIFF [CPT-63736] HgBA1c [CPT-72844] LIPID PANEL [CPT-38168] TSH [CPT-02234] T-4 free [CPT-68435] Vitamin D 250H Unspecified [CPT-67976] URINALYSIS [CPT-57563] Urine Culture [CPT-94269] Adult - Ofc Vst, EST, Level IV [CPT-12391] Follow-Up Return to clinic: 3 months for follow up Clinical Visit Summary Completed Name Value Range Interpretation Code Description Data Angela rce(s) Supporting Document(s) ID Date Data Source [id number] 05/06/2020 10:30:00 AM EDT [facility] Value Range Interpretation Code Description Data Angela rce(s) Supporting Document(s) BG FASTING 154 mg/dL 70-100 [facility] ID Date Data Source [id number] 05/06/2020 10:30:00 AM EDT [facility] Name Value Range Interpretation Code Description Data Angela rce(s) Supporting Document(s) HGBA1C 6.8 % N [facility] ID Date Data Source [id number] 05/06/2020 10:30:00 AM EDT [facility] Name Value Range Interpretation Code Description Data Angela rce(s) Supporting Document(s) HCT 42.9 % 36.0-47.0 N [facility] HGB 13.6 g/dL 12.0-15.5 N [facility] MCH 31.7 G/DL pg 32.0-36.5 L [facility] MCHC 26.1 PG % 27.0-33.0 L [facility] PLATELETS 270 10 10*3/mm3 150-450 N [facility] RBC 5.22 10 10*6/mm3 4.00-5.40 N [facility] RDW 13.9 % 11.5-14.5 N [facility] WBC TOTAL 7.2 4.0-10.0 N [facility] ID Date Data Source [id number] 05/06/2020 10:27:16 AM EDT [facility] Labs In-House Blood TestsDate/Time Colle cted: May 06, 2020 10:27 AMTest Result Reference Range Normal ValueComments: blood drawn in right AC. Pt tolerated well. Salvador Corbinga ACQUISITIONS ANALYST, May 06, 2020 10:28 AMAssessment & Plan Orders:[id number] Vst-Est Level I [CPT-14384] [id number] - Venipuncture [CPT-53745] P M Name Value Range Interpretation Code Description Data Angela rce(s) Supporting Document(s) Procedure Social History Code Duration Value Status Description Data Source(s ) Smoking 06/18/2020 12:00:00 AM EDT Patient is a former smoker completed Patient is a former smoker TIN ([facility], ) Vital Signs ID Date Data Source UNK Name Value Range Interpretation Code Description Data Source(s) Diastolic blood pressure 78 mm[Hg] 78 mm[Hg] JONATAN ([facility]) Body height 64 [in_i] 64 [in_i] JONATAN ([facility]) Body mass index (BMI) [Ratio] 54.5 kg/m2 54.5 k g/m2 JONATAN ([facility]) Systolic blood pressure 112 mm[Hg] 112 mm[Hg] A THENA ([facility]) Body weight 5080 [oz_av] 5080 [oz_av] JONATAN ([facility]) Diastolic blood pressure 78 mm[Hg] 78 mm[Hg] JONATAN ([facility]) Body height 64 [in_i] 64 [in_i] JONATAN ([facility]) Body mass index (BMI) [Ratio] 54.5 kg/m2 54.5 k g/m2 JONATAN ([facility]) Systolic blood pressure 112 mm[Hg] 112 mm[Hg] [facility] Body weight 5080 [oz_av] 5080 [oz_av] JONATAN ([facility]) Diastolic blood pressure 78 mm[Hg] 78 mm[Hg] JONATAN ([facility]) Body height 64 [in_i] 64 [in_i] JONATAN ([facility]) Body mass index (BMI) [Ratio] 54.5 kg/m2 54.5 k g/m2 JONATAN ([facility]) Systolic blood pressure 112 mm[Hg] 112 mm[Hg] A THENA ([facility]) Body weight 5080 [oz_av] 5080 [oz_av] JONATAN ([facility]) Diastolic blood pressure 78 mm[Hg] 78 mm[Hg] JONATAN ([facility]) Body height 64 [in_i] 64 [in_i] JONATAN ([facility]) Body mass index (BMI) [Ratio] 54.5 kg/m2 54.5 k g/m2 JONATAN ([facility]) Systolic blood pressure 112 mm[Hg] 112 mm[Hg] [facility] Body weight 5080 [oz_av] 5080 [oz_av] JONATAN ([facility]) Diastolic blood pressure 78 mm[Hg] 78 mm[Hg] JONATAN ([facility]) Diastolic blood pressure 93 mm[Hg] 93 mm[Hg] JONATAN ([facility]) Body height 64 [in_i] 64 [in_i] JONATAN ([facility]) Body mass index (BMI) [Ratio] 55.3 kg/m2 55.3 k g/m2 JONATAN ([facility]) Systolic blood pressure 107 mm[Hg] 107 mm[Hg] A THENA ([facility]) Systolic blood pressure 129 mm[Hg] 129 mm[Hg] A THENA ([facility]) Body weight 5156 [oz_av] 5156 [oz_av] JONATAN ([facility]) Diastolic blood pressure 78 mm[Hg] 78 mm[Hg] JONATAN ([facility]) Diastolic blood pressure 93 mm[Hg] 93 mm[Hg] JONATAN ([facility]) Body height 64 [in_i] 64 [in_i] JONATAN ([facility]) Body mass index (BMI) [Ratio] 55.3 kg/m2 55.3 k g/m2 JONATAN ([facility]) Systolic blood pressure 107 mm[Hg] 107 mm[Hg] A THENA ([facility]) Systolic blood pressure 129 mm[Hg] 129 mm[Hg] A THENA ([facility]) Body weight 5156 [oz_av] 5156 [oz_av] JONATAN ([facility]) Diastolic blood pressure 78 mm[Hg] 78 mm[Hg] JONATAN ([facility]) Diastolic blood pressure 93 mm[Hg] 93 mm[Hg] JONATAN ([facility]) Body height 64 [in_i] 64 [in_i] JONATAN ([facility]) Body mass index (BMI) [Ratio] 55.3 kg/m2 55.3 k g/m2 JONATAN ([facility]) Systolic blood pressure 107 mm[Hg] 107 mm[Hg] A THENA ([facility]) Systolic blood pressure 129 mm[Hg] 129 mm[Hg] A THENA ([facility]) Body weight 5156 [oz_av] 5156 [oz_av] JONATAN ([facility]) Diastolic blood pressure 78 mm[Hg] 78 mm[Hg] JONATAN ([facility]) Diastolic blood pressure 93 mm[Hg] 93 mm[Hg] JONATAN ([facility]) Body height 64 [in_i] 64 [in_i] JONATAN ([facility]) Body mass index (BMI) [Ratio] 55.3 kg/m2 55.3 k g/m2 JONATAN ([facility]) Systolic blood pressure 107 mm[Hg] 107 mm[Hg] A THENA ([facility]) Systolic blood pressure 129 mm[Hg] 129 mm[Hg] A THENA ([facility]) Body weight 5156 [oz_av] 5156 [oz_av] JONATAN ([facility]) Body height 64 [in_i] 64 [in_i] JONATAN ([facility]) Body mass index (BMI) [Ratio] 55.3 kg/m2 55.3 k g/m2 JONATAN ([facility]) Systolic blood pressure 107 mm[Hg] 107 mm[Hg] A THENA ([facility]) Systolic blood pressure 129 mm[Hg] 129 mm[Hg] A THENA ([facility]) Diastolic blood pressure 78 mm[Hg] 78 mm[Hg] JONATAN ([facility]) Body weight 5156 [oz_av] 5156 [oz_av] JONATAN ([facility]) Diastolic blood pressure 93 mm[Hg] 93 mm[Hg] JONATAN ([facility]) Body mass index (BMI) [Ratio] 55.3 kg/m2 55.3 k g/m2 JONATAN ([facility]) Diastolic blood pressure 78 mm[Hg] 78 mm[Hg] JONATAN ([facility]) Diastolic blood pressure 93 mm[Hg] 93 mm[Hg] JONATAN ([facility]) Body height 64 [in_i] 64 [in_i] JONATAN ([facility]) Systolic blood pressure 107 mm[Hg] 107 mm[Hg] A THENA ([facility]) Systolic blood pressure 129 mm[Hg] 129 mm[Hg] A THENA ([facility]) Body weight 5156 [oz_av] 5156 [oz_av] JONATAN ([facility]) Diastolic blood pressure 78 mm[Hg] 78 mm[Hg] JONATAN ([facility]) Diastolic blood pressure 93 mm[Hg] 93 mm[Hg] JONATAN ([facility]) Body height 64 [in_i] 64 [in_i] JONATAN ([facility]) Body mass index (BMI) [Ratio] 55.3 kg/m2 55.3 k g/m2 JONATAN ([facility]) Systolic blood pressure 107 mm[Hg] 107 mm[Hg] A THENA ([facility]) Systolic blood pressure 129 mm[Hg] 129 mm[Hg] A THENA ([facility]) Body weight 5156 [oz_av] 5156 [oz_av] JONATAN ([facility]) Body height 64 [in_i] 64 [in_i] JONATAN ([facility]) Body height 64 [in_i] 64 [in_i] JONATAN ([facility]) Body height 64 [in_i] 64 [in_i] JONATAN ([facility]) Body height 64 [in_i] 64 [in_i] JONATAN ([facility]) Body height 64 [in_i] 64 [in_i] JONATAN ([facility]) Body height 64 [in_i] 64 [in_i] JONATAN ([facility]) Body height 64 [in_i] 64 [in_i] JONATAN ([facility]) Body height 64 [in_i] 64 [in_i] JONATAN ([facility]) Body height 64 [in_i] 64 [in_i] JONATAN ([facility]) Body height 64 [in_i] 64 [in_i] JONATAN ([facility]) Body height 64 [in_i] 64 [in_i] JONATAN ([facility]) Body height 64 [in_i] 64 [in_i] JONATAN ([facility]) Body height 64 [in_i] 64 [in_i] JONATAN ([facility]) Body height 64 [in_i] 64 [in_i] JONATAN ([facility]) Body height 64 [in_i] 64 [in_i] JONATAN ([facility]) Body height 64 [in_i] 64 [in_i] JONATAN ([facility]) Body height 64 [in_i] 64 [in_i] JONATAN ([facility]) Body height 64 [in_i] 64 [in_i] JONATAN ([facility]) Body height 64 [in_i] 64 [in_i] JONATAN ([facility]) Body height 64 [in_i] 64 [in_i] JONATAN ([facility]) Body height 64 [in_i] 64 [in_i] JONATAN ([facility]) Body height 64 [in_i] 64 [in_i] JONATAN ([facility]) Body height 64 [in_i] 64 [in_i] JONATAN ([facility]) Body height 64 [in_i] 64 [in_i] JONATAN ([facility]) Body height 64 [in_i] 64 [in_i] JONATAN ([facility]) Body height 64 [in_i] 64 [in_i] JONATAN ([facility]) Body height 64 [in_i] 64 [in_i] JONATAN ([facility]) Systolic blood pressure 110 mm[Hg] 110 mm[Hg] M EDELOINA ([facility], ) Diastolic blood pressure 80 mm[Hg] 80 mm[Hg] TIN ([facility], ) Heart rate 103 /min 103 /min [facility] ([facility], ) Oxygen saturation in Arterial blood by Pulse oximetry 97 % 97 % [facility] ([facility], ) Body height 64 [in_i] 64 [in_i] TIN ([facility], ) 5'4" Body weight 323.00 [lb_av] 323.00 [lb_av] MEDEN T ([facility], ) Body mass index (BMI) [Ratio] 55.4 kg/m2 55.4 k g/m2 MEDELOINA ([facility], ) [place] body weight 120 [lb_av] 120 [lb_av] MEDEN T ([facility], ) Body weight 146.513 kg 146.513 kg TIN ([facility], ) Body height 64 [in_i] 64 [in_i] JONATAN ([facility]) Diastolic blood pressure 89 mm[Hg] 89 mm[Hg] JONATAN ([facility]) Body mass index (BMI) [Ratio] 55.44 kg/m2 55.44 kg/m2 JONATAN ([facility]) Systolic blood pressure 128 mm[Hg] 128 mm[Hg] A THENA ([facility]) Body weight 5148.8 [oz_av] 5148.8 [oz_av] ATHEN A [facility] [facility] Body height 64 [in_i] 64 [in_i] JONATAN ([facility]) Body mass index (BMI) [Ratio] 55.44 kg/m2 55.44 kg/m2 JONATAN ([facility]) Systolic blood pressure 128 mm[Hg] 128 mm[Hg] A THENA ([facility]) Body weight 5148.8 [oz_av] 5148.8 [oz_av] ATHEN A ([facility]) Diastolic blood pressure 89 mm[Hg] 89 mm[Hg] JONATAN ([facility]) Diastolic blood pressure 89 mm[Hg] 89 mm[Hg] JONATAN ([facility]) Body mass index (BMI) [Ratio] 55.44 kg/m2 55.44 kg/m2 JONATAN ([facility]) Body height 64 [in_i] 64 [in_i] JONATAN ([facility]) Body weight 5148.8 [oz_av] 5148.8 [oz_av] ATHEN A ([facility]) Systolic blood pressure 128 mm[Hg] 128 mm[Hg] A THENA ([facility]) Diastolic blood pressure 89 mm[Hg] 89 mm[Hg] JONATAN ([facility]) Body height 64 [in_i] 64 [in_i] JONATAN ([facility]) Body mass index (BMI) [Ratio] 55.44 kg/m2 55.44 kg/m2 JONATAN ([facility]) Body weight 5148.8 [oz_av] 5148.8 [oz_av] ATHEN A ([facility]) Systolic blood pressure 128 mm[Hg] 128 mm[Hg] [facility] Diastolic blood pressure 89 mm[Hg] 89 mm[Hg] JONATAN ([facility]) Body height 64 [in_i] 64 [in_i] JONATAN ([facility]) Body mass index (BMI) [Ratio] 55.44 kg/m2 55.44 kg/m2 JONATAN ([facility]) Systolic blood pressure 128 mm[Hg] 128 mm[Hg] A THENA ([facility]) Body weight 5148.8 [oz_av] 5148.8 [oz_av] ATHEN A ([facility]) Diastolic blood pressure 89 mm[Hg] 89 mm[Hg] JONATAN ([facility]) Body height 64 [in_i] 64 [in_i] JONATAN ([facility]) Body mass index (BMI) [Ratio] 55.44 kg/m2 55.44 kg/m2 JONATAN ([facility]) Systolic blood pressure 128 mm[Hg] 128 mm[Hg] A THENA ([facility]) Body weight 5148.8 [oz_av] 5148.8 [oz_av] ATHEN A ([facility]) Diastolic blood pressure 89 mm[Hg] 89 mm[Hg] JONATAN ([facility]) Body height 64 [in_i] 64 [in_i] JONATAN ([facility]) Body mass index (BMI) [Ratio] 55.44 kg/m2 55.44 kg/m2 JONATAN ([facility]) Systolic blood pressure 128 mm[Hg] 128 mm[Hg] A THENA ([facility]) Body weight 5148.8 [oz_av] 5148.8 [oz_av] ATHEN A ([facility]) Diastolic blood pressure 89 mm[Hg] 89 mm[Hg] JONATAN ([facility]) Body height 64 [in_i] 64 [in_i] JONATAN ([facility]) Body mass index (BMI) [Ratio] 55.44 kg/m2 55.44 kg/m2 JONATAN ([facility]) Systolic blood pressure 128 mm[Hg] 128 mm[Hg] A THENA ([facility]) Body weight 5148.8 [oz_av] 5148.8 [oz_av] ATHEN A ([facility]) Diastolic blood pressure 89 mm[Hg] 89 mm[Hg] JONATAN ([facility]) Body height 64 [in_i] 64 [in_i] JONATAN ([facility]) Body mass index (BMI) [Ratio] 55.44 kg/m2 55.44 kg/m2 JONATAN ([facility]) Systolic blood pressure 128 mm[Hg] 128 mm[Hg] A THENA ([facility]) Body weight 5148.8 [oz_av] 5148.8 [oz_av] ATHEN A ([facility]) Diastolic blood pressure 89 mm[Hg] 89 mm[Hg] JONATAN ([facility]) Body height 64 [in_i] 64 [in_i] JONATAN ([facility]) Body mass index (BMI) [Ratio] 55.44 kg/m2 55.44 kg/m2 JONATAN ([facility]) Systolic blood pressure 128 mm[Hg] 128 mm[Hg] A THENA ([facility]) Body weight 5148.8 [oz_av] 5148.8 [oz_av] ATHEN A ([facility]) Diastolic blood pressure 89 mm[Hg] 89 mm[Hg] JONATAN ([facility]) Body height 64 [in_i] 64 [in_i] JONATAN ([facility]) Body mass index (BMI) [Ratio] 55.44 kg/m2 55.44 kg/m2 JONATAN ([facility]) Systolic blood pressure 128 mm[Hg] 128 mm[Hg] A THENA ([facility]) Body weight 5148.8 [oz_av] 5148.8 [oz_av] ATHEN A ([facility]) Diastolic blood pressure 89 mm[Hg] 89 mm[Hg] JONATAN ([facility]) Body height 64 [in_i] 64 [in_i] JONATAN ([facility]) Body mass index (BMI) [Ratio] 55.44 kg/m2 55.44 kg/m2 JONATAN ([facility]) Systolic blood pressure 128 mm[Hg] 128 mm[Hg] A THENA ([facility]) Body weight 5148.8 [oz_av] 5148.8 [oz_av] ATHEN A ([facility]) Diastolic blood pressure 89 mm[Hg] 89 mm[Hg] JONATAN ([facility]) Body height 64 [in_i] 64 [in_i] JONATAN ([facility]) Body mass index (BMI) [Ratio] 55.44 kg/m2 55.44 kg/m2 JONATAN ([facility]) Systolic blood pressure 128 mm[Hg] 128 mm[Hg] A THENA ([facility]) Body weight 5148.8 [oz_av] 5148.8 [oz_av] ATHEN A ([facility]) Diastolic blood pressure 89 mm[Hg] 89 mm[Hg] JONATAN ([facility]) Body height 64 [in_i] 64 [in_i] JONATAN ([facility]) Body mass index (BMI) [Ratio] 55.44 kg/m2 55.44 kg/m2 JONATAN ([facility]) Systolic blood pressure 128 mm[Hg] 128 mm[Hg] A THENA ([facility]) Body weight 5148.8 [oz_av] 5148.8 [oz_av] ATHEN A ([facility]) Diastolic blood pressure 89 mm[Hg] 89 mm[Hg] JONATAN ([facility]) Body height 64 [in_i] 64 [in_i] JONATAN ([facility]) Body mass index (BMI) [Ratio] 55.44 kg/m2 55.44 kg/m2 JONATAN ([facility]) Systolic blood pressure 128 mm[Hg] 128 mm[Hg] A THENA ([facility]) Body weight 5148.8 [oz_av] 5148.8 [oz_av] ATHEN A ([facility]) Diastolic blood pressure 89 mm[Hg] 89 mm[Hg] JONATAN ([facility]) Body height 64 [in_i] 64 [in_i] JONATAN ([facility]) Body mass index (BMI) [Ratio] 55.44 kg/m2 55.44 kg/m2 JONATAN ([facility]) Systolic blood pressure 128 mm[Hg] 128 mm[Hg] A THENA ([facility]) Body weight 5148.8 [oz_av] 5148.8 [oz_av] ATHEN A ([facility]) Diastolic blood pressure 89 mm[Hg] 89 mm[Hg] JONATAN ([facility]) Body height 64 [in_i] 64 [in_i] JONATAN ([facility]) Body mass index (BMI) [Ratio] 55.44 kg/m2 55.44 kg/m2 JONATAN ([facility]) Systolic blood pressure 128 mm[Hg] 128 mm[Hg] [facility] Body weight 5148.8 [oz_av] 5148.8 [oz_av] ATHEN A ([facility]) Body mass index (BMI) [Ratio] 55.44 kg/m2 55.44 kg/m2 JONATAN ([facility]) Diastolic blood pressure 89 mm[Hg] 89 mm[Hg] JONATAN ([facility]) Systolic blood pressure 128 mm[Hg] 128 mm[Hg] [facility] Body weight 5148.8 [oz_av] 5148.8 [oz_av] ATHEN A ([facility]) Body height 64 [in_i] 64 [in_i] JONATAN ([facility]) Diastolic blood pressure 89 mm[Hg] 89 mm[Hg] JONATAN ([facility]) Body height 64 [in_i] 64 [in_i] JONATAN ([facility]) Body mass index (BMI) [Ratio] 55.44 kg/m2 55.44 kg/m2 JONATAN ([facility]) Systolic blood pressure 128 mm[Hg] 128 mm[Hg] A THENA ([facility]) Body weight 5148.8 [oz_av] 5148.8 [oz_av] ATHEN A ([facility]) Diastolic blood pressure 89 mm[Hg] 89 mm[Hg] JONATAN ([facility]) Body height 64 [in_i] 64 [in_i] JONATAN ([facility]) Body mass index (BMI) [Ratio] 55.44 kg/m2 55.44 kg/m2 JONATAN ([facility]) Systolic blood pressure 128 mm[Hg] 128 mm[Hg] Lizzeth TOLBERT ([facility]) Body weight 5148.8 [oz_av] 5148.8 [oz_av] ATHEN A ([facility]) Patient Treatment Plan of Care Planned Activity Planned Date Details Description Data Source (s) ipratropium bromide 42 mcg (0.06 %) nasa l spray USE TWO SPRAYS IN EACH NOSTRIL ONCE DAILY 01/13/2021 12:00:00 AM EDT ATHEN A ([facility]) ipratropium bromide 42 mcg (0.06 %) nasa l spray USE TWO SPRAYS IN EACH NOSTRIL ONCE DAILY 01/13/2021 12:00:00 AM EDT ATHEN A ([facility]) ipratropium bromide 42 mcg (0.06 %) nasa l spray USE TWO SPRAYS IN EACH NOSTRIL ONCE DAILY 01/13/2021 12:00:00 AM EDT ATHEN A ([facility]) ipratropium bromide 42 mcg (0.06 %) nasa l spray USE TWO SPRAYS IN EACH NOSTRIL ONCE DAILY 01/13/2021 12:00:00 AM EDT ATHEN A ([facility]) ipratropium bromide 42 mcg (0.06 %) nasa l spray USE TWO SPRAYS IN EACH NOSTRIL ONCE DAILY 01/13/2021 12:00:00 AM EDT ATHEN A ([facility]) ipratropium bromide 42 mcg (0.06 %) nasa l spray USE TWO SPRAYS IN EACH NOSTRIL ONCE DAILY 01/13/2021 12:00:00 AM EDT ATHEN A ([facility]) ipratropium bromide 42 mcg (0.06 %) nasa l spray USE TWO SPRAYS IN EACH NOSTRIL ONCE DAILY 01/13/2021 12:00:00 AM EDT ATHEN A ([facility]) Prednisone 10 MG Oral Tablet JONATAN ([facility]) Doxycycline Monohydrate 100 MG Oral Capsule JONATAN ([facility]) Prednisone 10 MG Oral Tablet JONATAN ([facility]) Doxycycline Monohydrate 100 MG Oral Capsule JONATAN ([facility]) Prednisone 10 MG Oral Tablet JONATAN ([facility]) Doxycycline Monohydrate 100 MG Oral Capsule JONATAN ([facility]) benzonatate 100 MG Oral Capsule JONATAN ([facility]) Prednisone 10 MG Oral Tablet JONATAN ([facility]) Ergocalciferol 91954 UNT Oral Capsule JONATAN ([facility]) Doxycycline Monohydrate 100 MG Oral Capsule JONATAN ([facility]) Prednisone 10 MG Oral Tablet JONATAN ([facility]) Doxycycline Monohydrate 100 MG Oral Capsule JONATAN ([facility]) benzonatate 100 MG Oral Capsule JONATAN ([facility]) Prednisone 10 MG Oral Tablet JONATAN ([facility]) Doxycycline Monohydrate 100 MG Oral Capsule JONATAN ([facility]) benzonatate 100 MG Oral Capsule JONATAN ([facility]) Prednisone 10 MG Oral Tablet JONATAN ([facility]) Doxycycline Monohydrate 100 MG Oral Capsule JONATAN ([facility]) benzonatate 100 MG Oral Capsule JONATAN ([facility]) Prednisone 10 MG Oral Tablet JONATAN ([facility]) Doxycycline Monohydrate 100 MG Oral Capsule JONATAN ([facility]) benzonatate 100 MG Oral Capsule JONATAN ([facility]) Doxycycline Monohydrate 100 MG Oral Capsule JONATAN ([facility]) benzonatate 100 MG Oral Capsule JONATAN ([facility]) Prednisone 10 MG Oral Tablet JONATAN ([facility]) Doxycycline Monohydrate 100 MG Oral Capsule JONATAN ([facility]) benzonatate 100 MG Oral Capsule JONATAN ([facility]) Prednisone 10 MG Oral Tablet JONATAN ([facility]) Doxycycline Monohydrate 100 MG Oral Capsule JONATAN ([facility]) Prednisone 10 MG Oral Tablet JONATAN ([facility]) Doxycycline Monohydrate 100 MG Oral Capsule JONATAN ([facility]) benzonatate 100 MG Oral Capsule JONATAN ([facility]) Prednisone 10 MG Oral Tablet JONATAN ([facility]) Doxycycline Monohydrate 100 MG Oral Capsule JONATAN ([facility]) benzonatate 100 MG Oral Capsule JONATAN ([facility]) Prednisone 10 MG Oral Tablet JONATAN ([facility]) Doxycycline Monohydrate 100 MG Oral Capsule JONATAN ([facility]) benzonatate 100 MG Oral Capsule JONATAN ([facility]) Prednisone 10 MG Oral Tablet JONATAN ([facility]) Doxycycline Monohydrate 100 MG Oral Capsule JONATAN ([facility]) benzonatate 100 MG Oral Capsule JONATAN ([facility]) Prednisone 10 MG Oral Tablet JONATAN ([facility]) Doxycycline Monohydrate 100 MG Oral Capsule JONATAN ([facility]) benzonatate 100 MG Oral Capsule JONATAN ([facility]) Prednisone 10 MG Oral Tablet JONATAN ([facility]) Doxycycline Monohydrate 100 MG Oral Capsule JONATAN ([facility]) benzonatate 100 MG Oral Capsule JONATAN ([facility]) Doxycycline Monohydrate 100 MG Oral Capsule JONATAN ([facility]) benzonatate 100 MG Oral Capsule JONATAN ([facility]) Prednisone 10 MG Oral Tablet JONATAN ([facility]) Prednisone 10 MG Oral Tablet JONATAN ([facility])
[2021-06-07 07:54] VITALS: O2SAT 95
--- NOTE | 2021-06-07 08:12 | REP ---
INDICATION: cough COMPARISON: 02/07/2020 TECHNIQUE: Portable AP view of the chest FINDINGS: The mediastinum and cardiac silhouette are stable and within normal limits for portable technique. The lung ardon are clear without acute consolidation, effusion, or pneumothorax. Skeletal structures are intact. IMPRESSION: No acute cardiopulmonary process appreciated. <Electronically signed by Odin Flaherty > 06/07/21 0811
[2021-06-07 09:17] LABS: BASO % 0.5 % (0.0-1.0); EOS # 0.1 10^3/uL (0.0-0.5); EOS % 1.2 % (0.0-3.0); HEMATOCRIT 40.2 % (36.0-47.0); HEMOGLOBIN 13.1 g/dl (12.0-15.5); LYMPH # 1.1 10^3/uL (1.5-5.0); LYMPH % 19.3 % (24.0-44.0); MEAN CORPUSCULAR HEMOGLOBIN 26.5 pg (27.0-33.0); MEAN CORPUSCULAR HGB CONC 32.6 g/dl (32.0-36.5); MEAN CORPUSCULAR VOLUME 81.4 fl (80.0-96.0); MONO # 0.7 10^3/uL (0.0-0.8); MONO % 12.3 % (2.0-8.0); NEUTROPHILS # 3.8 10^3/uL (1.5-8.5); NEUTROPHILS % 66.2 % (36.0-66.0); PLATELET COUNT, AUTOMATED 201 10^3/uL (150-450); RED BLOOD COUNT 4.94 10^6/uL (4.00-5.40); WHITE BLOOD COUNT 5.8 10^3/uL (4.0-10.0)
[2021-06-07 09:51] LABS: ALBUMIN 3.1 GM/DL (3.2-5.2); ALT/SGPT 49 U/L (12-78); BILIRUBIN,DIRECT 0.1 MG/DL (0.0-0.2); BILIRUBIN,TOTAL 0.3 MG/DL (0.2-1.0); BLOOD UREA NITROGEN 14 MG/DL (7-18); CALCIUM LEVEL 8.6 MG/DL (8.5-10.1); CARBON DIOXIDE LEVEL 23 MEQ/L (21-32); CHLORIDE LEVEL 105 MEQ/L (98-107); CK-MB VALUE MASS < 1.0 NG/ML (<3.6); CPK CREATINE PHOSPHOKINASE 53 U/L (26-192); CREATININE FOR GFR 0.65 MG/DL (0.55-1.30); FREE T4 1.03 NG/DL (0.76-1.46); GLOMERULAR FILTRATION RATE > 60.0 (>60); GLUCOSE, FASTING 183 MG/DL (70-100); MB/CK RELATIVE INDEX 1.89 (< OR =4); POTASSIUM SERUM 4.4 MEQ/L (3.5-5.1); SODIUM LEVEL 135 MEQ/L (136-145); TOTAL PROTEIN 7.4 GM/DL (6.4-8.2); TROPONIN I < 0.02 NG/ML (< 0.10)
--- NOTE | 2021-06-07 19:45 | ECGEPIP ---
[facility] - ED Test Date: 2021-06-07 Pat Name: SELWYN BARRETT Department: Room: - Gender: Female Behavioral Health Worker: SEE : 1980 Requested By: NNEKA Bryan Order Number: [id number] Reading MD: Willie Calix Measurements Intervals [place] Rate: 92 P: 42 WI: 132 QRS: 30 QRSD: 84 T: 15 QT: 368 QTc: 455 Interpretive Statements Normal sinus rhythm NSTTW ABNORMALITY(S) SIMILAR TO 09/05/15 Electronically Signed on 06-07-2021 19:45:23 EDT by Willie Calix
== END 2021-06-07 11:17 | disposition home or self-care (01) ==
LOC: M ED 06:09
DX: R05.9 Cough, unspecified (principal); U07.1 COVID-19; E11.9 Type 2 diabetes mellitus without complications; J45.909 Unspecified asthma, uncomplicated; Z79.899 Other long term (current) drug therapy

== ENCOUNTER 2021-06-08 10:09 | Outpatient (CLI) | payer OTHER ==
--- NOTE | 2021-06-07 13:02 | HPEPDOC ---
[facility] Medical History & Physical Date of Admission Jun 07, 2021 Date of Service: Jun 07, 2021 Attending Physician: WILLI CHAPMAN DO History and Physical CHIEF COMPLAINT: Cough HISTORY OF PRESENT ILLNESS: Patient is a 41-year-old female who presented to the emergency department today with chief complaint of cough and what she thought was bronchitis or worsening of her asthma for the past 1 to 2 days. Patient states that her son and her both had COVID-19 over the last week. Patient's came to the hospital on Tuesday, 6 days ago, for monoclonal antibody infusion. Patient developed a cough and thought this was about possibly worsening of her bronchitis or asthma and took a few nebulizers which did not help. Patient and suspected that she may have developed COVID-19 and de cided to come into the hospital. Patient tested positive for COVID-19. Patient had exertional pulse ox of 95%. Patient received the [employer] COVID-19 vaccination back in November 2020. Patient is otherwise feeling well today. PAST MEDICAL HISTORY: 1. Migraines. 2. asthma. 3. PTSD. 4. Depression 5. Anxiety 6. ADHD PAST SURGICAL HISTORY: 1. C-sections. SOCIAL HISTORY: Patient used to smoke but denies smoking quite some time. Patient will rarely drink alcohol and denies illicit drug use. Patient is currently attempting to go on disability FAMILY HISTORY: Patient's mother and father both had alcoholism and of complications of alcoholism ALLERGIES: Please see below. REVIEW OF SYSTEMS: General: Patient denies fevers HEENT: Patient denies headaches Cardiovascular: Patient denies chest pain Respiratory: Patient denies shortness of breath. Patient reports nonproductive cough GI: Patient denies abdominal pain, nausea, vomiting, diarrhea : Patient denies increased frequency or pain with urination Extremities: Patient denies swelling or pain in extremities Neurological: Patient denies numbness or tingling in legs Skin: Patient denies any new rashes or lesions. Hematologic: Patient denies any easy bruising. Lymphatic: Patient denies any lumps lumps or bumps in neck, axilla, or groin HOME MEDICATIONS: Please see below. PHYSICAL EXAMINATION: VITAL SIGNS: Temperature 98.4, pulse 89, respiratory rate 20, blood pressure 144/79, pulse oximetry 96% on room air. General: Alert and oriented female patient who was sitting up in bed when I walked in. Patient not appear to be in any acute distress. HEENT: Normocephalic, atraumatic, moist mucous membranes. Neck: No lymphadenopathy or thyromegaly Cardiac: Regular rate and rhythm, no murmurs, normal S1, normal S2 Pulm: Clear to auscultation bilaterally. No wheezes, rhonchi, rales Abd: Nondistended, nontender to palpation, normal bowel sounds Ext: No edema bilateral lower extremities Neuro: Patient was able to move all 4 extremities on command and reported equal sensation light touch in all 4 extremities. Skin: Skin of the head, neck, upper and lower extremities was examined did not show any evidence of rash or wounds. LABORATORY DATA: See below. IMAGING: Chest x-ray performed on 06/07/2021 is reported to show no acute cardiopulmonary process appreciated MICROBIOLOGY: Please see below. ASSESSMENT: 41-year-old female who presented to the emergency department with cough that was not responsive to her nebulizer treatment who was diagnosed with COVID-19 . PLAN: 1. COVID-19 infection. Patient was fully vaccinated with a [employer] vaccine in November 2020. Patient is agreeable to monoclonal's. I went through the consent form with the patient and signed this with the patient. Patient is aware of the risks and benefits of monoclonal antibody infusion. Patient will be discharged in the emergency department and will be called back with a scheduled time for antibody infusion. [employer] Support Specialist was handed the original consent form and a copy was made and placed in the secure folder in the office. Advised patient to come back if her symptoms worsen. 2. Elevated blood pressure without the diagnosis of hypertension. Patient had an elevated blood pressure reading in the emergency department. Patient is to follow-up with her primary care provider after her acute infection to continue to monitor this. Disposition: Patient will be admitted once a time becomes available for monoclonal infusion. Patient can receive the flu vaccination once the patient is feeling better. Home Medications Scheduled Cetirizine HCl (Cetirizine HCl) 10 Mg Tab, 1 TAB PO DAILY for allergy symptoms Divalproex Sodium (Divalproex Sodium) 500 Mg Tab, PO QHS Fluticasone Furoate (Arnuity Ellipta) 100 Mcg Blst.w.dev, 1 PUFF INH BID Guanfacine HCl (Guanfacine HCl ER) 2 Mg Tab.er.24h, 1 TAB PO DAILY Montelukast Sodium (Montelukast Sodium) 10 Mg Tablet, 1 TAB PO DAILY Sertraline HCl (Sertraline HCl) 50 Mg Tab, 100 MG PO QHS Scheduled PRN Albuterol Sulfate (Albuterol Sulfate Hfa) 8.5 Gm Hfa.aer.ad, 2 PUFFS INH Q4-6HP PRN for SHORTNESS OF BREATH Ondansetron (Ondansetron Odt) 4 Mg Tab.rapdis, 1 TAB PO BIDP PRN for NAUSEA Sumatriptan Succinate (Sumatriptan Succinate) 100 Mg Tab, 100 MG PO PRN PRN for MIGRAINE Tizanidine HCl (Tizanidine HCl) 4 Mg Tablet, 1 TAB PO QIDP PRN for pain Allergies Coded Allergies: No Known Allergies (Verified , 12/12/17) A-FIB/CHADSVASC A-FIB History Current/History of A-Fib/PAF?: No WILLI CHAPMAN DO Jun 07, 2021 13:02
[~2021-06-08] VITALS: Ht 162.6 cm; Wt 141.5 kg
[~2021-06-08 10:09] MED LIST changes: +ALBUTEROL 90 MCG/ACT 8GM HFA INHALER INH PRN; +ALBUTEROL SULFATE 2.5 MG/0.5 ML INH NEB SOLN INH PRN; +BAMLANIVIMAB 700 MG, ETESEVIMAB 1,400 MG in NS 250 ML IV ONE; +EPINEPHrine INJ 1 MG/ML 1ML AMP IM PRN; +NS 1,000 ML IV SCH; +diphenhydrAMINE 50MG/ML VIAL (J1200) IV PRN; +methylPREDNISolone 125MG 2ML VIAL IV PRN
[2021-06-08 10:25] VITALS: BP 149/77
[2021-06-08] MEDS ORDERED: NS 1,000 ML IV SCH (10:40)
[2021-06-08] MEDS ORDERED: ALBUTEROL 90 MCG/ACT 8GM HFA INHALER INH PRN (10:40)
[2021-06-08] MEDS ORDERED: methylPREDNISolone 125MG 2ML VIAL IV PRN (10:45)
[2021-06-08] MEDS ORDERED: diphenhydrAMINE 50MG/ML VIAL (J1200) IV PRN (10:45)
[2021-06-08] MEDS ORDERED: ALBUTEROL SULFATE 2.5 MG/0.5 ML INH NEB SOLN INH PRN (10:45)
[2021-06-08] MEDS ORDERED: EPINEPHrine INJ 1 MG/ML 1ML AMP IM PRN (10:45)
[2021-06-08 11:20] VITALS: BP 129/72
[2021-06-08 11:50] VITALS: BP 146/73
[2021-06-08] MEDS ORDERED: BAMLANIVIMAB 700 MG, ETESEVIMAB 1,400 MG in NS 250 ML IV ONE (12:00)
[2021-06-08 12:20] VITALS: BP 140/83
[2021-06-08 12:50] VITALS: BP 139/77
[2021-06-08 14:00] VITALS: BP 135/64
== END 2021-06-08 14:08 ==
LOC: M OPCLI4PR 10:09
PROVIDERS: ATTEND Family Medicine
DX: U07.1 COVID-19 (principal)
CPT/HCPCS: 96361; M0245

== ENCOUNTER → 2021-08-28 | Outpatient (CLI) | payer OTHER ==
[~2021-08-28] MED LIST changes: -ALBUTEROL 90 MCG/ACT 8GM HFA INHALER INH PRN; -ALBUTEROL SULFATE 2.5 MG/0.5 ML INH NEB SOLN INH PRN; -BAMLANIVIMAB 700 MG, ETESEVIMAB 1,400 MG in NS 250 ML IV ONE; -EPINEPHrine INJ 1 MG/ML 1ML AMP IM PRN; -MONT10TA10 PO; +MONT10TA97 PO; -NS 1,000 ML IV SCH; +TIZA10TA PO; -TIZA4TAB4 PO; -diphenhydrAMINE 50MG/ML VIAL (J1200) IV PRN; -methylPREDNISolone 125MG 2ML VIAL IV PRN
== END ==
LOC: M WUC 14:57
PROVIDERS: ATTEND Physician Assistant
DX: Z02.1 Encounter for pre-employment examination (principal)

== ENCOUNTER → 2021-12-10 | Outpatient (REF) | payer OTHER | LOC: M LAB REF 12:14 | PROVIDERS: ATTEND Physician Assistant | DX: R05.9 Cough, unspecified (principal); J02.9 Acute pharyngitis, unspecified ==

== ENCOUNTER → 2022-08-11 | Outpatient (CLI) | payer OTHER, MEDICAID ==
[~2022-08-11] MED LIST changes: +METF-838 PO
[2022-08-11 15:35] LABS: BASO % 0.5 % (0.0-1.0); EOS # 0.1 10^3/uL (0.0-0.5); EOS % 1.5 % (0.0-3.0); HEMATOCRIT 42.3 % (36.0-47.0); HEMOGLOBIN 13.1 g/dl (12.0-15.5); LYMPH # 3.7 10^3/uL (1.5-5.0); LYMPH % 43.2 % (24.0-44.0); MEAN CORPUSCULAR HEMOGLOBIN 25.1 pg (27.0-33.0); MEAN CORPUSCULAR VOLUME 81.2 fl (80.0-96.0); MONO # 0.6 10^3/uL (0.0-0.8); MONO % 7.4 % (2.0-8.0); NEUTROPHILS % 46.9 % (36.0-66.0); PLATELET COUNT, AUTOMATED 310 10^3/uL (150-450); RED BLOOD COUNT 5.21 10^6/uL (4.00-5.40); WHITE BLOOD COUNT 8.6 10^3/uL (4.0-10.0)
[2022-08-11 16:03] LABS: ALBUMIN 3.9 G/DL (3.2-5.2); ALKALINE PHOSPHATASE 92 U/L (46-116); ALT/SGPT 29 U/L (7.0-40); AST/SGOT 27 U/L (<34); BILIRUBIN,TOTAL 0.3 MG/DL (0.3-1.2); BLOOD UREA NITROGEN 13 MG/DL (9-23); CALCIUM LEVEL 9.4 MG/DL (8.5-10.1); CARBON DIOXIDE LEVEL 29 MMOL/L (20-31); CHLORIDE LEVEL 100 MMOL/L (98-107); CHOLESTEROL LEVEL 177 MG/DL (<200); CHOLESTEROL RISK RATIO 4.23 (<5); CREATININE FOR GFR 0.49 MG/DL (0.55-1.30); GLOMERULAR FILTRATION RATE > 60.0 (>58); GLUCOSE, FASTING 103 MG/DL (60-100); HDL CHOLESTEROL 41.8 MG/DL (>40); LDL CHOLESTEROL 96.8 MG/DL (<100); NON-HDL-C 135 MG/DL; POTASSIUM SERUM 4.5 MMOL/L (3.5-5.1); SODIUM LEVEL 136 MMOL/L (136-145); TOTAL PROTEIN 7.8 G/DL (5.7-8.2); TRIGLYCERIDES LEVEL 192 MG/DL (<150)
[2022-08-11 16:06] LABS: THYROID STIMULATING HORMONE 1.357 uIU/ML (0.55-4.78)
[2022-08-11 16:07] LABS: HEMOGLOBIN A1c 7.8 % (4.0-6.0)
== END ==
LOC: M PLALAB 14:11
PROVIDERS: ATTEND Physician Assistant
DX: E78.5 Hyperlipidemia, unspecified (principal); E11.9 Type 2 diabetes mellitus without complications; G43.909 Migraine, unspecified, not intractable, without status migrainosus

== ENCOUNTER → 2022-12-08 | Outpatient (CLI) | payer OTHER, MEDICAID ==
[2022-12-08 13:56] LABS: ALBUMIN 3.1 G/DL (3.2-5.2); ALKALINE PHOSPHATASE 100 U/L (46-116); ALT/SGPT 15 U/L (7.0-40); AST/SGOT 15 U/L (<34); BILIRUBIN,TOTAL 0.3 MG/DL (0.3-1.2); BLOOD UREA NITROGEN 12 MG/DL (9-23); CALCIUM LEVEL 8.7 MG/DL (8.5-10.1); CARBON DIOXIDE LEVEL 30 MMOL/L (20-31); CHLORIDE LEVEL 99 MMOL/L (98-107); CREATININE FOR GFR 0.67 MG/DL (0.55-1.30); GLOMERULAR FILTRATION RATE > 60.0 (>58); GLUCOSE, FASTING 195 MG/DL (60-100); POTASSIUM SERUM 4.5 MMOL/L (3.5-5.1); SODIUM LEVEL 136 MMOL/L (136-145); TOTAL PROTEIN 7.3 G/DL (5.7-8.2)
[2022-12-08 14:21] LABS: HEMOGLOBIN A1c 8.2 % (4.0-6.0)
== END ==
LOC: M PLALAB 11:49
PROVIDERS: ATTEND Physician Assistant
DX: E11.9 Type 2 diabetes mellitus without complications (principal)

== ENCOUNTER 2023-02-08 11:27 | Emergency (ER) | payer MEDICAID, OTHER ==
[~2023-02-08] VITALS: Ht 162.6 cm; Wt 127.3 kg
[2023-02-08] MEDS ORDERED: HYDR-643 (11:51)
[2023-02-08] MEDS ORDERED: ERGO500029 (11:51)
[2023-02-08] MEDS ORDERED: ATOR1TAB19 (11:51)
[2023-02-08 13:08] LABS: BASO % 0.3 % (0.0-1.0); EOS # 0.1 10^3/uL (0.0-0.5); EOS % 1.2 % (0.0-3.0); HEMATOCRIT 46.2 % (36.0-47.0); HEMOGLOBIN 14.9 g/dl (12.0-15.5); LYMPH # 2.8 10^3/uL (1.5-5.0); MEAN CORPUSCULAR HEMOGLOBIN 26.9 pg (27.0-33.0); MEAN CORPUSCULAR HGB CONC 32.3 g/dl (32.0-36.5); MEAN CORPUSCULAR VOLUME 83.5 fl (80.0-96.0); MONO # 0.8 10^3/uL (0.0-0.8); MONO % 7.2 % (2.0-8.0); NEUTROPHILS # 7.4 10^3/uL (1.5-8.5); NEUTROPHILS % 65.9 % (36.0-66.0); PLATELET COUNT, AUTOMATED 248 10^3/uL (150-450); RED BLOOD COUNT 5.53 10^6/uL (4.00-5.40); WHITE BLOOD COUNT 11.2 10^3/uL (4.0-10.0)
[2023-02-08 13:38] LABS: ALBUMIN 3.9 G/DL (3.2-5.2); ALKALINE PHOSPHATASE 91 U/L (46-116); ALT/SGPT 15 U/L (7.0-40); AST/SGOT 11 U/L (<34); BILIRUBIN,TOTAL 0.4 MG/DL (0.3-1.2); BLOOD UREA NITROGEN 17 MG/DL (9-23); CALCIUM LEVEL 9.4 MG/DL (8.5-10.1); CARBON DIOXIDE LEVEL 26 MMOL/L (20-31); CHLORIDE LEVEL 100 MMOL/L (98-107); CREATININE FOR GFR 0.49 MG/DL (0.55-1.30); GLOMERULAR FILTRATION RATE > 60.0 (>58); GLUCOSE, FASTING 137 MG/DL (60-100); HCG, SERUM QUALITATIVE NEGATIVE (NEGATIVE); POTASSIUM SERUM 4.3 MMOL/L (3.5-5.1); SODIUM LEVEL 136 MMOL/L (136-145); TOTAL PROTEIN 7.9 G/DL (5.7-8.2)
[2023-02-08] MEDS ORDERED: MECLIZINE 25 MG TABLET PO ONE (16:55)
[2023-02-08] MEDS ORDERED: physical therapy (17:59)
[2023-02-08] MEDS ORDERED: MECL1TAB31 PO (18:01)
[2023-02-08 18:13] VITALS: BP 134/66; TEMP 97.9; O2SAT 100
== END 2023-02-08 18:14 | disposition home or self-care (01) ==
LOC: M ED 11:27
DX: H81.4 Vertigo of central origin (principal); J45.909 Unspecified asthma, uncomplicated; F90.9 Attention-deficit hyperactivity disorder, unspecified type; F41.9 Anxiety disorder, unspecified; F32.A Depression, unspecified; F43.10 Post-traumatic stress disorder, unspecified; G43.909 Migraine, unspecified, not intractable, without status migrainosus; M54.9 Dorsalgia, unspecified; F12.90 Cannabis use, unspecified, uncomplicated

== ENCOUNTER → 2023-03-08 | Outpatient (CLI) | payer OTHER ==
[~2023-03-08] MED LIST changes: +ATOR1TAB19; +ERGO500029; +MECL1TAB31 PO; +physical therapy
[2023-03-08 15:50] LABS: BASO # 0.1 10^3/uL (0.0-0.2); BASO % 0.5 % (0.0-1.0); EOS # 0.2 10^3/uL (0.0-0.5); EOS % 1.5 % (0.0-3.0); HEMOGLOBIN 13.8 g/dl (12.0-15.5); LYMPH # 2.5 10^3/uL (1.5-5.0); LYMPH % 24.7 % (24.0-44.0); MEAN CORPUSCULAR HEMOGLOBIN 27.2 pg (27.0-33.0); MEAN CORPUSCULAR HGB CONC 32.1 g/dl (32.0-36.5); MEAN CORPUSCULAR VOLUME 84.8 fl (80.0-96.0); MONO # 0.6 10^3/uL (0.0-0.8); MONO % 6.1 % (2.0-8.0); NEUTROPHILS # 6.7 10^3/uL (1.5-8.5); NEUTROPHILS % 66.7 % (36.0-66.0); PLATELET COUNT, AUTOMATED 265 10^3/uL (150-450); RED BLOOD COUNT 5.07 10^6/uL (4.00-5.40)
[2023-03-08 15:52] LABS: ALBUMIN 3.4 G/DL (3.2-5.2); ALKALINE PHOSPHATASE 104 U/L (46-116); ALT/SGPT 47 U/L (7.0-40); AST/SGOT 40 U/L (<34); BILIRUBIN,TOTAL 0.4 MG/DL (0.3-1.2); BLOOD UREA NITROGEN 10 MG/DL (9-23); CALCIUM LEVEL 8.7 MG/DL (8.5-10.1); CARBON DIOXIDE LEVEL 30 MMOL/L (20-31); CHLORIDE LEVEL 101 MMOL/L (98-107); CHOLESTEROL LEVEL 189 MG/DL (<200); CHOLESTEROL RISK RATIO 4.57 (<5); CREATININE FOR GFR 0.44 MG/DL (0.55-1.30); GLOMERULAR FILTRATION RATE > 60.0 (>58); GLUCOSE, FASTING 208 MG/DL (60-100); HDL CHOLESTEROL 41.3 MG/DL (>40); NON-HDL-C 147.7 MG/DL; POTASSIUM SERUM 4.7 MMOL/L (3.5-5.1); SODIUM LEVEL 139 MMOL/L (136-145); TOTAL PROTEIN 7.3 G/DL (5.7-8.2); TRIGLYCERIDES LEVEL 487 MG/DL (<150)
[2023-03-08 15:58] LABS: FREE T4 0.87 NG/DL (0.89-1.76); THYROID STIMULATING HORMONE 1.577 uIU/ML (0.55-4.78)
[2023-03-08 15:59] LABS: TOTAL 25(OH) VITAMIN D 34.9 NG/ML (20.0-100.0)
[2023-03-08 16:06] LABS: HEMOGLOBIN A1c 7.3 % (4.0-6.0)
== END ==
LOC: M PLALAB 12:43
PROVIDERS: ATTEND Physician Assistant
DX: G43.909 Migraine, unspecified, not intractable, without status migrainosus (principal)

== ENCOUNTER → 2023-06-17 | Outpatient (CLI) | payer OTHER ==
[~2023-06-17] MED LIST changes: +MECL-209 PO; -MECL1TAB31 PO
== END ==
LOC: M PLAIMG 10:56
PROVIDERS: ATTEND Physician Assistant
DX: M25.561 Pain in right knee (principal)

== ENCOUNTER 2023-08-08 23:36 | Emergency (ER) | payer MEDICAID, OTHER ==
[~2023-08-08] VITALS: Ht 162.6 cm; Wt 127.3 kg
[2023-08-09 00:35] LABS: RSV AMPLIFICATION NEGATIVE (NEGATIVE)
[2023-08-09] MEDS ORDERED: BENZ200C70 PO (01:16)
[2023-08-09] MEDS ORDERED: BENZONATATE 100MG CAPSULE PO ONE (01:20)
[2023-08-09 01:34] VITALS: BP 130/64; TEMP 98.9; O2SAT 97
== END 2023-08-09 01:37 | disposition home or self-care (01) ==
LOC: M ED 23:36
DX: U07.1 COVID-19 (principal); Z20.822 Contact with and (suspected) exposure to COVID-19; Z79.899 Other long term (current) drug therapy; Z87.891 Personal history of nicotine dependence; J45.909 Unspecified asthma, uncomplicated; E11.9 Type 2 diabetes mellitus without complications; Z79.84 Long term (current) use of oral hypoglycemic drugs; Z87.442 Personal history of urinary calculi; Z87.440 Personal history of urinary (tract) infections; F41.9 Anxiety disorder, unspecified; F43.10 Post-traumatic stress disorder, unspecified; F90.9 Attention-deficit hyperactivity disorder, unspecified type; F32.A Depression, unspecified

== ENCOUNTER → 2023-09-01 | Outpatient (CLI) | payer OTHER ==
[~2023-09-01] MED LIST changes: +BENZ200C70 PO
[2023-09-01 14:14] LABS: THYROID STIMULATING HORMONE 1.121 uIU/ML (0.55-4.78)
[2023-09-01 14:15] LABS: ALBUMIN 3.6 G/DL (3.2-5.2); ALKALINE PHOSPHATASE 108 U/L (46-116); ALT/SGPT 29 U/L (7.0-40); AST/SGOT 22 U/L (<34); BILIRUBIN,TOTAL 0.5 MG/DL (0.3-1.2); BLOOD UREA NITROGEN 16 MG/DL (9-23); CARBON DIOXIDE LEVEL 28 MMOL/L (20-31); CHLORIDE LEVEL 101 MMOL/L (98-107); CHOLESTEROL LEVEL 206 MG/DL (<200); CHOLESTEROL RISK RATIO 4.86 (<5); CREATININE FOR GFR 0.48 MG/DL (0.55-1.30); GLOMERULAR FILTRATION RATE > 60.0 (>58); GLUCOSE, FASTING 301 MG/DL (60-100); HDL CHOLESTEROL 42.3 MG/DL (>40); LDL CHOLESTEROL 117.5 MG/DL (<100); NON-HDL-C 163.7 MG/DL; SODIUM LEVEL 136 MMOL/L (136-145); TOTAL PROTEIN 7.3 G/DL (5.7-8.2); TRIGLYCERIDES LEVEL 231 MG/DL (<150)
[2023-09-01 14:39] LABS: HEMOGLOBIN A1c 11.3 % (4.0-6.0)
== END ==
LOC: M PLALAB 10:19
PROVIDERS: ATTEND Physician Assistant
DX: E11.9 Type 2 diabetes mellitus without complications (principal); E78.5 Hyperlipidemia, unspecified; R74.8 Abnormal levels of other serum enzymes

== ENCOUNTER → 2023-12-14 | Outpatient (CLI) | payer MEDICAID, OTHER ==
[2023-12-14 10:38] LABS: HEMOGLOBIN A1c 6.6 % (4.0-6.0)
[2023-12-14 10:55] LABS: BLOOD UREA NITROGEN 16 MG/DL (9-23); CALCIUM LEVEL 9.1 MG/DL (8.5-10.1); CARBON DIOXIDE LEVEL 30 MMOL/L (20-31); CHLORIDE LEVEL 100 MMOL/L (98-107); CREATININE FOR GFR 0.43 MG/DL (0.55-1.30); GLOMERULAR FILTRATION RATE > 60.0 (>58); GLUCOSE, FASTING 115 MG/DL (60-100); POTASSIUM SERUM 4.8 MMOL/L (3.5-5.1); SODIUM LEVEL 137 MMOL/L (136-145)
== END ==
LOC: M PLALAB 08:39
PROVIDERS: ATTEND Physician Assistant
DX: E11.9 Type 2 diabetes mellitus without complications (principal)

== ENCOUNTER → 2024-01-18 | Outpatient (REF) | payer MEDICAID ==
[2024-01-18 18:22] LABS: Trichomonas vaginalis (AMP) NOT DETECTED (NEGATIVE)
[2024-01-18 18:45] LABS: GC DNA AMPLIFICATION NEGATIVE (NEGATIVE)
== END ==
LOC: M SFHCWAGY 17:06
PROVIDERS: ATTEND Nurse Practitioner Family
DX: Z12.4 Encounter for screening for malignant neoplasm of cervix (principal); Z11.3 Encounter for screening for infections with a predominantly sexual mode of transmission; R87.5 Abnormal microbiological findings in specimens from female genital organs

== ENCOUNTER → 2024-01-19 | Outpatient (REF) | payer MEDICAID, OTHER ==
[~2024-01-19] MED LIST changes: +ONDA-282 PO; -ONDA4TAB6 PO
== END ==
LOC: M SFHCWAGY 15:01
PROVIDERS: ATTEND Nurse Practitioner Family
DX: R30.0 Dysuria (principal)

== ENCOUNTER 2024-04-02 18:02 | Emergency (ER) | payer OTHER ==
[~2024-04-02] VITALS: Ht 162.6 cm; Wt 132.9 kg
[2024-04-02 18:08] VITALS: TEMP 99.1
[2024-04-02 19:04] LABS: BASO % 0.3 % (0.0-1.0); EOS # 0.1 10^3/uL (0.0-0.5); HEMATOCRIT 42.2 % (36.0-47.0); LYMPH # 1.4 10^3/uL (1.5-5.0); LYMPH % 11.4 % (24.0-44.0); MEAN CORPUSCULAR HEMOGLOBIN 27.7 pg (27.0-33.0); MEAN CORPUSCULAR HGB CONC 33.2 g/dl (32.0-36.5); MEAN CORPUSCULAR VOLUME 83.6 fl (80.0-96.0); MONO # 1.1 10^3/uL (0.0-0.8); MONO % 9.2 % (2.0-8.0); NEUTROPHILS # 9.3 10^3/uL (1.5-8.5); NEUTROPHILS % 77.8 % (36.0-66.0); PLATELET COUNT, AUTOMATED 208 10^3/uL (150-450); RED BLOOD COUNT 5.05 10^6/uL (4.00-5.40); WHITE BLOOD COUNT 11.9 10^3/uL (4.0-10.0)
[2024-04-02 19:30] LABS: ALBUMIN 3.4 G/DL (3.2-5.2); ALKALINE PHOSPHATASE 96 U/L (46-116); ALT/SGPT 19 U/L (7.0-40); AST/SGOT 16 U/L (<34); BILIRUBIN,DIRECT 0.1 MG/DL (<0.4); BILIRUBIN,TOTAL 0.3 MG/DL (0.3-1.2); BLOOD UREA NITROGEN 17 MG/DL (9-23); CALCIUM LEVEL 8.8 MG/DL (8.5-10.1); CARBON DIOXIDE LEVEL 26 MMOL/L (20-31); CHLORIDE LEVEL 107 MMOL/L (98-107); GLOMERULAR FILTRATION RATE > 60.0 (>58); GLUCOSE, FASTING 129 MG/DL (60-100); MAGNESIUM LEVEL 1.9 MG/DL (1.8-2.4); POTASSIUM SERUM 4.2 MMOL/L (3.5-5.1); SODIUM LEVEL 139 MMOL/L (136-145); TOTAL PROTEIN 7.1 G/DL (5.7-8.2)
[2024-04-02] MEDS ORDERED: PRED20TA PO (20:43)
[2024-04-02] MEDS ORDERED: AZIT-12 PO (20:43)
[2024-04-02 20:46] VITALS: BP 127/62; O2SAT 94
[2024-04-02] MEDS: AZITHROMYCIN 250MG TABLET PO ONE (21:03)
== END 2024-04-02 21:13 | disposition home or self-care (01) ==
LOC: M ED 18:02
DX: J45.901 Unspecified asthma with (acute) exacerbation (principal); A49.3 Mycoplasma infection, unspecified site; F10.10 Alcohol abuse, uncomplicated; F90.9 Attention-deficit hyperactivity disorder, unspecified type; G43.909 Migraine, unspecified, not intractable, without status migrainosus; E11.9 Type 2 diabetes mellitus without complications; M54.50 Low back pain, unspecified; F41.9 Anxiety disorder, unspecified; F32.A Depression, unspecified; Z79.4 Long term (current) use of insulin; Z79.52 Long term (current) use of systemic steroids; Z79.02 Long term (current) use of antithrombotics/antiplatelets; Z79.2 Long term (current) use of antibiotics; Z79.899 Other long term (current) drug therapy; Z87.442 Personal history of urinary calculi

== ENCOUNTER 2024-04-11 17:50 | Inpatient (IN) | payer MEDICAID ==
[~2024-04-11] VITALS: Ht 162.6 cm; Wt 138.7 kg
[~2024-04-11 17:50] MED LIST changes: +AZIT-12 PO; -ERGO500029; +ERGO500029 PO; +HYDR-643 PO; +PRED20TA PO
[2024-04-11 18:31] LABS: HEMATOCRIT 45.4 % (36.0-47.0); HEMOGLOBIN 14.8 g/dl (12.0-15.5); MEAN CORPUSCULAR HGB CONC 32.6 g/dl (32.0-36.5); MEAN CORPUSCULAR VOLUME 82.8 fl (80.0-96.0); PLATELET COUNT, AUTOMATED 228 10^3/uL (150-450); RED BLOOD COUNT 5.48 10^6/uL (4.00-5.40); WHITE BLOOD COUNT 10.7 10^3/uL (4.0-10.0)
[2024-04-11 18:51] LABS: AMPHETAMINES LEVEL URINE NEGATIVE (NEGATIVE)
[2024-04-11 18:52] LABS: BENZODIAZEPINES URINE NEGATIVE (NEGATIVE); CANNABINOIDS URINE NEGATIVE (NEGATIVE); COCAINE METABOLITE URINE NEGATIVE (NEGATIVE); METHADONE URINE NEGATIVE (NEGATIVE); OPIATES URINE NEGATIVE (NEGATIVE); PHENCYCLIDINE URINE NEGATIVE (NEGATIVE)
[2024-04-11 18:54] LABS: ETHYL ALCOHOL (ETHANOL) < 0.003 % (0.000-0.010)
[2024-04-11 18:56] LABS: ALBUMIN 3.7 G/DL (3.2-5.2); ALKALINE PHOSPHATASE 85 U/L (46-116); ALT/SGPT 21 U/L (7.0-40); AST/SGOT 12 U/L (<34); BARBITURATES URINE POSITIVE (NEGATIVE); BILIRUBIN,DIRECT < 0.1 MG/DL (<0.4); BILIRUBIN,TOTAL 0.3 MG/DL (0.3-1.2); BLOOD UREA NITROGEN 16 MG/DL (9-23); CALCIUM LEVEL 8.9 MG/DL (8.5-10.1); CARBON DIOXIDE LEVEL 27 MMOL/L (20-31); CHLORIDE LEVEL 104 MMOL/L (98-107); CREATININE FOR GFR 0.41 MG/DL (0.55-1.30); GLOMERULAR FILTRATION RATE > 60.0 (>58); GLUCOSE, FASTING 142 MG/DL (60-100); SALICYLATE LEVEL < 3.0 MG/DL (<30); SODIUM LEVEL 137 MMOL/L (136-145); TOTAL PROTEIN 7.6 G/DL (5.7-8.2)
[2024-04-11 18:58] LABS: THYROID STIMULATING HORMONE 1.086 uIU/ML (0.55-4.78)
[2024-04-11] MEDS ORDERED: METF500T13 PO (19:03)
[2024-04-11] MEDS ORDERED: ZOLO100T PO (19:03)
[2024-04-11] MEDS ORDERED: ATOR1TAB21 PO (19:03)
[2024-04-11] MEDS ORDERED: DIVA500T94 PO (19:03)
[2024-04-11] MEDS ORDERED: EXCETAB32 PO (19:10)
[2024-04-11] MEDS ORDERED: CVS1CAP2 PO (19:10)
[2024-04-11] MEDS ORDERED: JARD1TAB PO (19:10)
[2024-04-11] MEDS ORDERED: NAPR-885 PO (19:10)
[2024-04-11] MEDS ORDERED: FIOR1CAP PO (19:10)
[2024-04-11] MEDS ORDERED: CYAN2500 SL (19:10)
[2024-04-11] MEDS ORDERED: PROBCAP14 PO (19:10)
[2024-04-11] MEDS ORDERED: AZO1CAP PO (19:10)
[2024-04-11] MEDS ORDERED: CLIN1GEL22 TOP (19:10)
[2024-04-11] MEDS ORDERED: CINN500C15 PO (19:11)
[2024-04-11] MEDS ORDERED: HOME MED LIST COMPLETE! XX SCH (19:15)
[2024-04-11] MEDS ORDERED: MOM 30ML SUSPENSION UDC PO PRN (21:00)
[2024-04-11] MEDS ORDERED: MAALOX 30 ML SUSP *UDC PO PRN (21:00)
[2024-04-11 22:47] VITALS: BP 142/84; TEMP 98.1; O2SAT 95
[2024-04-11] MEDS: ACETAMINOPHEN TAB 650MG DOSE (2X325MG) PO PRN (23:28)
[2024-04-11] MEDS: diphenhydrAMINE 25MG CAP PO PRN (23:28)
[2024-04-12 06:19] VITALS: BP 126/76; TEMP 97.5; O2SAT 95
[2024-04-12] MEDS ORDERED: tiZANidine 4 MG TAB PO PRN (07:40)
[2024-04-12] MEDS ORDERED: ALBUTEROL 90 MCG/ACT 8GM HFA INHALER INH PRN (07:40)
[2024-04-12] MEDS: metFORMIN (GLUCOPHAGE) 500MG TAB PO SCH (08:33)
[2024-04-12] MEDS: EXCEDRIN MIGRAINE TABLET PO PRN (08:33)
[2024-04-12] MEDS: DIVALPROEX 500 MG TAB PO SCH (08:33)
[2024-04-12] MEDS: MUPIROCIN 2% OINT 22 GM TUBE TOP SCH (09:00)
[2024-04-12] MEDS ORDERED: GLUCOSE 4 GM CHEW PO PRN (11:20)
[2024-04-12] MEDS ORDERED: GLUCAGON INJ 1MG VIAL SC PRN (11:20)
[2024-04-12] MEDS ORDERED: DEXTROSE 50% 50ML SYRINGE IV PRN (11:20)
[2024-04-12] MEDS: LACTOBACILLUS ACIDOPHILUS CAP (BACID) PO SCH (11:21)
[2024-04-12] MEDS: INSULIN LISPRO (NovoLOG) PER UNIT SC SCH ×2 (12:16→20:14)
[2024-04-12 17:10] VITALS: BP 138/90; TEMP 96.8; O2SAT 97
[2024-04-12] MEDS: MONTELUKAST 10 MG TAB PO SCH (20:13)
[2024-04-12] MEDS: ATORVASTATIN 20 MG TAB PO SCH (20:13)
[2024-04-12] MEDS: SERTRALINE 100 MG TAB PO SCH (20:14)
[2024-04-12] MEDS: NAPROXEN 250 MG TAB PO SCH (20:14)
[2024-04-12] MEDS: traZODone 50 MG TAB PO PRN (21:22)
[2024-04-13 06:24] VITALS: BP 124/69; TEMP 97.5; O2SAT 95
[2024-04-13] MEDS: IBUPROFEN 400MG TAB PO PRN (08:53)
[2024-04-13] MEDS: LIDOCAINE 5% (LIDODERM) PATCH TD SCH (14:56)
[2024-04-13 18:27] VITALS: BP 138/79; TEMP 97.6; O2SAT 96
[2024-04-14 05:48] VITALS: BP 116/57; TEMP 97; O2SAT 93
[2024-04-14] MEDS: FIORICET TAB PO PRN (06:24)
[2024-04-14 15:46] VITALS: BP 113/57; TEMP 97.2; O2SAT 98
[2024-04-14] MEDS: PRAZOSIN 1 MG CAP PO SCH (20:14)
[2024-04-15 06:20] VITALS: BP 120/66; TEMP 98.1; O2SAT 92
[2024-04-15] MEDS: VITAMIN D 50,000 UNITS CAPSULE (ERGOCALCIFEROL 1.25MG) PO SCH (08:31)
[2024-04-15 16:29] VITALS: BP 119/57; TEMP 97.5; O2SAT 97
[2024-04-15 19:55] VITALS: BP 132/78
[2024-04-15] MEDS ORDERED: EMPAGLIFLOZIN 10 MG PO SCH (21:00)
[2024-04-15] MEDS: diphenhydrAMINE 50MG CAP PO PRN (22:58)
[2024-04-16 05:37] VITALS: BP 123/64; TEMP 98.6; O2SAT 98
[2024-04-16] MEDS: CEPACOL LOZENGE PO PRN (06:09)
[2024-04-16] MEDS: LOPERAMIDE 2 MG CAPLET PO PRN (15:30)
[2024-04-16 18:29] VITALS: BP 141/63; TEMP 98.6
[2024-04-16 20:47] VITALS: BP 129/81
[2024-04-17 06:04] VITALS: BP 116/62; TEMP 97.5; O2SAT 95
[2024-04-17 17:34] VITALS: BP 130/77; TEMP 96.8; O2SAT 95
[2024-04-18 16:01] VITALS: BP 128/66; TEMP 97.5
[2024-04-18 20:03] VITALS: BP 128/66
[2024-04-19 06:26] VITALS: BP 131/64; TEMP 96.9; O2SAT 95
[2024-04-19 16:44] VITALS: BP 133/74; TEMP 97; O2SAT 99
[2024-04-20 06:30] VITALS: BP 136/72; TEMP 97; O2SAT 98
[2024-04-20] MEDS ORDERED: ZOLO100T PO (07:25)
[2024-04-20] MEDS ORDERED: PRAZ1CAP PO (07:25)
[2024-04-20] MEDS ORDERED: DIVA500T94 PO (07:25)
[2024-04-20] MEDS ORDERED: TRAZ-252 PO (07:25)
[2024-04-20] MEDS ORDERED: LIDO5TD TD (07:25)
[2024-04-20] MEDS ORDERED: MUPI2OI TOP (09:09)
== END 2024-04-20 13:58 | disposition home or self-care (01) | DRG 754 ==
LOC: M ED 17:50 → M ED INP 20:58 → M PSY 22:37
PROVIDERS: ADMIT Psychiatry & Neurology Psychiatry; ATTEND Psychiatry & Neurology Psychiatry
DX: F43.21 Adjustment disorder with depressed mood (principal); E11.9 Type 2 diabetes mellitus without complications; R45.851 Suicidal ideations; J45.909 Unspecified asthma, uncomplicated; F43.10 Post-traumatic stress disorder, unspecified; L01.00 Impetigo, unspecified; F41.9 Anxiety disorder, unspecified; F90.9 Attention-deficit hyperactivity disorder, unspecified type; M54.50 Low back pain, unspecified; G89.29 Other chronic pain; F17.290 Nicotine dependence, other tobacco product, uncomplicated; Z79.899 Other long term (current) drug therapy; Z91.51 Personal history of suicidal behavior; Z65.3 Problems related to other legal circumstances; Z56.0 Unemployment, unspecified; Z81.1 Family history of alcohol abuse and dependence

== ENCOUNTER 2024-07-25 07:35 | Emergency (ER) | payer MEDICAID, OTHER ==
[~2024-07-25] VITALS: Ht 162.6 cm; Wt 134.1 kg
[~2024-07-25 07:35] MED LIST changes: +ATOR1TAB21 PO; +AZO1CAP PO; +CINN500C15 PO; +CLIN1GEL22 TOP; +CVS1CAP2 PO; +CYAN2500 SL; +EXCETAB32 PO; +FIOR1CAP PO; +JARD1TAB PO; +LIDO5TD TD; +METF500T13 PO; +MUPI2OI TOP; +NAPR-885 PO; +PRAZ1CAP PO; +PROBCAP14 PO; +TRAZ-252 PO; +ZOLO100T PO
[2024-07-25] MEDS ORDERED: MUCI1TAB16 PO (08:06)
[2024-07-25] MEDS ORDERED: PENI500T PO (08:32)
[2024-07-25 08:38] VITALS: BP 123/71; TEMP 97.9; O2SAT 92
[2024-07-25] MEDS: PENICILLIN V POTASSIUM 500 MG TAB PO ONE (08:39)
[2024-07-25] MEDS: ACETAMINOPHEN 325 MG TAB PO ONE (08:39)
[2024-07-25] MEDS: NAPROXEN 250 MG TAB PO ONE (08:40)
== END 2024-07-25 09:27 | disposition home or self-care (01) ==
LOC: M ED 07:35
DX: J02.0 Streptococcal pharyngitis (principal); E11.9 Type 2 diabetes mellitus without complications; F41.9 Anxiety disorder, unspecified; F32.A Depression, unspecified; F90.9 Attention-deficit hyperactivity disorder, unspecified type; F43.10 Post-traumatic stress disorder, unspecified; Z79.1 Long term (current) use of non-steroidal anti-inflammatories (NSAID); Z79.51 Long term (current) use of inhaled steroids; Z79.2 Long term (current) use of antibiotics; Z79.84 Long term (current) use of oral hypoglycemic drugs; Z79.899 Other long term (current) drug therapy

== ENCOUNTER → 2024-09-06 | Outpatient (CLI) | payer OTHER ==
[~2024-09-06] MED LIST changes: +MUCI1TAB16 PO; +PENI500T PO
[2024-09-06 15:54] LABS: HEMOGLOBIN A1c 6.9 % (4.0-6.0)
== END ==
LOC: M PLALAB 12:03
PROVIDERS: ATTEND Nurse Practitioner Family
DX: E11.9 Type 2 diabetes mellitus without complications (principal)

== ENCOUNTER → 2024-09-11 | Outpatient (CLI) | payer OTHER | LOC: M WHC 14:04 | PROVIDERS: ATTEND Nurse Practitioner Family | DX: Z12.31 Encounter for screening mammogram for malignant neoplasm of breast (principal) ==

== ENCOUNTER → 2024-11-13 | Outpatient (REF) | payer OTHER, MEDICAID | LOC: M SFHCPLAZ 17:08 | PROVIDERS: ATTEND Physician Assistant Medical | DX: R30.0 Dysuria (principal) ==

== ENCOUNTER → 2025-04-04 | Outpatient (CLI) | payer MEDICARE, MEDICAID ==
[~2025-04-04] MED LIST changes: +DIVA-41 PO; -DIVA500T94 PO
[2025-04-04 13:50] LABS: BASO # 0.0 10^3/uL (0.0-0.2); BASO % 0.4 % (0.0-1.0); EOS # 0.1 10^3/uL (0.0-0.5); EOS % 1.3 % (0.0-3.0); LYMPH # 2.2 10^3/uL (1.5-5.0); LYMPH % 27.4 % (24.0-44.0); MONO # 0.6 10^3/uL (0.0-0.8); MONO % 8.0 % (2.0-8.0); NEUTROPHILS # 5.0 10^3/uL (1.5-8.5); NEUTROPHILS % 62.5 % (36.0-66.0); PLATELET COUNT, AUTOMATED 256 10^3/uL (150-450)
[2025-04-04 14:21] LABS: ALT/SGPT 16 U/L (7.0-40); AST/SGOT 19 U/L (<34); CALCIUM LEVEL 8.8 MG/DL (8.5-10.1); CARBON DIOXIDE LEVEL 28 MMOL/L (20-31); CHLORIDE LEVEL 101 MMOL/L (98-107); CREATININE FOR GFR 0.45 MG/DL (0.55-1.30); GLOMERULAR FILTRATION RATE > 90.0 (>58); POTASSIUM SERUM 3.9 MMOL/L (3.5-5.1); SODIUM LEVEL 141 MMOL/L (136-145)
[2025-04-04 14:38] LABS: ESTIMATED AVERAGE GLUCOSE 186.0 MG/DL (60-110)
== END ==
LOC: M PLALAB 10:37
PROVIDERS: ATTEND Nurse Practitioner Family
DX: R93.5 Abnormal findings on diagnostic imaging of other abdominal regions, including retroperitoneum (principal); E11.9 Type 2 diabetes mellitus without complications

== ENCOUNTER → 2025-06-06 | Outpatient (CLI) | payer MEDICARE, MEDICAID ==
[2025-06-06 15:35] LABS: ESTIMATED AVERAGE GLUCOSE 237.0 MG/DL (60-110)
== END ==
LOC: M PLALAB 12:13
PROVIDERS: ATTEND Nurse Practitioner Family
DX: E11.9 Type 2 diabetes mellitus without complications (principal); R93.5 Abnormal findings on diagnostic imaging of other abdominal regions, including retroperitoneum; D39.12 Neoplasm of uncertain behavior of left ovary